=== PATIENT | male | born 1955 | race Caucasian/White ===

== ENCOUNTER 2018-07-08 04:55 | Inpatient (IN) ==
[2018-07-08] MEDS ORDERED: LORazepam 1 MG/2 ML VIAL IV STA (05:17)
--- NOTE | 2018-07-08 05:22 | Emergency Department Note ---
History of Present Illness General Chief complaint: Chest Pain Stated complaint: CHEST PAIN, SOB, WEAKNESS, DIZZY History of Present Illness Maximum Pain Intensity: 5 This 63-year-old presents to the ER complaining of chest pain and dyspnea Location: Chest Quality: Achy Severity: Moderate Duration: One day Timing: Started yesterday Context: Symptoms persisted and patient came in Modifying factors: better with nothing; worse with nothing Patient is on methotrexate for his RA. No prior heart testing. No history of blood clots. He has injured his left leg recently from a fall. No family history of heart disease or blood clots. Patient denies personal history of blood pressure, cholesterol, diabetes alcohol or drug abuse or tobacco use. Patient is concerned he might have a blood clot. Patient denies abdominal pain, fever, chills, flulike illness. No diaphoresis. Home Medications Home Medications Medication Instructions Recorded Confirmed Type methotrexate sodium 2.5 mg PO WK 07/08/18 07/08/18 History naproxen sodium [Aleve] 220 mg PO BID PRN 07/08/18 07/08/18 History prednisone 10 mg PO WK PRN 07/08/18 07/08/18 History Allergies Allergy/AdvReac Type Severity Reaction Status Date / Time No Known Allergies Allergy Unverified 07/08/18 05:52 Past Med/Surg History Medical History Rheumatoid arthritis Social History Feels Safe at Home: Yes Smoking Status: Never smoker Review of Systems A total of 10 systems reviewed and were otherwise negative Physical Exam Vital Signs Vital Signs - 24 hr 07/08/18 05:02 07/08/18 05:24 07/08/18 06:11 Temperature 37 C Temperature Source Oral Sepsis Recent Fever Within 48 Hours No Sepsis New/Unexplained Change in Mental Status No Sepsis Action Taken by Nursing No Action Required Pulse Rate 90 Pulse Rate [Apical] 90 Respiratory Rate 20 21 Respiratory Effort / Characteristics Non-Labored Respiratory Depth Normal Blood Pressure 145/82 H Blood Pressure [Right Arm] 130/82 Blood Pressure Mean 103 Blood Pressure Mean [Right Arm] 98 Blood Pressure Position Sitting Pulse Oximetry 97 96 86 L Oxygen Delivery Method Room Air Room Air Room Air VITALS: Vitals are noted on the nurse's note and reviewed by myself. Vital signs stable. GENERAL: White male mildly anxious appearing, in no acute distress, nondiaphoretic, well-developed well-nourished. SKIN: The skin was without rashes, erythema, edema, or bruising. There is no tenting of the skin. Capillary reflex less than 2 seconds. HEAD: Normocephalic atraumatic. EARS: External auditory canals clear, tympanic membranes pearly schultz without er ythema or effusion bilaterally. EYES: Pupils equal round and reactive to light and accommodation. Conjunctivae without injection, sclerae without icterus. Extraocular movements intact. NOSE: Patent, turbinates without inflammation or discharge. MOUTH: Mucous membranes moist. Pharynx without erythema or exudate. Uvula midline. Airway patent. Tongue does not deviate. NECK: Supple without nuchal rigidity. No lymphadenopathy. No thyromegaly. Cervical spine is nontender. No JVD. HEART: Regular rate and rhythm without murmurs gallops or rubs. LUNGS: Clear to auscultation bilaterally without wheezes, rales or rhonchi. No retractions or accessory muscle use. ABDOMEN: Positive bowel sounds x 4. Normal tympanic percussion. Soft, nontender, without masses or organomegaly. Barahona sign negative. No guarding or rebound tenderness. No CVA tenderness MUSCULOSKELETAL: No muscle atrophy, noted. +1 pitting edema up to the mid tib- fib bilaterally. Chronic venous stasis changes bilaterally. Unchanged per family NEURO: Patient was alert and oriented to person place and time. Normal sensation to light and sharp touch. No focal neurological deficits. Course Administered Medications Ioversol (Optiray 320 125ml) 125 ml IV ONCE PRN PRN Reason: Interaction Checking Stop: 07/12/18 05:51 Last Admin: 07/08/18 05:52 Dose: 119 ml Documented by: [id number] Discontinued Medications Lorazepam (Ativan) 1 mg in 2 mls @ 2 mls/min IV NOW STA Stop: 07/08/18 05:18 Last Admin: 07/08/18 05:54 Dose: 2 mls/min Documented by: [id number] Medical Decision Making Medical Records Attestation: I reviewed the patient's medical records. Home Medications Current Medication List: was personally reviewed by me Laboratory Data Attestation: I reviewed the patient's lab results. Result diagrams: 07/08/18 05:15 07/08/18 05:15 Lab Results 07/08/18 07/08/18 07/08/18 Range/Units 05:15 05:15 05:21 WBC 10.88 H (4.8-10.8) K/uL RBC 4.34 L (4.7-6.1) M/uL Hgb 12.5 L (14.0-18.0) g/dL POC Hgb 12.9 L (14.0-18.0) g/dl Hct 37.9 L (42-52) % POC Hct 38 L (42-52) % MCV 87.3 (80-100) fL MCH 28.8 (25-34) pg MCHC 33.0 (32-36) g/dL RDW Std Deviation 54.0 H (36.4-46.3) fL RDW Coeff of Arlyn 16.9 H (11.5-14.5) % Plt Count 356 (130-400) K/uL MPV 9.9 (7.4-10.4) fL Immature Gran % (Auto) 0.2 % Neut % (Auto) 86.9 % Lymph % (Auto) 6.4 % Highland % (Auto) 6.3 % Eos % (Auto) 0.0 % Baso % (Auto) 0.2 % Immature Gran # (Auto) 0.02 (0.00-0.02) K/uL Neut # (Auto) 9.45 H (1.4-6.5) K/uL Lymph # (Auto) 0.70 L (1.2-3.4) K/uL Highland # (Auto) 0.69 H (0.11-0.59) K/uL Eos # (Auto) 0.00 (0-0.5) K/uL Baso # (Auto) 0.02 (0-0.2) K/uL POC D-Dimer (0-450) ng/mlFEU POC Sodium 138 (135-144) mEq/L Sodium 136 (136-145) mmol/L POC Potassium 4.5 (3.3-5.0) mEq/L Potassium 4.4 (3.5-5.1) mmol/L POC Chloride 102 (101-112) mEq/L Chloride 105 (98-107) mmol/L Carbon Dioxide 27 (21-32) mmol/L POC Total CO2 23 L (24-31) mEq/l Anion Gap 4.0 (3-11) POC Anion Gap 18.0 (16-25) mmol/L POC BUN 25 H (7-18) mg/dl BUN 26 H (7-18) mg/dl Creatinine 1.30 (0.6-1.4) mg/dl POC Creatinine 1.2 (0.6-1.3) mg/dl Est Cr Clr Drug Dosing 94.3 ml/min Est GFR ( Amer) 67.8 Est GFR (Non-Af Amer) 58.5 BUN/Creatinine Ratio 19.8 (10-20) Glucose 145 H (70-99) mg/dl POC Glucose (other) 146 H (70-99) mg/dl Calcium 8.7 (8.5-10.1) mg/dl POC Ioniz Calcium Raúl 1.22 (1.12-1.32) mmol/l Total Bilirubin 1.0 (0.2-1) mg/dl AST 72 H (15-37) U/L ALT 73 (12-78) U/L Alkaline Phosphatase 78 (45-117) U/L POC Troponin I (0-0.045) ng/ml Troponin I 0.103 H* (0-0.045) ng/ml Total Protein 6.8 (6.4-8.2) gm/dl Albumin 3.2 L (3.4-5.0) gm/dl Globulin 3.6 (2.5-4.0) gm/dl Albumin/Globulin Ratio 0.9 (0.9-2) Lipase 100 (73-393) U/L 07/08/18 Range/Units 05:21 WBC (4.8-10.8) K/uL RBC (4.7-6.1) M/uL Hgb (14.0-18.0) g/dL POC Hgb (14.0-18.0) g/dl Hct (42-52) % POC Hct (42-52) % MCV (80-100) fL MCH (25-34) pg MCHC (32-36) g/dL RDW Std Deviation (36.4-46.3) fL RDW Coeff of Arlyn (11.5-14.5) % Plt Count (130-400) K/uL MPV (7.4-10.4) fL Immature Gran % (Auto) % Neut % (Auto) % Lymph % (Auto) % Highland % (Auto) % Eos % (Auto) % Baso % (Auto) % Immature Gran # (Auto) (0.00-0.02) K/uL Neut # (Auto) (1.4-6.5) K/uL Lymph # (Auto) (1.2-3.4) K/uL Highland # (Auto) (0.11-0.59) K/uL Eos # (Auto) (0-0.5) K/uL Baso # (Auto) (0-0.2) K/uL POC D-Dimer > 450 H* (0-450) ng/mlFEU POC Sodium (135-144) mEq/L Sodium (136-145) mmol/L POC Potassium (3.3-5.0) mEq/L Potassium (3.5-5.1) mmol/L POC Chloride (101-112) mEq/L Chloride (98-107) mmol/L Carbon Dioxide (21-32) mmol/L POC Total CO2 (24-31) mEq/l Anion Gap (3-11) POC Anion Gap (16-25) mmol/L POC BUN (7-18) mg/dl BUN (7-18) mg/dl Creatinine (0.6-1.4) mg/dl POC Creatinine (0.6-1.3) mg/dl Est Cr Clr Drug Dosing ml/min Est GFR ( Amer) Est GFR (Non-Af Amer) BUN/Creatinine Ratio (10-20) Glucose (70-99) mg/dl POC Glucose (other) (70-99) mg/dl Calcium (8.5-10.1) mg/dl POC Ioniz Calcium Raúl (1.12-1.32) mmol/l Total Bilirubin (0.2-1) mg/dl AST (15-37) U/L ALT (12-78) U/L Alkaline Phosphatase (45-117) U/L POC Troponin I 0.07 H (0-0.045) ng/ml Troponin I (0-0.045) ng/ml Total Protein (6.4-8.2) gm/dl Albumin (3.4-5.0) gm/dl Globulin (2.5-4.0) gm/dl Albumin/Globulin Ratio (0.9-2) Lipase (73-393) U/L Imaging Data Attestation: I personally reviewed and interpreted this imaging study as follows: MDM Narrative Prior records/ancillary studies reviewed. Triage Nursing notes reviewed. Additional history obtained from family. The patient's history was concerning for chest pain. Differential diagnosis: Etiologies such as cardiac ischemia, aortic dissection, pulmonary embolism, pneumonia, pneumothorax, musculoskeletal, infections, pericarditis, myocarditis, esophageal rupture, gastrointestinal, as well as others were entertained. Physical examination: As above. ER treatment provided: Ativan IV On reassessment the patient felt better. Diagnostic interpretation by me: The electrocardiogram was negative for pathologic change. Poor baseline, normal sinus, normal intervals, no acute ST-T wave changes. Impression normal sinus rhythm interpreted by myself I think arrhythmia is unlikely. EKG shows normal sinus rhythm with no interval abnormalities such as QT prolongation or WPW. There are no findings to suggest Brugada syndrome. Cardiac monitoring in the emergency department reveals no tachycardic or bradycardic dysrhythmia. Hypertrophic cardiomyopathy was considered but there are no clear historical elements pointing toward this. EKG is not suggestive. The QRS voltage is not extremely large and there are no suggestive Q waves. Repeat EKG x2 with no acute changes noted. The labs revealed + trop Mild leukocytosis Imaging studies: Chest x-ray with no acute consolidation, pneumothorax or free air per my interpretation CTA CHEST: No visualized pulmonary embolus. Scant right and possible left pleural effusions. No pneumothorax. Interlobular septal thickening with groundglass attenuation in the lower lobes, right worse than left. Appearance is nonspecific though pneumonitis or other inflammatory/infectious etiology could be considered. Centrilobular left upper lobe emphysema and diffuse, multilobar cystic lung changes. Correlate with history. Dependent atelectasis. Borderline cardiomegaly. Radiologist: Ludin Coffey MD HEART SCORE: Hx: high/mod/low suspicion: 0 ECG: ST depression/nonspecific changes/normal: 0 Age: Greater than 65/45-64/less than 45: 1 Risk factors: (Hypertension, hyperlipidemia, diabetes, coronary disease, tobacco use, cocaine use): 1 Troponin: Greater than 2 times normal limits/1-2 times normal limits/normal: 0 Total: 2 Consultation: A consultation was placed with the hospitalist, Dr Gamino. The case was discussed and diagnostics were reviewed. The patient was evaluated in the ER for further treatment. Exam and history seem consistent with chest pain with pneumonitis on CAT scan and elevated troponin. Patient started antibiotics. Blood cultures were ordered. Medicine was consulted. Patient felt Completely pain-free after the Ativan. He is agreeable treatment plan of admission. By the evaluation outlined above emergent etiologies such as aortic dissection, pulmonary embolism, pneumothorax, pericarditis, myocarditis, gastrointestinal, as well as others were deemed relatively unlikely. The pt informed about the findings as listed above. All questions were answered and pleased with the treatment. Case reviewed with my attending The chart was completed utilizing [email or web address] voice recognition software. Grammatical errors, random word insertions, pronoun errors, and incomplete sentences are an occassional consequence of this system due to software limitations, ambient noise, and hardware issues. Any formal questions or concerns about the content, text, or information contained within the body of this dictation should be directly addressed to the physician assistant merchandiser for clarification. Impression & Plan Atypical chest pain, Pneumonia, Elevated troponin Discharge Plan Visit Data Chief Complaint: Chest Pain Stated Complaint: CHEST PAIN, SOB, WEAKNESS, DIZZY ED Provider: Viola Grijalva ED Midlevel Provider: Rubina Lam Discharge Problem: Atypical chest pain, Pneumonia, Elevated troponin Patient Disposition: Admitted As Inpatient Condition: Good Forms Stand Alone Forms: Call Back Authorization, [facility] Prescriptions Prescriptions: No Action prednisone 10 mg Tablet 10 mg PO WK PRN (Reason: Unknown) RF: 0 methotrexate sodium 2.5 mg Tablet 2.5 mg PO WK RF: 0 naproxen sodium [Aleve] 220 mg Capsule 220 mg PO BID PRN (Reason: Pain) RF: 0 Referrals Referrals: PCP,NO [Primary Care Provider] -
[2018-07-08 05:32] LABS: Basophils # (auto) 0.02 K/uL (0-0.2); Basophils % (auto) 0.2 %; Hematocrit (blood only) 37.9 % (42-52); Hemoglobin 12.5 g/dL (14.0-18.0); Immature Granulocytes # (auto) 0.02 K/uL (0.00-0.02); Immature Granulocytes % (auto) 0.2 %; Lymphocytes % (auto) 6.4 %; Mean Corpuscular Volume 87.3 fL (80-100); Mean Platelet Volume 9.9 fL (7.4-10.4); Monocytes # (auto) 0.69 K/uL (0.11-0.59); Monocytes % (auto) 6.3 %; Neutrophils # (auto) 9.45 K/uL (1.4-6.5); Neutrophils % (auto) 86.9 %; Platelet Count 356 K/uL (130-400); RDW Coefficient of Variation 16.9 % (11.5-14.5); Red Blood Count 4.34 M/uL (4.7-6.1); White Blood Count 10.88 K/uL (4.8-10.8)
[2018-07-08 05:34] LABS: iSTAT Creatinine 1.2 mg/dl (0.6-1.3); iSTAT Hemoglobin 12.9 g/dl (14.0-18.0); iSTAT Ionized Calcium 1.22 mmol/l (1.12-1.32); iSTAT Potassium 4.5 mEq/L (3.3-5.0)
[2018-07-08] MEDS ORDERED: OPTIRAY 320 125ml IV PRN (05:52)
[2018-07-08 05:53] LABS: Albumin Level 3.2 gm/dl (3.4-5.0); BUN Creatinine Ratio 19.8 (10-20); Calcium 8.7 mg/dl (8.5-10.1); Creatinine Clr Calc Pharmacy 94.3 ml/min; Est GFR (African American) 67.8; Est GFR (Non-African American) 58.5; Potassium 4.4 mmol/L (3.5-5.1)
[2018-07-08 06:19] LABS: Albumin Globulin Ratio 0.9 (0.9-2); Globulin 3.6 gm/dl (2.5-4.0); Total Protein 6.8 gm/dl (6.4-8.2); Troponin I 0.103 ng/ml (0-0.045)
[2018-07-08] MEDS ORDERED: cefTRIAXone SODIUM 1,000 MG/50 ML BAG IV STA (06:23)
[2018-07-08] MEDS ORDERED: AZITHROMYCIN 250 MG TAB PO ONE (06:23)
--- NOTE | 2018-07-08 06:59 | XRay Report ---
XR chest 1V portable CLINICAL HISTORY: Chest pain. Shortness of breath. COMPARISON STUDY: No previous studies for comparison. FINDINGS: Moderate cardiomegaly is noted. There is no pneumothorax or pleural effusion. There is mild asymmetric interstitial thickening and opacity within the right lower lung. Minimal left basilar opa city favors atelectasis. IMPRESSION: 1. Mild asymmetric interstitial thickening and opacity within the right lung. A mild infectious proce ss is favored. Asymmetric pulmonary edema could appear similar although is considered less likely. 2. Moderate cardiomegaly. Electronically signed by: Quincy Spears M.D. 07/08/2018 6:58 AM
[2018-07-08 07:06] LABS: HCO3 ABG 21 mmol/L (19-24); PCO2 ABG 31 mmHg (35-46); PO2 ABG 87 mm/Hg (80-95); pH ABG 7.44 (7.35-7.45)
[2018-07-08 07:07] LABS: Allen Test Pos (Pos)
--- NOTE | 2018-07-08 07:08 | History & Physical Report ---
Date of Service July 08, 2018 Assessment & Plan (1) Acute hypoxemic respiratory failure: Secondary to acute CHF ? 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 Hemoglobin drop from baseline ? Secondary to MTRX Steroid-induced hyperglycemia rule out DM past tobacco abuse. PCU Supplemental O2 Baseline ABG Diuretic Rx Strict I/Os, daily weights, CHF education Low-dose beta-minesh TTE, Cardiology consult RE new onset CHF Outpatient sleep study Follow troponin, aspirin for CAD prevention until ACS ruled out Abdominal ultrasound ro ascites Doxycycline, local measures for LE cellulitis LE venous Dopplers rule out DVT Check hemoglobin A1c Anemia workup DVT prophylaxis. Lovenox subcu Full code Total critical time was 45 minutes. History of Present Illness Chief Complaint: Chest pain, SOB Primary Care Provider: NO PCP History obtained from patient, family, and records. Medical history significant for rheumatoid arthritis, chronic LE lymphedema, chronic anemia enclosing (baseline hemoglobin 13), past tobacco abuse. 1 month history of increasing shortness of breath especially on exertion, fluid retention, abdominal distention, and increased bilateral leg swelling. Patient unable to lie flat on the bed when sleeping for years now. No unusual cough symptoms. Patient noted by to be snoring during sleep and having episodes of breathing cessation during sleep which would rouse patient during sleep. No consultations done. No previous sleep studies. Yesterday patient noted transient achy substernal discomfort with worsening shortness of breath symptoms. Increased leg redness noted in the last few days. At the ER, patient noted to be hypoxemic O2 sats 80s. Patient given Ceftriaxone and azithromycin at the ER for pneumonitis on CT. 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 Allergies Allergy/AdvReac Type Severity Reaction Status Date / Time No Known Allergies Allergy Unverified 07/08/18 05:52 Home Medications Home Medications Medication Instructions Recorded Confirmed Type methotrexate sodium 2.5 mg PO WK 07/08/18 07/08/18 History naproxen sodium [Aleve] 220 mg PO BID PRN 07/08/18 07/08/18 History prednisone 10 mg PO WK PRN 07/08/18 07/08/18 History Past Med/Surg History Medical History Rheumatoid arthritis Social History Preferred Language: [place] Communication Ability: Effective Beliefs That Will Affect Care: None Current Living Situation: Spouse Other Information That Helps Us Care for You: No Feels Safe at Home: Yes Safety Concerns: Feels Safe At This Time Smoking Status: Never smoker Hx Alcohol Use: No Hx Substance Use: No Review of Systems As per HPI, all 10 systems reviewed, all other ROS negative Physical Exam Vital Signs (Past 24 Hours): Last Vital Signs Temp 37 C 07/08/18 05:02 Pulse 86 07/08/18 06:50 Resp 20 07/08/18 06:50 BP 127/89 07/08/18 06:50 Pulse Ox 95 07/08/18 06:50 Physical Exam: GENERAL: Comfortable, no respiratory distress, obese SKIN: Pallor , warm HEENT: Partial alopecia, pale palpebral conjunctivae, no ptosis, dry buccal mucosa NECK : Supple, short, no tenderness CHEST : Decreased breath sounds , no tenderness HEART : RRR, no obvious murmurs ABDOMEN: Some distention, nontender EXTREMITIES : meseret LE swelling/induration with focal contusions/abrasions, no LE tenderness, no other conspicuous deformities noted NEUROLOGIC : Coherent, no facial asymmetry, no other gross focality Results & Data Laboratory Results Laboratory Results WBC 10.88 K/uL (4.8-10.8) H 07/08/18 05:15 RBC 4.34 M/uL (4.7-6.1) L 07/08/18 05:15 Hgb 12.5 g/dL (14.0-18.0) L 07/08/18 05:15 POC Hgb 12.9 g/dl (14.0-18.0) L 07/08/18 05:21 Hct 37.9 % (42-52) L 07/08/18 05:15 POC Hct 38 % (42-52) L 07/08/18 05:21 MCV 87.3 fL (80-100) 07/08/18 05:15 MCH 28.8 pg (25-34) 07/08/18 05:15 MCHC 33.0 g/dL (32-36) 07/08/18 05:15 RDW Std Deviation 54.0 fL (36.4-46.3) H 07/08/18 05:15 RDW Coeff of Arlyn 16.9 % (11.5-14.5) H 07/08/18 05:15 Plt Count 356 K/uL (130-400) 07/08/18 05:15 MPV 9.9 fL (7.4-10.4) 07/08/18 05:15 Immature Gran % (Auto) 0.2 % 07/08/18 05:15 Neut % (Auto) 86.9 % 07/08/18 05:15 Lymph % (Auto) 6.4 % 07/08/18 05:15 Schuyler % (Auto) 6.3 % 07/08/18 05:15 Eos % (Auto) 0.0 % 07/08/18 05:15 Baso % (Auto) 0.2 % 07/08/18 05:15 Immature Gran # (Auto) 0.02 K/uL (0.00-0.02) 07/08/18 05:15 Neut # (Auto) 9.45 K/uL (1.4-6.5) H 07/08/18 05:15 Lymph # (Auto) 0.70 K/uL (1.2-3.4) L 07/08/18 05:15 Schuyler # (Auto) 0.69 K/uL (0.11-0.59) H 07/08/18 05:15 Eos # (Auto) 0.00 K/uL (0-0.5) 07/08/18 05:15 Baso # (Auto) 0.02 K/uL (0-0.2) 07/08/18 05:15 POC D-Dimer > 450 ng/mlFEU (0-450) H* 07/08/18 05:21 ABG pH 7.44 (7.35-7.45) 07/08/18 06:47 ABG pCO2 31 mmHg (35-46) L 07/08/18 06:47 ABG pO2 87 mm/Hg (80-95) 07/08/18 06:47 ABG HCO3 21 mmol/L (19-24) 07/08/18 06:47 ABG O2 Saturation 97.0 % (90-95) H 07/08/18 06:47 ABG Base Excess -2.5 mEq/L (-9-1.8) 07/08/18 06:47 Adrien Test Pos (Pos) 07/08/18 06:47 Barometric Pressure 738.3 mm/Hg 07/08/18 06:47 Oxygen Given 3L 07/08/18 06:47 POC Sodium 138 mEq/L (135-144) 07/08/18 05:21 Sodium 136 mmol/L (136-145) 07/08/18 05:15 POC Potassium 4.5 mEq/L (3.3-5.0) 07/08/18 05:21 Potassium 4.4 mmol/L (3.5-5.1) 07/08/18 05:15 POC Chloride 102 mEq/L (101-112) 07/08/18 05:21 Chloride 105 mmol/L (98-107) 07/08/18 05:15 Carbon Dioxide 27 mmol/L (21-32) 07/08/18 05:15 POC Total CO2 23 mEq/l (24-31) L 07/08/18 05:21 Anion Gap 4.0 (3-11) 07/08/18 05:15 POC Anion Gap 18.0 mmol/L (16-25) 07/08/18 05:21 POC BUN 25 mg/dl (7-18) H 07/08/18 05:21 BUN 26 mg/dl (7-18) H 07/08/18 05:15 Creatinine 1.30 mg/dl (0.6-1.4) 07/08/18 05:15 POC Creatinine 1.2 mg/dl (0.6-1.3) 07/08/18 05:21 Est Cr Clr Drug Dosing 94.3 ml/min 07/08/18 05:15 Est GFR ( Amer) 67.8 07/08/18 05:15 Est GFR (Non-Af Amer) 58.5 07/08/18 05:15 BUN/Creatinine Ratio 19.8 (10-20) 07/08/18 05:15 Glucose 145 mg/dl (70-99) H 07/08/18 05:15 POC Glucose (other) 146 mg/dl (70-99) H 07/08/18 05:21 Calcium 8.7 mg/dl (8.5-10.1) 07/08/18 05:15 POC Ioniz Calcium Raúl 1.22 mmol/l (1.12-1.32) 07/08/18 05:21 Total Bilirubin 1.0 mg/dl (0.2-1) 07/08/18 05:15 AST 72 U/L (15-37) H 07/08/18 05:15 ALT 73 U/L (12-78) 07/08/18 05:15 Alkaline Phosphatase 78 U/L (45-117) 07/08/18 05:15 POC Troponin I 0.07 ng/ml (0-0.045) H 07/08/18 05:21 Troponin I 0.103 ng/ml (0-0.045) H* 07/08/18 05:15 Total Protein 6.8 gm/dl (6.4-8.2) 07/08/18 05:15 Albumin 3.2 gm/dl (3.4-5.0) L 07/08/18 05:15 Globulin 3.6 gm/dl (2.5-4.0) 07/08/18 05:15 Albumin/Globulin Ratio 0.9 (0.9-2) 07/08/18 05:15 Lipase 100 U/L (73-393) 07/08/18 05:[address] chest initial read: No pulmonary embolism, scant right and possible left pleural effusions, no pneumothorax. Anterior lobular septal thickening with groundglass attenuation in the lower lobes right greater than the left. Emphysema, borderline cardiomegaly EKG as per my interpretation rate 90, NSR, T wave flattening lateral leads, PVCs
[2018-07-08 07:11] LABS: INR 1.1 (0.9-1.1); Partial Thromboplastin Ratio 1.1; Partial Thromboplastin Time 29.3 Seconds (21.0-31.0); Prothrombin Time 11.1 Seconds (9.0-12.0)
[2018-07-08] MEDS ORDERED: ALBUT/IPRATROP 3MG/0.5MG NEB 3 ML VIAL NEB STA (07:12)
[2018-07-08 07:25] LABS: Influenza A virus by PCR Neg for Influ A (Neg); Influenza B virus by PCR Neg for Influ B (Neg)
[2018-07-08] MEDS ORDERED: FUROSEMIDE 40 MG/4 ML VIAL IV STA (07:33)
--- NOTE | 2018-07-08 07:35 | CT Scan Report ---
CT ANGIOGRAM OF THE CHEST CLINICAL HISTORY: Atypical chest pain. Dyspnea. COMPARISON STUDY: Chest x-ray dated 07/08/2018. TECHNIQUE: Following the IV administration of 119 cc of Optiray 320, CT angiogram of the chest was pe rformed from the upper abdomen to the thoracic inlet utilizing the pulmonary embolus protocol. Images are reviewed in the axial, sagittal, and coronal planes. 3-D MIPS images are created and assessed. I V contrast was administered without complication. A dose lowering technique was utilized adhering to the principles of ALARA. CT DOSE: 842.63 mGy.cm FINDINGS: Thyroid: Atrophic and heterogeneous. Thoracic aorta: The thoracic aorta is normal in caliber and demonstrates standard 3-vessel arch anato my. No dissection is seen. Pulmonary vasculature: The pulmonary trunk is normal in caliber. There are no filling defects identif ied in main, lobar, or segmental pulmonary branches to suggest pulmonary embolus. Heart: The heart is normal in size and without pericardial effusion. Lungs and pleural spaces: Evaluation of lung parenchyma is modestly degraded by motion artifact. Adva nced emphysema is noted. There is bibasilar scarring/atelectasis. No airspace consolidation is seen t ypical for pneumonia. Trace pleural fluid is noted at the right lung base. A punctate calcified granu gayatri is seen at the right lung base. Mediastinum: There are numerous mildly enlarged mediastinal lymph nodes. Right peritracheal nodes mitlon sure up to 10 mm in short axis. AP window nodes measure up to 9 mm short axis. Zohreh: Mildly enlarged hilar nodes measure up to 16 mm in short axis. Axillae: There is no axillary lymphadenopathy. Upper abdomen: The liver is cirrhotic in morphology and heterogeneous in attenuation. There is nodula rity of the hepatic surface contour. There is a small hiatal hernia. The spleen is normal in size. Skeletal structures: The skeletal structures are osteopenic. Degenerative change is noted in the shou lders and thoracic spine. No lytic or blastic bony lesions are seen. IMPRESSION: 1. There is no evidence of pulmonary embolus in the main, lobar, or segmental pulmonary arteries. 2. Cardiomegaly and emphysema. 3. Cirrhotic liver morphology. 4. Trace pleural fluid is seen in the right lung base. 5. Mildly enlarged mediastinal and hilar lymph nodes are nonspecific and may be on a reactive basis. Clinical correlation will be required. 6. Additional findings as above. Electronically signed by: Han Page M.D. 07/08/2018 7:34 AM
[2018-07-08 07:47] LABS: Magnesium 2.1 mg/dl (1.8-2.4); Troponin I 0.096 ng/ml (0-0.045)
[2018-07-08] MEDS ORDERED: MoRPHine SULFATE 4 MG/ML 1 ML CARP\\VIAL IV PRN (08:26)
[2018-07-08] MEDS ORDERED: PROCHLORPERAZINE 5 MG in SYRINGE 4 ML IV PRN (08:26)
[2018-07-08] MEDS ORDERED: IPRATROPIUM BROMIDE NEB SOLN 0.02% 2.5 ML VIAL INH PRN (08:26)
[2018-07-08] MEDS ORDERED: LEVALBUTEROL 1.25MG/0.5ML NEB INH PRN (08:26)
[2018-07-08] MEDS ORDERED: NITROGLYCERIN SL 0.4 MG/TAB TAB SL PRN (08:26)
[2018-07-08] MEDS ORDERED: XOPENEX/ATROVENT 1.25mg/0.5MG NEB COMBO NEB PRN (08:26)
[2018-07-08] MEDS ORDERED: METOPROLOL TARTRATE 25 MG TAB PO SCH (09:00)
[2018-07-08] MEDS ORDERED: PERFLUTREN LIPID MICROSPHERE (DEFINITY) IV ONE (09:14)
[2018-07-08 09:55] LABS: Estimated Average Glucose 126 mg/dl
[2018-07-08] MEDS: ASPIRIN 81 MG ECTAB PO SCH (10:36)
--- NOTE | 2018-07-08 10:36 | Ultrasound Report ---
US venous doppler LE BI CLINICAL HISTORY: leg swelling COMPARISON STUDY: 11/13/2017 FINDINGS: Real-time and color flow Doppler imaging were performed. Flow was seen within the femoral, popliteal and calf veins with no intraluminal thrombus demonstrated. The saphenous vein is patent. IMPRESSION: No evidence of lower extremity DVT. Electronically signed by: Berhane Harrington M.D. 07/08/2018 10:35 AM
[2018-07-08] MEDS: DOXYCYCLINE HYCLATE 100 MG CAP PO SCH ×2 (10:37→21:02)
[2018-07-08] MEDS: ENOXAPARIN INJ 40 MG/0.4 ML SYR SQ SCH (10:38)
--- NOTE | 2018-07-08 10:39 | Ultrasound Report ---
US abdomen limited CLINICAL HISTORY: Abdominal distention COMPARISON STUDY: No previous studies for comparison. FINDINGS: A limited abdominal ultrasound was performed to evaluate for ascites. A four-quadrant surve y revealed no ascites. IMPRESSION: No ascites identified. Electronically signed by: Berhane Harrington M.D. 07/08/2018 10:37 AM
[2018-07-08] MEDS ORDERED: FUROSEMIDE 40 MG in SYRINGE 0 ML IV ONE ×2 (17:00→18:09)
[2018-07-08] MEDS ORDERED: Nursing to Pharmacy Communication ONE (19:07)
[2018-07-08] MEDS: METOPROLOL SUCC 25MG EXT REL TAB PO SCH (21:02)
--- NOTE | 2018-07-09 01:45 | Consultation Report ---
DATE OF CONSULTATION: 07/08/2018 REFERRING PHYSICIAN: Geovany Gamino MD. The patient has no primary care physician at this time. HISTORY OF PRESENT ILLNESS: The patient is a 63-year-old male with past medical history per discussion with the patient and review of records is notable for longstanding rheumatoid arthritis on combination of methotrexate and intermittent prednisone per patient. He noticed he has not seen medical care for extended period of time. He has been currently receiving medications through mail from [facility]. He denies any prior history of cardiac disease historically, but presents this admission, noting several weeks to months of gradually increasing lower extremity edema and dyspnea with worsening orthopnea and chest pressure over the last 1-2 days. Symptoms were associated with increasing lower extremity edema and abdominal bloating due to worsening complaints. He sought medical care after reading online concerns regarding possible pulmonary embolus. Initial evaluation revealed no evidence of pulmonary emboli or thromboembolus. Examination suggested right heart failure greater than left with edema and abdominal bloating. Echocardiogram since admission, subsequently, has demonstrated diffuse cardiomyopathy. He is referred now for further evaluation. He denies any history of myocardial infarction, angina, TIA or stroke, rheumatic fever, scarlet fever, renal or hepatic disease. He is unaware of history of sleep apnea but does note recent difficulties with sleep disruption due to orthopnea. Denies headache or visual changes, rash, or arthritic complaint. Notes no melena or hematochezia, dysuria or hematuria. Notes no prior history of hypertension. Notes no specific symptoms of chest pain or discomfort. He has been very sedentary over the winter months due to occupation and several mechanical falls with mild injuries when walking on ice. REVIEW OF SYSTEMS: Otherwise negative. ALLERGIES: None. MEDICATIONS: At home are methotrexate 2.5 mg weekly, naproxen 220 mg p.o. b.i.d. p.r.n. and prednisone 10 mg p.o. weekly p.r.n. PAST SURGICAL HISTORY: Notable for cataract extractions and retinal detachment repair x2. FAMILY HISTORY: Notable for heart failure in mother. SOCIAL HISTORY: The patient resides in [place]. 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 He is a nonsmoker, nondrinker. PHYSICAL EXAMINATION: GENERAL: The patient is an obese, age-appropriate male in no acute distress when sitting upright, though dyspneic when lying flat. VITAL SIGNS: Heart rate 79, blood pressure is 116/80, O2 saturations 97% on room air. HEENT: Normocephalic and atraumatic. Nares without discharge. Throat was clear. NECK: Supple without thyromegaly, lymphadenopathy. There is no distinct jugular venous distention. Neck is thick. There are no carotid bruits. LUNGS: Reveal diminished breath sounds bibasilar. CARDIOVASCULAR: Regular with distant heart sounds. There is no S3 gallop. PMI is nondisplaced. ABDOMEN: Obese, soft with moderate fluid wave. There is no palpable hepatosplenomegaly. EXTREMITIES: Without cyanosis or clubbing. There is 3+ lower extremity edema to the knees. Pulses are palpable bilaterally. There is no audible abdominal or femoral bruit. NEUROLOGIC: The patient is alert and answering questions appropriately. DATA: EKG on presentation reveals sinus rhythm with premature atrial beats. Nonspecific ST segment changes. Repeat EKG demonstrates similar findings. Echocardiogram performed on 07/08/2018 demonstrated technically limited study secondary to patient body habitus. There is diffuse LV dysfunction, EF 35%-40%. No distinct segmental features noted. No significant valvular disease with mild mitral insufficiency. Tricuspid valve regurgitant velocities were not able to be obtained. Chest x-ray on presentation revealed mild increase in interstitial markings asymmetrically right greater than left. CT scan of the chest revealed no evidence of pulmonary embolus, cardiomegaly and emphysematous changes are noted. Cirrhotic liver morphology have been expressed. LABORATORY STUDIES: White cell count was 10.8, hemoglobin 12.5, platelet count 356. Initial point of care troponin was 0.07. Serial troponins have demonstrated 0.096 and 0.1. BNP was 1642 on presentation. Sodium is 138, potassium 4.5, chloride 102, bicarb 23, BUN 25, creatinine 1.2. AST was 72, ALT was 73. Albumin level is 3.4. IMPRESSION: Complex 63-year-old male who carries a history of underlying rheumatoid arthritis on immunosuppressive therapy with methotrexate and intermittent prednisone. No recent ongoing medical care, presents now with subacute worsening dyspnea, orthopnea, right greater than left heart failure by exam and history. Echocardiogram demonstrates diffuse LV dysfunction, etiology undiscerned at this time. Findings are consistent with new onset cardiomyopathy. Discussed in detail with the patient treatment and therapies as patient remains symptomatic, additional dose of furosemide will be given this evening, begin initiating guideline-based medical regimen, adding Toprol-XL 12.5 mg twice per day for heart rate and blood pressure control. Anticipate adding JEFFERY inhibitor as course progresses, consider diagnostic cardiac catheterization. Based on laboratory studies added including TSH, serum protein electrophoresis, iron studies already as ordered. We will continue to follow the patient closely in hospital. I agree with evaluation of possible underlying sleep apnea as an additional contributing factor.
[2018-07-09 05:43] LABS: Basophils # (auto) 0.03 K/uL (0-0.2); Basophils % (auto) 0.4 %; Eosinophils # (auto) 0.38 K/uL (0-0.5); Eosinophils % (auto) 4.8 %; Hematocrit (blood only) 35.1 % (42-52); Hemoglobin 11.5 g/dL (14.0-18.0); Immature Granulocytes # (auto) 0.02 K/uL (0.00-0.02); Immature Granulocytes % (auto) 0.3 %; Lymphocytes # (auto) 1.78 K/uL (1.2-3.4); Lymphocytes % (auto) 22.7 %; Mean Corpuscular Hgb Conc 32.8 g/dL (32-36); Mean Corpuscular Volume 87.8 fL (80-100); Mean Platelet Volume 9.4 fL (7.4-10.4); Monocytes # (auto) 0.62 K/uL (0.11-0.59); Monocytes % (auto) 7.9 %; Neutrophils # (auto) 5.02 K/uL (1.4-6.5); Neutrophils % (auto) 63.9 %; Platelet Count 297 K/uL (130-400); RDW Coefficient of Variation 16.8 % (11.5-14.5); RDW Standard Deviation 53.9 fL (36.4-46.3); Reticulocyte % 1.6 % (0.5-2.0); Reticulocytes # 0.06 10^6/uL (0.02-0.10); White Blood Count 7.85 K/uL (4.8-10.8)
[2018-07-09 06:02] LABS: BUN Creatinine Ratio 21.2 (10-20); Calcium 8.3 mg/dl (8.5-10.1); Creatinine Clr Calc Pharmacy 99.6 ml/min; Est GFR (African American) 72.5; Est GFR (Non-African American) 62.5; Potassium 3.6 mmol/L (3.5-5.1)
[2018-07-09 06:12] LABS: Ferritin 125.3 ng/ml (8-388)
[2018-07-09] MEDS: METOPROLOL SUCC 25MG EXT REL TAB PO SCH ×2 (07:28→20:37)
[2018-07-09] MEDS: DOXYCYCLINE HYCLATE 100 MG CAP PO SCH ×2 (07:28→20:36)
[2018-07-09] MEDS: ENOXAPARIN INJ 40 MG/0.4 ML SYR SQ SCH (07:29)
[2018-07-09] MEDS: ASPIRIN 81 MG ECTAB PO SCH (07:29)
[2018-07-09 08:10] LABS: Folate (Folic Acid) 4.28 ng/ml (>5.38)
[2018-07-09] MEDS ORDERED: FUROSEMIDE 40 MG/4 ML VIAL IV STA (09:30)
[2018-07-09] MEDS ORDERED: POTASSIUM CHLORIDE 10 MEQ TABCR PO ONE (09:32)
[2018-07-09] MEDS: LISINOPRIL 2.5 MG TAB PO SCH (11:09)
--- NOTE | 2018-07-09 14:04 | Cardiology Progress Note ---
Date of Service July 09, 2018 Assessment & Plan (1) Cardiomyopathy: Patient with newly diagnosed diffuse cardiomyopathy with moderate left dysfunction, right greater than left heart failure manifesting with abdominal bloating edema Patient is improving with IV diuretics and has tolerated addition of low-dose Toprol to regimen. Additional dose of furosemide IV given this morning We will add low-dose JEFFERY inhibitor with lisinopril 2.5 mg/day Initial iron studies and thyroid functions are normal, lipids are not elevated Tentatively planned diagnostic coronary angiography in a.m., n.p.o. after midnight (2) Acute hypoxemic respiratory failure: Subjective Patient seen and examined, chart, telemetry reviewed. Patient had brisk diuresis overnight less dyspneic and orthopneic persistent lower extremity edema remains present. Telemetry reveals no tachyarrhythmias Physical Exam Vital Signs (Past 24 Hours): Last Vital Signs Temp 36.9 C 07/09/18 11:11 Pulse 84 07/09/18 11:11 Resp 20 07/09/18 11:11 BP 108/56 L 07/09/18 11:11 Pulse Ox 94 07/09/18 11:11 Constitutional: + obese; no acute distress Eyes: PERRL, conjunctivae normal, anicteric sclerae Neck: + thick neck Respiratory: Auscultation: + diminished lung sounds (But clear otherwise) Cardiovascular: Rate/Rhythm: regular rate and regular rhythm Heart Sounds: normal S1 and normal S2; no gallop, no murmur and no cardiac rub Extremities: + edema (2+ bilateral) Gastrointestinal (Abdomen): normal bowel sounds, soft, nontender, no hepatosplenomegaly Results & Data Laboratory Results Laboratory Results - last 24 hr 07/09/18 07/09/18 07/09/18 05:30 05:30 05:30 WBC 7.85 RBC 4.00 L Hgb 11.5 L Hct 35.1 L MCV 87.8 MCH 28.8 MCHC 32.8 RDW Std Deviation 53.9 H RDW Coeff of Arlyn 16.8 H Plt Count 297 MPV 9.4 Immature Gran % (Auto) 0.3 Neut % (Auto) 63.9 Lymph % (Auto) 22.7 Pitkin % (Auto) 7.9 Eos % (Auto) 4.8 Baso % (Auto) 0.4 Reticulocyte % (Auto) 1.6 Immature Gran # (Auto) 0.02 Neut # (Auto) 5.02 Lymph # (Auto) 1.78 Pitkin # (Auto) 0.62 H Eos # (Auto) 0.38 Baso # (Auto) 0.03 Reticulocyte # 0.06 Sodium 142 Potassium 3.6 D Chloride 107 Carbon Dioxide 27 Anion Gap 8.0 BUN 26 H Creatinine 1.23 Est Cr Clr Drug Dosing 99.6 Est GFR ( Amer) 72.5 Est GFR (Non-Af Amer) 62.5 BUN/Creatinine Ratio 21.2 H Glucose 94 Calcium 8.3 L Iron 37 TIBC 317 Transferrin 243 Ferritin 125.3 Triglycerides 86 Cholesterol 143 LDL Cholesterol, Calc 85 VLDL Cholesterol, Calc 17 HDL Cholesterol 41 Cholesterol/HDL Ratio 4 Vitamin B12 268 Folate 4.28 L TSH 3.170
--- NOTE | 2018-07-09 16:38 | Hospitalist Progress Note ---
Date of Service July 09, 2018 Assessment & Plan (1) Cardiomyopathy: Newly dx cardiomyopathy ECHO showed reduced EF btw 35-40% Cardiology on board Starting on Low dose Toprol and ACEI Lasix 40mg IV given again today Imflamatory marker pending Case discussed with cardiology and plan for cardiac cath in am Will make NPO after midnight Clinically improves Monitor BMP while on diuretic (2) Acute hypoxemic respiratory failure: possible related to cardiomyopathy vs pneumonia CXR showed mild asymmetric interstitial thickening and opacity within the right lung CTA showed no evidence for PE WBC elevated on admission On doxycycline BID Will repeat CXR in am Doubt about pneumonia Continue oxygen supplement (3) Anxiety: will add low dose of benzo prn while in the hospital (4) Elevated troponin: Due to demand ischemia from cardiomyopathy/fluid overload Troponin trending down EKG showed no ischemic changes Continue aspirin, toprol and statin Schedule for cardiac cath in am Denies any chest pain currently DVT px on Lovenox CODE STATUS full code Subjective Pt was seen and examined Lying in bed with no distress Pt said that he is very anxious to be in the hospital about the cardiac cath tomorrow He said that he is breathing slightly improves Denies any chest pain, palpitation, dizziness and fever Physical Exam Vital Signs (Past 24 Hours): Last Vital Signs Temp 36.6 C 07/09/18 15:37 Pulse 91 H 07/09/18 15:37 Resp 20 07/09/18 15:37 BP 103/64 07/09/18 15:37 Pulse Ox 96 07/09/18 15:37 Physical Exam: General- No acute distress, obesity Head- atraumatic Eyes- PERRL, EOMI, ENT- oropharynx clear Neck- supple, no JVD Lungs- clear to auscultation Heart- regular rhythm; no murmur Abdomen- normal bowel sounds, soft, nontender Extremities- no calf tenderness, +edema Neuro- alert, oriented x 3; PERRL, EOMI; no facial palsy; no dysarthria Skin- warm & dry
[2018-07-09] MEDS ORDERED: LORazepam 0.5 MG TAB PO PRN (18:47)
[2018-07-10] MEDS ORDERED: MIDAZOLAM HCL 1 MG/ML 2ML VIAL ONE (08:53)
[2018-07-10] MEDS ORDERED: fentaNYL citrate 100 MCG/2 ML VIAL ONE (08:53)
[2018-07-10] MEDS ORDERED: HEPARIN (PORCINE) 1000 UNIT/ML 10 ML (CATH LAB USE ONLY) ONE (08:53)
[2018-07-10] MEDS ORDERED: NiCARDipine HCL INJ 2.5 MG/ML 10 ML AMP ONE (08:53)
[2018-07-10] MEDS ORDERED: NITROGLYCERIN/D5W 100MCG/ML 20ML SYR ONE (08:54)
--- NOTE | 2018-07-10 09:19 | Cardiology Progress Note ---
Date of Service July 10, 2018 Assessment & Plan (1) Cardiomyopathy: Patient with newly diagnosed diffuse cardiomyopathy with moderate left dysfunction, right greater than left heart failure manifesting with abdominal bloating edema Patient has tolerated addition of Toprol, lisinopril, manifested good diuresis Plan diagnostic coronary angiography this morning. Procedure and risks explained in detail informed consent obtained (2) Acute hypoxemic respiratory failure: Subjective Patient seen and examined, chart, telemetry reviewed. Patient with continued diuresis. Some difficulty sleeping last night but no other acute complaints orthopnea has improved. No chest pains or tachypalpitations no arrhythmias on telemetry Physical Exam Vital Signs (Past 24 Hours): Last Vital Signs Temp 37.1 C 07/10/18 07:47 Pulse 84 07/10/18 07:47 Resp 20 07/10/18 07:47 BP 128/92 07/10/18 07:47 Pulse Ox 94 07/10/18 07:47 Constitutional: + obese; no acute distress Eyes: PERRL, conjunctivae normal, anicteric sclerae Neck: + thick neck Respiratory: Auscultation: + diminished lung sounds (But clear otherwise) Cardiovascular: Rate/Rhythm: regular rate and regular rhythm Heart Sounds: normal S1 and normal S2; no gallop, no murmur and no cardiac rub Extremities: + edema (2+ bilateral) Gastrointestinal (Abdomen): normal bowel sounds, soft, nontender, no hepatosplenomegaly Results & Data Laboratory Results Laboratory Results - last 24 hr 07/09/18 23:50 Stool Occult Bld Scrn Negative
--- NOTE | 2018-07-10 09:21 | Pre Anesthesia Assessment ---
Date of Service July 10, 2018 Pre Sedation Assessment Vital Signs Temp Pulse Pulse Resp BP BP Pulse Ox 07/10/18 07:47 37.1 C 84 20 128/92 94 07/10/18 04:09 37.3 C 56 L 20 146/97 H 95 07/10/18 00:44 81 07/09/18 23:53 36.9 C 91 H 20 134/89 91 07/09/18 19:12 36.7 C 88 18 105/65 96 07/09/18 16:00 81 07/09/18 15:37 36.6 C 91 H 20 103/64 96 07/09/18 11:11 36.9 C 84 20 108/56 L 94 Cardiovascular RRR, no murmur, no edema Respiratory + diminished lung sounds (Clear) Pre-Sedation Airway Assessment Smoking Status: Never smoker Mallampati Class: III Procedure Planning Contraindications for Sedation: none Current Medications Reviewed: Yes Notes The planned sedation has been discussed with the patient. Informed Consent was obtained. I have identified the patient, determined the appropriateness of sedation and have assessed the patient immediately prior to the procedure. All medicine(s) and interventions are by my order.
[2018-07-10 10:38] LABS: iSTAT Creatinine 1.2 mg/dl (0.6-1.3); iSTAT Hemoglobin 11.9 g/dl (14.0-18.0); iSTAT Ionized Calcium 1.14 mmol/l (1.12-1.32); iSTAT Potassium 3.8 mEq/L (3.3-5.0)
--- NOTE | 2018-07-10 10:38 | Cardiac Catheterization ---
Cardiac Cath Procedure: Brief Procedure Date July 10, 2018 Pre-Procedure Diagnosis Pre-Procedure Diagnosis: Cardiomyopathy AUC Score AUC Score: 8 Post-Procedure Diagnosis Post-Procedure Diagnosis: Mild CAD Procedure(s) Performed Procedure(s) Performed: Coronary Angiography, Left Heart Cath and LV Angiography Spindle Repairer Ernesto Salter MD Cake Decorator(s) Nellie Hsu Estimated Blood Loss Estimated Blood Loss: <15 cc Medication(s) Medication(s): Fentanyl (12.5 mcg IV x2), Heparin (5000 units IV), Lidocaine 1% (Local infiltration access site), Nicardipine (250 mcg intra-arterial after sheath insertion), Nitroglycerin (200 mcg intra-arterial after sheath insertion) and Versed (1 mg IV) Preliminary Findings Right dominant coronary anatomy Large-caliber coronaries with minimal irregularities proximal LAD at most, otherwise normal vessels Dilated left ventricle with moderately severe LV dysfunction EF 30% Significantly elevated left end-diastolic pressure, 30 Recommendations Recommendations: Medical Therapy and/or Counseling Specimens Specimens: None Fluids (cc crystalloids) Fluids (cc crystalloids): 50 Anesthesia Start time 949 stop time 1019 Disposition PCU
[2018-07-10] MEDS: LISINOPRIL 2.5 MG TAB PO SCH (10:40)
[2018-07-10] MEDS: DOXYCYCLINE HYCLATE 100 MG CAP PO SCH ×2 (10:40→19:46)
[2018-07-10] MEDS: ASPIRIN 81 MG ECTAB PO SCH (10:41)
--- NOTE | 2018-07-10 10:43 | Cardiac Catheterization ---
Cardiac Cath Procedure Full Procedure Date July 10, 2018 Pre-Procedure Diagnosis Pre-Procedure Diagnosis: Cardiomyopathy AUC Score AUC Score: 8 Post-Procedure Diagnosis Post-Procedure Diagnosis: Mild CAD Procedure(s) Performed Procedure(s) Performed: Coronary Angiography, Left Heart Cath and LV Angiography Motion Picture Equipment Machinist Ernesto Salter MD Vice President Of Compliance(s) Nellie Hsu Estimated Blood Loss Estimated Blood Loss: <15 cc Medication(s) Medication(s): Fentanyl (12.5 mcg IV x2), Heparin (5000 units IV), Lidocaine 1% (Local infiltration access site), Nicardipine (250 mcg intra-arterial after sheath insertion), Nitroglycerin (200 mcg intra-arterial after sheath insertion) and Versed (1 mg IV) Summary of Findings Right dominant coronary anatomy Large-caliber coronaries with minimal irregularities proximal LAD at most, otherwise normal vessels Dilated left ventricle with moderately severe LV dysfunction EF 30% Significantly elevated left end-diastolic pressure, 30 Left main large in caliber trifurcating to give rise to left anterior descending, a large ramus intermedius, and left circumflex. No disease Left anterior descending: Type II in distribution giving rise to a large septal and diagonal branch in its proximal third and coarsening to terminate at the apex. There is mild luminal irregularities in the proximal third Left circumflex: Very large but nondominant. Gives rise to a large obtuse marginal to trivial posterior lateral branches and a large terminal posterior lateral branch which reaches to the apex. No disease Ramus intermedius: Large trifurcating vessel. No disease Right coronary artery: Dominant, large right ventricular branch supplying PDA distribution. Small true PDA and 2 trivial right-sided posterior ventricular branches. Posterior ventricular branch does supply AV toni artery Hemodynamics Rest Ao:: 117/91/104 Final Ao: 134/83/107 LV: 131/6/27 Recommendations Recommendations: Medical Therapy and/or Counseling Specimens Specimens: None Radiation Exposure (mGy) 1652 Contrast (mls) 90 Fluids (cc crystalloids) Fluids (cc crystalloids): 50 Anesthesia Start time 949 stop time 1019 Disposition [facility] Data: Merchant Tailor Cardiac Status Clinical evaluation leading to the procedure CAD Presenation: No Sxs, No angina Heart Failure: NYHA Class: CCS IV Cardiogenic Shock within 24 Hours: No Cardiac Arrest within 24 Hours: No Imaging Studies Past 6 Months: Yes (Diffuse cardiomyopathy) Stress Studies Past 6 Months: No Standard Exercise Test: No Stress Echocardiogram: No Stress Testing w/SPECT MPI: No Cardiac CTA: No Coronary Anatomy Dominant: Right Left Main (% Stenosis): Normal LAD (% Stenosis): Proximal (Mild irregularities, type II vessel) D1 (% Stenosis): Normal Circumflex (% Stenosis): Normal (Very large caliber) OM1 (% Stenosis): Normal L PL1 (% Stenosis): Normal L PL2 (% Stenosis): Normal (Very large caliber and length) RCA (% Stenosis): Normal R PDA (% Stenosis): Normal R PL1 (% Stenosis): Normal Ramus (% Stenosis): Normal (Large caliber trifurcating vessel) Left Ventricular Angiography EF (%): 2530 Mitral Regurgitation: None Diagnostic Physicians Name: Ernesto Salter MD Status: Urgent Closure Device Percutaneous Entry Location: Radial Closure Device: Radial Band Recommendations: Medical Therapy and/or Counseling
[2018-07-10] MEDS ORDERED: FUROSEMIDE 20 MG in SYRINGE 0 ML IV ONE (10:45)
[2018-07-10] MEDS: TRAMADOL HCL 50 MG TABLET PO PRN (11:05)
[2018-07-10] MEDS: ENOXAPARIN INJ 40 MG/0.4 ML SYR SQ SCH (17:32)
[2018-07-10] MEDS: FUROSEMIDE 20 MG in SYRINGE 0 ML IV SCH (17:32)
[2018-07-10] MEDS: METOPROLOL SUCC 25MG EXT REL TAB PO SCH ×2 (17:49→19:46)
[2018-07-10 18:28] LABS: Albumin 3.2 G/DL (3.8-4.8); Alpha 1 Globulin 0.3 G/DL (0.2-0.3); Alpha 2 Globulin 0.8 G/DL (0.5-0.9); Beta-1-Globulin 0.4 G/DL (0.4-0.6); Beta-2-Globulin 0.4 G/DL (0.2-0.5); Gamma Globulin 0.7 G/DL (0.8-1.7); Monoclonal Protein Band 1 DNR G/DL (NOT DETECTED); Monoclonal Protein Band 2 DNR G/DL (NOT DETECTED); Monoclonal Protein Band 3 DNR G/DL (NOT DETECTED); Total Protein 5.8 G/DL (6.2-8.3)
--- NOTE | 2018-07-10 19:33 | Hospitalist Progress Note ---
Date of Service July 10, 2018 Assessment & Plan (1) Cardiomyopathy: Newly dx cardiomyopathy ECHO showed reduced EF btw 35-40% Cardiology on board Continue Low dose ACEI Toprol increased to 25mg BID IV lasix given today Imflammatory marker pending Case discussed with cardiology and plan for cardiac cath in am Cardiac cath done today showed no significant vessel blockage Clinically improves Monitor BMP while on diuretic (2) Acute hypoxemic respiratory failure: possible related to cardiomyopathy vs pneumonia CXR showed mild asymmetric interstitial thickening and opacity within the right lung CTA showed no evidence for PE WBC elevated on admission On doxycycline BID Will repeat CXR in am Doubt about pneumonia Continue oxygen supplement (3) Anxiety: will add low dose of benzo prn while in the hospital (4) Elevated troponin: Due to demand ischemia from cardiomyopathy/fluid overload Troponin trending down EKG showed no ischemic changes Continue aspirin, toprol and statin Schedule for cardiac cath in am Denies any chest pain currently DVT px on Lovenox CODE STATUS full code Subjective Pt was seen and examined Lying in bed with no distress Pt had his stress test done this morning He said that his breathing is much better Denies any chest pain, palpitation, dizziness and SOB Physical Exam Vital Signs (Past 24 Hours): Last Vital Signs Temp 36.5 C 07/10/18 15:14 Pulse 71 07/10/18 15:14 Resp 20 07/10/18 15:14 BP 133/93 07/10/18 15:14 Pulse Ox 94 07/10/18 15:14 Physical Exam: General- No acute distress, obesity Head- atraumatic Eyes- PERRL, EOMI, ENT- oropharynx clear Neck- supple, no JVD Lungs- clear to auscultation Heart- regular rhythm; no murmur Abdomen- normal bowel sounds, soft, nontender Extremities- no calf tenderness, +edema Neuro- alert, oriented x 3; PERRL, EOMI; no facial palsy; no dysarthria Skin- warm & dry
--- NOTE | 2018-07-11 01:52 | Progress Note ---
DATE: 07/10/2018 The patient today underwent coronary angiography and LV angiography study demonstrating widely patent large caliber coronaries without obstructive disease, minimal irregularities proximal LAD only. LV is dilated with diffuse hypokinesis, EF 30% with elevated left end diastolic pressures. RECOMMENDATIONS: Toprol has been increased to 25 mg twice per day. We will continue lisinopril 2.5 mg with planned upward titration, ongoing diuresis has been ordered with 20 mg today and b.i.d. ordering. This dosage may need to be increased. We will begin with cautious dosing today given coronary angiography and dye administration. Ultimate goal is addition of spironolactone to regimen. Further upward titration of JEFFERY inhibitor. Formal sleep study as clinical course progresses.
[2018-07-11] MEDS: FUROSEMIDE 20 MG in SYRINGE 0 ML IV SCH ×2 (07:38→17:59)
[2018-07-11] MEDS: ENOXAPARIN INJ 40 MG/0.4 ML SYR SQ SCH (07:38)
[2018-07-11] MEDS: ASPIRIN 81 MG ECTAB PO SCH (07:39)
[2018-07-11] MEDS: LISINOPRIL 2.5 MG TAB PO SCH (07:39)
[2018-07-11] MEDS: METOPROLOL SUCC 25MG EXT REL TAB PO SCH ×2 (07:39→20:41)
[2018-07-11] MEDS: DOXYCYCLINE HYCLATE 100 MG CAP PO SCH ×2 (07:40→20:41)
--- NOTE | 2018-07-11 08:41 | XRay Report ---
SINGLE VIEW CHEST CLINICAL HISTORY: Atypical chest pain. FINDINGS: 2 AP, portable, upright chest radiographs are compared to chest x-ray and chest CT dated . The examination is degraded by portable technique and patient rotation. The heart is enlarg ed. The pulmonary vasculature is noncongested. Emphysema and chronic interstitial thickening are sascha lar to previous. There is bibasilar atelectasis. No airspace consolidation or large pleural effusion is identified. No pneumothorax is seen. The skeletal structures are osteopenic. The bony thorax is gr ossly intact. IMPRESSION: Cardiomegaly and emphysema with no acute cardiopulmonary abnormality. No significant lara ge from 07/08/2018. Electronically signed by: Han Page M.D. 07/11/2018 8:39 AM
[2018-07-11 08:51] LABS: BUN Creatinine Ratio 19.5 (10-20); Calcium 8.7 mg/dl (8.5-10.1); Est GFR (African American) 71.8; Est GFR (Non-African American) 61.9; Potassium 3.8 mmol/L (3.5-5.1)
--- NOTE | 2018-07-11 12:09 | Cardiology Progress Note ---
Date of Service July 11, 2018 Assessment & Plan (1) Cardiomyopathy: Patient with newly diagnosed diffuse cardiomyopathy with moderate left dysfunction, right greater than left heart failure manifesting with abdominal bloating edema cardiac cath without obstructive CAD Patient has tolerated addition of Toprol, lisinopril, manifested good diuresis continues to diurese well will add low dose spironolactone to aid in diuresis along with aldosterone antagonism cont strict I/O's renal function remaining stable (2) Acute hypoxemic respiratory failure: Subjective Pt seen and examined, at bedside. States that he's feeling better today. Wa s able to ambulate without significant dyspnea. His LE swelling and abdominal distention are also improving. Tele reviewed: sinus rhythm without arrhythmia or significant ectopy. Review of Systems All systems reviewed & are unremarkable except as noted in HPI & below Physical Exam Vital Signs (Past 24 Hours): Last Vital Signs Temp 37.2 C 07/11/18 11:32 Pulse 82 07/11/18 11:32 Resp 18 07/11/18 11:32 BP 130/77 07/11/18 11:32 Pulse Ox 94 07/11/18 11:32 Physical Exam: General: Awake, alert and oriented x 3. No acute distress. HEENT: Normocephalic, atraumatic. Pupils equal, round and reactive to light and accommodation. Extraocular muscles are intact. Anicteric sclera. Moist mucous membranes. Neck: No JVD. No bruit. Cardiovascular: Regular. Positive S-4. Normal S-1 and S-2. No S-3. No murmurs or rubs. Pulmonary: Clear to auscultation B/L. No rales, rhonchi or wheezing Abdomen: Bowel sounds x 4, soft. No rebound, guarding or tenderness. No organomegaly. Extremities: No clubbing, cyanosis. +1 B/L LE pitting edema. +2 pedal pulses bilaterally. Skin: Warm and dry.
[2018-07-11] MEDS: TRAMADOL HCL 50 MG TABLET PO PRN (15:38)
--- NOTE | 2018-07-11 18:08 | Hospitalist Progress Note ---
Date of Service July 11, 2018 Assessment & Plan (1) Cardiomyopathy: Newly dx cardiomyopathy ECHO showed reduced EF btw 35-40% Cardiology on board Continue Low dose ACEI Toprol increased to 25mg BID Continue IV lasix Plan to change to oral lasix in am Imflammatory marker pending Cardiac cath done showed no significant vessel blockage Clinically improves Monitor BMP while on diuretic (2) Acute hypoxemic respiratory failure: possible related to cardiomyopathy vs pneumonia CXR showed mild asymmetric interstitial thickening and opacity within the right lung CTA showed no evidence for PE WBC elevated on admission On doxycycline BID Will repeat CXR in am Doubt about pneumonia Continue oxygen supplement (3) Anxiety: Continue low dose of benzo prn while in the hospital (4) Elevated troponin: Due to demand ischemia from cardiomyopathy/fluid overload Troponin trending down EKG showed no ischemic changes Continue aspirin, toprol and statin Denies any chest pain currently S/p cardiac with no significant vessels dx DVT px on Lovenox CODE STATUS full code Subjective Pt was seen and examined Lying in bed with no distress He said that his breathing is much better Denies any symptoms Physical Exam Vital Signs (Past 24 Hours): Last Vital Signs Temp 37.4 C 07/11/18 15:28 Pulse 83 07/11/18 15:28 Resp 18 07/11/18 15:28 BP 118/66 07/11/18 15:28 Pulse Ox 95 07/11/18 15:28 Physical Exam: General- No acute distress, obesity Head- atraumatic Eyes- PERRL, EOMI, ENT- oropharynx clear Neck- supple, no JVD Lungs- clear to auscultation Heart- regular rhythm; no murmur Abdomen- normal bowel sounds, soft, nontender Extremities- no calf tenderness, +edema Neuro- alert, oriented x 3; PERRL, EOMI; no facial palsy; no dysarthria Skin- warm & dry
[2018-07-12] MEDS: ENOXAPARIN INJ 40 MG/0.4 ML SYR SQ SCH (08:04)
[2018-07-12] MEDS: METOPROLOL SUCC 25MG EXT REL TAB PO SCH ×2 (08:04→20:11)
[2018-07-12] MEDS: LISINOPRIL 2.5 MG TAB PO SCH (08:05)
[2018-07-12] MEDS: DOXYCYCLINE HYCLATE 100 MG CAP PO SCH ×2 (08:05→20:11)
[2018-07-12] MEDS: ASPIRIN 81 MG ECTAB PO SCH (08:05)
--- NOTE | 2018-07-12 10:06 | Cardiology Progress Note ---
Date of Service July 12, 2018 Assessment & Plan (1) Cardiomyopathy: Patient with newly diagnosed diffuse cardiomyopathy with moderate left dysfunction, right greater than left heart failure manifesting with abdominal bloating edema cardiac cath without obstructive CAD Patient has tolerated addition of Toprol, lisinopril, manifested good diuresis continues to diurese well, additional 2.5L in last 24 hours will add low dose spironolactone to aid in diuresis along with aldosterone antagonism cont strict I/O's renal function remaining stable (2) Acute hypoxemic respiratory failure: Subjective Pt seen and examined, states that he's doing well. LE edema and abdominal distention improving. No dyspnea with ambulation in hallways. Denies cp, sob, palpitations, lightheadedness. Tele reviewed: sinus rhythm without arrhythmia. Review of Systems All systems reviewed & are unremarkable except as noted in HPI & below Physical Exam Vital Signs (Past 24 Hours): Last Vital Signs Temp 36.8 C 07/12/18 08:03 Pulse 85 07/12/18 08:03 Resp 18 07/12/18 08:03 BP 149/97 H 07/12/18 08:03 Pulse Ox 95 07/12/18 08:03 Physical Exam: General: Awake, alert and oriented x 3. No acute distress. HEENT: Normocephalic, atraumatic. Pupils equal, round and reactive to light and accommodation. Extraocular muscles are intact. Anicteric sclera. Moist mucous membranes. Neck: No JVD. No bruit. Cardiovascular: Regular. Positive S-4. Normal S-1 and S-2. No S-3. No murmurs or rubs. Pulmonary: Clear to auscultation B/L. No rales, rhonchi or wheezing Abdomen: Bowel sounds x 4, soft. No rebound, guarding or tenderness. No organomegaly. Extremities: No clubbing, cyanosis. +1 B/L LE pitting edema. +2 pedal pulses bilaterally. Skin: Warm and dry.
[2018-07-12] MEDS: FUROSEMIDE 20 MG in SYRINGE 0 ML IV SCH ×2 (10:11→18:16)
[2018-07-12] MEDS ORDERED: ACETAMINOPHEN 325 MG TAB PO ONE (10:40)
[2018-07-12 10:51] LABS: Calcium 8.7 mg/dl (8.5-10.1); Creatinine Clr Calc Pharmacy 91.2 ml/min; Est GFR (African American) 67.8; Est GFR (Non-African American) 58.5; Potassium 3.7 mmol/L (3.5-5.1)
[2018-07-12] MEDS ORDERED: TRIAMCINOLONE ACET 0.1% CR 80 GM TUBE EXT PRN (10:51)
[2018-07-12] MEDS: SPIRONOLACTONE 25 MG TAB PO SCH (11:03)
[2018-07-12] MEDS ORDERED: predniSONE 20 MG TAB PO STA (11:26)
[2018-07-12] MEDS ORDERED: metHOTREXate sodium 2.5 MG TAB PO ONE ×2 (12:00→16:00)
--- NOTE | 2018-07-12 16:49 | Hospitalist Progress Note ---
Date of Service July 12, 2018 Assessment & Plan (1) Cardiomyopathy: Newly dx cardiomyopathy Pro BNP on admission 16K ECHO showed reduced EF btw 35-40% Cardiology on board Continue Low dose ACEI continue Toprol 25mg BID Continue IV lasix BID Low dose spironolactone adding today Plan to change to oral lasix in am Cardiac cath done showed no significant vessel blockage Clinically improves Monitor BMP while on diuretic (2) Acute hypoxemic respiratory failure: possible related to cardiomyopathy vs pneumonia CXR showed mild asymmetric interstitial thickening and opacity within the right lung CTA showed no evidence for PE WBC elevated on admission On doxycycline BID Will repeat CXR in am Doubt about pneumonia Continue oxygen supplement (3) Anxiety: Continue low dose of benzo prn while in the hospital (4) Elevated troponin: Due to demand ischemia from cardiomyopathy/fluid overload Troponin trending down EKG showed no ischemic changes Continue aspirin, toprol and statin Denies any chest pain currently S/p cardiac with no significant vessels dx RA Complaint of joint tenderness Methotrexate given today Prednisone 20mg x1 DVT px on Lovenox CODE STATUS full code Disposition Discharge once stable by cardio Subjective Pt was seen and examined examined Sitting in bed with no distress Pt said that he feels fine He said that he is starting to have joint achiness Pt said that he is due to get his methotrexate today He said that his breathing feels better Denies any chest pain, palpitation dizziness and SOB Physical Exam Vital Signs (Past 24 Hours): Last Vital Signs Temp 36.7 C 07/12/18 15:38 Pulse 73 07/12/18 15:38 Resp 18 07/12/18 15:38 BP 111/55 L 07/12/18 15:38 Pulse Ox 94 07/12/18 15:38 Physical Exam: General- No acute distress, obesity Head- atraumatic Eyes- PERRL, EOMI, ENT- oropharynx clear Neck- supple, no JVD Lungs- clear to auscultation Heart- regular rhythm; no murmur Abdomen- normal bowel sounds, soft, nontender Extremities- no calf tenderness, +edema Neuro- alert, oriented x 3; PERRL, EOMI; no facial palsy; no dysarthria Skin- warm & dry
[2018-07-12] MEDS ORDERED: ACETAMINOPHEN 325 MG TAB PO PRN (19:59)
[2018-07-12] MEDS: TRAMADOL HCL 50 MG TABLET PO PRN (20:10)
[2018-07-13] MEDS: FUROSEMIDE 20 MG in SYRINGE 0 ML IV SCH ×2 (09:42→18:02)
[2018-07-13] MEDS: SPIRONOLACTONE 25 MG TAB PO SCH (09:42)
[2018-07-13] MEDS: DOXYCYCLINE HYCLATE 100 MG CAP PO SCH ×2 (09:42→20:17)
[2018-07-13] MEDS: ASPIRIN 81 MG ECTAB PO SCH (09:42)
[2018-07-13] MEDS: ENOXAPARIN INJ 40 MG/0.4 ML SYR SQ SCH (09:43)
[2018-07-13] MEDS: METOPROLOL SUCC 25MG EXT REL TAB PO SCH ×2 (09:43→20:17)
[2018-07-13 10:35] LABS: BUN Creatinine Ratio 17.3 (10-20); Calcium 8.8 mg/dl (8.5-10.1); Creatinine Clr Calc Pharmacy 86.7 ml/min; Est GFR (African American) 64.2; Est GFR (Non-African American) 55.4; Potassium 3.5 mmol/L (3.5-5.1)
--- NOTE | 2018-07-13 11:09 | Cardiology Progress Note ---
Date of Service July 13, 2018 Assessment & Plan (1) Cardiomyopathy: Patient with newly diagnosed diffuse cardiomyopathy with moderate left dysfunction, right greater than left heart failure cardiac cath without obstructive CAD Patient has tolerated addition of Toprol, lisinopril, manifested good diuresis continues to diurese well, additional 2.5L in last 24 hours will tentatively plan to cont IV lasix today and transition to po in AM cont strict I/O's renal function remaining stable (2) Acute hypoxemic respiratory failure: Subjective Pt seen and examined, states that he's doing great. LE edema and abdominal distention improving. No dyspnea with ambulation in hallways. Denies cp, sob, palpitations, lightheadedness. Tele reviewed: sinus rhythm without arrhythmia. Physical Exam Vital Signs (Past 24 Hours): Last Vital Signs Temp 36.7 C 07/13/18 08:25 Pulse 80 07/13/18 08:25 Resp 18 07/13/18 08:25 BP 150/79 H 07/13/18 08:25 Pulse Ox 97 07/13/18 08:25 Physical Exam: General: Awake, alert and oriented x 3. No acute distress. HEENT: Normocephalic, atraumatic. Pupils equal, round and reactive to light and accommodation. Extraocular muscles are intact. Anicteric sclera. Moist mucous membranes. Neck: No JVD. No bruit. Cardiovascular: Regular. Positive S-4. Normal S-1 and S-2. No S-3. No murmurs or rubs. Pulmonary: Clear to auscultation B/L. No rales, rhonchi or wheezing Abdomen: Bowel sounds x 4, soft. No rebound, guarding or tenderness. No organomegaly. Extremities: No clubbing, cyanosis or edema. +2 pedal pulses bilaterally. Skin: Warm and dry.
[2018-07-13] MEDS: LISINOPRIL 10 MG TAB PO SCH (11:28)
[2018-07-13] MEDS ORDERED: predniSONE 20 MG TAB PO STA (11:29)
--- NOTE | 2018-07-13 17:07 | Hospitalist Progress Note ---
Date of Service July 13, 2018 Assessment & Plan (1) Cardiomyopathy: Newly dx cardiomyopathy Pro BNP on admission 16K ECHO showed reduced EF btw 35-40% Cardiology on board Continue Low dose ACEI continue Toprol 25mg BID Continue IV lasix BID Continue spironolactone Plan to change to oral lasix in am Cardiac cath done showed no significant vessel blockage Clinically improves Monitor BMP while on diuretic Diuresis about 14L and lost about 25lbs Clinically improves (2) Acute hypoxemic respiratory failure: possible related to cardiomyopathy vs pneumonia CXR showed mild asymmetric interstitial thickening and opacity within the right lung CTA showed no evidence for PE WBC elevated on admission on doxycycline, will complete 7 days course tomorrow Continue oxygen supplement Will d/c doxycycline tomorrow (3) Anxiety: Continue low dose of benzo prn while in the hospital (4) Elevated troponin: Due to demand ischemia from cardiomyopathy/fluid overload Troponin trending down EKG showed no ischemic changes Continue aspirin, toprol and statin Denies any chest pain currently S/p cardiac with no significant vessels dx RA Complaint of joint tenderness Methotrexate given today Prednisone 20mg x1 given today DVT px on Lovenox CODE STATUS full code Disposition Discharge once stable by cardio Subjective Pt was see and examined Sitting at the edge of the bed with no distress Pt said that he feels much better he said that his breathing is at baseline now Denies any chest pain, palpitation, dizziness, orthopnea and SOB Physical Exam Vital Signs (Past 24 Hours): Last Vital Signs Temp 36.8 C 07/13/18 15:56 Pulse 76 07/13/18 15:56 Resp 18 07/13/18 15:56 BP 139/84 07/13/18 15:56 Pulse Ox 92 07/13/18 15:56 Physical Exam: General- No acute distress, obesity Head- atraumatic Eyes- PERRL, EOMI, ENT- oropharynx clear Neck- supple, no JVD Lungs- clear to auscultation Heart- regular rhythm; no murmur Abdomen- normal bowel sounds, soft, nontender Extremities- no calf tenderness, +edema Neuro- alert, oriented x 3; PERRL, EOMI; no facial palsy; no dysarthria Skin- warm & dry
[2018-07-14 08:23] LABS: BUN Creatinine Ratio 21.3 (10-20); Calcium 8.8 mg/dl (8.5-10.1); Creatinine Clr Calc Pharmacy 78.6 ml/min; Est GFR (Non-African American) 49.2; Magnesium 2.1 mg/dl (1.8-2.4); Potassium 3.4 mmol/L (3.5-5.1)
[2018-07-14] MEDS: DOXYCYCLINE HYCLATE 100 MG CAP PO SCH ×2 (09:21→20:48)
[2018-07-14] MEDS: METOPROLOL SUCC 25MG EXT REL TAB PO SCH ×2 (09:21→20:48)
[2018-07-14] MEDS: ENOXAPARIN INJ 40 MG/0.4 ML SYR SQ SCH (09:22)
[2018-07-14] MEDS: ASPIRIN 81 MG ECTAB PO SCH (09:22)
[2018-07-14] MEDS: LISINOPRIL 10 MG TAB PO SCH (09:22)
[2018-07-14] MEDS: SPIRONOLACTONE 25 MG TAB PO SCH (09:22)
--- NOTE | 2018-07-14 10:50 | Hospitalist Progress Note ---
Date of Service July 14, 2018 Assessment & Plan (1) Cardiomyopathy: Newly dx cardiomyopathy Pro BNP on admission 16K ECHO showed reduced EF btw 35-40% Cardiology on board Continue Low dose ACEI continue Toprol 25mg BID Continue IV lasix BID Continue spironolactone Plan to change to oral lasix today by cardiology Cardiac cath done showed no significant vessel blockage Clinically improves Monitor BMP while on diuretic Diuresis about 16L and lost about 25lbs Clinically improves (2) Acute hypoxemic respiratory failure: possible related to cardiomyopathy vs pneumonia CXR showed mild asymmetric interstitial thickening and opacity within the right lung CTA showed no evidence for PE WBC elevated on admission on doxycycline, will complete 7 days course tomorrow Continue oxygen supplement Complete course of doxycycline today (3) Anxiety: Continue low dose of benzo prn while in the hospital (4) Elevated troponin: Due to demand ischemia from cardiomyopathy/fluid overload Troponin trending down EKG showed no ischemic changes Continue aspirin, toprol and statin Denies any chest pain currently S/p cardiac with no significant vessels dx RA Complaint of joint tenderness Methotrexate given today Prednisone 10mg x1 given today DVT px on Lovenox CODE STATUS full code Disposition Discharge once stable by cardio Subjective Pt was seen and examined Lying in bed with no distress Pt said that he feels fine denies any complaint Physical Exam Vital Signs (Past 24 Hours): Last Vital Signs Temp 36.7 C 07/14/18 08:25 Pulse 82 07/14/18 08:25 Resp 19 07/14/18 08:25 BP 147/83 H 07/14/18 08:25 Pulse Ox 96 07/14/18 08:25 Physical Exam: General- No acute distress, obesity Head- atraumatic Eyes- PERRL, EOMI, ENT- oropharynx clear Neck- supple, no JVD Lungs- clear to auscultation Heart- regular rhythm; no murmur Abdomen- normal bowel sounds, soft, nontender Extremities- no calf tenderness, +edema Neuro- alert, oriented x 3; PERRL, EOMI; no facial palsy; no dysarthria Skin- warm & dry
[2018-07-14] MEDS ORDERED: predniSONE 10 MG TABLET PO ONE (10:55)
[2018-07-14] MEDS ORDERED: FUROSEMIDE 40 MG TAB PO SCH (14:15)
[2018-07-14] MEDS: POTASSIUM CHLORIDE 20 MEQ TABCR PO SCH (14:58)
--- NOTE | 2018-07-14 15:25 | Cardiology Progress Note ---
Date of Service July 14, 2018 Assessment & Plan (1) Cardiomyopathy: Patient with newly diagnosed diffuse cardiomyopathy with moderate left dysfunction, right greater than left heart failure cardiac cath without obstructive CAD Patient has tolerated addition of Toprol, lisinopril, manifested good diuresis renal output trending down does not examine as volume overloaded will change lasix to po now would d/c home with lasix 40mg po daily in AM with additional PM dose PRN for signs of volume overload signs of volume overload reviewed with patient and will also give KCl 20meq my office will call to schedule CHF clinic f/u in 1 week. ok to d/c to home (2) Acute hypoxemic respiratory failure: Subjective Pt seen and examined with at bedside, voiced his appreciation, stating that he hasn't felt this good in over a year. Denies cp, sob, palpitations, lightheadedness or dizziness. LE edema back to baseline. Tele reviewed: sinus rhythm without arrhythmia or significant ectopy. Review of Systems All systems reviewed & are unremarkable except as noted in HPI & below Physical Exam Vital Signs (Past 24 Hours): Last Vital Signs Temp 36.6 C 07/14/18 12:25 Pulse 68 07/14/18 12:25 Resp 19 07/14/18 12:25 BP 143/80 H 07/14/18 12:25 Pulse Ox 97 07/14/18 12:25 Physical Exam: General: Awake, alert and oriented x 3. No acute distress. HEENT: Normocephalic, atraumatic. Pupils equal, round and reactive to light and accommodation. Extraocular muscles are intact. Anicteric sclera. Moist mucous membranes. Neck: No JVD. No bruit. Cardiovascular: Regular. Positive S-4. Normal S-1 and S-2. No S-3. No murmurs or rubs. Pulmonary: Clear to auscultation B/L. No rales, rhonchi or wheezing Abdomen: Bowel sounds x 4, soft. No rebound, guarding or tenderness. No organomegaly. Extremities: No clubbing, cyanosis or edema. +2 pedal pulses bilaterally. Skin: Warm and dry.
[2018-07-14 17:05] LABS: Potassium 3.9 mmol/L (3.5-5.1)
[2018-07-14 17:06] LABS: Magnesium 2.1 mg/dl (1.8-2.4)
[2018-07-14] MEDS ORDERED: METOPROLOL TARTRATE 1 MG/ML VIAL IV STA ×2 (17:31→23:15)
[2018-07-15] MEDS ORDERED: METOPROLOL TARTRATE 1 MG/ML VIAL IV STA (00:32)
[2018-07-15] MEDS ORDERED: dilTIAZem HCl 5 MG/ML 5 ML VIAL IV STA (02:01)
[2018-07-15] MEDS ORDERED: dilTIAZem HCl 125 MG in DEXTROSE 5% 100 ML IV SCH (02:15)
[2018-07-15 02:49] LABS: Calcium 8.2 mg/dl (8.5-10.1); Creatinine Clr Calc Pharmacy 75.1 ml/min; Est GFR (Non-African American) 46.6; Potassium 4.1 mmol/L (3.5-5.1)
[2018-07-15 02:58] LABS: Troponin I 0.057 ng/ml (0-0.045)
[2018-07-15 03:09] LABS: Partial Thromboplastin Time 27.6 Seconds (21.0-31.0)
[2018-07-15] MEDS: POTASSIUM CHLORIDE 20 MEQ TABCR PO SCH (08:44)
[2018-07-15] MEDS: LISINOPRIL 10 MG TAB PO SCH (08:44)
[2018-07-15] MEDS: ASPIRIN 81 MG ECTAB PO SCH (08:44)
[2018-07-15] MEDS: METOPROLOL SUCC 25MG EXT REL TAB PO SCH (08:45)
--- NOTE | 2018-07-15 08:55 | Cardiology Progress Note ---
Date of Service July 15, 2018 Assessment & Plan (1) Cardiomyopathy: Patient with newly diagnosed diffuse cardiomyopathy with moderate left dysfunction, right greater than left heart failure cardiac cath without obstructive CAD Patient has tolerated addition of Toprol, lisinopril, manifested good diuresis renal output trending down does not examine as volume overloaded will change lasix to po now would d/c home with lasix 40mg po daily in AM with additional PM dose PRN for signs of volume overload signs of volume overload reviewed with patient and will also give KCl 20meq my office will call to schedule CHF clinic f/u in 1 week. ok to d/c to home (2) Acute hypoxemic respiratory failure: (3) Atrial fibrillation with rapid ventricular response: new issue completely asymptomatic broke with IV metoprolol would cont current po dose of metoprolol will start Eliquis 5mg po bid f/u as scheduled will likely perform outpatient tele monitor and d/c Eliquis should he become afib free ok to d/c home today Subjective Pt seen and examined, discharge delayed due to pt going into afib with [facility] last PM. Pt completely asymptomatic and states that he continues to feel great. Tele reviewed: afib with [facility] last pm, currently sinus Review of Systems All systems reviewed & are unremarkable except as noted in HPI & below Physical Exam Vital Signs (Past 24 Hours): Last Vital Signs Temp 36.6 C 07/15/18 07:06 Pulse 81 07/15/18 08:43 Resp 18 07/15/18 07:06 BP 112/74 07/15/18 08:43 Pulse Ox 94 07/15/18 07:06 Physical Exam: General: Awake, alert and oriented x 3. No acute distress. HEENT: Normocephalic, atraumatic. Pupils equal, round and reactive to light and accommodation. Extraocular muscles are intact. Anicteric sclera. Moist mucous membranes. Neck: No JVD. No bruit. Cardiovascular: Regular. Positive S-4. Normal S-1 and S-2. No S-3. No murmurs or rubs. Pulmonary: Clear to auscultation B/L. No rales, rhonchi or wheezing Abdomen: Bowel sounds x 4, soft. No rebound, guarding or tenderness. No organomegaly. Extremities: No clubbing, cyanosis or edema. +2 pedal pulses bilaterally. Skin: Warm and dry.
[2018-07-15] MEDS ORDERED: Heparin IV Low Dose *NO* Bolus IV SCH (09:00)
[2018-07-15] MEDS ORDERED: FUROSEMIDE 40 MG TAB PO SCH (09:00)
[2018-07-15] MEDS ORDERED: SPIRONOLACTONE 25 MG TAB PO SCH (09:00)
[2018-07-15] MEDS ORDERED: APIXABAN 5 MG TABLET PO SCH (09:00)
--- NOTE | 2018-07-15 12:40 | Hospitalist Progress Note ---
Date of Service July 15, 2018 Assessment & Plan (1) Cardiomyopathy: Newly dx cardiomyopathy Pro BNP on admission 16K ECHO showed reduced EF btw 35-40% Cardiology on board Continue Low dose ACEI continue Toprol 25mg BID Continue IV lasix BID Continue spironolactone Plan to change to oral lasix today by cardiology Cardiac cath done showed no significant vessel blockage Clinically improves Monitor BMP while on diuretic Diuresis about 17.5L and lost about 25lbs Clinically improves Case discussed with cardiology and ok from cardiology standpoint to discharge home Will discharge on metoprolol 25mg BID, spironolactone 12.5 mg and lasix 40mg daily Additional PM dose lasix PRN for signs of volume overload signs of volume overload reviewed with patient and Will check BMP next week Follow up with cardiology in 1 week (2) Atrial fibrillation with rapid ventricular response: Converted back to NSR after receiving IV metoprolol Rate control with metoprolol starting on eliquis BID Follow up with cardiology (3) Acute hypoxemic respiratory failure: possible related to cardiomyopathy vs pneumonia CXR showed mild asymmetric interstitial thickening and opacity within the right lung CTA showed no evidence for PE WBC elevated on admission Completed course of doxycycline saturated well on RA Clinically stable (4) Anxiety: Continue low dose of benzo prn while in the hospital Will need to follow up with PCP and can start on SSRI if symptoms of anxity do not improve (5) Elevated troponin: Due to demand ischemia from cardiomyopathy/fluid overload Troponin trending down EKG showed no ischemic changes Continue aspirin, toprol and statin Denies any chest pain currently S/p cardiac with no significant vessels dx RA Complaint of joint tenderness Methotrexate given today Advised pt to avoid any NSAIDs (Motrin, Aleve, Advil, Naproxen, Ibuprofen,..) due to increase risk of bleeding Stable DVT px D/C Lovenox On Eliquis CODE STATUS full code Disposition Discharge home today Subjective Pt was seen and examined Sitting in bed with no distress Pt said that he feels fine Yesterday he went to Afib with [facility] Afib broke after received 5mg IV toprol Pt was asymptomatic during the episodes of Afib She said that she slept well last night after received ativan He said that his breathing feels great He has been walking in the hallway with no distress Denies any chest pain, palpitation, dizziness and SOB Physical Exam Vital Signs (Past 24 Hours): Last Vital Signs Temp 36.6 C 07/15/18 12:00 Pulse 73 07/15/18 12:00 Resp 18 07/15/18 12:00 BP 104/68 07/15/18 12:00 Pulse Ox 96 07/15/18 12:00 Physical Exam: General- No acute distress, obesity Head- atraumatic Eyes- PERRL, EOMI, ENT- oropharynx clear Neck- supple, no JVD Lungs- clear to auscultation Heart- regular rhythm; no murmur Abdomen- normal bowel sounds, soft, nontender Extremities- no calf tenderness, +edema Neuro- alert, oriented x 3; PERRL, EOMI; no facial palsy; no dysarthria Skin- warm & dry
--- NOTE | 2018-07-15 23:22 | Discharge Summary ---
Date of Service July 15, 2018 Admission HPI Per Admitting Provider History obtained from patient, family, and records. Medical history significant for rheumatoid arthritis, chronic LE lymphedema, chronic anemia enclosing (baseline hemoglobin 13), past tobacco abuse. 1 month history of increasing shortness of breath especially on exertion, fluid retention, abdominal distention, and increased bilateral leg swelling. Patient unable to lie flat on the bed when sleeping for years now. No unusual cough symptoms. Patient noted by to be snoring during sleep and having episodes of breathing cessation during sleep which would rouse patient during sleep. No consultations done. No previous sleep studies. Yesterday patient noted transient achy substernal discomfort with worsening shortness of breath symptoms. Increased leg redness noted in the last few days. At the ER, patient noted to be hypoxemic O2 sats 80s. Patient given Ceftriaxone and azithromycin at the ER for pneumonitis on CT. 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 Admission Exam Per Admitting Provider GENERAL: Comfortable, no respiratory distress, obese SKIN: Pallor , warm HEENT: Partial alopecia, pale palpebral conjunctivae, no ptosis, dry buccal mucosa NECK : Supple, short, no tenderness CHEST : Decreased breath sounds , no tenderness HEART : RRR, no obvious murmurs ABDOMEN: Some distention, nontender EXTREMITIES : meseret LE swelling/induration with focal contusions/abrasions, no LE tenderness, no other conspicuous deformities noted NEUROLOGIC : Coherent, no facial asymmetry, no other gross focality Principal Diagnosis Cardiomyopathy Atrial fibrillation with RVR Acute hypoxemic respiratory failure: Anxiety Discharge Exam General- No acute distress, obesity Head- atraumatic Eyes- PERRL, EOMI, ENT- oropharynx clear Neck- supple, no JVD Lungs- clear to auscultation Heart- regular rhythm; no murmur Abdomen- normal bowel sounds, soft, nontender Extremities- no calf tenderness, +edema Neuro- alert, oriented x 3; PERRL, EOMI; no facial palsy; no dysarthria Skin- warm & dry Discharge Data Allergies Allergy/AdvReac Type Severity Reaction Status Date / Time No Known Allergies Allergy Unverified 07/08/18 05:52 Consultations 07/08/18 06:24 ED Decision to Admit Stat 07/08/18 08:26 Consult Cardiology Routine Procedures Performed Operation Date: 07/10/18 09:30 Actual Procedures p Cath, Left with Cors and Vent - Ernesto Salter MD s Cineradiography w/Routine Exam - Ernesto Salter MD Ordered Studies 07/08/18 05:18 CT angio chest PE protocol Urgent 07/08/18 08:26 US abdomen limited Urgent US venous doppler LE BI Urgent 07/10/18 07:01 CL Cath Imgs for PACS use only Routine SINGLE VIEW CHEST CLINICAL HISTORY: Atypical chest pain. FINDINGS: 2 AP, portable, upright chest radiographs are compared to chest x-ray and chest CT dated 07/08/2018. The examination is degraded by portable technique and patient rotation. The heart is enlarged. The pulmonary vasculature is noncongested. Emphysema and chronic interstitial thickening are similar to previous. There is bibasilar atelectasis. No airspace consolidation or large pleural effusion is identified. No pneumothorax is seen. The skeletal structures are osteopenic. The bony thorax is grossly intact. IMPRESSION: Cardiomegaly and emphysema with no acute cardiopulmonary abnormality. No significant change from 07/08/2018. Electronically signed by: Han Page M.D. 07/11/2018 8:39 AM Dictated: 07/11/18 0837 Transcribed: 07/11/18 0837 US venous doppler LE BI CLINICAL HISTORY: leg swelling COMPARISON STUDY: 11/13/2017 FINDINGS: Real-time and color flow Doppler imaging were performed. Flow was seen within the femoral, popliteal and calf veins with no intraluminal thrombus demonstrated. The saphenous vein is patent. IMPRESSION: No evidence of lower extremity DVT. Electronically signed by: Berhane Harrington M.D. 07/08/2018 10:35 AM Dictated: 07/08/18 1035 Transcribed: 07/08/18 1035 US abdomen limited CLINICAL HISTORY: Abdominal distention COMPARISON STUDY: No previous studies for comparison. FINDINGS: A limited abdominal ultrasound was performed to evaluate for ascites. A four-quadrant survey revealed no ascites. IMPRESSION: No ascites identified. Electronically signed by: Berhane Harrington M.D. 07/08/2018 10:37 AM Dictated: 07/08/18 1036 Transcribed: 07/08/[address] ANGIOGRAM OF THE CHEST CLINICAL HISTORY: Atypical chest pain. Dyspnea. COMPARISON STUDY: Chest x-ray dated 07/08/2018. TECHNIQUE: Following the IV administration of 119 cc of Optiray 320, CT angiogram of the chest was performed from the upper abdomen to the thoracic inlet utilizing the pulmonary embolus protocol. Images are reviewed in the axial, sagittal, and coronal planes. 3-D MIPS images are created and assessed. IV contrast was administered without complication. A dose lowering technique was utilized adhering to the principles of ALARA. CT DOSE: 842.63 mGy.cm FINDINGS: Thyroid: Atrophic and heterogeneous. Thoracic aorta: The thoracic aorta is normal in caliber and demonstrates standard 3-vessel arch anatomy. No dissection is seen. Pulmonary vasculature: The pulmonary trunk is normal in caliber. There are no filling defects identified in main, lobar, or segmental pulmonary branches to suggest pulmonary embolus. Heart: The heart is normal in size and without pericardial effusion. Lungs and pleural spaces: Evaluation of lung parenchyma is modestly degraded by motion artifact. Advanced emphysema is noted. There is bibasilar scarring/atelectasis. No airspace consolidation is seen typical for pneumonia. Trace pleural fluid is noted at the right lung base. A punctate calcified granuloma is seen at the right lung base. Mediastinum: There are numerous mildly enlarged mediastinal lymph nodes. Right peritracheal nodes measure up to 10 mm in short axis. AP window nodes measure up to 9 mm short axis. Zohreh: Mildly enlarged hilar nodes measure up to 16 mm in short axis. Axillae: There is no axillary lymphadenopathy. Upper abdomen: The liver is cirrhotic in morphology and heterogeneous in attenuation. There is nodularity of the hepatic surface contour. There is a small hiatal hernia. The spleen is normal in size. Skeletal structures: The skeletal structures are osteopenic. Degenerative change is noted in the shoulders and thoracic spine. No lytic or blastic bony lesions are seen. IMPRESSION: 1. There is no evidence of pulmonary embolus in the main, lobar, or segmental pulmonary arteries. 2. Cardiomegaly and emphysema. 3. Cirrhotic liver morphology. 4. Trace pleural fluid is seen in the right lung base. 5. Mildly enlarged mediastinal and hilar lymph nodes are nonspecific and may be on a reactive basis. Clinical correlation will be required. 6. Additional findings as above. Electronically signed by: Han Page M.D. 07/08/2018 7:34 AM Dictated: 07/08/18723 Transcribed: 07/08/18723 XR chest 1V portable CLINICAL HISTORY: Chest pain. Shortness of breath. COMPARISON STUDY: No previous studies for comparison. FINDINGS: Moderate cardiomegaly is noted. There is no pneumothorax or pleural effusion. There is mild asymmetric interstitial thickening and opacity within the right lower lung. Minimal left basilar opacity favors atelectasis. IMPRESSION: 1. Mild asymmetric interstitial thickening and opacity within the right lung. A mild infectious process is favored. Asymmetric pulmonary edema could appear similar although is considered less likely. 2. Moderate cardiomegaly. Electronically signed by: Quincy Spears M.D. 07/08/2018 6:58 AM Dictated: 07/08/1856 Transcribed: 07/08/18655 Hospital Course (1) Cardiomyopathy: Newly dx cardiomyopathy Pro BNP on admission 16K ECHO showed reduced EF btw 35-40% Cardiology on board Continue Low dose ACEI continue Toprol 25mg BID Continue IV lasix BID Continue spironolactone Plan to change to oral lasix today by cardiology Cardiac cath done showed no significant vessel blockage Clinically improves Monitor BMP while on diuretic Diuresis about 17.5L and lost about 25lbs Clinically improves Case discussed with cardiology and ok from cardiology standpoint to discharge home Will discharge on metoprolol 25mg BID, spironolactone 12.5 mg and lasix 40mg daily Additional PM dose lasix PRN for signs of volume overload signs of volume overload reviewed with patient and Will check BMP next week Follow up with cardiology in 1 week (2) Atrial fibrillation with rapid ventricular response: Converted back to NSR after receiving IV metoprolol Rate control with metoprolol starting on eliquis BID Follow up with cardiology (3) Acute hypoxemic respiratory failure: possible related to cardiomyopathy vs pneumonia CXR showed mild asymmetric interstitial thickening and opacity within the right lung CTA showed no evidence for PE WBC elevated on admission Completed course of doxycycline saturated well on RA Clinically stable (4) Anxiety: Continue low dose of benzo prn while in the hospital Will need to follow up with PCP and can start on SSRI if symptoms of anxity do not improve (5) Elevated troponin: Due to demand ischemia from cardiomyopathy/fluid overload Troponin trending down EKG showed no ischemic changes Continue aspirin, toprol and statin Denies any chest pain currently S/p cardiac with no significant vessels dx RA Complaint of joint tenderness Methotrexate given today Advised pt to avoid any NSAIDs (Motrin, Aleve, Advil, Naproxen, Ibuprofen,..) due to increase risk of bleeding Stable DVT px D/C Lovenox On Eliquis CODE STATUS full code Disposition Discharge home today Total Time Total Time Spent Total Time Spent (In Minutes): 35 minutes Total Time Includes: Examination of the Patient, Discharge Planning, Medication Reconciliation, Communication With Other Providers and Other Discharge Plan Discharge Items Patient Disposition: Home - Self-Care Reason For Visit: RESP FAILURE Discharge Diagnosis: Cardiomyopathy Atrial fibrillation with RVR Acute hypoxemic respiratory failure: Anxiety Condition: Good Discharge Goals: Decrease discomfort, Diagnostic testing, Improve disease control, Improve function and Increase independence Activity: Resume your previous activity Activity Comment: as tolerated Non-emergency contact: Primary Care Provider and [facility] Call non-emergency contact if: you have any medication questions and your s ymptoms worsen Follow-up/Referrals: PCP,NO [Primary Care Provider] - Diet: Heart Healthy and Low Sodium (2gm) Addtl Provider Instructions: Follow up with new primary care provider Dr. Genao on 07/20 @ 11:05 AM ([facility]) Follow up with cardiology Teresa Tenorio PA-C on 07/22 @ 10:45 AM ([facility] ) Check BMP within 1 week to monitor electrolytes and kidney function Continue lasix 40mg daily. Additional PM dose lasix can be given as needed if your weight increases by 3lbs or more or if you develop any signs of volume overload (such as shortness of breath,..) Notify your physician if you develop any abnormal bleeding while on Eliquis Avoid any NSAIDs (Motrin, Aleve, naproxen, Ibuprofen, advil) while on eliquis due increase risk of bleeding Fall precaution Medication Instructions: Eliquis Your condition is typically treated with an anticoagulant. Anticoagulants will thin your blood to help prevent new clots. You should take her medication exactly as directed. Never skip a dose. Never take a double dose. If you miss a dose, take it as soon as you remember. Avoid NSAIDs (Motrin, Aleve, Naproxen, Ibuprofen, Advil, Meloxicam,..) due to risks of bleeding Call your Primary Care doctor if you experience any of the following: Swelling or Pain in your leg Sudden, continuous pain deep in a muscle Pain that worsens when you are active or when you stand still for a long time Chest Pain Sudden Shortness of Breath Rapid or pounding heart beat Fainting Dizziness Cough with blood or bloody sputum Sweating more than normal Bruises Heavy or uncontrolled bleeding Blood in your urine, stool or vomit Black or tarry stools Follow Up: It is important for you to keep your follow up appointments with your medical provider. Prescriptions: New furosemide 40 mg Tablet 40 mg PO QAM 30 Days Qty: 30 RF: 0 aspirin [Ecotrin Low Strength] 81 mg Tablet,Delayed Release (Dr/Ec) 81 mg PO QAM 30 Days Qty: 30 RF: 0 spironolactone 25 mg Tablet 12.5 mg PO DAILY 30 Days Qty: 15 RF: 0 potassium chloride [Klor-Con M20] 20 mEq Tablet,Er Particles/Crystals 20 meq PO QAM 30 Days Qty: 30 RF: 0 lisinopril [Zestril] 10 mg Tablet 10 mg PO QAM 30 Days Qty: 30 RF: 0 metoprolol succinate 25 mg Tablet Extended Release 24 Hr 25 mg PO BID 30 Days Qty: 60 RF: 0 Eliquis 5 mg Tablet 5 mg PO BID 30 Days Qty: 60 RF: 0 Continued prednisone 10 mg Tablet 10 mg PO WK PRN (Reason: Unknown) RF: 0 methotrexate sodium 2.5 mg Tablet 15 mg PO WK RF: 0 Discontinued naproxen sodium [Aleve] 220 mg Capsule 220 mg PO BID PRN (Reason: Pain) RF: 0 Stand-Alone Forms: Call Back Authorization, [facility]/Other Patient Handouts: Apixaban Oral tablet, Prediabetes, Heart Failure Warning Signs, Cardiomyopathy Living, Fibrillation Atrial Dc, Diabetes Meal Planning Discharge Orders: Discharge Order (Routine); Ordered 07/15/18 Ordered By: Libby Candelario Admission Data Admit Date/Time: 07/08/18 07:11 Attending Provider: Libby Candelario Admit Provider: Geovany Gamino Primary Care Provider: PCP,NO Other Providers: Geovany Gamino ; Catalino Broderick ; Clinton Faustin ; Ernesto Salter ; Sterling Teresa ; Jeyson Acevedo ; Pipo Vega ; Teresa Tenorio ; Sarah Ann Service: Telemetry Other Interventions: Discharge Summary Assessment (RN) Last Done: 07/15/18 14:04 DC Date/Time DO NOT enter until pt leaves facility: 07/15/18 15:00
== END 2018-07-15 15:00 | disposition home or self-care (01) | DRG 286 ==
LOC: ED 04:55 → 2E 07:11

== ENCOUNTER 2019-06-14 16:57 | Inpatient (IN) ==
[2019-06-14] MEDS ORDERED: HYDROmorphone INJ 1 MG/ML SYRINGE IV STA ×3 (17:56→20:30)
[2019-06-14 18:15] LABS: Basophils # (auto) 0.03 K/uL (0-0.2); Basophils % (auto) 0.2 %; Eosinophils # (auto) 0.14 K/uL (0-0.5); Hematocrit (blood only) 38.6 % (42-52); Hemoglobin 12.7 g/dL (14.0-18.0); Immature Granulocytes # (auto) 0.16 K/uL (0.00-0.02); Immature Granulocytes % (auto) 1.2 %; Lymphocytes # (auto) 0.95 K/uL (1.2-3.4); Lymphocytes % (auto) 6.9 %; Mean Corpuscular Hemoglobin 27.6 pg (25-34); Mean Corpuscular Hgb Conc 32.9 g/dL (32-36); Mean Corpuscular Volume 83.9 fL (80-100); Mean Platelet Volume 9.4 fL (7.4-10.4); Monocytes # (auto) 1.52 K/uL (0.11-0.59); Monocytes % (auto) 11.1 %; Neutrophils # (auto) 10.94 K/uL (1.4-6.5); Neutrophils % (auto) 79.6 %; Platelet Count 410 K/uL (130-400); RDW Coefficient of Variation 14.7 % (11.5-14.5); White Blood Count 13.74 K/uL (4.8-10.8)
[2019-06-14 18:36] LABS: Albumin Globulin Ratio 0.6 (0.9-2); Albumin Level 2.7 gm/dl (3.4-5.0); Bilirubin,Total 0.4 mg/dl (0.2-1); Calcium 9.3 mg/dl (8.5-10.1); Creatinine Clr Calc Pharmacy 59.4 ml/min; Est GFR (African American) 39.3; Est GFR (Non-African American) 33.9; Globulin 4.4 gm/dl (2.5-4.0); Potassium 4.6 mmol/L (3.5-5.1); Total Protein 7.1 gm/dl (6.4-8.2)
[2019-06-14] MEDS ORDERED: ACETAMINOPHEN 325 MG TAB PO STA (19:34)
[2019-06-14] MEDS ORDERED: HYDROmorphone INJ 1 MG/ML SYRINGE IV PRN (19:46)
[2019-06-14 20:37] LABS: Magnesium 1.8 mg/dl (1.8-2.4); Thyroid Stimulating Hormone 5.56 uIu/ml (0.300-4.500)
--- NOTE | 2019-06-14 20:38 | XRay Report ---
XR chest 1V portable CLINICAL HISTORY: 64 years-old Male presenting with fever. TECHNIQUE: Portable upright AP view of the chest was obtained. COMPARISON: 07/11/2018. FINDINGS: Cardiac silhouette top normal in size. Asymmetric radiolucency of the left hemithorax without convinc ing evidence of pneumothorax. This may relate to technique or differing overlapping soft tissues. Irr egular bandlike opacities in the right perihilar region and right lung base. Minimal left basilar opa city. No large effusion or pneumothorax. Upper abdomen normal. IMPRESSION: 1. Asymmetric radiolucency of the left lung may relate to differing overlapping soft tissues as ther e is no convincing evidence of pneumothorax. 2. Minimal right perihilar and right basilar irregular linear opacities may represent atelectasis. P neumonia is considered unlikely. ACT 112: Negative or not required by law. Electronically signed by: Justin Gtz M.D. 06/14/2019 8:36 PM
[2019-06-14 20:49] LABS: T4 Free Thyroxine 1.35 ng/dl (0.8-1.6)
[2019-06-14] MEDS ORDERED: SODIUM CHLORIDE 0.9% 500 ML IV ONE ×2 (20:54→23:13)
[2019-06-14 21:23] LABS: Creatine Kinase 236 U/L (39-308)
--- NOTE | 2019-06-14 21:45 | CT Scan Report ---
CT abd pelvis wo con CLINICAL HISTORY: 64 years-old Male presenting with abd/back pain, osseous metastases, multiple fract ures. TECHNIQUE: Multidetector CT of the abdomen and pelvis was performed without the use of intravenous co ntrast. IV contrast: None. One or more dose lowering techniques were used consistent with the princip les of ALARA (as low as reasonably achievable), including automatic exposure control, mA or kV adjust ment to individual patient size, and/or use of iterative reconstruction. COMPARISON: Lumbar spine MRI from 04/23/2019. CT DOSE (mGy.cm): The estimated cumulative dose is 1712.20 mGy.cm. FINDINGS: Presentation Manager topogram: Unremarkable. Lung bases: Aortic valve calcification. Normal heart size. No pericardial or pleural effusion. Depend ent bandlike opacities at the right lung base likely atelectasis. Underlying pulmonary cysts or emphy sema with significant involvement of the lung bases. Liver: Nodular morphology of the liver with multiple underlying lesions. These are new from prior exa m. Density consistent with hepatic steatosis. Biliary: No gross biliary ductal dilatation allowing for noncontrast technique. Normal gallbladder. Pancreas: Mild parenchymal atrophy. Spleen: Normal noncontrast appearance. Adrenal glands: Normal noncontrast appearance. Kidneys and ureters: Normal noncontrast appearance. No nephrolithiasis. No hydronephrosis. Normal ure ters. Bladder: Circumferential bladder wall thickening. Pelvic organs: TURP defect suggested. Bowel: Mild diverticulosis of the descending colon without wall thickening or pericolonic inflammator y change. The appendix is normal. No bowel obstruction. Peritoneal cavity: No free fluid or intraperitoneal gas. Lymph nodes: No gross lymphadenopathy allowing for noncontrast technique. Vasculature: Atherosclerosis of the normal caliber abdominal aorta. Abdominal wall: Infiltration of the left lateral abdominal wall subcutaneous tissue and left flank. N o subcutaneous hematoma. Musculoskeletal: Degenerative changes of the spine. Significant central predominant endplate compress ion deformity of L5. This may also have a slight burst fracture appearance. Retropulsion of the poste rior cortex of L5 with moderate effacement of the spinal canal at this level. This has worsened from the prior MRI. Lytic lesion noted in the posterior right eighth rib lucent lesions also noted in the pelvis and the bilateral zoya and potentially in L1. The lesion in L2 evident on MRI is minimally reza arent. IMPRESSION: 1. Findings highly suggestive of hepatic and osseous metastatic disease. The primary site of maligna ncy is not clearly demonstrated. Consider outpatient PET/CT for further evaluation. 2. Burst type compression deformity of L5 with worsened retropulsion of the posterior cortex and wor sened spinal canal effacement, now moderate in severity. 3. Mild diverticulosis. No diverticulitis. 4. Underlying emphysema or cystic lung disease. ACT 112: Negative or not required by law. Electronically signed by: Justin tGz M.D. 06/14/2019 9:43 PM
[2019-06-14] MEDS ORDERED: DOXYCYCLINE HYCLATE 100 MG in DEXTROSE 5% 100 ML IV STA (21:57)
[2019-06-14] MEDS ORDERED: fentaNYL 12 MCG/HR TDSY TD SCH (22:00)
--- NOTE | 2019-06-14 22:41 | Ultrasound Report ---
US venous doppler LE RT CLINICAL HISTORY: 64 years-old Male presenting with RLE swelling. TECHNIQUE: Real-time grayscale and color and spectral Doppler ultrasound imaging of the veins of the right lower extremity was performed. Compression and augmentation were also utilized. COMPARISON: 04/23/2019. FINDINGS: RIGHT: Common femoral vein: Patent. Greater saphenous vein (superficial): Patent. Deep femoral vein: Patent. Femoral vein: Patent. Popliteal vein: Patent. Calf veins: Patent. Other: None. IMPRESSION: No evidence of deep venous thrombosis. ACT 112: Negative or not required by law. Electronically signed by: Justin Gtz M.D. 06/14/2019 10:40 PM
[2019-06-14] MEDS ORDERED: ACETAMINOPHEN 325 MG TAB PO PRN (23:13)
[2019-06-14] MEDS ORDERED: POLYETHYLENE (MIRALAX) 17 GM PACK PO PRN (23:13)
[2019-06-14] MEDS ORDERED: PROMETHAZINE HCL 12.5 MG in SODIUM CHLORIDE 0.9% 50 ML IV PRN (23:13)
[2019-06-14] MEDS ORDERED: LORazepam 0.25 MG/0.5 ML VIAL IV PRN (23:13)
[2019-06-14] MEDS ORDERED: ARTIFICIAL TEARS OP PRN (23:13)
[2019-06-14] MEDS ORDERED: HYDROCORTISONE 2.5% CR 30 GM TUBE EXT PRN (23:13)
--- NOTE | 2019-06-14 23:14 | Emergency Department Note ---
Entered by Jessie Kc acting as a scribe for History of Present Illness General Chief complaint: Back Injury/Pain Stated complaint: SEVERE BACK AND HIP PAIN Time Seen by Provider: 06/14/19 17:36 History of Present Illness Provider complaint: back pain Onset (ago): hour(s) 4 Location: back Radiation: other (hips, legs, sternum) Pain Consistency: + other (worsening) Maximum Pain Intensity: 8 Exacerbated By: + other (changing positions) Associated symptoms: + denies other symptoms (congestion), + diaphoresis and + other (chronic back pain, metastatic bone cancer, no bowel movement in 3 days, possibly start chemotherapy ); no cough, no fever/chills and no nausea/vomiting Treatments prior to arrival: other (15 mg oxycodone) The patient is a 64 year old male who presents to the ED with complaints of worsening back pain that started 4 hours ago. The patient states that he has chronic back pain from his metastatic bone cancer, but the pain has gotten increasingly worse today. The patient states that he was at his oncology appointment today at [facility] this afternoon and was referred here for pain control. The patient states that he was also referred here to possibly get a plan started for chemotherapy. The patient states that his pain radiate to his hips, legs and sternum. The patient states that his pain is exacerbated by changing positions. The patient notes that he becomes diaphoretic when his pain is severe. The patient states that he take 3-4 oxycodone daily which barely helps his pain. The patient notes that he has taken 1- 15 mg oxycodone today. The patient notes that he has not had a bowel movement in 3 days. The patient denies having a cough, congestion, nausea, vomiting and fever. Home Medications Home Medications Medication Instructions Recorded Confirmed Type gabapentin 300 mg PO TID 06/14/19 06/14/19 History hydroxychloroquine 400 mg PO .DAILY@NOON 06/14/19 06/14/19 History metoprolol succinate 25 mg PO BID 06/14/19 06/14/19 History oxycodone 15 mg PO Q6 PRN 06/14/19 06/14/19 History Allergies Allergy/AdvReac Type Severity Reaction Status Date / Time No Known Allergies Allergy Unverified 06/14/19 19:15 Past Med/Surg History Social History Preferred Language: Guinean Communication Ability: Effective Beliefs That Will Affect Care: None Current Living Situation: Spouse Feels Safe at Home: Yes Smoking Status: Never smoker Hx Alcohol Use: No Hx Substance Use: No Review of Systems See HPI for pertinent positives & negatives. and A total of 10 systems reviewed and were otherwise negative Physical Exam Vital Signs Vital Signs - 24 hr 06/14/19 17:31 06/14/19 19:50 06/14/19 20:40 Temperature 38.2 C H 36.8 C Temperature Source Oral Oral Pulse Rate 109 H Pulse Rate [Finger] 96 H 93 H Pulse Rhythm Regular Pulse Strength Normal Respiratory Rate 20 26 H 22 Respiratory Effort / Characteristics Non-Labored Spontaneous Other Non-Labored Spontaneous Respiratory Depth Normal Normal Respiratory Pattern Regular Blood Pressure 128/83 Blood Pressure [Right Arm] 116/88 145/93 H Blood Pressure Mean 98 Blood Pressure Mean [Right Arm] 97 110 Blood Pressure Position Sitting Blood Pressure Position [Right Arm] Lying Sitting Pulse Oximetry 92 92 98 Oxygen Delivery Method Room Air Room Air Nasal Cannula Oxygen Flow Rate 2 Sepsis Recent Fever Within 48 Hours No Sepsis New/Unexplained Change in Mental Status No Sepsis Action Taken by Nursing No Action Required 06/14/19 21:20 Temperature Temperature Source Pulse Rate Pulse Rate [Finger] 92 H Pulse Rhythm Pulse Strength Respiratory Rate 20 Respiratory Effort / Characteristics Non-Labored Respiratory Depth Normal Respiratory Pattern Blood Pressure Blood Pressure [Right Arm] 123/88 Blood Pressure Mean Blood Pressure Mean [Right Arm] 99 Blood Pressure Position Blood Pressure Position [Right Arm] Pulse Oximetry 93 Oxygen Delivery Method Nasal Cannula Oxygen Flow Rate 2 Sepsis Recent Fever Within 48 Hours Sepsis New/Unexplained Change in Mental Status Sepsis Action Taken by Nursing GENERAL: Awake, alert, uncomfortable-appearing slightly diaphoretic, hunched o alana in pain in wheel chair HENT: Normocephalic, atraumatic. EYES: Normal conjunctiva. Sclera non-icteric. NECK: Supple. No nuchal rigidity. RESPIRATORY: Clear to auscultation. Normal respiratory effort. CARDIAC: Normal rate. Normal rhythm. GI: Soft, non-distended. No tenderness to palpation. LOWER EXTREMITIES: Calves are mildly swollen with chronic stasis changes. NEURO: Normal sensorium. No sensory or motor deficits noted. No facial droop. SKIN: Warm and dry. No rash or jaundice noted. Course Course 1743: Past medical records reviewed. The patient was evaluated in room C09. A complete history and physical exam was performed. 1920: I discussed the patient's case with Dr. Akhil Victoria, Hospitalist. He will evaluate the patient for further management. 1923: I updated the patient on the test results and plan for admission. He verbally agrees and understands. Consultations Consultation #1: I discussed the patient's case with Dr. Akhil Victoria, Hospitalist. He will evaluate the patient for further management. Time: 19:21 Administered Medications Discontinued Medications Acetaminophen (Tylenol) 650 mg PO NOW STA Stop: 06/14/19 19:35 Last Admin: 06/14/19 20:35 Dose: 650 mg Documented by: [id number] Hydromorphone HCl (Dilaudid) 1 mg IV NOW STA Stop: 06/14/19 17:57 Last Admin: 06/14/19 18:05 Dose: 1 mg Documented by: [id number] Hydromorphone HCl (Dilaudid) 1 mg IV NOW STA Stop: 06/14/19 18:52 Last Admin: 06/14/19 19:46 Dose: 1 mg Documented by: [id number] Hydromorphone HCl (Dilaudid) 1 mg IV NOW STA Stop: 06/14/19 20:31 Last Admin: 06/14/19 20:36 Dose: 1 mg Documented by: [id number] Sodium Chloride (Nss) 500 mls @ 500 mls/hr IV .Q1H ONE Stop: 06/14/19 21:53 Last Infusion: 06/14/19 22:33 Dose: 0 mls/hr Documented by: [id number] Admin: 06/14/19 21:20 Dose: 500 mls/hr Documented by: [id number] Medical Decision Making Differential Diagnosis Differential diagnosis: Etiologies such as muscular strain, fracture, metastatic disease, disc herniatio n, sciatica, epidural abscess, vertebral osteomyelitis, discitis, spinal epidural hematoma, cord compression, cauda equina/conus medullaris syndrome, aortic disease, infection, shingles, renal colic, gastrointestinal, acute exacerbation of chronic back pain, as well as others were entertained. Medical Records Attestation: I reviewed the patient's medical records. Home Medications Current Medication List: was personally reviewed by me Laboratory Data Attestation: I reviewed the patient's lab results. Result diagrams: 06/14/19 18:05 06/14/19 18:05 Lab Results 06/14/19 06/14/19 06/14/19 Range/Units 18:05 18:05 18:05 WBC 13.74 H (4.8-10.8) K/uL RBC 4.60 L (4.7-6.1) M/uL Hgb 12.7 L (14.0-18.0) g/dL Hct 38.6 L (42-52) % MCV 83.9 (80-100) fL MCH 27.6 (25-34) pg MCHC 32.9 (32-36) g/dL RDW Std Deviation 45.0 (36.4-46.3) fL RDW Coeff of Arlyn 14.7 H (11.5-14.5) % Plt Count 410 H (130-400) K/uL MPV 9.4 (7.4-10.4) fL Immature Gran % (Auto) 1.2 % Neut % (Auto) 79.6 % Lymph % (Auto) 6.9 % [place] % (Auto) 11.1 % Eos % (Auto) 1.0 % Baso % (Auto) 0.2 % Immature Gran # (Auto) 0.16 H (0.00-0.02) K/uL Neut # (Auto) 10.94 H (1.4-6.5) K/uL Lymph # (Auto) 0.95 L (1.2-3.4) K/uL [place] # (Auto) 1.52 H (0.11-0.59) K/uL Eos # (Auto) 0.14 (0-0.5) K/uL Baso # (Auto) 0.03 (0-0.2) K/uL Sodium 129 L (136-145) mmol/L Potassium 4.6 (3.5-5.1) mmol/L Chloride 96 L (98-107) mmol/L Carbon Dioxide 28 (21-32) mmol/L Anion Gap 5.0 (3-11) BUN 14 (7-18) mg/dl Creatinine 2.03 H (0.6-1.4) mg/dl Est Cr Clr Drug Dosing 59.4 ml/min Est GFR ( Amer) 39.3 Est GFR (Non-Af Amer) 33.9 BUN/Creatinine Ratio 7.0 L (10-20) Glucose 113 H (70-99) mg/dl Osmolality (280-300) mOsm/kg Lactate (0.4-2.0) mmol/L Calcium 9.3 (8.5-10.1) mg/dl Magnesium (1.8-2.4) mg/dl Total Bilirubin 0.4 (0.2-1) mg/dl AST 58 H (15-37) U/L ALT 40 (12-78) U/L Alkaline Phosphatase 242 H (45-117) U/L Total Creatine Kinase (39-308) U/L Troponin I 0.020 (0-0.045) ng/ml Total Protein 7.1 (6.4-8.2) gm/dl Albumin 2.7 L (3.4-5.0) gm/dl Globulin 4.4 H (2.5-4.0) gm/dl Albumin/Globulin Ratio 0.6 L (0.9-2) Procalcitonin (0-0.5) ng/ml TSH (0.300-4.500) uIu/ml Free T4 (0.8-1.6) ng/dl Specimen Hemolysis 06/14/19 06/14/19 06/14/19 Range/Units 18:05 19:54 19:54 WBC (4.8-10.8) K/uL RBC (4.7-6.1) M/uL Hgb (14.0-18.0) g/dL Hct (42-52) % MCV (80-100) fL MCH (25-34) pg MCHC (32-36) g/dL RDW Std Deviation (36.4-46.3) fL RDW Coeff of Arlyn (11.5-14.5) % Plt Count (130-400) K/uL MPV (7.4-10.4) fL Immature Gran % (Auto) % Neut % (Auto) % Lymph % (Auto) % [place] % (Auto) % Eos % (Auto) % Baso % (Auto) % Immature Gran # (Auto) (0.00-0.02) K/uL Neut # (Auto) (1.4-6.5) K/uL Lymph # (Auto) (1.2-3.4) K/uL [place] # (Auto) (0.11-0.59) K/uL Eos # (Auto) (0-0.5) K/uL Baso # (Auto) (0-0.2) K/uL Sodium (136-145) mmol/L Potassium (3.5-5.1) mmol/L Chloride (98-107) mmol/L Carbon Dioxide (21-32) mmol/L Anion Gap (3-11) BUN (7-18) mg/dl Creatinine (0.6-1.4) mg/dl Est Cr Clr Drug Dosing ml/min Est GFR ( Amer) Est GFR (Non-Af Amer) BUN/Creatinine Ratio (10-20) Glucose (70-99) mg/dl Osmolality 271 L (280-300) mOsm/kg Lactate (0.4-2.0) mmol/L Calcium (8.5-10.1) mg/dl Magnesium (1.8-2.4) mg/dl Total Bilirubin (0.2-1) mg/dl AST (15-37) U/L ALT (12-78) U/L Alkaline Phosphatase (45-117) U/L Total Creatine Kinase 236 (39-308) U/L Troponin I (0-0.045) ng/ml Total Protein (6.4-8.2) gm/dl Albumin (3.4-5.0) gm/dl Globulin (2.5-4.0) gm/dl Albumin/Globulin Ratio (0.9-2) Procalcitonin 0.30 (0-0.5) ng/ml TSH (0.300-4.500) uIu/ml Free T4 (0.8-1.6) ng/dl Specimen Hemolysis 06/14/19 06/14/19 Range/Units 19:54 19:59 WBC (4.8-10.8) K/uL RBC (4.7-6.1) M/uL Hgb (14.0-18.0) g/dL Hct (42-52) % MCV (80-100) fL MCH (25-34) pg MCHC (32-36) g/dL RDW Std Deviation (36.4-46.3) fL RDW Coeff of Arlyn (11.5-14.5) % Plt Count (130-400) K/uL MPV (7.4-10.4) fL Immature Gran % (Auto) % Neut % (Auto) % Lymph % (Auto) % [place] % (Auto) % Eos % (Auto) % Baso % (Auto) % Immature Gran # (Auto) (0.00-0.02) K/uL Neut # (Auto) (1.4-6.5) K/uL Lymph # (Auto) (1.2-3.4) K/uL [place] # (Auto) (0.11-0.59) K/uL Eos # (Auto) (0-0.5) K/uL Baso # (Auto) (0-0.2) K/uL Sodium (136-145) mmol/L Potassium (3.5-5.1) mmol/L Chloride (98-107) mmol/L Carbon Dioxide (21-32) mmol/L Anion Gap (3-11) BUN (7-18) mg/dl Creatinine (0.6-1.4) mg/dl Est Cr Clr Drug Dosing ml/min Est GFR ( Amer) Est GFR (Non-Af Amer) BUN/Creatinine Ratio (10-20) Glucose (70-99) mg/dl Osmolality (280-300) mOsm/kg Lactate 1.5 (0.4-2.0) mmol/L Calcium (8.5-10.1) mg/dl Magnesium 1.8 (1.8-2.4) mg/dl Total Bilirubin (0.2-1) mg/dl AST (15-37) U/L ALT (12-78) U/L Alkaline Phosphatase (45-117) U/L Total Creatine Kinase (39-308) U/L Troponin I (0-0.045) ng/ml Total Protein (6.4-8.2) gm/dl Albumin (3.4-5.0) gm/dl Globulin (2.5-4.0) gm/dl Albumin/Globulin Ratio (0.9-2) Procalcitonin (0-0.5) ng/ml TSH 5.560 H (0.300-4.500) uIu/ml Free T4 1.35 (0.8-1.6) ng/dl Specimen Hemolysis Imaging Data Radiologist's Impression: Radiology results as stated below per my review and the radiologist's interpretation: XR chest 1V portable CLINICAL HISTORY: 64 years-old Male presenting with fever. TECHNIQUE: Portable upright AP view of the chest was obtained. COMPARISON: 07/11/2018. FINDINGS: Cardiac silhouette top normal in size. Asymmetric radiolucency of the left hemithorax without convincing evidence of pneumothorax. This may relate to technique or differing overlapping soft tissues. Irregular bandlike opacities in the right perihilar region and right lung base. Minimal left basilar opacity. No large effusion or pneumothorax. Upper abdomen normal. IMPRESSION: 1. Asymmetric radiolucency of the left lung may relate to differing overlapping soft tissues as there is no convincing evidence of pneumothorax. 2. Minimal right perihilar and right basilar irregular linear opacities may represent atelectasis. Pneumonia is considered unlikely. ACT 112: Negative or not required by law. Electronically signed by: Justin Gtz M.D. 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 Given additional oxycodone his doctors which he took prior to arrival but still with severe pain. States he is been a severe pain and screaming on the right over the hospital. Bone cancer in his lower back and breastbone. Using 15 mg oxycodone several times a day without relief. Referred from the radiation oncology office today where he is going for additional evaluation to disappear pain. Significant pain with movements. Has not any chemo or radiation therapy yet. Fever noted in triage but upon my assessment of the room he is 37 degrees orally. No other antipyretics given. Does appear a little bit diaphoretic but he states this is related to his severe pain. Basic labs were obtained. Given some Dilaudid for pain control. Patient with a slight leukocytosis of 13.74 and review of records it appears somewhat similar to his last time at the end of March. Patient denies any URI symptoms. No change in radiation of the pain to the lower extremities or new neurological findings here. Chronic stasis of lower extremities is noted. At this time given the patient's uncontrolled pain believe he requires further evaluation and pain control in the hospital. Impression & Plan Intractable back pain Discharge Plan Visit Data Chief Complaint: Back Injury/Pain Stated Complaint: SEVERE BACK AND HIP PAIN ED Provider: Donnell Garcia Discharge Problem: Intractable back pain Patient Disposition: Being Evaluated by Hospitalist Discharge Instructions Interventions: ED Discharge Assessment Last Done: 06/14/19 22:39 The scribe's documentation has been prepared under my direction and personally reviewed by me in its entirety. I confirm that the note above accurately refle cts all work, treatment, procedures, and medical decision making performed by me.
[2019-06-15] MEDS: DOCUSATE SODIUM/SENNA 50/8.6MG TAB PO SCH ×3 (00:12→22:03)
[2019-06-15] MEDS: METOPROLOL SUCC 25MG EXT REL TAB PO SCH ×3 (00:12→22:03)
[2019-06-15] MEDS: HEPARIN SOD 5,000 UNIT/0.5 ML VIAL SQ SCH ×4 (00:12→22:04)
[2019-06-15] MEDS: CHECK FENTANYL PATCH PLACEMENT SCH ×4 (00:46→23:13)
--- NOTE | 2019-06-15 01:22 | History & Physical Report ---
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 chronic systolic heart failure secondary to nonischemic cardiomyopathy (EF 35 to 40%, TTE 2019), patient on the dry side PAF, patient currently NSR Not on anticoagulation rheumatoid arthritis on Plaquenil chronic anemia secondary to CRI, hemoglobin at baseline Hyperglycemia secondary to prediabetes, hemoglobin A1c of 6.26 June 2018 past tobacco abuse Medical telemetry Cultures, Doxycycline for now Check UA Monitor creatinine response to gentle IV hydration RLE venous Dopplers rule out DVT Analgesia, initiate Fentanyl patch Inpatient Pain Management and Radiation Oncology consultations for patient's cancer pain as per [facility] oncologist recommendations as per patient. PT OT eval DVT prophylaxis. Heparin subcu Full code Text document was generated using Logan voice recognition software. It may contain grammatical or spelling errors. Kindly contact undersigned for clarification of any documentation item in question. History of Present Illness Pelvic pain Chief Complaint: Uncontrolled back pain, sent by oncologist Primary Care Provider: Grzegorz Jaquez DO History obtained from patient, family, and records. Medical history significant for new diagnosis of metastatic GE junction adenocarcinoma, chronic systolic heart failure secondary to Nonischemic cardiomyopathy (EF 35 to 40%, TTE 2019), PAF currently off anticoagulation, rheumatoid arthritis, chronic LE lymphedema, CRI (baseline creatinine 1.5), chronic anemia (baseline hemoglobin 12), past tobacco abuse. Recent confinement June 2018 for new diagnosis of heart failure. Paroxysmal A. fib noted during confinement. Patient discharged on Eliquis for anticoagulation. Eliquis discontinued a few months later by applique sewer after outpatient telemetry did not show recurrent AF. Patient seen at the ER last March 2019 for back pain with radiation to the hips. MRI showed multiple compression fractures as well as several lesions consistent with bone mets. Additional outpatient CT imaging in the subsequent months showed metastatic liver lesions and multifocal osteoblastic/osteolytic bone mets. Outpatient EGD 2 weeks ago disclosed a mass on the lower third of esophagus/GE junction. Subsequent pathology showed moderately differentiated adenocarcinoma. Worsening pelvic pain with usual leg weakness with trouble standing up the last 2 weeks. No unusual incontinence symptoms. Home medications barely helping for the pain. Some right leg swelling noted a few days ago after a blistering wound. Some chills. No unusual chest pain, S OB, cough symptoms. [place] [facility] [place]. Patient directed to ER for admission for pain control. 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 Allergies Allergy/AdvReac Type Severity Reaction Status Date / Time No Known Allergies Allergy Unverified 06/14/19 19:15 Home Medications Home Medications Medication Instructions Recorded Confirmed Type gabapentin 300 mg PO TID 06/14/19 06/14/19 History hydroxychloroquine 400 mg PO .DAILY@NOON 06/14/19 06/14/19 History metoprolol succinate 25 mg PO BID 06/14/19 06/14/19 History oxycodone 15 mg PO Q6 PRN 06/14/19 06/14/19 History Past Med/Surg History Social History Preferred Language: Faroese Communication Ability: Effective [employer]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 Beliefs That Will Affect Care: None Current Living Situation: Spouse Other Information That Helps Us Care for You: No Feels Safe at Home: Yes Safety Concerns: Feels Safe At This Time Smoking Status: Never smoker Do You Dip or Chew Tobacco: No ; Second Hand Exposure: No ; Hx Alcohol Use: No Hx Substance Use: No Review of Systems Review of Systems: As per HPI, all 10 systems reviewed, all other ROS negative Physical Exam Physical Exam: GENERAL: Slightly uncomfortable, morbidly obese, no respiratory distress SKIN: Pallor , warm HEENT: Pale palpebral conjunctivae, no ptosis, dry buccal mucosa NECK : Supple, short neck, no tenderness CHEST : Decreased breath sounds , no tenderness HEART : Tachycardic , no obvious murmurs ABDOMEN: Some distention, minimal hypogastric tenderness BACK : Minimal low back tenderness, negative straight leg raise test EXTREMITIES : Erythematous swelling RLE with abraded skin on the lateral aspect, minimal RLE tenderness NEUROLOGIC : Coherent, no facial asymmetry, no other gross focality Results & Data Vital Signs (Past 12 Hours) Vital Signs Temp Pulse Pulse Resp BP BP Pulse Ox 06/14/19 21:20 92 H 20 123/88 93 06/14/19 20:40 36.8 C 93 H 22 145/93 H 98 06/14/19 19:50 96 H 26 H 116/88 92 06/14/19 17:31 38.2 C H 109 H 20 128/83 92 Laboratory Results Laboratory Results WBC 13.74 K/uL (4.8-10.8) H 06/14/19 18:05 RBC 4.60 M/uL (4.7-6.1) L 06/14/19 18:05 Hgb 12.7 g/dL (14.0-18.0) L 06/14/19 18:05 Hct 38.6 % (42-52) L 06/14/19 18:05 MCV 83.9 fL (80-100) 06/14/19 18:05 MCH 27.6 pg (25-34) 06/14/19 18:05 MCHC 32.9 g/dL (32-36) 06/14/19 18:05 RDW Std Deviation 45.0 fL (36.4-46.3) 06/14/19 18:05 RDW Coeff of Arlyn 14.7 % (11.5-14.5) H 06/14/19 18:05 Plt Count 410 K/uL (130-400) H 06/14/19 18:05 MPV 9.4 fL (7.4-10.4) 06/14/19 18:05 Immature Gran % (Auto) 1.2 % 06/14/19 18:05 Neut % (Auto) 79.6 % 06/14/19 18:05 Lymph % (Auto) 6.9 % 06/14/19 18:05 [place] % (Auto) 11.1 % 06/14/19 18:05 Eos % (Auto) 1.0 % 06/14/19 18:05 Baso % (Auto) 0.2 % 06/14/19 18:05 Immature Gran # (Auto) 0.16 K/uL (0.00-0.02) H 06/14/19 18:05 Neut # (Auto) 10.94 K/uL (1.4-6.5) H 06/14/19 18:05 Lymph # (Auto) 0.95 K/uL (1.2-3.4) L 06/14/19 18:05 [place] # (Auto) 1.52 K/uL (0.11-0.59) H 06/14/19 18:05 Eos # (Auto) 0.14 K/uL (0-0.5) 06/14/19 18:05 Baso # (Auto) 0.03 K/uL (0-0.2) 06/14/19 18:05 Sodium 129 mmol/L (136-145) L 06/14/19 18:05 Potassium 4.6 mmol/L (3.5-5.1) 06/14/19 18:05 Chloride 96 mmol/L (98-107) L 06/14/19 18:05 Carbon Dioxide 28 mmol/L (21-32) 06/14/19 18:05 Anion Gap 5.0 (3-11) 06/14/19 18:05 BUN 14 mg/dl (7-18) 06/14/19 18:05 Creatinine 2.03 mg/dl (0.6-1.4) H 06/14/19 18:05 Est Cr Clr Drug Dosing 59.4 ml/min 06/14/19 18:05 Est GFR ( Amer) 39.3 06/14/19 18:05 Est GFR (Non-Af Amer) 33.9 06/14/19 18:05 BUN/Creatinine Ratio 7.0 (10-20) L 06/14/19 18:05 Glucose 113 mg/dl (70-99) H 06/14/19 18:05 Osmolality 271 mOsm/kg (280-300) L 06/14/19 19:54 Lactate 1.5 mmol/L (0.4-2.0) 06/14/19 19:59 Calcium 9.3 mg/dl (8.5-10.1) 06/14/19 18:05 Magnesium 1.8 mg/dl (1.8-2.4) 06/14/19 19:54 Total Bilirubin 0.4 mg/dl (0.2-1) 06/14/19 18:05 AST 58 U/L (15-37) H 06/14/19 18:05 ALT 40 U/L (12-78) 06/14/19 18:05 Alkaline Phosphatase 242 U/L (45-117) H 06/14/19 18:05 Total Creatine Kinase 236 U/L (39-308) 06/14/19 18:05 Troponin I 0.020 ng/ml (0-0.045) 06/14/19 18:05 Total Protein 7.1 gm/dl (6.4-8.2) 06/14/19 18:05 Albumin 2.7 gm/dl (3.4-5.0) L 06/14/19 18:05 Globulin 4.4 gm/dl (2.5-4.0) H 06/14/19 18:05 Albumin/Globulin Ratio 0.6 (0.9-2) L 06/14/19 18:05 Procalcitonin 0.30 ng/ml (0-0.5) 06/14/19 19:54 TSH 5.560 uIu/ml (0.300-4.500) H 06/14/19 19:54 Free T4 1.35 ng/dl (0.8-1.6) 06/14/19 19:54 Specimen Hemolysis 06/14/19 18:05 Specimen Hemolysis 06/14/19 18:05 Diagnostic Findings Chest x-ray : 1. Asymmetric radiolucency of the left lung may relate to differing overlapping soft tissues as there is no convincing evidence of pneumothorax. 2. Minimal right perihilar and right basilar irregular linear opacities may represent atelectasis. Pneumonia is considered unlikely. CT abdomen pelvis: 1. Findings highly suggestive of hepatic and osseous metastatic disease. The primary site of malignancy is not clearly demonstrated. Consider outpatient PET/CT for further evaluation. 2. Burst type compression deformity of L5 with worsened retropulsion of the posterior cortex and worsened spinal canal effacement, now moderate in severity. 3. Mild diverticulosis. No diverticulitis. 4. Underlying emphysema or cystic lung disease. Code Status & VTE Plan VTE Prophylaxis Plan VTE Prophylaxis will be ordered: Yes
[2019-06-15] MEDS: HYDROmorphone INJ 0.5 MG/0.5 ML SYR IV PRN ×2 (03:41→05:45)
[2019-06-15 05:47] LABS: Basophils # (auto) 0.02 K/uL (0-0.2); Basophils % (auto) 0.2 %; Eosinophils # (auto) 0.33 K/uL (0-0.5); Eosinophils % (auto) 3.6 %; Hematocrit (blood only) 35.4 % (42-52); Hemoglobin 11.6 g/dL (14.0-18.0); Immature Granulocytes % (auto) 1.1 %; Lymphocytes # (auto) 1.19 K/uL (1.2-3.4); Lymphocytes % (auto) 12.8 %; Mean Corpuscular Hemoglobin 27.5 pg (25-34); Mean Corpuscular Hgb Conc 32.8 g/dL (32-36); Mean Corpuscular Volume 83.9 fL (80-100); Mean Platelet Volume 9.1 fL (7.4-10.4); Monocytes % (auto) 11.9 %; Neutrophils # (auto) 6.53 K/uL (1.4-6.5); Neutrophils % (auto) 70.4 %; Platelet Count 368 K/uL (130-400); RDW Coefficient of Variation 14.7 % (11.5-14.5); RDW Standard Deviation 45.4 fL (36.4-46.3); Red Blood Count 4.22 M/uL (4.7-6.1); White Blood Count 9.27 K/uL (4.8-10.8)
[2019-06-15 06:15] LABS: Albumin Level 2.5 gm/dl (3.4-5.0); Calcium 8.8 mg/dl (8.5-10.1); Creatinine Clr Calc Pharmacy 62.4 ml/min; Est GFR (African American) 43.4; Est GFR (Non-African American) 37.4
[2019-06-15 06:17] LABS: Albumin Globulin Ratio 0.6 (0.9-2); Bilirubin,Total 0.4 mg/dl (0.2-1); Globulin 3.9 gm/dl (2.5-4.0); Total Protein 6.4 gm/dl (6.4-8.2)
[2019-06-15] MEDS: OXYCODONE HCL IR 5 MG TAB (IMMEDIATE RELEASE) PO PRN (06:18)
[2019-06-15 06:35] LABS: Estimated Average Glucose 128 mg/dl; Hemoglobin A1C 6.1 % (4.5-5.6)
[2019-06-15] MEDS ORDERED: BACLOFEN 10 MG TAB PO PRN (08:13)
[2019-06-15] MEDS ORDERED: NALOXONE HCL 0.4 MG/1 ML VIAL/CARP IV PRN (08:13)
[2019-06-15] MEDS ORDERED: MoRPHine Bolus from PCA IV STA (08:13)
[2019-06-15] MEDS ORDERED: MoRPHine Bolus from PCA IV PRN (08:13)
[2019-06-15] MEDS ORDERED: MAGNESIUM CITRATE 296 ML/BTL PO PRN (08:15)
[2019-06-15] MEDS: MORPHINE SULFATE PCA 30 MG/30 ML IV PRN ×2 (08:52→20:01)
[2019-06-15] MEDS: POLYETHYLENE (MIRALAX) 17 GM PACK PO SCH (08:53)
[2019-06-15] MEDS: DOXYCYCLINE HYCLATE 100 MG CAP PO SCH ×2 (08:54→22:03)
[2019-06-15] MEDS: GABAPENTIN 300 MG CAP PO SCH ×3 (08:54→22:02)
--- NOTE | 2019-06-15 09:05 | Pain Management Consultation ---
Date of Consultation June 15, 2019 Assessment & Plan (1) Malignant neoplasm of gastroesophageal junction: 1. Agree with utilization of fentanyl patch in this patient. Will initiate morphine R PROGRAMMER to effectively calculate narcotic requirement. Will adjust fentanyl patch dose tomorrow morning if required. 2. Recommend continuation of OxyIR on a as needed basis. 3. Recommend initiation of Cymbalta 30 mg p.o. every morning to augment descending pain regulation. 4. Recommend utilization of heat to minimize spasm as well as baclofen 10 mg p.o. 3 times daily PRN. 5. Orders are written for Colace, MiraLAX, magnesium citrate if no bowel movement today. Consider Relistor tomorrow if no bowel movement today. 6. Consider fitting patient for lumbar support brace once able to be out of bed to further decrease pain. Orders for orthotics consult are written. 7. There is no role for interventional pain management currently in this patient due to pain presentation. 8. Thank you for this consultation. We will follow with the patient during this hospitalization. 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 The patient states that his pain is predominantly over his axial lumbar spine and posterior pelvic region with some intermittent radiation to his toes and L5-S1 distribution. He characterizes his pain as sharp stabbing shooting electric. He does admit to some spasm type pain over his thoracolumbar spine worse with movement. Pain has been significantly impacting his activities of daily living as well as sleep. Pain is generally between 7 and 10 out of 10. He finds mild efficacy with oxycodone and states he had been utilizing approximately 30-45 mg of oxycodone daily prior to admission. He admits to constipation but denies other side effects of opiates at this time. He denies any bowel or bladder incontinence, motor weakness, footdrop, fever, chills, and or night sweats. He has not had any interventional pain management to date. He was placed on a fentanyl 12 mcg patch at admission, has utilized Oxycodone 5 mg tablets as well as Dilaudid IV 1 mg x 3 doses with mild decrease in pain. The patient reports that he has not had a bowel movement for at least 3 days. He has not utilized any bowel regimen to date. Pain Assessment Full Body Front + Back: 1. 2. 3. [facility] Combined Pain Scale: 7-Severe - Pain prevents productive activity. Impossible to tolerate. Allergies Allergy/AdvReac Type Severity Reaction Status Date / Time No Known Allergies Allergy Unverified 06/14/19 19:15 Home Medications Home Medications Medication Instructions Recorded Confirmed Type gabapentin 300 mg PO TID 06/14/19 06/14/19 History hydroxychloroquine 400 mg PO .DAILY@NOON 06/14/19 06/14/19 History metoprolol succinate 25 mg PO BID 06/14/19 06/14/19 History oxycodone 15 mg PO Q6 PRN 06/14/19 06/14/19 History Patient History Social History Preferred Language: Syriac Communication Ability: Effective Commutator Repairer Required: No Beliefs That Will Affect Care: None Current Living Situation: Spouse Other Information That Helps Us Care for You: No Feels Safe at Home: Yes Safety Concerns: Feels Safe At This Time Smoking Status: Never smoker Do You Dip or Chew Tobacco: No ; Second Hand Exposure: No ; Hx Alcohol Use: No Hx Substance Use: No Physical Exam Physical Exam: Constitutional: Well-developed, well-nourished, healthy- appearing, obese Psych: Awake, alert, and oriented 3 with normal affect and mood. Recent memory appears grossly intact Eyes: Pupils are equally round and reactive to light with normal size pupils, eyelids appear normal Ear, nose, mouth, and throat: Moist nasal and oral membranes, lips and tongues appear normal, no external ear abnormalities are noted Neck: The trachea is midline without deviation and no thyromegaly is noted Respiratory: Normal respiratory effort without distress, no audible wheezes or rhonchi CV: Normal S1 and S2 Chest: Deferred GI/abdomen: Protuberant, minimally tender without guarding, soft but distended. No rebound noted Musculoskeletal: Head is normocephalic and atraumatic, gait not observed. Patient is able to logroll though with moderate difficulty. Bilateral lower e xtremities show chronic venous stasis changes with lymphedema. Right lower extremity with open skin tears. Cervical: Lordotic curve: Normal Range of motion is normal with extension, flexion, side-bending, rotation Strength: Strength is equal bilaterally with 5 out of 5 strength in all planes Sensation of upper extremities: Intact bilaterally Thoracic: Kyphotic curve: Normal Range of motion is normal with extension, flexion, side-bending, rotation Tenderness: Minimally tender over the axial midline Myofascial spasm: Mild to moderate spasm over thoracic paravertebral musculature. No discrete trigger points noted Lumbar: Lordotic curve: Slight decreased lumbar lordosis Range of motion is decreased in all planes secondary to pain and body habitus Tenderness: Moderately tender over the axial midline from approximately L4-S1. Patient has exquisite tenderness over the base of the sacrum laterally Facet provocation: Difficult to assess secondary to pain and body habitus, though does not appear to be significantly positive Straight leg raise: Negative bilaterally Step-off injuries: None Strength: Strength is equal bilaterally with 5 out of 5 strength in all planes Sensation of lower extremities: Intact bilaterally Deep tendon reflexes: Rated at 1+ in bilateral L4 and S1 Myofascial spasm: Moderate spasm over entire lumbar paravertebral musculature as well as quadratus lumborum. No discrete trigger points noted Greater trochanters: Nontender bilaterally Sacroiliac joints: Mildly tender bilaterally Pathologic reflexes noted: None Skin: No rashes, lesions, ulcers, or induration noted Neuro: No nystagmus noted, the tongue is midline, the patient is able to rotate their head bilaterally : Deferred Results Diagnostic Review MRI: non enhanced and reports reviewed MRI Findings: 04/23/19 Lumbar w/o contrast Normal lumbar lordosis. T1 hypointense, T2 hyperintense lesions in the L1, L2, and L5 vertebral bodies. Compression deformity primarily limited to the central portion of L5 with retropulsion of the posterior cortex. Retropulsion results in residual 12 mm of AP diameter of the thecal sac. A mild compression deformity is also evident along the superior endplate of L1 associated with the abnormal T1 signal intensity. No compression deformity at the L2 lesion, which is evident along the right aspect of the vertebral body posteriorly and extending into the right pedicle. Remainder of the vertebral bodies demonstrate normal height, alignment, and bone marrow signal intensity. Mild intervertebral disc desiccation in the mid lumbar spine. A level by level analysis is also given below: L1-2: No significant spinal canal or neural foraminal narrowing. L2-3: No significant spinal canal or neural foraminal narrowing. L3-4: No significant spinal canal narrowing. Eccentric disc bulge results in mild bilateral neural foraminal narrowing. L4-5: Facet arthropathy. Eccentric disc bulge at the right posterolateral aspect potentially with an associated annular fissure. As results in moderate to severe right neural foraminal narrowing. Possible mass effect on the exiting right L4 nerve root. Mild left neural foraminal narrowing. No significant spinal canal narrowing. L5-S1: Retropulsed L5 vertebral body with possible cortical disruption. Moderate effacement of the spinal canal at this level as well as mass effect on the exiting left L5 nerve root. Facet arthropathy. Moderate right and mild left neural foraminal narrowing. Spinal cord terminates in good position at L1. Cauda equina normal in morpholog y. No paraspinal muscle edema. Nonspecific subcutaneous edema in the lumbar region. A voids within the vasculature preserved. Fatty atrophy of paraspinal musculature likely age-related. IMPRESSION: 1. T1 hypointense abnormal bone marrow signal at L1, L2, and L5. The configuration at L1 could suggest an acute compression deformity or acute Schmorl's node, and the configuration at L5 could suggest an acute compression fracture with retropulsion of the posterior cortex. However, the configuration of the lesion at L2 is not compatible with acute osseous injury. This is highly suspicious for a metastatic lesion. Recommend nuclear medicine bone scan and correlation with PSA. The abnormal bone marrow signal at L1 and L5 may also represent metastatic lesions. 2. Central predominant compression deformity of L5 with retropulsion of the posterior cortex and significant mass effect on the exiting left L5 nerve root. Previous Records Review Previous Records: personally reviewed by mo Opioid Risk Assessment Opioid Risk Assessment: risk assessment performed and minimal risk identified
[2019-06-15] MEDS: DULOXETINE HCL 30 MG CAP PO SCH (09:41)
[2019-06-15] MEDS: HYDROXYCHLOROQUINE SULFATE 200 MG TAB PO SCH (12:11)
[2019-06-15 13:44] LABS: Appearance Urine Clear (Clear); Bilirubin Urine Negative (Negative); Blood Urine Negative (Negative); Color Urine Yellow; Glucose Urine UA Negative (Negative); Ketones Urine Negative (Negative); Leukocyte Esterase Urine Negative (Negative); Nitrite Urine Negative (Negative); Protein Urine Negative (Negative); Specific Gravity Urine 1.011 (1.000-1.030); Urobilinogen Urine Negative (Negative); pH Urine 5.5 (4.5-7.5)
[2019-06-15] MEDS: SODIUM CHLORIDE 0.9% 1000ML 1,000 ML IV SCH (13:56)
--- NOTE | 2019-06-15 16:36 | Radiation OncologyConsultation ---
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 He is having no dysphasia at this time and is showing evidence of metastatic disease. I recommend palliative radiation described below and subsequent evaluation for systemic therapy as recommended by Dr. Blank to consist of Taxol and Herceptin if the patient improves. Present on Admission?: Yes (2) Pathologic compression fracture of lumbar vertebra: Assessment: Patient is a 64-year-old male recently found to have an adenocarcinoma of the GE junction and evidence of metastatic disease to the liver and bone. The bony disease is causing severe pain. He has had a bone scan and MRI and CT scan which define areas of complaint. He is also having complaint of pain in the sternum and ribs also sites of metastatic disease. Treatment Options: 1. I discussed the use of palliative radiation initially to the lumbar spine. 2. We discussed continuing pain medication as recommended by pain management. 3. We discussed the possibility of additional radiation to other sites pending response of the lumbar spine and level of remaining pain in the sternum and ribs. Recommendations: I have recommended the patient undergo a CT simulation tomorrow with initiation of palliative radiation to the lumbar spine either beginning tomorrow late afternoon or . Plan: 1. CT simulation on 06/16/2019 of the lumbar spine. 2. Completion of treatment planning with initiation of palliative radiation either the afternoon of 06/16/2019 or on 06/17/2019. 3. Continuation of pain medication and adjustments as necessary. 4. Continued follow-up by Dr. Blank with initiation of systemic chemotherapy as recommended by Dr. Blank. 5. Continued follow-up with his PCP. Rationale/Explanation of Treatment: The patient has evidence of diffuse metastatic disease of the bone as seen on the whole-body bone scan and on CT scan and MRI. His most painful site at this point is his hips and pain down his leg undoubtedly due to the metastatic disease in the L-spine. We plan to treat this areas with palliative radiation at 300 cGy per fraction for a total of 10 treatments and a total palliative dose of 30 Gy. Once we evaluate patient's response and the persistence of pain in other sites especially his sternum and ribs additional palliative radiation may be considered. If the patient's improves he will be evaluated by Dr. Blank for initiation of systemic chemotherapy. Consideration of treatment to other sites would be discussed with Dr. Blank pending patient's tolerance and response to local and systemic therapy. This chart was completed in part utilizing [employer] Speech Voice Recognition software. Grammatical errors, random word insertions, pronoun errors and incomplete sentences are occasional consequence of this system due to software limitations, ambient noise and hardware issues. Any formal questions or concerns about the content, text or information contained within the body of this dictation should be directly addressed to the provider for clarification. Juan Napier MD Department of Radiation Oncology [facility] [address] Present on Admission?: Yes (3) Intractable back pain: Recommendations: I have recommended the patient undergo a CT simulation tomorrow with initiation of palliative radiation to the lumbar spine either beginning tomorrow late afternoon or . Plan: 1. CT simulation on 06/16/2019 of the lumbar spine. 2. Completion of treatment planning with initiation of palliative radiation either the afternoon of 06/16/2019 or on 06/17/2019. 3. Continuation of pain medication and adjustments as necessary. 4. Continued follow-up by Dr. Blank with initiation of systemic chemotherapy as recommended by Dr. Blank. 5. Continued follow-up with his PCP. Present on Admission?: Yes History of Present Illness Reason for Consultation: Severe back pain with history of adenocarcinoma of the GE junction. Requesting Physician: Dr. Blank Attending Physician: Libby Candelario MD History of Present Illness Mr. Alvarez is a 64-year-old male who noted the onset of back pain following dancing on April 17, 2019. 04/23/2019. Patient eventually presented to the emergency department. The pain initially presented in both hips and radiated into the legs making it difficult to ambulate. The pain was initially mild and became more severe over time. He ultimately noticed some possible weakness and feeling of numbness/[id number]-nur-sxolwbs in the left leg. The pain radiated down the outside of the thigh and calf and into the foot. He rated the pain as 8.5-9 at that time. He specifically denied any abdominal pain weight loss or difficulty swallowing. The patient was given painkillers, oxycodone 5 mg and recommended that he contact his PCP for further evaluation and work-up. 04/23/2019. MRI of the lumbar spine was performed. This showed a T1 hypointense abnormal bone marrow signal at L1, L2 and L5. The configuration at L1 could suggest an acute compression deformity and the configuration at L5 could suggest an acute compression fracture with retropulsion. The configuration of the lesion at L2 was not compatible with acute osseous injury. This lesion was highly suspicious for metastatic disease. Additional studies were recommended. Abnormal bone marrow signal was noted at L1 and L5 also representing possible metastatic lesions. There was central predominant compression deformity of L5 with retropulsion of the posterior cortex and significant mass-effect on the exiting left L5 nerve root. Patient seen by his PCP Dr. Grzegorz Douglas who recommended and ordered additional studies as noted below. 05/04/2019. Patient undergoes whole body bone scan with evidence of diffuse multiple uptake showing osteoblastic metastasis involving the sternum, left T ninth rib, right fourth fifth sixth and eighth rib, bilateral T8 pedicle and possible pedicle involvement of the multiple lumbar segment and T12 vertebral body. 05/14/2019. Patient undergoes CT scan of the chest with contrast, CT of the abdomen with IV and oral contrast. No abnormal mediastinal hilar or axillary lymph nodes were appreciated. There were multiple metastatic lesions throughout the liver with 1 of the largest in segment 4B of the liver measuring 2.1 x 2.4 cm. A small hypodensity was noted in the anterior lower pole of the left kidney measuring 1.3 x 1.3 cm. A small nonspecific gastrohepatic lymph node measuring 0.9 cm in short axis was appreciated with no enlarged abdominal or pelvic lymph nodes. There were multiple lytic lesions in the manubrium sternum and several bilateral ribs. There is acute compression fracture of the mid and posterior L5 with retropulsion. 05/31/2019. Patient was seen by Dr. Schaeffer (livestock haulier) who performed an upper GI endoscopy. This revealed a mass at the GE junction. Patient undergoes a fine-needle aspiration of the esophageal mass and fine-needle aspiration of liver mass #1 and liver mass #2. The FNA of the esophageal mass confirmed adenocarcinoma. Liver mass #1 FNA confirmed adenocarcinoma and liver mass #2 FNA also revealed adenocarcinoma. Accession #: [id number]. A biopsy of the GE junction mass confirmed an adenocarcinoma, moderately differentiated. HER-2/alvino expression was positive, Accession #: [id number]. The patient was scheduled to see Dr. Blank (medical oncologist) however as he was leaving his house for the appointment the patient fell and was unable to make that appointment. It was subsequently rescheduled. 06/14/2019. At this point the patient was experiencing increasing pain which worsened in transportation from his home to the appointment. Dr. Blank reviewed work-up and biopsy findings indicating an esophageal cancer, T3 N1 M1. Because of the progressive pain it was agreed the patient should go to the emergency department for evaluation and pain control. It was also recommended that he be seen by radiation oncology for discussion of the role of palliative radiation. If his status improved it was recommended that he consider weekly Taxol and Herceptin. 06/14/2019. Patient undergoes CT of the abdomen and pelvis. This was performed without IV contrast. There was significant central predominant endplate compression deformity at L5 which appeared slightly worse than on prior MRI with a slight burst fracture appearance. Retropulsion of the posterior cortex of L5 with moderate effacement of the spinal canal at that level was noted. Lytic lesion was noted in the posterior right eighth rib. Lucent lesions were also noted in the pelvis and bilateral zoya and potentially L1. The lesion in L2 was evident on MRI and was minimally apparent on CT scan. These are consistent with hepatic and progressive bony metastatic disease. 06/15/2019. Patient was admitted and seen by pain management, Dr. Banegas. She noted that his pain was in the back radiating in the hips and down the back of the legs. He was started on fentanyl patch 12 mcg and had been using oxycodone 5 mg tablets as well as started on Dilaudid IV 1 mg x 3 doses with mild decrease in pain. Patient was also noted to be constipated and was started on a regimen for constipation. 06/15/2019. Patient seen by radiation oncology for evaluation and discussion of the role of palliative radiation. This chart was completed in part utilizing [employer] Speech Voice Recognition software. Grammatical errors, random word insertions, pronoun errors and incomplete sentences are occasional consequence of this system due to software limitations, ambient noise and hardware issues. Any formal questions or concerns about the content, text or information contained within the body of this dictation should be directly addressed to the provider for clarification. Juan Napier MD Department of Radiation Oncology [facility] [address] Allergies Allergy/AdvReac Type Severity Reaction Status Date / Time No Known Allergies Allergy Unverified 06/14/19 19:15 Home Medications Home Medications Medication Instructions Recorded Confirmed Type gabapentin 300 mg PO TID 06/14/19 06/14/19 History hydroxychloroquine 400 mg PO .DAILY@NOON 06/14/19 06/14/19 History metoprolol succinate 25 mg PO BID 06/14/19 06/14/19 History oxycodone 15 mg PO Q6 PRN 06/14/19 06/14/19 History Patient History Medical History (Updated 06/15/19 @ 09:16 by Bailey Banegas DO) Acute hypoxemic respiratory failure Anxiety Atrial fibrillation with rapid ventricular response Atypical chest pain (Acute) Cancer associated pain (Acute) Cardiomyopathy Constipation Elevated troponin (Acute) Malignant neoplasm of gastroesophageal junction Metastatic cancer to spine (Acute) Pathologic compression fracture of lumbar vertebra L5 with retropulsion Pneumonia (Acute) Rheumatoid arthritis Social History Preferred Language: Slovenian Communication Ability: Effective Business Intelligence Engineer Required: No Beliefs That Will Affect Care: None Current Living Situation: Spouse Feels Safe at Home: Yes Smoking Status: Never smoker Second Hand Exposure: No ; Hx Alcohol Use: No Hx Substance Use: No Review of Systems Review of Systems: All systems reviewed & are unremarkable except as noted in HPI & below Physical Exam Constitutional: cooperative (He indicated his pain level was a 2-3 while lying in bed but would increase significantly with motion. ) and + overweight Eyes: PERRL, conjunctivae normal, anicteric sclerae ENMT: external ear and nose normal, oropharynx normal Neck: trachea midline, no thyromegaly Respiratory: normal respiratory effort, lungs clear to auscultation Cardiovascular: RRR, no murmur, no edema Chest (Breasts): Breast: normal inspection of breasts and normal inspection of axillae Additional Comments: Patient has some sternal tenderness. Gastrointestinal (Abdomen): normal bowel sounds, soft, nontender, no hepatosplenomegaly Musculoskeletal: Spine: + pain with thoraco-lumbar ROM and + lumbar spinal tenderness Skin: There is evidence of bilateral lower extremity chronic venous stasis changes with mild lymphedema right greater than left. There is a right lower extremity open skin tear. Neurologic: normal touch/pain/proprioception and CN's II-XI intact bilaterally Psychiatric: A+Ox3, euthymic affect Lymphatic: no cervical or axillary lymphadenopathy Results Laboratory Results: were reviewed and no pertinent findings Pathology Results: were reviewed and pertinent findings noted in HPI Imaging Studies: were review and pertinent findings noted below and were reviewed and pertinent findings noted in HPI MR lumbar spine wo con CLINICAL HISTORY: 64 years-old Male presenting with low back pain, left sided radiculopathy, numbness. TECHNIQUE: Multisequence, multiplanar MR imaging of the lumbar spine was performed without the use of intravenous contrast. IV contrast: None. COMPARISON: None. FINDINGS: Localizer images: Unremarkable. Normal lumbar lordosis. T1 hypointense, T2 hyperintense lesions in the L1, L2, and L5 vertebral bodies. Compression deformity primarily limited to the central portion of L5 with retropulsion of the posterior cortex. Retropulsion results in residual 12 mm of AP diameter of the thecal sac. A mild compression deformity is also evident along the superior endplate of L1 associated with the abnormal T1 signal intensity. No compression deformity at the L2 lesion, which is evident along the right aspect of the vertebral body posteriorly and extending into the right pedicle. Remainder of the vertebral bodies demonstrate normal height, alignment, and bone marrow signal intensity. Mild intervertebral disc desiccation in the mid lumbar spine. A level by level analysis is also given below: L1-2: No significant spinal canal or neural foraminal narrowing. L2-3: No significant spinal canal or neural foraminal narrowing. L3-4: No significant spinal canal narrowing. Eccentric disc bulge results in mild bilateral neural foraminal narrowing. L4-5: Facet arthropathy. Eccentric disc bulge at the right posterolateral aspect potentially with an associated annular fissure. As results in moderate to severe right neural foraminal narrowing. Possible mass effect on the exiting right L4 nerve root. Mild left neural foraminal narrowing. No significant spinal canal narrowing. L5-S1: Retropulsed L5 vertebral body with possible cortical disruption. Moderate effacement of the spinal canal at this level as well as mass effect on the exiting left L5 nerve root. Facet arthropathy. Moderate right and mild left neural foraminal narrowing. Spinal cord terminates in good position at L1. Cauda equina normal in morphology. No paraspinal muscle edema. Nonspecific subcutaneous edema in the lumbar region. A voids within the vasculature preserved. Fatty atrophy of paraspinal musculature likely age-related. IMPRESSION: 1. T1 hypointense abnormal bone marrow signal at L1, L2, and L5. The configuration at L1 could suggest an acute compression deformity or acute Schmorl's node, and the configuration at L5 could suggest an acute compression fracture with retropulsion of the posterior cortex. However, the configuration of the lesion at L2 is not compatible with acute osseous injury. This is highly suspicious for a metastatic lesion. Recommend nuclear medicine bone scan and correlation with PSA. The abnormal bone marrow signal at L1 and L5 may also represent metastatic lesions. 2. Central predominant compression deformity of L5 with retropulsion of the posterior cortex and significant mass effect on the exiting left L5 nerve root. CT abd pelvis wo con CLINICAL HISTORY: 64 years-old Male presenting with abd/back pain, osseous metastases, multiple fractures. TECHNIQUE: Multidetector CT of the abdomen and pelvis was performed without the use of intravenous contrast. IV contrast: None. One or more dose lowering techniques were used consistent with the principles of ALARA (as low as reasonably achievable), including automatic exposure control, mA or kV adjustment to individual patient size, and/or use of iterative reconstruction. COMPARISON: Lumbar spine MRI from 04/23/2019. CT DOSE (mGy.cm): The estimated cumulative dose is 1712.20 mGy.cm. FINDINGS: Certified Maintenance Welder topogram: Unremarkable. Lung bases: Aortic valve calcification. Normal heart size. No pericardial or pleural effusion. Dependent bandlike opacities at the right lung base likely atelectasis. Underlying pulmonary cysts or emphysema with significant involvement of the lung bases. Liver: Nodular morphology of the liver with multiple underlying lesions. These are new from prior exam. Density consistent with hepatic steatosis. Biliary: No gross biliary ductal dilatation allowing for noncontrast technique. Normal gallbladder. Pancreas: Mild parenchymal atrophy. Spleen: Normal noncontrast appearance. Adrenal glands: Normal noncontrast appearance. Kidneys and ureters: Normal noncontrast appearance. No nephrolithiasis. No hydronephrosis. Normal ureters. Bladder: Circumferential bladder wall thickening. Pelvic organs: TURP defect suggested. Bowel: Mild diverticulosis of the descending colon without wall thickening or pericolonic inflammatory change. The appendix is normal. No bowel obstruction. Peritoneal cavity: No free fluid or intraperitoneal gas. Lymph nodes: No gross lymphadenopathy allowing for noncontrast technique. Vasculature: Atherosclerosis of the normal caliber abdominal aorta. Abdominal wall: Infiltration of the left lateral abdominal wall subcutaneous tissue and left flank. No subcutaneous hematoma. Musculoskeletal: Degenerative changes of the spine. Significant central predominant endplate compression deformity of L5. This may also have a slight burst fracture appearance. Retropulsion of the posterior cortex of L5 with moderate effacement of the spinal canal at this level. This has worsened from the prior MRI. Lytic lesion noted in the posterior right eighth rib lucent lesions also noted in the pelvis and the bilateral zoya and potentially in L1. The lesion in L2 evident on MRI is minimally apparent. IMPRESSION: 1. Findings highly suggestive of hepatic and osseous metastatic disease. The primary site of malignancy is not clearly demonstrated. Consider outpatient PET/CT for further evaluation. 2. Burst type compression deformity of L5 with worsened retropulsion of the posterior cortex and worsened spinal canal effacement, now moderate in severity. 3. Mild diverticulosis. No diverticulitis. 4. Underlying emphysema or cystic lung disease. Time Spent Attending This documentation has been prepared in full by Dr. Napier who personally performed the services described and have reviewed the documentation to ensure its accuracy. I spent 40 minutes with direct face to face interaction with the patient which included obtaining clinical information, performing a physical exam, recommending a plan of action, review of scans and answering questions. LEORA
--- NOTE | 2019-06-15 18:39 | Hospitalist Progress Note ---
Date of Service June 15, 2019 Assessment & Plan (1) Malignant neoplasm of gastroesophageal junction: (2) Pathologic compression fracture of lumbar vertebra: (3) Metastatic cancer to spine: (4) Intractable back pain: Pt was sent from oncology office for worsening metastasis bone pain CT abd/pelvis showed highly suggestive of hepatic and osseous metastatic disease. Burst type compression deformity of L5 with worsened retropulsion of the posterior cortex and worsened spinal canal effacement, now moderate in severity. Continue Fentanyl patch Pain management on board started on Morphine BLOG WRITER for now to help to calculate how much opioid pt will require Recommend continuation of OxyIR on a as needed basis, starting on Cymbalta 30 mg p.o and will add baclofen prn for spasm No intervention procedure as per pain pain management Radiation oncology consulted Continue monitor closely (5) Constipation: Has not had a BM about 3 days Continue Miralax and Senokot for now If no BM today, will consider Relistor x1 tomorrow Cellulitis RLE Erythema/Swelling Doppler of LE showed no evidence of DVT WBC 13K on admission No evidence of sepsis ( Temp was 38.2 and HR high on admission, pt said that he was crying in pain, frustrated, work up and sweating) Procalcitonin and lactate WNL WBC back to normal Continue doxycycline Monitor CBC CKD 3 Creatinine has been fluctuated outpatient to 1.8, 1.5, 1.7, 2.2, 1.8 Creatinine 1.87 today Avoid nephrotoxic agents Monitor BMP Cardiomyopathy Last ECHO showed reduced EF btw 35-40% Continue metoprolol 25mg BID Stable Hx Atrial fibrillation Rate controlled on NSR on metoprolol Stable DVT px on heparin subq Code Status Full Code Admission and Anticipated Discharge Date Admission Date: June 14, 2019 Subjective Pt was seen and examined Lying in bed with no distress with at bedside Pt said that pain is a little better with the BLOG WRITER pump on board He said that pain seems to get worst when he is the seating position Pt said that he did not have any fever when he came to the ER He said that he was in so much pain in the ER, crying a lot and sweating that causes his HR and his temp to be high He said that he only had 1 temp 38.2 on admission, then every other temp was normal Denies any chest pain, palpitation, dizziness and SOB Physical Exam Physical Exam: General- No acute distress Head- atraumatic Eyes- PERRL, EOMI, ENT- oropharynx clear Neck- supple, no JVD Lungs- clear to auscultation Heart- regular rhythm; no murmur Abdomen- normal bowel sounds, soft, nontender Extremities- Erythema in RLE with open skin abrasion, no drainage Neuro- alert, oriented x 3; PERRL, EOMI; no facial palsy; no dysarthria Skin- warm & dry Results & Data ([facility]) Vital Signs (Past 12 Hours) Vital Signs Temp Pulse Pulse Resp BP Pulse Ox 06/15/19 16:05 92 H 06/15/19 15:35 37.0 C 85 21 125/80 93 06/15/19 11:32 36.8 C 90 18 113/76 94 06/15/19 11:15 95 H 15 136/88 94 06/15/19 10:44 94 H 06/15/19 10:15 92 H 15 138/86 94 06/15/19 09:30 87 15 136/82 95 06/15/19 08:30 88 16 138/87 96 06/15/19 07:24 36.8 C 95 H 18 146/92 H 92
[2019-06-16] MEDS: HEPARIN SOD 5,000 UNIT/0.5 ML VIAL SQ SCH ×3 (05:05→19:37)
[2019-06-16] MEDS: METOPROLOL SUCC 25MG EXT REL TAB PO SCH ×2 (06:17→19:36)
[2019-06-16] MEDS: MORPHINE SULFATE PCA 30 MG/30 ML IV PRN ×4 (07:21→23:01)
[2019-06-16] MEDS: CHECK FENTANYL PATCH PLACEMENT SCH ×2 (07:53→16:46)
[2019-06-16] MEDS: SODIUM CHLORIDE 0.9% 1000ML 1,000 ML IV SCH (07:53)
[2019-06-16] MEDS: DULOXETINE HCL 30 MG CAP PO SCH (07:54)
[2019-06-16] MEDS: POLYETHYLENE (MIRALAX) 17 GM PACK PO SCH (07:54)
[2019-06-16] MEDS: DOCUSATE SODIUM/SENNA 50/8.6MG TAB PO SCH ×2 (07:54→19:36)
[2019-06-16] MEDS: GABAPENTIN 300 MG CAP PO SCH ×3 (07:54→19:36)
[2019-06-16] MEDS: DOXYCYCLINE HYCLATE 100 MG CAP PO SCH ×2 (07:55→19:37)
--- NOTE | 2019-06-16 08:38 | Pain Management Progress Note ---
Date of Service June 16, 2019 Assessment & Plan (1) Malignant neoplasm of gastroesophageal junction: 1. Fentanyl patch will be adjusted to 25 mcg every 72 hours based on use of IV LACE AND TEXTILES RESTORER morphine of 11 mg over the past 24 hours. We will recalculate in 24 hours and consider further adjustment of fentanyl patch based on use of IV morphine. 2. Recommend continuation of OxyIR on a as needed basis. 3. Maintain Cymbalta 30 mg p.o. every morning to augment descending pain regulation. 4. Continue utilization of heat to minimize spasm as well as baclofen 10 mg p.o. 3 times daily PRN. 5. Bowel regimen appears to be effective at this time-recommend continuation 6. We discussed anticipation of movement out of bed activities today with simulation for radiation and the potential for radiation. We discussed use of LACE AND TEXTILES RESTORER morphine. He may also utilize OxyIR prior to anticipated movement. 7. Will continue to follow during this admission. Present on Admission?: Yes (2) Metastatic cancer to spine: Present on Admission?: Yes (3) Cancer associated pain: Present on Admission?: Yes (4) Pathologic compression fracture of lumbar vertebra: Present on Admission?: Yes (5) Anxiety: Present on Admission?: Yes (6) Severe sepsis: Present on Admission?: Yes (7) Constipation: Present on Admission?: Yes Subjective Mr. 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 Patient was admitted by outpatient oncology service for pain control and radiation therapy. Patient will undergo simulation for radiation today and potentially start radiation later today or tomorrow. The patient's predominant pain generator means the hip and pelvic region which can then travel into the bilateral lower extremities to the feet which he describes as sharp and burning characteristic pain. He reports his pain is minimal in the supine position currently rating his pain at a 2-3/10. His pain can escalate quickly to an 8- 9/10 with movement. Patient has been utilizing LACE AND TEXTILES RESTORER morphine over the past 24 hours utilizing 11 mg. The patient is reporting no significant change in his severity of pain with the LACE AND TEXTILES RESTORER morphine with his movement activities. His pain is improved in the supine or still position. He has not noticed any potential side effects at this time from the morphine. Patient did have bowel movement x2 last evening. He denies generalized abdominal pain at this time. He has no further constitutional complaints. Plan of care discussed with Dr. Bailey Banegas. Pain Assessment Pain Assessment Full Body Front + Back: 1. Pelvic/hip 2. Left lower extremity to the foot in nondermatomal pattern 3. Right lower extremity to the foot in nondermatomal pattern 4. Generalized pelvic/hip region Pain scale - at its best (0-10): 3 Pain scale - at its worst (0-10): 9 Physical Exam Physical Exam: General: Patient was sleeping upon entering the room. He was awakened and arousable. Speech and thought process appropriate. No acute distress. Patient lying supine. Abdomen: Soft and nondistended. Nontender to palpation. No rebound or guarding. Lower extremities: No evidence of edema, erythema or skin breakdown. Neurologic: Cranial nerves grossly intact but ambulation not witnessed.
[2019-06-16] MEDS ORDERED: fentaNYL 25 MCG/HR TDSY TD SCH (09:00)
[2019-06-16] MEDS ORDERED: POLYETHYLENE (MIRALAX) 17 GM PACK PO PRN (09:32)
--- NOTE | 2019-06-16 09:32 | Hospitalist Progress Note ---
Date of Service June 16, 2019 Assessment & Plan (1) Malignant neoplasm of gastroesophageal junction: (2) Pathologic compression fracture of lumbar vertebra: (3) Metastatic cancer to spine: (4) Intractable back pain: Pt was sent from oncology office for worsening metastasis bone pain CT abd/pelvis showed highly suggestive of hepatic and osseous metastatic disease. Burst type compression deformity of L5 with worsened retropulsion of the posterior cortex and worsened spinal canal effacement, now moderate in severity. Continue Fentanyl patch per pain management recs Currently on morphine VEGETABLE SPECKER with pain management on board to determine optimum opioid requirement Continuation of OxyIR on as needed basis, starting on Cymbalta 30 mg p.o and baclofen prn for spasm No intervention procedure as per pain pain management Planned for CT simulation today by rad onc prior to radiotherapy (5) Constipation: Constipation resolved Continue bowel regimen to ensure at least daily bowel movement (3)Leg erythema Bilateral leg erythema, nontender Reports leg erythema and swelling is chronic ?Stasis dermatitis vs cellulitis Doppler of LE showed no evidence of DVT WBC 13K on admission now 8.5K No evidence of sepsis (Temp was 38.2 and HR high on admission, pt said that he was crying in pain, frustrated, work up and sweating) Procalcitonin and lactate WNL Currently on doxycycline Monitor CBC (4) CKD 3 Creatinine has been fluctuating outpatient to 1.8, 1.5, 1.7, 2.2, 1.8 Creatinine 1.21 today Avoid nephrotoxic agents Monitor BMP (5) Cardiomyopathy Last ECHO from 06/2018 showed reduced EF btw 35-40% Continue metoprolol 25mg BID Stable (6) Hx Atrial fibrillation Rate controlled Physical exam has regular rate and rhythm Stable DVT px on heparin subq Code Status Full Code (6) Leg erythema: Admission and Anticipated Discharge Date Admission Date: June 14, 2019 Subjective Reports his back, bilateral hip and leg pains got worse this morning when he was moving to use the bathroom. Currently on VEGETABLE SPECKER. Reports pain is about 3.5/10 right now He reported he had many bowel movements since yesterday and will like adjustments in the laxative Review of Systems Constitutional: no fever and no chills Eyes: no problem reported Ear, Nose, Mouth, Throat: no problem reported Respiratory: no cough, no chest congestion, no dyspnea and no wheezing Cardiovascular: no chest pain and no dyspnea at rest Gastrointestinal: + diarrhea/loose stools; no heartburn, no nausea, no vomiting and no dysphagia Genitourinary: no problem reported Musculoskeletal: + back pain (Low back pain), + radicular pain (Reports pain radiating from left hip to left foot, sharp) and + joint pain (Bilateral) Integumentary: Erythema on both mata Neurologic: no problem reported Psychiatric: no problem reported Physical Exam Physical Exam: General: Well nourished, well hydrated, no acute distress and not ill appearing Eyes: PERRL, conjunctivae normal, not pale, anicteric sclerae, EOM intact bilaterally ENMT: External ear and nose normal, oropharynx normal Neck: Normal visual inspection, no tracheal deviation, no swelling noted Respiratory: Normal respiratory effort, no respiratory distress, lungs clear to auscultation, no crackles and no wheezes Cardiovascular: Pulse is RRR. S1 S2, bilateral pitting edema Gastrointestinal (Abdomen): Abdomen is not distended, soft, non-tender to palpation, no guarding, no palpable hepatosplenomegaly, normal bowel sounds Musculoskeletal: No cyanosis or clubbing, all extremities motor strength 5/5 Genitourinary: No suprapubic tenderness Skin: Bilateral erythema on lower leg, nontender Neurologic: Alert and oriented x 3, No focal weakness, sensation grossly intact Psychiatric: Euthymic affect, no depressed affect Results & Data ([facility]) Vital Signs (Past 12 Hours) Vital Signs Temp Pulse Pulse Resp BP BP Pulse Ox 06/16/19 08:07 86 157/100 H 06/16/19 07:38 36.5 C 90 20 173/102 H 173/104 H 93 06/16/19 03:15 36.7 C 72 20 165/105 H 93 06/15/19 23:05 36.8 C 89 20 156/93 H 94 06/15/19 23:00 86
[2019-06-16 10:12] LABS: Hematocrit (blood only) 34.5 % (42-52); Hemoglobin 11.3 g/dL (14.0-18.0); Mean Corpuscular Hemoglobin 27.5 pg (25-34); Mean Corpuscular Hgb Conc 32.8 g/dL (32-36); Mean Corpuscular Volume 83.9 fL (80-100); Mean Platelet Volume 9.1 fL (7.4-10.4); Platelet Count 377 K/uL (130-400); RDW Coefficient of Variation 14.7 % (11.5-14.5); RDW Standard Deviation 45.1 fL (36.4-46.3); Red Blood Count 4.11 M/uL (4.7-6.1); White Blood Count 8.51 K/uL (4.8-10.8)
[2019-06-16 10:30] LABS: BUN Creatinine Ratio 8.9 (10-20); Calcium 8.7 mg/dl (8.5-10.1); Creatinine Clr Calc Pharmacy 94.9 ml/min; Est GFR (African American) 73.4; Est GFR (Non-African American) 63.3; Potassium 3.7 mmol/L (3.5-5.1)
[2019-06-16] MEDS: HYDROXYCHLOROQUINE SULFATE 200 MG TAB PO SCH (13:26)
[2019-06-17] MEDS: CHECK FENTANYL PATCH PLACEMENT SCH ×4 (01:13→23:33)
[2019-06-17] MEDS: HEPARIN SOD 5,000 UNIT/0.5 ML VIAL SQ SCH ×3 (05:48→20:23)
[2019-06-17] MEDS: SODIUM CHLORIDE 0.9% 1000ML 1,000 ML IV SCH (08:32)
[2019-06-17] MEDS: DOCUSATE SODIUM/SENNA 50/8.6MG TAB PO SCH ×2 (08:32→20:23)
[2019-06-17] MEDS: GABAPENTIN 300 MG CAP PO SCH ×3 (08:32→20:22)
[2019-06-17] MEDS: DOXYCYCLINE HYCLATE 100 MG CAP PO SCH ×2 (08:32→20:23)
[2019-06-17] MEDS: METOPROLOL SUCC 25MG EXT REL TAB PO SCH ×2 (08:33→20:23)
[2019-06-17] MEDS: DULOXETINE HCL 30 MG CAP PO SCH (08:33)
[2019-06-17 08:41] LABS: Hematocrit (blood only) 36.6 % (42-52); Hemoglobin 12.1 g/dL (14.0-18.0); Mean Corpuscular Hemoglobin 27.8 pg (25-34); Mean Corpuscular Hgb Conc 33.1 g/dL (32-36); Mean Corpuscular Volume 83.9 fL (80-100); Mean Platelet Volume 9.6 fL (7.4-10.4); Platelet Count 416 K/uL (130-400); RDW Coefficient of Variation 14.4 % (11.5-14.5); RDW Standard Deviation 44.1 fL (36.4-46.3); Red Blood Count 4.36 M/uL (4.7-6.1); White Blood Count 9.13 K/uL (4.8-10.8)
[2019-06-17] MEDS ORDERED: MoRPHine SULFATE 2 MG/ML CARP IV PRN (08:43)
--- NOTE | 2019-06-17 08:46 | Pain Management Progress Note ---
Date of Service June 17, 2019 Assessment & Plan (1) Malignant neoplasm of gastroesophageal junction: (2) Pathologic compression fracture of lumbar vertebra: 1. Fentanyl patch was increased to 37mcg/hr. 2. He will use oral Oxycodone 5mg x 4 hours PRN pain. 3. Morphine SLASHER MACHINE OPERATOR was discontinued. 4. He will be placed on Morphine 4mg IV x 4 hours for severe pain that is not controlled by Oxycodone. 5. Continue Cymbalta 30mg daily. 6. May need further dosage adjustments of Fentanyl patch and Oxycodone pending his response to the changes made today. Subjective Mr. Alvarez is a 64 year old male with gastroesophageal junction adenocarcinoma with extensive metastatic disease to the bone and liver. Patient's predominant pain complaint is in the pelvis which will intermittently shoot pain down the posterior legs. Pain is minimal when lying supine and rated 7/10 with movement. Patient has utilized the SLASHER MACHINE OPERATOR morphine and does express frustration with alarms, not being very efficacious towards diminishing his pain, and confusion on the SLASHER MACHINE OPERATOR in general. He has used 25mg of IV Morphine over the past 24 hours and report mild pain relief. Patient has tolerated Fentanyl patch increase to 25mcg without any difficulty. He has not used oral Oxycodone since 06/15/19. He did previously find Oxycodone to provide mild pain relief. Case discussed with Dr. Bailey Banegas Pain Assessment Pain Assessment Full Body Front + Back: 1. 2. 3. [facility] Combined Pain Scale: 7-Severe - Pain prevents productive activity. Impossible to tolerate. Physical Exam Physical Exam: General: This is a 64 year old white male. Does not appear in any acute distress. Head/face: Normocephalic and atraumatic. Eyes: No drainage or conjunctival injection. ENT: Nose without bleeding or discharge. Oral mucosa moist. Respiratory: Patient with unlabored breathing. No signs of respiratory distress. Chest/Axilla: Chest movement symmetrical. No deformities noted. Back: Mild pain with movement. Skin: [place], warm and dry. No rash noted. MS/Extremity: Moving extremities appropriately. Neuro: Alert and appears oriented. Speech is fluent. Cranial Nerves are grossly intact.
[2019-06-17 08:54] LABS: BUN Creatinine Ratio 7.3 (10-20); Calcium 9.4 mg/dl (8.5-10.1); Creatinine Clr Calc Pharmacy 103.1 ml/min; Est GFR (African American) 83.3; Est GFR (Non-African American) 71.9; Potassium 3.5 mmol/L (3.5-5.1)
[2019-06-17] MEDS ORDERED: fentaNYL 25 MCG/HR TDSY TD SCH (09:00)
--- NOTE | 2019-06-17 10:29 | Hospitalist Progress Note ---
Date of Service June 17, 2019 Assessment & Plan (1) Malignant neoplasm of gastroesophageal junction: (2) Pathologic compression fracture of lumbar vertebra: (3) Metastatic cancer to spine: (4) Intractable back pain: Pt was sent from oncology office for worsening metastasis bone pain CT abd/pelvis showed highly suggestive of hepatic and osseous metastatic disease. Burst type compression deformity of L5 with worsened retropulsion of the posterior cortex and worsened spinal canal effacement, now moderate in severity. Continue Fentanyl patch now increased to 37mcg per pain management recs Off morphine POLICE RECORDS CLERK Continuation of OxyIR on as needed basis, Continue Cymbalta 30 mg p.o and baclofen prn for spasm Got CT simulation yesterday and planned to start radiotherapy Will get PT evaluation today to aid in planning discharge (5) Constipation: Constipation resolved Continue bowel regimen (3)Leg erythema Bilateral leg erythema, nontender Right leg cellulitis per history from Doppler of LE showed no evidence of DVT WBC 13K on admission now 9K No evidence of sepsis (Temp was 38.2 and HR high on admission, pt said that he was crying in pain, frustrated, work up and sweating) Procalcitonin and lactate WNL Will continue doxycycline to complete 5 day treatment (4) CKD 3 Creatinine has been fluctuating outpatient to 1.8, 1.5, 1.7, 2.2, 1.8 Creatinine 1.09 today Avoid nephrotoxic agents Monitor BMP (5) Cardiomyopathy Last ECHO from 06/2018 showed reduced EF btw 35-40% Continue metoprolol 25mg BID Stable (6) Hx Atrial fibrillation Rate controlled Physical exam has regular rate and rhythm Stable DVT px on heparin subq Code Status Full Code (6) Leg erythema: Admission and Anticipated Discharge Date Admission Date: June 14, 2019 Subjective Patient seen and examined with at bedside Reports his pain is much better controlled today. Morphine POLICE RECORDS CLERK has been discontinued. Fentanyl was increased. Got CT simulation yesterday and planned to start radiation therapy today. who was at bedside reported that patient did have increased erythema of right leg prior to admission which is much improved now Physical Exam Physical Exam: General: Well nourished, well hydrated, no acute distress and not ill appearing Eyes: PERRL, conjunctivae normal, not pale, anicteric sclerae, EOM intact bilaterally ENMT: External ear and nose normal, oropharynx normal Neck: Normal visual inspection, no tracheal deviation, no swelling noted Respiratory: Normal respiratory effort, no respiratory distress, lungs clear to auscultation, no crackles and no wheezes Cardiovascular: Pulse is RRR. S1 S2, bilateral pitting edema Gastrointestinal (Abdomen): Abdomen is not distended, soft, non-tender to palpation, no guarding, no palpable hepatosplenomegaly, normal bowel sounds Musculoskeletal: No cyanosis or clubbing, all extremities motor strength 5/5 Genitourinary: No suprapubic tenderness Skin: Bilateral erythema on lower leg, nontender. some scabs on right leg. Neurologic: Alert and oriented x 3, Appears generally weak, No focal weakness, sensation grossly intact Psychiatric: Euthymic affect, no depressed affect Results & Data ([facility]) Vital Signs (Past 12 Hours) Vital Signs Temp Pulse Pulse Resp BP BP Pulse Ox 06/17/19 07:53 36.6 C 96 H 20 152/92 H 174/106 H 94 06/17/19 07:29 92 H 06/17/19 04:00 36.9 C 78 20 162/102 H 95 06/17/19 01:17 86 06/16/19 22:57 36.6 C 82 20 161/100 H 93 Laboratory Results Laboratory Results - last 24 hr 06/16/19 06/17/19 06/17/19 09:56 07:44 07:44 WBC 9.13 RBC 4.36 L Hgb 12.1 L Hct 36.6 L MCV 83.9 MCH 27.8 MCHC 33.1 RDW Std Deviation 44.1 RDW Coeff of Arlyn 14.4 Plt Count 416 H MPV 9.6 Sodium 134 L 135 L Potassium 3.7 3.5 Chloride 100 101 Carbon Dioxide 28 27 Anion Gap 6.0 7.0 BUN 11 8 Creatinine 1.21 D 1.09 Est Cr Clr Drug Dosing 94.9 103.1 Est GFR ( Amer) 73.4 83.3 Est GFR (Non-Af Amer) 63.3 71.9 BUN/Creatinine Ratio 8.9 L 7.3 L Glucose 97 84 Calcium 8.7 9.4
[2019-06-17] MEDS: MoRPHine SULFATE 2 MG/ML CARP IV PRN ×3 (10:53→20:29)
[2019-06-17] MEDS: HYDROXYCHLOROQUINE SULFATE 200 MG TAB PO SCH (10:53)
[2019-06-17] MEDS: OXYCODONE HCL IR 5 MG TAB (IMMEDIATE RELEASE) PO PRN (11:30)
--- NOTE | 2019-06-17 16:05 | Palliative Care Consultation ---
Date of Consultation June 17, 2019 Assessment & Plan (1) Palliative care encounter: Patient is a 64-year-old male with a past medical history of hypertension, RA-on Plaquenil, chronic lower extremity lymphedema who was recently diagnosed this past June with cardiomyopathy-EF 30% who presented this past March with back pain with radiation to both hips. Patient underwent MRI which showed multiple compression fractures and bone lesions. A CT scan showed liver lesions consistent with metastatic disease. Patient underwent outpatient EGD on 05/31 and was found to have a fungating mass at the GE junction. Patient diagnosed with stage IV esophageal cancer. Patient was in his oncologist office on 06/14 with intractable pain and was sent to the emergency room. Patient was admitted and placed on morphine CHILD CENTER ASSISTANT-he has now been transitioned to fentanyl patch plus as needed oxycodone with occasional PRN IV morphine. Patient is only required 1 PRN oxycodone at 5 mg and 2 PRN IV morphine at 4 mg each dose in the past 24 hours. Patient continues to have episodes of severe pain. He was also started on Cymbalta. Patient reports he was given an outpatient palliative clinic appointment in [place]-it had to be canceled due to this admission. Patient reports that most of his care is here at [facility] and that follow-up in [place] is more convenient than [place]. Patient given brochure and information to make an outpatient follow-up appointment in the palliative care clinic located in the [facility]. Patient's pain is currently being managed by pain management-they can continue to manage his pain or if they prefer I can provide follow-up in palliative cl in. Patient seen and examined, no family at bedside. Patient having severe spasms and pain with nausea-unable to participate in any meaningful conversation. -Intractable pain-being managed by pain management. Can follow-up as outpatient with pain management or in palliative care clinic -Patient given information to follow-up with palliative care clinic-can discuss goals of care and advance care planning at that time -Cardiomyopathy-EF 30%, patient followed by cardiology, cardiac cath showed mild CAD on 07/10/2018 -Esophageal carcinoma-stage IV, follow-up with oncology. (2) Intractable back pain: (3) Cardiomyopathy: (4) Malignant neoplasm of gastroesophageal junction: History of Present Illness Reason for Consultation: Assist with establishing outpatient palliative follow- up Requesting Physician: Dr Cole Attending Physician: Sheryl Cole MD History of Present Illness Patient is a 64-year-old male with a past medical history of hypertension, RA-on Plaquenil, chronic lower extremity lymphedema who was recently diagnosed this past June with cardiomyopathy-EF 30% who presented this past March with back pain with radiation to both hips. Patient underwent MRI which showed multiple compression fractures and bone lesions. A CT scan showed liver lesions consistent with metastatic disease. Patient underwent outpatient EGD on 05/31 and was found to have a fungating mass at the GE junction. Patient diagnosed with stage IV esophageal cancer. Patient was in his oncologist office on 06/14 with intractable pain and was sent to the emergency room. Patient was admitted and placed on morphine CHILD CENTER ASSISTANT-he has now been transitioned to fentanyl patch plus as needed oxycodone with occasional PRN IV morphine. Patient is only required 1 PRN oxycodone at 5 mg and 2 PRN IV morphine at 4 mg each dose in the past 24 hours. Patient continues to have episodes of severe pain. He was also started on Cymbalta. Patient reports he was given an outpatient palliative clinic appointment in [place]-it had to be canceled due to this admission. Patient reports that most of his care is here at [facility] and that follow-up in [place] is more convenient than [place]. Patient given brochure and information to make an outpatient follow-up appointment in the palliative care clinic located in the [facility]. Patient's pain is currently being managed by pain management-they can continue to manage his pain or if they prefer I can provide follow-up in palliative clinic. Patient seen and examined, no family at bedside. Patient having severe spasms and pain with nausea-unable to participate in any meaningful conversation. Allergies Allergy/AdvReac Type Severity Reaction Status Date / Time No Known Allergies Allergy Unverified 06/14/19 19:15 Home Medications Home Medications Medication Instructions Recorded Confirmed Type gabapentin 300 mg PO TID 06/14/19 06/14/19 History hydroxychloroquine 400 mg PO .DAILY@NOON 06/14/19 06/14/19 History metoprolol succinate 25 mg PO BID 06/14/19 06/14/19 History oxycodone 15 mg PO Q6 PRN 06/14/19 06/14/19 History Patient History Medical History Acute hypoxemic respiratory failure Anxiety Atrial fibrillation with rapid ventricular response Atypical chest pain (Acute) Cancer associated pain (Inactive) Cardiomyopathy Constipation Elevated troponin (Acute) Malignant neoplasm of gastroesophageal junction Metastatic cancer to spine (Inactive) Pathologic compression fracture of lumbar vertebra L5 with retropulsion Pneumonia (Acute) Rheumatoid arthritis Social History Preferred Language: Citizen Of [place] Communication Ability: Effective Federal Law Clerk Required: No Beliefs That Will Affect Care: None Current Living Situation: Spouse Feels Safe at Home: Yes Smoking Status: Never smoker Second Hand Exposure: No ; Hx Alcohol Use: No Hx Substance Use: No Review of Systems Review of Systems: Positive for pain and nausea Physical Exam Physical Exam: Patient in moderate to severe distress due to pain and spasms HEENT: EOMI, hearing within normal limits Respiratory: Clear breath sounds CV: Regular rate Abdomen: Soft, nontender Extremities: Positive edema Neuro: Alert and oriented x4 Results & Data Vital Signs (Past 12 Hours) Vital Signs Temp Pulse Pulse Resp BP BP Pulse Ox 06/17/19 15:14 97.9 F 91 H 20 150/95 H 91 06/17/19 07:53 97.9 F 96 H 20 152/92 H 174/106 H 94 06/17/19 07:29 92 H 06/17/19 04:00 98.4 F 78 20 162/102 H 95 PG Care Time/CCT Total # of Minutes Spent Total Time Spent with Patient: Total time spent 55 minutes with greater than 50% of the time spent at bedside assessing patient's current condition and presenting outpatient follow-up options. Coding Level of Care Code 92839 Inpt Consult Level 2 Diagnoses Palliative care encounter Z51.5 Intractable back pain M54.9 Cardiomyopathy I42.9 Malignant neoplasm of gastroesophageal junction C16.0 Time Spent (min) 55
[2019-06-18] MEDS ORDERED: cloNIDine HCL 0.1 MG TAB PO ONE ×2 (03:24→05:26)
[2019-06-18] MEDS: OXYCODONE HCL IR 5 MG TAB (IMMEDIATE RELEASE) PO PRN (04:32)
[2019-06-18] MEDS: HEPARIN SOD 5,000 UNIT/0.5 ML VIAL SQ SCH ×2 (05:05→14:45)
[2019-06-18] MEDS: MoRPHine SULFATE 2 MG/ML CARP IV PRN (07:17)
[2019-06-18] MEDS: METOPROLOL SUCC 25MG EXT REL TAB PO SCH (08:10)
[2019-06-18] MEDS: GABAPENTIN 300 MG CAP PO SCH ×2 (08:10→13:53)
[2019-06-18] MEDS: DULOXETINE HCL 30 MG CAP PO SCH (08:10)
[2019-06-18] MEDS: DOXYCYCLINE HYCLATE 100 MG CAP PO SCH (08:10)
[2019-06-18] MEDS: CHECK FENTANYL PATCH PLACEMENT SCH ×2 (08:10→15:44)
[2019-06-18] MEDS: DOCUSATE SODIUM/SENNA 50/8.6MG TAB PO SCH (08:10)
[2019-06-18] MEDS ORDERED: MoRPHine SULFATE IR 15 MG TAB (IMMEDIATE RELEASE) PO PRN (08:34)
--- NOTE | 2019-06-18 11:08 | Discharge Summary ---
Date of Service June 18, 2019 Admission HPI Per Admitting Provider History obtained from patient, family, and records. Medical history significant for new diagnosis of metastatic GE junction adenocarcinoma, chronic systolic heart failure secondary to Nonischemic cardiomyopathy (EF 35 to 40%, TTE 2018), PAF currently off anticoagulation, rheumatoid arthritis, chronic LE lymphedema, CRI (baseline creatinine 1.5), chronic anemia (baseline hemoglobin 12), past tobacco abuse. Recent confinement June 2018 for new diagnosis of heart failure. Paroxysmal A. fib noted during confinement. Patient discharged on Eliquis for anticoagulation. Eliquis discontinued a few months later by stock room manager after outpatient telemetry did not show recurrent AF. Patient seen at the ER last March 2019 for back pain with radiation to the hips. MRI showed multiple compression fractures as well as several lesions consistent with bone mets. Additional outpatient CT imaging in the subsequent months showed metastatic liver lesions and multifocal osteoblastic/osteolytic bone mets. Outpatient EGD 2 weeks ago disclosed a mass on the lower third of esophagus/GE junction. Subsequent pathology showed moderately differentiated adenocarcinoma. Worsening pelvic pain with usual leg weakness with trouble standing up the last 2 weeks. No unusual incontinence symptoms. Home medications barely helping for the pain. Some right leg swelling noted a few days ago after a blistering wound. Some chills. No unusual chest pain, S OB, cough symptoms. Patient seen at [facility] Oncology office this afternoon. Patient directed to ER for admission for pain control. 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 Admission Exam Per Admitting Provider GENERAL: Slightly uncomfortable, morbidly obese, no respiratory distress SKIN: Pallor , warm HEENT: Pale palpebral conjunctivae, no ptosis, dry buccal mucosa NECK : Supple, short neck, no tenderness CHEST : Decreased breath sounds , no tenderness HEART : Tachycardic , no obvious murmurs ABDOMEN: Some distention, minimal hypogastric tenderness BACK : Minimal low back tenderness, negative straight leg raise test EXTREMITIES : Erythematous swelling RLE with abraded skin on the lateral aspect, minimal RLE tenderness NEUROLOGIC : Coherent, no facial asymmetry, no other gross focality Principal Diagnosis (1) Malignant neoplasm of gastroesophageal junction: (2) Pathologic compression fracture of lumbar vertebra: (3) Metastatic cancer to spine: (4) Intractable back pain (5) Right leg cellulitis (6) Acute kidney injury on CKD3 Discharge Exam General: Well nourished, well hydrated, no acute distress and not ill appearing Eyes: PERRL, conjunctivae normal, not pale, anicteric sclerae, EOM intact bilaterally ENMT: External ear and nose normal, oropharynx normal Neck: Normal visual inspection, no tracheal deviation, no swelling noted Respiratory: Normal respiratory effort, no respiratory distress, lungs clear to auscultation, no crackles and no wheezes Cardiovascular: Pulse is RRR. S1 S2 Gastrointestinal (Abdomen): Abdomen is not distended, soft, non-tender to palpation, no guarding, no palpable hepatosplenomegaly, normal bowel sounds Musculoskeletal: No cyanosis or clubbing, all extremities motor strength 5/5 Genitourinary: No suprapubic tenderness Skin: Erythema on lower right leg improved, nontender. some scabs on right leg. Neurologic: Alert and oriented x 3, No focal weakness, sensation grossly intact Psychiatric: Euthymic affect Discharge Data Allergies Allergy/AdvReac Type Severity Reaction Status Date / Time No Known Allergies Allergy Unverified 06/14/19 19:15 Consultations 06/14/19 19:36 ED Decision to Admit Stat 06/14/19 23:13 Consult Pain Management Routine Consult Radiation Oncology Routine 06/17/19 08:16 Consult Palliative Care Routine Ordered Studies 06/14/19 20:09 CT abd pelvis wo con Urgent ADDENDUM Images were further reviewed in conjunction with Dr. Napier on 06/16/2019. The patient has a new diagnosis of carcinoma the level of the distal esophagus/gastroesophageal junction. Mild circumferential distal esophageal wall thickening at the level of the gastroesophageal junction was noted. No infiltration of surrounding fat. There is a pathologically enlarged lymph node in the gastrohepatic region measuring 14 mm in short axis (series 3 image 121). This was not commented on on the initial report. Metastatic involvement of this lymph node is possible. Several additional paraesophageal lymph nodes are evident though these are small and nonspecific. Electronically signed by: Justin Gtz M.D. 06/16/2019 9:[address] abd pelvis wo con CLINICAL HISTORY: 64 years-old Male presenting with abd/back pain, osseous metastases, multiple fractures. TECHNIQUE: Multidetector CT of the abdomen and pelvis was performed without the use of intravenous contrast. IV contrast: None. One or more dose lowering techniques were used consistent with the principles of ALARA (as low as reasonably achievable), including automatic exposure control, mA or kV adjustment to individual patient size, and/or use of iterative reconstruction. COMPARISON: Lumbar spine MRI from 04/23/2019. CT DOSE (mGy.cm): The estimated cumulative dose is 1712.20 mGy.cm. 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 Lung bases: Aortic valve calcification. Normal heart size. No pericardial or pleural effusion. Dependent bandlike opacities at the right lung base likely atelectasis. Underlying pulmonary cysts or emphysema with significant involvement of the lung bases. Liver: Nodular morphology of the liver with multiple underlying lesions. These are new from prior exam. Density consistent with hepatic steatosis. Biliary: No gross biliary ductal dilatation allowing for noncontrast technique. Normal gallbladder. Pancreas: Mild parenchymal atrophy. Spleen: Normal noncontrast appearance. Adrenal glands: Normal noncontrast appearance. Kidneys and ureters: Normal noncontrast appearance. No nephrolithiasis. No hydronephrosis. Normal ureters. Bladder: Circumferential bladder wall thickening. Pelvic organs: TURP defect suggested. Bowel: Mild diverticulosis of the descending colon without wall thickening or pericolonic inflammatory change. The appendix is normal. No bowel obstruction. Peritoneal cavity: No free fluid or intraperitoneal gas. Lymph nodes: No gross lymphadenopathy allowing for noncontrast technique. Vasculature: Atherosclerosis of the normal caliber abdominal aorta. Abdominal wall: Infiltration of the left lateral abdominal wall subcutaneous tissue and left flank. No subcutaneous hematoma. Musculoskeletal: Degenerative changes of the spine. Significant central predominant endplate compression deformity of L5. This may also have a slight burst fracture appearance. Retropulsion of the posterior cortex of L5 with moderate effacement of the spinal canal at this level. This has worsened from the prior MRI. Lytic lesion noted in the posterior right eighth rib lucent lesions also noted in the pelvis and the bilateral zoya and potentially in L1. The lesion in L2 evident on MRI is minimally apparent. IMPRESSION: 1. Findings highly suggestive of hepatic and osseous metastatic disease. The primary site of malignancy is not clearly demonstrated. Consider outpatient PE T/CT for further evaluation. 2. Burst type compression deformity of L5 with worsened retropulsion of the posterior cortex and worsened spinal canal effacement, now moderate in severity. 3. Mild diverticulosis. No diverticulitis. 4. Underlying emphysema or cystic lung disease. 06/14/19 21:57 US venous doppler LE RT Urgent - Negative 06/16/19 10:18 CT guide rad therapy pelvis Routine Hospital Course (1) Malignant neoplasm of gastroesophageal junction: (2) Pathologic compression fracture of lumbar vertebra: (3) Metastatic cancer to spine: (4) Intractable back pain: Pt was sent from oncology office for worsening metastasis bone pain CT abd/pelvis showed highly suggestive of hepatic and osseous metastatic dis ease. Burst type compression deformity of L5 with worsened retropulsion of the posterior cortex and worsened spinal canal effacement, now moderate in severity. 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 Prior auth faxed to insurance) Patient to forklift picker script for prescription on friday as current patch will last till then. -Oxycodone IR 5mg q4h prn pain -cymbalta 30mg daily -Baclofen prn spasm Follow up with Pain management and PCP for continued management. (5) Constipation: Constipation resolved Continue bowel regimen (3)Leg erythema Bilateral leg erythema, nontender Right leg cellulitis per history from and some features of chronic stasis dermatitis Doppler of LE showed no evidence of DVT WBC 13K on admission now 9K No evidence of sepsis (Temp was 38.2 and HR high on admission) Procalcitonin and lactate WNL Continue doxycycline to complete 5 day treatment (4) CKD 3 DOUG on CKD Creatinine has been fluctuating outpatient to 1.8, 1.5, 1.7, 2.2, 1.8 Creatinine 1.09 as of 06/17/19 Avoid nephrotoxic agents (5) Cardiomyopathy Last ECHO from 06/2018 showed reduced EF btw 35-40% Continue metoprolol 25mg BID Stable (6) Hx Atrial fibrillation Rate controlled Physical exam has regular rate and rhythm Stable Code Status Full Code (6) Leg erythema: Total Time Total Time Spent Total Time Spent (In Minutes): 35 Total Time Includes: Examination of the Patient, Discharge Planning, Medication Reconciliation and Communication With Other Providers Discharge Plan Discharge Items Patient Disposition: Home - Home Health Services Reason For Visit: Uncontrolled back pain Discharge Diagnosis: (1) Malignant neoplasm of gastroesophageal junction: (2) Pathologic compression fracture of lumbar vertebra: (3) Metastatic cancer to spine: (4) Intractable back pain (5) Right leg cellulitis (6) Acute kidney injury on CKD3 Condition on Discharge: Fair Activity: Resume your previous activity Non-emergency contact: Primary Care Provider and Oncologist Call non-emergency contact if: you have any medication questions and your symptoms worsen Follow-up/Referrals: Grzegorz Jaquez DO [Primary Care Provider] - 06/21/19 11:05 am Diet: Heart Healthy Addtl Attending Provider Instructions: Mr Alvarez. You presented to the hospital for worsening back pain. You were evaluated with scans which showed spread of your cancer with compression fracture in the lumbar spine. You were evaluated by radiation oncologist and started on radiation therapy. You also had right leg cellulitis and was started on antibiotics. Please take this for another 2 days to complete treatment. You were seen by Palliative doctor and auto painter helper. Your pain regimen was optimized. Please take medications as prescribed. Please follow up with your Oncologist, Radiation oncologist, natural resource specialist and primary Doctor for continued treatment. It was a pleasure taking care of you Pending Studies at Discharge: No Stand-Alone Forms: My [facility]ajan, Opioid Pain Management, Smoking Cessation Medications and DC Order Prescriptions: New doxycycline hyclate 100 mg Capsule 100 mg PO BID 2 Days Qty: 4 RF: 0 baclofen 10 mg Tablet 10 mg PO TID PRN (Reason: Muscle Spasm) Qty: 30 RF: 0 fentanyl 25 mcg/hr Patch 72 Hour 37 mcg transdermal Q3D 30 Days Qty: 10 RF: 0 oxycodone 5 mg Tablet 5 mg PO Q4H PRN (Reason: yariel) Qty: 60 RF: 0 duloxetine 30 mg Capsule,Delayed Release(Dr/Ec) 30 mg PO QAM 30 Days Qty: 30 RF: 0 naloxone 4 mg/actuation spray,non-aerosol See Rx Instructions .ROUTE .COMPLEX Qty: 2 RF: 0 polyethylene glycol 3350 [Miralax] 17 gram Powder In Packet 17 g PO DAILY PRN (Reason: constipation) Qty: 30 RF: 0 sennosides-docusate sodium [Senokot-S] 8.6-50 mg Tablet 1 tab PO BID 30 Days Qty: 60 RF: 0 Continued gabapentin 300 mg capsule 300 mg PO TID RF: 0 metoprolol succinate 25 mg tablet extended release 24 hr 25 mg PO BID RF: 0 hydroxychloroquine 200 mg tablet 400 mg PO .DAILY@NOON RF: 0 Discontinued oxycodone 5 mg tablet 15 mg PO Q6 PRN (Reason: Pain) RF: 0 Discharge Orders: Discharge Order (Routine); Ordered 06/18/19 Ordered By: Sheryl Blackwell/Other Patient Handouts: A1C Admission Data Admit Date/Time: 06/14/19 22:02 Attending Provider: Sheryl Cole I. Admit Provider: Geovany Gamino Primary Care Provider: Grzegorz Jaquez Other Providers: Geovnay Gamino ; Hany Jesus ; Radha Yun ; Libby Candelario ; Emmy Perdomo Other Interventions: Discharge Summary Assessment (RN) Last Done: 06/18/19 17:01 DC Date/Time DO NOT enter until pt leaves facility: 06/18/19 18:06
[2019-06-18] MEDS: HYDROXYCHLOROQUINE SULFATE 200 MG TAB PO SCH (12:57)
[2019-06-18] MEDS: MoRPHine SULFATE 4 MG/ML 1 ML CARP\\VIAL IV PRN ×2 (13:52→17:34)
[2019-06-18] MEDS ORDERED: fentaNYL 25 MCG/HR TDSY TD ONE ×2 (16:30→17:30)
--- NOTE | 2019-06-18 16:32 | Palliative Care Progress Note ---
Date of Service June 18, 2019 Assessment & Plan (1) Palliative care encounter: Patient is a 64-year-old male with a past medical history of hypertension, RA-on Plaquenil, chronic lower extremity lymphedema who was recently diagnosed this past June with cardiomyopathy-EF 30% who presented this past March with back pain with radiation to both hips. Patient underwent MRI which showed multiple compression fractures and bone lesions. A CT scan showed liver lesions consistent with metastatic disease. Patient underwent outpatient EGD on 05/31 and was found to have a fungating mass at the GE junction. Patient diagnosed with stage IV esophageal cancer. Patient was in his oncologist office on 06/14 with intractable pain and was sent to the emergency room. 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 Patient is only required 1 PRN oxycodone at 5 mg and 1 PRN IV morphine at 4 mg each dose in the past 24 hours. Patient states his pain is well controlled at rest and with movement. He was also started on Cymbalta. Patient reports he was given an outpatient palliative clinic appointment in [place]-it had to be canceled due to this admission. Patient reports that m ost of his care is here at [facility] and that follow-up in [place] is more convenient than [place]. Patient given brochure and information to make an outpatient follow-up appointment in the palliative care clinic located in the [facility]. Patient's pain is currently being managed by pain management-they can continue to manage his pain or if they prefer I can provide follow-up in palliative clinic. -Intractable pain-currently well controlled with fentanyl patch at 37 mcg and occasional PRN oxycodone at 5 mg. -Patient given information to follow-up with palliative care clinic-can discuss goals of care and advance care planning at that time -Cardiomyopathy-EF 30%, patient followed by cardiology, cardiac cath showed mild CAD on 07/10/2018 -Esophageal carcinoma-stage IV, follow-up with oncology. (2) Intractable back pain: (3) Cardiomyopathy: (4) Malignant neoplasm of gastroesophageal junction: Subjective Patient awake and alert, no acute distress. Patient's Geovanna, at bedside. Patient's pain is well controlled on fentanyl patch at 37 mcg, he required 1 PRN oxycodone and 1 PRN IV morphine in the past 24 hours for breakthrough pain. Patient reports pain is well controlled with movement and ambulation. Review of Systems Review of Systems: Patient denies fever, chills, chest pain, shortness of breath, or abdominal pain. No current issues with constipation Physical Exam Physical Exam: PE: NAD HEENT: EOMI, hearing within normal limits Respirations: Clear breath sounds CV: Regular rate Abdomen: Soft, nontender Extremities: Full range of motion, normal strength Neuro: Alert and oriented Results & Data Vital Signs (Past 12 Hours) Vital Signs Temp Pulse Pulse Resp BP BP Pulse Ox 06/18/19 15:21 98.2 F 91 H 20 149/100 H 157/100 H 94 06/18/19 12:02 98.2 F 81 20 144/93 H 91 06/18/19 10:40 90 06/18/19 10:00 95 H 121/78 06/18/19 07:14 99.0 F 86 16 162/109 H 91 06/18/19 06:16 161/108 H 06/18/19 05:17 161/114 H PG Care Time/CCT Total # of Minutes Spent Total Time Spent with Patient: Total time spent 35 minutes with greater than 50% of the time spent at bedside discussing pain management options with patient and Coding Level of Care Code 04340 Subseq Hosp Care Lvl 3 Diagnoses Palliative care encounter Z51.5 Intractable back pain M54.9 Cardiomyopathy I42.9 Malignant neoplasm of gastroesophageal junction C16.0 Time Spent (min) 35
[2019-06-18] MEDS ORDERED: fentaNYL 12 MCG/HR TDSY TD ONE (17:30)
== END 2019-06-18 18:06 | disposition home or self-care (01) | DRG 948 ==
LOC: ED 16:57 → SUATTDRO 22:02 → 2N 22:02

== ENCOUNTER 2019-07-28 07:20 | Inpatient (IN) ==
[2019-07-28] MEDS ORDERED: CEFEPIME 2,000 MG/20 ML VIAL IV STA (07:28)
[2019-07-28] MEDS ORDERED: SODIUM CHLORIDE 0.9% 1000ML 1,000 ML IV ONE ×2 (07:28→09:14)
--- NOTE | 2019-07-28 07:35 | Emergency Department Note ---
Impression & Plan Sepsis, Acute dehydration, Acute UTI (urinary tract infection) ED Provider Note NAME: MARK NORRIS AGE: 64 SEX: M : 1955 ARRIVES VIA: Ambulance INFORMANT: Patient, ED PROVIDER(S): Сергей Guzman MD Chief Complaint: Confusion HPI: Patient is presented EMS due to concerns with his wheezing. The patient does have a prior history only 1 cancer with spinal metastases. Patient does acutely complain of nausea and associated lower extremity swelling. History is somewhat limited due to clinical daily presentation. ROS: See HPI for pertinent positives and negatives. A total of 10 systems were reviewed and otherwise negative. Past medical history: See below Surgical history: See below Social history: See below Physical Exam: GENERAL: Ill in appearance, mild distress. EYE EXAM: Normal conjunctiva. PERRL, no anisocoria and EOM's grossly intact w/o pain. OROPHARYNX: Dry mucus membranes. Grossly normal dentition. [No exudate, posterior pharynx is clear, no tonsillar/uvular deviation or swelling. No cervical adenopathy, no submental, submandibular, or sublingual swelling.] NECK: Supple, no nuchal rigidity, no adenopathy, non-tender. No signs of meningismus. Chest: Port in right chest. LUNGS: Clear to auscultation. Normal chest wall mechanics. HEART: NSR, no MRG. ABDOMEN: Abdomen soft, non-tender, normo-active bowel sounds, no masses, no rebound or guarding. BACK: No CVA TTP. SKIN: No rashes and no bruising. UPPER EXTREMITIES: Upper extremities are grossly normal. LOWER EXTREMITIES: Grossly normal, no edema. NEURO EXAM: Awake and alert, follows commands, oriented to person and place, cranial nerves II-XII grossly intact, no dysarthria, moves all 4 extremities on command w/o issue. Differential diagnoses: Infection, dehydration, metabolic abnormality, hypo/hyperglycemia, electrolyte disturbance, anemia, hypoxia, cardiac sources, intracerebral event, toxicologic, neurologic, as well as other pathologies. Course: Patient was seen and evaluated the bedside. A full history and physical exam was performed. EKG: Indication: Tachycardia Sinus tachycardia, rate 125, normal intervals, normal axis, nonspecific ST changes. Rate is increased compared to July 15, 2018. Imaging Studies: Radiology results as stated below per my review in the radiologist's interpretation: XR chest 1V portable CLINICAL HISTORY: SEPSIS COMPARISON STUDY: 06/30/2019 FINDINGS: The examination was performed in a supine fashion. The study is rotated. The heart is mildly enlarged. There is a right-sided A-Port catheter unchanged in position. Increased density of the right hemithorax, likely relates to technical factors. There is a 9 mm rounded opacity at the left lung base, likely representing a nipple shadow or vascular summation. This should be reevaluated on subsequent films.[There is no overt failure. There is no lobar consolidation. There are no significant pleural effusions. IMPRESSION: 1. Technically limited supine study 2. Increased density of the right hemithorax likely related to technical factors 3. 9 mm opacity at the left lung base, likely resenting a nipple shadow or vascular summation. This should be reevaluated on subsequent films 4. No overt failure. No evidence of lobar consolidation ACT 112: Negative or not required by law. Electronically signed by: Berhane Harrington M.D. 07/28/2019 7:49 AM Dictated: 07/28/1943 Transcribed: 07/28/19 0744 Cardiac monitoring: An order was placed for continuous cardiac monitoring. The monitor shows a rate of 122 with tachycardic and regular rhythm. MDM: Patient was seen and evaluated bedside. Patient does present with a fever 101. History of lung CA with spinal neck. The patient has had mild cough and nausea. Patient does appear to be dry. Patient does have a white blood cell count of 18,000 with a left shift. The patient did have blood cultures completed along with a cath urine. Urine does appear to be infected. O2 saturations are in the low 90s to high 80s. Patient's chest x-ray does show an opacity of the left lung base. Given the patient's tachycardia and fever I believe this is more related to infectious etiology as opposed to related to PE. Patient currently does spinal metastases. Patient was covered with cefepime and a MRSA swab. Flu was also tested. The patient did receive a liter of IV fluids. I did speak with the on-call hospitalist agreed to further evaluate treat the patient. The patient did have a CT of the chest ordered by the inpatient team. The patient does have concerning worsening progression of his malignancy but no obvious PE. Patient was admitted to the medicine service. Critical Care: I have personally spent 75 minutes of critical care time in direct management of this patient. This includes bedside care, interpretation of diagnostic studies, and testing, discussion with consultants, patient, and family members, and other require inpatient management activities. This 75 minutes is in excess of all separately billable procedures. Past Med/Surg History Medical History (Updated 07/28/19 @ 11:55 by Сергей Guzman MD) Acute hypoxemic respiratory failure 06/2018 Afib Recent confinement June 2018 for new diagnosis of heart failure. Paroxysmal A. fib noted during confinement. Patient discharged on Eliquis for anticoagulation.> PT REPORTS NO LONGER ON ELIQUIS> THIS WAS ISOLATED INCIDENT Eliquis discontinued a few months later by sand sifter after outpatient telemetry did not show recurrent AF. Anxiety Atypical chest pain Cancer associated pain (Inactive) Cardiomyopathy Severe LV dysfunction with EF of 30% found on admission June 2018. TTE 11/02/2018 showed resolution of cardiomyopathy with EF greater than 70%. Chronic anemia CKD (chronic kidney disease), stage III Constipation Elevated troponin 06/2018. Cardiac catheterization performed during admission showed severe LV dysfunction with EF of 30% but large-caliber coronaries with minimal irregularities at most. Elevation felt secondary to demand ischemia from cardiomyopathy/fluid overload. GE junction carcinoma GERD (gastroesophageal reflux disease) HX Hypertension Malignant neoplasm of gastroesophageal junction REASON FOR PROCEDURE > RADIATION AT PRESENT Metastatic cancer to spine (Inactive) Nonischemic cardiomyopathy Paroxysmal atrial fibrillation Pathologic compression fracture of lumbar vertebra L5 with retropulsion > W/C AT PRESENT Pneumonia 06/2018 Rheumatoid arthritis Surgical History History of cardiac cath JUNE 2018 > FOR C.P/SOB > [facility] > NO STENTS History of tooth extraction Hx of colonoscopy Family History Grandfather (Maternal) Diabetes Social History Preferred Language: Slovenian Communication Ability: Effective 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 [employer]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: No Beliefs That Will Affect Care: None Current Living Situation: Spouse Feels Safe at Home: Yes Smoking Status: Never smoker Second Hand Exposure: No ; Hx Alcohol Use: No Hx Substance Use: No Allergies Allergies Allergy/AdvReac Type Severity Reaction Status Date / Time No Known Allergies Allergy Verified 07/28/19 07:50 Home Meds Home Medications Medication Instructions Recorded Confirmed gabapentin 600 mg PO UD 06/14/19 07/28/19 hydroxychloroquine 400 mg PO DAILY@199906/14/19 07/28/19 metoprolol succinate 25 mg PO BID 06/14/19 07/28/19 fentanyl 50 mcg/hr transdermal 1 patch TD Q72H 06/28/19 07/28/19 patch naloxone 4 mg INTRANASAL DIRECTED PRN 06/28/19 07/28/19 Metamucil 1 tbsp PO DAILY PRN 06/30/19 07/28/19 loperamide [Imodium A-D] 2 mg PO Q3H PRN 06/30/19 07/28/19 acetaminophen [Tylenol Extra 1,000 mg PO Q6H 07/28/19 07/28/19 Strength] gabapentin 900 mg PO DAILY@199907/28/19 07/28/19 morphine 15 mg PO Q6H PRN 07/28/19 07/28/19 oxycodone 10 mg PO Q4H PRN 07/28/19 07/28/19 Previous Rx's Medication Instructions Recorded polyethylene glycol 3350 [Miralax] 17 g PO DAILY PRN #30 ea 06/18/19 Results & Data (ED) Vital Signs Vital Signs - 24 hr 07/28/19 07:04 07/28/19 07:30 07/28/19 07:31 Temperature 38.3 C H Temperature Source Oral Pulse Rate 126 H 128 H 126 H Pulse Rate from SpO2 Sensor 131 H 126 H Respiratory Rate 24 21 23 Respiratory Effort / Characteristics Spontaneous Respiratory Depth Normal Respiratory Pattern Tachypnea Blood Pressure 158/105 H 158/105 H Blood Pressure Mean 122 118 Blood Pressure Position Lying Pulse Oximetry 96 95 95 Oxygen Delivery Method Room Air Room Air Room Air Sepsis Recent Fever Within 48 Hours Yes Sepsis New/Unexplained Change in Mental Status No Sepsis Action Taken by Nursing No Action Required 07/28/19 07:35 07/28/19 07:36 07/28/19 07:40 Temperature Temperature Source Pulse Rate Pulse Rate from SpO2 Sensor 126 H Respiratory Rate Respiratory Effort / Characteristics Respiratory Depth Respiratory Pattern Blood Pressure Blood Pressure Mean Blood Pressure Position Pulse Oximetry 96 96 95 Oxygen Delivery Method Room Air Room Air Room Air Sepsis Recent Fever Within 48 Hours Sepsis New/Unexplained Change in Mental Status Sepsis Action Taken by Nursing 07/28/19 07:47 07/28/19 07:50 07/28/19 08:00 Temperature Temperature Source Pulse Rate 124 H 122 H 121 H Pulse Rate from SpO2 Sensor 124 H 124 H 119 H Respiratory Rate 24 21 23 Respiratory Effort / Characteristics Respiratory Depth Respiratory Pattern Blood Pressure 168/103 H 153/92 H Blood Pressure Mean 124 112 Blood Pressure Position Pulse Oximetry 94 94 93 Oxygen Delivery Method Room Air Room Air Room Air Sepsis Recent Fever Within 48 Hours Sepsis New/Unexplained Change in Mental Status Sepsis Action Taken by Nursing 07/28/19 08:10 07/28/19 08:30 07/28/19 08:40 Temperature Temperature Source Pulse Rate 121 H 122 H 120 H Pulse Rate from SpO2 Sensor 121 H 122 H 119 H Respiratory Rate 24 25 H 21 Respiratory Effort / Characteristics Respiratory Depth Respiratory Pattern Blood Pressure 142/91 H Blood Pressure Mean 107 Blood Pressure Position Pulse Oximetry 89 L 92 94 Oxygen Delivery Method Room Air Room Air Room Air Sepsis Recent Fever Within 48 Hours Sepsis New/Unexplained Change in Mental Status Sepsis Action Taken by Nursing 07/28/19 08:50 07/28/19 09:00 07/28/19 09:10 Temperature 37.3 C Temperature Source Pulse Rate 120 H 116 H 119 H Pulse Rate from SpO2 Sensor 120 H 116 H 116 H Respiratory Rate 23 24 21 Respiratory Effort / Characteristics Respiratory Depth Respiratory Pattern Blood Pressure 144/90 H Blood Pressure Mean 103 Blood Pressure Position Pulse Oximetry 93 95 95 Oxygen Delivery Method Room Air Room Air Room Air Sepsis Recent Fever Within 48 Hours Sepsis New/Unexplained Change in Mental Status Sepsis Action Taken by Nursing 07/28/19 09:20 07/28/19 09:38 07/28/19 09:40 Temperature Temperature Source Pulse Rate 121 H 122 H 122 H Pulse Rate from SpO2 Sensor 138 H 122 H Respiratory Rate 21 24 22 Respiratory Effort / Characteristics Respiratory Depth Respiratory Pattern Blood Pressure 168/109 H Blood Pressure Mean 132 Blood Pressure Position Pulse Oximetry 91 93 Oxygen Delivery Method Room Air Room Air Sepsis Recent Fever Within 48 Hours Sepsis New/Unexplained Change in Mental Status Sepsis Action Taken by Nursing 07/28/19 09:50 07/28/19 10:00 Temperature Temperature Source Pulse Rate 122 H 121 H Pulse Rate from SpO2 Sensor 122 H 120 H Respiratory Rate 21 27 H Respiratory Effort / Characteristics Respiratory Depth Respiratory Pattern Blood Pressure 181/107 H Blood Pressure Mean 121 Blood Pressure Position Pulse Oximetry 96 93 Oxygen Delivery Method Room Air Sepsis Recent Fever Within 48 Hours Sepsis New/Unexplained Change in Mental Status Sepsis Action Taken by Custodial Medications Current Medication List: was personally reviewed by me Laboratory Data Attestation: I reviewed the patient's lab results. Result diagrams: 07/28/19 07:47 07/28/19 07:47 Lab Results 07/28/19 07/28/19 07/28/19 Range/Units 07:47 07:47 07:47 WBC 18.86 H (4.8-10.8) K/uL RBC 3.63 L (4.7-6.1) M/uL Hgb 9.9 L (14.0-18.0) g/dL Hct 29.7 L (42-52) % MCV 81.8 (80-100) fL MCH 27.3 (25-34) pg MCHC 33.3 (32-36) g/dL RDW Std Deviation 45.8 (36.4-46.3) fL RDW Coeff of Arlyn 15.6 H (11.5-14.5) % Plt Count 480 H (130-400) K/uL MPV 8.6 (7.4-10.4) fL Immature Gran % (Auto) 0.4 % Neut % (Auto) 86.2 % Lymph % (Auto) 1.9 % [place] % (Auto) 11.2 % Eos % (Auto) 0.2 % Baso % (Auto) 0.1 % Immature Gran # (Auto) 0.08 H (0.00-0.02) K/uL Neut # (Auto) 16.25 H (1.4-6.5) K/uL Lymph # (Auto) 0.36 L (1.2-3.4) K/uL [place] # (Auto) 2.12 H (0.11-0.59) K/uL Eos # (Auto) 0.03 (0-0.5) K/uL Baso # (Auto) 0.02 (0-0.2) K/uL PT 14.3 H (9.0-12.0) Seconds INR 1.4 H (0.9-1.1) APTT 40.9 H (21.0-31.0) Seconds PTT Ratio 1.5 Sodium 132 L (136-145) mmol/L Potassium 4.2 (3.5-5.1) mmol/L Chloride 99 (98-107) mmol/L Carbon Dioxide 25 (21-32) mmol/L Anion Gap 7.0 (3-11) BUN 16 (7-18) mg/dl Creatinine 1.04 (0.6-1.4) mg/dl Est Cr Clr Drug Dosing 104.6 ml/min Est GFR ( Amer) 88.1 Est GFR (Non-Af Amer) 76.1 BUN/Creatinine Ratio 15.5 (10-20) Glucose 90 (70-99) mg/dl Lactate (0.4-2.0) mmol/L Calcium 8.6 (8.5-10.1) mg/dl Magnesium 2.2 (1.8-2.4) mg/dl Total Bilirubin 0.5 (0.2-1) mg/dl AST 110 H (15-37) U/L ALT 29 (12-78) U/L Alkaline Phosphatase 408 H (45-117) U/L Troponin I < 0.015 (0-0.045) ng/ml Total Protein 6.9 (6.4-8.2) gm/dl Albumin 2.0 L (3.4-5.0) gm/dl Globulin 4.9 H (2.5-4.0) gm/dl Albumin/Globulin Ratio 0.4 L (0.9-2) Procalcitonin (0-0.5) ng/ml Urine Color Urine Appearance (Clear) Urine pH (4.5-7.5) Ur Specific [place] (1.000-1.030) Urine Protein (Negative) Urine Glucose (UA) (Negative) Urine Ketones (Negative) Urine Blood (Negative) Urine Nitrite (Negative) Urine Bilirubin (Negative) Urine Urobilinogen (Negative) Ur Leukocyte Esterase (Negative) Urine WBC (Auto) (0-5) /hpf Urine RBC (Auto) (0-4) /hpf U Hyaline Cast (Auto) (0-5) /lpf U Epithel Cells (Auto) (0-5) /lpf Urine Bacteria (Auto) (Negative) Nasal Screen MRSA (PCR) (Negative) Influenza Type A (PCR) (Neg) Influenza Type B (PCR) (Neg) 07/28/19 07/28/19 07/28/19 Range/Units 07:47 07:47 07:47 WBC (4.8-10.8) K/uL RBC (4.7-6.1) M/uL Hgb (14.0-18.0) g/dL Hct (42-52) % MCV (80-100) fL MCH (25-34) pg MCHC (32-36) g/dL RDW Std Deviation (36.4-46.3) fL RDW Coeff of Arlyn (11.5-14.5) % Plt Count (130-400) K/uL MPV (7.4-10.4) fL Immature Gran % (Auto) % Neut % (Auto) % Lymph % (Auto) % [place] % (Auto) % Eos % (Auto) % Baso % (Auto) % Immature Gran # (Auto) (0.00-0.02) K/uL Neut # (Auto) (1.4-6.5) K/uL Lymph # (Auto) (1.2-3.4) K/uL [place] # (Auto) (0.11-0.59) K/uL Eos # (Auto) (0-0.5) K/uL Baso # (Auto) (0-0.2) K/uL PT (9.0-12.0) Seconds INR (0.9-1.1) APTT (21.0-31.0) Seconds PTT Ratio Sodium (136-145) mmol/L Potassium (3.5-5.1) mmol/L Chloride (98-107) mmol/L Carbon Dioxide (21-32) mmol/L Anion Gap (3-11) BUN (7-18) mg/dl Creatinine (0.6-1.4) mg/dl Est Cr Clr Drug Dosing ml/min Est GFR ( Amer) Est GFR (Non-Af Amer) BUN/Creatinine Ratio (10-20) Glucose (70-99) mg/dl Lactate (0.4-2.0) mmol/L Calcium (8.5-10.1) mg/dl Magnesium (1.8-2.4) mg/dl Total Bilirubin (0.2-1) mg/dl AST (15-37) U/L ALT (12-78) U/L Alkaline Phosphatase (45-117) U/L Troponin I (0-0.045) ng/ml Total Protein (6.4-8.2) gm/dl Albumin (3.4-5.0) gm/dl Globulin (2.5-4.0) gm/dl Albumin/Globulin Ratio (0.9-2) Procalcitonin 4.43 H (0-0.5) ng/ml Urine Color Dark Yellow Urine Appearance Cloudy A (Clear) Urine pH 6.0 (4.5-7.5) Ur Specific [place] 1.022 (1.000-1.030) Urine Protein 2+ H (Negative) Urine Glucose (UA) Negative (Negative) Urine Ketones Trace H (Negative) Urine Blood 2+ H (Negative) Urine Nitrite Negative (Negative) Urine Bilirubin Negative (Negative) Urine Urobilinogen Negative (Negative) Ur Leukocyte Esterase 2+ H (Negative) Urine WBC (Auto) >30 H (0-5) /hpf Urine RBC (Auto) 5-10 H (0-4) /hpf U Hyaline Cast (Auto) 1-5 (0-5) /lpf U Epithel Cells (Auto) 0-5 (0-5) /lpf Urine Bacteria (Auto) 2+ H (Negative) Nasal Screen MRSA (PCR) (Negative) Influenza Type A (PCR) Neg for Influ A (Neg) Influenza Type B (PCR) Neg for Influ B (Neg) 07/28/19 07/28/19 Range/Units 07:50 08:15 WBC (4.8-10.8) K/uL RBC (4.7-6.1) M/uL Hgb (14.0-18.0) g/dL Hct (42-52) % MCV (80-100) fL MCH (25-34) pg MCHC (32-36) g/dL RDW Std Deviation (36.4-46.3) fL RDW Coeff of Arlyn (11.5-14.5) % Plt Count (130-400) K/uL MPV (7.4-10.4) fL Immature Gran % (Auto) % Neut % (Auto) % Lymph % (Auto) % [place] % (Auto) % Eos % (Auto) % Baso % (Auto) % Immature Gran # (Auto) (0.00-0.02) K/uL Neut # (Auto) (1.4-6.5) K/uL Lymph # (Auto) (1.2-3.4) K/uL [place] # (Auto) (0.11-0.59) K/uL Eos # (Auto) (0-0.5) K/uL Baso # (Auto) (0-0.2) K/uL PT (9.0-12.0) Seconds INR (0.9-1.1) APTT (21.0-31.0) Seconds PTT Ratio Sodium (136-145) mmol/L Potassium (3.5-5.1) mmol/L Chloride (98-107) mmol/L Carbon Dioxide (21-32) mmol/L Anion Gap (3-11) BUN (7-18) mg/dl Creatinine (0.6-1.4) mg/dl Est Cr Clr Drug Dosing ml/min Est GFR ( Amer) Est GFR (Non-Af Amer) BUN/Creatinine Ratio (10-20) Glucose (70-99) mg/dl Lactate 1.5 (0.4-2.0) mmol/L Calcium (8.5-10.1) mg/dl Magnesium (1.8-2.4) mg/dl Total Bilirubin (0.2-1) mg/dl AST (15-37) U/L ALT (12-78) U/L Alkaline Phosphatase (45-117) U/L Troponin I (0-0.045) ng/ml Total Protein (6.4-8.2) gm/dl Albumin (3.4-5.0) gm/dl Globulin (2.5-4.0) gm/dl Albumin/Globulin Ratio (0.9-2) Procalcitonin (0-0.5) ng/ml Urine Color Urine Appearance (Clear) Urine pH (4.5-7.5) Ur Specific [place] (1.000-1.030) Urine Protein (Negative) Urine Glucose (UA) (Negative) Urine Ketones (Negative) Urine Blood (Negative) Urine Nitrite (Negative) Urine Bilirubin (Negative) Urine Urobilinogen (Negative) Ur Leukocyte Esterase (Negative) Urine WBC (Auto) (0-5) /hpf Urine RBC (Auto) (0-4) /hpf U Hyaline Cast (Auto) (0-5) /lpf U Epithel Cells (Auto) (0-5) /lpf Urine Bacteria (Auto) (Negative) Nasal Screen MRSA (PCR) Negative (Negative) Influenza Type A (PCR) (Neg) Influenza Type B (PCR) (Neg) Administered Medications Discontinued Medications Sodium Chloride (Nss 1000ml) 1,000 mls @ 999 mls/hr IV .Q1H1M ONE Stop: 07/28/19 08:28 Last Infusion: 07/28/19 09:15 Dose: 0 mls/hr Documented by: [id number] Admin: 07/28/19 08:10 Dose: 999 mls/hr Documented by: [id number] Cefepime HCl (Maxipime) 2,000 mg in 20 mls @ 5 mls/min IV NOW STA; Protocol Stop: 07/28/19 07:31 Last Admin: 07/28/19 08:09 Dose: 5 mls/min Documented by: [id number] Lorazepam (Ativan) 0.5 mg in 1 mls @ 1 mls/min IV NOW STA Stop: 07/28/19 07:55 Last Admin: 07/28/19 08:08 Dose: 1 mls/min Documented by: [id number] Lorazepam (Ativan) 0.5 mg in 1 mls @ 0.5 mls/min IV UD PRN PRN Reason: Agitation Stop: 08/27/19 07:54 Last Admin: 07/28/19 10:16 Dose: 0.5 mls/min Documented by: [id number] Sodium Chloride (Nss 1000ml) 1,000 mls @ 999 mls/hr IV .Q1H1M ONE Stop: 07/28/19 10:14 Last Infusion: 07/28/19 10:40 Dose: 0 mls/hr Documented by: [id number] Admin: 07/28/19 09:16 Dose: 999 mls/hr Documented by: [id number] Morphine Sulfate (Morphine Sulfate) Confirm Administered Dose 2 mg .ROUTE .STK- MED ONE Stop: 07/28/19 11:34 Last Admin: 07/28/19 11:47 Dose: 2 mg Documented by: [id number] Blood Pressure Blood Pressure Findings: Elevated blood pressure Blood Pressure Disposition: Referred to patients primary care provider Discharge Plan Visit Data *Final* Discharge Date/Time: 07/28/19 11:10 Chief Complaint: Confusion ED Provider: Сергей Guzman Discharge Problem: Sepsis, Acute dehydration, Acute UTI (urinary tract infection) Patient Disposition: Admitted As Inpatient Discharge Instructions Interventions: ED Discharge Assessment Last Done: 07/28/19 11:10 Discharge Problem: Sepsis Qualifiers: Sepsis type: sepsis due to unspecified organism Sepsis acute organ dysfunction status: unspecified Qualified Code(s): A41.9 - Sepsis, unspecified organism
--- NOTE | 2019-07-28 07:50 | XRay Report ---
XR chest 1V portable CLINICAL HISTORY: SEPSIS COMPARISON STUDY: 06/30/2019 FINDINGS: The examination was performed in a supine fashion. The study is rotated. The heart is mildl y enlarged. There is a right-sided A-Port catheter unchanged in position. Increased density of the ri ght hemithorax, likely relates to technical factors. There is a 9 mm rounded opacity at the left lung base, likely representing a nipple shadow or vascular summation. This should be reevaluated on subse quent films.[There is no overt failure. There is no lobar consolidation. There are no significant ple ural effusions. IMPRESSION: 1. Technically limited supine study 2. Increased density of the right hemithorax likely related to technical factors 3. 9 mm opacity at the left lung base, likely resenting a nipple shadow or vascular summation. This s hould be reevaluated on subsequent films 4. No overt failure. No evidence of lobar consolidation ACT 112: Negative or not required by law. Electronically signed by: Berhane Harrington M.D. 07/28/2019 7:49 AM
[2019-07-28] MEDS ORDERED: LORazepam 0.5 MG/1 ML VIAL IV STA (07:54)
[2019-07-28] MEDS ORDERED: LORazepam 0.5 MG/1 ML VIAL IV PRN (07:55)
[2019-07-28 07:59] LABS: Appearance Urine Cloudy (Clear); Bacteria Urine Automated 2+ (Negative); Bilirubin Urine Negative (Negative); Blood Urine 2+ (Negative); Color Urine Dark Yellow; Epithelial Cell Urine Auto 0-5 /lpf (0-5); Glucose Urine UA Negative (Negative); Ketones Urine Trace (Negative); Leukocyte Esterase Urine 2+ (Negative); Nitrite Urine Negative (Negative); Protein Urine 2+ (Negative); Specific Gravity Urine 1.022 (1.000-1.030); Urobilinogen Urine Negative (Negative); WBC Urine Automated >30 /hpf (0-5)
[2019-07-28 08:10] LABS: Basophils # (auto) 0.02 K/uL (0-0.2); Basophils % (auto) 0.1 %; Eosinophils # (auto) 0.03 K/uL (0-0.5); Eosinophils % (auto) 0.2 %; Hematocrit (blood only) 29.7 % (42-52); Hemoglobin 9.9 g/dL (14.0-18.0); Immature Granulocytes # (auto) 0.08 K/uL (0.00-0.02); Immature Granulocytes % (auto) 0.4 %; Lymphocytes # (auto) 0.36 K/uL (1.2-3.4); Lymphocytes % (auto) 1.9 %; Mean Corpuscular Hemoglobin 27.3 pg (25-34); Mean Corpuscular Hgb Conc 33.3 g/dL (32-36); Mean Corpuscular Volume 81.8 fL (80-100); Mean Platelet Volume 8.6 fL (7.4-10.4); Monocytes # (auto) 2.12 K/uL (0.11-0.59); Monocytes % (auto) 11.2 %; Neutrophils # (auto) 16.25 K/uL (1.4-6.5); Neutrophils % (auto) 86.2 %; Platelet Count 480 K/uL (130-400); RDW Coefficient of Variation 15.6 % (11.5-14.5); RDW Standard Deviation 45.8 fL (36.4-46.3); Red Blood Count 3.63 M/uL (4.7-6.1); White Blood Count 18.86 K/uL (4.8-10.8)
[2019-07-28 08:26] LABS: Alanine Aminotransferase 29 U/L (12-78); Aspartate Aminotransferase 110 U/L (15-37); BUN Creatinine Ratio 15.5 (10-20); Blood Urea Nitrogen 16 mg/dl (7-18); Calcium 8.6 mg/dl (8.5-10.1); Carbon Dioxide 25 mmol/L (21-32); Chloride 99 mmol/L (98-107); Creatinine Clr Calc Pharmacy 104.6 ml/min; Est GFR (African American) 88.1; Est GFR (Non-African American) 76.1; Glucose 90 mg/dl (70-99); Magnesium 2.2 mg/dl (1.8-2.4); Potassium 4.2 mmol/L (3.5-5.1); Sodium 132 mmol/L (136-145)
[2019-07-28 08:30] LABS: INR 1.4 (0.9-1.1); Partial Thromboplastin Ratio 1.5; Partial Thromboplastin Time 40.9 Seconds (21.0-31.0); Prothrombin Time 14.3 Seconds (9.0-12.0)
[2019-07-28 08:31] LABS: Albumin Globulin Ratio 0.4 (0.9-2); Alkaline Phosphatase 408 U/L (45-117); Bilirubin,Total 0.5 mg/dl (0.2-1); Globulin 4.9 gm/dl (2.5-4.0); Total Protein 6.9 gm/dl (6.4-8.2); Troponin I < 0.015 ng/ml (0-0.045)
--- NOTE | 2019-07-28 08:33 | CT Scan Report ---
CT head/brain wo con CLINICAL HISTORY: confusion, fever, h/o lung CA w/ mets COMPARISON STUDY: None TECHNIQUE: Axial CT of the brain is performed from the vertex to the skull base. IV contrast was not administered for this examination. A dose lowering technique was utilized adhering to the principles of ALARA. CT DOSE: 537.48 mGy.cm FINDINGS: No intra or extra-axial mass lesions are visualized. There is no CT evidence of acute cortical infarc tion. There is no evidence of midline shift. There is no acute hemorrhage. No calvarial fractures ar e visualized. There are patchy white matter hypodensities likely on a small vessel basis. There is no evidence of pathologic ventricular dilatation. There is no evidence of acute sinusitis. If there is clinical concern over the presence of intracranial metastasis, an MRI would be considered the test of choice. IMPRESSION: No acute intracranial findings ACT 112: Negative or not required by law. Electronically signed by: Berhane Harrington M.D. 07/28/2019 8:32 AM
[2019-07-28 08:41] LABS: Influenza A virus by PCR Neg for Influ A (Neg); Influenza B virus by PCR Neg for Influ B (Neg)
--- NOTE | 2019-07-28 09:57 | CT Scan Report ---
CT chest wo con CLINICAL HISTORY: 64 years-old Male presenting with fever. TECHNIQUE: Multidetector CT imaging of the chest was performed without the use of intravenous contras t. IV contrast: None. One or more dose lowering techniques were used consistent with the principles o f ALARA (as low as reasonably achievable), including automatic exposure control, mA or kV adjustment to individual patient size, and/or use of iterative reconstruction. COMPARISON: 07/08/2018. CT DOSE (mGy.cm): The estimated cumulative dose is 898.43 mGycm. FINDINGS: Supervisor Baking topogram: Unremarkable. Soft tissues: Right internal jugular Mediport terminates in the right internal jugular vein. Normal t hyroid and thoracic inlet. No axillary, supraclavicular, or mediastinal lymphadenopathy. Evaluation o f the rand limited without intravenous contrast. Normal aorta. Normal heart size. Aortic valve calcif ication. No pericardial effusion. Abnormal extrapleural soft tissue emanating from the right eight ri b lesion. Either trace right pleural fluid or questionable right pleural thickening. Macronodular mor phology of the liver representing a significant change from prior concerning for underlying lesions. Lungs and airways: No pneumothorax. Central airways patent. Pulmonary arteries are not significantly enlarged relative to adjacent bronchi. No interlobular septal thickening. Moderate upper lobe predomi nant centrilobular emphysema. Peripheral bandlike and wedgelike opacities in the posterior right uppe r and lower lobes. Solid 5 mm peripheral nodule at the right lower lobe base (series 5 image 209), ne w from prior. Solid 7 mm lingular nodule (series 4 image 202), new from prior. Solid 4 mm left upper lobe nodule (series 4 image 114), new from prior. Musculoskeletal: Expansile lesion of the posterior right eighth rib, new from prior. Subacute to hoof and shoe inspector loretta fracture of the lateral right fourth rib with abnormal extraosseous soft tissue, new from prior a nd likely pathologic. Expansile lytic lesion in the sternal also noted, new from prior. IMPRESSION: 1. Findings highly suspicious for metastatic disease with pulmonary, hepatic and osseous involvement . Known underlying malignancy presumed from the presence of the Mediport. Dedicated abdominal imaging could be considered for confirmation of hepatic involvement. 2. Bandlike and wedgelike opacities in the posterior right lung, most likely atelectasis. The appear ance is not characteristic of infectious infiltrates. The report will be called/faxed according to standard departmental protocol. ACT 112: Negative or not required by law. Electronically signed by: Justin Gtz M.D. 07/28/2019 9:55 AM
--- NOTE | 2019-07-28 10:50 | History & Physical Report ---
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 In ER T: 38.3C, P: 126, R: 24, BP: 158/105, 96% on RA dropped to 89% on RA after Ativan given up to 93% on RA. WBC: 18, Lacatate: 1.5, Procalcitonin: 4.4, negative influenza PCR, UA: 2+leuk esterase, >30 WBC, 2+bacteria CT HEAD WITHOUT CONTRAST: No acute intracranial findings CT CHEST WITHOUT CONTRAST: 1. Findings highly suspicious for metastatic disease with pulmonary, hepatic and osseous involvement. Known underlying malignancy presumed from the presence of the Mediport. Dedicated abdominal imaging could be considered for confirmation of hepatic involvement. 2. Bandlike and wedgelike opacities in the posterior right lung, most likely atelectasis. The appearance is not characteristic of infectious infiltrates. Meets SIRS criteria -In ER given Cefepime, Ativan, 2L NSS -Blood cultures pending -Urine culture pending -MRSA swab pending -Cefepime, doxycycline -IVF -CBC, CMP in am (3) Metabolic encephalopathy: Confusion and agitation x 2 days in setting of fever and UTI -In ER given Ativan with decreased agitation -Monitor closely -Ativan prn agitation, careful administration with his chronic narcotic pain medication (4) Tachycardia: HR in 120's in ER Likely multifactorial secondary to fever, underlying infection, dehydration, agitated, missed beta minesh doses -Monitor -IVF -Treat infection as above -Continue metoprolol succinate (5) GE junction carcinoma: 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 Has not started chemo. Follows with Dr Blank Had discussion in past and wants to continue to pursue full treatment Today CT Chest: Findings highly suspicious for metastatic disease with pulmonary involvement (6) Paroxysmal atrial fibrillation: H/O PAF. Not on Coumadin Sinus tachycardia currently -Monitor on tele (7) CKD (chronic kidney disease), stage III: Cr: 1.0. Baseline Cr: ~1.6 -Avoid nephrotoxic agents when possible -Monitor renal functions (8) Nonischemic cardiomyopathy: H/O ischemic cardiomyopathy EF: 35-40% in 06/2018 with EF>70% in 10/2018 (9) Chronic anemia: H/H: 9.9/29. Baseline Hgb~12 No signs of bleeding -Monitor H&H (10) Rheumatoid arthritis: -Continue Plaquenil DVT Prophylaxis -Lovenox SQ Admit tele Full Code as per discussion with pt's . Pt was full code prior admission also Follows with Dr Jaquez for routine care Pt was seen and care coordinated with Dr Mederos. 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 History obtained from pt's secondary to pt's current altered mental status. It is reported that at home pt with fever 102.8F yesterday and 103F 2 days ago. Yesterday was able to give Tylenol with limited relief of fever. Also noted confusion and agitation x 2 days. Has been difficult to get pt to take his medications, including his pain medications for back pain from spine mets. She did apply new fentanyl patch yesterday. Pt had one episode of vomiting yesterday. Denies pt c/o abdominal pain. It is reported pt with intermittent cough that is sometimes productive white and no recent change in this cough. No noted SOB or wheezing. Pt has not yet started chemo. Last radiation to spine 2-3 weeks ago and reports after pt had diarrhea for 5-7 days. She was giving pt probiotics and diarrhea has since resolved and pt having solid BM's. states pt urine has gotten darker over past 24 hours. Pt lives at home. Denies ill contacts or known COVID exposure. Denies recent travel. Denies noted syncope or LOC, noted rashes or edema. Recent hospitalization in 06/15/2019-06/18/2019 for intractable back pain secondary to bone mets and RLE cellulitis. Allergies Allergy/AdvReac Type Severity Reaction Status Date / Time No Known Allergies Allergy Verified 07/28/19 07:50 Home Medications Home Medications Medication Instructions Recorded Confirmed Type gabapentin 600 mg PO UD 06/14/19 07/28/19 History hydroxychloroquine 400 mg PO DAILY@199906/14/19 07/28/19 History metoprolol succinate 25 mg PO BID 06/14/19 07/28/19 History polyethylene glycol 3350 [Miralax] 17 g PO DAILY PRN #30 ea 06/18/19 07/28/19 Rx fentanyl 50 mcg/hr transdermal 1 patch TD Q72H 06/28/19 07/28/19 History patch naloxone 4 mg INTRANASAL DIRECTED PRN 06/28/19 07/28/19 History Metamucil 1 tbsp PO DAILY PRN 06/30/19 07/28/19 History loperamide [Imodium A-D] 2 mg PO Q3H PRN 06/30/19 07/28/19 History acetaminophen [Tylenol Extra 1,000 mg PO Q6H 07/28/19 07/28/19 History Strength] gabapentin 900 mg PO DAILY@199907/28/19 07/28/19 History morphine 15 mg PO Q6H PRN 07/28/19 07/28/19 History oxycodone 10 mg PO Q4H PRN 07/28/19 07/28/19 History Past Med/Surg History Medical History (Updated 07/28/19 @ 11:55 by Сергей Guzman MD) Acute hypoxemic respiratory failure 06/2018 Afib Recent confinement June 2018 for new diagnosis of heart failure. Paroxysmal A. fib noted during confinement. Patient discharged on Eliquis for anticoagulation.> PT REPORTS NO LONGER ON ELIQUIS> THIS WAS ISOLATED INCIDENT Eliquis discontinued a few months later by hair or beauty salon manager after outpatient telemetry did not show recurrent AF. Anxiety Atypical chest pain Cancer associated pain (Inactive) Cardiomyopathy Severe LV dysfunction with EF of 30% found on admission June 2018. TTE 11/02/2018 showed resolution of cardiomyopathy with EF greater than 70%. Chronic anemia CKD (chronic kidney disease), stage III Constipation Elevated troponin 06/2018. Cardiac catheterization performed during admission showed severe LV dysfunction with EF of 30% but large-caliber coronaries with minimal irregularities at most. Elevation felt secondary to demand ischemia from cardiomyopathy/fluid overload. GE junction carcinoma GERD (gastroesophageal reflux disease) HX Hypertension Malignant neoplasm of gastroesophageal junction REASON FOR PROCEDURE > RADIATION AT PRESENT Metastatic cancer to spine (Inactive) Nonischemic cardiomyopathy Paroxysmal atrial fibrillation Pathologic compression fracture of lumbar vertebra L5 with retropulsion > W/C AT PRESENT Pneumonia 06/2018 Rheumatoid arthritis Surgical History History of cardiac cath JUNE 2018 > FOR C.P/SOB > [facility] > NO STENTS History of tooth extraction Hx of colonoscopy Family History Grandfather (Maternal) Diabetes Social History Preferred Language: Azeri Communication Ability: Effective Arboreal Scientist Required: No Beliefs That Will Affect Care: None Current Living Situation: Spouse Feels Safe at Home: Yes Smoking Status: Never smoker Second Hand Exposure: No ; Hx Alcohol Use: No Hx Substance Use: No Review of Systems Review of Systems: Unobtainable due to cognitive status Physical Exam Physical Exam: General: Pt confused, agitated and appears uncomfortable, able to be reassured by pt's , WDWN Head: normocephalic, atraumatic Eyes: PERRL, EOM's intact, conjunctiva non-injected, anicteric ENT: normal inspection external ears, nose, mucous membranes dry Neck: supple, trachea midline Lungs: clear, no respiratory distress, no wheezing/rhonchi/rales CV: Tachycardia, P: 120, regular rhythm, no murmur, no pretibial edema Abd: normal BS, soft, no apparent tenderness to palpation Ext: +venous stasis changes to bilateral lower legs without erythema or edema, no noted calf tenderness Neuro: A&O x 3, no focal deficits noted, normal affect Skin: warm, dry; left knee with abrasion without surrounding erythema Results & Data Results & Data ([facility]) Vital Signs (Past 12 Hours) Vital Signs Temp Pulse Resp BP Pulse Ox 07/28/19 10:20 123 H 20 95 07/28/19 10:11 121 H 24 94 07/28/19 10:09 119 H 23 190/104 H 95 07/28/19 10:00 121 H 27 H 181/107 H 93 07/28/19 09:50 122 H 21 96 07/28/19 09:40 122 H 22 93 07/28/19 09:38 122 H 24 168/109 H 07/28/19 09:20 121 H 21 91 07/28/19 09:10 119 H 21 95 07/28/19 09:00 116 H 24 144/90 H 95 07/28/19 08:50 37.3 C 120 H 23 93 07/28/19 08:40 120 H 21 94 07/28/19 08:30 122 H 25 H 142/91 H 92 07/28/19 08:10 121 H 24 89 L 07/28/19 08:00 121 H 23 153/92 H 93 07/28/19 07:50 122 H 21 94 07/28/19 07:47 124 H 24 168/103 H 94 07/28/19 07:40 95 07/28/19 07:36 96 07/28/19 07:35 96 07/28/19 07:31 126 H 23 95 07/28/19 07:30 128 H 21 158/105 H 95 07/28/19 07:04 38.3 C H 126 H 24 158/105 H 96 Laboratory Results Short CBC 07/28/19 Range/Units 07:47 WBC 18.86 H (4.8-10.8) K/uL Hgb 9.9 L (14.0-18.0) g/dL Hct 29.7 L (42-52) % Plt Count 480 H (130-400) K/uL BMP 07/28/19 07:47 Sodium 132 L Potassium 4.2 Chloride 99 Carbon Dioxide 25 BUN 16 Creatinine 1.04 Glucose 90 Calcium 8.6 Cardiac Enzymes 07/28/19 Range/Units 07:47 Troponin I < 0.015 (0-0.045) ng/ml Liver Function 07/28/19 Range/Units 07:47 Total Bilirubin 0.5 (0.2-1) mg/dl AST 110 H (15-37) U/L ALT 29 (12-78) U/L Alkaline Phosphatase 408 H (45-117) U/L Albumin 2.0 L (3.4-5.0) gm/dl Urine 07/28/19 Range/Units 07:47 Urine Color Dark Yellow Urine Appearance Cloudy A (Clear) Urine pH 6.0 (4.5-7.5) Ur Specific [place] 1.022 (1.000-1.030) Urine Protein 2+ H (Negative) Urine Glucose (UA) Negative (Negative) Diagnostic Findings CT HEAD WITHOUT CONTRAST: IMPRESSION: No acute intracranial findings CXR: IMPRESSION: 1. Technically limited supine study 2. Increased density of the right hemithorax likely related to technical factors 3. 9 mm opacity at the left lung base, likely resenting a nipple shadow or vascular summation. This should be reevaluated on subsequent films 4. No overt failure. No evidence of lobar consolidation CT CHEST WITHOUT CONTRAST: IMPRESSION: 1. Findings highly suspicious for metastatic disease with pulmonary, hepatic and osseous involvement. Known underlying malignancy presumed from the presence of the Mediport. Dedicated abdominal imaging could be considered for confirmation of hepatic involvement. 2. Bandlike and wedgelike opacities in the posterior right lung, most likely atelectasis. The appearance is not characteristic of infectious infiltrates. ECG Rate (beats per minute): 125 Rhythm: sinus tachycardia Findings: + nonspecific-ST abn Code Status & VTE Plan VTE Prophylaxis Plan VTE Prophylaxis will be ordered: Yes Supervising Physician Co-Signing Physician Notes Attending addendum He is a 64-year-old male with metastatic GE junction adenocarcinoma, BRAF not on any anticoagulation, ischemic cardiomyopathy with EF of 35 to 40%, chronic lower extremity lymphedema and CKD presented to ER with fever and confusion with agitation for 2 days prior to admission Remains stable during my examination in the medical floor Denies any significant pain, shortness of breath, nausea or vomiting On examination Pleasantly confused and wants to sleep Noted to have tachycardia with 123 bpm and very high blood pressure of 190/104 Chestdecreased breath sound bilaterally with occasional crackles at the bases Abdomen-soft, mildly tender in the hypogastrium Extremities-trace edema bilaterally CORRESPONDENCE RENEW CLERK-alert and awake. Pleasantly confused. Generally weak His admission labs, EKG and imaging studies reviewed Likely has sepsis secondary to UTI, possible pneumonia has been ruled out Has been on intravenous cefepime and doxycycline Agree with assessment and plan as outlined above by NITHYA Hinson DR
[2019-07-28] MEDS ORDERED: NALOXONE HCL 0.4 MG/1 ML VIAL/CARP IV PRN (11:20)
[2019-07-28] MEDS ORDERED: ONDANSETRON INJ 2 MG/ML 2 ML VIAL IV PRN (11:20)
[2019-07-28] MEDS ORDERED: POLYETHYLENE (MIRALAX) 17 GM PACK PO PRN (11:20)
[2019-07-28] MEDS ORDERED: METOPROLOL SUCC 25MG EXT REL TAB PO SCH (11:20)
[2019-07-28] MEDS ORDERED: MoRPHine SULFATE 2 MG/ML CARP IV PRN (11:28)
[2019-07-28] MEDS ORDERED: MoRPHine SULFATE 2 MG/ML CARP ONE (11:33)
[2019-07-28] MEDS: D5W AND NSS 1,000 ML IV SCH ×2 (12:23→23:33)
[2019-07-28] MEDS: METOPROLOL TARTRATE 1 MG/ML VIAL IV SCH ×3 (12:45→23:30)
--- NOTE | 2019-07-28 14:10 | Electrocardiogram Report ---
Test Reason : Blood Pressure : / mmHG Vent. Rate : 125 BPM Atrial Rate : 125 BPM P-R Int : 150 ms QRS Dur : 102 ms QT Int : 310 ms P-R-T Axes : 065 039 065 degrees QTc Int : 447 ms Poor data quality, interpretation may be adversely affected Sinus tachycardia with occasional Premature ventricular complexes Nonspecific ST abnormality Abnormal ECG When compared with ECG of 15-JUL-2018 08:10, Premature atrial complexes are no longer Present Vent. rate has increased BY 53 BPM Confirmed by Karlo Andrews ([id number]) on 07/28/2019 2:10:17 PM Referred By: ED Confirmed By:Karlo Andrews
[2019-07-28] MEDS: ENOXAPARIN INJ 40 MG/0.4 ML SYR SQ SCH (14:13)
[2019-07-28] MEDS: LORazepam 0.5 MG/1 ML VIAL IV PRN ×2 (14:13→22:51)
[2019-07-28] MEDS: CHECK FENTANYL PATCH PLACEMENT SCH ×2 (16:03→23:30)
[2019-07-28] MEDS: CEFEPIME 2,000 MG in SYRINGE 7.5 ML IV SCH ×2 (16:32→23:33)
[2019-07-28] MEDS: DOXYCYCLINE HYCLATE 100 MG in DEXTROSE 5% 100 ML IV SCH (16:39)
[2019-07-28] MEDS: ACETAMINOPHEN 1,000 MG/100 ML VIAL IV PRN (17:20)
[2019-07-28] MEDS ORDERED: MoRPHine SULFATE 2 MG/ML CARP IV STA (17:47)
[2019-07-28] MEDS ORDERED: DOXYCYCLINE HYCLATE 100 MG CAP PO SCH (21:00)
[2019-07-28] MEDS: MoRPHine SULFATE 2 MG/ML CARP IV PRN (21:12)
[2019-07-29] MEDS: MoRPHine SULFATE 2 MG/ML CARP IV PRN ×4 (00:54→21:35)
[2019-07-29] MEDS: ACETAMINOPHEN 1,000 MG/100 ML VIAL IV PRN ×2 (02:44→11:28)
[2019-07-29] MEDS: DOXYCYCLINE HYCLATE 100 MG in DEXTROSE 5% 100 ML IV SCH ×2 (02:45→15:42)
[2019-07-29] MEDS ORDERED: VANCOMYCIN CONSULT ACTIVE PRN (04:48)
[2019-07-29] MEDS ORDERED: VANCOMYCIN HCL 2,750 MG in SODIUM CHLORIDE 0.9% 500 ML IV ONE (05:00)
[2019-07-29] MEDS ORDERED: VANCOMYCIN HCL 1,000 MG in SODIUM CHLORIDE 0.9% 250 ML IV SCH (05:00)
[2019-07-29] MEDS: METOPROLOL TARTRATE 1 MG/ML VIAL IV SCH ×3 (05:02→19:56)
[2019-07-29 05:27] LABS: Basophils # (auto) 0.01 K/uL (0-0.2); Basophils % (auto) 0.1 %; Eosinophils # (auto) 0.13 K/uL (0-0.5); Eosinophils % (auto) 0.9 %; Hematocrit (blood only) 27.6 % (42-52); Hemoglobin 8.8 g/dL (14.0-18.0); Immature Granulocytes # (auto) 0.06 K/uL (0.00-0.02); Immature Granulocytes % (auto) 0.4 %; Lymphocytes # (auto) 0.34 K/uL (1.2-3.4); Lymphocytes % (auto) 2.4 %; Mean Corpuscular Hemoglobin 26.5 pg (25-34); Mean Corpuscular Hgb Conc 31.9 g/dL (32-36); Mean Corpuscular Volume 83.1 fL (80-100); Mean Platelet Volume 8.7 fL (7.4-10.4); Monocytes # (auto) 1.33 K/uL (0.11-0.59); Monocytes % (auto) 9.5 %; Neutrophils # (auto) 12.11 K/uL (1.4-6.5); Neutrophils % (auto) 86.7 %; Platelet Count 433 K/uL (130-400); RDW Coefficient of Variation 15.9 % (11.5-14.5); RDW Standard Deviation 48.6 fL (36.4-46.3); Red Blood Count 3.32 M/uL (4.7-6.1); White Blood Count 13.98 K/uL (4.8-10.8)
[2019-07-29 05:41] LABS: INR 1.3 (0.9-1.1); Prothrombin Time 13.6 Seconds (9.0-12.0)
[2019-07-29 06:05] LABS: Albumin Level 1.8 gm/dl (3.4-5.0); BUN Creatinine Ratio 18.1 (10-20); Calcium 8.5 mg/dl (8.5-10.1); Creatinine Clr Calc Pharmacy 123.6 ml/min; Est GFR (Non-African American) 91.4; Potassium 3.7 mmol/L (3.5-5.1)
[2019-07-29 06:08] LABS: Albumin Globulin Ratio 0.4 (0.9-2); Bilirubin,Total 0.5 mg/dl (0.2-1); Globulin 4.6 gm/dl (2.5-4.0); Total Protein 6.4 gm/dl (6.4-8.2)
[2019-07-29] MEDS: CHECK FENTANYL PATCH PLACEMENT SCH ×2 (08:00→15:42)
[2019-07-29] MEDS: CEFEPIME 2,000 MG in SYRINGE 7.5 ML IV SCH ×2 (08:02→15:41)
--- NOTE | 2019-07-29 10:52 | Pharmacy Report ---
Pharmacy Abx Initial Consult - Date of Service July 29, 2019 - Pharmacy Dosing Scope Date of Consult: 07/29/19 Consultation requested by: Dr. Anaya Pharmacy is consulted to initiate Vancomycin IV dosing therapy, order appropriate labs and adjust drug dose/frequency. - Subjective The patient is a 64 year old M admitted on 07/28/19 10:04. - Objective Height: 6 ft 5 in Weight: 117.1 kg Vital Signs (Past 12hrs): Vital Signs Temp Pulse Pulse Resp BP BP Pulse Ox 07/29/19 07:25 102 H 07/29/19 07:21 37.5 C 105 H 31 H 171/114 H 98 07/29/19 05:02 110 H 143/88 H 07/29/19 03:25 37.7 C H 103 H 23 143/88 H 96 07/29/19 02:30 38.2 C H 07/28/19 23:35 37.4 C 109 H 19 139/94 98 07/28/19 23:30 113 H 149/98 H Lab Results (24hrs): Laboratory Tests (24 Hours) 07/29/19 07/29/19 05:08 05:08 WBC 13.98 H Neut # (Auto) 12.11 H Creatinine 0.88 Est Cr Clr Drug Dosing 123.6 Micro Results: 07/28/19 07:47 Urine Culture - Pending Urine,Indwelling Cath - Risk Factors for Resistance * Hospitalization for 48 hours or more within the past 90 days * Immunocompromised - RA on Plaquenil. Patient with adenocarcinoma with mets. - Assessment & Plan Assessment 64 year old M admitted who was admitted here in May for cellulitis is currently admitted for fever, bacteremia (preliminary blood cultures show G+ cocci). He was on Doxycycline IV therapy last month during admission. Patient had radiation therapy around 2 to 3 weeks ago. Currently ordered broad spectrum antibiotic coverage with Vancomycin + Doxycycline IV + Cefepime 2 gm IV Q8h. Plan Vancomycin for treatment of Bacteremia and possible Pneumonia. Vancomycin IV * Estimated PK Parameters: Vd 0.7 L/kg, Eric 0.087 hr-1, t1/2 8 hr * Loading dose: 2750 mg IV (23 mg/kg) x 1 given early today. * Maintenance dose: 1750 mg IV (15 mg/kg) every 12 hours ordered. * Goal trough level: 15 to 20 mcg/mL * Trough ordered for 07/30/19 before dose at 1600. Pharmacy will continue to follow and will adjust dose/frequency as necessary. Thank you.
--- NOTE | 2019-07-29 11:01 | Hospitalist Progress Note ---
Date of Service July 29, 2019 Assessment & Plan (1) Sepsis: With gram-positive bacteremia likely secondary to UTI and doubt any pneumonia Blood culture is growing gram-positive cocci in clusters and urine culture is pending Has been on intravenous cefepime and vancomycin Clinically a little bit better today and will continue the current medications High blood pressure His blood pressure remains elevated and this morning it was 171/114 Also on metoprolol succinate 25 mg twice daily as an outpatient Has been getting IV Lopressor 5 mg every 6 hours to control the blood pressure Likely contributed by increasing pain (2) Metabolic encephalopathy: Confusion and agitation x 2 days in setting of fever and UTI -In ER given Ativan with decreased agitation -Monitor closely -Ativan prn agitation, careful administration with his chronic narcotic pain medication -As above (3) UTI (urinary tract infection): Pt is 64 y/o M with PMH 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 In ER T: 38.3C, P: 126, R: 24, BP: 158/105, 96% on RA dropped to 89% on RA after Ativan given up to 93% on RA. WBC: 18, Lacatate: 1.5, Procalcitonin: 4.4, negative influenza PCR, UA: 2+leuk esterase, >30 WBC, 2+bacteria CT HEAD WITHOUT CONTRAST: No acute intracranial findings CT CHEST WITHOUT CONTRAST: 1. Findings highly suspicious for metastatic disease with pulmonary, hepatic and osseous involvement. Known underlying malignancy presumed from the presence of the Mediport. Dedicated abdominal imaging could be considered for confirmation of hepatic involvement. 2. Bandlike and wedgelike opacities in the posterior right lung, most likely atelectasis. The appearance is not characteristic of infectious infiltrates. 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 Has not started chemo. Follows with Dr Blank Had discussion in past and wants to continue to pursue full treatment Today CT Chest: Findings highly suspicious for metastatic disease with pulmonary involvement (6) Paroxysmal atrial fibrillation: H/O PAF. Not on Coumadin Sinus tachycardia currently -Monitor on tele -heart rate remains elevated at around 110s (7) CKD (chronic kidney disease), stage III: Cr: 1.0. Baseline Cr: ~1.6 -Avoid nephrotoxic agents when possible -Monitor renal functions -Kidney function is better today (8) Nonischemic cardiomyopathy: H/O ischemic cardiomyopathy EF: 35-40% in 06/2018 with EF>70% in 10/2018 No signs of fluid overload (9) Chronic anemia: H/H: 9.9/29. Baseline Hgb~12 No signs of bleeding -Hemoglobin is 8.8 as of 07/29/2019: Multifactorial without any evidence of overt bleeding and likely secondary to infection and cancer with metastasis (10) Rheumatoid arthritis: -Continue Plaquenil DVT Prophylaxis -Lovenox SQ Admit tele Full Code as per discussion with pt's . Pt was full code prior admission also Follows with Dr Jaquez for routine care Discussed with the and updated the current condition of her Admission and Anticipated Discharge Date Admission Date: July 28, 2019 Subjective The patient was seen and examined in telemetry unit He is a 64-year-old male with metastatic GE junction adenocarcinoma, BRAF not on any anticoagulation, ischemic cardiomyopathy with EF of 35 to 40%, chronic lower extremity lymphedema and CKD presented to ER with fever and confusion with agitation for 2 days prior to admission He seems to be more alert and awake this morning He denies any significant pain but moans at times No fever and/or chills Review of Systems Review of Systems: Unobtainable due to cognitive status Physical Exam Physical Exam: Lying in bed with minimal distress Constitutional: well developed, well nourished, + acute distress (Minimal due to shortness of breath), + ill appearing and + obese Eyes: PERRL, conjunctivae normal, anicteric sclerae ENMT: external ear and nose normal, oropharynx normal Neck: trachea midline, no thyromegaly Respiratory: normal respiratory effort and + respiratory distress (Minimal distress at rest) Auscultation: lungs clear to auscultation bilaterally and + diminished lung sounds Cardiovascular: Rate/Rhythm: regular rate, regular rhythm and + tachycardic Heart Sounds: no murmur Gastrointestinal (Abdomen): Inspection/Auscultation: abdomen normal to inspection and normal bowel sounds Percussion/Palpation: abdomen soft; abdomen nontender Musculoskeletal: No acute arthritis in any joints Neurologic: moves all extremities Speech / Cognition: normal speech Generally weak and lethargic Lymphatic: no cervical or axillary lymphadenopathy Results & Data Results & Data ([facility]) Vital Signs (Past 12 Hours) Vital Signs Temp Pulse Pulse Resp BP BP Pulse Ox 07/29/19 07:25 102 H 07/29/19 07:21 37.5 C 105 H 31 H 171/114 H 98 07/29/19 05:02 110 H 143/88 H 07/29/19 03:25 37.7 C H 103 H 23 143/88 H 96 07/29/19 02:30 38.2 C H 07/28/19 23:35 37.4 C 109 H 19 139/94 98 07/28/19 23:30 113 H 149/98 H Laboratory Results Short CBC 07/29/19 Range/Units 05:08 WBC 13.98 H (4.8-10.8) K/uL Hgb 8.8 L (14.0-18.0) g/dL Hct 27.6 L (42-52) % Plt Count 433 H (130-400) K/uL BMP 07/29/19 05:08 Sodium 135 L Potassium 3.7 Chloride 106 Carbon Dioxide 25 BUN 16 Creatinine 0.88 Glucose 104 H Calcium 8.5 Liver Function 07/29/19 Range/Units 05:08 Total Bilirubin 0.5 (0.2-1) mg/dl AST 57 H (15-37) U/L ALT 21 (12-78) U/L Alkaline Phosphatase 321 H (45-117) U/L Albumin 1.8 L (3.4-5.0) gm/dl Medications Administered Current Inpatient Medications Acetaminophen (Tylenol) 650 mg PO Q4H PRN PRN Reason: Pain or Fever Stop: 08/27/19 11:19 Enoxaparin Sodium (Lovenox) 40 mg SQ Q24H [facility]ANE Stop: 08/27/19 11:59 Last Admin: 07/28/19 14:13 Dose: 40 mg Documented by: Fentanyl (Duragesic) 50 mcg TD Q72H JANE; Protocol Stop: 08/13/19 17:59 Heparin Sodium (Porcine) (Heparin Sod 100 Unit/Ml Flush) 5 ml FLUSH PRN PRN PRN Reason: Flush Stop: 08/27/19 23:44 Lorazepam (Ativan) 0.5 mg in 1 mls @ 0.5 mls/min IV Q8H PRN PRN Reason: Agitation Stop: 08/27/19 11:19 Last Admin: 07/28/19 22:51 Dose: 0.5 mls/min Documented by: Dextrose/Sodium Chloride (D5w And Nss) 1,000 mls @ 80 mls/hr IV .[id number] JANE Stop: 07/29/19 12:19 Last Admin: 07/28/19 23:33 Dose: 80 mls/hr Documented by: Cefepime HCl 2,000 mg/ Syringe 20 mls @ 5.5 mls/min IV Q8H JANE; Protocol Stop: 07/30/19 15:59 Last Admin: 07/29/19 08:02 Dose: 5.5 mls/min Documented by: Doxycycline Hyclate 100 mg/ (Dextrose) 110 mls @ 50 mls/hr IV Q12H [facility]ANE; Protocol Stop: 08/04/19 15:59 Last Infusion: 07/29/19 05:13 Dose: Infused Documented by: Acetaminophen (Ofirmev) 1,000 mg in 100 mls @ 400 mls/hr IV Q8H PRN PRN Reason: Pain or Fever Stop: 07/31/19 15:41 Last Infusion: 07/29/19 03:22 Dose: Infused Documented by: Vancomycin HCl 1,750 mg/ (Sodium Chloride) 535 mls @ 200 mls/hr IV Q12H [facility]ANE Stop: 08/12/19 15:59 Metoprolol Tartrate (Lopressor) 5 mg IV Q6 [facility] Stop: 08/27/19 11:59 Last Admin: 07/29/19 05:02 Dose: 5 mg Documented by: Miscellaneous (Fentanyl Patch Remove & Waste) 1 ea N/A Q3D JANE Stop: 08/30/19 10:29 Miscellaneous (Fentanyl Patch Check Placement) 1 ea N/A QS JANE Stop: 08/27/19 15:59 Last Admin: 07/29/19 08:00 Dose: 1 ea Documented by: Miscellaneous (Order Awaiting Action) 1 ea N/A QS JANE Stop: 08/27/19 15:59 Last Admin: 07/29/19 08:05 Dose: Not Given Documented by: Miscellaneous Information (Consult) 1 ea N/A UD PRN PRN Reason: Consult Stop: 08/28/19 04:47 Morphine Sulfate (Morphine Sulfate Ir) 15 mg PO Q6H PRN PRN Reason: Severe Pain Stop: 08/11/19 11:19 Morphine Sulfate (Morphine Sulfate) 4 mg IV Q4H PRN PRN Reason: Pain Stop: 08/11/19 11:27 Last Admin: 07/29/19 07:57 Dose: 4 mg Documented by: Naloxone HCl (Narcan) 0.1 mg IV UD PRN PRN Reason: Opiate Overdose Stop: 08/27/19 11:19 Ondansetron HCl (Zofran) 4 mg IV Q6H PRN PRN Reason: Nausea Stop: 08/27/19 11:19 Oxycodone HCl (Roxicodone Immediate Rel) 10 mg PO Q4H PRN PRN Reason: Moderate Pain Stop: 08/11/19 11:19 Polyethylene Glycol (Miralax Powder Packet) 17 gm PO DAILY PRN PRN Reason: Constipation Stop: 08/27/19 11:19
[2019-07-29] MEDS ORDERED: NALOXONE 4 MG INTNAS PRN (11:02)
[2019-07-29] MEDS ORDERED: PSYLLIUM 58.6% POWDER PACKET PO PRN (11:16)
[2019-07-29] MEDS: GABAPENTIN 300 MG CAP PO SCH ×2 (11:32→20:51)
[2019-07-29] MEDS: ENOXAPARIN INJ 40 MG/0.4 ML SYR SQ SCH (11:33)
--- NOTE | 2019-07-29 13:10 | Electrocardiogram Report ---
Test Reason : Blood Pressure : / mmHG Vent. Rate : 103 BPM Atrial Rate : 103 BPM P-R Int : 158 ms QRS Dur : 114 ms QT Int : 350 ms P-R-T Axes : 060 048 063 degrees QTc Int : 458 ms Poor data quality, interpretation may be adversely affected Sinus tachycardia with Premature atrial complexes Otherwise normal ECG When compared with ECG of 28-JUL-2019 07:27, Premature ventricular complexes are no longer Present Premature atrial complexes are now Present Confirmed by Karlo Andrews ([id number]) on 07/29/2019 1:09:57 PM Referred By: REFERRED SELF Confirmed By:Karlo Andrews
[2019-07-29] MEDS: VANCOMYCIN HCL 1,750 MG in SODIUM CHLORIDE 0.9% 500 ML IV SCH (15:42)
[2019-07-29] MEDS: MoRPHine SULFATE IR 15 MG TAB (IMMEDIATE RELEASE) PO PRN (17:14)
[2019-07-29] MEDS: HEPARIN 100 UNIT/ML 5ML FLUSH FLUSH PRN (19:57)
[2019-07-30] MEDS: METOPROLOL TARTRATE 1 MG/ML VIAL IV SCH ×5 (01:30→23:54)
[2019-07-30] MEDS: CEFEPIME 2,000 MG in SYRINGE 7.5 ML IV SCH ×2 (01:31→07:38)
[2019-07-30] MEDS: MoRPHine SULFATE IR 15 MG TAB (IMMEDIATE RELEASE) PO PRN ×2 (01:45→21:31)
[2019-07-30] MEDS: CHECK FENTANYL PATCH PLACEMENT SCH ×4 (01:50→23:54)
[2019-07-30] MEDS: MoRPHine SULFATE 2 MG/ML CARP IV PRN ×2 (03:50→18:02)
[2019-07-30] MEDS: VANCOMYCIN HCL 1,750 MG in SODIUM CHLORIDE 0.9% 500 ML IV SCH ×2 (03:55→17:57)
[2019-07-30] MEDS: DOXYCYCLINE HYCLATE 100 MG in DEXTROSE 5% 100 ML IV SCH (03:55)
[2019-07-30 06:00] LABS: Basophils # (auto) 0.02 K/uL (0-0.2); Basophils % (auto) 0.2 %; Eosinophils # (auto) 0.47 K/uL (0-0.5); Eosinophils % (auto) 3.6 %; Hematocrit (blood only) 28.5 % (42-52); Hemoglobin 9.1 g/dL (14.0-18.0); Immature Granulocytes # (auto) 0.07 K/uL (0.00-0.02); Immature Granulocytes % (auto) 0.5 %; Lymphocytes % (auto) 3.8 %; Mean Corpuscular Hemoglobin 26.3 pg (25-34); Mean Corpuscular Hgb Conc 31.9 g/dL (32-36); Mean Corpuscular Volume 82.4 fL (80-100); Mean Platelet Volume 8.7 fL (7.4-10.4); Monocytes # (auto) 1.35 K/uL (0.11-0.59); Monocytes % (auto) 10.3 %; Neutrophils # (auto) 10.65 K/uL (1.4-6.5); Neutrophils % (auto) 81.6 %; Platelet Count 472 K/uL (130-400); RDW Coefficient of Variation 15.8 % (11.5-14.5); RDW Standard Deviation 47.6 fL (36.4-46.3); Red Blood Count 3.46 M/uL (4.7-6.1); White Blood Count 13.06 K/uL (4.8-10.8)
[2019-07-30 06:26] LABS: BUN Creatinine Ratio 13.9 (10-20); Calcium 8.6 mg/dl (8.5-10.1); Creatinine Clr Calc Pharmacy 132.8 ml/min; Est GFR (African American) 109.6; Est GFR (Non-African American) 94.6; Magnesium 1.9 mg/dl (1.8-2.4); Potassium 3.6 mmol/L (3.5-5.1)
[2019-07-30] MEDS: GABAPENTIN 300 MG CAP PO SCH ×3 (07:38→21:32)
[2019-07-30] MEDS: OXYCODONE HCL IR 5 MG TAB (IMMEDIATE RELEASE) PO PRN (07:49)
[2019-07-30] MEDS ORDERED: POTASSIUM PHOS 3 MMOL/1 ML INFUSION IV STA (07:50)
[2019-07-30] MEDS ORDERED: POTASSIUM PHOSPHATE 24 MMOL in SODIUM CHLORIDE 0.9% 500 ML IV ONE (08:00)
--- NOTE | 2019-07-30 09:29 | Hospitalist Progress Note ---
Date of Service July 30, 2019 Assessment & Plan (1) Sepsis: With coagulase negative Staphylococcus bacteremia likely secondary to UTI and doubt any pneumonia Blood culture is growing coagulase-negative staph and urine culture is growing enterococcus faecalis Has been on intravenous cefepime and vancomycin Clinically a little bit better today and will continue the current medications We will discontinue intravenous cefepime and continue with IV vancomycin Continue oral doxy to cover possible atypicals in lungs High blood pressure His blood pressure remains elevated and this morning it was 171/114 Also on metoprolol succinate 25 mg twice daily as an outpatient Has been getting IV Lopressor 5 mg every 6 hours to control the blood pressure Likely contributed by increasing pain Blood pressure is controlled (2) Metabolic encephalopathy: Confusion and agitation x 2 days in setting of fever and UTI -In ER given Ativan with decreased agitation -Monitor closely -Ativan prn agitation, careful administration with his chronic narcotic pain me dication -As above-confusion resolved -Back to his baseline (3) UTI (urinary tract infection): Pt is 64 y/o M with PMH 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 In ER T: 38.3C, P: 126, R: 24, BP: 158/105, 96% on RA dropped to 89% on RA after Ativan given up to 93% on RA. WBC: 18, Lacatate: 1.5, Procalcitonin: 4.4, negative influenza PCR, UA: 2+leuk esterase, >30 WBC, 2+bacteria CT HEAD WITHOUT CONTRAST: No acute intracranial findings CT CHEST WITHOUT CONTRAST: 1. Findings highly suspicious for metastatic disease with pulmonary, hepatic and osseous involvement. Known underlying malignancy presumed from the presence of the Mediport. Dedicated abdominal imaging could be considered for confirmation of hepatic involvement. 2. Bandlike and wedgelike opacities in the posterior right lung, most likely atelectasis. The appearance is not characteristic of infectious infiltrates. 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 Has not started chemo. Follows with Dr Blank Had discussion in past and wants to continue to pursue full treatment Today CT Chest: Findings highly suspicious for metastatic disease with pulmonary involvement (6) Paroxysmal atrial fibrillation: H/O PAF. Not on Coumadin Sinus tachycardia currently -Monitor on tele -heart rate remains elevated at around 110s (7) CKD (chronic kidney disease), stage III: Cr: 1.0. Baseline Cr: ~1.6 -Avoid nephrotoxic agents when possible -Monitor renal functions -Kidney function is better today -Renal function is normalized (8) Nonischemic cardiomyopathy: H/O ischemic cardiomyopathy EF: 35-40% in 06/2018 with EF>70% in 10/2018 No signs of fluid overload (9) Chronic anemia: H/H: 9.9/29. Baseline Hgb~12 No signs of bleeding -Hemoglobin is 8.8 as of 07/29/2019: Multifactorial without any evidence of overt bleeding and likely secondary to infection and cancer with metastasis (10) Rheumatoid arthritis: -Continue Plaquenil DVT Prophylaxis -Lovenox SQ Admit tele Full Code as per discussion with pt's . Pt was full code prior admission also Follows with Dr Jaquez for routine care Will discuss with his in the afternoon Admission and Anticipated Discharge Date Admission Date: July 28, 2019 Subjective The patient was seen and examined in telemetry unit He is a 64-year-old male with metastatic GE junction adenocarcinoma, BRAF not on any anticoagulation, ischemic cardiomyopathy with EF of 35 to 40%, chronic lower extremity lymphedema and CKD presented to ER with fever and confusion with agitation for 2 days prior to admission He seems to be more alert and awake this morning He denies any significant pain but moans at times No fever and/or chills 07/30/2019 The patient was seen and examined in telemetry unit He has been feeling a lot better today and does not seems to be confused Denies any significant pain but has weakness No fever, chills or sweating Review of Systems 2 Review of Systems: All systems reviewed and are unremarkable except as noted below Neurologic: no confusion Physical Exam Physical Exam: Lying in bed without any distress Constitutional: well developed, well nourished, + acute distress (Minimal due to shortness of breath), + ill appearing and + obese Eyes: PERRL, conjunctivae normal, anicteric sclerae ENMT: external ear and nose normal, oropharynx normal Neck: trachea midline, no thyromegaly Respiratory: normal respiratory effort and + respiratory distress (Minimal distress at rest) Auscultation: lungs clear to auscultation bilaterally and + diminished lung sounds Cardiovascular: Rate/Rhythm: regular rate, regular rhythm and + tachycardic Heart Sounds: no murmur Gastrointestinal (Abdomen): Inspection/Auscultation: abdomen normal to inspection and normal bowel sounds Percussion/Palpation: abdomen soft; abdomen nontender Musculoskeletal: No acute arthritis in any joints Neurologic: moves all extremities Speech / Cognition: normal speech Lymphatic: no cervical or axillary lymphadenopathy Results & Data Results & Data ([facility]) Vital Signs (Past 12 Hours) Vital Signs Temp Pulse Pulse Resp BP BP Pulse Ox 07/30/19 07:34 37.3 C 98 H 25 H 142/96 H 93 07/30/19 06:27 108 H 154/88 H 07/30/19 03:53 37.8 C H 105 H 30 H 154/88 H 93 07/30/19 01:30 112 H 149/102 H 07/30/19 00:00 38.2 C H 108 H 114 H 24 149/102 H 94 07/29/19 21:47 97 H Laboratory Results Short CBC 07/30/19 Range/Units 05:49 WBC 13.06 H (4.8-10.8) K/uL Hgb 9.1 L (14.0-18.0) g/dL Hct 28.5 L (42-52) % Plt Count 472 H (130-400) K/uL BMP 07/30/19 05:49 Sodium 133 L Potassium 3.6 Chloride 102 Carbon Dioxide 25 BUN 11 Creatinine 0.81 Glucose 94 Calcium 8.6 Medications Administered Current Inpatient Medications Acetaminophen (Tylenol) 650 mg PO Q4H PRN PRN Reason: Pain or Fever Stop: 08/27/19 11:19 Doxycycline Hyclate (Vibramycin) 100 mg PO BID [facility]; Protocol Stop: 08/04/19 20:59 Enoxaparin Sodium (Lovenox) 40 mg SQ Q24H [facility] Stop: 08/27/19 11:59 Last Admin: 07/29/19 11:33 Dose: 40 mg Documented by: Fentanyl (Duragesic) 50 mcg TD Q72H [facility]; Protocol Stop: 08/13/19 17:59 Gabapentin (Neurontin) 900 mg PO DAILY@2000 [facility] Stop: 08/28/19 19:59 Last Admin: 07/29/19 20:51 Dose: 900 mg Documented by: Gabapentin (Neurontin) 600 mg PO BID@0800,1200 [facility] Stop: 08/28/19 11:59 Last Admin: 07/30/19 07:38 Dose: 600 mg Documented by: Heparin Sodium (Porcine) (Heparin Sod 100 Unit/Ml Flush) 5 ml FLUSH PRN PRN PRN Reason: Flush Stop: 08/27/19 23:44 Last Admin: 07/29/19 19:57 Dose: 5 ml Documented by: Lorazepam (Ativan) 0.5 mg in 1 mls @ 0.5 mls/min IV Q8H PRN PRN Reason: Agitation Stop: 08/27/19 11:19 Last Admin: 07/28/19 22:51 Dose: 0.5 mls/min Documented by: Acetaminophen (Ofirmev) 1,000 mg in 100 mls @ 400 mls/hr IV Q8H PRN PRN Reason: Pain or Fever Stop: 07/31/19 15:41 Last Infusion: 07/29/19 12:36 Dose: Infused Documented by: Vancomycin HCl 1,750 mg/ (Sodium Chloride) 535 mls @ 200 mls/hr IV Q12H [facility] Stop: 08/12/19 15:59 Last Infusion: 07/30/19 06:39 Dose: Infused Documented by: Potassium Phosphate 24 mmol/ (Sodium Chloride) 508 mls @ 88 mls/hr IV ONE ONE Stop: 07/30/19 13:46 Metoprolol Tartrate (Lopressor) 5 mg IV Q6 [facility] Stop: 08/27/19 11:59 Last Admin: 07/30/19 06:27 Dose: 5 mg Documented by: Miscellaneous (Fentanyl Patch Remove & Waste) 1 ea N/A Q3D [facility] Stop: 08/30/19 10:29 Miscellaneous (Fentanyl Patch Check Placement) 1 ea N/A QS [facility] Stop: 08/27/19 15:59 Last Admin: 07/30/19 07:39 Dose: 1 ea Documented by: Miscellaneous (Order Awaiting Action) 1 ea N/A QS JANE Stop: 08/27/19 15:59 Last Admin: 07/30/19 07:39 Dose: Not Given Documented by: Miscellaneous Information (Consult) 1 ea N/A UD PRN PRN Reason: Consult Stop: 08/28/19 04:47 Morphine Sulfate (Morphine Sulfate Ir) 15 mg PO Q6H PRN PRN Reason: Severe Pain Stop: 08/11/19 11:19 Last Admin: 07/30/19 01:45 Dose: 15 mg Documented by: Morphine Sulfate (Morphine Sulfate) 4 mg IV Q4H PRN PRN Reason: Pain Stop: 08/11/19 11:27 Last Admin: 07/30/19 03:50 Dose: 4 mg Documented by: Naloxone HCl (Narcan) 0.1 mg IV UD PRN PRN Reason: Opiate Overdose Stop: 08/27/19 11:19 Ondansetron HCl (Zofran) 4 mg IV Q6H PRN PRN Reason: Nausea Stop: 08/27/19 11:19 Oxycodone HCl (Roxicodone Immediate Rel) 10 mg PO Q4H PRN PRN Reason: Moderate Pain Stop: 08/11/19 11:19 Last Admin: 07/30/19 07:49 Dose: 10 mg Documented by: Polyethylene Glycol (Miralax Powder Packet) 17 gm PO DAILY PRN PRN Reason: Constipation Stop: 08/27/19 11:19 Psyllium Hydrophilic Mucilloid (Metamucil) 1 pkt PO DAILY PRN PRN Reason: diarrhea Stop: 08/28/19 11:15
[2019-07-30] MEDS: ENOXAPARIN INJ 40 MG/0.4 ML SYR SQ SCH (12:36)
--- NOTE | 2019-07-30 14:09 | XRay Report ---
XR hip RT min 2V CLINICAL HISTORY: 64 years-old Male presenting with Osteoarthritis. TECHNIQUE: Frontal and frog-leg lateral views of the right hip were obtained. COMPARISON: Nondiagnostic CT of the pelvis from 06/16/2019. FINDINGS: Left hip joint congruent. Joint space is preserved. No acute fracture or malalignment. No advanced de generative change. No radiographic soft tissue abnormality. IMPRESSION: No acute osseous injury or advanced degenerative change. ACT 112: Negative or not required by law. Electronically signed by: Justin Gtz M.D. 07/30/2019 2:08 PM
[2019-07-30] MEDS ORDERED: VANCOMYCIN TROUGH ONE (15:30)
--- NOTE | 2019-07-30 17:27 | Pharmacy Report ---
Pharmacy Abx Dose Short Note - Date of Service July 30, 2019 - Assessment & Plan Assessment 64 year old M receiving Vancomycin 1750mg Q12H IV for treatment of bacteremia 2/2 UTI Day # 2 of antimicrobial therapy. Laboratory Tests 07/30/19 15:25 Vancomycin Trough 15.7 Plan Vancomycin * Trough level of 15.7 mcg/mL is therapeutic. * Continue dose of 1750 mg IV every 12 hours. * Goal trough level : 15 to 20 mcg/mL * Please note that this level was obtained with the 3rd dose and is not reflective of steady state -- anticipate that steady state level would be slightly higher than this, but not be supratherapeutic. * Will order another level when appropriate. Pharmacy will continue to follow and will adjust dose/frequency as necessary. Thank you.
[2019-07-30] MEDS: fentaNYL 50 MCG/HR TDSY TD SCH (18:56)
[2019-07-30] MEDS: DOXYCYCLINE HYCLATE 100 MG CAP PO SCH (21:32)
[2019-07-30] MEDS: HEPARIN 100 UNIT/ML 5ML FLUSH FLUSH PRN (23:57)
[2019-07-31] MEDS: MoRPHine SULFATE 2 MG/ML CARP IV PRN ×2 (03:13→07:52)
[2019-07-31] MEDS: VANCOMYCIN HCL 1,750 MG in SODIUM CHLORIDE 0.9% 500 ML IV SCH (03:13)
[2019-07-31] MEDS: METOPROLOL TARTRATE 1 MG/ML VIAL IV SCH ×3 (04:59→18:39)
[2019-07-31] MEDS: MoRPHine SULFATE IR 15 MG TAB (IMMEDIATE RELEASE) PO PRN ×3 (04:59→18:33)
[2019-07-31] MEDS ORDERED: MoRPHine SULFATE 4 MG/ML 1 ML CARP\\VIAL ONE (07:49)
[2019-07-31] MEDS: CHECK FENTANYL PATCH PLACEMENT SCH ×2 (07:53→16:46)
[2019-07-31] MEDS: ACETAMINOPHEN 1,000 MG/100 ML VIAL IV PRN (07:53)
[2019-07-31] MEDS: DOXYCYCLINE HYCLATE 100 MG CAP PO SCH (07:54)
[2019-07-31] MEDS: GABAPENTIN 300 MG CAP PO SCH ×3 (07:54→21:28)
--- NOTE | 2019-07-31 10:11 | Hospitalist Progress Note ---
Date of Service July 31, 2019 Assessment & Plan (1) Sepsis: With coagulase negative Staphylococcus bacteremia likely secondary to UTI and doubt any pneumonia Blood culture is growing coagulase-negative staph and urine culture is growing enterococcus faecalis Has been on intravenous cefepime and vancomycin Clinically a little bit better today and will continue the current medications We will discontinue intravenous cefepime and continue with IV vancomycin Continue oral doxy to cover possible atypicals in lungs Clinically much better Awaiting blood culture and directions for use of antibiotics High blood pressure His blood pressure remains elevated and this morning it was 171/114 Also on metoprolol succinate 25 mg twice daily as an outpatient Has been getting IV Lopressor 5 mg every 6 hours to control the blood pressure Likely contributed by increasing pain Blood pressure remains elevated Will increase metoprolol succinate to 50 mg twice daily (2) Metabolic encephalopathy: Confusion and agitation x 2 days in setting of fever and UTI -In ER given Ativan with decreased agitation -Monitor closely -Ativan prn agitation, careful administration with his chronic narcotic pain medication -As above-confusion resolved -Back to his baseline-resolved (3) UTI (urinary tract infection): Pt is 64 y/o M with PMH 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 In ER T: 38.3C, P: 126, R: 24, BP: 158/105, 96% on RA dropped to 89% on RA after Ativan given up to 93% on RA. WBC: 18, Lacatate: 1.5, Procalcitonin: 4.4, negative influenza PCR, UA: 2+leuk esterase, >30 WBC, 2+bacteria CT HEAD WITHOUT CONTRAST: No acute intracranial findings CT CHEST WITHOUT CONTRAST: 1. Findings highly suspicious for metastatic disease with pulmonary, hepatic and osseous involvement. Known underlying malignancy presumed from the presence of the Mediport. Dedicated abdominal imaging could be considered for confirmation of hepatic involvement. 2. Bandlike and wedgelike opacities in the posterior right lung, most likely atelectasis. The appearance is not characteristic of infectious infiltrates. 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 Has not started chemo. Follows with Dr Blank Had discussion in past and wants to continue to pursue full treatment Today CT Chest: Findings highly suspicious for metastatic disease with pulmonary involvement Chronic pain Has been under care of palliative care He has been on fentanyl patch and oral narcotics Discussed with Dr. Perdomo We will get PT and OT evaluation before discharge Further adjustment of pain medications will be done as an outpatient (6) Paroxysmal atrial fibrillation: H/O PAF. Not on Coumadin Sinus tachycardia currently -Monitor on tele -heart rate remains elevated at around 110s (7) CKD (chronic kidney disease), stage III: Cr: 1.0. Baseline Cr: ~1.6 -Avoid nephrotoxic agents when possible -Monitor renal functions -Kidney function is better today -Renal function is normalized (8) Nonischemic cardiomyopathy: H/O ischemic cardiomyopathy EF: 35-40% in 06/2018 with EF>70% in 10/2018 No signs of fluid overload (9) Chronic anemia: H/H: 9.9/29. Baseline Hgb~12 No signs of bleeding -Hemoglobin is 8.8 as of 07/29/2019: Multifactorial without any evidence of overt bleeding and likely secondary to infection and cancer with metastasis (10) Rheumatoid arthritis: -Continue Plaquenil DVT Prophylaxis -Lovenox SQ Admit tele Full Code as per discussion with pt's . Pt was full code prior admission also Follows with Dr Jaquez for routine care Discussed with the Admission and Anticipated Discharge Date Admission Date: July 28, 2019 Subjective The patient was seen and examined in telemetry unit He is a 64-year-old male with metastatic GE junction adenocarcinoma, BRAF not on any anticoagulation, ischemic cardiomyopathy with EF of 35 to 40%, chronic lower extremity lymphedema and CKD presented to ER with fever and confusion with agitation for 2 days prior to admission He seems to be more alert and awake this morning He denies any significant pain but moans at times No fever and/or chills 07/30/2019 The patient was seen and examined in telemetry unit He has been feeling a lot better today and does not seems to be confused Denies any significant pain but has weakness No fever, chills or sweating 07/31/2019 The patient was seen and examined in telemetry unit He has been feeling lot better and denies any more confusion Remains generally weak and no pain at rest No fever and/or chills Review of Systems Review of Systems: All systems reviewed and are unremarkable except as noted below Musculoskeletal: Complains pain at the back right hip with movement Physical Exam Physical Exam: Lying in bed without any distress Constitutional: well developed, well nourished, + acute distress (Minimal due to shortness of breath), + ill appearing and + obese Eyes: PERRL, conjunctivae normal, anicteric sclerae ENMT: external ear and nose normal, oropharynx normal Neck: trachea midline, no thyromegaly Respiratory: normal respiratory effort and + respiratory distress (Minimal distress at rest) Auscultation: lungs clear to auscultation bilaterally and + diminished lung sounds Cardiovascular: Rate/Rhythm: regular rate, regular rhythm and + tachycardic Heart Sounds: no murmur Gastrointestinal (Abdomen): Inspection/Auscultation: abdomen normal to inspection and normal bowel sounds Percussion/Palpation: abdomen soft; abdomen nontender Musculoskeletal: No acute arthritis in any joints Neurologic: moves all extremities Speech / Cognition: normal speech Psychiatric: Orientation: alert and oriented x 3 Mood: + depressed mood Lymphatic: no cervical or axillary lymphadenopathy Results & Data Results & Data ([facility]) Vital Signs (Past 12 Hours) Vital Signs Temp Pulse Pulse Resp BP Pulse Ox 07/31/19 07:41 37.1 C 105 H 16 147/110 H 95 07/31/19 05:01 37.7 C H 107 H 16 169/94 H 93 07/31/19 04:59 108 H 07/30/19 23:54 110 H 07/30/19 23:34 37.7 C H 109 H 22 165/100 H 93 Medications Administered Current Inpatient Medications Acetaminophen (Tylenol) 650 mg PO Q4H PRN PRN Reason: Pain or Fever Stop: 08/27/19 11:19 Doxycycline Hyclate (Vibramycin) 100 mg PO BID [facility]; Protocol Stop: 08/04/19 20:59 Last Admin: 07/31/19 07:54 Dose: 100 mg Documented by: Enoxaparin Sodium (Lovenox) 40 mg SQ Q24H [facility] Stop: 08/27/19 11:59 Last Admin: 07/30/19 12:36 Dose: 40 mg Documented by: Fentanyl (Duragesic) 50 mcg TD Q72H [facility]; Protocol Stop: 08/13/19 17:59 Last Admin: 07/30/19 18:56 Dose: 50 mcg Documented by: Gabapentin (Neurontin) 900 mg PO DAILY@2000 [facility] Stop: 08/28/19 19:59 Last Admin: 07/30/19 21:32 Dose: 900 mg Documented by: Gabapentin (Neurontin) 600 mg PO BID@0800,1200 [facility] Stop: 08/28/19 11:59 Last Admin: 07/31/19 07:54 Dose: 600 mg Documented by: Heparin Sodium (Porcine) (Heparin Sod 100 Unit/Ml Flush) 5 ml FLUSH PRN PRN PRN Reason: Flush Stop: 08/27/19 23:44 Last Admin: 07/30/19 23:57 Dose: 5 ml Documented by: Lorazepam (Ativan) 0.5 mg in 1 mls @ 0.5 mls/min IV Q8H PRN PRN Reason: Agitation Stop: 08/27/19 11:19 Last Admin: 07/28/19 22:51 Dose: 0.5 mls/min Documented by: Acetaminophen (Ofirmev) 1,000 mg in 100 mls @ 400 mls/hr IV Q8H PRN PRN Reason: Pain or Fever Stop: 07/31/19 15:41 Last Infusion: 07/31/19 08:57 Dose: Infused Documented by: Vancomycin HCl 1,750 mg/ (Sodium Chloride) 535 mls @ 200 mls/hr IV Q12H [facility] Stop: 08/12/19 15:59 Last Infusion: 07/31/19 05:56 Dose: Infused Documented by: Metoprolol Tartrate (Lopressor) 5 mg IV Q6 [facility] Stop: 08/27/19 11:59 Last Admin: 07/31/19 04:59 Dose: 5 mg Documented by: Miscellaneous (Fentanyl Patch Remove & Waste) 1 ea N/A Q3D [facility] Stop: 08/30/19 10:29 Last Admin: 07/30/19 18:56 Dose: 1 ea Documented by: Miscellaneous (Fentanyl Patch Check Placement) 1 ea N/A QS [facility] Stop: 08/27/19 15:59 Last Admin: 07/31/19 07:53 Dose: 1 ea Documented by: Miscellaneous (Order Awaiting Action) 1 ea N/A QS [facility] Stop: 08/27/19 15:59 Last Admin: 07/31/19 07:54 Dose: Not Given Documented by: Miscellaneous Information (Consult) 1 ea N/A UD PRN PRN Reason: Consult Stop: 08/28/19 04:47 Morphine Sulfate (Morphine Sulfate Ir) 15 mg PO Q6H PRN PRN Reason: Severe Pain Stop: 08/11/19 11:19 Last Admin: 07/31/19 04:59 Dose: 15 mg Documented by: Morphine Sulfate (Morphine Sulfate) 4 mg IV Q4H PRN PRN Reason: Pain Stop: 08/11/19 11:27 Last Admin: 07/31/19 07:52 Dose: 4 mg Documented by: Naloxone HCl (Narcan) 0.1 mg IV UD PRN PRN Reason: Opiate Overdose Stop: 08/27/19 11:19 Ondansetron HCl (Zofran) 4 mg IV Q6H PRN PRN Reason: Nausea Stop: 08/27/19 11:19 Oxycodone HCl (Roxicodone Immediate Rel) 10 mg PO Q4H PRN PRN Reason: Moderate Pain Stop: 08/11/19 11:19 Last Admin: 07/30/19 07:49 Dose: 10 mg Documented by: Polyethylene Glycol (Miralax Powder Packet) 17 gm PO DAILY PRN PRN Reason: Constipation Stop: 08/27/19 11:19 Psyllium Hydrophilic Mucilloid (Metamucil) 1 pkt PO DAILY PRN PRN Reason: diarrhea Stop: 08/28/19 11:15
[2019-07-31] MEDS ORDERED: MoRPHine SULFATE 4 MG/ML 1 ML CARP\\VIAL IV PRN (10:21)
[2019-07-31] MEDS: ENOXAPARIN INJ 40 MG/0.4 ML SYR SQ SCH (11:37)
[2019-07-31] MEDS ORDERED: DAPTOMYCIN CONSULT ACTIVE PRN (12:35)
[2019-07-31] MEDS: DAPTOmycin 550 MG in SYRINGE 0 ML IV SCH (16:46)
[2019-07-31] MEDS ORDERED: Nursing to Pharmacy Communication ONE (20:14)
[2019-07-31] MEDS: ACETAMINOPHEN 325 MG TAB PO PRN (21:30)
[2019-07-31] MEDS ORDERED: COUGH DROP (SUGAR FREE) LOZ 24 LOZ/1 BOX BUCCAL ONE (21:54)
[2019-08-01] MEDS: METOPROLOL TARTRATE 1 MG/ML VIAL IV SCH ×2 (00:11→05:21)
[2019-08-01] MEDS: CHECK FENTANYL PATCH PLACEMENT SCH ×3 (00:11→15:27)
[2019-08-01 05:17] LABS: Creatinine Clr Calc Pharmacy 149.8 ml/min; Est GFR (African American) 116.4; Est GFR (Non-African American) 100.4
[2019-08-01] MEDS: OXYCODONE HCL IR 5 MG TAB (IMMEDIATE RELEASE) PO PRN ×2 (06:37→20:38)
[2019-08-01] MEDS: GABAPENTIN 300 MG CAP PO SCH ×3 (08:52→20:40)
[2019-08-01] MEDS: MoRPHine SULFATE IR 15 MG TAB (IMMEDIATE RELEASE) PO PRN ×3 (09:05→22:06)
--- NOTE | 2019-08-01 09:59 | Hospitalist Progress Note ---
Date of Service August 01, 2019 Assessment & Plan (1) Sepsis: With coagulase negative Staphylococcus bacteremia likely secondary to UTI and doubt any pneumonia Blood culture is growing coagulase-negative staph and urine culture is growing enterococcus faecalis Has been on intravenous cefepime and vancomycin Clinically a little bit better today and will continue the current medications We will discontinue intravenous cefepime and continue with IV vancomycin Continue oral doxy to cover possible atypicals in lungs Clinically much better today Urine culture grew Enterococcus faecalis and blood culture grew coagulase- negative staph Both are sensitive to daptomycin Antibiotics were changed to daptomycin to continue for next 10 days High blood pressure His blood pressure remains elevated and this morning it was 171/114 Also on metoprolol succinate 25 mg twice daily as an outpatient Has been getting IV Lopressor 5 mg every 6 hours to control the blood pressure Likely contributed by increasing pain Blood pressure remains elevated Will increase metoprolol succinate to 50 mg twice daily DC intravenous Lopressor (2) Metabolic encephalopathy: Confusion and agitation x 2 days in setting of fever and UTI -In ER given Ativan with decreased agitation -Monitor closely -Ativan prn agitation, careful administration with his chronic narcotic pain medication -As above-confusion resolved -Back to his baseline-resolved (3) UTI (urinary tract infection): Pt is 64 y/o M with PMH 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 In ER T: 38.3C, P: 126, R: 24, BP: 158/105, 96% on RA dropped to 89% on RA after Ativan given up to 93% on RA. WBC: 18, Lacatate: 1.5, Procalcitonin: 4.4, negative influenza PCR, UA: 2+leuk esterase, >30 WBC, 2+bacteria CT HEAD WITHOUT CONTRAST: No acute intracranial findings CT CHEST WITHOUT CONTRAST: 1. Findings highly suspicious for metastatic disease with pulmonary, hepatic and osseous involvement. Known underlying malignancy presumed from the presence of the Mediport. Dedicated abdominal imaging could be considered for confirmation of hepatic involvement. 2. Bandlike and wedgelike opacities in the posterior right lung, most likely atelectasis. The appearance is not characteristic of infectious infiltrates. 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 Has not started chemo. Follows with Dr Blank Had discussion in past and wants to continue to pursue full treatment Today CT Chest: Findings highly suspicious for metastatic disease with pulmonary involvement Chronic pain Has been under care of palliative care He has been on fentanyl patch and oral narcotics Discussed with Dr. Perdomo We will get PT and OT evaluation before discharge Further adjustment of pain medications will be done as an outpatient (6) Paroxysmal atrial fibrillation: H/O PAF. Not on Coumadin Sinus tachycardia currently -Monitor on tele -heart rate remains elevated at around 100 -Oral metoprolol restarted (7) CKD (chronic kidney disease), stage III: Cr: 1.0. Baseline Cr: ~1.6 -Avoid nephrotoxic agents when possible -Monitor renal functions -Kidney function is better today -Renal function is normalized (8) Nonischemic cardiomyopathy: H/O ischemic cardiomyopathy EF: 35-40% in 06/2018 with EF>70% in 10/2018 No signs of fluid overload (9) Chronic anemia: H/H: 9.9/29. Baseline Hgb~12 No signs of bleeding -Hemoglobin is 8.8 as of 07/29/2019: Multifactorial without any evidence of overt bleeding and likely secondary to infection and cancer with metastasis (10) Rheumatoid arthritis: -Continue Plaquenil DVT Prophylaxis -Lovenox SQ Admit tele Full Code as per discussion with pt's . Pt was full code prior admission also Follows with Dr Jaquez for routine care Discussed with the Likely to be discharged this afternoon if IV antibiotic can be arranged as an outpatient Admission and Anticipated Discharge Date Admission Date: July 28, 2019 Subjective The patient was seen and examined in telemetry unit He is a 64-year-old male with metastatic GE junction adenocarcinoma, BRAF not on any anticoagulation, ischemic cardiomyopathy with EF of 35 to 40%, chronic lower extremity lymphedema and CKD presented to ER with fever and confusion with agitation for 2 days prior to admission He seems to be more alert and awake this morning He denies any significant pain but moans at times No fever and/or chills 07/30/2019 The patient was seen and examined in telemetry unit He has been feeling a lot better today and does not seems to be confused Denies any significant pain but has weakness No fever, chills or sweating 07/31/2019 The patient was seen and examined in telemetry unit He has been feeling lot better and denies any more confusion Remains generally weak and no pain at rest No fever and/or chills 08/01/2019 Patient was seen and examined in telemetry unit He has been feeling a lot better without any significant symptoms at rest No fever and/or chills and no shortness of breath Complains of pain with ambulation which has been chronic Review of Systems 2 Review of Systems: All systems reviewed and are unremarkable except as noted below Musculoskeletal: Complains pain at the back right hip with movement Physical Exam Physical Exam: Lying in bed without any distress Constitutional: well developed, well nourished and + obese; no acute distress (Minimal due to shortness of breath) and not ill appearing Eyes: PERRL, conjunctivae normal, anicteric sclerae ENMT: external ear and nose normal, oropharynx normal Neck: trachea midline, no thyromegaly Respiratory: normal respiratory effort; no respiratory distress (Minimal distress at rest) Auscultation: lungs clear to auscultation bilaterally Cardiovascular: Rate/Rhythm: regular rate, regular rhythm and + tachycardic Heart Sounds: no murmur Gastrointestinal (Abdomen): Inspection/Auscultation: abdomen normal to inspection and normal bowel sounds Percussion/Palpation: abdomen soft; abdomen nontender Musculoskeletal: Minimal right hip pain on movement otherwise no acute arthritis Neurologic: moves all extremities Speech / Cognition: normal speech Psychiatric: Orientation: alert and oriented x 3 Mood: + depressed mood Lymphatic: no cervical or axillary lymphadenopathy Results & Data Results & Data ([facility]) Vital Signs (Past 12 Hours) Vital Signs Temp Pulse Pulse Resp BP BP Pulse Ox 08/01/19 07:18 103 H 17 147/99 H 94 08/01/19 05:21 108 H 156/90 H 08/01/19 03:15 37.1 C 102 H 20 148/96 H 98 08/01/19 00:42 108 H 08/01/19 00:11 113 H 153/98 H 07/31/19 23:32 37.6 C H 107 H 16 153/98 H 95 Laboratory Results BMP 08/01/19 04:35 Creatinine 0.70 Cardiac Enzymes 07/31/19 Range/Units 12:43 Total Creatine Kinase 372 H (39-308) U/L Medications Administered Current Inpatient Medications Acetaminophen (Tylenol) 650 mg PO Q4H PRN PRN Reason: Pain or Fever Stop: 08/27/19 11:19 Last Admin: 07/31/19 21:30 Dose: 650 mg Documented by: Enoxaparin Sodium (Lovenox) 40 mg SQ Q24H [facility] Stop: 08/27/19 11:59 Last Admin: 07/31/19 11:37 Dose: 40 mg Documented by: Fentanyl (Duragesic) 50 mcg TD Q72H [facility]; Protocol Stop: 08/13/19 17:59 Last Admin: 07/30/19 18:56 Dose: 50 mcg Documented by: Gabapentin (Neurontin) 900 mg PO DAILY@2000 [facility] Stop: 08/28/19 19:59 Last Admin: 07/31/19 21:28 Dose: 900 mg Documented by: Gabapentin (Neurontin) 600 mg PO BID@0800,1200 [facility] Stop: 08/28/19 11:59 Last Admin: 08/01/19 08:52 Dose: 600 mg Documented by: Heparin Sodium (Porcine) (Heparin Sod 100 Unit/Ml Flush) 5 ml FLUSH PRN PRN PRN Reason: Flush Stop: 08/27/19 23:44 Last Admin: 07/30/19 23:57 Dose: 5 ml Documented by: Lorazepam (Ativan) 0.5 mg in 1 mls @ 0.5 mls/min IV Q8H PRN PRN Reason: Agitation Stop: 08/27/19 11:19 Last Admin: 07/28/19 22:51 Dose: 0.5 mls/min Documented by: Daptomycin 550 mg/ Syringe 11 mls @ 5.5 mls/min IV Q24H [facility]; Protocol Stop: 08/12/19 15:59 Last Admin: 07/31/19 16:46 Dose: 5.5 mls/min Documented by: Metoprolol Tartrate (Lopressor) 5 mg IV Q6 [facility] Stop: 08/27/19 11:59 Last Admin: 08/01/19 05:21 Dose: 5 mg Documented by: Miscellaneous (Fentanyl Patch Remove & Waste) 1 ea N/A Q3D [facility] Stop: 08/30/19 10:29 Last Admin: 07/30/19 18:56 Dose: 1 ea Documented by: Miscellaneous (Fentanyl Patch Check Placement) 1 ea N/A QS [facility] Stop: 08/27/19 15:59 Last Admin: 08/01/19 08:53 Dose: Not Given Documented by: Miscellaneous (Order Awaiting Action) 1 ea N/A QS [facility] Stop: 08/27/19 15:59 Last Admin: 08/01/19 08:52 Dose: Not Given Documented by: Miscellaneous Information (Consult) 1 ea N/A UD PRN PRN Reason: Consult Stop: 08/30/19 12:34 Morphine Sulfate (Morphine Sulfate Ir) 15 mg PO Q6H PRN PRN Reason: Severe Pain Stop: 08/11/19 11:19 Last Admin: 08/01/19 09:05 Dose: 15 mg Documented by: Morphine Sulfate (Morphine Sulfate) 4 mg IV Q4H PRN PRN Reason: Pain Stop: 08/11/19 10:20 Naloxone HCl (Narcan) 0.1 mg IV UD PRN PRN Reason: Opiate Overdose Stop: 08/27/19 11:19 Ondansetron HCl (Zofran) 4 mg IV Q6H PRN PRN Reason: Nausea Stop: 08/27/19 11:19 Oxycodone HCl (Roxicodone Immediate Rel) 10 mg PO Q4H PRN PRN Reason: Moderate Pain Stop: 08/11/19 11:19 Last Admin: 08/01/19 06:37 Dose: 10 mg Documented by: Polyethylene Glycol (Miralax Powder Packet) 17 gm PO DAILY PRN PRN Reason: Constipation Stop: 08/27/19 11:19 Psyllium Hydrophilic Mucilloid (Metamucil) 1 pkt PO DAILY PRN PRN Reason: diarrhea Stop: 08/28/19 11:15
[2019-08-01] MEDS: ENOXAPARIN INJ 40 MG/0.4 ML SYR SQ SCH (11:43)
[2019-08-01] MEDS: METOPROLOL SUCC 50MG EXT REL TAB PO SCH ×2 (11:44→20:40)
[2019-08-01] MEDS: DAPTOmycin 550 MG in SYRINGE 0 ML IV SCH (15:27)
[2019-08-01] MEDS: ACETAMINOPHEN 325 MG TAB PO PRN (20:39)
[2019-08-01] MEDS: HEPARIN 100 UNIT/ML 5ML FLUSH FLUSH PRN (20:40)
[2019-08-02] MEDS: CHECK FENTANYL PATCH PLACEMENT SCH ×3 (01:09→15:36)
[2019-08-02] MEDS: ACETAMINOPHEN 325 MG TAB PO PRN (07:29)
[2019-08-02] MEDS: MoRPHine SULFATE IR 15 MG TAB (IMMEDIATE RELEASE) PO PRN ×3 (07:29→19:46)
[2019-08-02] MEDS: fentaNYL 50 MCG/HR TDSY TD SCH (07:33)
[2019-08-02] MEDS: GABAPENTIN 300 MG CAP PO SCH ×3 (07:35→19:46)
[2019-08-02] MEDS: METOPROLOL SUCC 50MG EXT REL TAB PO SCH ×2 (07:36→21:05)
[2019-08-02] MEDS: AMLODIPINE BESYLATE 5 MG TAB PO SCH (08:08)
[2019-08-02 08:19] LABS: Basophils # (auto) 0.05 K/uL (0-0.2); Basophils % (auto) 0.3 %; Eosinophils # (auto) 0.51 K/uL (0-0.5); Hematocrit (blood only) 29.9 % (42-52); Hemoglobin 9.4 g/dL (14.0-18.0); Immature Granulocytes # (auto) 0.34 K/uL (0.00-0.02); Lymphocytes % (auto) 4.2 %; Mean Corpuscular Hemoglobin 26.3 pg (25-34); Mean Corpuscular Hgb Conc 31.4 g/dL (32-36); Mean Corpuscular Volume 83.5 fL (80-100); Mean Platelet Volume 8.7 fL (7.4-10.4); Monocytes # (auto) 1.55 K/uL (0.11-0.59); Monocytes % (auto) 9.2 %; Neutrophils # (auto) 13.68 K/uL (1.4-6.5); Neutrophils % (auto) 81.3 %; Nucleated RBC # (auto) 0.07 K/uL (0-0); Nucleated RBC % (auto) 0.4 %; Platelet Count 670 K/uL (130-400); RDW Coefficient of Variation 15.5 % (11.5-14.5); RDW Standard Deviation 47.5 fL (36.4-46.3); Red Blood Count 3.58 M/uL (4.7-6.1); White Blood Count 16.83 K/uL (4.8-10.8)
[2019-08-02 08:45] LABS: Calcium 8.8 mg/dl (8.5-10.1); Creatinine Clr Calc Pharmacy 160.2 ml/min; Est GFR (Non-African American) 103.5; Magnesium 1.9 mg/dl (1.8-2.4); Potassium 3.6 mmol/L (3.5-5.1)
[2019-08-02 08:48] LABS: Phosphorus 2.8 mg/dl (2.5-4.9)
--- NOTE | 2019-08-02 09:39 | Hospitalist Progress Note ---
Date of Service August 02, 2019 Assessment & Plan (1) Sepsis: With coagulase negative Staphylococcus bacteremia likely secondary to UTI and doubt any pneumonia Blood culture is growing coagulase-negative staph and urine culture is growing enterococcus faecalis Has been on intravenous cefepime and vancomycin Clinically a little bit better today and will continue the current medications We will discontinue intravenous cefepime and continue with IV vancomycin Continue oral doxy to cover possible atypicals in lungs Clinically much better today Urine culture grew Enterococcus faecalis and blood culture grew coagulase- negative staph Both are sensitive to daptomycin Antibiotics were changed to daptomycin to continue for next 10 days Remains stable with decreasing white count and without any fever Likely be discharged this afternoon with intravenous daptomycin for next 9 days High blood pressure His blood pressure remains elevated and this morning it was 171/114 Also on metoprolol succinate 25 mg twice daily as an outpatient Has been getting IV Lopressor 5 mg every 6 hours to control the blood pressure Likely contributed by increasing pain Blood pressure remains elevated Will increase metoprolol succinate to 50 mg twice daily DC intravenous Lopressor We will add oral Norvasc's to control blood pressure (2) Metabolic encephalopathy: Confusion and agitation x 2 days in setting of fever and UTI -In ER given Ativan with decreased agitation -Monitor closely -Ativan prn agitation, careful administration with his chronic narcotic pain medication -As above-confusion resolved -Back to his baseline-resolved (3) UTI (urinary tract infection): Pt is 64 y/o M with PMH 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 In ER T: 38.3C, P: 126, R: 24, BP: 158/105, 96% on RA dropped to 89% on RA after Ativan given up to 93% on RA. WBC: 18, Lacatate: 1.5, Procalcitonin: 4.4, negative influenza PCR, UA: 2+leuk esterase, >30 WBC, 2+bacteria CT HEAD WITHOUT CONTRAST: No acute intracranial findings CT CHEST WITHOUT CONTRAST: 1. Findings highly suspicious for metastatic disease with pulmonary, hepatic and osseous involvement. Known underlying malignancy presumed from the presence of the Mediport. Dedicated abdominal imaging could be considered for confirmation of hepatic involvement. 2. Bandlike and wedgelike opacities in the posterior right lung, most likely atelectasis. The appearance is not characteristic of infectious infiltrates. 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 Has not started chemo. Follows with Dr Blank Had discussion in past and wants to continue to pursue full treatment Today CT Chest: Findings highly suspicious for metastatic disease with pulmonary involvement Chronic pain Has been under care of palliative care He has been on fentanyl patch and oral narcotics Discussed with Dr. Perdomo We will get PT and OT evaluation before discharge Further adjustment of pain medications will be done as an outpatient Palliative care consulted as per request from the (6) Paroxysmal atrial fibrillation: H/O PAF. Not on Coumadin Sinus tachycardia currently -Monitor on tele -heart rate remains elevated at around 100 -Oral metoprolol restarted (7) CKD (chronic kidney disease), stage III: Cr: 1.0. Baseline Cr: ~1.6 -Avoid nephrotoxic agents when possible -Monitor renal functions -Kidney function is better today -Renal function is normalized (8) Nonischemic cardiomyopathy: H/O ischemic cardiomyopathy EF: 35-40% in 06/2018 with EF>70% in 10/2018 No signs of fluid overload (9) Chronic anemia: H/H: 9.9/29. Baseline Hgb~12 No signs of bleeding -Hemoglobin is 8.8 as of 07/29/2019: Multifactorial without any evidence of overt bleeding and likely secondary to infection and cancer with metastasis -Hemoglobin remains stable at 9.4 as of 08/02/2019 (10) Rheumatoid arthritis: -Continue Plaquenil DVT Prophylaxis -Lovenox SQ Admit tele Full Code as per discussion with pt's . Pt was full code prior admission also Follows with Dr Jaquez for routine care Discussed with the Likely to be discharged this afternoon if IV antibiotic can be arranged as an outpatient Likely be discharged this afternoon Admission and Anticipated Discharge Date Admission Date: July 28, 2019 Subjective The patient was seen and examined in telemetry unit He is a 64-year-old male with metastatic GE junction adenocarcinoma, BRAF not on any anticoagulation, ischemic cardiomyopathy with EF of 35 to 40%, chronic lower extremity lymphedema and CKD presented to ER with fever and confusion with agitation for 2 days prior to admission He seems to be more alert and awake this morning He denies any significant pain but moans at times No fever and/or chills 07/30/2019 The patient was seen and examined in telemetry unit He has been feeling a lot better today and does not seems to be confused Denies any significant pain but has weakness No fever, chills or sweating 07/31/2019 The patient was seen and examined in telemetry unit He has been feeling lot better and denies any more confusion Remains generally weak and no pain at rest No fever and/or chills 08/01/2019 Patient was seen and examined in telemetry unit He has been feeling a lot better without any significant symptoms at rest No fever and/or chills and no shortness of breath Complains of pain with ambulation which has been chronic 08/02/2019 Patient was seen and examined in telemetry unit He complains some pain in the morning but relieved now with pain medications Denies any other significant symptoms Review of Systems Review of Systems: All systems reviewed and are unremarkable except as noted below Musculoskeletal: Complains pain at the back right hip with movement Physical Exam Physical Exam: Lying in bed without any distress Constitutional: well developed, well nourished and + obese; no acute distress (Minimal due to shortness of breath) and not ill appearing Eyes: PERRL, conjunctivae normal, anicteric sclerae ENMT: external ear and nose normal, oropharynx normal Neck: trachea midline, no thyromegaly Respiratory: normal respiratory effort; no respiratory distress (Minimal distress at rest) Auscultation: lungs clear to auscultation bilaterally Cardiovascular: Rate/Rhythm: regular rate, regular rhythm and + tachycardic Heart Sounds: no murmur Extremities: no edema Gastrointestinal (Abdomen): Inspection/Auscultation: abdomen normal to inspection and normal bowel sounds Percussion/Palpation: abdomen soft; abdomen nontender Musculoskeletal: No acute arthritis in any joints Neurologic: moves all extremities; no focal motor deficits Speech / Cognition: normal speech Psychiatric: Orientation: alert and oriented x 3 Mood: + depressed mood Lymphatic: no cervical or axillary lymphadenopathy Results & Data Results & Data ([facility]) Vital Signs (Past 12 Hours) Vital Signs Temp Pulse Pulse Resp BP Pulse Ox 08/02/19 08:00 93 H 160/90 H 08/02/19 07:18 37.0 C 96 H 10 L 161/106 H 97 08/02/19 03:32 37.2 C 87 18 144/99 H 96 08/01/19 23:27 37.3 C 89 18 151/94 H 96 Laboratory Results Short CBC 08/02/19 Range/Units 07:59 WBC 16.83 H (4.8-10.8) K/uL Hgb 9.4 L (14.0-18.0) g/dL Hct 29.9 L (42-52) % Plt Count 670 H (130-400) K/uL BMP 08/02/19 07:59 Sodium 135 L Potassium 3.6 Chloride 99 Carbon Dioxide 28 BUN 9 Creatinine 0.65 Glucose 89 Calcium 8.8 Cardiac Enzymes 08/02/19 Range/Units 07:59 Total Creatine Kinase 234 (39-308) U/L Medications Administered Current Inpatient Medications Acetaminophen (Tylenol) 650 mg PO Q4H PRN PRN Reason: Pain or Fever Stop: 08/27/19 11:19 Last Admin: 08/02/19 07:29 Dose: 650 mg Documented by: Amlodipine Besylate (Norvasc) 5 mg PO QAM [facility] Stop: 09/01/19 08:59 Last Admin: 08/02/19 08:08 Dose: 5 mg Documented by: Enoxaparin Sodium (Lovenox) 40 mg SQ Q24H [facility] Stop: 08/27/19 11:59 Last Admin: 08/01/19 11:43 Dose: 40 mg Documented by: Fentanyl (Duragesic) 50 mcg TD Q72H [facility]; Protocol Stop: 08/13/19 17:59 Last Admin: 08/02/19 07:33 Dose: 50 mcg Documented by: Gabapentin (Neurontin) 900 mg PO DAILY@1999 [facility] Stop: 08/28/19 19:59 Last Admin: 08/01/19 20:40 Dose: 900 mg Documented by: Gabapentin (Neurontin) 600 mg PO BID@0800,1200 [facility] Stop: 08/28/19 11:59 Last Admin: 08/02/19 07:35 Dose: 600 mg Documented by: Heparin Sodium (Porcine) (Heparin Sod 100 Unit/Ml Flush) 5 ml FLUSH PRN PRN PRN Reason: Flush Stop: 08/27/19 23:44 Last Admin: 08/01/19 20:40 Dose: 5 ml Documented by: Lorazepam (Ativan) 0.5 mg in 1 mls @ 0.5 mls/min IV Q8H PRN PRN Reason: Agitation Stop: 08/27/19 11:19 Last Admin: 07/28/19 22:51 Dose: 0.5 mls/min Documented by: Daptomycin 550 mg/ Syringe 11 mls @ 5.5 mls/min IV Q24H [facility]; Protocol Stop: 08/12/19 15:59 Last Admin: 08/01/19 15:27 Dose: 5.5 mls/min Documented by: Metoprolol Succinate (Toprol Xl) 50 mg PO BID [facility] Stop: 08/31/19 09:59 Last Admin: 08/02/19 07:36 Dose: 50 mg Documented by: Miscellaneous (Fentanyl Patch Remove & Waste) 1 ea N/A Q3D [facility] Stop: 08/30/19 10:29 Last Admin: 07/30/19 18:56 Dose: 1 ea Documented by: Miscellaneous (Fentanyl Patch Check Placement) 1 ea N/A QS [facility] Stop: 08/27/19 15:59 Last Admin: 08/02/19 07:34 Dose: 1 ea Documented by: Miscellaneous (Order Awaiting Action) 1 ea N/A QS [facility] Stop: 08/27/19 15:59 Last Admin: 08/02/19 08:06 Dose: Not Given Documented by: Miscellaneous Information (Consult) 1 ea N/A UD PRN PRN Reason: Consult Stop: 08/30/19 12:34 Morphine Sulfate (Morphine Sulfate Ir) 15 mg PO Q6H PRN PRN Reason: Severe Pain Stop: 08/11/19 11:19 Last Admin: 08/02/19 07:29 Dose: 15 mg Documented by: Morphine Sulfate (Morphine Sulfate) 4 mg IV Q4H PRN PRN Reason: Pain Stop: 08/11/19 10:20 Naloxone HCl (Narcan) 0.1 mg IV UD PRN PRN Reason: Opiate Overdose Stop: 08/27/19 11:19 Ondansetron HCl (Zofran) 4 mg IV Q6H PRN PRN Reason: Nausea Stop: 08/27/19 11:19 Oxycodone HCl (Roxicodone Immediate Rel) 10 mg PO Q4H PRN PRN Reason: Moderate Pain Stop: 08/11/19 11:19 Last Admin: 08/01/19 20:38 Dose: 10 mg Documented by: Polyethylene Glycol (Miralax Powder Packet) 17 gm PO DAILY PRN PRN Reason: Constipation Stop: 08/27/19 11:19 Psyllium Hydrophilic Mucilloid (Metamucil) 1 pkt PO DAILY PRN PRN Reason: diarrhea Stop: 08/28/19 11:15
--- NOTE | 2019-08-02 11:07 | Palliative Care Consultation ---
Date of Consultation August 02, 2019 Assessment & Plan (1) Goals of care, counseling/discussion: -64 year old male with a PMH current stage IV esophageal cancer s/p XRT completed 07/01/2019, hypertension, RA-on Plaquenil, chronic lower extremity lymphedema, cardiomyopathy with EF 30% diagnosed via cardiac catherization June 2018, who presented to the ED with back pain and was found to have septicemia. Blood cultures growing coag negative staph, urine growing enterococcus faecalis. William is now on IV datomycin for next nine days. His metabolic encephalopathy is resolved and he is clinically doing much better. Patient originally presented this past March of 2019, with back pain with radiation to both hips. Patient underwent MRI which showed multiple compression fractures and bone lesions of the lumbar spine. A CT scan showed liver lesions consistent with metastatic disease. Patient underwent outpatient EGD on 05/31 and was found to have a fungating mass at the GE junction. Patient diagnosed with stage IV esophageal cancer. Patient was in his oncologist office on 06/14 with intractable pain and was sent to the emergency room. Patient's pain was controlled with [employer] pump and he was eventually discharged on a fentanyl patch and Oxycodone 10mg for breakthrough pain. He was discharged home where he continued to have issues with severe pain-- to the point of essentially being bedridden. Even sitting in an upright position was putting too much pressure on his lower spine lesions. Patient did undergo palliative XRT to the spinal lesions, but only received 9 out of 10 planned fractions due to issues with pain and missed appointments. XRT completed on 07/01/2019. Patient was also to follow up with palliative care as outpatient, but again he missed several appointments due to his severe pain and inability to get out of the house. Of note, prior to becoming ill, patient was a fully independent 64 year old man. Palliative care is now consulted while he is inpatient to help with pain management. -Spoke with patient's , Alma Rosa, at length over phone. She states that katherine nicole was discharged in May with Oxycodone 10mg Q4h PRN breakthrough pain. He was alternating the oxycodone with 1000mg Tylenol Q6h (total of 4000mg per day, which she was concerned about due to his known liver mets). Again, due to the pain, patient was completely confined to the bed. For appointments, it took maximum assistance to get patient into a wheelchair. Once he got to the car, he laid down flat in the back seat. Eventually, he missed several appointments because it was just too difficult and painful to get out of the house. Alma Rosa states that when patient is lying flat, he actually feels pretty well in the way of pain. The pain is in his lower back and still to the right hip. Patient had a fall one day prior to his XRT appointment, so they were concerned in there was damage to the right hip. X-ray during this admissions shows no acute injury-- she and patient are aware. At home, patient felt that when he took the oxycodone it made him more "foggiheaded" than he liked, and it was causing him anxiety. He called his PCP Dr. Burgos who prescribed Morphine 15mg IR Q6h PRN, and the plan was to discontinue the oxycodone. Patient only had one dose of the morphine prior to coming to the hospital last week. -During hospitalization, patient is using both the PRN morphine IR and PRN oxycodone. In last 24 hours, patient has used 3 doses of morphine IR 15 and three doses of oxycodone 10mg. He has not used any of the Morphine 4mg IV. -Recommend discontinuing the IV morphine. -Goal is to discontinue Oxycodone and continue with fentanyl patch and Morphine 15mg IR Q6h PRN breakthrough pain. I instructed patient's that patient should NOT have more than 2g Tylenol in 24 hours, she will be sure to cut the dose down. -Difficult to manage/adjust patient's long-acting medication while he is not getting out of bed, as his pain is much more controlled while he is lying flat. Need to see how patient does with PT/OT and attempting to get OOB. -I have spoken with case management. Plan is for patient to return home with home health and IV daptomycin for next nine days. is in agreement with this plan. -Patient's did state that they are well aware of patient's poor prognosis with this advanced cancer. However, they have made the decision to face this head on and pursue full treatment/full court press. The goal is to get patient to his appointment with Dr. Blank for heme/onc to pursue chemotherapy. Alma Rosa states that they are under the impression that the plan is to treat with Herceptin and possibly Taxol. -Patient to be seen by Dr. Perdomo this afternoon. We will have further recommendations after he is seen and examined. -Update: Patient is to be started on Methadone 5mg BID, first dose now, next dose at 2100. Then another dose at 0900 tomorrow morning. Discharge planned for tomorrow. -Dr. Perdomo instructed patient to take Morphine 15mg half hour prior to any activity at home. -Discontinue Oxycodone. Continue fentanyl patch at 50mcg/hr. -Dr. Perdomo will call patient's with these instructions. (2) Cancer related pain: (3) Metastatic adenocarcinoma to bone: (4) Sepsis: Sepsis acute organ dysfunction status: unspecified Sepsis type: sepsis due to unspecified organism Qualified Code(s): A41.9 - Sepsis, un specified organism Supervising Physician Co-Signing Physician Notes Chart reviewed, patient seen and examined. Patient known to our service from prior admissions. Both patient and interested in starting methadone for pain in order to reduce cognitive effects of the fentanyl and morphine. Patient was started on gabapentin and dose was titrated in order to minimize opioid use-patient reports initially this seemed to have helped, now he is not too sure. Reviewed plan of care with patient at length-we will start methadone at 5 mg twice daily-will receive first dose now and second dose this evening. EKG performed prior to her first dose showed a QTC of 433. Educated patient regarding potentiation of methadone in regards to the morphine that he takes for breakthrough pain, discussed methadone will not reach its full potential for 5 to 7 days-he will need to continue PRN morphine. Discussed with patient taking his PRN morphine 30 minutes prior to trying to get up and out of bed-patient to assess pain control with morphine as well as duration of relief. Patient states he was seen by therapy this morning-reported his pain as 3 out of 10 at rest, increased to 6 out of 10 with sitting on the side of the bed. Patient had received a PRN morphine over 3 hours prior to therapy. Need to assess patient's response if morphine is given 30 minutes prior to any movement. Decadron is often used for bone pain-we will hold off at this time as to not cause any new issues regarding medications. Spoke with , [phone], at length regarding plan of care. Patient is plan for discharge tomorrow-we will obtain an EKG after his third dose of methadone. Patient has an appointment in the afternoon with oncology-would rec ommend a dose of morphine prior to discharge, will also bring his home morphine along to appointment. Discussed that patient can take his morphine IR at 15 mg every 2 hours as needed. Will continue close phone follow-up as outpatient. Methadone in outpatient setting cannot be adjusted any more frequently than every 2 weeks-he may require an EKG prior to next dose adjustment. PE: Patient awake and alert, no acute distress HEENT: EOMI, hearing within normal limits Respirations: Clear breath sounds bilaterally CV: Regular rate, no edema Abdomen: Soft, nontender Neuro: Alert and oriented x4 Agree with above note, assessment and plan as per LON Spangler. Spoke with patient's at length, collaborated with attending physician Dr. Mederos. History of Present Illness Attending Physician: Yimi Mederos MD History of Present Illness This 64 year old male with a [facility] current stage IV esophageal cancer s/p XRT completed 07/01/2019, hypertension, RA-on Plaquenil, chronic lower extremity lymphedema, cardiomyopathy with EF 30% diagnosed via cardiac catheterization June 2018, who presented to the ED with back pain and was found to have septicemia. Blood cultures growing coag negative staph, urine growing enterococcus faecalis. Patient is now on IV daptomycin for next nine days. His metabolic encephalopathy is resolved and he is clinically doing much better. Patient originally presented this past March of 2019, with back pain with radiation to both hips. Patient underwent MRI which showed multiple compression fractures and bone lesions of the lumbar spine. A CT scan showed liver lesions consistent with metastatic disease. Patient underwent outpatient EGD on 05/31 and was found to have a fungating mass at the GE junction. Patient diagnosed with stage IV esophageal cancer. Patient was in his oncologist office on 06/14 with intractable pain and was sent to the emergency room. Patient's pain was controlled with [employer] pump and he was eventually discharged on a fentanyl patch and Oxycodone 10mg for breakthrough pain. He was discharged home where he continued to have issues with severe pain-- to the point of essentially being bedridden. Even sitting in an upright position was putting too much pressure on his lower spine lesions. Patient did undergo palliative XRT to the spinal lesions, but only received 9 out of 10 planned fractions due to issues with pain and missed appointments. XRT completed on 07/01/2019. Patient was also to follow up with palliative care as outpatient, but again he missed several appointments due to his severe pain and inability to get out of the house. Of note, prior to becoming ill, patient was a fully independent 64 year old man. Palliative care is now consulted while he is inpatient to help with pain management. Allergies Allergy/AdvReac Type Severity Reaction Status Date / Time No Known Allergies Allergy Verified 07/28/19 07:50 Home Medications Home Medications Medication Instructions Recorded Confirmed Type gabapentin 600 mg PO UD 06/14/19 07/28/19 History hydroxychloroquine 400 mg PO DAILY@199906/14/19 07/28/19 History metoprolol succinate 25 mg PO BID 06/14/19 07/28/19 History polyethylene glycol 3350 [Miralax] 17 g PO DAILY PRN #30 ea 06/18/19 07/28/19 Rx fentanyl 50 mcg/hr transdermal 1 patch TD Q72H 06/28/19 07/28/19 History patch naloxone 4 mg INTRANASAL DIRECTED PRN 06/28/19 07/28/19 History Metamucil 1 tbsp PO DAILY PRN 06/30/19 07/28/19 History loperamide [Imodium A-D] 2 mg PO Q3H PRN 06/30/19 07/28/19 History acetaminophen [Tylenol Extra 1,000 mg PO Q6H 07/28/19 07/28/19 History Strength] gabapentin 900 mg PO DAILY@199907/28/19 07/28/19 History morphine 15 mg PO Q6H PRN 07/28/19 07/28/19 History oxycodone 10 mg PO Q4H PRN 07/28/19 07/28/19 History Patient History Medical History (Updated 08/02/19 @ 11:00 by LON Parks) Acute hypoxemic respiratory failure 06/2018 Afib Recent confinement June 2018 for new diagnosis of heart failure. Paroxysmal A. fib noted during confinement. Patient discharged on Eliquis for anticoagulation.> PT REPORTS NO LONGER ON ELIQUIS> THIS WAS ISOLATED INCIDENT Eliquis discontinued a few months later by project intern after outpatient telemetry did not show recurrent AF. Anxiety Atypical chest pain Cancer associated pain (Inactive) Cardiomyopathy Severe LV dysfunction with EF of 30% found on admission June 2018. TTE 11/02/2018 showed resolution of cardiomyopathy with EF greater than 70%. Chronic anemia CKD (chronic kidney disease), stage III Constipation Elevated troponin 06/2018. Cardiac catheterization performed during admission showed severe LV dysfunction with EF of 30% but large-caliber coronaries with minimal irregularities at most. Elevation felt secondary to demand ischemia from cardiomyopathy/fluid overload. GE junction carcinoma GERD (gastroesophageal reflux disease) HX Hypertension Malignant neoplasm of gastroesophageal junction REASON FOR PROCEDURE > RADIATION AT PRESENT Metastatic cancer to spine (Inactive) Nonischemic cardiomyopathy Paroxysmal atrial fibrillation Pathologic compression fracture of lumbar vertebra L5 with retropulsion > W/C AT PRESENT Pneumonia 06/2018 Rheumatoid arthritis Surgical History History of cardiac cath JUNE 2018 > FOR C.P/SOB > [facility] > NO STENTS History of tooth extraction Hx of colonoscopy Family History Grandfather (Maternal) Diabetes Social History Preferred Language: Pashto Communication Ability: Unable Billing Manager Required: No Beliefs That Will Affect Care: None marital status: Current Living Situation: Spouse Other Information That Helps Us Care for You: No Feels Safe at Home: Yes Safety Concerns: Feels Safe At This Time Smoking Status: Never smoker Do You Dip or Chew Tobacco: No ; Second Hand Exposure: No ; Tobacco Cessation Education Requested by Patient: No Hx Alcohol Use: No Hx Substance Use: No Results & Data Vital Signs (Past 12 Hours) Vital Signs Temp Pulse Pulse Resp BP Pulse Ox 08/02/19 08:00 93 H 160/90 H 08/02/19 07:18 37.0 C 96 H 10 L 161/106 H 97 08/02/19 03:32 37.2 C 87 18 144/99 H 96 08/01/19 23:27 37.3 C 89 18 151/94 H 96 PG Care Time/CCT Prolonged Care Time Prolonged Care Time: Yes Total Prolonged Care Time: 75 Coding Level of Care Code 60112 Inpt Consult Level 3 Diagnoses Goals of care, counseling/discussion Z71.89 Cancer related pain G89.3 Metastatic adenocarcinoma to bone C79.51 Sepsis A41.9 Sepsis acute organ dysfunction status: unspecified Sepsis type: sepsis due to unspecified organism Additional Codes Prolonged Care Time - Prolonged Care Time: Yes ([id number]) Time Spent (min) 145 Time Spent Midlevel Total time spent by this PERSONNEL OFFICER is 80 minutes reviewing chart, speaking with attending physician, classification case manager, collaborating with palliative MD, and speaking with patient's on phone at length. Attending Spent 65 minutes in addition to the 80 minutes spent by LON Spangler for total of 145 minutes-greater than 50% of the time spent at bedside and discussing plan of care with both patient and . Critical Care Time Prolonged Care Time Prolonged Care Time: Yes Total Prolonged Care Time: 75 145
[2019-08-02] MEDS: OXYCODONE HCL IR 5 MG TAB (IMMEDIATE RELEASE) PO PRN (11:39)
[2019-08-02] MEDS: ENOXAPARIN INJ 40 MG/0.4 ML SYR SQ SCH (12:19)
[2019-08-02] MEDS: METHADONE HCL 5 MG TAB PO SCH ×2 (13:23→21:05)
[2019-08-02] MEDS: DAPTOmycin 550 MG in SYRINGE 0 ML IV SCH (15:36)
[2019-08-03] MEDS: CHECK FENTANYL PATCH PLACEMENT SCH ×3 (00:16→14:56)
[2019-08-03] MEDS: MoRPHine SULFATE IR 15 MG TAB (IMMEDIATE RELEASE) PO PRN ×3 (04:00→14:56)
[2019-08-03] MEDS: METHADONE HCL 5 MG TAB PO SCH (07:22)
[2019-08-03] MEDS: METOPROLOL SUCC 50MG EXT REL TAB PO SCH (07:23)
[2019-08-03] MEDS: AMLODIPINE BESYLATE 5 MG TAB PO SCH (07:24)
[2019-08-03] MEDS: GABAPENTIN 300 MG CAP PO SCH ×2 (07:24→11:48)
--- NOTE | 2019-08-03 09:40 | Hospitalist Progress Note ---
Date of Service August 03, 2019 Assessment & Plan (1) Sepsis: With coagulase negative Staphylococcus bacteremia likely secondary to UTI and doubt any pneumonia Blood culture is growing coagulase-negative staph and urine culture is growing enterococcus faecalis Has been on intravenous cefepime and vancomycin Clinically a little bit better today and will continue the current medications We will discontinue intravenous cefepime and continue with IV vancomycin Continue oral doxy to cover possible atypicals in lungs Clinically much better today Urine culture grew Enterococcus faecalis and blood culture grew coagulase- negative staph Both are sensitive to daptomycin Antibiotics were changed to daptomycin to continue for next 10 days Remains stable with decreasing white count and without any fever Will be discharged home this morning High blood pressure His blood pressure remains elevated and this morning it was 171/114 Also on metoprolol succinate 25 mg twice daily as an outpatient Has been getting IV Lopressor 5 mg every 6 hours to control the blood pressure Likely contributed by increasing pain Blood pressure remains elevated Will increase metoprolol succinate to 50 mg twice daily DC intravenous Lopressor We will add oral Norvasc's to control blood pressure Blood pressure seems to be well controlled (2) Metabolic encephalopathy: Confusion and agitation x 2 days in setting of fever and UTI -In ER given Ativan with decreased agitation -Monitor closely -Ativan prn agitation, careful administration with his chronic narcotic pain medication -As above-confusion resolved -Back to his baseline-resolved (3) UTI (urinary tract infection): Pt is 64 y/o M with PMH 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 In ER T: 38.3C, P: 126, R: 24, BP: 158/105, 96% on RA dropped to 89% on RA after Ativan given up to 93% on RA. WBC: 18, Lacatate: 1.5, Procalcitonin: 4.4, negative influenza PCR, UA: 2+leuk esterase, >30 WBC, 2+bacteria CT HEAD WITHOUT CONTRAST: No acute intracranial findings CT CHEST WITHOUT CONTRAST: 1. Findings highly suspicious for metastatic disease with pulmonary, hepatic and osseous involvement. Known underlying malignancy presumed from the presence of the Mediport. Dedicated abdominal imaging could be considered for confirmation of hepatic involvement. 2. Bandlike and wedgelike opacities in the posterior right lung, most likely atelectasis. The appearance is not characteristic of infectious infiltrates. 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 Has not started chemo. Follows with Dr Blank Had discussion in past and wants to continue to pursue full treatment Today CT Chest: Findings highly suspicious for metastatic disease with pulmonary involvement He is going to keep the appointment with oncologist at [facility] today Chronic pain Has been under care of palliative care He has been on fentanyl patch and oral narcotics Discussed with Dr. Perdomo We will get PT and OT evaluation before discharge Further adjustment of pain medications will be done as an outpatient Palliative care consulted as per request from the Appreciate palliative care input and recommendation Started on oral methadone for pain control Will have usual evaluation as an outpatient with palliative care (6) Paroxysmal atrial fibrillation: H/O PAF. Not on Coumadin Sinus tachycardia currently -Monitor on tele -heart rate remains elevated at around 100 -Oral metoprolol restarted (7) CKD (chronic kidney disease), stage III: Cr: 1.0. Baseline Cr: ~1.6 -Avoid nephrotoxic agents when possible -Monitor renal functions -Kidney function is better today -Renal function is normalized (8) Nonischemic cardiomyopathy: H/O ischemic cardiomyopathy EF: 35-40% in 06/2018 with EF>70% in 10/2018 No signs of fluid overload (9) Chronic anemia: H/H: 9.9/29. Baseline Hgb~12 No signs of bleeding -Hemoglobin is 8.8 as of 07/29/2019: Multifactorial without any evidence of overt bleeding and likely secondary to infection and cancer with metastasis -Hemoglobin remains stable at 9.4 as of 08/02/2019 (10) Rheumatoid arthritis: -Continue Plaquenil DVT Prophylaxis -Lovenox SQ Admit tele Full Code as per discussion with pt's . Pt was full code prior admission also Follows with Dr Jaquez for routine care Discussed with the Likely to be discharged this afternoon if IV antibiotic can be arranged as an outpatient Likely be discharged this morning Admission and Anticipated Discharge Date Admission Date: July 28, 2019 Subjective The patient was seen and examined in telemetry unit He is a 64-year-old male with metastatic GE junction adenocarcinoma, BRAF not on any anticoagulation, ischemic cardiomyopathy with EF of 35 to 40%, chronic lower extremity lymphedema and CKD presented to ER with fever and confusion with agitation for 2 days prior to admission He seems to be more alert and awake this morning He denies any significant pain but moans at times No fever and/or chills 07/30/2019 The patient was seen and examined in telemetry unit He has been feeling a lot better today and does not seems to be confused Denies any significant pain but has weakness No fever, chills or sweating 07/31/2019 The patient was seen and examined in telemetry unit He has been feeling lot better and denies any more confusion Remains generally weak and no pain at rest No fever and/or chills 08/01/2019 Patient was seen and examined in telemetry unit He has been feeling a lot better without any significant symptoms at rest No fever and/or chills and no shortness of breath Complains of pain with ambulation which has been chronic 08/02/2019 Patient was seen and examined in telemetry unit He complains some pain in the morning but relieved now with pain medications Denies any other significant symptoms 08/03/2019 The patient was seen and examined in telemetry unit He has been feeling better and the pain is controlled with methadone Denies any cardiac symptoms and the EKG did not show any significant QT prolongation Review of Systems Review of Systems: All systems reviewed and are unremarkable except as noted below Musculoskeletal: Complains pain at the back right hip with movement Physical Exam Physical Exam: Lying in bed without any distress Constitutional: well developed, well nourished and + obese; no acute distress (Minimal due to shortness of breath) and not ill appearing Eyes: PERRL, conjunctivae normal, anicteric sclerae ENMT: external ear and nose normal, oropharynx normal Neck: trachea midline, no thyromegaly Respiratory: normal respiratory effort; no respiratory distress (Minimal distress at rest) Auscultation: lungs clear to auscultation bilaterally Cardiovascular: Rate/Rhythm: regular rate, regular rhythm and + tachycardic Heart Sounds: no murmur Extremities: no edema Gastrointestinal (Abdomen): Inspection/Auscultation: abdomen normal to inspection and normal bowel sounds Percussion/Palpation: abdomen soft; abdomen nontender Musculoskeletal: Has back pain and nonspecific right hip pain with ambulation Neurologic: moves all extremities; no focal motor deficits Speech / Cognition: normal speech Psychiatric: Orientation: alert and oriented x 3 Mood: + depressed mood Lymphatic: no cervical or axillary lymphadenopathy Results & Data Results & Data ([facility]) Vital Signs (Past 12 Hours) Vital Signs Temp Pulse Pulse Resp BP BP Pulse Ox 08/03/19 08:00 88 08/03/19 07:26 90 120/83 08/03/19 07:03 37.0 C 88 17 120/83 94 08/03/19 03:54 37.2 C 97 H 19 113/80 91 08/02/19 23:27 37.8 C H 98 H 20 126/82 95 Medications Administered Current Inpatient Medications Acetaminophen (Tylenol) 650 mg PO Q4H PRN PRN Reason: Pain or Fever Stop: 08/27/19 11:19 Last Admin: 08/02/19 07:29 Dose: 650 mg Documented by: Amlodipine Besylate (Norvasc) 5 mg PO QAM [facility] Stop: 09/01/19 08:59 Last Admin: 08/03/19 07:24 Dose: 5 mg Documented by: Enoxaparin Sodium (Lovenox) 40 mg SQ Q24H [facility] Stop: 08/27/19 11:59 Last Admin: 08/02/19 12:19 Dose: 40 mg Documented by: Fentanyl (Duragesic) 50 mcg TD Q72H [facility]; Protocol Stop: 08/13/19 17:59 Last Admin: 08/02/19 07:33 Dose: 50 mcg Documented by: Gabapentin (Neurontin) 900 mg PO DAILY@2000 [facility] Stop: 08/28/19 19:59 Last Admin: 08/02/19 19:46 Dose: 900 mg Documented by: Gabapentin (Neurontin) 600 mg PO BID@0800,1200 [facility] Stop: 08/28/19 11:59 Last Admin: 08/03/19 07:24 Dose: 600 mg Documented by: Heparin Sodium (Porcine) (Heparin Sod 100 Unit/Ml Flush) 5 ml FLUSH PRN PRN PRN Reason: Flush Stop: 08/27/19 23:44 Last Admin: 08/01/19 20:40 Dose: 5 ml Documented by: Lorazepam (Ativan) 0.5 mg in 1 mls @ 0.5 mls/min IV Q8H PRN PRN Reason: Agitation Stop: 08/27/19 11:19 Last Admin: 07/28/19 22:51 Dose: 0.5 mls/min Documented by: Daptomycin 550 mg/ Syringe 11 mls @ 5.5 mls/min IV Q24H [facility]; Protocol Stop: 08/12/19 15:59 Last Admin: 08/02/19 15:36 Dose: 5.5 mls/min Documented by: Methadone HCl (Dolophine) 5 mg PO BID [facility] Stop: 08/16/19 12:44 Last Admin: 08/03/19 07:22 Dose: 5 mg Documented by: Metoprolol Succinate (Toprol Xl) 50 mg PO BID [facility] Stop: 08/31/19 09:59 Last Admin: 08/03/19 07:23 Dose: 50 mg Documented by: Miscellaneous (Fentanyl Patch Remove & Waste) 1 ea N/A Q3D [facility] Stop: 08/30/19 10:29 Last Admin: 08/03/19 07:59 Dose: Not Given Documented by: Miscellaneous (Fentanyl Patch Check Placement) 1 ea N/A QS [facility] Stop: 08/27/19 15:59 Last Admin: 08/03/19 07:24 Dose: 1 ea Documented by: Miscellaneous (Order Awaiting Action) 1 ea N/A QS [facility] Stop: 08/27/19 15:59 Last Admin: 08/03/19 07:58 Dose: Not Given Documented by: Miscellaneous Information (Consult) 1 ea N/A UD PRN PRN Reason: Consult Stop: 08/30/19 12:34 Morphine Sulfate (Morphine Sulfate Ir) 15 mg PO Q6H PRN PRN Reason: Severe Pain Stop: 08/11/19 11:19 Last Admin: 08/03/19 09:37 Dose: 15 mg Documented by: Naloxone HCl (Narcan) 0.1 mg IV UD PRN PRN Reason: Opiate Overdose Stop: 08/27/19 11:19 Ondansetron HCl (Zofran) 4 mg IV Q6H PRN PRN Reason: Nausea Stop: 08/27/19 11:19 Polyethylene Glycol (Miralax Powder Packet) 17 gm PO DAILY PRN PRN Reason: Constipation Stop: 08/27/19 11:19 Psyllium Hydrophilic Mucilloid (Metamucil) 1 pkt PO DAILY PRN PRN Reason: diarrhea Stop: 08/28/19 11:15
[2019-08-03] MEDS: ENOXAPARIN INJ 40 MG/0.4 ML SYR SQ SCH (11:48)
--- NOTE | 2019-08-03 14:01 | Palliative Care Progress Note ---
Date of Service August 03, 2019 Assessment & Plan (1) Goals of care, counseling/discussion: - Patient is a 64 year old male with a H current stage IV esophageal cancer s/p XRT completed 07/01/2019, hypertension, RA-on Plaquenil, chronic lower extremity lymphedema, cardiomyopathy with EF 30% via cardiac catheterization June 2018, who presented to the ED on 07/27 with severe back pain and was found to have septicemia. Blood cultures growing coag negative staph, urine growing enterococcus faecalis. Patient is now on IV daptomycin for next nine days. His metabolic encephalopathy is resolved and he is clinically doing much better. Patient originally presented this past March of 2019, with back pain with radiation to both hips. Patient underwent MRI which showed multiple compression fractures and bone lesions of the lumbar spine. A CT scan showed liver lesions consistent with metastatic disease. Patient underwent outpatient EGD on 05/31 and was found to have a fungating mass at the GE junction. Patient diagnosed with stage IV esophageal cancer. Patient did undergo palliative XRT to the spinal lesions, but only received 9 out of 10 planned fractions due to issues with pain and missed appointments. -Spoke with patient's , Alma Rosa, [phone], at length over phone. Discussed inpatient rehab-patient and would like to do home exercises with good pain control-discussed using the immediate release morphine every 2 hours as needed- monitor for sedation as well as constipation. Patient had been on Metamucil for loose stools-recommended he stop that and monitor for constipation-with use MiraLAX and adjust dose to effect. -Difficult to manage/adjust patient's long-acting medication while he is not getting out of bed, as his pain is much more controlled while he is lying flat. -Collaborated with case management. Plan is for patient to return home with home health and IV daptomycin for next nine days. is in agreement with this plan. -Patient's did state that they are well aware of patient's poor prognosis with this advanced cancer. However, they have made the decision to face this head on and pursue full treatment/full court press. The goal is to get patient to his appointment with Dr. Rosamaria tanner/onc to pursue chemotherapy. Patient had appointment scheduled for this afternoon, this was rescheduled. Alma Rosa states that they are under the impression that the plan is to treat with Herceptin and possibly Taxol. -Patient is to be started on Methadone 5mg BID, first dose 08/01, EKG this a.m. had a QTc of 474. Patient and both understand not to titrate his methadone is going to require EKGs to monitor the QTc interval -Dr. Perdmoo instructed patient to take Morphine 15mg half hour prior to any activity at home. -Discontinued Oxycodone. Continue fentanyl patch at 50mcg/hr. -Patient and will have close phone follow-up after discharge regarding pain management (2) Cancer related pain: (3) Metastatic adenocarcinoma to bone: (4) Sepsis: Subjective Patient seen and examined, no acute distress at rest. Patient did require for PRN immediate release morphine in the past 24 hours, patient was started on methadone 5 mg twice daily on 08/01. Patient has had 4 EKGs during this admission with a QTc interval ranging from 447-474 this a.m. Patient awake alert and oriented x4. Spoke with attending physician as well as case management regarding options for discharge, also spoke with patient's at length by phone regarding options including rehab as well as detailed instructions regarding pain management. Review of Systems Review of Systems: Patient denies fever, chills, chest pain, shortness of breath, or abdominal pain Positive back and lower extremity pain with movement Physical Exam Physical Exam: PE: No acute distress HEENT: Hearing within normal limits, EOMI Respirations: Unlabored CV: Regular rate, no edema Abdomen: Soft, nontender Extremities: Generalized weakness, full range of motion Neuro: Alert and oriented x4 Results & Data Vital Signs (Past 12 Hours) Vital Signs Temp Pulse Pulse Resp BP BP Pulse Ox 08/03/19 11:42 99.7 F H 92 H 18 136/84 91 08/03/19 10:15 98.6 F 90 17 120/83 120/83 94 08/03/19 08:00 88 08/03/19 07:26 90 120/83 08/03/19 07:03 98.6 F 88 17 120/83 94 08/03/19 03:54 99.0 F 97 H 19 113/80 91 PG Care Time/CCT Total # of Minutes Spent Total Time Spent with Patient: Total time spent 65 minutes with greater than 50% of the time spent at bedside assessing patient's current pain control as well as goals of care, collaborating with attending physician, case management and patient's . Prolonged Care Time Prolonged Care Time: Yes Total Prolonged Care Time: 30 Coding Level of Care Code 30679 Subseq Hosp Care Lvl 3 Diagnoses Goals of care, counseling/discussion Z71.89 Cancer related pain G89.3 Metastatic adenocarcinoma to bone C79.51 Sepsis A41.9 Sepsis acute organ dysfunction status: unspecified Sepsis type: sepsis due to unspecified organism Additional Codes Prolonged Care Time - Prolonged Care Time: Yes ([id number]) Time Spent (min) 65 Critical Care Time Prolonged Care Time Prolonged Care Time: Yes Total Prolonged Care Time: 30 65 (1) Sepsis Sepsis acute organ dysfunction status: unspecified Sepsis type: sepsis due to unspecified organism Qualified Code(s): A41.9 - Sepsis, unspecified organism
[2019-08-03] MEDS: DAPTOmycin 550 MG in SYRINGE 0 ML IV SCH (14:56)
--- NOTE | 2019-08-03 14:59 | Electrocardiogram Report ---
Test Reason : Blood Pressure : / mmHG Vent. Rate : 089 BPM Atrial Rate : 089 BPM P-R Int : 180 ms QRS Dur : 094 ms QT Int : 386 ms P-R-T Axes : 069 053 064 degrees QTc Int : 469 ms Poor data quality, interpretation may be adversely affected Sinus rhythm Likely normal When compared with ECG of 29-JUL-2019 07:48, Premature atrial complexes are no longer Present Confirmed by Jamal Trevizo ([id number]) on 08/03/2019 2:59:04 PM Referred By: REFERRED SELF Confirmed By:Jamal Trevizo
--- NOTE | 2019-08-03 15:00 | Electrocardiogram Report ---
Test Reason : Blood Pressure : / mmHG Vent. Rate : 088 BPM Atrial Rate : 088 BPM P-R Int : 164 ms QRS Dur : 118 ms QT Int : 358 ms P-R-T Axes : 061 037 055 degrees QTc Int : 433 ms Poor data quality, interpretation may be adversely affected Sinus rhythm with occasional Premature ventricular complexes Low voltage QRS Non-specific intra-ventricular conduction delay Nonspecific T wave abnormality Abnormal ECG When compared with ECG of 02-AUG-2019 12:09, (unconfirmed) Premature ventricular complexes are now Present Confirmed by Jamal Trevizo ([id number]) on 08/03/2019 3:00:12 PM Referred By: REFERRED SELF Confirmed By:Jamal Trevizo
--- NOTE | 2019-08-04 14:40 | Electrocardiogram Report ---
Test Reason : Blood Pressure : / mmHG Vent. Rate : 092 BPM Atrial Rate : 092 BPM P-R Int : 156 ms QRS Dur : 108 ms QT Int : 384 ms P-R-T Axes : 068 060 062 degrees QTc Int : 474 ms Normal sinus rhythm Normal ECG When compared with ECG of 02-AUG-2019 12:10, (unconfirmed) Premature ventricular complexes are no longer Present Confirmed by Jamal Trevizo ([id number]) on 08/04/2019 2:40:48 PM Referred By: REFERRED SELF Confirmed By:Jamal Trevizo
--- NOTE | 2019-08-16 13:58 | Discharge Summary ---
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 History obtained from pt's secondary to pt's current altered mental status. It is reported that at home pt with fever 102.8F yesterday and 103F 2 days ago. Yesterday was able to give Tylenol with limited relief of fever. Also noted confusion and agitation x 2 days. Has been difficult to get pt to take his medications, including his pain medications for back pain from spine mets. She did apply new fentanyl patch yesterday. Pt had one episode of vomiting yesterday. Denies pt c/o abdominal pain. It is reported pt with intermittent cough that is sometimes productive white and no recent change in this cough. No noted SOB or wheezing. Pt has not yet started chemo. Last radiation to spine 2-3 weeks ago and reports after pt had diarrhea for 5-7 days. She was giving pt probiotics and diarrhea has since resolved and pt having solid BM's. states pt urine has gotten darker over past 24 hours. Pt lives at home. Denies ill contacts or known COVID exposure. Denies recent travel. Denies noted syncope or LOC, noted rashes or edema. Recent hospitalization in 06/15/2019-06/18/2019 for intractable back pain secondary to bone mets and RLE cellulitis. Admission Exam Per Admitting Provider Physical Exam: General: Pt confused, agitated and appears uncomfortable, able to be reassured by pt's , WDWN Head: normocephalic, atraumatic Eyes: PERRL, EOM's intact, conjunctiva non-injected, anicteric ENT: normal inspection external ears, nose, mucous membranes dry Neck: supple, trachea midline Lungs: clear, no respiratory distress, no wheezing/rhonchi/rales CV: Tachycardia, P: 120, regular rhythm, no murmur, no pretibial edema Abd: normal BS, soft, no apparent tenderness to palpation Ext: +venous stasis changes to bilateral lower legs without erythema or edema, no noted calf tenderness Neuro: A&O x 3, no focal deficits noted, normal affect Skin: warm, dry; left knee with abrasion without surrounding erythema Principal Diagnosis Sepsis secondary to coagulase-negative staph bacteremia and UTI secondary to Enterococcus faecalis, GE junction carcinoma with metastasis, pain due to cancer, hypertension, nonischemic cardiomyopathy with EF of 35 to 40% Discharge Exam Constitutional well developed, well nourished and + obese; no acute distress (Minimal due to shortness of breath) and not ill appearing Eyes PERRL, conjunctivae normal, anicteric sclerae ENMT external ear and nose normal, oropharynx normal Neck trachea midline, no thyromegaly Respiratory normal respiratory effort; no respiratory distress (Minimal distress at rest) Auscultation: lungs clear to auscultation bilaterally Cardiovascular Rate/Rhythm: regular rate, regular rhythm and + tachycardic Heart Sounds: no murmur Extremities: no edema Gastrointestinal (Abdomen) Inspection/Auscultation: abdomen normal to inspection and normal bowel sounds Percussion/Palpation: abdomen soft; abdomen nontender Neurologic moves all extremities; no focal motor deficits Speech / Cognition: normal speech Psychiatric Orientation: alert and oriented x 3 Mood: + depressed mood Lymphatic no cervical or axillary lymphadenopathy Discharge Data Allergies Allergy/AdvReac Type Severity Reaction Status Date / Time No Known Allergies Allergy Verified 08/09/19 11:33 Consultations 07/28/19 10:08 ED Decision to Admit Stat 07/28/19 11:20 Consult Case Management - Discharge Planning Routine 08/01/19 09:51 Consult Case Management - Discharge Planning Routine 08/02/19 09:04 Consult Palliative Care Routine Ordered Studies 07/28/19 07:28 CT head/brain wo con Stat 07/28/19 09:14 CT chest without contrast [CT chest wo con] Stat Hospital Course (1) Sepsis: With coagulase negative Staphylococcus bacteremia likely secondary to UTI and doubt any pneumonia Blood culture is growing coagulase-negative staph and urine culture is growing enterococcus faecalis Has been on intravenous cefepime and vancomycin Clinically a little bit better today and will continue the current medications We will discontinue intravenous cefepime and continue with IV vancomycin Continue oral doxy to cover possible atypicals in lungs Clinically much better today Urine culture grew Enterococcus faecalis and blood culture grew coagulase- negative staph Both are sensitive to daptomycin Antibiotics were changed to daptomycin to continue for next 10 days Remains stable with decreasing white count and without any fever Will be discharged home this morning High blood pressure His blood pressure remains elevated and this morning it was 171/114 Also on metoprolol succinate 25 mg twice daily as an outpatient Has been getting IV Lopressor 5 mg every 6 hours to control the blood pressure Likely contributed by increasing pain Blood pressure remains elevated Will increase metoprolol succinate to 50 mg twice daily DC intravenous Lopressor We will add oral Norvasc's to control blood pressure Blood pressure seems to be well controlled (2) Metabolic encephalopathy: Confusion and agitation x 2 days in setting of fever and UTI -In ER given Ativan with decreased agitation -Monitor closely -Ativan prn agitation, careful administration with his chronic narcotic pain medication -As above-confusion resolved -Back to his baseline-resolved (3) UTI (urinary tract infection): Pt is 64 y/o M with PMH 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 In ER T: 38.3C, P: 126, R: 24, BP: 158/105, 96% on RA dropped to 89% on RA after Ativan given up to 93% on RA. WBC: 18, Lacatate: 1.5, Procalcitonin: 4.4, negative influenza PCR, UA: 2+leuk esterase, >30 WBC, 2+bacteria CT HEAD WITHOUT CONTRAST: No acute intracranial findings CT CHEST WITHOUT CONTRAST: 1. Findings highly suspicious for metastatic disease with pulmonary, hepatic and osseous involvement. Known underlying malignancy presumed from the presence of the Mediport. Dedicated abdominal imaging could be considered for confirmation of hepatic involvement. 2. Bandlike and wedgelike opacities in the posterior right lung, most likely atelectasis. The appearance is not characteristic of infectious infiltrates. 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 Has not started chemo. Follows with Dr Blank Had discussion in past and wants to continue to pursue full treatment Today CT Chest: Findings highly suspicious for metastatic disease with pulmonary involvement He is going to keep the appointment with oncologist at [facility] today Chronic pain Has been under care of palliative care He has been on fentanyl patch and oral narcotics Discussed with Dr. Perdomo We will get PT and OT evaluation before discharge Further adjustment of pain medications will be done as an outpatient Palliative care consulted as per request from the Appreciate palliative care input and recommendation Started on oral methadone for pain control Will have usual evaluation as an outpatient with palliative care (6) Paroxysmal atrial fibrillation: H/O PAF. Not on Coumadin Sinus tachycardia currently -Monitor on tele -heart rate remains elevated at around 100 -Oral metoprolol restarted (7) CKD (chronic kidney disease), stage III: Cr: 1.0. Baseline Cr: ~1.6 -Avoid nephrotoxic agents when possible -Monitor renal functions -Kidney function is better today -Renal function is normalized (8) Nonischemic cardiomyopathy: H/O ischemic cardiomyopathy EF: 35-40% in 06/2018 with EF>70% in 10/2018 No signs of fluid overload (9) Chronic anemia: H/H: 9.9/29. Baseline Hgb~12 No signs of bleeding -Hemoglobin is 8.8 as of 07/29/2019: Multifactorial without any evidence of overt bleeding and likely secondary to infection and cancer with metastasis -Hemoglobin remains stable at 9.4 as of 08/02/2019 (10) Rheumatoid arthritis: -Continue Plaquenil DVT Prophylaxis -Lovenox SQ Admit tele Full Code as per discussion with pt's . Pt was full code prior admission also Follows with Dr Jaquez for routine care Discussed with the Likely to be discharged this afternoon if IV antibiotic can be arranged as an outpatient Likely be discharged this morning Total Time Total Time Spent Total Time Spent (In Minutes): 35 minutes Total Time Includes: Examination of the Patient, Discharge Planning, Medication Reconciliation and Communication With Other Providers Discharge Plan Discharge Items Patient Disposition: Home - Home Health Services Reason For Visit: UTI,METABOLIC ENCEPHLOPATHY Discharge Diagnosis: Sepsis secondary to coagulase-negative staph bacteremia and UTI secondary to Enterococcus faecalis, GE junction carcinoma with metastasis, pain due to cancer, hypertension, nonischemic cardiomyopathy with EF of 35 to 40% Condition on Discharge: Fair Activity: Resume your previous activity Non-emergency contact: Primary Care Provider Call non-emergency contact if: you have any medication questions and your symptoms worsen Follow-up/Referrals: Grzegorz Jaquez DO [Primary Care Provider] - 08/09/19 11:20 am (Dr. Bhatti would like to have a telephonic follow-up.) Diet: Heart Healthy Ambulatory Orders: Complete Blood Count with Diff (Routine) Timeframe: 1 Week Location: Determined by Patient Ordered By: Yimi Mederos Creatine Kinase (Routine) Timeframe: 1 Week Location: Determined by Patient Ordered By: Yimi Mederos Comprehensive Metabolic Panel (Routine) Timeframe: 1 Week Location: Determined by Patient Ordered By: Yimi Mederos Erythrocyte Sedimentation Rate (Routine) Timeframe: 1 Week Location: Determined by Patient Ordered By: Yimi Pierre Attending Provider Instructions: Please take precaution to avoid falls. Take your pain medications as advised IV daptomycin will be continued for 8 more days and a prescription for that has been sent. Keep regular follow-up appointment with Dr. 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 If this is inconvenient, please call [facility] to reschedule. Pending Studies at Discharge: No Stand-Alone Forms: My [employer], Smoking Cessation Medications and DC Order Prescriptions: New metoprolol succinate 50 mg Tablet Extended Release 24 Hr 50 mg PO BID 30 Days Qty: 60 RF: 0 Lactinex 1 million cell tablet,chewable 1 tab PO TID Qty: 30 RF: 0 Continued gabapentin 300 mg capsule 600 mg PO UD RF: 0 hydroxychloroquine 200 mg tablet 400 mg PO DAILY@2000 RF: 0 polyethylene glycol 3350 [Miralax] 17 gram Powder In Packet 17 g PO DAILY PRN (Reason: constipation) Qty: 30 RF: 0 naloxone 4 mg/actuation spray,non-aerosol 4 mg intranasal DIRECTED PRN (Reason: Opiate Reversal) RF: 0 Metamucil 3.4 gram/5.4 gram Powder 1 tbsp PO DAILY PRN (Reason: Diarrhea) RF: 0 acetaminophen [Tylenol Extra Strength] 500 mg Tablet 1,000 mg PO Q6H RF: 0 gabapentin 300 mg capsule 900 mg PO DAILY@2000 RF: 0 fentanyl 50 mcg/hr patch 72 hour 1 patch TD Q72H 10 Days Qty: 3 RF: 0 morphine 15 mg tablet 15 mg PO Q6H PRN (Reason: Pain) 3 Days Qty: 10 RF: 0 Discontinued metoprolol succinate 25 mg tablet extended release 24 hr 25 mg PO BID RF: 0 oxycodone 10 mg tablet 10 mg PO Q4H PRN (Reason: Pain) RF: 0 No Action methadone 5 mg tablet 5 mg PO BID RF: 0 aspirin 81 mg Tablet,Delayed Release (Dr/Ec) 81 mg PO DAILY Qty: 30 RF: 0 Discharge Orders: Discharge Order (Routine); Ordered 08/03/19 Ordered By: Yimi Mederos Admission Data Admit Date/Time: 07/28/19 10:04 Attending Provider: Yimi Mederos Admit Provider: Yimi Mederos Primary Care Provider: Grzegorz Jaquez Other Providers: Yimi Mederos ; [facility] ; Emmy Perdomo Other Interventions: Discharge Summary Assessment (RN) Last Done: 08/03/19 10:15 DC Date/Time DO NOT enter until pt leaves facility: 08/03/19 17:25
== END 2019-08-03 17:25 | disposition home health service (06) | DRG 871 ==
LOC: ED 07:20 → 2E 10:04 → 2S 08-02 14:18

== ENCOUNTER 2019-08-09 10:42 | Inpatient (IN) ==
[2019-08-09] MEDS ORDERED: SODIUM CHLORIDE 0.9% 1000ML 2,000 ML IV ONE (11:03)
--- NOTE | 2019-08-09 11:09 | Emergency Department Note ---
Impression & Plan Sepsis, Hypoxia, Leukocytosis ED Provider Note NAME: MARK NORRIS AGE: 64 SEX: M : 1955 ARRIVES VIA: Ambulance INFORMANT: Patient, EMS ED PROVIDER(S): Calos Mckeon DO CHIEF COMPLAINT: Fever HPI: Patient is a 65-year-old male who presents the ER for fevers and sweating. 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 Recent admission Blood culture was growing coagulase-negative staph and urine culture was growing enterococcus faecalis which are both being treated by IV daptomycin which he has been receiving at home. He was discharged on the seventh and has been getting IV daptomycin at home. Per report from EMS, notes that he was confused this morning. He did have a temperature greater than 100.4. He notes he has had a productive wet cough for the past 2 to 3 weeks which has worsened. Patient does admit to shortness of breath. He denies any new belly or back pain. He notes the methadone is helping with his chronic pain. ROS: See above HPI for pertinent positives & negatives. A total of 10 systems reviewed and were otherwise negative. PAST MEDICAL HISTORY:See Below PAST SURGICAL HISTORY:See Below FAMILY HISTORY:See Below SOCIAL HISTORY:See Below HOME MEDICATIONS:See Below ALLERGIES:See Below VITALS:See Below PHYSICAL EXAMINATION: GENERAL: Sitting up in bed, ill-appearing, diaphoretic, on nasal cannula EYE EXAM: normal conjunctiva. PERRL and EOM's grossly intact. OROPHARYNX: no exudate, no erythema, lips, buccal mucosa, and tongue normal and mucous membranes are moist NECK: supple, no nuchal rigidity, no adenopathy, non-tender LUNGS: Clear to auscultation. Normal chest wall mechanics HEART: no murmurs, S1 normal and S2 normal ABDOMEN: abdomen soft, non-tender, normo-active bowel sounds, no masses, no rebound or guarding. SKIN: no rashes and no bruising UPPER EXTREMITIES: upper extremities are grossly normal. LOWER EXTREMITIES: No pitting edema. Calves are equal bilateral NEURO EXAM: Normal sensorium, cranial nerves II-XII grossly intact, normal speech, no gross weakness of arms, no gross weakness of legs. MEDICAL DECISION MAKING: Patient is a 64-year-old male with a past medical history metastatic cancer with bacteremia currently on daptomycin presents the ER for confusion and a fever. He was also found to be hypoxic has had a cough and admits to some shortness of breath. IV was established blood work was obtained. Labs showed a leukocytosis of 20,000. This is up from 16,000. Persistent anemia at 9.6. BMP with mild hyponatremia. LFTs troponin was unremarkable. UA was negative. Discussed with the hospitalist after IV antibiotics were given including cefepime and vancomycin. They recommended rapid Covid testing and they will see the patient afterwards. Influenza had already been negative. Patient was updated at [facility]. He denied any pleuritic chest pain. Calves were bilateral. With the fever and the productive cough did not feel consistent with PEs. Patient was updated at bedside. He was discussed with the hospitalist. He was given 2 L IV fluids in combination with broad-spectrum antibiotics and admitted for further work-up. Triage Nursing notes reviewed. Prior medical records reviewed Vital Signs: reviewed and remarkable for febrile and tachycardic Differential diagnosis: Differential diagnosis includes etiologies such as sepsis, UTI, pneumonia, metabolic, electrolyte abnormalities, cardiac sources, intracerebral event, toxicologic, neurological, as well as others were entertained. ER treatment provided: See below Diagnostics interpreted by me: ECG: Sinus tachycardia rate of 101 Poor baseline No PVCs Normal QTC Cardiac Monitoring: Sinus tachycardia rate of 102 Laboratory studies: As stated above and show below. Imaging studies: Portable AP upright 1 view of the chest shows no new focal infiltrate. Consultation(s): Discussed with the hospitalist for admission. ED COURSE: Procedures: none Critical Care: I have personally spent 40 minutes of critical care time in the direct management of this patient. This includes bedside care, interpretation of diagnostic studies, and testing, discussion with consultants, patient, and family members, and other required patient management activities. This 40 minutes is in excess of all separately billable procedures. Past Med/Surg History Medical History (Updated 08/09/19 @ 16:08 by Calos Mckeon DO) Acute hypoxemic respiratory failure 06/2018 Afib Recent confinement June 2018 for new diagnosis of heart failure. Paroxysmal A. fib noted during confinement. Patient discharged on Eliquis for anticoagulation.> PT REPORTS NO LONGER ON ELIQUIS> THIS WAS ISOLATED INCIDENT Eliquis discontinued a few months later by brick grader after outpatient tel emetry did not show recurrent AF. Anxiety Atypical chest pain Cancer associated pain (Inactive) Cardiomyopathy Severe LV dysfunction with EF of 30% found on admission June 2018. TTE 11/02/2018 showed resolution of cardiomyopathy with EF greater than 70%. Chronic anemia CKD (chronic kidney disease), stage III Constipation Elevated troponin 06/2018. Cardiac catheterization performed during admission showed severe LV dysfunction with EF of 30% but large-caliber coronaries with minimal irregularities at most. Elevation felt secondary to demand ischemia from cardiomyopathy/fluid overload. GE junction carcinoma GERD (gastroesophageal reflux disease) HX Hypertension Malignant neoplasm of gastroesophageal junction REASON FOR PROCEDURE > RADIATION AT PRESENT Metastatic cancer to spine (Inactive) Nonischemic cardiomyopathy Paroxysmal atrial fibrillation Pathologic compression fracture of lumbar vertebra L5 with retropulsion > W/C AT PRESENT Pneumonia 06/2018 Rheumatoid arthritis Surgical History History of cardiac cath JUNE 2018 > FOR C.P/SOB > [facility] > NO STENTS History of tooth extraction Hx of colonoscopy Social History Preferred Language: Vietnamese Communication Ability: Unable Manager Intelligence Required: No Beliefs That Will Affect Care: None marital status: Current Living Situation: Spouse Feels Safe at Home: Yes Smoking Status: Never smoker Second Hand Exposure: No ; Hx Alcohol Use: No Hx Substance Use: No Allergies Allergies Allergy/AdvReac Type Severity Reaction Status Date / Time No Known Allergies Allergy Verified 08/09/19 11:33 Home Meds Home Medications Medication Instructions Recorded Confirmed gabapentin 600 mg PO UD 06/14/19 08/09/19 hydroxychloroquine 400 mg PO DAILY@199906/14/19 08/09/19 naloxone 4 mg INTRANASAL DIRECTED PRN 06/28/19 08/09/19 Metamucil 1 tbsp PO DAILY PRN 06/30/19 08/09/19 acetaminophen [Tylenol Extra 1,000 mg PO Q6H 07/28/19 08/09/19 Strength] gabapentin 900 mg PO DAILY@199907/28/19 08/09/19 methadone 5 mg PO BID 08/09/19 08/09/19 Previous Rx's Medication Instructions Recorded polyethylene glycol 3350 [Miralax] 17 g PO DAILY PRN #30 ea 06/18/19 Lactobacillus acidoph-L.bulgar 1 tab PO TID #30 tab 08/03/19 [Lactinex] fentanyl 1 patch TD Q72H 10 Days #3 ea 08/03/19 metoprolol succinate 50 mg PO BID 30 Days #60 tab 08/03/19 morphine 15 mg PO Q6H PRN 3 Days #10 tab 08/03/19 Results & Data (ED) Vital Signs Vital Signs - 24 hr 08/09/19 10:53 08/09/19 10:54 08/09/19 11:00 Temperature Temperature Source Pulse Rate 102 H 102 H Pulse Rate from SpO2 Sensor 102 H 102 H 100 H Pulse Rhythm Pulse Strength Respiratory Rate 19 23 22 Respiratory Effort / Characteristics Respiratory Depth Respiratory Pattern Blood Pressure 100/63 121/78 Blood Pressure Mean 69 98 Pulse Oximetry 95 96 97 Oxygen Delivery Method Oxygen Flow Rate Sepsis Recent Fever Within 48 Hours Sepsis Action Taken by Nursing 08/09/19 11:17 08/09/19 11:30 08/09/19 12:00 Temperature 37.9 C H Temperature Source Oral Pulse Rate 105 H Pulse Rate from SpO2 Sensor Pulse Rhythm Regular Pulse Strength Normal Respiratory Rate 22 Respiratory Effort / Characteristics Non-Labored Spontaneous Respiratory Depth Normal Respiratory Pattern Regular Blood Pressure 121/78 109/80 138/85 Blood Pressure Mean 92 90 113 Pulse Oximetry 94 Oxygen Delivery Method Nasal Cannula Oxygen Flow Rate 4 Sepsis Recent Fever Within 48 Hours No Sepsis Action Taken by Nursing No Action Required 08/09/19 12:15 08/09/19 12:30 08/09/19 13:00 Temperature Temperature Source Pulse Rate 92 H 90 88 Pulse Rate from SpO2 Sensor Pulse Rhythm Pulse Strength Respiratory Rate 23 16 25 H Respiratory Effort / Characteristics Respiratory Depth Respiratory Pattern Blood Pressure 111/97 139/89 Blood Pressure Mean 102 105 Pulse Oximetry Oxygen Delivery Method Oxygen Flow Rate Sepsis Recent Fever Within 48 Hours Sepsis Action Taken by Nursing 08/09/19 13:30 Temperature Temperature Source Pulse Rate 87 Pulse Rate from SpO2 Sensor Pulse Rhythm Pulse Strength Respiratory Rate 19 Respiratory Effort / Characteristics Respiratory Depth Respiratory Pattern Blood Pressure 139/92 Blood Pressure Mean 109 Pulse Oximetry Oxygen Delivery Method Oxygen Flow Rate Sepsis Recent Fever Within 48 Hours Sepsis Action Taken by Nursing Laboratory Data Result diagrams: 08/09/19 11:04 08/09/19 11:04 Lab Results 08/09/19 08/09/19 08/09/19 Range/Units 11:04 11:04 11:04 WBC 20.22 H (4.8-10.8) K/uL RBC 3.56 L (4.7-6.1) M/uL Hgb 9.6 L (14.0-18.0) g/dL Hct 30.1 L (42-52) % MCV 84.6 (80-100) fL MCH 27.0 (25-34) pg MCHC 31.9 L (32-36) g/dL RDW Std Deviation 49.4 H (36.4-46.3) fL RDW Coeff of Arlyn 15.9 H (11.5-14.5) % Plt Count 913 H (130-400) K/uL MPV 8.6 (7.4-10.4) fL Immature Gran % (Auto) 0.8 % Neut % (Auto) 86.0 % Lymph % (Auto) 4.4 % [place] % (Auto) 7.5 % Eos % (Auto) 1.1 % Baso % (Auto) 0.2 % Immature Gran # (Auto) 0.16 H (0.00-0.02) K/uL Neut # (Auto) 17.39 H (1.4-6.5) K/uL Lymph # (Auto) 0.89 L (1.2-3.4) K/uL [place] # (Auto) 1.52 H (0.11-0.59) K/uL Eos # (Auto) 0.22 (0-0.5) K/uL Baso # (Auto) 0.04 (0-0.2) K/uL PT 12.4 H (9.0-12.0) Seconds INR 1.2 H (0.9-1.1) APTT 34.2 H (21.0-31.0) Seconds PTT Ratio 1.2 Sodium 130 L (136-145) mmol/L Potassium 5.0 (3.5-5.1) mmol/L Chloride 96 L (98-107) mmol/L Carbon Dioxide 27 (21-32) mmol/L Anion Gap 7.0 (3-11) BUN 16 (7-18) mg/dl Creatinine 1.31 (0.6-1.4) mg/dl Est Cr Clr Drug Dosing 81.5 ml/min Est GFR ( Amer) 66.7 Est GFR (Non-Af Amer) 57.5 BUN/Creatinine Ratio 12.1 (10-20) Glucose 80 (70-99) mg/dl Lactate (0.4-2.0) mmol/L Calcium 8.9 (8.5-10.1) mg/dl Magnesium 2.1 (1.8-2.4) mg/dl Total Bilirubin 0.3 (0.2-1) mg/dl AST 92 H (15-37) U/L ALT 31 (12-78) U/L Alkaline Phosphatase 739 H (45-117) U/L Troponin I < 0.015 (0-0.045) ng/ml Total Protein 7.1 (6.4-8.2) gm/dl Albumin 2.2 L (3.4-5.0) gm/dl Globulin 4.9 H (2.5-4.0) gm/dl Albumin/Globulin Ratio 0.4 L (0.9-2) Specimen Hemolysis Urine Color Urine Appearance (Clear) Urine pH (4.5-7.5) Ur Specific [place] (1.000-1.030) Urine Protein (Negative) Urine Glucose (UA) (Negative) Urine Ketones (Negative) Urine Blood (Negative) Urine Nitrite (Negative) Urine Bilirubin (Negative) Urine Urobilinogen (Negative) Ur Leukocyte Esterase (Negative) Urine WBC (Auto) (0-5) /hpf Urine RBC (Auto) (0-4) /hpf U Hyaline Cast (Auto) (0-5) /lpf U Epithel Cells (Auto) (0-5) /lpf Urine Bacteria (Auto) (Negative) COVID-19 PCR (Negative) Influenza Type A (PCR) (Neg) Influenza Type B (PCR) (Neg) 08/09/19 08/09/19 08/09/19 Range/Units 11:04 11:11 12:17 WBC (4.8-10.8) K/uL RBC (4.7-6.1) M/uL Hgb (14.0-18.0) g/dL Hct (42-52) % MCV (80-100) fL MCH (25-34) pg MCHC (32-36) g/dL RDW Std Deviation (36.4-46.3) fL RDW Coeff of Arlyn (11.5-14.5) % Plt Count (130-400) K/uL MPV (7.4-10.4) fL Immature Gran % (Auto) % Neut % (Auto) % Lymph % (Auto) % [place] % (Auto) % Eos % (Auto) % Baso % (Auto) % Immature Gran # (Auto) (0.00-0.02) K/uL Neut # (Auto) (1.4-6.5) K/uL Lymph # (Auto) (1.2-3.4) K/uL [place] # (Auto) (0.11-0.59) K/uL Eos # (Auto) (0-0.5) K/uL Baso # (Auto) (0-0.2) K/uL PT (9.0-12.0) Seconds INR (0.9-1.1) APTT (21.0-31.0) Seconds PTT Ratio Sodium (136-145) mmol/L Potassium (3.5-5.1) mmol/L Chloride (98-107) mmol/L Carbon Dioxide (21-32) mmol/L Anion Gap (3-11) BUN (7-18) mg/dl Creatinine (0.6-1.4) mg/dl Est Cr Clr Drug Dosing ml/min Est GFR ( Amer) Est GFR (Non-Af Amer) BUN/Creatinine Ratio (10-20) Glucose (70-99) mg/dl Lactate 1.5 (0.4-2.0) mmol/L Calcium (8.5-10.1) mg/dl Magnesium (1.8-2.4) mg/dl Total Bilirubin (0.2-1) mg/dl AST (15-37) U/L ALT (12-78) U/L Alkaline Phosphatase (45-117) U/L Troponin I (0-0.045) ng/ml Total Protein (6.4-8.2) gm/dl Albumin (3.4-5.0) gm/dl Globulin (2.5-4.0) gm/dl Albumin/Globulin Ratio (0.9-2) Specimen Hemolysis Urine Color Urine Appearance (Clear) Urine pH (4.5-7.5) Ur Specific [place] (1.000-1.030) Urine Protein (Negative) Urine Glucose (UA) (Negative) Urine Ketones (Negative) Urine Blood (Negative) Urine Nitrite (Negative) Urine Bilirubin (Negative) Urine Urobilinogen (Negative) Ur Leukocyte Esterase (Negative) Urine WBC (Auto) (0-5) /hpf Urine RBC (Auto) (0-4) /hpf U Hyaline Cast (Auto) (0-5) /lpf U Epithel Cells (Auto) (0-5) /lpf Urine Bacteria (Auto) (Negative) COVID-19 PCR NEGATIVE (Negative) Influenza Type A (PCR) Neg for Influ A (Neg) Influenza Type B (PCR) Neg for Influ B (Neg) 08/09/19 Range/Units 12:17 WBC (4.8-10.8) K/uL RBC (4.7-6.1) M/uL Hgb (14.0-18.0) g/dL Hct (42-52) % MCV (80-100) fL MCH (25-34) pg MCHC (32-36) g/dL RDW Std Deviation (36.4-46.3) fL RDW Coeff of Arlyn (11.5-14.5) % Plt Count (130-400) K/uL MPV (7.4-10.4) fL Immature Gran % (Auto) % Neut % (Auto) % Lymph % (Auto) % [place] % (Auto) % Eos % (Auto) % Baso % (Auto) % Immature Gran # (Auto) (0.00-0.02) K/uL Neut # (Auto) (1.4-6.5) K/uL Lymph # (Auto) (1.2-3.4) K/uL [place] # (Auto) (0.11-0.59) K/uL Eos # (Auto) (0-0.5) K/uL Baso # (Auto) (0-0.2) K/uL PT (9.0-12.0) Seconds INR (0.9-1.1) APTT (21.0-31.0) Seconds PTT Ratio Sodium (136-145) mmol/L Potassium (3.5-5.1) mmol/L Chloride (98-107) mmol/L Carbon Dioxide (21-32) mmol/L Anion Gap (3-11) BUN (7-18) mg/dl Creatinine (0.6-1.4) mg/dl Est Cr Clr Drug Dosing ml/min Est GFR ( Amer) Est GFR (Non-Af Amer) BUN/Creatinine Ratio (10-20) Glucose (70-99) mg/dl Lactate (0.4-2.0) mmol/L Calcium (8.5-10.1) mg/dl Magnesium (1.8-2.4) mg/dl Total Bilirubin (0.2-1) mg/dl AST (15-37) U/L ALT (12-78) U/L Alkaline Phosphatase (45-117) U/L Troponin I (0-0.045) ng/ml Total Protein (6.4-8.2) gm/dl Albumin (3.4-5.0) gm/dl Globulin (2.5-4.0) gm/dl Albumin/Globulin Ratio (0.9-2) Specimen Hemolysis Urine Color Yellow Urine Appearance Clear (Clear) Urine pH 6.0 (4.5-7.5) Ur Specific [place] 1.015 (1.000-1.030) Urine Protein 1+ H (Negative) Urine Glucose (UA) Negative (Negative) Urine Ketones Negative (Negative) Urine Blood Negative (Negative) Urine Nitrite Negative (Negative) Urine Bilirubin Negative (Negative) Urine Urobilinogen Negative (Negative) Ur Leukocyte Esterase Negative (Negative) Urine WBC (Auto) 1-5 (0-5) /hpf Urine RBC (Auto) 0-4 (0-4) /hpf U Hyaline Cast (Auto) 5-10 H (0-5) /lpf U Epithel Cells (Auto) 20-30 H (0-5) /lpf Urine Bacteria (Auto) Negative (Negative) COVID-19 PCR (Negative) Influenza Type A (PCR) (Neg) Influenza Type B (PCR) (Neg) Administered Medications Sodium Chloride (Nss 1000ml) 1,000 mls @ 80 mls/hr IV .[id number] JANE Stop: 08/10/19 10:00 Last Admin: 08/09/19 15:32 Dose: 80 mls/hr Documented by: [id number] Piperacillin Sod/Tazobactam (Sod 4.5 gm/ Dextrose) 120 mls @ 200 mls/hr IV 1600 ONE; Protocol Stop: 08/09/19 16:35 Last Admin: 08/09/19 15:55 Dose: 200 mls/hr Documented by: [id number] Daptomycin 525 mg/ Syringe 10.5 mls @ 5.25 mls/min IV Q24H JANE; Protocol Stop: 08/23/19 15:59 Last Admin: 08/09/19 15:55 Dose: 5.25 mls/min Documented by: [id number] Ioversol (Optiray 320 125ml) 119 ml IV ONCE PRN PRN Reason: Interaction Checking Stop: 08/13/19 14:29 Last Admin: 08/09/19 14:31 Dose: 119 ml Documented by: [id number] Miscellaneous (Order Awaiting Action) 1 ea N/A QS JANE Stop: 09/08/19 15:59 Last Admin: 08/09/19 15:55 Dose: Not Given Documented by: [id number] Miscellaneous (Fentanyl Patch Check Placement) 1 ea N/A QS JANE Stop: 09/08/19 15:59 Last Admin: 08/09/19 15:55 Dose: 1 ea Documented by: [id number] Discontinued Medications Aspirin (Ecotrin Ectab) 81 mg PO ONCE STA Stop: 08/09/19 15:44 Last Admin: 08/09/19 15:49 Dose: 81 mg Documented by: [id number] Sodium Chloride (Nss 1000ml) 2,000 mls @ 999 mls/hr IV .Q2H1M ONE Stop: 08/09/19 13:03 Last Infusion: 08/09/19 13:27 Dose: 0 mls/hr Documented by: [id number] Admin: 08/09/19 11:24 Dose: 999 mls/hr Documented by: [id number] Cefepime HCl 2,000 mg/ Syringe 20 mls @ 5.5 mls/min IV NOW STA; Protocol Stop: 08/09/19 11:55 Last Admin: 08/09/19 12:09 Dose: 5.5 mls/min Documented by: [id number] Vancomycin HCl 2,250 mg/ (Sodium Chloride) 545 mls @ 200 mls/hr IV NOW ONE Stop: 08/09/19 14:35 Last Infusion: 08/09/19 15:04 Dose: 0 mls/hr Documented by: [id number] Admin: 08/09/19 12:09 Dose: 200 mls/hr Documented by: [id number] Sodium Chloride (Nss) 500 mls @ 999 mls/hr IV .Q31M ONE Stop: 08/09/19 14:34 Last Infusion: 08/09/19 14:44 Dose: 0 mls/hr Documented by: [id number] Admin: 08/09/19 14:15 Dose: 999 mls/hr Documented by: [id number] Discharge Plan Visit Data *Final* Discharge Date/Time: 08/09/19 14:31 Chief Complaint: Fever ED Provider: Calos Mckeon Discharge Problem: Sepsis, Hypoxia, Leukocytosis Patient Disposition: Admitted As Inpatient Discharge Instructions Interventions: ED Discharge Assessment Last Done: 08/09/19 14:31 Discharge Problem: Sepsis Qualifiers: Sepsis type: sepsis due to unspecified organism Sepsis acute organ dysfunction status: unspecified Qualified Code(s): A41.9 - Sepsis, unspecified organism Leukocytosis Qualifiers: Leukocytosis type: unspecified Qualified Code(s): D72.829 - Elevated white blood cell count, unspecified
[2019-08-09 11:28] LABS: Basophils # (auto) 0.04 K/uL (0-0.2); Basophils % (auto) 0.2 %; Eosinophils # (auto) 0.22 K/uL (0-0.5); Eosinophils % (auto) 1.1 %; Hematocrit (blood only) 30.1 % (42-52); Hemoglobin 9.6 g/dL (14.0-18.0); Immature Granulocytes # (auto) 0.16 K/uL (0.00-0.02); Immature Granulocytes % (auto) 0.8 %; Lymphocytes # (auto) 0.89 K/uL (1.2-3.4); Lymphocytes % (auto) 4.4 %; Mean Corpuscular Hgb Conc 31.9 g/dL (32-36); Mean Corpuscular Volume 84.6 fL (80-100); Mean Platelet Volume 8.6 fL (7.4-10.4); Monocytes # (auto) 1.52 K/uL (0.11-0.59); Monocytes % (auto) 7.5 %; Neutrophils # (auto) 17.39 K/uL (1.4-6.5); Platelet Count 913 K/uL (130-400); RDW Coefficient of Variation 15.9 % (11.5-14.5); RDW Standard Deviation 49.4 fL (36.4-46.3); Red Blood Count 3.56 M/uL (4.7-6.1); White Blood Count 20.22 K/uL (4.8-10.8)
--- NOTE | 2019-08-09 11:42 | XRay Report ---
XR chest 1V portable HISTORY: SEPSIS COMPARISON: Chest 07/28/2019. FINDINGS: No pneumothorax. No pleural effusions. The heart is normal in size. No new focal lung conso lidations to suggest pneumonia. No evidence for pulmonary edema. Right jugular Port-A-Cath terminates at the brachiocephalic/internal jugular vein junction. This remains unchanged. A 7 mm nodule within the left midlung zone. Destructive lesion within the right fourth lateral rib is again noted. This is consistent with metastatic disease. IMPRESSION: 1. No new focal lung consolidations to suggest pneumonia. 2. Metastatic disease as described above is again noted. ACT 112: Negative or not required by law. Electronically signed by: Ludin Roque M.D. 08/09/2019 11:40 AM
[2019-08-09 11:45] LABS: INR 1.2 (0.9-1.1); Partial Thromboplastin Ratio 1.2; Partial Thromboplastin Time 34.2 Seconds (21.0-31.0); Prothrombin Time 12.4 Seconds (9.0-12.0)
[2019-08-09 11:50] LABS: Alanine Aminotransferase 31 U/L (12-78); Albumin Level 2.2 gm/dl (3.4-5.0); Aspartate Aminotransferase 92 U/L (15-37); BUN Creatinine Ratio 12.1 (10-20); Blood Urea Nitrogen 16 mg/dl (7-18); Calcium 8.9 mg/dl (8.5-10.1); Carbon Dioxide 27 mmol/L (21-32); Chloride 96 mmol/L (98-107); Creatinine Clr Calc Pharmacy 81.5 ml/min; Est GFR (African American) 66.7; Est GFR (Non-African American) 57.5; Glucose 80 mg/dl (70-99); Magnesium 2.1 mg/dl (1.8-2.4); Sodium 130 mmol/L (136-145)
[2019-08-09 11:51] LABS: Albumin Globulin Ratio 0.4 (0.9-2); Alkaline Phosphatase 739 U/L (45-117); Bilirubin,Total 0.3 mg/dl (0.2-1); Globulin 4.9 gm/dl (2.5-4.0); Total Protein 7.1 gm/dl (6.4-8.2); Troponin I < 0.015 ng/ml (0-0.045)
[2019-08-09] MEDS ORDERED: VANCOMYCIN HCL 2,250 MG in SODIUM CHLORIDE 0.9% 500 ML IV ONE (11:52)
[2019-08-09] MEDS ORDERED: VANCOMYCIN CONSULT ACTIVE PRN (11:52)
[2019-08-09] MEDS ORDERED: CEFEPIME 2,000 MG in SYRINGE 7.5 ML IV STA (11:52)
[2019-08-09 12:02] LABS: Influenza A virus by PCR Neg for Influ A (Neg); Influenza B virus by PCR Neg for Influ B (Neg)
[2019-08-09 12:51] LABS: Appearance Urine Clear (Clear); Bacteria Urine Automated Negative (Negative); Bilirubin Urine Negative (Negative); Blood Urine Negative (Negative); Color Urine Yellow; Epithelial Cell Urine Auto 20-30 /lpf (0-5); Glucose Urine UA Negative (Negative); Ketones Urine Negative (Negative); Leukocyte Esterase Urine Negative (Negative); Nitrite Urine Negative (Negative); Protein Urine 1+ (Negative); RBC Urine Automated 0-4 /hpf (0-4); Specific Gravity Urine 1.015 (1.000-1.030); Urobilinogen Urine Negative (Negative)
--- NOTE | 2019-08-09 13:46 | Electrocardiogram Report ---
Test Reason : Blood Pressure : / mmHG Vent. Rate : 101 BPM Atrial Rate : 101 BPM P-R Int : 156 ms QRS Dur : 108 ms QT Int : 348 ms P-R-T Axes : 067 030 065 degrees QTc Int : 451 ms Poor data quality, interpretation may be adversely affected Sinus tachycardia Otherwise normal ECG When compared with ECG of 03-AUG-2019 08:19, No significant change was found Confirmed by Regan Ortega ([id number]) on 08/09/2019 1:45:43 PM Referred By: REFERRED SELF Confirmed By:Regan Ortega
[2019-08-09] MEDS ORDERED: SODIUM CHLORIDE 0.9% 500 ML IV ONE (14:04)
[2019-08-09] MEDS ORDERED: POLYETHYLENE (MIRALAX) 17 GM PACK PO PRN (14:25)
[2019-08-09] MEDS ORDERED: ASPIRIN 81 MG ECTAB PO STA ×2 (14:27→15:43)
[2019-08-09] MEDS ORDERED: ACETAMINOPHEN 325 MG TAB PO PRN ×3 (14:28→15:43)
[2019-08-09] MEDS ORDERED: OPTIRAY 320 125ml IV PRN (14:30)
--- NOTE | 2019-08-09 14:35 | History & Physical Report ---
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 -palliative care recommending pain control regimen that includes methadone 5 mg twice a day to treat for cancer associated pain as well as Fentanyl patch for generalized pain control and Morphine for breakthrough pain -continue home pain medications and give also acetaminophen prn for mild pain or fever, give bowel regimen to prevent constipation -also takes gabapentin for neuropathic pain -patient was supposed to follow up with of [facility] oncology clinic on 08/11/2019 but he was sent to the ED from home Fever Leukocytosis - when he presented to the ED on 07/28/2019 with severe back pain and was found to have urine growing enterococcus faecalis and blood cultures growing coagulase negative staphylococcus (not lugdunensis). Patient was discharged on 08/03/2019 with outpatient IV daptomycin via port access - However, patient was sent to the ED on 08/09/2019 with report from EMS notes that he was confused this morning and had a temperature greater than 100.4 Fahrenheit. Patient reports that he thinks the multiple body temperature measurements at home were 101 F to 102 F. ED admission temperature of 100.2 Fahrenheit (37.9 Celsius). ED physician keven blood cultures and empirically started cefepime 2000 milligram IV and Vancomycin 2250 mg IV. -Influenza negative. Screening test for COVID-19 also performed and is negative -admission urine analysis rules out urinary tract infection -hospitalist team will change empiric treatment from Cefepime to Zosyn to expand antibiotic coverage for better efficacy for enterococcus coverage. Resume home dose Daptomycin instead of Vancomycin to preserve renal function -follow admission blood culture Hypoxia -review of previous hospitalization showed that patient was on supplementary oxygen -however, no home oxygen use at home and patient denies chronic hypoxia -Patient also placed on 4 liters/min nasal cannula in the ED on this admission when oxygen saturation f around mid 80s on room air. -titrate oxygen supplementation as needed -There does not appear to be any pneumonia or pulmonary edema on chest X ray (only abnormalities of A 7 mm nodule within the left midlung zone. Destructive lesion within the right fourth lateral rib is again noted. This is consistent with metastatic disease.) -Patient generally bed ridden because of cancer related pain and agrees to CTA to rule out pulmonary embolism Acute Kidney Injury - 08/02/2019 creatinine is 0.65 from last hospital stay -admission 08/03/2019 creatinine is 1.31 -monitor creatinine after IV fluids Hyponatremia -admission serum sodium is 130 -monitor serum sodium while on normal saline Rheumatoid Arthritis -continue home dose Plaquenil (hydroxychloroquine) Hypertension -continue home dose metoprolol Cardiomyopathy -EF 30% via cardiac catheterization June 2018, history -no chest pain Paroxysmal atrial fibrillation -History of Paroxysmal atrial fibrillation and not on systemic anticoagulation but recent hospitalization with sinus rhythm -currently in sinus rhythm Anemia, chronic -hemoglobin stable above 9 Thrombocythemia -previous admission of platelets above 400 k/ul but below 500. 08/02/2019 labs of increase to 670. -on 08/09/2019 admission, the platelets are now 913 -because of the increase of platelets can lead to increase of thrombosis or stroke, will need to start patient at least on low dose aspirin daily. DVT prophylaxis: if pulmonary embolism is ruled out then plans for heparin subcutaneous 500 units q12 hours and aspirin 81 mg daily -PT/OT, case management services requested Code Status: Full Code Alma Rosa ([phone]) My colleague Dr. 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 Other chronic medical conditions of Rheumatoid Arthritis on Plaquenil (hydroxychloroquine), and cardiomyopathy with EF 30% via cardiac catheterization June 2018, history Paroxysmal atrial fibrillation and not on systemic anticoagulation but recent hospitalization with sinus rhythm, Anemia, Hypertension Patient was recently discharged from a hospitalization at [facility] which started on 07/28/2019 when he presented to the ED on 07/28/2019 with severe back pain and was found to have urine growing enterococcus faecalis and blood cultures growing coagulase negative staphylococcus (not lugdunensis). Patient was discharged on 08/03/2019 with treatment plan to continue daptomycin as outpatient and palliative care recommending pain control regimen that includes methadone 5 mg twice a day to treat for cancer associated pain of hip/pelvic area/lumbar spine as well as Fentanyl patch for generalized pain control and Morphine for breakthrough pain. Outpatient chart review suggests that the daptomycin course should have been completed by 08/11/2019. At home from discharge, patient reports that initially he had poor oral intake and vomited for few days but these symptoms resolved with Zofran and his appetite has recently improved. He also reports that the discharge pain regimen of methadone twice a day and Fentanyl patch was working well and rarely needed break through pain medication of morphine. Patient also breathed on room air at home as per his normal baseline. However, patient was sent to the ED on 08/09/2019 with report from EMS notes that he was confused in the morning and had a temperature greater than 100.4 Fahrenheit. Patient reports that he thinks the multiple body temperature measurements at home were 101 F to 102 F. ED admission temperature of 100.2 Fahrenheit (37.9 Celsius). Patient also placed on 4 liters/min nasal cannula. ED physician keven blood cultures and empirically started cefepime 2000 milligram IV and Vancomycin 2250 mg IV. Admission Chest X ray does not show new lung infiltrates that would suggest pneumonia or pulmonary edema. There remains A 7 mm nodule within the left midlung zone. Destructive lesion within the right fourth lateral rib is again noted that is consistent with metastatic disease Influenza negative. Screening test for COVID-19 also performed and is negative No swelling of lower extremities but there appears to be chronic skin discoloration of the skin of lower extremities. No calf tenderness. Patient denies problems with urination or with bowel movements Allergies: Patient denies any drug or food allergies Family History: Patient reports his mother had multiple hospitalizations in the past for urinary tract infections Primary Care Provider: Grzegorz Jaquez DO Allergies Allergy/AdvReac Type Severity Reaction Status Date / Time No Known Allergies Allergy Verified 08/09/19 11:33 Home Medications Home Medications Medication Instructions Recorded Confirmed Type gabapentin 600 mg PO UD 06/14/19 08/09/19 History hydroxychloroquine 400 mg PO DAILY@199906/14/19 08/09/19 History polyethylene glycol 3350 [Miralax] 17 g PO DAILY PRN #30 ea 06/18/19 08/09/19 Rx naloxone 4 mg INTRANASAL DIRECTED PRN 06/28/19 08/09/19 History Metamucil 1 tbsp PO DAILY PRN 06/30/19 08/09/19 History acetaminophen [Tylenol Extra 1,000 mg PO Q6H 07/28/19 08/09/19 History Strength] gabapentin 900 mg PO DAILY@199907/28/19 08/09/19 History Lactobacillus acidoph-L.bulgar 1 tab PO TID #30 tab 08/03/19 08/09/19 Rx [Lactinex] fentanyl 1 patch TD Q72H 10 Days #3 ea 08/03/19 08/09/19 Rx metoprolol succinate 50 mg PO BID 30 Days #60 tab 08/03/19 08/09/19 Rx morphine 15 mg PO Q6H PRN 3 Days #10 tab 08/03/19 08/09/19 Rx methadone 5 mg PO BID 08/09/19 08/09/19 History Past Med/Surg History Medical History (Updated 08/04/19 @ 00:02 by Background Daemon) Acute hypoxemic respiratory failure 06/2018 Afib Recent confinement June 2018 for new diagnosis of heart failure. Paroxysmal A. fib noted during confinement. Patient discharged on Eliquis for anticoagulation.> PT REPORTS NO LONGER ON ELIQUIS> THIS WAS ISOLATED INCIDENT Eliquis discontinued a few months later by lathing supervisor after outpatient telemetry did not show recurrent AF. Anxiety Atypical chest pain Cancer associated pain (Inactive) Cardiomyopathy Severe LV dysfunction with EF of 30% found on admission June 2018. TTE 11/02/2018 showed resolution of cardiomyopathy with EF greater than 70%. Chronic anemia CKD (chronic kidney disease), stage III Constipation Elevated troponin 06/2018. Cardiac catheterization performed during admission showed severe LV dysfunction with EF of 30% but large-caliber coronaries with minimal irregularities at most. Elevation felt secondary to demand ischemia from cardiomyopathy/fluid overload. GE junction carcinoma GERD (gastroesophageal reflux disease) HX Hypertension Malignant neoplasm of gastroesophageal junction REASON FOR PROCEDURE > RADIATION AT PRESENT Metastatic cancer to spine (Inactive) Nonischemic cardiomyopathy Paroxysmal atrial fibrillation Pathologic compression fracture of lumbar vertebra L5 with retropulsion > W/C AT PRESENT Pneumonia 06/2018 Rheumatoid arthritis Surgical History History of cardiac cath JUNE 2018 > FOR C.P/SOB > [facility] > NO STENTS History of tooth extraction Hx of colonoscopy Social History Preferred Language: Wolof Communication Ability: Unable Neckties Painter Required: No Beliefs That Will Affect Care: None marital status: Current Living Situation: Spouse Feels Safe at Home: Yes Smoking Status: Never smoker Second Hand Exposure: No ; Hx Alcohol Use: No Hx Substance Use: No Review of Systems Review of Systems: All systems reviewed & are unremarkable except as noted in HPI & below Physical Exam Constitutional: cooperative and comfortable Eyes: PERRL, conjunctivae normal, anicteric sclerae EOM intact bilaterally ENMT: external ear and nose normal, oropharynx normal Neck: normal visual inspection Respiratory: normal respiratory effort, lungs clear to auscultation normal respiratory effort Cardiovascular: Rate/Rhythm: regular rate and regular rhythm Gastrointestinal (Abdomen): normal bowel sounds, soft, nontender, no hepatosplenomegaly Musculoskeletal: Head/Neck/Chest: normocephalic Skin: No swelling of lower extremities but there appears to be chronic skin discoloration of the skin of lower extremities. No calf tenderness Neurologic: PERRL, EOMI, accommodation nl, no face palsy, no dysarthria Psychiatric: A+Ox3, euthymic affect Results & Data Results & Data ([facility]) Vital Signs (Past 12 Hours) Vital Signs Temp Pulse Resp BP Pulse Ox 08/09/19 14:00 37.1 C 90 17 142/95 H 95 08/09/19 13:30 87 19 139/92 08/09/19 13:00 88 25 H 139/89 08/09/19 12:30 90 16 111/97 08/09/19 12:15 92 H 23 08/09/19 12:00 138/85 08/09/19 11:30 109/80 08/09/19 11:17 37.9 C H 105 H 22 121/78 94 08/09/19 11:00 22 121/78 97 08/09/19 10:54 102 H 23 100/63 96 08/09/19 10:53 102 H 19 95 Code Status & VTE Plan VTE Prophylaxis Plan VTE Prophylaxis will be ordered: Yes
--- NOTE | 2019-08-09 14:46 | CT Scan Report ---
CT ANGIOGRAM OF THE CHEST CLINICAL HISTORY: Fever. COMPARISON STUDY: Chest x-ray dated 08/09/2019. Chest CT scans dated 07/28/2019 and 07/08/2018. TECHNIQUE: Following the IV administration of 119 cc of Optiray 320, CT angiogram of the chest was pe rformed from the upper abdomen to the thoracic inlet utilizing the pulmonary embolus protocol. Images are reviewed in the axial, sagittal, and coronal planes. 3-D MIPS images are created and assessed. I V contrast was administered without complication. A dose lowering technique was utilized adhering to the principles of ALARA. CT DOSE: 848.48 mGy.cm FINDINGS: Thyroid: Imaged portions of the thyroid gland are normal in size and attenuation. Thoracic aorta: The thoracic aorta is normal in caliber and demonstrates standard 3-vessel arch anato my. No dissection is seen. The left common carotid artery is diminutive. Pulmonary vasculature: The pulmonary trunk is normal in caliber. There are no filling defects identif ied in main, lobar, or segmental pulmonary branches to suggest pulmonary embolus. Heart: A right internal jugular central venous infusion port is in place. The heart is top normal in size and without pericardial effusion. Lungs and pleural spaces: Emphysematous change is noted. The trachea and central airways are clear. F oci of scarring/atelectasis are present at the lung bases and in the right upper lobe. There is trace right pleural effusion. Findings are consistent with multifocal pulmonary metastatic disease with gr eater than 20 lesions identified. Pulmonary lesions measure up to 1.0 cm. Cargo Worker lesions are seen in the right lower lobe on image #102, the left lower lobe on images #73, #102, #154, and #170, and in the left upper lobe on image #120. This has not appreciably changed from 07/28/2019. Mediastinum: There is no mediastinal lymphadenopathy. Zohreh: Clear. Axillae: There is no axillary lymphadenopathy. Upper abdomen: The liver is cirrhotic in morphology and heterogeneous in attenuation. There is nodula rity of the hepatic surface contour. There are numerous low-attenuation hepatic lesions identified ty pical in appearance for metastatic disease. There is a small hiatal hernia. An enlarged lymph node ju st below the esophageal hiatus on image #22 measures 2.0 x 1.7 cm. Skeletal structures: The skeletal structures are osteopenic. There is evidence of multifocal osseous metastatic disease. A large permeative lesion is seen within the body of the sternum with associated pathologic fracture. There is a large destructive lesion within the right posterior 8th rib at the co stovertebral junction with pathologic fracture. There is also likely pathologic fracture of the right transverse process of T7. There is a large destructive lesion with pathologic fracture involving the right lateral 4th rib. A large lesion is also identified within the manubrium. IMPRESSION: 1. There is no evidence of pulmonary embolus in the main, lobar, or segmental pulmonary arteries. 2. There is evidence of multifocal pulmonary, hepatic, and osseous metastatic disease as above. There is also metastatic upper abdominal adenopathy. Correlation with the patient's oncological history wi ll be required. This is similar in appearance to the 07/28/2019 examination. 3. Pathologic fractures as above. 4. Emphysema. 5. Trace right pleural effusion. 6. There is no airspace consolidation typical for pneumonia. 7. Cirrhotic liver morphology. 8. Additional findings as above. ACT 112: Negative or not required by law. Electronically signed by: Han Pgae M.D. 08/09/2019 2:45 PM
[2019-08-09] MEDS ORDERED: ONDANSETRON INJ 2 MG/ML 2 ML VIAL IV PRN (14:55)
[2019-08-09] MEDS ORDERED: HEPARIN SOD 5,000 UNIT/0.5 ML VIAL SQ SCH (15:01)
[2019-08-09] MEDS ORDERED: DAPTOMYCIN CONSULT ACTIVE PRN (15:01)
[2019-08-09] MEDS ORDERED: SODIUM CHLORIDE 0.9% 1000ML 1,000 ML IV SCH (15:01)
[2019-08-09] MEDS ORDERED: PIPERACILL/TAZOBAC CONSULT ACTIVE PRN (15:01)
[2019-08-09] MEDS ORDERED: DAPTOmycin 500 MG VIAL IV SCH (15:01)
[2019-08-09] MEDS: SODIUM CHLORIDE 0.9% 1000ML 1,000 ML IV SCH (15:32)
[2019-08-09] MEDS ORDERED: NALOXONE HCL 0.4 MG/1 ML VIAL/CARP IV PRN (15:45)
[2019-08-09] MEDS: CHECK FENTANYL PATCH PLACEMENT SCH (15:55)
[2019-08-09] MEDS ORDERED: PIPERACILLIN/TAZOBACTAM 4.5 GM in DEXTROSE 5% 100 ML IV ONE (16:00)
[2019-08-09] MEDS ORDERED: DAPTOmycin 525 MG in SYRINGE 0 ML IV SCH (16:00)
[2019-08-09 18:09] LABS: Oxygen Saturation VBG 72.1 %; pH VBG 7.34 (7.36-7.41)
[2019-08-09 18:30] LABS: BUN Creatinine Ratio 14.2 (10-20); Calcium 8.5 mg/dl (8.5-10.1); Creatinine Clr Calc Pharmacy 90.6 ml/min; Est GFR (African American) 75.7; Est GFR (Non-African American) 65.3; Potassium 4.1 mmol/L (3.5-5.1)
[2019-08-09] MEDS: HEPARIN SOD 5,000 UNIT/0.5 ML VIAL SQ SCH (20:17)
[2019-08-09] MEDS: GABAPENTIN 300 MG CAP PO SCH (20:20)
[2019-08-09] MEDS: METOPROLOL SUCC 50MG EXT REL TAB PO SCH (20:20)
[2019-08-09] MEDS: METHADONE HCL 5 MG TAB PO SCH (20:20)
[2019-08-09] MEDS: DOCUSATE SODIUM 100 MG CAP PO SCH (20:20)
[2019-08-09] MEDS: PIPERACILLIN/TAZOBACTAM 3.375 GM in DEXTROSE 5% 100 ML IV SCH (22:11)
[2019-08-10] MEDS: CHECK FENTANYL PATCH PLACEMENT SCH ×3 (00:01→16:14)
[2019-08-10] MEDS: SODIUM CHLORIDE 0.9% 1000ML 1,000 ML IV SCH (03:47)
[2019-08-10] MEDS: MoRPHine SULFATE IR 15 MG TAB (IMMEDIATE RELEASE) PO PRN (04:31)
[2019-08-10] MEDS: PIPERACILLIN/TAZOBACTAM 3.375 GM in DEXTROSE 5% 100 ML IV SCH ×3 (05:51→22:21)
[2019-08-10 05:56] LABS: Hematocrit (blood only) 26.3 % (42-52); Hemoglobin 8.3 g/dL (14.0-18.0); Mean Corpuscular Hemoglobin 26.6 pg (25-34); Mean Corpuscular Hgb Conc 31.6 g/dL (32-36); Mean Corpuscular Volume 84.3 fL (80-100); Mean Platelet Volume 8.1 fL (7.4-10.4); Platelet Count 646 K/uL (130-400); RDW Coefficient of Variation 15.9 % (11.5-14.5); Red Blood Count 3.12 M/uL (4.7-6.1); White Blood Count 15.28 K/uL (4.8-10.8)
[2019-08-10 05:57] LABS: Base Excess VBG 0.9 mEq/L; HCO3 VBG 27 mmol/L; Oxygen Saturation VBG < 60.0 %; PCO2 VBG 47 mmHg (38-50); PO2 VBG 35 mmHg; pH VBG 7.37 (7.36-7.41)
[2019-08-10 06:26] LABS: Albumin Level 1.9 gm/dl (3.4-5.0); BUN Creatinine Ratio 14.4 (10-20); Calcium 8.5 mg/dl (8.5-10.1); Creatinine Clr Calc Pharmacy 106.9 ml/min; Est GFR (African American) 92.4; Est GFR (Non-African American) 79.7; Potassium 4.1 mmol/L (3.5-5.1)
[2019-08-10 06:29] LABS: Albumin Globulin Ratio 0.4 (0.9-2); Bilirubin,Total 0.4 mg/dl (0.2-1); Globulin 4.4 gm/dl (2.5-4.0); Total Protein 6.3 gm/dl (6.4-8.2)
[2019-08-10] MEDS: HEPARIN SOD 5,000 UNIT/0.5 ML VIAL SQ SCH ×2 (08:00→20:16)
[2019-08-10] MEDS: DOCUSATE SODIUM 100 MG CAP PO SCH ×2 (08:01→20:15)
[2019-08-10] MEDS: METOPROLOL SUCC 50MG EXT REL TAB PO SCH ×2 (08:01→20:15)
[2019-08-10] MEDS: SENNA 8.6 MG TAB PO SCH (08:01)
[2019-08-10] MEDS: GABAPENTIN 300 MG CAP PO SCH ×3 (08:01→20:15)
[2019-08-10] MEDS: METHADONE HCL 5 MG TAB PO SCH ×2 (08:01→20:14)
[2019-08-10] MEDS: ASPIRIN 81 MG ECTAB PO SCH (08:02)
--- NOTE | 2019-08-10 10:00 | Discharge Summary ---
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 History obtained from pt's secondary to pt's current altered mental status. It is reported that at home pt with fever 102.8F yesterday and 103F 2 days ago. Yesterday was able to give Tylenol with limited relief of fever. Also noted confusion and agitation x 2 days. Has been difficult to get pt to take his medications, including his pain medications for back pain from spine mets. She did apply new fentanyl patch yesterday. Pt had one episode of vomiting yesterday. Denies pt c/o abdominal pain. It is reported pt with intermittent cough that is sometimes productive white and no recent change in this cough. No noted SOB or wheezing. Pt has not yet started chemo. Last radiation to spine 2-3 weeks ago and reports after pt had diarrhea for 5-7 days. She was giving pt probiotics and diarrhea has since resolved and pt having solid BM's. states pt urine has gotten darker over past 24 hours. Pt lives at home. Denies ill contacts or known COVID exposure. Denies recent travel. Denies noted syncope or LOC, noted rashes or edema. Recent hospitalization in 06/15/2019-06/18/2019 for intractable back pain secondary to bone mets and RLE cellulitis. Admission Exam Per Admitting Provider Physical Exam: General: Pt confused, agitated and appears uncomfortable, able to be reassured by pt's , WDWN Head: normocephalic, atraumatic Eyes: PERRL, EOM's intact, conjunctiva non-injected, anicteric ENT: normal inspection external ears, nose, mucous membranes dry Neck: supple, trachea midline Lungs: clear, no respiratory distress, no wheezing/rhonchi/rales CV: Tachycardia, P: 120, regular rhythm, no murmur, no pretibial edema Abd: normal BS, soft, no apparent tenderness to palpation Ext: +venous stasis changes to bilateral lower legs without erythema or edema, no noted calf tenderness Neuro: A&O x 3, no focal deficits noted, normal affect Skin: warm, dry; left knee with abrasion without surrounding erythema Principal Diagnosis Sepsis,Metabolic encephalopathy,HTN,Metastatic adenocarcinoma Discharge Exam Physical Exam: Lying in bed without any distress Constitutional: well developed, well nourished and + obese; no acute distress (Minimal due to shortness of breath) and not ill appearing Eyes: PERRL, conjunctivae normal, anicteric sclerae ENMT: external ear and nose normal, oropharynx normal Neck: trachea midline, no thyromegaly Respiratory: normal respiratory effort; no respiratory distress (Minimal distress at rest) Auscultation: lungs clear to auscultation bilaterally Cardiovascular: Rate/Rhythm: regular rate, regular rhythm and + tachycardic Heart Sounds: no murmur Extremities: no edema Gastrointestinal (Abdomen): Inspection/Auscultation: abdomen normal to inspection and normal bowel sounds Percussion/Palpation: abdomen soft; abdomen nontender Musculoskeletal: Has back pain and nonspecific right hip pain with ambulation Neurologic: moves all extremities; no focal motor deficits Speech / Cognition: normal speech Psychiatric: Orientation: alert and oriented x 3 Mood: + depressed mood Lymphatic: no cervical or axillary lymphadenopathy Discharge Data Allergies Allergy/AdvReac Type Severity Reaction Status Date / Time No Known Allergies Allergy Verified 08/09/19 11:33 Consultations 08/09/19 12:05 ED Decision to Admit Stat 08/09/19 15:01 Consult Case Management - Discharge Planning Routine Ordered Studies 08/09/19 14:03 CT angio chest PE protocol Stat Hospital Course (1) Metastatic adenocarcinoma to bone: -64 year old male with a PMH of metastatic gastroesophageal (GE) junction adenocarcinoma with metastasis confirmed of the liver, 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 -palliative care recommending pain control regimen that includes methadone 5 mg twice a day to treat for cancer associated pain as well as Fentanyl patch for generalized pain control and Morphine for breakthrough pain -continue home pain medications and give also acetaminophen prn for mild pain or fever, give bowel regimen to prevent constipation -also takes gabapentin for neuropathic pain -patient was supposed to follow up with of [facility] oncology clinic on 08/11/2019 but he was sent to the ED from home Fever Leukocytosis - when he presented to the ED on 07/28/2019 with severe back pain and was found to have urine growing enterococcus faecalis and blood cultures growing coagulase negative staphylococcus (not lugdunensis). Patient was discharged on 08/03/2019 with outpatient IV daptomycin via port access - However, patient was sent to the ED on 08/09/2019 with report from EMS notes that he was confused this morning and had a temperature greater than 100.4 Fahrenheit. Patient reports that he thinks the multiple body temperature measurements at home were 101 F to 102 F. ED admission temperature of 100.2 Fahrenheit (37.9 Celsius). ED physician keven blood cultures and empirically started cefepime 2000 milligram IV and Vancomycin 2250 mg IV. -Influenza negative. Screening test for COVID-19 also performed and is negative -admission urine analysis rules out urinary tract infection -hospitalist team will change empiric treatment from Cefepime to Zosyn to expand antibiotic coverage for better efficacy for enterococcus coverage. Resume home dose Daptomycin instead of Vancomycin to preserve renal function -follow admission blood culture Hypoxia -review of previous hospitalization showed that patient was on supplementary oxygen -however, no home oxygen use at home and patient denies chronic hypoxia -Patient also placed on 4 liters/min nasal cannula in the ED on this admission when oxygen saturation f around mid 80s on room air. -titrate oxygen supplementation as needed -There does not appear to be any pneumonia or pulmonary edema on chest X ray (only abnormalities of A 7 mm nodule within the left midlung zone. Destructive lesion within the right fourth lateral rib is again noted. This is consistent with metastatic disease.) -Patient generally bed ridden because of cancer related pain and agrees to CTA to rule out pulmonary embolism Acute Kidney Injury - 08/02/2019 creatinine is 0.65 from last hospital stay -admission 08/03/2019 creatinine is 1.31 -monitor creatinine after IV fluids Hyponatremia -admission serum sodium is 130 -monitor serum sodium while on normal saline Rheumatoid Arthritis -continue home dose Plaquenil (hydroxychloroquine) Hypertension -continue home dose metoprolol Cardiomyopathy -EF 30% via cardiac catheterization June 2018, history -no chest pain Paroxysmal atrial fibrillation -History of Paroxysmal atrial fibrillation and not on systemic anticoagulation but recent hospitalization with sinus rhythm -currently in sinus rhythm Anemia, chronic -hemoglobin stable above 9 Thrombocythemia -previous admission of platelets above 400 k/ul but below 500. 08/02/2019 labs of increase to 670. -on 08/09/2019 admission, the platelets are now 913 -because of the increase of platelets can lead to increase of thrombosis or stroke, will need to start patient at least on low dose aspirin daily. DVT prophylaxis: if pulmonary embolism is ruled out then plans for heparin subcutaneous 500 units q12 hours and aspirin 81 mg daily -PT/OT, case management services requested Code Status: Full Code Alma Rosa ([phone]) My colleague Dr. Candelario will be the hospitalist for the patient starting on 08/10/2019 Total Time Total Time Spent Total Time Spent (In Minutes): 35 minutes Total Time Includes: Examination of the Patient, Discharge Planning, Medication Reconciliation and Communication With Other Providers Discharge Plan Discharge Items Reason For Visit: FEVER Follow-up/Referrals: Grzegorz Jaquez DO [Primary Care Provider] - Stand-Alone Forms: My [facility] Medications and DC Order Prescriptions: No Action gabapentin 300 mg capsule 600 mg PO UD RF: 0 hydroxychloroquine 200 mg tablet 400 mg PO DAILY@1999 RF: 0 polyethylene glycol 3350 [Miralax] 17 gram Powder In Packet 17 g PO DAILY PRN (Reason: constipation) Qty: 30 RF: 0 methadone 5 mg tablet 5 mg PO BID RF: 0 naloxone 4 mg/actuation spray,non-aerosol 4 mg intranasal DIRECTED PRN (Reason: Opiate Reversal) RF: 0 Metamucil 3.4 gram/5.4 gram Powder 1 tbsp PO DAILY PRN (Reason: Diarrhea) RF: 0 acetaminophen [Tylenol Extra Strength] 500 mg Tablet 1,000 mg PO Q6H RF: 0 gabapentin 300 mg capsule 900 mg PO DAILY@1999 RF: 0 metoprolol succinate 50 mg Tablet Extended Release 24 Hr 50 mg PO BID 30 Days Qty: 60 RF: 0 Lactinex 1 million cell tablet,chewable 1 tab PO TID Qty: 30 RF: 0 fentanyl 50 mcg/hr patch 72 hour 1 patch TD Q72H 10 Days Qty: 3 RF: 0 morphine 15 mg tablet 15 mg PO Q6H PRN (Reason: Pain) 3 Days Qty: 10 RF: 0 Admission Data Admit Date/Time: 08/09/19 13:48 Attending Provider: Libby Candelario Admit Provider: Mau Parnell Primary Care Provider: Grzegorz Jaquez Other Providers: Mau Parnell.
--- NOTE | 2019-08-10 15:18 | Hospitalist Progress Note ---
Date of Service August 10, 2019 Assessment & Plan (1) Fever, unknown origin: Was brought to the ER after noticed her to be confused WBC on admission 20K CXR showed no new focal lung consolidations to suggest pneumonia. UA negative for UTI CTA chest showed no evidence of pulmonary embolus in the main, lobar, or segmental pulmonary arteries and no airspace consolidation typical for pneumonia. nfluenza negative. Screening test for COVID-19 also performed and is negative Received IV cefepime in the ER WBC trending down to 15K Has been getting IV Dapto infusion as an outpatient to be completed by 08/11/2019. Continue IV dapto and IV zosyn starting yesterday Blood cx pending If blood cx showed no growth, will d/c IV Zosyn tomorrow and completes last dose of Dapto tomorrow, then D/C home Clinically improves (2) Metastatic adenocarcinoma to bone: (1) Malignant neoplasm of gastroesophageal junction: (2) Pathologic compression fracture of lumbar vertebra: (3) Metastatic cancer to spine: (4) Intractable back pain: CT showed evidence of multifocal pulmonary, hepatic, and osseous metastatic disease. Pain has been stable with the methadone 5 mg twice a day to treat for cancer associated pain as well as Fentanyl patch for generalized pain control and Morphine for breakthrough pain Follow up with [facility] Oncology Dr. Blank Stable Hypoxia CTA showed no evidence of PE Saturated well on RA Resolved CKD 3 Creatinine stable Avoid nephrotoxic agents Monitor BMP Hyponatremia Sodium 130 on admission Continue monitor BMP Cardiomyopathy Last ECHO showed reduced EF btw 35-40% Continue metoprolol 25mg BID Stable Thrombocytosis Platelet on admission 913 Platelet improves to 646 today Continue aspirin Monitor CBC Rheumatoid Arthritis Continue home dose Plaquenil (hydroxychloroquine) Hx Atrial fibrillation Rate controlled on NSR on metoprolol Stable DVT px on heparin subq Code Status Full Code Admission and Anticipated Discharge Date Admission Date: August 09, 2019 Subjective Pt was seen and examined Lying in bed with no distress Pt said that he feels much better today He said that his breathing is good Saturated well on RA Denies any chest pain, palpitation, dizziness and SOB Physical Exam Physical Exam: General- No acute distress Head- atraumatic Eyes- PERRL, EOMI, ENT- oropharynx clear Neck- supple, no JVD Lungs- clear to auscultation Heart- regular rhythm; no murmur Abdomen- normal bowel sounds, soft, nontender Extremities- No calf tenderness Neuro- alert, oriented x 3; PERRL, EOMI; no facial palsy; no dysarthria Skin- warm & dry Results & Data Results & Data ([facility]) Vital Signs (Past 12 Hours) Vital Signs Temp Pulse Resp BP Pulse Ox 08/10/19 07:40 37.1 C 88 18 129/82 95
[2019-08-10] MEDS: DAPTOmycin 550 MG in SYRINGE 0 ML IV SCH (16:14)
[2019-08-11] MEDS: CHECK FENTANYL PATCH PLACEMENT SCH ×3 (00:15→15:40)
[2019-08-11] MEDS: HEPARIN 100 UNIT/ML 5ML FLUSH FLUSH PRN ×3 (02:33→09:38)
[2019-08-11] MEDS: PIPERACILLIN/TAZOBACTAM 3.375 GM in DEXTROSE 5% 100 ML IV SCH (05:48)
[2019-08-11 06:06] LABS: Hematocrit (blood only) 27.6 % (42-52); Hemoglobin 8.6 g/dL (14.0-18.0); Mean Corpuscular Hemoglobin 26.5 pg (25-34); Mean Corpuscular Hgb Conc 31.2 g/dL (32-36); Mean Corpuscular Volume 84.9 fL (80-100); Mean Platelet Volume 8.5 fL (7.4-10.4); Platelet Count 687 K/uL (130-400); RDW Coefficient of Variation 16.2 % (11.5-14.5); RDW Standard Deviation 49.9 fL (36.4-46.3); Red Blood Count 3.25 M/uL (4.7-6.1); White Blood Count 14.82 K/uL (4.8-10.8)
[2019-08-11 06:37] LABS: BUN Creatinine Ratio 12.6 (10-20); Calcium 8.9 mg/dl (8.5-10.1); Creatinine Clr Calc Pharmacy 113.7 ml/min; Est GFR (African American) 99.6; Est GFR (Non-African American) 85.9; Potassium 3.9 mmol/L (3.5-5.1)
[2019-08-11] MEDS: METHADONE HCL 5 MG TAB PO SCH ×2 (08:07→20:39)
[2019-08-11] MEDS: HEPARIN SOD 5,000 UNIT/0.5 ML VIAL SQ SCH ×2 (08:07→20:41)
[2019-08-11] MEDS: METOPROLOL SUCC 50MG EXT REL TAB PO SCH ×2 (08:08→20:40)
[2019-08-11] MEDS: ASPIRIN 81 MG ECTAB PO SCH (08:08)
[2019-08-11] MEDS: GABAPENTIN 300 MG CAP PO SCH ×3 (08:08→20:40)
[2019-08-11] MEDS: DOCUSATE SODIUM 100 MG CAP PO SCH ×2 (08:08→20:40)
[2019-08-11] MEDS: SENNA 8.6 MG TAB PO SCH (08:08)
[2019-08-11] MEDS ORDERED: fentaNYL 50 MCG/HR TDSY TD SCH (09:00)
[2019-08-11] MEDS: MoRPHine SULFATE IR 15 MG TAB (IMMEDIATE RELEASE) PO PRN ×3 (10:18→23:35)
--- NOTE | 2019-08-11 11:52 | Hospitalist Progress Note ---
Date of Service August 11, 2019 Assessment & Plan (1) Fever, unknown origin: Was brought to the ER after noticed her to be confused WBC on admission 20K which improved subsequently CXR showed no new focal lung consolidations to suggest pneumonia. UA negative for UTI CTA chest showed no evidence of pulmonary embolus in the main, lobar, or segmental pulmonary arteries and no airspace consolidation typical for pneumonia. nfluenza negative. Screening test for COVID-19 also performed and is negative Received IV cefepime in the ER and that are changed to intravenous Zosyn Has been getting IV Dapto infusion as an outpatient to be completed by 08/11/2019. Blood cx pending -negative for 24 hours We will stop Zosyn today and observe him overnight If remains stable he can be discharged tomorrow (2) Metastatic adenocarcinoma to bone: (1) Malignant neoplasm of gastroesophageal junction: (2) Pathologic compression fracture of lumbar vertebra: (3) Metastatic cancer to spine: (4) Intractable back pain: CT showed evidence of multifocal pulmonary, hepatic, and osseous metastatic disease. Pain has been stable with the methadone 5 mg twice a day to treat for cancer associated pain as well as Fentanyl patch for generalized pain control and Mo rphine for breakthrough pain Follow up with [facility] [place] [facility] Oncology Dr. Blank Elevated alkaline phosphate could be secondary to metastatic disease Remains stable Hypoxia Noted once by the EMS at home but never noted afterwards and has been saturating well on room air CTA showed no evidence of PE Resolved CKD 3 Creatinine stable Avoid nephrotoxic agents Monitor BMP-creatinine remains normal Hyponatremia Sodium 130 on admission Continue monitor BMP -sodium has gone up to 132 Cardiomyopathy Last ECHO showed reduced EF btw 35-40% Continue metoprolol 25mg BID Stable Thrombocytosis Platelet on admission 913 Platelet improves to 646 today Continue aspirin Monitor CBC -remains at around upper 600s He was advised to keep appointment with oncologist as an outpatient Rheumatoid Arthritis Continue home dose Plaquenil (hydroxychloroquine) Hx Atrial fibrillation Rate controlled on NSR on metoprolol Stable DVT px on heparin subq Code Status Full Code Admission and Anticipated Discharge Date Admission Date: August 09, 2019 Subjective 08/11/2019 The patient was seen and examined in medical telemetry unit He was admitted with possible change in mental status and mild fever His relevant investigations have been unremarkable and denies any symptoms as of this morning No fever and chills, no increasing pain and no change in mental status Likely go home tomorrow Review of Systems Review of Systems: All systems reviewed and are unremarkable except as noted below. Musculoskeletal: Back pain is controlled with current dose of methadone and other narcotic Physical Exam Physical Exam: Lying in bed comfortably Constitutional: well developed and well nourished; no acute distress and not ill appearing Eyes: PERRL, conjunctivae normal, anicteric sclerae ENMT: external ear and nose normal, oropharynx normal Neck: trachea midline, no thyromegaly Respiratory: normal respiratory effort; no respiratory distress Auscultation: lungs clear to auscultation bilaterally Cardiovascular: Rate/Rhythm: regular rate and regular rhythm Heart Sounds: no murmur Gastrointestinal (Abdomen): Inspection/Auscultation: abdomen normal to inspection Percussion/Palpation: abdomen soft; abdomen nontender Musculoskeletal: No acute arthritis in any joints Neurologic: moves all extremities; no focal motor deficits Alert, awake and oriented x3 Results & Data Results & Data ([facility]) Vital Signs (Past 12 Hours) Vital Signs Temp Pulse Resp BP Pulse Ox 08/11/19 07:13 36.5 C 82 18 143/86 H 93 Laboratory Results Short CBC 08/11/19 Range/Units 05:32 WBC 14.82 H (4.8-10.8) K/uL Hgb 8.6 L (14.0-18.0) g/dL Hct 27.6 L (42-52) % Plt Count 687 H (130-400) K/uL BMP 08/11/19 05:32 Sodium 132 L Potassium 3.9 Chloride 101 Carbon Dioxide 30 BUN 12 Creatinine 0.94 Glucose 86 Calcium 8.9 Medications Administered Current Inpatient Medications Acetaminophen (Tylenol) 325 mg PO Q6H PRN PRN Reason: pain/fever Stop: 09/08/19 15:00 Aspirin (Ecotrin Ectab) 81 mg PO DAILY [facility] Stop: 09/09/19 08:59 Last Admin: 08/11/19 08:08 Dose: 81 mg Documented by: Docusate Sodium (Colace) 100 mg PO BID [facility] Stop: 09/08/19 20:59 Last Admin: 08/11/19 08:08 Dose: 100 mg Documented by: Fentanyl (Duragesic) 50 mcg TD Q72H [facility] Stop: 08/25/19 08:59 Last Admin: 08/11/19 08:07 Dose: 50 mcg Documented by: Gabapentin (Neurontin) 300 mg PO TID [facility] Stop: 09/08/19 20:59 Last Admin: 08/11/19 08:08 Dose: 300 mg Documented by: Heparin Sodium (Porcine) (Heparin Sodium (Porcine)) 5,000 units SQ Q12 [facility] Stop: 09/08/19 20:59 Last Admin: 08/11/19 08:07 Dose: 5,000 units Documented by: Heparin Sodium (Porcine) (Heparin Sod 100 Unit/Ml Flush) 5 ml FLUSH PRN PRN PRN Reason: Flush Stop: 09/08/19 23:44 Last Admin: 08/11/19 09:38 Dose: 5 ml Documented by: Daptomycin 550 mg/ Syringe 11 mls @ 5.25 mls/min IV Q24H [facility]; Protocol Stop: 08/23/19 15:59 Last Admin: 08/10/19 16:14 Dose: 5.25 mls/min Documented by: Ioversol (Optiray 320 125ml) 119 ml IV ONCE PRN PRN Reason: Interaction Checking Stop: 08/13/19 14:29 Last Admin: 08/09/19 14:31 Dose: 119 ml Documented by: Methadone HCl (Dolophine) 5 mg PO BID [facility] Stop: 08/23/19 20:59 Last Admin: 08/11/19 08:07 Dose: 5 mg Documented by: Metoprolol Succinate (Toprol Xl) 50 mg PO BID [facility] Stop: 09/08/19 20:59 Last Admin: 08/11/19 08:08 Dose: 50 mg Documented by: Miscellaneous (Fentanyl Patch Remove & Waste) 1 ea N/A Q3D@0859 [facility] Stop: 09/10/19 08:58 Last Admin: 08/11/19 08:08 Dose: 1 ea Documented by: Miscellaneous (Fentanyl Patch Check Placement) 1 ea N/A QS [facility] Stop: 09/08/19 15:59 Last Admin: 08/11/19 08:08 Dose: 1 ea Documented by: Miscellaneous Information (Consult) 1 ea N/A UD PRN PRN Reason: Consult Stop: 09/08/19 15:00 Morphine Sulfate (Morphine Sulfate Ir) 15 mg PO Q6H PRN PRN Reason: Severe Pain Stop: 08/23/19 14:29 Last Admin: 08/11/19 10:18 Dose: 15 mg Documented by: Naloxone HCl (Narcan) 0.4 mg IV DAILY PRN PRN Reason: Drowsiness Stop: 09/08/19 15:44 Ondansetron HCl (Zofran) 4 mg IV Q6H PRN PRN Reason: Nausea And Vomiting Stop: 09/08/19 14:59 Polyethylene Glycol (Miralax Powder Packet) 17 gm PO DAILY PRN PRN Reason: constipation Stop: 09/08/19 14:24 Sennosides (Senokot) 8.6 mg PO [facility] Stop: 09/09/19 08:59 Last Admin: 08/11/19 08:08 Dose: 8.6 mg Documented by:
[2019-08-11] MEDS: DAPTOmycin 550 MG in SYRINGE 0 ML IV SCH (15:39)
[2019-08-11] MEDS ORDERED: LORazepam 0.5 MG TAB PO STA (21:10)
[2019-08-11 23:08] VITALS: O2SAT 94
[2019-08-12] MEDS: CHECK FENTANYL PATCH PLACEMENT SCH ×2 (00:44→08:02)
[2019-08-12] MEDS: HEPARIN 100 UNIT/ML 5ML FLUSH FLUSH PRN ×2 (05:25→11:51)
[2019-08-12 06:12] LABS: Basophils # (auto) 0.08 K/uL (0-0.2); Basophils % (auto) 0.5 %; Eosinophils # (auto) 0.68 K/uL (0-0.5); Eosinophils % (auto) 4.6 %; Hematocrit (blood only) 28.4 % (42-52); Immature Granulocytes # (auto) 0.22 K/uL (0.00-0.02); Immature Granulocytes % (auto) 1.5 %; Lymphocytes # (auto) 0.93 K/uL (1.2-3.4); Lymphocytes % (auto) 6.3 %; Mean Corpuscular Hemoglobin 26.8 pg (25-34); Mean Corpuscular Hgb Conc 31.7 g/dL (32-36); Mean Corpuscular Volume 84.5 fL (80-100); Mean Platelet Volume 8.6 fL (7.4-10.4); Monocytes # (auto) 1.54 K/uL (0.11-0.59); Monocytes % (auto) 10.4 %; Neutrophils # (auto) 11.42 K/uL (1.4-6.5); Neutrophils % (auto) 76.7 %; Platelet Count 718 K/uL (130-400); RDW Coefficient of Variation 16.2 % (11.5-14.5); RDW Standard Deviation 49.6 fL (36.4-46.3); Red Blood Count 3.36 M/uL (4.7-6.1); White Blood Count 14.87 K/uL (4.8-10.8)
[2019-08-12 06:47] LABS: BUN Creatinine Ratio 15.1 (10-20); Calcium 9.2 mg/dl (8.5-10.1); Creatinine Clr Calc Pharmacy 130.3 ml/min; Est GFR (African American) 109.1; Est GFR (Non-African American) 94.1; Potassium 4.3 mmol/L (3.5-5.1)
[2019-08-12 07:13] VITALS: BP 142/98; PULSE 60; TEMP 99
[2019-08-12] MEDS: SENNA 8.6 MG TAB PO SCH ×2 (08:00→08:13)
[2019-08-12] MEDS: METOPROLOL SUCC 50MG EXT REL TAB PO SCH (08:01)
[2019-08-12] MEDS: METHADONE HCL 5 MG TAB PO SCH (08:01)
[2019-08-12] MEDS: DOCUSATE SODIUM 100 MG CAP PO SCH (08:01)
[2019-08-12] MEDS: GABAPENTIN 300 MG CAP PO SCH (08:01)
[2019-08-12] MEDS: ASPIRIN 81 MG ECTAB PO SCH (08:01)
[2019-08-12] MEDS: HEPARIN SOD 5,000 UNIT/0.5 ML VIAL SQ SCH (08:02)
--- NOTE | 2019-08-12 10:48 | Hospitalist Progress Note ---
Date of Service August 12, 2019 Assessment & Plan (1) Fever, unknown origin: Was brought to the ER after noticed her to be confused WBC on admission 20K which improved subsequently CXR showed no new focal lung consolidations to suggest pneumonia. UA negative for UTI CTA chest showed no evidence of pulmonary embolus in the main, lobar, or segmental pulmonary arteries and no airspace consolidation typical for pneumonia. nfluenza negative. Screening test for COVID-19 also performed and is negative Received IV cefepime in the ER and that are changed to intravenous Zosyn Has been getting IV Dapto infusion as an outpatient to be completed by 08/11/2019. Blood cx pending -negative for 24 hours We will stop Zosyn today and observe him overnight No more fever and/or chills and remains hemodynamically stable White counts remains to be around 14,000 Will be sent home this afternoon (2) Metastatic adenocarcinoma to bone: (1) Malignant neoplasm of gastroesophageal junction: (2) Pathologic compression fracture of lumbar vertebra: (3) Metastatic cancer to spine: (4) Intractable back pain: CT showed evidence of multifocal pulmonary, hepatic, and osseous metastatic disease. Pain has been stable with the methadone 5 mg twice a day to treat for cancer associated pain as well as Fentanyl patch for generalized pain control and Morphine for breakthrough pain Follow up with [facility] [place]. Blank Elevated alkaline phosphate could be secondary to metastatic disease Remains stable -advised to keep an appointment with the outpatient oncologist CECILIA Hypoxia Noted once by the EMS at home but never noted afterwards and has been saturating well on room air CTA showed no evidence of PE Resolved CKD 3 Creatinine stable Avoid nephrotoxic agents Monitor BMP-creatinine remains normal Hyponatremia Sodium 130 on admission Continue monitor BMP -sodium has gone up to 132 Cardiomyopathy Last ECHO showed reduced EF btw 35-40% Continue metoprolol 25mg BID Stable Thrombocytosis Platelet on admission 913 Platelet improves to 646 today Continue aspirin Monitor CBC -remains at around upper 600s He was advised to keep appointment with oncologist as an outpatient Rheumatoid Arthritis Continue home dose Plaquenil (hydroxychloroquine) Hx Atrial fibrillation Rate controlled on NSR on metoprolol Stable DVT px on heparin subq Code Status Full Code Admission and Anticipated Discharge Date Admission Date: August 09, 2019 Subjective 08/11/2019 The patient was seen and examined in medical telemetry unit He was admitted with possible change in mental status and mild fever His relevant investigations have been unremarkable and denies any symptoms as of this morning No fever and chills, no increasing pain and no change in mental status Likely go home tomorrow 08/12/2019 The patient was seen and examined in medical telemetry unit He wants to go home and he denies any symptoms whatsoever Denies any more fever and/or chills and the back pain is controlled Review of Systems Review of Systems: All systems reviewed and are unremarkable except as noted below. Musculoskeletal: Back pain is controlled with current dose of methadone and other narcotic Physical Exam Physical Exam: Lying in bed comfortably Constitutional: well developed, well nourished and + obese; no acute distress and not ill appearing Eyes: PERRL, conjunctivae normal, anicteric sclerae ENMT: external ear and nose normal, oropharynx normal Neck: trachea midline, no thyromegaly Respiratory: normal respiratory effort; no respiratory distress Auscultation: lungs clear to auscultation bilaterally Cardiovascular: Rate/Rhythm: regular rate and regular rhythm Heart Sounds: no murmur Gastrointestinal (Abdomen): Inspection/Auscultation: abdomen normal to ins pection Percussion/Palpation: abdomen soft; abdomen nontender Musculoskeletal: No acute arthritis involving any joints Neurologic: moves all extremities; no focal motor deficits Alert, awake and oriented x3. Lymphatic: no cervical or axillary lymphadenopathy Results & Data Results & Data ([facility]) Vital Signs (Past 12 Hours) Vital Signs Temp Pulse Resp BP Pulse Ox 08/12/19 07:12 37.2 C 60 18 142/98 H 94 08/12/19 01:36 150/90 H 08/11/19 23:08 37.3 C 84 20 175/94 H 94 Laboratory Results Short CBC 08/12/19 Range/Units 05:25 WBC 14.87 H (4.8-10.8) K/uL Hgb 9.0 L (14.0-18.0) g/dL Hct 28.4 L (42-52) % Plt Count 718 H (130-400) K/uL BMP 08/12/19 05:25 Sodium 132 L Potassium 4.3 Chloride 96 L Carbon Dioxide 30 BUN 12 Creatinine 0.82 Glucose 75 Calcium 9.2 Medications Administered Current Inpatient Medications Acetaminophen (Tylenol) 325 mg PO Q6H PRN PRN Reason: pain/fever Stop: 09/08/19 15:00 Aspirin (Ecotrin Ectab) 81 mg PO DAILY [facility] Stop: 09/09/19 08:59 Last Admin: 08/12/19 08:01 Dose: 81 mg Documented by: Docusate Sodium (Colace) 100 mg PO BID [facility] Stop: 09/08/19 20:59 Last Admin: 08/12/19 08:01 Dose: 100 mg Documented by: Fentanyl (Duragesic) 50 mcg TD Q72H [facility] Stop: 08/25/19 08:59 Last Admin: 08/11/19 08:07 Dose: 50 mcg Documented by: Gabapentin (Neurontin) 300 mg PO TID [facility] Stop: 09/08/19 20:59 Last Admin: 08/12/19 08:01 Dose: 300 mg Documented by: Heparin Sodium (Porcine) (Heparin Sodium (Porcine)) 5,000 units SQ Q12 [facility] Stop: 09/08/19 20:59 Last Admin: 08/12/19 08:02 Dose: 5,000 units Documented by: Heparin Sodium (Porcine) (Heparin Sod 100 Unit/Ml Flush) 5 ml FLUSH PRN PRN PRN Reason: Flush Stop: 09/08/19 23:44 Last Admin: 08/12/19 05:25 Dose: 5 ml Documented by: Ioversol (Optiray 320 125ml) 119 ml IV ONCE PRN PRN Reason: Interaction Checking Stop: 08/13/19 14:29 Last Admin: 08/09/19 14:31 Dose: 119 ml Documented by: Methadone HCl (Dolophine) 5 mg PO BID [facility] Stop: 08/23/19 20:59 Last Admin: 08/12/19 08:01 Dose: 5 mg Documented by: Metoprolol Succinate (Toprol Xl) 50 mg PO BID [facility] Stop: 09/08/19 20:59 Last Admin: 08/12/19 08:01 Dose: 50 mg Documented by: Miscellaneous (Fentanyl Patch Remove & Waste) 1 ea N/A Q3D@0859 [facility] Stop: 09/10/19 08:58 Last Admin: 08/11/19 08:08 Dose: 1 ea Documented by: Miscellaneous (Fentanyl Patch Check Placement) 1 ea N/A QS [facility] Stop: 09/08/19 15:59 Last Admin: 08/12/19 08:02 Dose: 1 ea Documented by: Morphine Sulfate (Morphine Sulfate Ir) 15 mg PO Q6H PRN PRN Reason: Severe Pain Stop: 08/23/19 14:29 Last Admin: 08/11/19 23:35 Dose: 15 mg Documented by: Naloxone HCl (Narcan) 0.4 mg IV DAILY PRN PRN Reason: Drowsiness Stop: 09/08/19 15:44 Ondansetron HCl (Zofran) 4 mg IV Q6H PRN PRN Reason: Nausea And Vomiting Stop: 09/08/19 14:59 Polyethylene Glycol (Miralax Powder Packet) 17 gm PO DAILY PRN PRN Reason: constipation Stop: 09/08/19 14:24 Sennosides (Senokot) [facility] [place]: 09/09/19 08:59 Last Admin: 08/12/19 08:13 Dose: Not Given Documented by:
[2019-08-12] MEDS: MoRPHine SULFATE IR 15 MG TAB (IMMEDIATE RELEASE) PO PRN (12:02)
--- NOTE | 2019-08-12 16:41 | Discharge Summary ---
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 History obtained from pt's secondary to pt's current altered mental status. It is reported that at home pt with fever 102.8F yesterday and 103F 2 days ago. Yesterday was able to give Tylenol with limited relief of fever. Also noted confusion and agitation x 2 days. Has been difficult to get pt to take his medications, including his pain medications for back pain from spine mets. She did apply new fentanyl patch yesterday. Pt had one episode of vomiting yesterday. Denies pt c/o abdominal pain. It is reported pt with intermittent cough that is sometimes productive white and no recent change in this cough. No noted SOB or wheezing. Pt has not yet started chemo. Last radiation to spine 2-3 weeks ago and reports after pt had diarrhea for 5-7 days. She was giving pt probiotics and diarrhea has since resolved and pt having solid BM's. states pt urine has gotten darker over past 24 hours. Pt lives at home. Denies ill contacts or known COVID exposure. Denies recent travel. Denies noted syncope or LOC, noted rashes or edema. Recent hospitalization in 06/15/2019-06/18/2019 for intractable back pain secondary to bone mets and RLE cellulitis. Admission Exam Per Admitting Provider Constitutional: cooperative and comfortable Eyes: PERRL, conjunctivae normal, anicteric sclerae EOM intact bilaterally ENMT: external ear and nose normal, oropharynx normal Neck: normal visual inspection Respiratory: normal respiratory effort, lungs clear to auscultation normal respiratory effort Cardiovascular: Rate/Rhythm: regular rate and regular rhythm Gastrointestinal (Abdomen): normal bowel sounds, soft, nontender, no hepatosplenomegaly Musculoskeletal: Head/Neck/Chest: normocephalic Skin: No swelling of lower extremities but there appears to be chronic skin discoloration of the skin of lower extremities. No calf tenderness Neurologic: PERRL, EOMI, accommodation nl, no face palsy, no dysarthria Psychiatric: A+Ox3, euthymic affect Principal Diagnosis Metastatic adenocarcinoma of GE junction, transient fever without any evidence of infection, cardiomyopathy with EF of 35 to 40%, thrombocytosis, rheumatoid arthritis, history of atrial fibrillation Discharge Exam Constitutional well developed, well nourished and + obese; no acute distress and not ill appearing Eyes PERRL, conjunctivae normal, anicteric sclerae ENMT external ear and nose normal, oropharynx normal Neck trachea midline, no thyromegaly Respiratory normal respiratory effort; no respiratory distress Auscultation: lungs clear to auscultation bilaterally Cardiovascular Rate/Rhythm: regular rate and regular rhythm Heart Sounds: no murmur Gastrointestinal (Abdomen) Inspection/Auscultation: abdomen normal to inspection Percussion/Palpation: abdomen soft; abdomen nontender Neurologic moves all extremities; no focal motor deficits Lymphatic no cervical or axillary lymphadenopathy Discharge Data Allergies Allergy/AdvReac Type Severity Reaction Status Date / Time No Known Allergies Allergy Verified 08/09/19 11:33 Consultations 08/09/19 12:05 ED Decision to Admit Stat 08/09/19 15:01 Consult Case Management - Discharge Planning Routine Ordered Studies 08/09/19 14:03 CT angio chest PE protocol Stat Hospital Course (1) Fever, unknown origin: Was brought to the ER after noticed her to be confused WBC on admission 20K which improved subsequently CXR showed no new focal lung consolidations to suggest pneumonia. UA negative for UTI CTA chest showed no evidence of pulmonary embolus in the main, lobar, or segmental pulmonary arteries and no airspace consolidation typical for pneumonia. nfluenza negative. Screening test for COVID-19 also performed and is negative Received IV cefepime in the ER and that are changed to intravenous Zosyn Has been getting IV Dapto infusion as an outpatient to be completed by 08/11/2019. Blood cx pending -negative for 24 hours We will stop Zosyn today and observe him overnight No more fever and/or chills and remains hemodynamically stable White counts remains to be around 14,000 Will be sent home this afternoon (2) Metastatic adenocarcinoma to bone: (1) Malignant neoplasm of gastroesophageal junction: (2) Pathologic compression fracture of lumbar vertebra: (3) Metastatic cancer to spine: (4) Intractable back pain: CT showed evidence of multifocal pulmonary, hepatic, and osseous metastatic disease. Pain has been stable with the methadone 5 mg twice a day to treat for cancer associated pain as well as Fentanyl patch for generalized pain control and Morphine for breakthrough pain Follow up with [facility] [place]. Blank Elevated alkaline phosphate could be secondary to metastatic disease Remains stable -advised to keep an appointment with the outpatient oncologist CECILIA Hypoxia Noted once by the EMS at home but never noted afterwards and has been saturating well on room air CTA showed no evidence of PE Resolved CKD 3 Creatinine stable Avoid nephrotoxic agents Monitor BMP-creatinine remains normal Hyponatremia Sodium 130 on admission Continue monitor BMP -sodium has gone up to 132 Cardiomyopathy Last ECHO showed reduced EF btw 35-40% Continue metoprolol 25mg BID Stable Thrombocytosis Platelet on admission 913 Platelet improves to 646 today Continue aspirin Monitor CBC -remains at around upper 600s He was advised to keep appointment with oncologist as an outpatient Rheumatoid Arthritis Continue home dose Plaquenil (hydroxychloroquine) Hx Atrial fibrillation Rate controlled on NSR on metoprolol Stable DVT px on heparin subq Code Status Full Code Total Time Total Time Spent Total Time Spent (In Minutes): 35 minutes Total Time Includes: Examination of the Patient, Discharge Planning, Medication Reconciliation and Communication With Other Providers Discharge Plan Discharge Items Patient Disposition: Home - Home Health Services Reason For Visit: FEVER Discharge Diagnosis: Metastatic adenocarcinoma of GE junction, transient fever without any evidence of infection, cardiomyopathy with EF of 35 to 40%, thrombocytosis, rheumatoid arthritis, history of atrial fibrillation Condition on Discharge: Good Activity: Resume your previous activity Non-emergency contact: Primary Care Provider Call non-emergency contact if: you have any medication questions Follow-up/Referrals: Grzegorz Jaquez DO [Primary Care Provider] - 08/18/19 10:40 am Diet: Regular and Low Sodium (2gm) Addtl Attending Provider Instructions: Please take precaution to avoid falls Make an appointment with your oncologist as soon as possible for follow-up Addtl Manager Personnel Selection Provider Instructions: You have a prescription for a hospital bed at home, but are not ready to coordinate the delivery yet. We discussed [employer] medical [employer] and wanted to provide you with information for [facility]. They are located in [place], [place]. The phone # is [phone]. Pending Studies at Discharge: No Stand-Alone Forms: [employer], Smoking Cessation Medications and DC Order Prescriptions: New aspirin 81 mg Tablet,Delayed Release (Dr/Ec) 81 mg PO DAILY Qty: 30 RF: 0 Continued gabapentin 300 mg capsule 600 mg PO UD RF: 0 hydroxychloroquine 200 mg tablet 400 mg PO DAILY@1999 RF: 0 polyethylene glycol 3350 [Miralax] 17 gram Powder In Packet 17 g PO DAILY PRN (Reason: constipation) Qty: 30 RF: 0 methadone 5 mg tablet 5 mg PO BID RF: 0 naloxone 4 mg/actuation spray,non-aerosol 4 mg intranasal DIRECTED PRN (Reason: Opiate Reversal) RF: 0 Metamucil 3.4 gram/5.4 gram Powder 1 tbsp PO DAILY PRN (Reason: Diarrhea) RF: 0 acetaminophen [Tylenol Extra Strength] 500 mg Tablet 1,000 mg PO Q6H RF: 0 gabapentin 300 mg capsule 900 mg PO DAILY@1999 RF: 0 metoprolol succinate 50 mg Tablet Extended Release 24 Hr 50 mg PO BID 30 Days Qty: 60 RF: 0 Lactinex 1 million cell tablet,chewable 1 tab PO TID Qty: 30 RF: 0 fentanyl 50 mcg/hr patch 72 hour 1 patch TD Q72H 10 Days Qty: 3 RF: 0 morphine 15 mg tablet 15 mg PO Q6H PRN (Reason: Pain) 3 Days Qty: 10 RF: 0 Discharge Orders: Discharge Order (Routine); Ordered 08/12/19 Ordered By: Yimi Mederos Admission Data Admit Date/Time: 08/09/19 13:48 Attending Provider: Yimi Mederos Admit Provider: Mau Parnell Primary Care Provider: Grzegorz Jaquez Other Providers: Mau Parnell ; [facility] ; Libby Candelario Other Interventions: Discharge Summary Assessment (RN) Last Done: 08/12/19 11:32 DC Date/Time DO NOT enter until pt leaves facility: 08/12/19 13:15
== END 2019-08-12 13:15 | DRG 375 ==
LOC: ED 10:42 → 2N 13:48 → SUATTDRO 13:48 → 2N 14:31
DX: I42.9 Cardiomyopathy, unspecified; C78.02 Secondary malignant neoplasm of left lung; I12.9 Hypertensive chronic kidney disease with stage 1 through stage 4 chronic kidney disease, or unspecified chronic kidney disease; R50.9 Fever, unspecified; C78.7 Secondary malignant neoplasm of liver and intrahepatic bile duct; C16.0 Malignant neoplasm of cardia; D72.829 Elevated white blood cell count, unspecified; R09.02 Hypoxemia; G89.3 Neoplasm related pain (acute) (chronic); Z79.899 Other long term (current) drug therapy; Z79.891 Long term (current) use of opiate analgesic; Z84.2 Family history of other diseases of the genitourinary system; E87.1 Hypo-osmolality and hyponatremia; Z86.79 Personal history of other diseases of the circulatory system; C79.51 Secondary malignant neoplasm of bone; M06.9 Rheumatoid arthritis, unspecified; M84.58XA Pathological fracture in neoplastic disease, other specified site, initial encounter for fracture; N18.3 Chronic kidney disease, stage 3 (moderate); Z74.01 Bed confinement status; Z79.1 Long term (current) use of non-steroidal anti-inflammatories (NSAID); D47.3 Essential (hemorrhagic) thrombocythemia

== ENCOUNTER 2019-08-16 20:32 | Inpatient (IN) ==
[2019-08-16] MEDS ORDERED: SODIUM CHLORIDE 0.9% 500 ML IV ONE (20:57)
[2019-08-16] MEDS ORDERED: PIPERACILLIN/TAZOBACTAM 4.5 GM/120 ML BAG IV ONE (20:59)
[2019-08-16] MEDS ORDERED: DAPTOMYCIN CONSULT ACTIVE PRN (20:59)
[2019-08-16] MEDS ORDERED: DAPTOmycin 525 MG in SYRINGE 0 ML IV ONE (20:59)
[2019-08-16] MEDS ORDERED: PIPERACILL/TAZOBAC CONSULT ACTIVE PRN (20:59)
--- NOTE | 2019-08-16 21:19 | Emergency Department Note ---
History of Present Illness General Chief complaint: Illness Stated complaint: CONFUSION, FEVER Time Seen by Provider: 08/16/19 20:44 Source: patient Mode of arrival: ambulatory Limitations: no limitations History of Present Illness Maximum Pain Intensity: 8 This patient has a complex medical history including recent hospitalization for sepsis, comes in after having a fever and weakness and some confusion at home. On my exam, he does not appear to be confused and does answer questions appropriately. he denies any acute complaints. He does have a port in the right side of his chest which he denies any issues with he has had a minimal cough. He denies any headache neck pain or stiffness. No sore throat or oropharyngeal lesions. Denies any shortness of breath or abdominal pain. Denies dysuria or hematuria. No redness or warmth of his legs. He has had cellulitis before but denies that he has had any recent cellulitis. Last time he was hospitalized in the hospital recently he did have coagulase-negative staph in his blood as well as enterococcus faecalis in his urine which were both sensitive to daptomycin. He did apparently complete the antibiotic course while in the hospital. He does not appear to be in antibiotics at present. Home Medications Home Medications Medication Instructions Recorded Confirmed Type gabapentin 600 mg PO .AM&NOON 06/14/19 08/16/19 History hydroxychloroquine 400 mg PO DAILY@199906/14/19 08/16/19 History polyethylene glycol 3350 [Miralax] 17 g PO DAILY PRN #30 ea 06/18/19 08/16/19 Rx naloxone 4 mg INTRANASAL UD PRN 06/28/19 08/16/19 History Metamucil 1 tbsp PO DAILY PRN 06/30/19 08/16/19 History acetaminophen [Tylenol Extra 1,000 mg PO Q6H 07/28/19 08/16/19 History Strength] gabapentin 900 mg PO DAILY@199907/28/19 08/16/19 History Lactinex 1 tab PO TID #30 tab 08/03/19 08/16/19 Rx fentanyl 1 patch TD Q72H 10 Days #3 ea 08/03/19 08/16/19 Rx metoprolol succinate 50 mg PO BID 30 Days #60 tab 08/03/19 08/16/19 Rx morphine 15 mg PO Q6H PRN 3 Days #10 tab 08/03/19 08/16/19 Rx methadone 5 mg PO BID 08/09/19 08/16/19 History aspirin 81 mg PO DAILY #30 tab 08/12/19 08/16/19 Rx Allergies Allergy/AdvReac Type Severity Reaction Status Date / Time No Known Allergies Allergy Verified 08/09/19 11:33 Past Med/Surg History Medical History Acute hypoxemic respiratory failure 06/2018 Afib Recent confinement June 2018 for new diagnosis of heart failure. Paroxysmal A. fib noted during confinement. Patient discharged on Eliquis for anticoagulation.> PT REPORTS NO LONGER ON ELIQUIS> THIS WAS ISOLATED INCIDENT Eliquis discontinued a few months later by ekg monitor tech after outpatient telemetry did not show recurrent AF. Anxiety Atypical chest pain Cancer associated pain (Inactive) Cardiomyopathy Severe LV dysfunction with EF of 30% found on admission June 2018. TTE 11/02/2018 showed resolution of cardiomyopathy with EF greater than 70%. Chronic anemia CKD (chronic kidney disease), stage III Constipation Elevated troponin 06/2018. Cardiac catheterization performed during admission showed severe LV dysfunction with EF of 30% but large-caliber coronaries with minimal irr egularities at most. Elevation felt secondary to demand ischemia from cardiomyopathy/fluid overload. GE junction carcinoma GERD (gastroesophageal reflux disease) HX Hypertension Malignant neoplasm of gastroesophageal junction REASON FOR PROCEDURE > RADIATION AT PRESENT Metastatic cancer to spine (Inactive) Nonischemic cardiomyopathy Paroxysmal atrial fibrillation Pathologic compression fracture of lumbar vertebra L5 with retropulsion > W/C AT PRESENT Pneumonia 06/2018 Rheumatoid arthritis Surgical History History of cardiac cath JUNE 2018 > FOR C.P/SOB > [facility] > NO STENTS History of tooth extraction Hx of colonoscopy Family History Grandfather (Maternal) Diabetes Social History Preferred Language: Ukrainian Communication Ability: Effective 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: No Beliefs That Will Affect Care: None marital status: Current Living Situation: Spouse Feels Safe at Home: Yes Smoking Status: Never smoker Second Hand Exposure: No ; Hx Alcohol Use: Yes Alcohol type: beer, wine and hard liquor Hx Substance Use: No Review of Systems A total of 10 systems reviewed and were otherwise negative Physical Exam Vital Signs Vital Signs - 24 hr 08/16/19 20:36 08/16/19 20:39 08/16/19 20:44 Temperature 38.5 C H Temperature Source Oral Pulse Rate 94 H 93 H 94 H Pulse Rate [Bilateral Apical] Pulse Rate from SpO2 Sensor 94 H 95 H Respiratory Rate 25 H 20 26 H Respiratory Effort / Characteristics Respiratory Depth Blood Pressure 158/91 H 158/91 H Blood Pressure [Left Arm] Blood Pressure Mean 114 113 Blood Pressure Mean [Left Arm] Pulse Oximetry 93 95 92 Oxygen Delivery Method Room Air Sepsis Recent Fever Within 48 Hours Yes Sepsis New/Unexplained Change in Mental Status No Sepsis Action Taken by Nursing No Action Required 08/16/19 20:50 08/16/19 21:00 08/16/19 21:10 Temperature Temperature Source Pulse Rate 96 H 92 H 93 H Pulse Rate [Bilateral Apical] Pulse Rate from SpO2 Sensor 96 H 92 H 93 H Respiratory Rate 21 19 24 Respiratory Effort / Characteristics Respiratory Depth Blood Pressure Blood Pressure [Left Arm] Blood Pressure Mean Blood Pressure Mean [Left Arm] Pulse Oximetry 95 94 91 Oxygen Delivery Method Sepsis Recent Fever Within 48 Hours Sepsis New/Unexplained Change in Mental Status Sepsis Action Taken by Nursing 08/16/19 21:18 08/16/19 21:20 08/16/19 21:23 Temperature Temperature Source Pulse Rate 90 91 H Pulse Rate [Bilateral Apical] Pulse Rate from SpO2 Sensor 90 91 H Respiratory Rate 20 22 Respiratory Effort / Characteristics Respiratory Depth Blood Pressure 149/95 H Blood Pressure [Left Arm] Blood Pressure Mean 105 Blood Pressure Mean [Left Arm] Pulse Oximetry 95 91 92 Oxygen Delivery Method Room Air Sepsis Recent Fever Within 48 Hours Sepsis New/Unexplained Change in Mental Status Sepsis Action Taken by Nursing 08/16/19 21:30 08/16/19 21:31 08/16/19 21:40 Temperature Temperature Source Pulse Rate 90 91 H 90 Pulse Rate [Bilateral Apical] Pulse Rate from SpO2 Sensor 90 90 90 Respiratory Rate 18 22 21 Respiratory Effort / Characteristics Respiratory Depth Blood Pressure 156/98 H Blood Pressure [Left Arm] Blood Pressure Mean 104 Blood Pressure Mean [Left Arm] Pulse Oximetry 96 97 97 Oxygen Delivery Method Sepsis Recent Fever Within 48 Hours Sepsis New/Unexplained Change in Mental Status Sepsis Action Taken by Nursing 08/16/19 21:50 08/16/19 22:00 08/16/19 22:10 Temperature Temperature Source Pulse Rate 95 H 102 H 96 H Pulse Rate [Bilateral Apical] Pulse Rate from SpO2 Sensor 95 H 100 H 96 H Respiratory Rate 20 23 26 H Respiratory Effort / Characteristics Respiratory Depth Blood Pressure 150/117 H Blood Pressure [Left Arm] Blood Pressure Mean 141 Blood Pressure Mean [Left Arm] Pulse Oximetry 97 96 97 Oxygen Delivery Method Sepsis Recent Fever Within 48 Hours Sepsis New/Unexplained Change in Mental Status Sepsis Action Taken by Nursing 08/16/19 23:14 Temperature Temperature Source Pulse Rate Pulse Rate [Bilateral Apical] 90 Pulse Rate from SpO2 Sensor Respiratory Rate 20 Respiratory Effort / Characteristics Non-Labored Respiratory Depth Normal Blood Pressure Blood Pressure [Left Arm] 107/86 Blood Pressure Mean Blood Pressure Mean [Left Arm] 93 Pulse Oximetry 96 Oxygen Delivery Method Room Air Sepsis Recent Fever Within 48 Hours Sepsis New/Unexplained Change in Mental Status Sepsis Action Taken by Nursing General: Well developed well nourished in no acute distress, breathing comfortably on room air. Normal speech HEENT: Normal cephalic atraumatic. Pupils are equal round and reactive to light. Extraocular movements are intact. Oropharynx is pink with moist mucous membranes. No swelling of the mouth lips or tongue. Neck: Supple with a midline trachea. No meningeal signs or stiffness, no JVD or bruits. No Stridor. Negative Kernig and Babinski signs Chest: Clear to auscultation bilaterally. No wheezes or rhonchi. No increased work of breathing. A port in right chest Heart: Regular rate and rhythm without murmurs or gallops. Abdomen: Soft nontender, nondistended without rebound guarding or rigidity. Extremities: No cyanosis clubbing or edema. No calf tenderness or assymetry. No acute cellulitis. Chronic vascular changes of the skin bilaterally Spine/Back. Non tender to palpation. No CVA tenderness Skin: Good turgor without rashes. Neurologic exam: Cranial nerves two through 12 are intact. Motor and sensation are intact and symmetrical throughout. Course Administered Medications Discontinued Medications Sodium Chloride (Nss) 500 mls @ 999 mls/hr IV .Q31M ONE Stop: 08/16/19 21:27 Last Infusion: 08/16/19 22:15 Dose: 0 mls/hr Documented by: [id number] Admin: 08/16/19 21:35 Dose: 999 mls/hr Documented by: [id number] Piperacillin Sod/Tazobactam Sod (Zosyn) 4.5 gm in 120 mls @ 240 mls/hr IV NOW ONE Stop: 08/16/19 21:28 Last Infusion: 08/16/19 22:15 Dose: 0 mls/hr Documented by: [id number] Admin: 08/16/19 21:35 Dose: 240 mls/hr Documented by: [id number] Daptomycin 525 mg/ Syringe 10.5 mls @ 5.25 mls/min IV NOW ONE; Protocol Stop: 08/16/19 21:00 Last Admin: 08/16/19 21:35 Dose: 5.25 mls/min Documented by: [id number] Ondansetron HCl (Zofran) 4 mg IV NOW STA Stop: 08/16/19 22:05 Last Admin: 08/16/19 22:06 Dose: 4 mg Documented by: [id number] Ondansetron HCl (Zofran) Confirm Administered Dose 4 mg .ROUTE .STK-MED ONE Stop: 08/16/19 22:06 Last Admin: 08/16/19 22:07 Dose: Not Given Documented by: [id number] Critical Care Time Critical Care Time: Yes Total Critical Care Time: 35 I have personally spent greater than 35 minutes of critical care time in the direct management of this patient. This includes bedside care, interpretation of diagnostic studies, and testing, discussion with consultants, patient, and family members, and other required patient management activities. This 35 minutes is in excess of all separately billable procedures. Medical Decision Making Differential Diagnosis Differential diagnosis includes but is not limited to: Sepsis, UTI, cardiac disease, pneumonia, viral illness, electrolyte or metabolic abnormality, cancer complication Medical Records Attestation: I reviewed the patient's medical records. Home Medications Current Medication List: was personally reviewed by me Laboratory Data Attestation: I reviewed the patient's lab results. Result diagrams: 08/16/19 21:20 08/16/19 21:20 Lab Results 08/16/19 08/16/19 08/16/19 Range/Units 21:15 21:20 21:20 WBC 17.21 H (4.8-10.8) K/uL RBC 3.45 L (4.7-6.1) M/uL Hgb 9.2 L (14.0-18.0) g/dL Hct 28.9 L (42-52) % MCV 83.8 (80-100) fL MCH 26.7 (25-34) pg MCHC 31.8 L (32-36) g/dL RDW Std Deviation 49.7 H (36.4-46.3) fL RDW Coeff of Arlyn 16.2 H (11.5-14.5) % Plt Count 581 H (130-400) K/uL MPV 8.4 (7.4-10.4) fL Immature Gran % (Auto) 0.9 % Neut % (Auto) 82.5 % Lymph % (Auto) 7.6 % [place] % (Auto) 7.4 % Eos % (Auto) 1.2 % Baso % (Auto) 0.4 % Immature Gran # (Auto) 0.15 H (0.00-0.02) K/uL Neut # (Auto) 14.19 H (1.4-6.5) K/uL Lymph # (Auto) 1.31 (1.2-3.4) K/uL [place] # (Auto) 1.28 H (0.11-0.59) K/uL Eos # (Auto) 0.21 (0-0.5) K/uL Baso # (Auto) 0.07 (0-0.2) K/uL Stomatocytes 1+ PT 12.4 H (9.0-12.0) Seconds INR 1.2 H (0.9-1.1) APTT 32.5 H (21.0-31.0) Seconds PTT Ratio 1.2 Sodium (136-145) mmol/L Potassium (3.5-5.1) mmol/L Chloride (98-107) mmol/L Carbon Dioxide (21-32) mmol/L Anion Gap (3-11) BUN (7-18) mg/dl Creatinine (0.6-1.4) mg/dl Est Cr Clr Drug Dosing ml/min Est GFR ( Amer) Est GFR (Non-Af Amer) BUN/Creatinine Ratio (10-20) Glucose (70-99) mg/dl Lactate 1.4 (0.4-2.0) mmol/L Calcium (8.5-10.1) mg/dl Magnesium (1.8-2.4) mg/dl Total Bilirubin (0.2-1) mg/dl AST (15-37) U/L ALT (12-78) U/L Alkaline Phosphatase (45-117) U/L Troponin I (0-0.045) ng/ml Total Protein (6.4-8.2) gm/dl Albumin (3.4-5.0) gm/dl Globulin (2.5-4.0) gm/dl Albumin/Globulin Ratio (0.9-2) Procalcitonin (0-0.5) ng/ml Urine Color Urine Appearance (Clear) Urine pH (4.5-7.5) Ur Specific [place] (1.000-1.030) Urine Protein (Negative) Urine Glucose (UA) (Negative) Urine Ketones (Negative) Urine Blood (Negative) Urine Nitrite (Negative) Urine Bilirubin (Negative) Urine Urobilinogen (Negative) Ur Leukocyte Esterase (Negative) Urine WBC (Auto) (0-5) /hpf Urine RBC (Auto) (0-4) /hpf U Hyaline Cast (Auto) (0-5) /lpf U Epithel Cells (Auto) (0-5) /lpf Urine Bacteria (Auto) (Negative) 08/16/19 08/16/19 08/16/19 Range/Units 21:20 21:20 22:25 WBC (4.8-10.8) K/uL RBC (4.7-6.1) M/uL Hgb (14.0-18.0) g/dL Hct (42-52) % MCV (80-100) fL MCH (25-34) pg MCHC (32-36) g/dL RDW Std Deviation (36.4-46.3) fL RDW Coeff of Arlyn (11.5-14.5) % Plt Count (130-400) K/uL MPV (7.4-10.4) fL Immature Gran % (Auto) % Neut % (Auto) % Lymph % (Auto) % [place] % (Auto) % Eos % (Auto) % Baso % (Auto) % Immature Gran # (Auto) (0.00-0.02) K/uL Neut # (Auto) (1.4-6.5) K/uL Lymph # (Auto) (1.2-3.4) K/uL [place] # (Auto) (0.11-0.59) K/uL Eos # (Auto) (0-0.5) K/uL Baso # (Auto) (0-0.2) K/uL Stomatocytes PT (9.0-12.0) Seconds INR (0.9-1.1) APTT (21.0-31.0) Seconds PTT Ratio Sodium 126 L (136-145) mmol/L Potassium 4.3 (3.5-5.1) mmol/L Chloride 92 L (98-107) mmol/L Carbon Dioxide 28 (21-32) mmol/L Anion Gap 6.0 (3-11) BUN 12 (7-18) mg/dl Creatinine 0.94 (0.6-1.4) mg/dl Est Cr Clr Drug Dosing 115.2 ml/min Est GFR ( Amer) 99.6 Est GFR (Non-Af Amer) 85.9 BUN/Creatinine Ratio 13.0 (10-20) Glucose 87 (70-99) mg/dl Lactate (0.4-2.0) mmol/L Calcium 8.9 (8.5-10.1) mg/dl Magnesium 1.8 (1.8-2.4) mg/dl Total Bilirubin 0.6 (0.2-1) mg/dl AST 123 H (15-37) U/L ALT 32 (12-78) U/L Alkaline Phosphatase 771 H (45-117) U/L Troponin I < 0.015 (0-0.045) ng/ml Total Protein 6.8 (6.4-8.2) gm/dl Albumin 2.2 L (3.4-5.0) gm/dl Globulin 4.6 H (2.5-4.0) gm/dl Albumin/Globulin Ratio 0.5 L (0.9-2) Procalcitonin 0.43 (0-0.5) ng/ml Urine Color Yellow Urine Appearance Cloudy A (Clear) Urine pH 7.0 (4.5-7.5) Ur Specific [place] 1.013 (1.000-1.030) Urine Protein Trace H (Negative) Urine Glucose (UA) Negative (Negative) Urine Ketones Negative (Negative) Urine Blood Negative (Negative) Urine Nitrite Negative (Negative) Urine Bilirubin Negative (Negative) Urine Urobilinogen Negative (Negative) Ur Leukocyte Esterase Negative (Negative) Urine WBC (Auto) 1-5 (0-5) /hpf Urine RBC (Auto) 0-4 (0-4) /hpf U Hyaline Cast (Auto) 1-5 (0-5) /lpf U Epithel Cells (Auto) 20-30 H (0-5) /lpf Urine Bacteria (Auto) Negative (Negative) Imaging Data Radiologist's Impression: Chest xray-no acute infiltrate failure or pneumothorax seen. Please refer to radiology report ECG Data Attestation: I personally reviewed and interpreted this ECG as follows: Indication: + weakness Rate (beats per minute): 90 Rhythm: + normal sinus ECG Intervals/blocks: + Normal QRS and + Normal QT ECG [place]: + Normal ECG Findings: + Other (Low voltage) Comparison ECG Date: from (08/09/19) Change: no significant change Blood Pressure Blood Pressure Findings: Elevated blood pressure Blood Pressure Disposition: elevated BP felt to be situational MDM Narrative This patient comes in as scribed above he has a fever and weakness and possibly some confusion at home concerning for sepsis. His initial brought blood pressure was normotensive. We did access his a port and did a full sepsis work- up including blood cultures urinalysis and culture chest x-ray and multiple blood testing. He also had a EKG. He was gently hydrated with a 500 cc normal saline IV bolus as he does have underlying cardiomyopathy with an EF of 35 to 40% I did want to be judicious with his fluids initially. He was reassessed monica quently. He has nothing to she has meningitis or encephalitis. His white count is elevated at 17. He did receive IV Zosyn 4.5 g as well as IV daptomycin. He has had no significant electrolyte or metabolic abnormalities. He did get nauseated while he was here but denies any pain with this and there is no rash or shortness of breath anything to suggest allergic reaction. He says he does get nauseated from time to time. He was given Zofran 4 mg IV. There is no definite pneumonia. Urinalyis was unremarkable with a back-up culture pending. He does have a port and could have a line infection as well. I do think he needs to be admitted/observe for further inpatient treatment and evaluation. I discussed case with Dr. Anaya who who will admit him for these measures. 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, Fever Forms Stand Alone Forms: My [facility] Prescriptions Prescriptions: No Action gabapentin 300 mg capsule 600 mg PO .AM&NOON RF: 0 hydroxychloroquine 200 mg tablet 400 mg PO DAILY@1999 RF: 0 polyethylene glycol 3350 [Miralax] 17 gram Powder In Packet 17 g PO DAILY PRN (Reason: constipation) Qty: 30 RF: 0 methadone 5 mg tablet 5 mg PO BID RF: 0 aspirin 81 mg Tablet,Delayed Release (Dr/Ec) 81 mg PO DAILY Qty: 30 RF: 0 naloxone 4 mg/actuation spray,non-aerosol 4 mg intranasal UD PRN (Reason: Opiate Reversal) RF: 0 Metamucil 3.4 gram/5.4 gram Powder 1 tbsp PO DAILY PRN (Reason: Diarrhea) RF: 0 acetaminophen [Tylenol Extra Strength] 500 mg Tablet 1,000 mg PO Q6H RF: 0 gabapentin 300 mg capsule 900 mg PO DAILY@1999 RF: 0 metoprolol succinate 50 mg Tablet Extended Release 24 Hr 50 mg PO BID 30 Days Qty: 60 RF: 0 Lactinex 1 million cell tablet,chewable 1 tab PO TID Qty: 30 RF: 0 fentanyl 50 mcg/hr patch 72 hour 1 patch TD Q72H 10 Days Qty: 3 RF: 0 morphine 15 mg tablet 15 mg PO Q6H PRN (Reason: Pain) 3 Days Qty: 10 RF: 0 Discharge Problem: Sepsis Qualifiers: Sepsis type: sepsis due to unspecified organism Sepsis acute organ dysfunction status: without acute organ dysfunction Qualified Code(s): A41.9 - Sepsis, unspecified organism Fever Qualifiers: Fever type: unspecified Qualified Code(s): R50.9 - Fever, unspecified
[2019-08-16 21:32] LABS: Hematocrit (blood only) 28.9 % (42-52); Hemoglobin 9.2 g/dL (14.0-18.0); Mean Corpuscular Hemoglobin 26.7 pg (25-34); Mean Corpuscular Hgb Conc 31.8 g/dL (32-36); Mean Corpuscular Volume 83.8 fL (80-100); Mean Platelet Volume 8.4 fL (7.4-10.4); Platelet Count 581 K/uL (130-400); RDW Coefficient of Variation 16.2 % (11.5-14.5); RDW Standard Deviation 49.7 fL (36.4-46.3); Red Blood Count 3.45 M/uL (4.7-6.1); White Blood Count 17.21 K/uL (4.8-10.8)
[2019-08-16 21:43] LABS: INR 1.2 (0.9-1.1); Partial Thromboplastin Ratio 1.2; Partial Thromboplastin Time 32.5 Seconds (21.0-31.0); Prothrombin Time 12.4 Seconds (9.0-12.0)
[2019-08-16 21:49] LABS: Alanine Aminotransferase 32 U/L (12-78); Albumin Level 2.2 gm/dl (3.4-5.0); Aspartate Aminotransferase 123 U/L (15-37); Blood Urea Nitrogen 12 mg/dl (7-18); Calcium 8.9 mg/dl (8.5-10.1); Carbon Dioxide 28 mmol/L (21-32); Chloride 92 mmol/L (98-107); Creatinine Clr Calc Pharmacy 115.2 ml/min; Est GFR (African American) 99.6; Est GFR (Non-African American) 85.9; Glucose 87 mg/dl (70-99); Magnesium 1.8 mg/dl (1.8-2.4); Potassium 4.3 mmol/L (3.5-5.1); Sodium 126 mmol/L (136-145)
[2019-08-16 21:54] LABS: Albumin Globulin Ratio 0.5 (0.9-2); Alkaline Phosphatase 771 U/L (45-117); Bilirubin,Total 0.6 mg/dl (0.2-1); Globulin 4.6 gm/dl (2.5-4.0); Total Protein 6.8 gm/dl (6.4-8.2); Troponin I < 0.015 ng/ml (0-0.045)
[2019-08-16] MEDS ORDERED: ONDANSETRON INJ 2 MG/ML 2 ML VIAL IV STA (22:04)
[2019-08-16] MEDS ORDERED: ONDANSETRON INJ 2 MG/ML 2 ML VIAL ONE (22:05)
--- NOTE | 2019-08-16 22:08 | XRay Report ---
SINGLE VIEW CHEST CLINICAL HISTORY: Sepsis. FINDINGS: 2 AP, portable, upright chest radiographs are compared to chest x-ray and chest CT dated . The examination is degraded by portable technique and patient rotation. A right internal jug ular central venous infusion port is unchanged in position. The heart is mildly enlarged. The pulmona ry vasculature is noncongested. Advanced emphysema and chronic interstitial thickening are similar to previous. There is chronic elevation of right hemidiaphragm with bibasilar scarring/atelectasis. The re are numerous tiny pulmonary nodules. These were better assessed on the recent chest CT. No airspac e consolidation or large pleural effusion is identified. No pneumothorax is seen. The skeletal struct ures are osteopenic. The bony thorax is grossly intact. IMPRESSION: 1. Emphysematous change with no acute cardiopulmonary abnormality. 2. Numerous pulmonary nodules are consistent with multifocal pulmonary metastatic disease. This was b hiral assessed on the recent chest CT. ACT 112: Negative or not required by law. Electronically signed by: Han Page M.D. 08/16/2019 10:07 PM
[2019-08-16 22:28] LABS: Basophils # (auto) 0.07 K/uL (0-0.2); Basophils % (auto) 0.4 %; Eosinophils # (auto) 0.21 K/uL (0-0.5); Eosinophils % (auto) 1.2 %; Immature Granulocytes # (auto) 0.15 K/uL (0.00-0.02); Immature Granulocytes % (auto) 0.9 %; Lymphocytes # (auto) 1.31 K/uL (1.2-3.4); Lymphocytes % (auto) 7.6 %; Monocytes # (auto) 1.28 K/uL (0.11-0.59); Monocytes % (auto) 7.4 %; Neutrophils # (auto) 14.19 K/uL (1.4-6.5); Neutrophils % (auto) 82.5 %; Stomatocytes 1+
[2019-08-16 22:36] LABS: Appearance Urine Cloudy (Clear); Bacteria Urine Automated Negative (Negative); Bilirubin Urine Negative (Negative); Blood Urine Negative (Negative); Color Urine Yellow; Epithelial Cell Urine Auto 20-30 /lpf (0-5); Glucose Urine UA Negative (Negative); Ketones Urine Negative (Negative); Leukocyte Esterase Urine Negative (Negative); Nitrite Urine Negative (Negative); Protein Urine Trace (Negative); RBC Urine Automated 0-4 /hpf (0-4); Specific Gravity Urine 1.013 (1.000-1.030); Urobilinogen Urine Negative (Negative)
[2019-08-17] MEDS ORDERED: ONDANSETRON INJ 2 MG/ML 2 ML VIAL IV PRN (01:08)
[2019-08-17] MEDS ORDERED: ACETAMINOPHEN 500 MG TAB PO SCH (01:08)
[2019-08-17] MEDS ORDERED: POLYETHYLENE (MIRALAX) 17 GM PACK PO PRN ×2 (01:08)
[2019-08-17] MEDS ORDERED: NITROGLYCERIN SL 0.4 MG/TAB TAB SL PRN (01:08)
[2019-08-17] MEDS ORDERED: NALOXONE 4 MG INTNAS PRN (01:08)
[2019-08-17] MEDS ORDERED: PSYLLIUM 58.6% POWDER PACKET PO PRN (01:08)
[2019-08-17] MEDS: SODIUM CHLORIDE 0.9% 1000ML 1,000 ML IV SCH ×3 (01:37→19:42)
[2019-08-17] MEDS ORDERED: VANCOMYCIN CONSULT ACTIVE PRN (01:50)
[2019-08-17] MEDS: ACETAMINOPHEN 325 MG TAB PO PRN ×2 (02:14→21:04)
[2019-08-17] MEDS ORDERED: VANCOMYCIN HCL 2,500 MG in SODIUM CHLORIDE 0.9% 500 ML IV ONE (02:30)
[2019-08-17] MEDS: PIPERACILLIN/TAZOBACTAM 3.375 GM in DEXTROSE 5% 100 ML IV SCH ×3 (03:50→19:37)
--- NOTE | 2019-08-17 03:50 | History and Physical Report ---
DATE OF ADMISSION: 08/16/2019 CHIEF COMPLAINT: Fever, confusion. 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 Cultures were negative. Influenza was negative. COVID-19 test was also performed which was also negative. He was treated with IV antibiotics .He was also in hospital from 07/27 to 08/02 and at that time , blood cultures grew coag negative staph and urine cultures grew Enterococcus, which was treated with daptomycin, completed antibiotics on 08/11/2019. He was discharged to home. Today he got a little confused at home and his was worried he was not answering appropriately, he was not lucid. Thought again sepsis might be coming back and he was brought to the hospital. Here his mental status seemed to be back to baseline, but he spiked temperature to 38.5. His white count is elevated at 17, sodium is 126. Urinalysis negative. Chest x-ray, no acute findings. So again patient is having fever of unknown origin. He has some occasional cough with whitish phlegm. No shortness of breath, no chest pain. No headache. No neck aches, no blurred visions, no earache, no runny nose, no sore throat, no dysphagia. Appetite is okay. He is somewhat constipated from his pain medications. No blood in stools or black stools. No burning micturition, no hematuria. No rash. Currently resting comfortable and hemodynamically stable. He was given Zosyn and daptomycin in the ER. ALLERGIES: No known drug allergies. PAST MEDICAL HISTORY: As mentioned above. PAST SURGICAL HISTORY: History of cardiac catheterization, history of tooth extraction, history of colonoscopy. SOCIAL HISTORY: No smoking, no alcohol, no substance abuse. FAMILY HISTORY: Maternal grandfather, diabetes. MEDICATIONS: The patient is on Tylenol, fentanyl, aspirin 81 mg p.o. daily, Tylenol 1000 mg p.o. q. 6 hours, fentanyl patch 50 mcg q. 72 hours, gabapentin 600 mg p.o. a.m. and noon, gabapentin 900 mg p.o. daily at 8:00 p.m., hydroxychloroquine 400 mg p.o. daily, Lactinex 1 tablet p.o. t.i.d., Metamucil 1 tablespoon p.o. daily p.r.n., methadone 5 mg p.o. b.i.d., metoprolol succinate 50 mg p.o. b.i.d., morphine 50 mg p.o. q. 6 hours p.r.n., naloxone 4 mg intranasal p.r.n., MiraLax 17 grams p.o. daily p.r.n. REVIEW OF SYSTEMS: As per HPI. Rest of the review of systems negative. PHYSICAL EXAMINATION: GENERAL: The patient is of moderate build, not in acute distress. VITAL SIGNS: Temperature T-max 38.5, pulse 88, respiratory rate 20, blood pressure 150/98, oxygen 95% on room air. HEENT: No pallor, no icterus. Extraocular muscles intact. NECK: No JVD, no neck masses. Supple. CARDIOVASCULAR: S1, S2 heard, regular rate and rhythm. No murmur, no gallop. RESPIRATORY SYSTEM: Normal AP diameter. No accessory muscle use. No wheezing. No crackles. ABDOMEN: Soft, bowel sounds present, nontender. No distention seen. CENTRAL NERVOUS SYSTEM: Cranial nerves II-XII grossly intact, nonfocal. EXTREMITIES: No edema, no erythema. SKIN: Right chest A-port site clean, no erythema or drainage seen. LABORATORY DATA: WBC 17.2, hemoglobin 9.2, hematocrit 28.9, platelets 581. PT 12.4, INR 1.2, APTT 32.5. Sodium 126, potassium 4.3, chloride 92, bicarbonate 28, BUN 12, creatinine 0.9, serum glucose 87. Lactate 1.4, calcium 8.9, magnesium 1.8, total bilirubin 0.6, AST 123, ALT 32, alkaline phosphatase 771. Troponin I less than 0.015. Procalcitonin 0.43. Urinalysis negative. IMAGING DATA: Chest x-ray, no acute findings. EKG: Normal sinus rhythm, rate of 90, no significant change from previous EKG. ASSESSMENT AND PLAN: This is a 64-year-old male with history of gastroesophageal junction adenocarcinoma with metastases to liver and spine, who was recently in the hospital with fever and treated with antibiotics, comes back with again fever and confusion. 1. Fever and confusion, fever of unknown origin, possible early sepsis with fever, leukocytosis, and confusion. Currently mental status at baseline. In the ER, was given IV Zosyn and IV daptomycin, will change daptomycin to iv vanco as having cough.. Follow the cultures. IV fluids at 100 mL per hour. Closely monitor in the Med/Surg tele. Last admission, COVID was tested and was negative. 2. Hyponatremia, sodium 126, last admission sodium was 130. Getting fluids now. 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 Follow the labs in the a.m. If it goes more than 8 mEq, we will change the fluids to D5 water. 3. History of chronic systolic congestive heart failure with last echo showing EF of 35% to 40%, on metoprolol 25 b.i.d. withholding parameters. Getting fluids. Monitor for any volume overload. 4. 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 Continue his home pain medications. Elevated alkaline phosphatase, most likely secondary to metastatic disease. 5. Chronic kidney disease stage III. Avoid nephrotoxic agents. Currently stable. 6. Thrombocytosis, will follow the labs. 7. Rheumatoid arthritis, continue Plaquenil. 8. History of atrial fibrillation, rate controlled on metoprolol, not on anticoagulation. 9. Deep venous thrombosis prophylaxis, sequential compression devices for now. 10. Disposition: Closely monitor in the Med/Surg tele. Level 1 full code as per my discussion with the patient. PT and OT prior to discharge. Social service to help with discharge planning. MASHAD
--- NOTE | 2019-08-17 08:54 | Pharmacy Report ---
Pharmacy Abx Initial Consult - Date of Service August 17, 2019 - Pharmacy Dosing Scope Date of Consult: 08/16 Consultation requested by: Dr. Anaya Pharmacy is consulted to initiate vancomycin and Zosyn IV dosing therapy, order appropriate labs and adjust drug dose/frequency. - Subjective The patient is a 64 year old M admitted on 08/16/19 23:50. - Objective Height: 6 ft 5 in Weight: 119 kg Vital Signs (Past 12hrs): Vital Signs Temp Pulse Pulse Resp BP BP BP 08/17/19 07:40 36.8 C 76 20 121/82 08/17/19 04:00 36.6 C 80 18 107/71 08/17/19 00:30 38.2 C H 91 H 87 16 144/89 H 08/17/19 00:08 36.5 C 88 20 150/98 H 08/16/19 23:14 90 20 107/86 08/16/19 22:10 96 H 26 H 08/16/19 22:00 102 H 23 150/117 H 08/16/19 21:50 95 H 20 08/16/19 21:40 90 21 08/16/19 21:31 91 H 22 08/16/19 21:30 90 18 156/98 H 08/16/19 21:23 91 H 22 149/95 H 08/16/19 21:20 90 20 08/16/19 21:18 08/16/19 21:10 93 H 24 08/16/19 21:00 92 H 19 08/16/19 20:50 96 H 21 08/16/19 20:44 94 H 26 H Pulse Ox 08/17/19 07:40 97 08/17/19 04:00 96 08/17/19 00:30 91 08/17/19 00:08 95 08/16/19 23:14 96 08/16/19 22:10 97 08/16/19 22:00 96 08/16/19 21:50 97 08/16/19 21:40 97 08/16/19 21:31 97 08/16/19 21:30 96 08/16/19 21:23 92 08/16/19 21:20 91 08/16/19 21:18 95 08/16/19 21:10 91 08/16/19 21:00 94 08/16/19 20:50 95 08/16/19 20:44 92 Lab Results (24hrs): Laboratory Tests (24 Hours) 08/16/19 08/16/19 08/16/19 21:20 21:20 21:20 WBC 17.21 H Neut # (Auto) 14.19 H Creatinine 0.94 Est Cr Clr Drug Dosing 115.2 Procalcitonin 0.43 Micro Results: 08/16/19 21:20 Aerobic Blood Culture - Pending Blood Anaerobic Blood Culture - Pending 08/16/19 21:19 Aerobic Blood Culture - Pending Blood Anaerobic Blood Culture - Pending - Risk Factors for Resistance * Hospitalization for 48 hours or more within the past 90 days * Immunocompromised (immunomodulators) * Antimicrobial use within the last 90 days : daptomycin for [employer] bacteremia and enterococcus in urine (completed course on 08/10) - Assessment & Plan Assessment 64 year old M admitted for fever and confusion. PMH pertinent for gastroesophageal junction adenocarcinoma with mets to liver and spine, CHF, CKD Stage III, RA, a.fib. Patient recently admitted to the hospital for sepsis and was treated with IV antibiotics. Patient's brought patient back because of confusion and elevated temperature. Upon presentation, WBC elevated, UA and CXR negative. Antibiotics initiated for fever of unknown origin. Daptomycin initially started but this was changed to vancomycin due to patient's cough and potential for pulmonary source of infection. Plan Vancomycin and Zosyn for treatment of fever of unknown origin, possible early sepsis Vancomycin IV * Estimated PK Parameters: Vd 0.7 L/kg, Eric 0.1 hr-1, t1/2 6.9 hr * Loading dose: 2500 mg (21 mg/kg) * Maintenance dose: 1750 mg IV (14.7 mg/kg) every 12 hours - initiated by overnight pharmacist. Dosing used is similar to previous dosing that provided a therapeutic trough level. * Goal trough level : 15 to 20 mcg/mL * No levels ordered at this time since vancomycin is only ordered for empiric - 48 hour duration * SCr ordered for 08/17 * Will not obtain MRSA nasal swab since source of infection is unknown Piperacillin/tazobactam * 4.5 g bolus administered over 30 minutes, then 3.375 g IV extended infusion e very 8 hours for CrCl greater than 20 mL/min Pharmacy will continue to follow and will adjust dose/frequency as necessary. Thank you.
[2019-08-17] MEDS ORDERED: fentaNYL 50 MCG/HR TDSY TD SCH (09:00)
[2019-08-17] MEDS: METHADONE HCL 5 MG TAB PO SCH ×2 (09:06→19:42)
[2019-08-17] MEDS: ASPIRIN 81 MG ECTAB PO SCH (09:07)
[2019-08-17] MEDS: GABAPENTIN 300 MG CAP PO SCH ×3 (09:07→19:37)
[2019-08-17] MEDS: LACTOBACILLUS ACIDOPHILUS (FLORANEX) TAB PO SCH ×3 (09:07→17:34)
[2019-08-17] MEDS: METOPROLOL SUCC 50MG EXT REL TAB PO SCH ×2 (09:08→19:38)
[2019-08-17] MEDS: [UNRECOGNIZED DRUG - REMARK] SCH ×3 (11:38→23:39)
--- NOTE | 2019-08-17 11:49 | Electrocardiogram Report ---
Test Reason : Blood Pressure : / mmHG Vent. Rate : 090 BPM Atrial Rate : 090 BPM P-R Int : 158 ms QRS Dur : 114 ms QT Int : 376 ms P-R-T Axes : 066 057 074 degrees QTc Int : 459 ms Normal sinus rhythm Low voltage QRS Cannot rule out Anterior infarct , age undetermined Incomplete right bundle branch block Abnormal ECG When compared with ECG of 09-AUG-2019 10:52, No significant change was found Confirmed by Myke Deng ([id number]) on 08/17/2019 11:48:58 AM Referred By: REFERRED SELF Confirmed By:Adeel Deng
--- NOTE | 2019-08-17 14:12 | Communication Note ---
Date of Service: August 17, 2019 He is a 64-year-old male with metastatic GE junction adenocarcinoma, PAF not on any anticoagulation, ischemic cardiomyopathy with EF of 35 to 40%, chronic lower extremity lymphedema and CKD admitted with fever and change in mental status early this morning. This is his third admission since the beginning of this month. Initial admission was due to gram-positive bacteremia secondary to UTI, second admission was due to fever and change in mental status and during that time no infective focus was found and the patient was sent home without any antibiotic. The latest admission is again with one episode of fever of 38 C at home with questionable change in mental status. Again no obvious source of infection was found and he has been on intravenous Zosyn and vancomycin for now. Blood culture has been sent and if it is positive then need to rule out possible infective endocarditis by doing preferably DELL. The fever seems to be secondary to cancer itself and he has not been seen by oncologist more than a month. Surprisingly he comes to the hospital on the day or prior to the day of his appointment with the oncologist. He was evaluated by palliative care and has been getting pain medications from Dr. Perdomo. He has hyponatremia likely secondary to SIADH due to cancer. He has been on fluid restriction for that. He remains hemodynamically stable as of today without any fever and no chills.his white count is elevated at 17,000. PT and OT have been requested for possible placement Dr Nisa Mederos
[2019-08-17] MEDS: VANCOMYCIN HCL 1,750 MG in SODIUM CHLORIDE 0.9% 500 ML IV SCH (14:16)
[2019-08-17] MEDS: CHECK FENTANYL PATCH PLACEMENT SCH ×2 (16:50→23:38)
[2019-08-17] MEDS: MoRPHine SULFATE IR 15 MG TAB (IMMEDIATE RELEASE) PO PRN (16:50)
[2019-08-18] MEDS: VANCOMYCIN HCL 1,750 MG in SODIUM CHLORIDE 0.9% 500 ML IV SCH ×2 (01:27→15:44)
[2019-08-18] MEDS: ACETAMINOPHEN 325 MG TAB PO PRN ×4 (01:29→20:14)
[2019-08-18] MEDS: PIPERACILLIN/TAZOBACTAM 3.375 GM in DEXTROSE 5% 100 ML IV SCH ×3 (04:09→19:59)
[2019-08-18 05:41] LABS: Hematocrit (blood only) 25.6 % (42-52); Hemoglobin 8.1 g/dL (14.0-18.0); Mean Corpuscular Hemoglobin 27.1 pg (25-34); Mean Corpuscular Hgb Conc 31.6 g/dL (32-36); Mean Corpuscular Volume 85.6 fL (80-100); Mean Platelet Volume 8.4 fL (7.4-10.4); Platelet Count 452 K/uL (130-400); RDW Coefficient of Variation 16.9 % (11.5-14.5); RDW Standard Deviation 52.8 fL (36.4-46.3); Red Blood Count 2.99 M/uL (4.7-6.1)
[2019-08-18 06:00] LABS: Basophils # (auto) 0.07 K/uL (0-0.2); Basophils % (auto) 0.5 %; Eosinophils # (auto) 0.69 K/uL (0-0.5); Eosinophils % (auto) 4.6 %; Immature Granulocytes # (auto) 0.16 K/uL (0.00-0.02); Immature Granulocytes % (auto) 1.1 %; Lymphocytes # (auto) 1.52 K/uL (1.2-3.4); Lymphocytes % (auto) 10.1 %; Monocytes # (auto) 1.09 K/uL (0.11-0.59); Monocytes % (auto) 7.3 %; Neutrophils # (auto) 11.47 K/uL (1.4-6.5); Neutrophils % (auto) 76.4 %
[2019-08-18] MEDS: SODIUM CHLORIDE 0.9% 1000ML 1,000 ML IV SCH (06:16)
[2019-08-18 06:19] LABS: BUN Creatinine Ratio 12.6 (10-20); Calcium 8.5 mg/dl (8.5-10.1); Creatinine Clr Calc Pharmacy 114.9 ml/min; Est GFR (African American) 98.3; Est GFR (Non-African American) 84.9; Potassium 3.9 mmol/L (3.5-5.1)
--- NOTE | 2019-08-18 08:05 | Hospitalist Progress Note ---
Date of Service August 18, 2019 Assessment & Plan (1) Fever, unknown origin: 64 y/o male with history of gastroesophageal junction adenocarcinoma with metastases to liver, lungs and spine, who was recently in the hospital with fever and treated with antibiotics, who comes back with again fever and confusion. 1. Fever and confusion, fever of unknown origin - possible early sepsis with fever, leukocytosis, and confusion - Currently mental status at baseline - In the ER, was given IV Zosyn and IV daptomycin, changed daptomycin to IV vanco as having cough. - Follow the cultures. Closely monitor in the Med/Surg tele - Last admission, COVID was tested and was negative - ID consulted, previously pt did not have echo to eval for poss. endocarditis, also pt has R IJ tunneled line placed in June, prior to fevers ? sources - Blood cultx on previous admission - negative - will obtain LE doppler 2. Hyponatremia, sodium 126, last admission sodium was 130. 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 Follow the labs in the a.m. If it goes more than 8 mEq, we will change the fluids to D5 water 3. History of chronic systolic congestive heart failure with last echo showing EF of 35% to 40%, on metoprolol 25 b.i.d. withholding parameters. Received fluids. Monitor for any volume overload. 4. 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 - Continue his home pain medications. Lastly prescribed by Dr. Perdomo, palliative medicine was consulted on his previous admission. - Currently patient is on methadone, and fentanyl patch, pain is well controlled - Contacted by patient's PCP office, concern for multiple prescribers, want to make sure that Dr. Perdomo is the only prescriber of pain/controlled meds - We will reach out to Dr. Perdomo and her team - Discussed with Dr. Perdomo, patient has history of prolonged QTc, recommend EKG that she can review - Elevated alkaline phosphatase, most likely secondary to metastatic disease -Patient is supposed to follow-up with Dr. Blank (oncology). Unfortunately had to cancel previous appointments as he was re-admitted to the hospital. His next appointment is next Friday (08/27/2019) and patient is very much looking forward to this appointment to further discuss the plan of care. Opiate-induced constipation -Patient says he did not have a bowel movement in past couple of days -We will prescribe MiraLAX 3 times daily, Dulcolax suppository as needed 5. Chronic kidney disease stage III. Avoid nephrotoxic agents. Currently stable. 6. Thrombocytosis, will follow the labs. 7. Rheumatoid arthritis, continue Plaquenil. 8. History of atrial fibrillation, rate controlled on metoprolol, not on anticoagulation. 9. Deep venous thrombosis prophylaxis, SCDs for now. 10. Disposition: PT and OT prior to discharge. Social service to help with discharge planning. Patient wishes to be discharged home, this was in detail discussed with him, and case management. Mya from [facility] aware. Also [facility] set up for the patient. Admission and Anticipated Discharge Date Admission Date: August 16, 2019 Subjective Patient is lying in bed, in no acute distress. Currently denies any fevers, chills, chest pain, shortness of breath, abdominal pain. He says he is constipated, feels that he did have a bowel movement in the past several days. Discussed his pain management, says that his pain is now much better controlled on fentanyl patch and methadone, prescribed by Dr. Perdomo. I was also contacted by his PCP office, making sure that Dr. Perdomo is to only prescriber for his pain medications. Will reach out to Dr. Perdomo's team. He also mentions that he has appointment with Dr. Awan, next Friday. He is very much looking forward to the appointment so he can discuss the further plan. He is also inquiring about going home, discussed with him the possible rehab, however he states that he is much more comfortable at home and this already has been discussed between his and Mya, from [facility]. WBC down to 15 K from 17.2K Hgb down to 8.1 from 9.2 Na up 134 from 126, will stop IVF Afebrile for past 24 hrs ID consulted Review of Systems Review of Systems: All systems reviewed & are unremarkable except as noted in HPI & below Constitutional: no fever and no chills Respiratory: no cough and no dyspnea Cardiovascular: no chest pain, no palpitations and no edema Gastrointestinal: + constipation; no abdominal pain, no nausea and no vomiting Physical Exam Physical Exam: GENERAL: The patient is of moderate build,lying in bed, in no acute distress HEENT: NC/AT, Extraocular muscles intact, PERRL NECK: No JVD, no neck masses. Supple. CHEST: Right chest A-port site clean, no erythema or drainage seen CARDIOVASCULAR: S1, S2 heard, regular rate and rhythm. No murmur, no gallop. RESPIRATORY SYSTEM: No accessory muscle use. CTAB, no wheezing, rhonchi or crackles. ABDOMEN: Soft, bowel sounds present, nontender. No distention. Obese. CENTRAL NERVOUS SYSTEM: Alert and oriented x3, speech fluent, no facial symmetry, cranial nerves II-XII grossly intact, nonfocal, moves all 4 extremities spontaneously EXTREMITIES: No sign. LE edema b/l, skin changes consistent with venous stasis dermatitis SKIN: Warm, dry, venous stasis dermatitis, as above Results & Data Results & Data ([facility]) Vital Signs (Past 12 Hours) Vital Signs Temp Pulse Pulse Resp BP Pulse Ox 08/18/19 07:31 36.8 C 77 18 128/82 94 08/18/19 07:29 81 08/18/19 03:50 36.9 C 82 20 129/87 95 08/17/19 23:18 37.3 C 89 20 143/83 H 93 08/17/19 23:01 92 H Laboratory Results 08/18/19 08/18/19 Range/Units 05:19 05:19 WBC 15.00 H (4.8-10.8) K/uL RBC 2.99 L (4.7-6.1) M/uL Hgb 8.1 L (14.0-18.0) g/dL Hct 25.6 L (42-52) % MCV 85.6 (80-100) fL MCH 27.1 (25-34) pg MCHC 31.6 L (32-36) g/dL RDW Std Deviation 52.8 H (36.4-46.3) fL RDW Coeff of Arlyn 16.9 H (11.5-14.5) % Plt Count 452 H (130-400) K/uL MPV 8.4 (7.4-10.4) fL Immature Gran % (Auto) 1.1 % Neut % (Auto) 76.4 % Lymph % (Auto) 10.1 % [place] % (Auto) 7.3 % Eos % (Auto) 4.6 % Baso % (Auto) 0.5 % Immature Gran # (Auto) 0.16 H (0.00-0.02) K/uL Neut # (Auto) 11.47 H (1.4-6.5) K/uL Lymph # (Auto) 1.52 (1.2-3.4) K/uL [place] # (Auto) 1.09 H (0.11-0.59) K/uL Eos # (Auto) 0.69 H (0-0.5) K/uL Baso # (Auto) 0.07 (0-0.2) K/uL Sodium 134 L D (136-145) mmol/L Potassium 3.9 (3.5-5.1) mmol/L Chloride 102 (98-107) mmol/L Carbon Dioxide 27 (21-32) mmol/L Anion Gap 5.0 (3-11) BUN 12 (7-18) mg/dl Creatinine 0.95 (0.6-1.4) mg/dl Est Cr Clr Drug Dosing 114.9 ml/min Est GFR ( Amer) 98.3 Est GFR (Non-Af Amer) 84.9 BUN/Creatinine Ratio 12.6 (10-20) Glucose 87 (70-99) mg/dl Calcium 8.5 (8.5-10.1) mg/dl Magnesium 2.0 (1.8-2.4) mg/dl Medications Administered Current Inpatient Medications Acetaminophen (Tylenol) 650 mg PO Q4H PRN PRN Reason: Pain or Fever Stop: 09/16/19 01:07 Last Admin: 08/18/19 01:29 Dose: 650 mg Documented by: Aspirin (Ecotrin Ectab) 81 mg PO DAILY [facility] Stop: 09/16/19 08:59 Last Admin: 08/17/19 09:07 Dose: 81 mg Documented by: Fentanyl (Duragesic) 50 mcg TD Q72H [facility] Stop: 08/31/19 08:59 Last Admin: 08/17/19 09:06 Dose: 50 mcg Documented by: Gabapentin (Neurontin) 600 mg PO BID@0900,1200 [facility] Stop: 09/16/19 08:59 Last Admin: 08/17/19 11:38 Dose: 600 mg Documented by: Gabapentin (Neurontin) 900 mg PO DAILY@2000 [facility] Stop: 09/16/19 19:59 Last Admin: 08/17/19 19:37 Dose: 900 mg Documented by: Sodium Chloride (Nss 1000ml) 1,000 mls @ 100 mls/hr IV .Q10H [facility] Stop: 09/16/19 01:07 Last Admin: 08/18/19 06:16 Dose: 100 mls/hr Documented by: Piperacillin Sod/Tazobactam (Sod 3.375 gm/ Dextrose) 115 mls @ 28.75 mls/hr IV Q8H [facility]; Protocol Stop: 08/19/19 03:59 Last Admin: 08/18/19 04:09 Dose: 28.8 mls/hr Documented by: Vancomycin HCl 1,750 mg/ (Sodium Chloride) 535 mls @ 200 mls/hr IV Q12H [facility] Stop: 08/19/19 13:59 Last Infusion: 08/18/19 04:08 Dose: Infused Documented by: Lactobacillus Acidophilus (Floranex) 4 tab PO TIDM [facility] Stop: 09/16/19 07:59 Last Admin: 08/17/19 17:34 Dose: 4 tab Documented by: Methadone HCl (Dolophine) 5 mg PO BID [facility] Stop: 08/31/19 08:59 Last Admin: 08/17/19 19:42 Dose: 5 mg Documented by: Metoprolol Succinate (Toprol Xl) 50 mg PO BID [facility] Stop: 09/16/19 08:59 Last Admin: 08/17/19 19:38 Dose: 50 mg Documented by: Miscellaneous (Fentanyl Patch Remove & Waste) 1 ea N/A Q72H [facility] Stop: 09/16/19 08:58 Last Admin: 08/17/19 09:06 Dose: 1 ea Documented by: Miscellaneous (Fentanyl Patch Check Placement) 1 ea N/A QS [facility] Stop: 09/16/19 15:59 Last Admin: 08/17/19 23:38 Dose: 1 ea Documented by: Miscellaneous (Order Awaiting Action) 1 ea N/A QS [facility] Stop: 09/16/19 10:29 Last Admin: 08/17/19 23:39 Dose: Not Given Documented by: Miscellaneous Information (Consult) 1 ea N/A UD PRN PRN Reason: Consult Stop: 09/15/19 20:58 Miscellaneous Information (Consult) 1 ea N/A UD PRN PRN Reason: Consult Stop: 09/16/19 01:49 Morphine Sulfate (Morphine Sulfate Ir) 15 mg PO Q6H PRN PRN Reason: Pain Stop: 08/31/19 01:07 Last Admin: 08/17/19 16:50 Dose: 15 mg Documented by: Nitroglycerin (Nitrostat) 0.4 mg SL UD PRN PRN Reason: Chest Pain Stop: 09/16/19 01:07 Ondansetron HCl (Zofran) 4 mg IV Q6H PRN PRN Reason: Nausea Stop: 09/16/19 01:07 Polyethylene Glycol (Miralax Powder Packet) 17 gm PO DAILY PRN PRN Reason: Constipation Stop: 09/16/19 01:07 Psyllium Hydrophilic Mucilloid (Metamucil) 1 pkt PO DAILY PRN PRN Reason: Diarrhea
[2019-08-18] MEDS: [UNRECOGNIZED DRUG - REMARK] SCH ×3 (08:24→23:40)
[2019-08-18] MEDS: HEPARIN 100 UNIT/ML 5ML FLUSH FLUSH PRN (08:44)
[2019-08-18] MEDS: LACTOBACILLUS ACIDOPHILUS (FLORANEX) TAB PO SCH ×3 (08:47→18:20)
[2019-08-18] MEDS: CHECK FENTANYL PATCH PLACEMENT SCH ×3 (08:47→23:35)
[2019-08-18] MEDS: METHADONE HCL 5 MG TAB PO SCH ×2 (08:47→20:06)
[2019-08-18] MEDS: ASPIRIN 81 MG ECTAB PO SCH (08:48)
[2019-08-18] MEDS: GABAPENTIN 300 MG CAP PO SCH ×3 (08:48→19:58)
[2019-08-18] MEDS: METOPROLOL SUCC 50MG EXT REL TAB PO SCH ×2 (08:48→20:09)
--- NOTE | 2019-08-18 12:24 | Infectious Disease Consult ---
Date of Consultation August 18, 2019 Assessment & Plan (1) Fever: suspect tumor related. no clinical signs of infectious etiology, would continue IV abx x 24 hours and if blood cultures remain negative would stop IV abx. could cosider dopplers but he states he has had multiple done and always negative. could trial naproxen for treatment for tumor fever. no contraindication to d/c if remains afebrile, stable and cultures negative in am. (2) Malignant neoplasm of gastroesophageal junction: History of Present Illness Attending Physician: Mike Berg MD pt admitted with fever. was recently treated with dapto for Enterococcus uti. tolerated well. no gu symptoms. has had several admissions recently for fever. all blood cultures negative. blood cultures again repeat on 08/15 and are negative. he has had previous workup for flu and COVID, both negative. (08/08). pt is known to have metastatic GE junction cancer and fever felt related to this. 08/15 tmax 38.5, 08/16, 38.2, afebrile currently and feeling much better. on vanco and zosyn emperically, tolerating well. no cp, sob, cough, no wisdom, no abd pain, no n/v/d. no gu symptoms. eating well. no leg pain or swelling no rash. wbc 17 in ER, 15 today, CXR shows mets only, no infiltrate noted, UA negative. 08/08 ct chest showed pulm, liver and bone mets, AST elevated at 123, has been elevated for some months. asking to go home. Allergies Allergy/AdvReac Type Severity Reaction Status Date / Time No Known Allergies Allergy Verified 08/09/19 11:33 Home Medications Home Medications Medication Instructions Recorded Confirmed Type gabapentin 600 mg PO .AM&NOON 06/14/19 08/16/19 History hydroxychloroquine 400 mg PO DAILY@199906/14/19 08/16/19 History polyethylene glycol 3350 [Miralax] 17 g PO DAILY PRN #30 ea 06/18/19 08/16/19 Rx naloxone 4 mg INTRANASAL UD PRN 06/28/19 08/16/19 History Metamucil 1 tbsp PO DAILY PRN 06/30/19 08/16/19 History acetaminophen [Tylenol Extra 1,000 mg PO Q6H 07/28/19 08/16/19 History Strength] gabapentin 900 mg PO DAILY@199907/28/19 08/16/19 History Lactinex 1 tab PO TID #30 tab 08/03/19 08/16/19 Rx fentanyl 1 patch TD Q72H 10 Days #3 ea 08/03/19 08/16/19 Rx metoprolol succinate 50 mg PO BID 30 Days #60 tab 08/03/19 08/16/19 Rx morphine 15 mg PO Q6H PRN 3 Days #10 tab 08/03/19 08/16/19 Rx methadone 5 mg PO BID 08/09/19 08/16/19 History aspirin 81 mg PO DAILY #30 tab 08/12/19 08/16/19 Rx Patient History Medical History Acute hypoxemic respiratory failure 06/2018 Afib Recent confinement June 2018 for new diagnosis of heart failure. Paroxysmal A. fib noted during confinement. Patient discharged on Eliquis for anticoagulation.> PT REPORTS NO LONGER ON ELIQUIS> THIS WAS ISOLATED INCIDENT Eliquis discontinued a few months later by television receiver analyzer after outpatient telemetry did not show recurrent AF. Anxiety Atypical chest pain Cancer associated pain (Inactive) Cardiomyopathy Severe LV dysfunction with EF of 30% found on admission June 2018. TTE 11/02/2018 showed resolution of cardiomyopathy with EF greater than 70%. Chronic anemia CKD (chronic kidney disease), stage III Constipation Elevated troponin 06/2018. Cardiac catheterization performed during admission showed severe LV dysfunction with EF of 30% but large-caliber coronaries with minimal irregularities at most. Elevation felt secondary to demand ischemia from cardiomyopathy/fluid overload. GE junction carcinoma GERD (gastroesophageal reflux disease) HX Hypertension Malignant neoplasm of gastroesophageal junction REASON FOR PROCEDURE > RADIATION AT PRESENT Metastatic cancer to spine (Inactive) Nonischemic cardiomyopathy Paroxysmal atrial fibrillation Pathologic compression fracture of lumbar vertebra L5 with retropulsion > W/C AT PRESENT Pneumonia 06/2018 Rheumatoid arthritis Surgical History History of cardiac cath JUNE 2018 > FOR C.P/SOB > [facility] > NO STENTS History of tooth extraction Hx of colonoscopy Family History Grandfather (Maternal) Diabetes Social History (Reviewed 08/18/19 @ 12:21 by KRISTI Araujo Preferred Language: Estonian Communication Ability: Effective Sports Lawyer Required: No Beliefs That Will Affect Care: None marital status: Current Living Situation: Spouse Other Information That Helps Us Care for You: No Feels Safe at Home: Yes Safety Concerns: Feels Safe At This Time Smoking Status: Never smoker Second Hand Exposure: No ; Hx Alcohol Use: Yes Alcohol type: beer and wine Hx Substance Use: No Review of Systems Review of Systems: All systems reviewed & are unremarkable except as noted in HPI & below Psychiatric: as per Subjective / HPI Physical Exam Constitutional: WD/WN, vitals as above Eyes: PERRL, conjunctivae normal, anicteric sclerae ENMT: external ear and nose normal, oropharynx normal Neck: normal visual inspection Respiratory: normal respiratory effort, lungs clear to auscultation Cardiovascular: RRR, no murmur, no edema Gastrointestinal (Abdomen): normal bowel sounds, soft, nontender, no hepatosplenomegaly Musculoskeletal: no cyanosis or clubbing, extremities motor strength 5/5 Skin: no rashes, warm and dry Psychiatric: A+Ox3, euthymic affect Results & Data ([facility]) Vital Signs (Past 12 Hours) Vital Signs Temp Pulse Pulse Resp BP Pulse Ox 08/18/19 11:29 36.8 C 84 18 130/83 95 08/18/19 07:31 36.8 C 77 18 128/82 94 08/18/19 07:29 81 08/18/19 03:50 36.9 C 82 20 129/87 95 Laboratory Results Microbiology 08/16/19 21:20 Blood Aerobic Blood Culture - Preliminary No growth in Aerobic bottle after 24 hours. 08/16/19 21:20 Blood Anaerobic Blood Culture - Preliminary No growth in Anaerobic bottle after 24 hours. 08/16/19 21:19 Blood Aerobic Blood Culture - Preliminary No growth in Aerobic bottle after 24 hours. 08/16/19 21:19 Blood Anaerobic Blood Culture - Preliminary No growth in Anaerobic bottle after 24 hours. PG Care Time/CCT Total # of Minutes Spent Total Time Spent with Patient: Total time spent is greater than 50% in coordination of care (as documented) at patient's floor/unit and/or counseling patient: Coding Level of Care Code 02484 Inpt Consult Level 4 Diagnoses Fever R50.9 Fever type: unspecified Malignant neoplasm of gastroesophageal junction C16.0 (1) Fever Fever type: unspecified Qualified Code(s): R50.9 - Fever, unspecified
[2019-08-18] MEDS ORDERED: bisacodyL 10 MG SUPP PR PRN (14:38)
[2019-08-18 15:42] LABS: BUN Creatinine Ratio 10.3 (10-20); Calcium 8.8 mg/dl (8.5-10.1); Creatinine Clr Calc Pharmacy 108.1 ml/min; Est GFR (African American) 91.3; Est GFR (Non-African American) 78.8; Potassium 4.1 mmol/L (3.5-5.1)
[2019-08-18] MEDS: POLYETHYLENE (MIRALAX) 17 GM PACK PO SCH ×2 (16:01→19:57)
--- NOTE | 2019-08-18 17:05 | Ultrasound Report ---
ULTRASOUND BILATERAL LOWER EXTREMITY VENOUS CLINICAL HISTORY: Fever of unknown origin. COMPARISON STUDY: Right lower extremity venous ultrasound dated 06/14/2019. Left lower extremity venou s ultrasound dated 04/23/2019. TECHNIQUE: Real-time, grayscale, and color Doppler sonography of the deep veins of the right and left lower extremity was performed from the inguinal crease to the calf. Compression and augmentation wer e utilized. FINDINGS: There is no sonographic evidence of deep venous thrombosis identified in the right or left lower extremity. The common femoral, superficial femoral, and popliteal veins are patent and normally compressible bilaterally. The greater saphenous vein and the profunda femoris vein at the junction w ith the common femoral vein are clear in both legs. The visualized calf veins are patent bilaterally. IMPRESSION: There is no sonographic evidence of deep venous thrombosis identified in the right or lef t lower extremity. ACT 112: Negative or not required by law. Electronically signed by: Han Page M.D. 08/18/2019 5:03 PM
--- NOTE | 2019-08-18 17:11 | Electrocardiogram Report ---
Test Reason : Blood Pressure : / mmHG Vent. Rate : 076 BPM Atrial Rate : 076 BPM P-R Int : 168 ms QRS Dur : 108 ms QT Int : 404 ms P-R-T Axes : 066 062 066 degrees QTc Int : 454 ms Normal sinus rhythm Low voltage QRS Borderline ECG When compared with ECG of 16-AUG-2019 21:28, Minimal criteria for Anterior infarct are no longer Present Confirmed by Myke Deng ([id number]) on 08/18/2019 5:11:14 PM Referred By: REFERRED SELF Confirmed By:Adeel Deng
[2019-08-19] MEDS: MoRPHine SULFATE IR 15 MG TAB (IMMEDIATE RELEASE) PO PRN ×2 (00:32→08:40)
[2019-08-19] MEDS: VANCOMYCIN HCL 1,750 MG in SODIUM CHLORIDE 0.9% 500 ML IV SCH (02:08)
[2019-08-19] MEDS: HEPARIN 100 UNIT/ML 5ML FLUSH FLUSH PRN ×3 (04:57→13:49)
[2019-08-19 06:12] LABS: Hematocrit (blood only) 28.6 % (42-52); Mean Corpuscular Hemoglobin 26.9 pg (25-34); Mean Corpuscular Hgb Conc 31.5 g/dL (32-36); Mean Corpuscular Volume 85.6 fL (80-100); Mean Platelet Volume 8.6 fL (7.4-10.4); Platelet Count 512 K/uL (130-400); RDW Standard Deviation 53.2 fL (36.4-46.3); Red Blood Count 3.34 M/uL (4.7-6.1)
[2019-08-19 06:39] LABS: BUN Creatinine Ratio 12.5 (10-20); Calcium 8.9 mg/dl (8.5-10.1); Creatinine Clr Calc Pharmacy 122.5 ml/min; Est GFR (African American) 105.5; Magnesium 1.9 mg/dl (1.8-2.4)
[2019-08-19] MEDS: [UNRECOGNIZED DRUG - REMARK] SCH (07:27)
[2019-08-19] MEDS: ACETAMINOPHEN 325 MG TAB PO PRN (08:34)
[2019-08-19] MEDS: METHADONE HCL 5 MG TAB PO SCH (08:35)
[2019-08-19] MEDS: GABAPENTIN 300 MG CAP PO SCH ×2 (08:36→13:04)
[2019-08-19] MEDS: ASPIRIN 81 MG ECTAB PO SCH (08:36)
[2019-08-19] MEDS: METOPROLOL SUCC 50MG EXT REL TAB PO SCH (08:36)
[2019-08-19] MEDS: LACTOBACILLUS ACIDOPHILUS (FLORANEX) TAB PO SCH ×2 (08:36→13:04)
[2019-08-19] MEDS: CHECK FENTANYL PATCH PLACEMENT SCH (08:37)
[2019-08-19] MEDS: POLYETHYLENE (MIRALAX) 17 GM PACK PO SCH (08:38)
--- NOTE | 2019-08-19 10:54 | Hospitalist Progress Note ---
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 1. Fever and confusion, fever of unknown origin - possible early sepsis with fever, leukocytosis, and confusion - Currently mental status at baseline - In the ER, was given IV Zosyn and IV daptomycin, changed daptomycin to IV vanco as reported cough - Blood cultures -no growth to date - Last admission, COVID was tested and was negative - ID consulted, previously pt did not have echo to eval for poss. endocarditis, also pt had R IJ tunneled line placed in June, prior to fevers ? sources - Blood cultx on previous admission - negative - obtained LE doppler b/l - negative 2. Hyponatremia, sodium 126, last admission sodium was 130. 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 to monitor as outpt 3. History of chronic systolic congestive heart failure with last echo showing EF of 35% to 40%, on metoprolol 25 b.i.d. withholding parameters. Received fluids. Monitor for any volume overload. 4. 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 - Continue his home pain medications. Lastly prescribed by Dr. Perdomo, palliative medicine was consulted on his previous admission. - Currently patient is on methadone, and fentanyl patch, pain is well controlled - Contacted by patient's PCP office, concern for multiple prescribers, want to make sure that Dr. Perdomo is the only prescriber of pain/controlled meds - Discussed with Dr. Perdomo, she plans to follow-up with the patient via telemedicine, also recommended EKG for history of prolonged QTc to review which was obtained - Elevated alkaline phosphatase, most likely secondary to metastatic disease -Patient is supposed to follow-up with Dr. Blank (oncology). Unfortunately had to cancel previous appointments as he was re-admitted to the hospital. His next appointment is next Friday (08/27/2019) and patient is very much looking forward to this appointment to further discuss the plan of care. Opiate-induced constipation - Now resolved - continue MiraLAX as needed, Dulcolax suppository as needed 5. Chronic kidney disease stage III. Avoid nephrotoxic agents. Currently stable. 6. Thrombocytosis, follow the labs. 7. Rheumatoid arthritis, continue Plaquenil. 8. History of atrial fibrillation, rate controlled on metoprolol, not on anticoagulation. 9. Deep venous thrombosis prophylaxis, SCDs for now. 10. Disposition: PT and OT prior to discharge. Social service to help with discharge planning. Patient wishes to be discharged home, this was in detail discussed with him, and case management. Mya from [facility] aware. Also [facility] set up for the patient. Admission and Anticipated Discharge Date Admission Date: August 16, 2019 Subjective Patient is lying in bed, in no acute distress. Currently denies any fevers, chills, chest pain, shortness of breath, abdominal pain. Reports that constipation has resolved, and he had a BM. Discussed his pain management, says that his pain is now much better controlled on fentanyl patch and methadone, prescribed by Dr. Perdomo. I was also contacted by his PCP office, making sure that Dr. Perdomo is to only prescriber for his pain medications. I discussed with Dr. Perdomo, she is planning to follow-up with him via telemedicine. She will also review EKG for QTc, done while admitted. He is inquiring about going home, discussed with him the possible rehab, however he states that he is much more comfortable at home and this already has been discussed between his and Mya, from [facility]. Na 132 stable Remains afebrile ID consulted Blood cultx - negative Review of Systems Review of Systems: All systems reviewed & are unremarkable except as noted in HPI & below Constitutional: no fever and no chills Respiratory: no cough and no dyspnea Cardiovascular: no chest pain, no palpitations and no edema Gastrointestinal: no abdominal pain, no nausea, no vomiting and no constipation Physical Exam Physical Exam: GENERAL: patient id lying in bed, in no acute distress HEENT: NC/AT, Extraocular muscles intact, PERRL NECK: No JVD, no neck masses. Supple. CHEST: Right chest port site clean, no erythema or drainage seen CARDIOVASCULAR: S1, S2 heard, regular rate and rhythm. No murmur, no gallop. RESPIRATORY SYSTEM: No accessory muscle use. CTAB, no wheezing, rhonchi or crackles ABDOMEN: Soft, bowel sounds present, nontender. No distention. Obese. CENTRAL NERVOUS SYSTEM: Alert and oriented x3, speech fluent, no facial symmetry, cranial nerves II-XII grossly intact, nonfocal, moves all 4 extremities spontaneously EXTREMITIES: No LE edema b/l, skin changes consistent with venous stasis de rmatitis SKIN: Warm, dry, venous stasis dermatitis, as above Results & Data Results & Data ([facility]) Vital Signs (Past 12 Hours) Vital Signs Temp Pulse Resp BP BP Pulse Ox 08/19/19 07:43 37.6 C H 91 H 17 152/90 H 95 08/19/19 03:52 37.5 C 85 20 167/94 H 97 08/18/19 23:36 36.9 C 77 20 156/91 H 96 Laboratory Results 08/19/19 08/19/19 08/18/19 Range/Units 05:54 05:54 15:07 WBC 14.60 H (4.8-10.8) K/uL RBC 3.34 L (4.7-6.1) M/uL Hgb 9.0 L (14.0-18.0) g/dL Hct 28.6 L (42-52) % MCV 85.6 (80-100) fL MCH 26.9 (25-34) pg MCHC 31.5 L (32-36) g/dL RDW Std Deviation 53.2 H (36.4-46.3) fL RDW Coeff of Arlyn 17.0 H (11.5-14.5) % Plt Count 512 H (130-400) K/uL MPV 8.6 (7.4-10.4) fL Sodium 132 L 131 L (136-145) mmol/L Potassium 4.0 4.1 (3.5-5.1) mmol/L Chloride 102 102 (98-107) mmol/L Carbon Dioxide 27 28 (21-32) mmol/L Anion Gap 3.0 1.0 L (3-11) BUN 11 10 (7-18) mg/dl Creatinine 0.89 1.01 (0.6-1.4) mg/dl Est Cr Clr Drug Dosing 122.5 108.1 ml/min Est GFR ( Amer) 105.5 91.3 Est GFR (Non-Af Amer) 91.0 78.8 BUN/Creatinine Ratio 12.5 10.3 (10-20) Glucose 84 103 H (70-99) mg/dl Calcium 8.9 8.8 (8.5-10.1) mg/dl Magnesium 1.9 (1.8-2.4) mg/dl Medications Administered Current Inpatient Medications Acetaminophen (Tylenol) 650 mg PO Q4H PRN PRN Reason: Pain or Fever Stop: 09/16/19 01:07 Last Admin: 08/19/19 08:34 Dose: 650 mg Documented by: Aspirin (Ecotrin Ectab) 81 mg PO DAILY [facility] Stop: 09/16/19 08:59 Last Admin: 08/19/19 08:36 Dose: 81 mg Documented by: Bisacodyl (Dulcolax) 10 mg TX DAILY PRN PRN Reason: Constipation Stop: 09/17/19 14:37 Fentanyl (Duragesic) 50 mcg TD Q72H [facility] Stop: 08/31/19 08:59 Last Admin: 08/17/19 09:06 Dose: 50 mcg Documented by: Gabapentin (Neurontin) 600 mg PO BID@0900,1200 [facility] Stop: 09/16/19 08:59 Last Admin: 08/19/19 08:36 Dose: 600 mg Documented by: Gabapentin (Neurontin) 900 mg PO DAILY@2000 [facility] Stop: 09/16/19 19:59 Last Admin: 08/18/19 19:58 Dose: 900 mg Documented by: Heparin Sodium (Porcine) (Heparin Sod 100 Unit/Ml Flush) 5 ml FLUSH PRN PRN PRN Reason: Flush Stop: 09/17/19 08:28 Last Admin: 08/19/19 05:56 Dose: 5 ml Documented by: Sodium Chloride (Nss 1000ml) 1,000 mls @ 100 mls/hr IV .Q10H [facility] Stop: 09/16/19 01:07 Last Infusion: 08/19/19 01:33 Dose: Infused Documented by: Vancomycin HCl 1,750 mg/ (Sodium Chloride) 535 mls @ 200 mls/hr IV Q12H [facility] Stop: 08/19/19 13:59 Last Infusion: 08/19/19 04:56 Dose: Infused Documented by: Lactobacillus Acidophilus (Floranex) 4 tab PO TIDM [facility] Stop: 09/16/19 07:59 Last Admin: 08/19/19 08:36 Dose: 4 tab Documented by: Methadone HCl (Dolophine) 5 mg PO BID [facility] Stop: 08/31/19 08:59 Last Admin: 08/19/19 08:35 Dose: 5 mg Documented by: Metoprolol Succinate (Toprol Xl) 50 mg PO BID [facility] Stop: 09/16/19 08:59 Last Admin: 08/19/19 08:36 Dose: 50 mg Documented by: Miscellaneous (Fentanyl Patch Remove & Waste) 1 ea N/A Q72H [facility] Stop: 09/16/19 08:58 Last Admin: 08/17/19 09:06 Dose: 1 ea Documented by: Miscellaneous (Fentanyl Patch Check Placement) 1 ea N/A QS [facility] Stop: 09/16/19 15:59 Last Admin: 08/19/19 08:37 Dose: 1 ea Documented by: Miscellaneous (Order Awaiting Action) 1 ea N/A QS [facility] Stop: 09/16/19 10:29 Last Admin: 08/19/19 07:27 Dose: Not Given Documented by: Miscellaneous Information (Consult) 1 ea N/A UD PRN PRN Reason: Consult Stop: 09/15/19 20:58 Miscellaneous Information (Consult) 1 ea N/A UD PRN PRN Reason: Consult Stop: 09/16/19 01:49 Morphine Sulfate (Morphine Sulfate Ir) 15 mg PO Q6H PRN PRN Reason: Pain Stop: 08/31/19 01:07 Last Admin: 08/19/19 08:40 Dose: 15 mg Documented by: Nitroglycerin (Nitrostat) 0.4 mg SL UD PRN PRN Reason: Chest Pain Stop: 09/16/19 01:07 Ondansetron HCl (Zofran) 4 mg IV Q6H PRN PRN Reason: Nausea Stop: 09/16/19 01:07 Polyethylene Glycol (Miralax Powder Packet) 17 gm PO TID [facility] Stop: 09/17/19 14:44 Last Admin: 08/19/19 08:38 Dose: Not Given Documented by: Psyllium Hydrophilic Mucilloid (Metamucil) 1 pkt PO DAILY PRN PRN Reason: Diarrhea
--- NOTE | 2019-08-19 11:49 | Discharge Summary ---
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 Cultures were negative. Influenza was negative. COVID-19 test was also performed which was also negative. He was treated with IV antibiotics .He was also in hospital from 07/27 to 08/02 and at that time , blood cultures grew coag negative staph and urine cultures grew Enterococcus, which was treated with daptomycin, completed antibiotics on 08/11/2019. He was discharged to home. Today he got a little confused at home and his was worried he was not answering appropriately, he was not lucid. Thought again sepsis might be coming back and he was brought to the hospital. Here his mental status seemed to be back to baseline, but he spiked temperature to 38.5. His white count is elevated at 17, sodium is 126. Urinalysis negative. Chest x-ray, no acute findings. So again patient is having fever of unknown origin. He has some occasional cough with whitish phlegm. No shortness of breath, no chest pain. No headache. No neck aches, no blurred visions, no earache, no runny nose, no sore throat, no dysphagia. Appetite is okay. He is somewhat constipated from his pain medications. No blood in stools or black stools. No burning micturition, no hematuria. No rash. Currently resting comfortable and hemodynamically stable. He was given Zosyn and daptomycin in the ER. Admission Exam Per Admitting Provider GENERAL: The patient is of moderate build, not in acute distress. VITAL SIGNS: Temperature T-max 38.5, pulse 88, respiratory rate 20, blood pressure 150/98, oxygen 95% on room air. HEENT: No pallor, no icterus. Extraocular muscles intact. NECK: No JVD, no neck masses. Supple. CARDIOVASCULAR: S1, S2 heard, regular rate and rhythm. No murmur, no gallop. RESPIRATORY SYSTEM: Normal AP diameter. No accessory muscle use. No wheezing. No crackles. ABDOMEN: Soft, bowel sounds present, nontender. No distention seen. CENTRAL NERVOUS SYSTEM: Cranial nerves II-XII grossly intact, nonfocal. EXTREMITIES: No edema, no erythema. SKIN: Right chest A-port site clean, no erythema or drainage seen. Principal Diagnosis Fever of unknown origin, most likely tumor related GE junction adenocarcinoma with metastases Hyponatremia Discharge Exam GENERAL: patient id lying in bed, in no acute distress HEENT: NC/AT, Extraocular muscles intact, PERRL NECK: No JVD, no neck masses. Supple. CHEST: Right chest port site clean, no erythema or drainage seen CARDIOVASCULAR: S1, S2 heard, regular rate and rhythm. No murmur, no gallop. RESPIRATORY SYSTEM: No accessory muscle use. CTAB, no wheezing, rhonchi or crackles ABDOMEN: Soft, bowel sounds present, nontender. No distention. Obese. CENTRAL NERVOUS SYSTEM: Alert and oriented x3, speech fluent, no facial symmetry, cranial nerves II-XII grossly intact, nonfocal, moves all 4 extremities spontaneously EXTREMITIES: No LE edema b/l, skin changes consistent with venous stasis dermatitis SKIN: Warm, dry, venous stasis dermatitis, as above Discharge Data Allergies Allergy/AdvReac Type Severity Reaction Status Date / Time No Known Allergies Allergy Verified 08/09/19 11:33 Consultations 08/16/19 23:26 ED Decision to Admit Stat 08/17/19 01:08 Consult Case Management - Discharge Planning Routine 08/17/19 17:55 Consult Infectious Diseases Routine Ordered Studies 08/18/19 14:45 US venous doppler LE BI Routine IMPRESSION: There is no sonographic evidence of deep venous thrombosis identified in the right or left lower extremity. CXR 08/16/2019 IMPRESSION: 1. Emphysematous change with no acute cardiopulmonary abnormality. 2. Numerous pulmonary nodules are consistent with multifocal pulmonary metastatic disease. This was better assessed on the recent chest CT. 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 1. Fever and confusion, fever of unknown origin - possible early sepsis with fever, leukocytosis, and confusion - Currently mental status at baseline - In the ER, was given IV Zosyn and IV daptomycin, changed daptomycin to IV vanco as reported cough - Blood cultures -no growth to date - Last admission, COVID was tested and was negative - ID consulted, previously pt did not have echo to eval for poss. endocarditis, also pt had R IJ tunneled line placed in June, prior to fevers ? sources - Per ID, most likely tumor related fever, given blood cultx negative after 48 hrs, ok to d/c, will rx doxycycline for 7 days and will follow-up on final blood cultures - Also recommend to try naproxen for tumor related fever - Blood cultx on previous admission - negative - obtained LE doppler b/l - negative 2. Hyponatremia, sodium 126, last admission sodium was 130. 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 to monitor as outpt 3. History of chronic systolic congestive heart failure with last echo showing EF of 35% to 40%, on metoprolol 25 b.i.d. withholding parameters. Received fluids. Monitor for any volume overload. 4. 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 - Continue his home pain medications. Lastly prescribed by Dr. Perdomo, palliative medicine was consulted on his previous admission. - Currently patient is on methadone, and fentanyl patch, pain is well controlled - Contacted by patient's PCP office, concern for multiple prescribers, want to make sure that Dr. Perdomo is the only prescriber of pain/controlled meds - Discussed with Dr. Perdomo, she plans to follow-up with the patient via telemedicine, also recommended EKG for history of prolonged QTc to review which was obtained - Elevated alkaline phosphatase, most likely secondary to metastatic disease -Patient is supposed to follow-up with Dr. Blank (oncology). Unfortunately had to cancel previous appointments as he was re-admitted to the hospital. His next appointment is next Friday (08/27/2019) and patient is very much looking forward to this appointment to further discuss the plan of care. Opiate-induced constipation - Now resolved - continue MiraLAX as needed, Dulcolax suppository as needed 5. Chronic kidney disease stage III. Avoid nephrotoxic agents. Currently stable. 6. Thrombocytosis, follow the labs. 7. Rheumatoid arthritis, continue Plaquenil. 8. History of atrial fibrillation, rate controlled on metoprolol, not on anticoagulation. 9. Deep venous thrombosis prophylaxis, SCDs for now. 10. Disposition: PT and OT prior to discharge. Social service to help with discharge planning. Patient wishes to be discharged home, this was in detail discussed with him, and case management. Mya from [facility] aware. Also [facility] home health set up for the patient. Total Time Total Time Spent Total Time Spent (In Minutes): 40 Total Time Includes: Examination of the Patient, Discharge Planning, Medication Reconciliation and Communication With Other Providers Discharge Plan Discharge Items Patient Disposition: Home - Home Health Services Reason For Visit: FEVER, CONFUSION Discharge Diagnosis: Fever of unknown origin, most likely tumor related GE junction adenocarcinoma with metastases Activity: As commented below Non-emergency contact: Primary Care Provider and Oncologist Call non-emergency contact if: you have any medication questions Follow-up/Referrals: Grzegorz Jaquez DO [Primary Care Provider] - 08/25/19 11:20 am Diet: Heart Healthy Fluids: 1500ml (6 cups) Addtl Attending Provider Instructions: Recommend to follow-up with your oncologist, Dr. Blank. Also recommend to follow-up with PCP, regarding your low sodium level. Recommend to check your sodium level in a week. Please follow fluid restriction, 1500 mL of fluid a day. Dr. Perdomo was contacted, and plans to follow-up with you, regarding your pain medications. EKG was obtained during this stay, she will follow-up on that and will see you via telemedicine. Make sure to avoid opiate-induced constipation. You should have at least 1 soft BM a day. Please take [id number] stool softeners such as MiraLAX, as needed. Your preliminary blood cultures are negative. Discussed this with infectious disease physician. Recommend to take doxycycline for 7 days. Please follow-up with your primary care doctor regarding final blood cultures results, or call the hospital. You can also try naproxen for treatment of tumor related fever. Pending Studies at Discharge: Yes Studies:: Final results of blood cultx Stand-Alone Forms: [employer], Smoking Cessation Medications and DC Order Prescriptions: New doxycycline hyclate 100 mg capsule 100 mg PO BID 7 Days Qty: 14 RF: 0 Continued gabapentin 300 mg capsule 600 mg PO .AM&NOON RF: 0 hydroxychloroquine 200 mg tablet 400 mg PO DAILY@1999 RF: 0 polyethylene glycol 3350 [Miralax] 17 gram Powder In Packet 17 g PO DAILY PRN (Reason: constipation) Qty: 30 RF: 0 methadone 5 mg tablet 5 mg PO BID RF: 0 aspirin 81 mg Tablet,Delayed Release (Dr/Ec) 81 mg PO DAILY Qty: 30 RF: 0 naloxone 4 mg/actuation spray,non-aerosol 4 mg intranasal UD PRN (Reason: Opiate Reversal) RF: 0 Metamucil 3.4 gram/5.4 gram Powder 1 tbsp PO DAILY PRN (Reason: Diarrhea) RF: 0 acetaminophen [Tylenol Extra Strength] 500 mg Tablet 1,000 mg PO Q6H RF: 0 gabapentin 300 mg capsule 900 mg PO DAILY@1999 RF: 0 metoprolol succinate 50 mg Tablet Extended Release 24 Hr 50 mg PO BID 30 Days Qty: 60 RF: 0 Lactinex 1 million cell tablet,chewable 1 tab PO TID Qty: 30 RF: 0 fentanyl 50 mcg/hr patch 72 hour 1 patch TD Q72H 10 Days Qty: 3 RF: 0 morphine 15 mg tablet 15 mg PO Q6H PRN (Reason: Pain) 3 Days Qty: 10 RF: 0 Discharge Orders: Discharge Order (Routine); Ordered 08/19/19 Ordered By: Mike Berg Admission Data Admit Date/Time: 08/16/19 23:50 Attending Provider: Mike Berg Admit Provider: Maxime Anaya Primary Care Provider: Grzegorz Jaquez Other Providers: Maxime Anaya ; [facility] ; Bailey Johns ; Yimi Mederos
--- NOTE | 2019-08-26 08:35 | Coding Query ---
CODING QUERY To promote full compliance with coding requirements relating to patient care, provider participation is requested in all cases of data coder operator uncertainty. Please assist us with the question(s) below: Coding Question(s): Please clarify below, in your clinical opinion, regarding documentation of possible early sepsis as it is not clear if this was ruled=out or was still possible. ( x ) Sepsis was ruled-out ( ) Possible Sepsis. Please specify the source of the Sepsis: ( ) Other: Please specify: Physician's Response(s): No infectious source was found for pt's fever. Likely fever d/t tumor. Thank you Bambi Castellano Principal Diagnosis: "that condition established after study, to be chiefly responsible for occasioning the admission of the patient to the hospital for care." Co-Existing Principal Diagnosis: "when two or more diagnoses equally meet the criteria for principal diagnosis as determined by the circumstances of admission, diagnostic work up, and/or therapy provided, and the Alphabetic Index, Tabular List, or another coding guideline does not provide sequencing direction, any one of the diagnoses may be sequenced first." "When the physician has documented what appears to be a current diagnosis in the body of the record, but has not included the diagnosis in the final diagnostic statement, the physician should be asked whether the diagnosis should be added." (Source Coding [facility] 2 QTR90. p3-4) RICK
== END 2019-08-19 15:00 | disposition home health service (06) | DRG 375 ==
LOC: ED 20:32 → SUATTDRO 23:50 → 2N 23:50

== ENCOUNTER 2019-09-04 06:28 | Inpatient (IN) ==
[2019-09-04] MEDS ORDERED: LACTATED RINGER'S 500 ML IV ONE ×2 (06:51→07:49)
[2019-09-04] MEDS ORDERED: PIPERACILLIN/TAZOBACTAM 4.5 GM/120 ML BAG IV ONE (06:55)
[2019-09-04] MEDS ORDERED: ACETAMINOPHEN 1,000 MG/100 ML VIAL IV STA (06:55)
[2019-09-04] MEDS ORDERED: PIPERACILL/TAZOBAC CONSULT ACTIVE PRN (06:55)
[2019-09-04] MEDS ORDERED: VANCOMYCIN CONSULT ACTIVE PRN (06:55)
[2019-09-04] MEDS ORDERED: VANCOMYCIN HCL 2,250 MG in SODIUM CHLORIDE 0.9% 500 ML IV ONE (06:55)
--- NOTE | 2019-09-04 06:55 | Emergency Department Note ---
Impression & Plan Pneumonia, Sepsis, Hypoxia, Fever, AMS (altered mental status) ED Provider Note Provider: Donnell Garcia MD DATE OF SERVICE: 09/04/2019 CHIEF COMPLAINT: Fever, shortness of breath HISTORY OF PRESENT ILLNESS: Patient is a 64-year-old gentleman with a significant history of metastatic esophageal adenocarcinoma with mets to liver and spine, paroxysmal atrial fibrillation not on anticoagulation, ischemic cardiomyopathy, rheumatoid arthritis, anemia, CKD recently hospitalized for fever and confusion several times in July without a clear source presenting today via ambulance with reports of increased shortness of breath and fever and that he is not acting quite right. EMS reported in route the patient was hypotensive in the 80s systolic and febrile to 101 Fahrenheit 88% on room air and tachycardic. Given a liter of fluid prior to arrival. Review of the recent medical record had negative cultures and negative COVID test approximately 2 weeks ago. Patient himself upon arrival does not answer specific question but does groan and move in the bed and occasionally following commands. Was found to be febrile at 39 6 rectally here. Initially placed a call to the listed contact in the chart without answer. Unable to get additional information from the patient. Again EMS reports that overnight he began to have a fever and seems somewhat altered this morning in addition to a cough. EMS did remove fentanyl patch prior to arrival. Medical records indicate that he was seen in the oncology office on August 26 actually had some improvement of his performance status. Palliative chem otherapy was being planned. Review of home nursing shows that on September 01 he communications stating that patient was declining further home nursing care as he was feeling well and doing well and thought he was getting too much care. This is indicative of a somewhat rapid decline as this was only 2 days ago. In for discussion with Miguel reports that he seemed a little more tired and developed a fever last night but then this self resolved. Is more lucid after this round 10 or 11 last night but this morning could not wake. States his pulse ox was low at home. Has not had any morning medicines. She did go out for pharmacy medicines and to the grocery store yesterday but denies that the patient has other sick contacts or travel. Again it seems like he had a fairly sudden onset and decline. She does states that he would be full code at this time. REVIEW OF SYSTEMS LIMITED SECONDARY TO MENTAL STATUS PAST MEDICAL HISTORY MEDICATIONS: Reviewed medication list and includes methadone, morphine as needed, gabapentin, fentanyl patch, aspirin, Plaquenil SOCIAL HISTORY: Lives at home with no additional available from the patient, medical record states no history of substance abuse or smoking. Family history: Diabetes listed in the chart PHYSICAL EXAM: GENERAL: Laying in the bed eyes closed with surgical mask in place Head: normocephalic and atraumatic EYES: No injection, discharge or icterus. PERRL NECK: Trachea midline. Nonmeningeal ENT: Mucous membranes pink and moist. LUNGS: Airway patent. No retractions. Breath sounds rhonchi in the lower bases HEART: Tachycardic rate and regular rhythm. No chest wall tenderness with a right upper chest wall port ABDOMEN: Soft and non-tender, without guarding or rebound. BACK: No bilateral flank tenderness. SKIN: Acyanotic, warm, dry. EXTREMITIES: Trace bilateral pedal edema with some chronic stasis/vascular changes noted on the left lower extremity. Does not appear particularly erythematous. NEUROLOGICAL: Moving all extremities, intermittently following commands and will open his eyes to command. Nonverbal to questioning groans but does occasionally make the statements to leave them alone. EKG: Sinus tachycardia with rate of 122 bpm. No PVCs. No acute ST segment elevation. Nonspecific lateral T wave changes are notable. QTC 581. CONTINUOUS CARDIAC MONITORING: was ordered and showed a heart rate of 112 bpm in sinus tachycardia Patient's hypertension was referred to the hospitalist HOSPITAL COURSE: [id number] Patient was first seen and H&P performed. 0717 Attempted again pt's contact at listed phone numbers - home phone busy. 0725 Discussed with via phone. 0746 patient reassessed from the doorway with nurse in room. Does answer a couple simple questions. Blood pressure has begin to decline. Receiving the LR bolus at this time and received a liter IV fluid. Given reports of some heart failure issues, and a blood pressure of 80 systolic norepinephrine was ordered from the pharmacy. Central access via R upper chest port. [id number] Patient reassessed and updated. Patient was more alert at this time answering questions and acting appropriately. Has expectorated quite a bit of brownish phlegm. Weaned to 3 L of nasal cannula oxygen. Will hold on BiPAP given his improvement. Blood pressure also now 100 systolic, norepinephrine at bedside but not infusing at this time. Given small amount of fentanyl he complains of some urinary discomfort likely related to catheter; denies significant back pain. 0815 discussed with patient's recommendation for further observation here in the hospital. Patient updated as well and the hospitalist will be contacted. Patient's laboratory studies and imaging reviewed. Differential includes Infection, sepsis, hypoglycemia, electrolyte abnorma lities, overdose, toxicologic, cardiac sources, intracerebral event, neurologic, trauma, as well as other pathologies. IMPRESSION/MEDICAL DECISION MAKING: Patient presents febrile with report of some altered mental status worsening cough since last night. History of complex medical conditions including esophageal cancer and sepsis of unknown origin in the past. Did note prior positive urinalysis at the beginning of July. Urine catheter was placed here. Patient unable provide meaningful history. We will continue to attempt to obtain history from family. Hypotensive for EMS improved here but on nasal cannula oxygen still tachycardic. Febrile. Does not appear acutely meningitic at this point. Recent negative COVID testing 08/09/19 reported in the medical record. Given Tylenol, an additional 500 mL of lactated Ringer's to the 1 L normal saline he was received for EMS, Zosyn, vancomycin for broad-spectrum antibiotics with concerns for sepsis. Given the fever infectious etiology is the most likely cause. Not peritoneal and lower suspicion for acute intra- abdominal catastrophe. Given the fact he is verbalized moving all extremities have a somewhat lower suspicion for acute intracranial hemorrhage or stroke. Dense and a large area overlying cellulitis with chronic stasis changes to lower extremities. Did have a phone discussion with who states fairly sudden decline transient improvement last night after fever of 101.8 Fahrenheit around 8 or 9 PM. Patient also states that the patient would be full code. She does state that once he finished his antibiotics at home he seemed a little bit less perky but did not have a sudden decline until today. He has not been traveling outside of his house. EKG shows sinus tachycardia. Catheter urine specimen without particular evidence of infection. Chest x-ray reviewed and radiology report reviewed questioning underlying infiltrate or asymmetric edema in the right lung with congestive change versus bronchitis in the right lung. Laboratory studies do show evidence of persistent leukocytosis, stable anemia, and similar thrombocytosis. VBG shows evidence of mild acidosis and hypercarbia with a CO2 of 61. Slight hyponatremia similar to previous. Renal function at baseline. No evidence of lipase elevation. No bilirubin elevation or ALT elevation, elevation of AST is noted somewhat higher than previous. Wonder if this is related to his oncological process. Lactate is elevated at 2.1. Procalcitonin is elevated. Again received broad-spectrum antibiotics at this point. Patient's blood pressure has begun to decline again and norepinephrine was ordered however just prior to administration he was reassessed and blood pressure has improved ~100 systolic. An additional 500 LR bolus was ordered. Considered BiPAP to assist with mental status and hypercarbia however on reassessment he has significant improvement of his mental status. Discussed with the patient who is now more alert, his , and the hospitalist for further inpatient care given my concerns for sepsis and pneumonia. DIAGNOSIS: Hypoxia, altered mental status, fever, pneumonia, sepsis DISPOSITION: Hospitalist will evaluate for admission Critical Care I have personally spent 38 minutes of critical care time in the direct management of this patient. This includes bedside care, interpretation of diagnostic studies, and testing, discussion with consultants, patient, and family members, and other required patient management activities. These 38 minutes is in excess of all separately billable procedures. 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 Beliefs That Will Affect Care: None marital status: Current Living Situation: Spouse Other Information That Helps Us Care for You: No Feels Safe at Home: Yes Safety Concerns: Feels Safe At This Time Smoking Status: Never smoker Second Hand Exposure: No ; Hx Alcohol Use: Yes Alcohol type: beer and wine Hx Substance Use: No Allergies Allergies Allergy/AdvReac Type Severity Reaction Status Date / Time No Known Allergies Allergy Verified 08/09/19 11:33 Home Meds Home Medications Medication Instructions Recorded Confirmed gabapentin 600 mg PO .AM&NOON 06/14/19 09/04/19 hydroxychloroquine 400 mg PO DAILY@199906/14/19 09/04/19 naloxone 4 mg INTRANASAL UD PRN 06/28/19 09/04/19 Metamucil 1 tbsp PO DAILY PRN 06/30/19 09/04/19 acetaminophen [Tylenol Extra 1,000 mg PO Q6H 07/28/19 09/04/19 Strength] gabapentin 900 mg PO DAILY@199907/28/19 09/04/19 methadone 5 mg PO BID 08/09/19 09/04/19 metoprolol succinate 50 mg PO BID 09/04/19 09/04/19 Previous Rx's Medication Instructions Recorded polyethylene glycol 3350 [Miralax] 17 g PO DAILY PRN #30 ea 06/18/19 Lactinex 1 tab PO TID #30 tab 08/03/19 fentanyl 1 patch TD Q72H 10 Days #3 ea 08/03/19 morphine 15 mg PO Q6H PRN 3 Days #10 tab 08/03/19 aspirin 81 mg PO DAILY #30 tab 08/12/19 Results & Data (ED) Vital Signs Vital Signs - 24 hr 09/04/19 06:37 09/04/19 07:15 09/04/19 08:00 Temperature 39.6 C H Temperature Source Rectal Pulse Rate 124 H Pulse Rate [Apical] 118 H 113 H Pulse Rhythm [Apical] Regular Regular Pulse Strength [Apical] Normal Normal Respiratory Rate 15 18 20 Respiratory Effort / Characteristics Non-Labored Spontaneous Non-Labored Spontaneous Respiratory Depth Normal Normal Respiratory Pattern Regular Regular Blood Pressure 141/83 H Blood Pressure [Left Arm] 85/59 L 100/60 Blood Pressure Mean 102 Blood Pressure Mean [Left Arm] 67 73 Blood Pressure Position [Left Arm] Lying Lying Pulse Oximetry 94 91 92 Oxygen Delivery Method Nasal Cannula Nasal Cannula Nasal Cannula Oxygen Flow Rate 10 4 4 Sepsis Recent Fever Within 48 Hours Yes Sepsis New/Unexplained Change in Mental Status Yes Sepsis Action Taken by Nursing Physician Notified Oxygen Flow Rate - Titration Pulse Oximetry Post Tiitration 09/04/19 08:16 09/04/19 08:30 Temperature 37.2 C Temperature Source Oral Pulse Rate Pulse Rate [Apical] 105 H 105 H Pulse Rhythm [Apical] Regular Regular Pulse Strength [Apical] Normal Normal Respiratory Rate 18 20 Respiratory Effort / Characteristics Non-Labored Spontaneous Non-Labored Spontaneous Respiratory Depth Normal Normal Respiratory Pattern Regular Regular Blood Pressure Blood Pressure [Left Arm] 72/39 L 106/60 Blood Pressure Mean Blood Pressure Mean [Left Arm] 50 75 Blood Pressure Position [Left Arm] Lying Lying Pulse Oximetry 93 95 Oxygen Delivery Method Nasal Cannula Oxymask Oxygen Flow Rate 4 4 Sepsis Recent Fever Within 48 Hours Sepsis New/Unexplained Change in Mental Status Sepsis Action Taken by Nursing Oxygen Flow Rate - Titration 4 Pulse Oximetry Post Tiitration 95 Laboratory Data Result diagrams: 09/04/19 07:18 09/04/19 07:17 Lab Results 09/04/19 09/04/1909/03/20 Range/Units 06:50 07:16 07:16 WBC (4.8-10.8) K/uL RBC (4.7-6.1) M/uL Hgb (14.0-18.0) g/dL Hct (42-52) % MCV (80-100) fL MCH (25-34) pg MCHC (32-36) g/dL RDW Std Deviation (36.4-46.3) fL RDW Coeff of Arlyn (11.5-14.5) % Plt Count (130-400) K/uL MPV (7.4-10.4) fL Immature Gran % (Auto) % Neut % (Auto) % Lymph % (Auto) % [place] % (Auto) % Eos % (Auto) % Baso % (Auto) % Immature Gran # (Auto) (0.00-0.02) K/uL Neut # (Auto) (1.4-6.5) K/uL Lymph # (Auto) (1.2-3.4) K/uL [place] # (Auto) (0.11-0.59) K/uL Eos # (Auto) (0-0.5) K/uL Baso # (Auto) (0-0.2) K/uL PT (9.0-12.0) Seconds INR (0.9-1.1) VBG pH 7.30 L (7.36-7.41) VBG pCO2 61 H (38-50) mmHg VBG pO2 41 mmHg VBG HCO3 29 mmol/L VBG O2 Saturation 67.3 % VBG Base Excess 1.9 mEq/L Barometric Pressure 730.8 mm/Hg Sodium (136-145) mmol/L Potassium (3.5-5.1) mmol/L Chloride (98-107) mmol/L Carbon Dioxide (21-32) mmol/L Anion Gap (3-11) BUN (7-18) mg/dl Creatinine (0.6-1.4) mg/dl Est Cr Clr Drug Dosing Est GFR ( Amer) Est GFR (Non-Af Amer) BUN/Creatinine Ratio (10-20) Glucose (70-99) mg/dl Lactate 2.1 H* (0.4-2.0) mmol/L Calcium (8.5-10.1) mg/dl Magnesium (1.8-2.4) mg/dl Total Bilirubin (0.2-1) mg/dl Direct Bilirubin (0-0.2) mg/dl AST (15-37) U/L ALT (12-78) U/L Alkaline Phosphatase (45-117) U/L Troponin I (0-0.045) ng/ml Total Protein (6.4-8.2) gm/dl Albumin (3.4-5.0) gm/dl Lipase (73-393) U/L Procalcitonin (0-0.5) ng/ml Urine Color Dark Yellow Urine Appearance Clear (Clear) Urine pH 6.0 (4.5-7.5) Ur Specific [place] 1.021 (1.000-1.030) Urine Protein Trace H (Negative) Urine Glucose (UA) Negative (Negative) Urine Ketones Negative (Negative) Urine Blood Negative (Negative) Urine Nitrite Negative (Negative) Urine Bilirubin Negative (Negative) Urine Urobilinogen Negative (Negative) Ur Leukocyte Esterase Negative (Negative) Urine WBC (Auto) 1-5 (0-5) /hpf Urine RBC (Auto) 0-4 (0-4) /hpf U Hyaline Cast (Auto) 1-5 (0-5) /lpf U Epithel Cells (Auto) 20-30 H (0-5) /lpf Urine Bacteria (Auto) Negative (Negative) COVID-19 PCR (Negative) Influenza Type A (PCR) (Neg) Influenza Type B (PCR) (Neg) SARS-CoV-2 RNA (RT-PCR) 09/04/19 09/04/19 09/04/19 Range/Units 07:17 07:17 07:18 WBC 15.81 H (4.8-10.8) K/uL RBC 3.43 L (4.7-6.1) M/uL Hgb 9.6 L (14.0-18.0) g/dL Hct 31.1 L (42-52) % MCV 90.7 (80-100) fL MCH 28.0 (25-34) pg MCHC 30.9 L (32-36) g/dL RDW Std Deviation 61.2 H (36.4-46.3) fL RDW Coeff of Arlyn 18.6 H (11.5-14.5) % Plt Count 554 H (130-400) K/uL MPV 8.9 (7.4-10.4) fL Immature Gran % (Auto) 0.8 % Neut % (Auto) 85.0 % Lymph % (Auto) 4.5 % [place] % (Auto) 8.7 % Eos % (Auto) 0.6 % Baso % (Auto) 0.4 % Immature Gran # (Auto) 0.12 H (0.00-0.02) K/uL Neut # (Auto) 13.44 H (1.4-6.5) K/uL Lymph # (Auto) 0.71 L (1.2-3.4) K/uL [place] # (Auto) 1.38 H (0.11-0.59) K/uL Eos # (Auto) 0.10 (0-0.5) K/uL Baso # (Auto) 0.06 (0-0.2) K/uL PT 13.1 H (9.0-12.0) Seconds INR 1.3 H (0.9-1.1) VBG pH (7.36-7.41) VBG pCO2 (38-50) mmHg VBG pO2 mmHg VBG HCO3 mmol/L VBG O2 Saturation % VBG Base Excess mEq/L Barometric Pressure mm/Hg Sodium 131 L (136-145) mmol/L Potassium 4.7 (3.5-5.1) mmol/L Chloride 96 L (98-107) mmol/L Carbon Dioxide 28 (21-32) mmol/L Anion Gap 8.0 (3-11) BUN 15 (7-18) mg/dl Creatinine 1.07 (0.6-1.4) mg/dl Est Cr Clr Drug Dosing Not Reportable Est GFR ( Amer) 85.2 Est GFR (Non-Af Amer) 73.5 BUN/Creatinine Ratio 13.6 (10-20) Glucose 97 (70-99) mg/dl Lactate (0.4-2.0) mmol/L Calcium 9.4 (8.5-10.1) mg/dl Magnesium 2.0 (1.8-2.4) mg/dl Total Bilirubin 0.8 (0.2-1) mg/dl Direct Bilirubin 0.6 H (0-0.2) mg/dl AST 276 H (15-37) U/L ALT 40 (12-78) U/L Alkaline Phosphatase 1189 H (45-117) U/L Troponin I < 0.015 (0-0.045) ng/ml Total Protein 6.5 (6.4-8.2) gm/dl Albumin 2.1 L (3.4-5.0) gm/dl Lipase 47 L (73-393) U/L Procalcitonin (0-0.5) ng/ml Urine Color Urine Appearance (Clear) Urine pH (4.5-7.5) Ur Specific [place] (1.000-1.030) Urine Protein (Negative) Urine Glucose (UA) (Negative) Urine Ketones (Negative) Urine Blood (Negative) Urine Nitrite (Negative) Urine Bilirubin (Negative) Urine Urobilinogen (Negative) Ur Leukocyte Esterase (Negative) Urine WBC (Auto) (0-5) /hpf Urine RBC (Auto) (0-4) /hpf U Hyaline Cast (Auto) (0-5) /lpf U Epithel Cells (Auto) (0-5) /lpf Urine Bacteria (Auto) (Negative) COVID-19 PCR (Negative) Influenza Type A (PCR) (Neg) Influenza Type B (PCR) (Neg) SARS-CoV-2 RNA (RT-PCR) 09/04/19 09/04/19 09/04/19 Range/Units 07:21 07:30 07:30 WBC (4.8-10.8) K/uL RBC (4.7-6.1) M/uL Hgb (14.0-18.0) g/dL Hct (42-52) % MCV (80-100) fL MCH (25-34) pg MCHC (32-36) g/dL RDW Std Deviation (36.4-46.3) fL RDW Coeff of Arlyn (11.5-14.5) % Plt Count (130-400) K/uL MPV (7.4-10.4) fL Immature Gran % (Auto) % Neut % (Auto) % Lymph % (Auto) % [place] % (Auto) % Eos % (Auto) % Baso % (Auto) % Immature Gran # (Auto) (0.00-0.02) K/uL Neut # (Auto) (1.4-6.5) K/uL Lymph # (Auto) (1.2-3.4) K/uL [place] # (Auto) (0.11-0.59) K/uL Eos # (Auto) (0-0.5) K/uL Baso # (Auto) (0-0.2) K/uL PT (9.0-12.0) Seconds INR (0.9-1.1) VBG pH (7.36-7.41) VBG pCO2 (38-50) mmHg VBG pO2 mmHg VBG HCO3 mmol/L VBG O2 Saturation % VBG Base Excess mEq/L Barometric Pressure mm/Hg Sodium (136-145) mmol/L Potassium (3.5-5.1) mmol/L Chloride (98-107) mmol/L Carbon Dioxide (21-32) mmol/L Anion Gap (3-11) BUN (7-18) mg/dl Creatinine (0.6-1.4) mg/dl Est Cr Clr Drug Dosing Est GFR ( Amer) Est GFR (Non-Af Amer) BUN/Creatinine Ratio (10-20) Glucose (70-99) mg/dl Lactate (0.4-2.0) mmol/L Calcium (8.5-10.1) mg/dl Magnesium (1.8-2.4) mg/dl Total Bilirubin (0.2-1) mg/dl Direct Bilirubin (0-0.2) mg/dl AST (15-37) U/L ALT (12-78) U/L Alkaline Phosphatase (45-117) U/L Troponin I (0-0.045) ng/ml Total Protein (6.4-8.2) gm/dl Albumin (3.4-5.0) gm/dl Lipase (73-393) U/L Procalcitonin 1.69 H (0-0.5) ng/ml Urine Color Urine Appearance (Clear) Urine pH (4.5-7.5) Ur Specific [place] (1.000-1.030) Urine Protein (Negative) Urine Glucose (UA) (Negative) Urine Ketones (Negative) Urine Blood (Negative) Urine Nitrite (Negative) Urine Bilirubin (Negative) Urine Urobilinogen (Negative) Ur Leukocyte Esterase (Negative) Urine WBC (Auto) (0-5) /hpf Urine RBC (Auto) (0-4) /hpf U Hyaline Cast (Auto) (0-5) /lpf U Epithel Cells (Auto) (0-5) /lpf Urine Bacteria (Auto) (Negative) COVID-19 PCR (Negative) Influenza Type A (PCR) Neg for Influ A (Neg) Influenza Type B (PCR) Neg for Influ B (Neg) SARS-CoV-2 RNA (RT-PCR) Cancelled 09/04/19 Range/Units 07:30 WBC (4.8-10.8) K/uL RBC (4.7-6.1) M/uL Hgb (14.0-18.0) g/dL Hct (42-52) % MCV (80-100) fL MCH (25-34) pg MCHC (32-36) g/dL RDW Std Deviation (36.4-46.3) fL RDW Coeff of Arlyn (11.5-14.5) % Plt Count (130-400) K/uL MPV (7.4-10.4) fL Immature Gran % (Auto) % Neut % (Auto) % Lymph % (Auto) % [place] % (Auto) % Eos % (Auto) % Baso % (Auto) % Immature Gran # (Auto) (0.00-0.02) K/uL Neut # (Auto) (1.4-6.5) K/uL Lymph # (Auto) (1.2-3.4) K/uL [place] # (Auto) (0.11-0.59) K/uL Eos # (Auto) (0-0.5) K/uL Baso # (Auto) (0-0.2) K/uL PT (9.0-12.0) Seconds INR (0.9-1.1) VBG pH (7.36-7.41) VBG pCO2 (38-50) mmHg VBG pO2 mmHg VBG HCO3 mmol/L VBG O2 Saturation % VBG Base Excess mEq/L Barometric Pressure mm/Hg Sodium (136-145) mmol/L Potassium (3.5-5.1) mmol/L Chloride (98-107) mmol/L Carbon Dioxide (21-32) mmol/L Anion Gap (3-11) BUN (7-18) mg/dl Creatinine (0.6-1.4) mg/dl Est Cr Clr Drug Dosing Est GFR ( Amer) Est GFR (Non-Af Amer) BUN/Creatinine Ratio (10-20) Glucose (70-99) mg/dl Lactate (0.4-2.0) mmol/L Calcium (8.5-10.1) mg/dl Magnesium (1.8-2.4) mg/dl Total Bilirubin (0.2-1) mg/dl Direct Bilirubin (0-0.2) mg/dl AST (15-37) U/L ALT (12-78) U/L Alkaline Phosphatase (45-117) U/L Troponin I (0-0.045) ng/ml Total Protein (6.4-8.2) gm/dl Albumin (3.4-5.0) gm/dl Lipase (73-393) U/L Procalcitonin (0-0.5) ng/ml Urine Color Urine Appearance (Clear) Urine pH (4.5-7.5) Ur Specific [place] (1.000-1.030) Urine Protein (Negative) Urine Glucose (UA) (Negative) Urine Ketones (Negative) Urine Blood (Negative) Urine Nitrite (Negative) Urine Bilirubin (Negative) Urine Urobilinogen (Negative) Ur Leukocyte Esterase (Negative) Urine WBC (Auto) (0-5) /hpf Urine RBC (Auto) (0-4) /hpf U Hyaline Cast (Auto) (0-5) /lpf U Epithel Cells (Auto) (0-5) /lpf Urine Bacteria (Auto) (Negative) COVID-19 PCR NEGATIVE (Negative) Influenza Type A (PCR) (Neg) Influenza Type B (PCR) (Neg) SARS-CoV-2 RNA (RT-PCR) Administered Medications Piperacillin Sod/Tazobactam (Sod 3.375 gm/ Dextrose) 115 mls @ 28.75 mls/hr IV Q8H [facility]; Protocol Stop: 09/18/19 11:44 Last Admin: 09/04/19 12:21 Dose: 28.8 mls/hr Documented by: [id number] Discontinued Medications Fentanyl Citrate (Fentanyl Citrate) 50 mcg IV NOW STA Stop: 09/04/19 08:03 Last Admin: 09/04/19 08:11 Dose: 50 mcg Documented by: [id number] Lactated Ringer's (Lr) 500 mls @ 999 mls/hr IV .Q31M ONE Stop: 09/04/19 07:21 Last Infusion: 09/04/19 07:57 Dose: 0 mls/hr Documented by: [id number] Admin: 09/04/19 07:27 Dose: 999 mls/hr Documented by: [id number] Acetaminophen (Ofirmev) 1,000 mg in 100 mls @ 400 mls/hr IV NOW STA Stop: 09/04/19 07:09 Last Infusion: 09/04/19 07:41 Dose: 0 mls/hr Documented by: [id number] Admin: 09/04/19 07:19 Dose: 400 mls/hr Documented by: [id number] Piperacillin Sod/Tazobactam Sod (Zosyn) 4.5 gm in 120 mls @ 240 mls/hr IV NOW ONE Stop: 09/04/19 07:24 Last Infusion: 09/04/19 07:54 Dose: 0 mls/hr Documented by: [id number] Admin: 09/04/19 07:24 Dose: 240 mls/hr Documented by: [id number] Vancomycin HCl 2,250 mg/ (Sodium Chloride) 545 mls @ 200 mls/hr IV NOW ONE Stop: 09/04/19 09:38 Last Infusion: 09/04/19 11:06 Dose: 0 mls/hr Documented by: [id number] Admin: 09/04/19 07:40 Dose: 200 mls/hr Documented by: [id number] Norepinephrine Bitartrate 8 mg (/ Dextrose) 508 mls @ 22.117 mls/hr IV .[id number] [facility]; Protocol Stop: 10/04/19 07:59 Last Admin: 09/04/19 11:05 Dose: Not Given Documented by: [id number] Lactated Ringer's (Lr) 500 mls @ 999 mls/hr IV .Q31M ONE Stop: 09/04/19 08:19 Last Infusion: 09/04/19 11:06 Dose: 0 mls/hr Documented by: [id number] Admin: 09/04/19 08:11 Dose: 999 mls/hr Documented by: [id number] Miscellaneous () 1 ea N/A NOW STA Stop: 09/04/19 07:49 Last Admin: 09/04/19 11:06 Dose: Not Given Documented by: [id number] Miscellaneous (Patient's Height And/Or Weight Needed) 1 ea N/A Q2H JANE Stop: 10/04/19 10:59 Last Admin: 09/04/19 11:01 Dose: 1 ea Documented by: [id number] Discharge Plan Visit Data *Final* Discharge Date/Time: 09/04/19 09:54 Chief Complaint: Altered Mental Status Stated Complaint: AMS/SOB ED Provider: Donnell Garcia Discharge Problem: Pneumonia, Sepsis, Hypoxia, Fever, AMS (altered mental status) Patient Disposition: Admitted As Inpatient Condition: Serious Discharge Instructions Interventions: ED Discharge Assessment Last Done: 09/04/19 09:54
[2019-09-04 07:05] LABS: Appearance Urine Clear (Clear); Bacteria Urine Automated Negative (Negative); Blood Urine Negative (Negative); Color Urine Dark Yellow; Epithelial Cell Urine Auto 20-30 /lpf (0-5); Glucose Urine UA Negative (Negative); Ketones Urine Negative (Negative); Leukocyte Esterase Urine Negative (Negative); Nitrite Urine Negative (Negative); Protein Urine Trace (Negative); RBC Urine Automated 0-4 /hpf (0-4); Specific Gravity Urine 1.021 (1.000-1.030); Urobilinogen Urine Negative (Negative)
[2019-09-04 07:19] LABS: Bilirubin Urine Negative (Negative); Ictotest Urine Negative (Negative)
[2019-09-04 07:31] LABS: Basophils # (auto) 0.06 K/uL (0-0.2); Basophils % (auto) 0.4 %; Eosinophils % (auto) 0.6 %; Hematocrit (blood only) 31.1 % (42-52); Hemoglobin 9.6 g/dL (14.0-18.0); Immature Granulocytes # (auto) 0.12 K/uL (0.00-0.02); Immature Granulocytes % (auto) 0.8 %; Lymphocytes # (auto) 0.71 K/uL (1.2-3.4); Lymphocytes % (auto) 4.5 %; Mean Corpuscular Hgb Conc 30.9 g/dL (32-36); Mean Corpuscular Volume 90.7 fL (80-100); Mean Platelet Volume 8.9 fL (7.4-10.4); Monocytes # (auto) 1.38 K/uL (0.11-0.59); Monocytes % (auto) 8.7 %; Neutrophils # (auto) 13.44 K/uL (1.4-6.5); Platelet Count 554 K/uL (130-400); RDW Coefficient of Variation 18.6 % (11.5-14.5); RDW Standard Deviation 61.2 fL (36.4-46.3); Red Blood Count 3.43 M/uL (4.7-6.1); White Blood Count 15.81 K/uL (4.8-10.8)
[2019-09-04 07:31] LABS: Base Excess VBG 1.9 mEq/L; Oxygen Saturation VBG 67.3 %; pH VBG 7.3 (7.36-7.41)
--- NOTE | 2019-09-04 07:36 | XRay Report ---
XR chest 1V portable CLINICAL HISTORY: 64 years-old Male presenting with Sepsis, AMS. TECHNIQUE: Portable semiupright AP view of the chest was obtained. COMPARISON: 08/16/2019 and CTA chest from 08/09/2019.. FINDINGS: Right internal jugular Mediport terminates in the right IJ. Atherosclerosis of the aortic arch. Cardi ac silhouette top normal in size. Differential density of the lungs with added density on the right r elative radiolucency on the left. This is exaggerated from the prior exam. No significant patient rot ation. No differential overlapping soft tissues evident on recent CT. Mild vascular prominence on the right and bronchial wall cuffing on the right. No large effusion or pneumothorax. Osseous structures normal. IMPRESSION: 1. Added density of the right lung in part due to underlying emphysematous changes in the left lung greater than the right, however, an underlying infiltrate or asymmetric edema in the right lung is di fficult to exclude. 2. Congestive change or bronchitis also suspected in the right lung. ACT 112: Negative or not required by law. Electronically signed by: Justin Gtz M.D. 09/04/2019 7:35 AM
[2019-09-04 07:40] LABS: INR 1.3 (0.9-1.1); Prothrombin Time 13.1 Seconds (9.0-12.0)
[2019-09-04] MEDS ORDERED: STAT IV Infusion **Titration per Protocol STA (07:48)
[2019-09-04 07:55] LABS: Alanine Aminotransferase 40 U/L (12-78); Albumin Level 2.1 gm/dl (3.4-5.0); Aspartate Aminotransferase 276 U/L (15-37); BUN Creatinine Ratio 13.6 (10-20); Bilirubin Direct 0.6 mg/dl (0-0.2); Blood Urea Nitrogen 15 mg/dl (7-18); Calcium 9.4 mg/dl (8.5-10.1); Carbon Dioxide 28 mmol/L (21-32); Chloride 96 mmol/L (98-107); Est GFR (African American) 85.2; Est GFR (Non-African American) 73.5; Glucose 97 mg/dl (70-99); Lipase 47 U/L (73-393); Potassium 4.7 mmol/L (3.5-5.1); Sodium 131 mmol/L (136-145)
[2019-09-04] MEDS ORDERED: NOREPINEPHRINE BIT INJ 8 MG in DEXTROSE 5% 500 ML IV SCH (08:00)
[2019-09-04] MEDS ORDERED: fentaNYL citrate 100 MCG/2 ML VIAL IV STA (08:02)
[2019-09-04 08:09] LABS: Alkaline Phosphatase 1189 U/L (45-117); Bilirubin,Total 0.8 mg/dl (0.2-1); Total Protein 6.5 gm/dl (6.4-8.2); Troponin I < 0.015 ng/ml (0-0.045)
[2019-09-04 08:33] LABS: Influenza A virus by PCR Neg for Influ A (Neg); Influenza B virus by PCR Neg for Influ B (Neg)
--- NOTE | 2019-09-04 09:04 | History & Physical Report ---
Date of Service September 04, 2019 Assessment & Plan (1) Sepsis: Improved after resuscitation efforts in the ER this morning, however, still hypotensive and tachycardic, so will continue with IVF now including small bolus and NSS at 150cc/hr. Trend lactate. Uncertain source at this time. Persistent lethargy and known h/o metastatic disease. Will pursue head imaging at this time. Rule out PE as patient is high risk for this. Urine is clear but concentrated and patient appears dehydrated on exam. Abdominal exam is benign. Fever and elevated lactate may also be from heavy tumor burden with encephalopathy 2/2 increased metabolic activity of the spreading disease. Cont broad spectrum abx pending culture results and clinical improvement. Cont hemodynamic support in PCU. (2) Metabolic encephalopathy: poss 2/2 sepsis vs stroke (no focal finding but very lethargic and difficult to exam; has h/o PAF in the past, currently in sinus rhythm) vs metabolic demand from tumor burden. 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 Per oncology, plans to start Taxol and Herceptin within next two weeks which will be palliative. PET and echo to be done first with followup. He is a member of [employer]. (4) Hypoxia: Acute, considerations include but not limited to respiratory infection, acute PE, increased metabolic demand from increased tumor burden. Plan as above. (5) Rheumatoid arthritis: Hold home Plaquenil for now in case of infection. Additionally, patient has prolonged QTc and combination of methadone and plaquenil is not ideal. (6) Prolonged QT interval: Likely drug-induced secondary to combination plaquenil for RA and methadone for pain, which was recently increased to TID. Plaquenil as an immunosuppressant currently being held in setting of sepsis. Cont daily monitoring EKG and check electrolytes daily to ensure adequate stores. (7) Nonischemic cardiomyopathy: Last echo October 2018 revealed a normalized ejection fraction. Management per cardiology as outpatient. Will repeat echo now. (8) Paroxysmal atrial fibrillation: Hx of Eliquis which was stopped after a negative event monitor performed by cardiology. Takes metoprolol regularly. Currently in sinus rhythm. Cont to monitor on telemetry. (9) Anemia: chronic and at baseline. No overt bleeding. Likely secondary to chronic disease. (10) DVT prophylaxis: Lovenox Full Code Dispo-cont PCU monitoring Eliana Cotton DO [facility] Hospitalist History of Present Illness Chief Complaint: fever, confusion Primary Care Provider: Grzegorz Jaquez DO 64 yo M with known h/o metastatic esophageal adenocarcinoma presented to the ER with acute confusion and fever. He was placed on oxygen, for hypoxia and CXR is relatively clear outside of known metastatic disease. The patient was resuscitated in the ER and prehospital with IVF and broad spectrum antibiotics and his confusion cleared. Blood cultures are pending and he remains slightly hypotensive and tachycardic but is responding to fluids. The patient is very fatigued on my exam, frequently falling asleep, however, is able to wake up and orient to give a history. He denies any recent acute fevers, chills, cough, SOB, respiratory or GI symptoms, or pain outside of his known cancer pain. He acutely became ill last night with fevers and confusion despite feeling well yesterday. He has not started treatment for his cancer, and is working with his oncologist to set this up. Allergies Allergy/AdvReac Type Severity Reaction Status Date / Time No Known Allergies Allergy Verified 08/09/19 11:33 Home Medications Home Medications Medication Instructions Recorded Confirmed Type gabapentin 300 mg PO .AM&NOON 06/14/19 09/04/19 History hydroxychloroquine 400 mg PO DAILY@199906/14/19 09/04/19 History polyethylene glycol 3350 [Miralax] 17 g PO DAILY PRN #30 ea 06/18/19 09/04/19 Rx naloxone 4 mg INTRANASAL UD PRN 06/28/19 09/04/19 History Metamucil 1 tbsp PO DAILY PRN 06/30/19 09/04/19 History acetaminophen [Tylenol Extra 1,000 mg PO Q6H 07/28/19 09/04/19 History Strength] gabapentin 600 mg PO DAILY@199907/28/19 09/04/19 History Lactinex 1 tab PO TID #30 tab 08/03/19 09/04/19 Rx fentanyl 1 patch TD Q72H 10 Days #3 ea 08/03/19 09/04/19 Rx morphine 15 mg PO Q6H PRN 3 Days #10 tab 08/03/19 09/04/19 Rx methadone 5 mg PO TID 08/09/19 09/04/19 History aspirin 81 mg PO DAILY #30 tab 08/12/19 09/04/19 Rx metoprolol succinate 50 mg PO BID 09/04/19 09/04/19 History Past Med/Surg History Medical History Acute hypoxemic respiratory failure 06/2018 Afib Recent confinement June 2018 for new diagnosis of heart failure. Paroxysmal A. fib noted during confinement. Patient discharged on Eliquis for anticoagulation.> PT REPORTS NO LONGER ON ELIQUIS> THIS WAS ISOLATED INCIDENT Eliquis discontinued a few months later by street light repairer after outpatient telemetry did not show recurrent AF. Anxiety Atypical chest pain Cancer associated pain (Inactive) Cardiomyopathy Severe LV dysfunction with EF of 30% found on admission June 2018. TTE 11/02/2018 showed resolution of cardiomyopathy with EF greater than 70%. Chronic anemia CKD (chronic kidney disease), stage III Constipation Elevated troponin 06/2018. Cardiac catheterization performed during admission showed severe LV dysfunction with EF of 30% but large-caliber coronaries with minimal irregularities at most. Elevation felt secondary to demand ischemia from cardiomyopathy/fluid overload. GE junction carcinoma GERD (gastroesophageal reflux disease) HX Hypertension Malignant neoplasm of gastroesophageal junction REASON FOR PROCEDURE > RADIATION AT PRESENT Metastatic cancer to spine (Inactive) Nonischemic cardiomyopathy Paroxysmal atrial fibrillation Pathologic compression fracture of lumbar vertebra L5 with retropulsion > W/C AT PRESENT Pneumonia (Acute) 06/2018 Rheumatoid arthritis Surgical History History of cardiac cath JUNE 2018 > FOR C.P/SOB > [facility] > NO STENTS History of tooth extraction Hx of colonoscopy Family History Grandfather (Maternal) Diabetes Social History Preferred Language: Thai Communication Ability: Effective Processing [employer] Supervisor Required: No Beliefs That Will Affect Care: None marital status: Current Living Situation: Spouse Other Information That Helps Us Care for You: No Feels Safe at Home: Yes Safety Concerns: Feels Safe At This Time Smoking Status: Never smoker Second Hand Exposure: No ; Hx Alcohol Use: Yes Alcohol type: beer and wine Hx Substance Use: No Review of Systems Review of Systems: All systems reviewed & are unremarkable except as noted in Subjective Physical Exam Physical Exam: CONSTITUTIONAL: WNWD, vitals as above, generally ill-appearing 2/2 uncontrolled pain. Intermittent lethargy and frequently falling asleep. Difficult to move him around in the bed 2/2 severe pain. EYES: PERRL, normal conjunctivae, no scleral icterus ENT: external ear and nose normal, mucous membranes are dry NECK: trachea midline RESPIRATORY: clear to auscultation bilaterally, no crackles, rales or wheezes, normal respiratory effort. Difficult to auscultate as patient not taking very deep breaths CARDIOVASCULAR: distant heart sounds, regular rate and rhythm, S1 and 2 heard without murmurs, gallops or rubs, no JVD, no peripheral edema GASTROINTESTINAL: soft, nontender, nondistended, no guarding MUSCULOSKELETAL: physically deconditioned and weak, moves all extremities symmetrically SKIN: warm and dry NEUROLOGIC: patellar DTRs -could not elicit as patient is tensing up. PERRL, could not perform EOM of eyes as he wouldn't keep eyes open long enought to test, no facial palsy, no dysarthria. CN 2-12 grossly intact, lethargic PSYCHIATRIC: A&O x 3 when awoken to physical and verbal stimuli but very lethargic and frequently falling asleep. Results & Data Results & Data ([facility]) Vital Signs (Past 12 Hours) Vital Signs Temp Pulse Pulse Resp BP BP Pulse Ox 09/04/19 08:30 105 H 20 106/60 95 09/04/19 08:16 37.2 C 105 H 18 72/39 L 93 09/04/19 08:00 113 H 20 100/60 92 09/04/19 07:15 118 H 18 85/59 L 91 09/04/19 06:37 39.6 C H 124 H 15 141/83 H 94 Laboratory Results Short CBC 09/04/19 Range/Units 07:18 WBC 15.81 H (4.8-10.8) K/uL Hgb 9.6 L (14.0-18.0) g/dL Hct 31.1 L (42-52) % Plt Count 554 H (130-400) K/uL BMP 09/04/19 07:17 Sodium 131 L Potassium 4.7 Chloride 96 L Carbon Dioxide 28 BUN 15 Creatinine 1.07 Glucose 97 Calcium 9.4 Cardiac Enzymes 09/04/19 Range/Units 07:17 Troponin I < 0.015 (0-0.045) ng/ml Liver Function 09/04/19 Range/Units 07:17 Total Bilirubin 0.8 (0.2-1) mg/dl Direct Bilirubin 0.6 H (0-0.2) mg/dl AST 276 H (15-37) U/L ALT 40 (12-78) U/L Alkaline Phosphatase 1189 H (45-117) U/L Albumin 2.1 L (3.4-5.0) gm/dl Urine 09/04/19 Range/Units 06:50 Urine Color Dark Yellow Urine Appearance Clear (Clear) Urine pH 6.0 (4.5-7.5) Ur Specific Holstein 1.021 (1.000-1.030) Urine Protein Trace H (Negative) Urine Glucose (UA) Negative (Negative) Diagnostic Findings XR chest 1V portable CLINICAL HISTORY: 64 years-old Male presenting with Sepsis, AMS. FINDINGS: Right internal jugular Mediport terminates in the right IJ. Atherosclerosis of the aortic arch. Cardiac silhouette top normal in size. Differential density of the lungs with added density on the right relative radiolucency on the left. This is exaggerated from the prior exam. No significant patient rotation. No differential overlapping soft tissues evident on recent CT. Mild vascular prominence on the right and bronchial wall cuffing on the right. No large effusion or pneumothorax. Osseous structures normal. IMPRESSION: 1. Added density of the right lung in part due to underlying emphysematous changes in the left lung greater than the right, however, an underlying infiltrate or asymmetric edema in the right lung is difficult to exclude. 2. Congestive change or bronchitis also suspected in the right lung. Medications Administered Vanc Zosyn 1L LR in ER 700cc NSS in ambulance prehospital Code Status & VTE Plan Code Status Full VTE Prophylaxis Plan VTE Prophylaxis will be ordered: Yes (1) Sepsis Sepsis acute organ dysfunction status: without acute organ dysfunction Sepsis type: sepsis due to unspecified organism Qualified Code(s): A41.9 - Sepsis, u nspecified organism
[2019-09-04] MEDS ORDERED: ACETAMINOPHEN 325 MG TAB PO PRN (10:30)
[2019-09-04] MEDS ORDERED: PATIENT'S HEIGHT AND/OR WEIGHT NEEDED SCH (11:00)
--- NOTE | 2019-09-04 11:42 | Pharmacy Report ---
Pharmacy Abx Initial Consult - Date of Service September 04, 2019 - Pharmacy Dosing Scope Date of Consult: 09/04/2019 Consultation requested by: Dr. Cotton Pharmacy is consulted to initiate vancomycin and Zosyn IV dosing therapy, order appropriate labs and adjust drug dose/frequency. - Subjective The patient is a 64 year old M admitted on 09/04/19 08:59 with fever and confusion. He has had several hospitalizations for this in the past few months. - Objective Height: 6 ft 5 in Weight: 113.1 kg Vital Signs (Past 12hrs): Vital Signs Temp Pulse Pulse Resp BP BP BP 09/04/19 11:02 92/61 L 09/04/19 10:30 37.6 C H 93 H 93 H 18 83/50 L 90/57 L 09/04/19 09:22 99 H 20 86/54 L 09/04/19 08:30 105 H 20 106/60 09/04/19 08:16 37.2 C 105 H 18 72/39 L 09/04/19 08:00 113 H 20 100/60 09/04/19 07:15 118 H 18 85/59 L 09/04/19 06:37 39.6 C H 124 H 15 141/83 H Pulse Ox 09/04/19 11:02 09/04/19 10:30 95 09/04/19 09:22 97 09/04/19 08:30 95 09/04/19 08:16 93 09/04/19 08:00 92 09/04/19 07:15 91 09/04/19 06:37 94 Lab Results (24hrs): Laboratory Tests (24 Hours) 09/04/19 09/04/19 09/04/19 07:21 07:18 07:17 WBC 15.81 H Neut # (Auto) 13.44 H Creatinine 1.07 Est Cr Clr Drug Dosing Not Reportable Procalcitonin 1.69 H Micro Results: 09/04/19 07:23 Aerobic Blood Culture - Pending Blood Anaerobic Blood Culture - Pending 09/04/19 07:15 Aerobic Blood Culture - Pending Blood Anaerobic Blood Culture - Pending - Risk Factors for Resistance * Hospitalization for 48 hours or more within the past 90 days (twice) * Antimicrobial use within the last 90 days (daptomycin IV x 2 weeks for coag negative staph bacteremia and Zosyn x 2 days during each hospitalization) - Assessment & Plan Assessment 64 year old M admitted with fevers and altered mental status Plan vancomycin/Zosyn for treatment of fever of unknown origin Vancomycin IV * Estimated PK Parameters: Vd 0.7 L/kg, Eric 0.09 hr-1, t1/2 7.7 hr * Loading dose: 2250 mg (19.9 mg/kg) * Maintenance dose: 1750 mg IV (15 mg/kg) every 10 hours * Goal trough level for fever of unknown origin : 15 to 20 mcg/mL * Trough ordered for 09/05/19 prior to noon dose Piperacillin/tazobactam * 4.5 g bolus administered over 30 minutes, then 3.375 g IV extended infusion every 8 hours for CrCl greater than 20 mL/min Pharmacy will continue to follow and will adjust dose/frequency as necessary. Thank you.
[2019-09-04] MEDS: PIPERACILLIN/TAZOBACTAM 3.375 GM in DEXTROSE 5% 100 ML IV SCH ×2 (12:21→20:00)
[2019-09-04] MEDS ORDERED: POLYETHYLENE (MIRALAX) 17 GM PACK PO PRN (12:50)
[2019-09-04] MEDS ORDERED: NALOXONE 4 MG INTNAS PRN (12:50)
[2019-09-04] MEDS: MoRPHine SULFATE IR 15 MG TAB (IMMEDIATE RELEASE) PO PRN (13:28)
[2019-09-04] MEDS ORDERED: PSYLLIUM 58.6% POWDER PACKET PO PRN (13:29)
[2019-09-04] MEDS: SODIUM CHLORIDE 0.9% 1000ML 1,000 ML IV SCH (13:39)
[2019-09-04] MEDS ORDERED: SODIUM CHLORIDE 0.9% 1000ML 500 ML IV ONE (13:54)
[2019-09-04] MEDS ORDERED: OPTIRAY 320 125ml IV PRN (15:31)
--- NOTE | 2019-09-04 15:43 | CT Scan Report ---
CT head/brain wo con CLINICAL HISTORY: 64 years-old Male presenting with altered mental status, h/o metastatic cancer. TECHNIQUE: Multidetector CT imaging of the head was performed without the use of intravenous contrast . IV contrast: None. One or more dose lowering techniques were used consistent with the principles of ALARA (as low as reasonably achievable), including automatic exposure control, mA or kV adjustment t o individual patient size, and/or use of iterative reconstruction. COMPARISON: 07/28/2019. CT DOSE (mGy.cm): The estimated cumulative dose is 1713.53. FINDINGS: Live Out Nanny topogram: Unremarkable. Ventricles and sulci normal in size. No hemorrhage. Subcortical frontal predominant white matter hypo attenuation, nonspecific but likely indicative of chronic small vessel ischemic change. No acute terr itorial infarct. No mass effect or midline shift. No extra-axial fluid collection. Paranasal sinuses and mastoid air cells clear. Calvarium intact. IMPRESSION: 1. Mild frontal lobe predominant chronic small vessel ischemic change. No acute intracranial abnorma lity. ACT 112: Negative or not required by law. Electronically signed by: Justin Gtz M.D. 09/04/2019 3:42 PM
--- NOTE | 2019-09-04 15:54 | CT Scan Report ---
CT angio chest PE protocol CLINICAL HISTORY: 64 years-old Male presenting with shortness of breath, atypical chest pain, altered mental status, history metastatic cancer. TECHNIQUE: Multidetector CT angiography of the chest was performed after administration of intravenou s contrast. 3-D volumetric and/or maximum intensity projection (MIP) images were subsequently reconst ructed for review. IV contrast: 119 mL of Optiray 320. One or more dose lowering techniques were used consistent with the principles of ALARA (as low as reasonably achievable), including automatic expos ure control, mA or kV adjustment to individual patient size, and/or use of iterative reconstruction. COMPARISON: 08/09/2019. CT DOSE (mGy.cm): The estimated cumulative dose is 1713.53 mGy.cm. FINDINGS: Proposal Engineer topogram: Unremarkable. Pulmonary vasculature: The study is adequate for assessment of the pulmonary vascular tree. No filling defect within the pul monary arteries to suggest embolus. Main pulmonary artery is not enlarged. No flattening of the inter ventricular septum. No intracardiac filling defect. No reflux of contrast into the hepatic veins. Remaining chest: Soft tissues: Normal thyroid and thoracic inlet. No axillary, supraclavicular, mediastinal, or hilar lymphadenopathy. Normal aorta. Normal heart size. No pericardial or pleural effusion. Diffuse esophag eal distention. Esophageal wall thickening is difficult to exclude. Multiple liver lesions evident th roughout the right and left hepatic lobes resulting in a nodular contour of the liver. These are stab le to more prominent on the current exam. Lungs and airways: No pneumothorax. Bronchial wall thickening in the right lower lobe. Pulmonary eileen gia minimally enlarged relative to adjacent bronchi. The intralobular septal thickening may be prese nt in the right lower lobe. Interval increase in peribronchovascular predominant consolidation in the right lower lobe. Redemonstration of multiple solid pulmonary nodules, an index nodule in the lingul a measuring 7 mm (series 6 image 117), previously 7 mm. A second index nodule in the superior segment of the left lower lobe now measures 10 mm at the series series 6 image 153), previously 7 mm. Appare nt increased size by several millimeters of any of the small nodules (1 to 3 mm increase). Moderate t o severe emphysematous changes most significant in the left upper lobe and lingula. Musculoskeletal: Expansile destructive osseous lesions with extraosseous extension increased from lux or. This is most notable at the lateral right fourth rib, the sternum, and posterior right eighth rib . IMPRESSION: 1. No evidence of pulmonary embolus. 2. Peribronchovascular predominant consolidation in the right lower lobe concerning for pneumonia or aspiration. Less likely, the appearance could relate to lymphangitic carcinomatosis predominant meta stases. 3. Slight interval increase in size of many of the numerous solid pulmonary metastatic nodules (1 to 3 mm increase). Stable appearance of the remainder of the metastatic nodules. 4. Diffuse esophageal dilatation and/or wall thickening. Perhaps this could relate to reflux or esop hagitis. 5. Redemonstration of hepatic metastatic disease. 6. Worsened extraosseous extension of osseous metastatic disease. 7. Emphysema. ACT 112: Negative or not required by law. Electronically signed by: Justin Gtz M.D. 09/04/2019 3:53 PM
[2019-09-04] MEDS: METHADONE HCL 5 MG TAB PO SCH ×2 (16:39→20:51)
[2019-09-04] MEDS: ENOXAPARIN INJ 40 MG/0.4 ML SYR SQ SCH (16:40)
[2019-09-04] MEDS: VANCOMYCIN HCL 1,750 MG in SODIUM CHLORIDE 0.9% 500 ML IV SCH (16:42)
[2019-09-04] MEDS: LACTOBACILLUS ACIDOPHILUS (FLORANEX) TAB PO SCH (19:55)
[2019-09-04] MEDS: GABAPENTIN 600 MG TAB PO SCH (19:56)
[2019-09-04] MEDS: METOPROLOL SUCC 50MG EXT REL TAB PO SCH (19:56)
[2019-09-04] MEDS ORDERED: HYDROXYCHLOROQUINE SULFATE 200 MG TAB PO SCH (20:00)
[2019-09-04] MEDS ORDERED: GABAPENTIN 300 MG CAP PO SCH (20:00)
[2019-09-04] MEDS ORDERED: METHADONE HCL 5 MG TAB PO SCH (20:00)
--- NOTE | 2019-09-04 22:01 | Electrocardiogram Report ---
Test Reason : Blood Pressure : / mmHG Vent. Rate : 122 BPM Atrial Rate : 122 BPM P-R Int : 154 ms QRS Dur : 084 ms QT Int : 408 ms P-R-T Axes : 066 075 084 degrees QTc Int : 581 ms Poor data quality, interpretation may be adversely affected Sinus tachycardia Low voltage QRS Nonspecific ST and T wave abnormality Prolonged QT Abnormal ECG When compared with ECG of 18-AUG-2019 15:38, Vent. rate has increased BY [address]/T wave abnormality is now present in the anterolateral leads QT has lengthened Confirmed by Regan Ortega ([id number]) on 09/04/2019 10:00:43 PM Referred By: REFERRED SELF Confirmed By:Regan Ortega
[2019-09-04] MEDS: HYDROmorphone INJ 0.5 MG/0.5 ML SYR IV PRN (22:07)
[2019-09-05] MEDS: VANCOMYCIN HCL 1,750 MG in SODIUM CHLORIDE 0.9% 500 ML IV SCH ×2 (01:52→11:41)
[2019-09-05] MEDS: SODIUM CHLORIDE 0.9% 1000ML 1,000 ML IV SCH (01:53)
[2019-09-05] MEDS: PIPERACILLIN/TAZOBACTAM 3.375 GM in DEXTROSE 5% 100 ML IV SCH ×3 (04:11→21:12)
[2019-09-05 06:50] LABS: Hematocrit (blood only) 25.8 % (42-52); Hemoglobin 8.2 g/dL (14.0-18.0); Mean Corpuscular Hemoglobin 29.9 pg (25-34); Mean Corpuscular Hgb Conc 31.8 g/dL (32-36); Mean Corpuscular Volume 94.2 fL (80-100); Mean Platelet Volume 9.2 fL (7.4-10.4); Platelet Count 433 K/uL (130-400); RDW Standard Deviation 65.9 fL (36.4-46.3); Red Blood Count 2.74 M/uL (4.7-6.1); White Blood Count 17.18 K/uL (4.8-10.8)
[2019-09-05 07:22] LABS: BUN Creatinine Ratio 12.5 (10-20); Calcium 8.5 mg/dl (8.5-10.1); Creatinine Clr Calc Pharmacy 103.6 ml/min; Est GFR (African American) 89.2; Est GFR (Non-African American) 76.9; Potassium 4.4 mmol/L (3.5-5.1)
[2019-09-05] MEDS ORDERED: GABAPENTIN 300 MG CAP PO SCH (08:00)
[2019-09-05] MEDS: LACTOBACILLUS ACIDOPHILUS (FLORANEX) TAB PO SCH ×3 (08:11→20:43)
[2019-09-05] MEDS: GABAPENTIN 300 MG CAP PO SCH ×2 (08:11→11:46)
[2019-09-05] MEDS: ASPIRIN 81 MG ECTAB PO SCH (08:11)
[2019-09-05] MEDS: METOPROLOL SUCC 50MG EXT REL TAB PO SCH ×2 (08:12→20:45)
[2019-09-05] MEDS: METHADONE HCL 5 MG TAB PO SCH ×3 (09:03→21:10)
[2019-09-05] MEDS: HYDROmorphone INJ 0.5 MG/0.5 ML SYR IV PRN ×4 (09:05→18:12)
[2019-09-05] MEDS ORDERED: VANCOMYCIN TROUGH ONE (11:30)
--- NOTE | 2019-09-05 14:23 | Pharmacy Report ---
Pharmacy Abx Dose Short Note - Date of Service September 05, 2019 - Assessment & Plan Assessment 64 year old M receiving vancomycin and Zosyn for treatment of unknown infection - AMS plus fevers Day # 2 of antimicrobial therapy. Plan Vancomycin * Trough level of 26.9 mcg/mL is supratherapeutic- dose is prior to third maintenance dose/ fourth total dose * Change to vancomycin 1500 mg IV every 12 hours (wait about 12 hours of 1 half- life to receive next dose since patient received half of the noon dose) * Goal trough level for unknown infection : 15 to 20 mcg/mL * Trough ordered for: 09/06/19 prior to 1400 dose (this level is EARLY but just checking that the trough has decreased to therapeutic levels) Pharmacy will continue to follow and will adjust dose/frequency as necessary. Thank you.
--- NOTE | 2019-09-05 15:44 | Hospitalist Progress Note ---
Date of Service September 05, 2019 Assessment & Plan (1) Pneumonia: R lung changes in setting of known metastatic disease likely freight representative of a pneumonia. Vanc and Zosyn started in setting of sepsis 36 hours ago with improvement. Pt denies any coughing or worsening issues with breathing and has been oxygenating well all day. He did spike a high fever today, which I believe is secondary to malignancy. His repeat CXR showed only slight progression of this infiltrate/mets, and this doesn't appear to be clinically significant enough to be the cause of what was witnessed this evening. Blood cultures negative--transition to Augmentin to complete the course. (2) Rigors: I believe what was witnessed this evening was rigors in a person with a temp of 103F who was waking up from a deep sleep under the influence of narcotics. mentioned a similar episode the other night, again when the temp was very high. In setting of known metastatic disease, would like to ensure MRI brain is clear. Will also obtain an EEG and consult neurology to see if they would come to a different conclusion. For now Ibuprofen is being scheduled both to treat the pain more effectively and to treat the fevers. (3) Right ventricular dysfunction: RV dysfunction seen on echo today. The patient appears to be euvolemic and not in acute heart failure. In fact, giving IVF overnight because of the recent rigors and fever event with subsequent elevated CK, lactate, and AST. Oxygenating well but requiring a small amount of oxygen supplementation. Do not feel the small infiltrate on CXR is the entire picture here. Cannot assess is pt has pulmonary HTN, but this may be present from increased metastatic burden causing cor pulmonale. Cardiology consulted for thoughts/recommendations. (4) Sepsis: Resuscitated, cont treatment for pneumonia. Notably, fever as happened today may also be from heavy tumor burden with encephalopathy 2/2 increased metabolic activity of the spreading disease with narcotics in the background. (5) Metabolic encephalopathy: resolved. 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 Per oncology, plans to start Taxol and Herceptin within next two weeks which will be palliative. PET and echo to be done first with followup. He is a member of [employer]. Recent conversations with regarding her wish to seek a second opinion. [place] [facility] [place] Cont Methadone 5mg TID, restart Fentanyl at lower dose 37.5mcg q72h, cont morphine and dilaudid prn breakthrough pain. Start scheduled Ibuprofen 800mg PO TID to more effectively manage the pain without a lot of the toxic encephalopathy associated with narcotics. (7) Hypoxia: Multiple contributers here including pneumonia, diffuse metastatic disease and right heart failure. Some inferior hypokinesis also seen on echo today. Will consult Cardiology to weigh in. (8) Rheumatoid arthritis: Hold home Plaquenil for now in setting of infection. Additionally want to avoid prolonged QTc in setting of methadone. (9) Prolonged QT interval: resolved off the plaquenil (10) Nonischemic cardiomyopathy: Last echo October 2018 revealed a normalized ejection fraction. Preserved EF at this time with some inferior hypokinesis and RV dysfunction. Consult cards. (11) Paroxysmal atrial fibrillation: Hx of Eliquis which was stopped after a negative event monitor performed by cardiology. Takes metoprolol regularly. Currently in sinus rhythm. Cont to monitor on telemetry. (12) Anemia: chronic and at baseline. No overt bleeding. Likely secondary to chronic disease. (13) DVT prophylaxis: Lovenox Full Code Dispo-cont PCU monitoring Eliana Cotton DO [facility] Hospitalist Admission and Anticipated Discharge Date Admission Date: September 04, 2019 Subjective Per nursing staff had a morning of difficult to control pain finally got him comfortable with narcotics, but now he is obtunded. He is requiring significant stimulus to wake up but does awaken. He is grimacing as if he is in pain and grunting. He is oxygenating just fine so will not reverse him and cause discomfort. ROS unable to be obtained as a result. ADDENDUM: called by nursing staff to reevaluate patient. See separate Communication Note. Review of Systems Review of Systems: Unobtainable due to cognitive status Physical Exam Physical Exam: CONSTITUTIONAL: WNWD, vitals as above, obtunded EYES: pupils are equal and round bilaterally, normal conjunctivae, no scleral icterus ENT: external ear and nose normal, mucous membranes are dry NECK: trachea midline RESPIRATORY: clear to auscultation bilaterally, no crackles, rales or wheezes, normal respiratory effort. Difficult to auscultate as patient not taking very deep breaths CARDIOVASCULAR: distant heart sounds, regular rate and rhythm, S1 and 2 heard without murmurs, gallops or rubs, no JVD, no peripheral edema GASTROINTESTINAL: soft, nontender, nondistended MUSCULOSKELETAL: physically deconditioned and weak, moves all extremities symmetrically SKIN: warm and dry NEUROLOGIC: patellar DTRs -could not elicit as patient is tensing up. Not following instructions, unintelligible sounds/moaning. PSYCHIATRIC: obtunded ADDENDUM: after event with rigors and AMS patient was re-evaluated around 9pm. He is alert and oriented x 3, he is calm and pain is under control. He denies any cough or SOB and his breathing is regular. He is not tachycardic and his lungs are clear to auscultation. Limbs are all moving equally and no gross focal neurologic deficit is present. Results & Data Results & Data ([facility]) Vital Signs (Past 12 Hours) Vital Signs Temp Pulse Pulse Resp BP Pulse Ox 09/05/19 11:00 37.3 C 106 H 20 116/73 91 09/05/19 07:06 37.8 C H 114 H 20 99/59 L 91 09/05/19 03:57 37.5 C 109 H 20 106/69 98 Laboratory Results Short CBC 09/05/19 09/05/19 Range/Units 05:58 18:40 WBC 17.18 H 15.82 H (4.8-10.8) K/uL Hgb 8.2 L 8.4 L (14.0-18.0) g/dL Hct 25.8 L 26.9 L (42-52) % Plt Count 433 H 419 H (130-400) K/uL BMP 09/05/19 09/05/19 05:58 18:40 Sodium 134 L 134 L Potassium 4.4 4.3 Chloride 101 102 Carbon Dioxide 25 25 BUN 13 13 Creatinine 1.03 1.02 Glucose 86 91 Calcium 8.5 8.5 Cardiac Enzymes 09/05/19 Range/Units 18:40 Total Creatine Kinase 898 H (39-308) U/L Troponin I < 0.015 (0-0.045) ng/ml Liver Function 09/05/19 09/05/19 Range/Units 18:40 18:40 Total Bilirubin 0.9 Cancelled (0.2-1) mg/dl Direct Bilirubin 0.6 H Cancelled (0-0.2) mg/dl AST 179 H Cancelled (15-37) U/L ALT 26 Cancelled (12-78) U/L Alkaline Phosphatase 912 H Cancelled (45-117) U/L Albumin 1.8 L Cancelled (3.4-5.0) gm/dl Medications Administered Current Inpatient Medications Acetaminophen (Tylenol) 650 mg PO Q4H PRN PRN Reason: Pain or Fever Stop: 10/04/19 10:29 Aspirin (Ecotrin Ectab) 81 mg PO DAILY@0800 [facility] Stop: 10/05/19 07:59 Last Admin: 09/05/19 08:11 Dose: 81 mg Documented by: Enoxaparin Sodium (Lovenox) 40 mg SQ Q24H [facility] Stop: 10/04/19 17:59 Last Admin: 09/04/19 16:40 Dose: 40 mg Documented by: Fentanyl (Duragesic) 25 mcg TD Q3D [facility] Stop: 09/19/19 19:59 Fentanyl (Duragesic) 12 mcg TD Q3D@1999 [facility] Stop: 09/19/19 19:59 Gabapentin (Neurontin) 300 mg PO BID@08 [facility] Stop: 10/05/19 07:59 Last Admin: 09/05/19 11:46 Dose: 300 mg Documented by: Gabapentin (Neurontin) 600 mg PO DAILY@1999 [facility] Stop: 10/04/19 19:59 Last Admin: 09/04/19 19:56 Dose: Not Given Documented by: Heparin Sodium (Porcine) (Heparin Sod 100 Unit/Ml Flush) 5 ml FLUSH PRN PRN PRN Reason: Flush Stop: 10/04/19 23:44 Hydromorphone HCl (Dilaudid) 0.5 mg IV Q30M PRN PRN Reason: severe breakthrough pain Stop: 09/18/19 12:39 Last Admin: 09/05/19 18:12 Dose: 0.5 mg Documented by: Hydroxychloroquine Sulfate (Plaquenil) 400 mg PO DAILY@1999 [facility] Stop: 10/04/19 19:59 Piperacillin Sod/Tazobactam (Sod 3.375 gm/ Dextrose) 115 mls @ 28.75 mls/hr IV Q8H [facility]; Protocol Stop: 09/18/19 11:44 Last Infusion: 09/05/19 14:57 Dose: Infused Documented by: Lactated Ringer's (Lr) 1,000 mls @ 150 mls/hr IV .Q6H40M [facility] Stop: 09/06/19 09:04 Lorazepam (Ativan) 2 mg in 4 mls @ 4 mls/min IV PRN PRN PRN Reason: seizures Stop: 10/05/19 19:43 Ibuprofen (Motrin) 800 mg PO TID [facility] Stop: 10/05/19 20:59 Ioversol (Optiray 320 125ml) 119 ml IV ONCE PRN PRN Reason: Interaction Checking Stop: 09/08/19 15:30 Last Admin: 09/04/19 15:31 Dose: 119 ml Documented by: Lactobacillus Acidophilus (Floranex) 1 tab PO TID@0800,1199,1999 [facility] Stop: 10/04/19 19:59 Last Admin: 09/05/19 11:46 Dose: 1 tab Documented by: Methadone HCl (Dolophine) 5 mg PO TID [facility] Stop: 09/18/19 14:59 Last Admin: 09/05/19 13:39 Dose: 5 mg Documented by: Metoprolol Succinate (Toprol Xl) 50 mg PO BID@799,1999 [facility] Stop: 10/04/19 19:59 Last Admin: 09/05/19 08:12 Dose: 50 mg Documented by: Miscellaneous (Fentanyl Patch Remove & Waste) 1 ea N/A Q3D@1959 [facility] Stop: 10/08/19 19:58 Miscellaneous (Fentanyl Patch Check Placement) 1 ea N/A QS [facility] Stop: 10/06/19 00:00 Miscellaneous Information (Consult) 1 ea N/A UD PRN PRN Reason: Consult Stop: 10/04/19 06:54 Morphine Sulfate (Morphine Sulfate Ir) 15 mg PO Q6H PRN PRN Reason: Pain Stop: 09/18/19 12:49 Last Admin: 09/04/19 13:28 Dose: 15 mg Documented by: Polyethylene Glycol (Miralax Powder Packet) 17 gm PO DAILY PRN PRN Reason: constipation Stop: 10/04/19 12:49 Psyllium Hydrophilic Mucilloid (Metamucil) 1 pkt PO DAILY PRN PRN Reason: Diarrhea Stop: 10/04/19 13:28 (1) Sepsis Sepsis acute organ dysfunction status: without acute organ dysfunction Sepsis type: sepsis due to unspecified organism Qualified Code(s): A41.9 - Sepsis, unspecified organism
[2019-09-05] MEDS ORDERED: ACETAMINOPHEN 1,000 MG/100 ML VIAL IV STA ×2 (17:55→18:34)
[2019-09-05] MEDS ORDERED: LORazepam 2 MG/4 ML VIAL ONE (18:03)
[2019-09-05] MEDS ORDERED: NALOXONE HCL 0.4 MG/1 ML VIAL/CARP ONE (18:04)
[2019-09-05] MEDS ORDERED: NALOXONE HCL 0.4 MG/1 ML VIAL/CARP IV STA (18:08)
[2019-09-05] MEDS ORDERED: LORazepam 1 MG/2 ML VIAL IV STA (18:11)
--- NOTE | 2019-09-05 18:21 | XRay Report ---
XR chest 1V portable CLINICAL HISTORY: Not doing well. History of metastatic disease. COMPARISON STUDY: Chest radiograph and chest CT September 04, 2019. FINDINGS: Cardiomediastinal silhouette is stable. Underlying emphysema is noted. Asymmetric interstit ial thickening and opacities within the right lower lung has slightly increased since prior exam. Mul tiple pulmonary nodules are again noted. Skeletal metastases are again noted. There is no pneumothora x or pleural effusion. Patient is mildly rotated. Right internal jugular [id number] is in place. IMPRESSION: Mild increase in asymmetric airspace opacity and interstitial thickening within the right lung. This favors an infectious process superimposed upon metastatic disease. ACT 112: Negative or not required by law. Electronically signed by: Quincy Spears M.D. 09/05/2019 6:19 PM
--- NOTE | 2019-09-05 18:39 | CT Scan Report ---
CT OF THE HEAD WITHOUT CONTRAST CLINICAL HISTORY: Altered mental status. Lung cancer. COMPARISON STUDY: Head CT July 28, 2019 and September 04, 2019. CT DOSE: 614.27 mGy.cm TECHNIQUE: Helical axial images of the head were obtained without IV contrast. Automated exposure con trol was utilized for the study. A dose lowering technique was utilized adhering to the principles o f ALARA. FINDINGS: This study is mildly compromised by motion artifact. No acute intracranial hemorrhage, midl ine shift or mass effect is present. White matter hypodensities are unchanged and suggest small vesse l disease. The ventricular system is unremarkable. The basilar cisterns are patent. No extra-axial co llections are present. There are no findings to suggest acute dural sinus thrombosis or acute territo rial infarct. No significant calvarial abnormalities are present. Visualized portions of the sinuses and mastoid air cells are clear. IMPRESSION: No acute intracranial findings. No change in appearance of the brain. ACT 112: Negative or not required by law. Electronically signed by: Quincy Spears M.D. 09/05/2019 6:38 PM
[2019-09-05 18:49] LABS: Hematocrit (blood only) 26.9 % (42-52); Hemoglobin 8.4 g/dL (14.0-18.0); Mean Corpuscular Hemoglobin 28.9 pg (25-34); Mean Corpuscular Volume 92.4 fL (80-100); Mean Platelet Volume 8.7 fL (7.4-10.4); Platelet Count 419 K/uL (130-400); RDW Coefficient of Variation 18.7 % (11.5-14.5); RDW Standard Deviation 63.5 fL (36.4-46.3); Red Blood Count 2.91 M/uL (4.7-6.1); White Blood Count 15.82 K/uL (4.8-10.8)
[2019-09-05 18:59] LABS: INR 1.3 (0.9-1.1); Prothrombin Time 13.3 Seconds (9.0-12.0)
[2019-09-05 19:09] LABS: Alanine Aminotransferase 26 U/L (12-78); Albumin Level 1.8 gm/dl (3.4-5.0); Aspartate Aminotransferase 179 U/L (15-37); BUN Creatinine Ratio 12.8 (10-20); Blood Urea Nitrogen 13 mg/dl (7-18); Calcium 8.5 mg/dl (8.5-10.1); Carbon Dioxide 25 mmol/L (21-32); Chloride 102 mmol/L (98-107); Creatinine Clr Calc Pharmacy 104.6 ml/min; Est GFR (African American) 90.2; Est GFR (Non-African American) 77.9; Glucose 91 mg/dl (70-99); Potassium 4.3 mmol/L (3.5-5.1); Sodium 134 mmol/L (136-145)
[2019-09-05 19:14] LABS: Albumin Globulin Ratio 0.4 (0.9-2); Alkaline Phosphatase 912 U/L (45-117); Bilirubin,Total 0.9 mg/dl (0.2-1); Creatine Kinase 898 U/L (39-308); Globulin 4.2 gm/dl (2.5-4.0); Troponin I < 0.015 ng/ml (0-0.045)
[2019-09-05 19:44] LABS: Mean Corpuscular Hgb Conc 31.2 g/dL (32-36)
[2019-09-05] MEDS ORDERED: LORazepam 2 MG/4 ML VIAL IV PRN (19:44)
--- NOTE | 2019-09-05 19:52 | Communication Note ---
Date of Service: September 05, 2019 Evaluated patient around 530pm and he was obtunded after having dilaudid and methadone. I was called back to the bedside by the nurse who was concerned as the patient was awake but unresponsive. His arms and legs were very rigid and stiff and he was somewhat shaky. Retrospectively, this appeared to be rigors as he had visible chills on his skin and was found to be febrile at 39.5C. Was considering Ativan, however, with the confusion in the setting of narcotics, overdose was also considered so he was given Narcan. This improved his mental status and he began to clear up and scream out in pain. He was clutching his right leg, a known source of pain, and he was given some dilaudid at that time. A stroke alert had been called in the midst of this and he received a CXR, bloodwork and 1L NSS was given. He was sent to CT and a CT head was negative for acute intracranial abnormality. He continued to become lucid and neurologic status improved. I discussed the case with Dr. Burks, telestroke neurologist, who didn't feel that she had much else to offer. He was given APAP 1000mg IV and started on Ibuprofen for pain. His fentanyl patch was restarted--this was held yesterday while he was hypotensive in the setting of sepsis. His temp improved to 37.2 and he continued to do well. Short CBC 09/05/19 09/05/19 Range/Units 05:58 18:40 WBC 17.18 H 15.82 H (4.8-10.8) K/uL Hgb 8.2 L 8.4 L (14.0-18.0) g/dL Hct 25.8 L 26.9 L (42-52) % Plt Count 433 H 419 H (130-400) K/uL BMP 09/05/19 09/05/19 05:58 18:40 Sodium 134 L 134 L Potassium 4.4 4.3 Chloride 101 102 Carbon Dioxide 25 25 BUN 13 13 Creatinine 1.03 1.02 Glucose 86 91 Calcium 8.5 8.5 Cardiac Enzymes 09/05/19 Range/Units 18:40 Total Creatine Kinase 898 H (39-308) U/L Troponin I < 0.015 (0-0.045) ng/ml Liver Function 09/05/19 09/05/19 Range/Units 18:40 18:40 Total Bilirubin 0.9 Cancelled (0.2-1) mg/dl Direct Bilirubin Cancelled AST 179 H Cancelled (15-37) U/L ALT 26 Cancelled (12-78) U/L Alkaline Phosphatase 912 H Cancelled (45-117) U/L Albumin 1.8 L Cancelled (3.4-5.0) gm/dl Labwork as above. Lactate, CK and AST elevated were likely a result of the rigors and IVF were continued overnight. Of note, alk phos is up at baseline in setting of metastatic disease. Electrolytes and kidney function was within normal limits and trop was negative. He denied chest pain and EKG demonstrated an undetermined rhythm 2/2 rigors. WBC is 15K but it has been notably elevated at baseline, likely a result of underlying malignancy. The patient's described this same episode occurring at home two days ago, prompting visit to the ER. Although this appears to be rigors in the setting of excessive narcotics, and seizures are considered less likely, he does have metastatic disease from a progressed malignancy. Will obtain MRI brain to ensure no metastatic disease. Will order an EEG in am and obtain a Neurology consultation. Will give Ativan PRN seizure like activity. and daughter were both updated on the events of the evening and all questions answered. Spent approx 45 minutes speaking with family. DO Yury
[2019-09-05] MEDS ORDERED: fentaNYL 25 MCG/HR TDSY TD SCH (20:00)
[2019-09-05] MEDS ORDERED: fentaNYL 12 MCG/HR TDSY TD SCH (20:00)
[2019-09-05 20:02] LABS: Bilirubin Direct 0.6 mg/dl (0-0.2)
[2019-09-05] MEDS: LACTATED RINGER'S 1,000 ML IV SCH (20:44)
[2019-09-05] MEDS: GABAPENTIN 600 MG TAB PO SCH (20:45)
[2019-09-05] MEDS: IBUPROFEN 800 MG TAB PO SCH (21:09)
[2019-09-05] MEDS: ENOXAPARIN INJ 40 MG/0.4 ML SYR SQ SCH (21:17)
[2019-09-05] MEDS: AMOXICILLIN/CLAVULANATE 875 MG TAB PO SCH (21:49)
[2019-09-06] MEDS: CHECK FENTANYL PATCH PLACEMENT SCH ×3 (00:56→17:11)
[2019-09-06] MEDS ORDERED: GADOBUTROL 65ML VIAL IV PRN (01:01)
[2019-09-06] MEDS ORDERED: VANCOMYCIN HCL 1,500 MG in SODIUM CHLORIDE 0.9% 500 ML IV SCH (02:00)
[2019-09-06] MEDS: HYDROmorphone INJ 0.5 MG/0.5 ML SYR IV PRN (02:45)
[2019-09-06] MEDS: LACTATED RINGER'S 1,000 ML IV SCH (04:31)
[2019-09-06 06:08] LABS: Hematocrit (blood only) 27.1 % (42-52); Hemoglobin 8.4 g/dL (14.0-18.0); Mean Corpuscular Hemoglobin 29.2 pg (25-34); Mean Corpuscular Volume 94.1 fL (80-100); Mean Platelet Volume 8.9 fL (7.4-10.4); Platelet Count 396 K/uL (130-400); RDW Coefficient of Variation 18.8 % (11.5-14.5); RDW Standard Deviation 64.5 fL (36.4-46.3); Red Blood Count 2.88 M/uL (4.7-6.1); White Blood Count 13.78 K/uL (4.8-10.8)
[2019-09-06 06:37] LABS: BUN Creatinine Ratio 13.5 (10-20); Calcium 8.8 mg/dl (8.5-10.1); Creatinine Clr Calc Pharmacy 111.3 ml/min; Est GFR (African American) 97.1; Est GFR (Non-African American) 83.8; Potassium 3.8 mmol/L (3.5-5.1)
--- NOTE | 2019-09-06 08:13 | Magnetic Resonance Report ---
MR brain wo/w con HISTORY: 64 years-old Male h/o mets disease, new seizure like activity, acute seizure like activity. COMPARISON: Head CT of same day. TECHNIQUE: Multiplanar and multisequence MRI of the brain was obtained both with and without the use of 11.5 mL Gadavist. FINDINGS: Sales Development Executive localizer images demonstrate no gross extracranial abnormality. Mildly motion degraded exam. Th ere is no restricted diffusion to suggest acute or subacute infarct. Midline structures including the corpus callosum, brainstem, optic chiasm, pituitary and pineal glands appear unremarkable as seen on the sagittal T1 series. There is no cerebellar tonsillar herniation. Degenerative changes are noted about the imaged cervical spine. No acute intracranial hemorrhage, midline shift, abnormal extra-axial collection, hydrocephalus or in tracranial mass identified. Mild age-related involutional changes. Moderate patchy T2/FLAIR hyperinte nsities throughout the white matter suggest chronic microvascular ischemic disease. Major vascular fl ow voids appear patent. Trace mastoid effusions. Minimal mucosal thickening of the paranasal sinuses. Prior bilateral lens replacement. The skull and soft tissues are unremarkable. The bilateral mesial temporal lobes are unremarkable. No acute seizure focus identified. No abnormal intra-axial or extra- axial enhancement. IMPRESSION: 1. Mildly motion degraded exam. No acute intracranial abnormality. 2. Moderate patchy T2/FLAIR hyperintensities throughout the white matter are nonspecific however, are suggestive of chronic microvascular ischemic disease. 3. No abnormal enhancement. ACT 112: Negative or not required by law. The above report was generated using voice recognition software. It may contain grammatical, syntax o r spelling errors. Dictated: 09/06/2019 7:07 AM Transcribed: 09/06/2019 8:08 AM Amanda [id number] Prabhu Electronically signed by: Earl Hebert M.D. 09/06/2019 8:12 AM
[2019-09-06] MEDS: GABAPENTIN 300 MG CAP PO SCH ×2 (08:47→12:09)
[2019-09-06] MEDS: METOPROLOL SUCC 50MG EXT REL TAB PO SCH ×2 (08:48→20:32)
[2019-09-06] MEDS: LACTOBACILLUS ACIDOPHILUS (FLORANEX) TAB PO SCH ×3 (08:48→20:31)
[2019-09-06] MEDS: ASPIRIN 81 MG ECTAB PO SCH (08:49)
[2019-09-06] MEDS ORDERED: PIPERACILL/TAZOBAC CONSULT ACTIVE PRN (08:50)
[2019-09-06] MEDS: IBUPROFEN 800 MG TAB PO SCH ×3 (08:50→20:31)
[2019-09-06] MEDS: METHADONE HCL 5 MG TAB PO SCH ×3 (08:57→20:30)
[2019-09-06] MEDS: AMOXICILLIN/CLAVULANATE 875 MG TAB PO SCH (09:11)
[2019-09-06] MEDS: PIPERACILLIN/TAZOBACTAM 3.375 GM in DEXTROSE 5% 100 ML IV SCH ×2 (09:23→17:11)
--- NOTE | 2019-09-06 10:21 | Infectious Disease Consult ---
Date of Consultation September 06, 2019 Assessment & Plan (1) AMS (altered mental status): due to change in mental status, high risk for aspiration, would suggest continued zosyn for now, can stop vanco, would suggest 7 days total, can change to augmentin upon d/c. History of Present Illness Attending Physician: Jaren Quintanilla MD pt admitted with lethargy/change in mental status. required O2 in ER, CTA done, negative for PE RLL aspiration vs metastatic disease. has known GI metastatic malignancy. no fevers today. wbc improved to 13. on zosyn and vanco, vanco on hold due to level 26 today. UA negative, COVID and flu negative, MRI brain negative for acute findings.blood cultures negative. Allergies Allergy/AdvReac Type Severity Reaction Status Date / Time No Known Allergies Allergy Verified 08/09/19 11:33 Home Medications Home Medications Medication Instructions Recorded Confirmed Type gabapentin 300 mg PO .AM&NOON 06/14/19 09/04/19 History hydroxychloroquine 400 mg PO DAILY@199906/14/19 09/04/19 History polyethylene glycol 3350 [Miralax] 17 g PO DAILY PRN #30 ea 06/18/19 09/04/19 Rx naloxone 4 mg INTRANASAL UD PRN 06/28/19 09/04/19 History Metamucil 1 tbsp PO DAILY PRN 06/30/19 09/04/19 History acetaminophen [Tylenol Extra 1,000 mg PO Q6H 07/28/19 09/04/19 History Strength] gabapentin 600 mg PO DAILY@199907/28/19 09/04/19 History Lactinex 1 tab PO TID #30 tab 08/03/19 09/04/19 Rx fentanyl 1 patch TD Q72H 10 Days #3 ea 08/03/19 09/04/19 Rx morphine 15 mg PO Q6H PRN 3 Days #10 tab 08/03/19 09/04/19 Rx methadone 5 mg PO TID 08/09/19 09/04/19 History aspirin 81 mg PO DAILY #30 tab 08/12/19 09/04/19 Rx metoprolol succinate 50 mg PO BID 09/04/19 09/04/19 History Patient History Medical History Acute hypoxemic respiratory failure 06/2018 Afib Recent confinement June 2018 for new diagnosis of heart failure. Paroxysmal A. fib noted during confinement. Patient discharged on Eliquis for anticoagulation.> PT REPORTS NO LONGER ON ELIQUIS> THIS WAS ISOLATED INCIDENT Eliquis discontinued a few months later by potato loader after outpatient telemetry did not show recurrent AF. Anxiety Atypical chest pain Cancer associated pain (Inactive) Cardiomyopathy Severe LV dysfunction with EF of 30% found on admission June 2018. TTE 11/02/2018 showed resolution of cardiomyopathy with EF greater than 70%. Chronic anemia CKD (chronic kidney disease), stage III Constipation Elevated troponin 06/2018. Cardiac catheterization performed during admission showed severe LV dysfunction with EF of 30% but large-caliber coronaries with minimal irregularities at most. Elevation felt secondary to demand ischemia from cardiomyopathy/fluid overload. GE junction carcinoma GERD (gastroesophageal reflux disease) HX Hypertension Malignant neoplasm of gastroesophageal junction REASON FOR PROCEDURE > RADIATION AT PRESENT Metastatic cancer to spine (Inactive) Nonischemic cardiomyopathy Paroxysmal atrial fibrillation Pathologic compression fracture of lumbar vertebra L5 with retropulsion > W/C AT PRESENT Pneumonia (Acute) 06/2018 Rheumatoid arthritis Surgical History History of cardiac cath JUNE 2018 > FOR C.P/SOB > [facility] > NO STENTS History of tooth extraction Hx of colonoscopy Family History Grandfather (Maternal) Diabetes Social History Preferred Language: Georgian Communication Ability: Effective Sap Senior Developer Required: No Beliefs That Will Affect Care: None marital status: Current Living Situation: Spouse Other Information That Helps Us Care for You: No Feels Safe at Home: Yes Safety Concerns: Feels Safe At This Time Smoking Status: Never smoker Second Hand Exposure: No ; Hx Alcohol Use: Yes Alcohol type: beer and wine Hx Substance Use: No Review of Systems Review of Systems: per h&p Results & Data ([facility]) Vital Signs (Past 12 Hours) Vital Signs Temp Pulse Pulse Resp BP Pulse Ox 09/06/19 07:53 36.5 C 77 18 117/71 96 09/06/19 02:53 36.6 C 75 20 114/74 98 09/05/19 23:40 102 H Laboratory Results Microbiology 09/04/19 07:15 Blood Aerobic Blood Culture - Preliminary No growth in Aerobic bottle after 48 hours. 09/04/19 07:15 Blood Anaerobic Blood Culture - Preliminary No growth in Anaerobic bottle after 48 hours. 09/04/19 07:23 Blood Aerobic Blood Culture - Preliminary No growth in Aerobic bottle after 48 hours. 09/04/19 07:23 Blood Anaerobic Blood Culture - Preliminary No growth in Anaerobic bottle after 48 hours. PG Care Time/CCT Total # of Minutes Spent Total Time Spent with Patient: Total time spent is greater than 50% in coordination of care (as documented) at patient's floor/unit and/or counseling patient: Coding Level of Care Code 18436 Inpt Consult Level 2 Diagnoses AMS (altered mental status) R40.4 Altered mental status type: transient alteration of awareness (1) AMS (altered mental status) Altered mental status type: transient alteration of awareness Qualified Code(s): R40.4 - Transient alteration of awareness
[2019-09-06] MEDS: PROMETHAZINE HCL 12.5 MG in SODIUM CHLORIDE 0.9% 50 ML IV PRN ×2 (12:53→20:50)
[2019-09-06] MEDS ORDERED: VANCOMYCIN TROUGH ONE (13:30)
--- NOTE | 2019-09-06 14:25 | Hospitalist Progress Note ---
Date of Service September 06, 2019 Assessment & Plan (1) Pneumonia: possible Health care associated vs Aspiration presented with sepsis syndrome received IV Vanco and Zosyn afebrile since except for last night CT chest: 1. No evidence of pulmonary embolus. 2. Peribronchovascular predominant consolidation in the right lower lobe concerning for pneumonia or aspiration. Less likely, the appearance could relate to lymphangitic carcinomatosis predominant metastases. 3. Slight interval increase in size of many of the numerous solid pulmonary metastatic nodules (1 to 3 mm increase). Stable appearance of the remainder of the metastatic nodules. 4. Diffuse esophageal dilatation and/or wall thickening. Perhaps this could relate to reflux or esophagitis. 5. Redemonstration of hepatic metastatic disease. 6. Worsened extraosseous extension of osseous metastatic disease. 7. Emphysema. Blood cultures: negative so far Sputum culture: pending Procalcitonin elevated -- resume Zosyn IV Day 3/7 -- speech therap eval: pending monitor closely (2) Rigors: from fever? -- management of pneumonia as above started on Ibuprofen q8h for possible tumor related fever r/o underlying Seizure disorder? -- Brain MRI: 1. Mildly motion degraded exam. No acute intracranial abnormality. 2. Moderate patchy T2/FLAIR hyperintensities throughout the white matter are nonspecific however, are suggestive of chronic microvascular ischemic disease. 3. No abnormal enhancement. -- EEG pending -- Neurologist consulted (3) Right ventricular dysfunction: RV dysfunction seen on echo appears euvolemic Cardiology consulted for thoughts/recommendations (4) Metabolic encephalopathy: resolved. (5) Metastatic adenocarcinoma to bone: per Dr. 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 Per oncology, plans to start Taxol and Herceptin within next two weeks which will be palliative. PET and echo to be done first with followup. He is a member of [employer]. Recent conversations with regarding her wish to seek a second opinion. She is planning to try and see someone at [facility]. Cont Methadone 5mg TID, restart Fentanyl at lower dose 37.5mcg q72h, cont morphine prn breakthrough pain. Start scheduled Ibuprofen 800mg PO TID to more effectively manage the pain without a lot of the toxic encephalopathy associated with narcotics. -- D/C Dilaudid for now to avoid AMS pain well controlled so far (6) Hypoxia: Multiple contributors here including pneumonia, diffuse metastatic disease and right heart failure. -- management of above conditions as noted above (7) Rheumatoid arthritis: Hold home Plaquenil for now in setting of infection. Additionally want to avoid prolonged QTc in setting of methadone. (8) Prolonged QT interval: resolved off the plaquenil (9) Nonischemic cardiomyopathy: Last echo October 2018 revealed a normalized ejection fraction. Preserved EF at this time with some inferior hypokinesis and RV dysfunction. Consult cards. euvolemic today (10) Paroxysmal atrial fibrillation: Hx of Eliquis which was stopped after a negative event monitor performed by cardiology. Takes metoprolol regularly. Currently in sinus rhythm. Cont to monitor on telemetry. (11) Anemia: chronic and at baseline. No overt bleeding. Likely secondary to chronic disease. (12) DVT prophylaxis: Lovenox Full Code Dispo-cont PCU monitoring Admission and Anticipated Discharge Date Admission Date: September 04, 2019 Subjective ff up for fever, confusion, metastatic GE junction AdenoCA to liver, lungs, spine seen sitting up in bed, having breakfast oriented x 3, comfortable, pleasant states he feels better today compared to yesterday minimal pain on his hips has occasional cough, with yellow sputum occasional sensation of food stuck on his esophagus denies headache, dizziness, abdominal pain no BM yet denies other symptoms Review of Systems Review of Systems: All systems reviewed & are unremarkable except as noted in HPI & below Physical Exam Physical Exam: General- oriented x 3, not in distress, speaks in sentences with no effort or accessory muscle use Eyes- anicteric Neck- no JVD Lungs- clear breath sounds bilaterally, no rales/wheezes Port on right chest wall: no signs of infection Heart- normal rate, regular rhythm; no murmurs Abdomen- normal bowel sounds, nondistended, soft, nontender Extremities- no pretibial edema, no calf tenderness Neuro- alert, oriented x 3; no gross focal neurologic deficits Skin- warm & dry Results & Data Results & Data ([facility]) Vital Signs (Past 12 Hours) Vital Signs Temp Pulse Resp BP Pulse Ox 09/06/19 11:18 36.4 C L 76 18 108/71 97 09/06/19 07:53 36.5 C 77 18 117/71 96 09/06/19 02:53 36.6 C 75 20 114/74 98 Laboratory Results Laboratory Results - last 24 hr 09/05/19 09/05/19 09/05/19 17:51 18:40 18:40 WBC 15.82 H RBC 2.91 L Hgb 8.4 L Hct 26.9 L MCV 92.4 MCH 28.9 MCHC 31.2 L RDW Std Deviation 63.5 H RDW Coeff of Arlyn 18.7 H Plt Count 419 H MPV 8.7 PT 13.3 H INR 1.3 H Sodium Potassium Chloride Carbon Dioxide Anion Gap BUN Creatinine Est Cr Clr Drug Dosing Est GFR ( Amer) Est GFR (Non-Af Amer) BUN/Creatinine Ratio Glucose POC Glucose 86 Lactate Calcium Total Bilirubin Direct Bilirubin AST ALT Alkaline Phosphatase Total Creatine Kinase Troponin I Total Protein Albumin Globulin Albumin/Globulin Ratio 09/05/19 09/05/19 09/05/19 18:40 18:40 18:40 WBC RBC Hgb Hct MCV MCH MCHC RDW Std Deviation RDW Coeff of Arlyn Plt Count MPV PT INR Sodium 134 L Potassium 4.3 Chloride 102 Carbon Dioxide 25 Anion Gap 7.0 BUN 13 Creatinine 1.02 Est Cr Clr Drug Dosing 104.6 Est GFR ( Amer) 90.2 Est GFR (Non-Af Amer) 77.9 BUN/Creatinine Ratio 12.8 Glucose 91 POC Glucose Lactate 2.1 H* Calcium 8.5 Total Bilirubin 0.9 Cancelled Direct Bilirubin 0.6 H Cancelled AST 179 H Cancelled ALT 26 Cancelled Alkaline Phosphatase 912 H Cancelled Total Creatine Kinase 898 H Troponin I < 0.015 Total Protein 6.0 L Cancelled Albumin 1.8 L Cancelled Globulin 4.2 H Albumin/Globulin Ratio 0.4 L 09/05/19 09/06/19 09/06/19 20:50 05:22 05:22 WBC 13.78 H RBC 2.88 L Hgb 8.4 L Hct 27.1 L MCV 94.1 MCH 29.2 MCHC 31.0 L RDW Std Deviation 64.5 H RDW Coeff of Arlyn 18.8 H Plt Count 396 MPV 8.9 PT INR Sodium 134 L Potassium 3.8 Chloride 100 Carbon Dioxide 27 Anion Gap 7.0 BUN 13 Creatinine 0.96 Est Cr Clr Drug Dosing 111.3 Est GFR ( Amer) 97.1 Est GFR (Non-Af Amer) 83.8 BUN/Creatinine Ratio 13.5 Glucose 102 H POC Glucose Lactate 1.4 Calcium 8.8 Total Bilirubin Direct Bilirubin AST ALT Alkaline Phosphatase Total Creatine Kinase 812 H Troponin I Total Protein Albumin Globulin Albumin/Globulin Ratio
--- NOTE | 2019-09-06 15:51 | Cardiology Consultation ---
Date of Consultation September 06, 2019 Assessment & Plan (1) Right ventricular dysfunction: New finding. Likely represents progressive pulmonary pathology. Unclear whether this is due to active pneumonia versus further metastatic disease. No further cardiac intervention indicated at this time. Would recommend avoiding decrease of preload (2) Pneumonia: (3) Metastatic adenocarcinoma to bone: (4) Cancer related pain: (5) Paroxysmal atrial fibrillation: History of Present Illness Attending Physician: Jaren Quintanilla MD Allergies Allergy/AdvReac Type Severity Reaction Status Date / Time No Known Allergies Allergy Verified 08/09/19 11:33 Home Medications Home Medications Medication Instructions Recorded Confirmed Type gabapentin 300 mg PO .AM&NOON 06/14/19 09/04/19 History hydroxychloroquine 400 mg PO DAILY@199906/14/19 09/04/19 History polyethylene glycol 3350 [Miralax] 17 g PO DAILY PRN #30 ea 06/18/19 09/04/19 Rx naloxone 4 mg INTRANASAL UD PRN 06/28/19 09/04/19 History Metamucil 1 tbsp PO DAILY PRN 06/30/19 09/04/19 History acetaminophen [Tylenol Extra 1,000 mg PO Q6H 07/28/19 09/04/19 History Strength] gabapentin 600 mg PO DAILY@199907/28/19 09/04/19 History Lactinex 1 tab PO TID #30 tab 08/03/19 09/04/19 Rx fentanyl 1 patch TD Q72H 10 Days #3 ea 08/03/19 09/04/19 Rx morphine 15 mg PO Q6H PRN 3 Days #10 tab 08/03/19 09/04/19 Rx methadone 5 mg PO TID 08/09/19 09/04/19 History aspirin 81 mg PO DAILY #30 tab 08/12/19 09/04/19 Rx metoprolol succinate 50 mg PO BID 09/04/19 09/04/19 History Patient History Medical History Acute hypoxemic respiratory failure 06/2018 Afib Recent confinement June 2018 for new diagnosis of heart failure. Paroxysmal A. fib noted during confinement. Patient discharged on Eliquis for anticoagulation.> PT REPORTS NO LONGER ON ELIQUIS> THIS WAS ISOLATED INCIDENT Eliquis discontinued a few months later by steamer blocker after outpatient telemetry did not show recurrent AF. Anxiety Atypical chest pain Cancer associated pain (Inactive) Cardiomyopathy Severe LV dysfunction with EF of 30% found on admission June 2018. TTE 11/02/2018 showed resolution of cardiomyopathy with EF greater than 70%. Chronic anemia CKD (chronic kidney disease), stage III Constipation Elevated troponin 06/2018. Cardiac catheterization performed during admission showed severe LV dysfunction with EF of 30% but large-caliber coronaries with minimal irregularities at most. Elevation felt secondary to demand ischemia from cardiomyopathy/fluid overload. GE junction carcinoma GERD (gastroesophageal reflux disease) HX Hypertension Malignant neoplasm of gastroesophageal junction REASON FOR PROCEDURE > RADIATION AT PRESENT Metastatic cancer to spine (Inactive) Nonischemic cardiomyopathy Paroxysmal atrial fibrillation Pathologic compression fracture of lumbar vertebra L5 with retropulsion > W/C AT PRESENT Pneumonia (Acute) 06/2018 Rheumatoid arthritis Surgical History History of cardiac cath JUNE 2018 > FOR C.P/SOB > [facility] > NO STENTS History of tooth extraction Hx of colonoscopy Family History Grandfather (Maternal) Diabetes Social History Preferred Language: Khmer Communication Ability: Effective 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
[2019-09-06] MEDS: ENOXAPARIN INJ 40 MG/0.4 ML SYR SQ SCH (17:14)
--- NOTE | 2019-09-06 17:55 | Neurology Consultation ---
Date of Consultation September 06, 2019 Assessment & Plan (1) Encephalopathy: A 64 year old male with transient episode of encephalopathy likely secondary to opiate administration. Patient appears very euphoric this afternoon which is likely secondary to the pain medications. MRI brain showed no evidence of metastatic disease. Low suspicion for seizure. Recommend monitoring clinically for now and agree with avoiding excessive pain medications. 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 He is on Methadone and had been recieving Dilaudid for pain in the hospital. He was noted to have been of unresponiveness and appeared stiff. Noted to have rigors. He denies any known history of seizure or no unexplained LOC. Episode yesterday occurred around 1730 after recieving dilaudid and metadone. MRI of the brain was performed and showed no evidence of metastatic disease. Allergies Allergy/AdvReac Type Severity Reaction Status Date / Time No Known Allergies Allergy Verified 08/09/19 11:33 Home Medications Home Medications Medication Instructions Recorded Confirmed Type gabapentin 300 mg PO .AM&NOON 06/14/19 09/04/19 History hydroxychloroquine 400 mg PO DAILY@199906/14/19 09/04/19 History polyethylene glycol 3350 [Miralax] 17 g PO DAILY PRN #30 ea 06/18/19 09/04/19 Rx naloxone 4 mg INTRANASAL UD PRN 06/28/19 09/04/19 History Metamucil 1 tbsp PO DAILY PRN 06/30/19 09/04/19 History acetaminophen [Tylenol Extra 1,000 mg PO Q6H 07/28/19 09/04/19 History Strength] gabapentin 600 mg PO DAILY@199907/28/19 09/04/19 History Lactinex 1 tab PO TID #30 tab 08/03/19 09/04/19 Rx fentanyl 1 patch TD Q72H 10 Days #3 ea 08/03/19 09/04/19 Rx morphine 15 mg PO Q6H PRN 3 Days #10 tab 08/03/19 09/04/19 Rx methadone 5 mg PO TID 08/09/19 09/04/19 History aspirin 81 mg PO DAILY #30 tab 08/12/19 09/04/19 Rx metoprolol succinate 50 mg PO BID 09/04/19 09/04/19 History Patient History Medical History Acute hypoxemic respiratory failure 06/2018 Afib Recent confinement June 2018 for new diagnosis of heart failure. Paroxysmal A. fib noted during confinement. Patient discharged on Eliquis for anticoagulation.> PT REPORTS NO LONGER ON ELIQUIS> THIS WAS ISOLATED INCIDENT Eliquis discontinued a few months later by log roper after outpatient telemetry did not show recurrent AF. Anxiety Atypical chest pain Cancer associated pain (Inactive) Cardiomyopathy Severe LV dysfunction with EF of 30% found on admission June 2018. TTE 11/02/2018 showed resolution of cardiomyopathy with EF greater than 70%. Chronic anemia CKD (chronic kidney disease), stage III Constipation Elevated troponin 06/2018. Cardiac catheterization performed during admission showed severe LV dysfunction with EF of 30% but large-caliber coronaries with minimal irregularities at most. Elevation felt secondary to demand ischemia from cardiomyopathy/fluid overload. GE junction carcinoma GERD (gastroesophageal reflux disease) HX Hypertension Malignant neoplasm of gastroesophageal junction REASON FOR PROCEDURE > RADIATION AT PRESENT Metastatic cancer to spine (Inactive) Nonischemic cardiomyopathy Paroxysmal atrial fibrillation Pathologic compression fracture of lumbar vertebra L5 with retropulsion > W/C AT PRESENT Pneumonia (Acute) 06/2018 Rheumatoid arthritis Surgical History History of cardiac cath JUNE 2018 > FOR C.P/SOB > [facility] > NO STENTS History of tooth extraction Hx of colonoscopy Family History Grandfather (Maternal) Diabetes Social History Preferred Language: Kyrgyz Communication Ability: Effective Manager Biostatistics Required: No Beliefs That Will Affect Care: None marital status: Current Living Situation: Spouse Other Information That Helps Us Care for You: No Feels Safe at Home: Yes Safety Concerns: Feels Safe At This Time Smoking Status: Never smoker Second Hand Exposure: No ; Hx Alcohol Use: Yes Alcohol type: beer and wine Hx Substance Use: No Physical Exam Physical Exam: Awake and using the computer. is on the phone. Patient appears very europhic and referecing a dream he had at length. His speech is clear although tangential . He is following commands. Moving all 4 extremties. No tongue abrasion. No hippus. Face symmetric. Results & Data Vital Signs (Past 12 Hours) Vital Signs Temp Pulse Resp BP Pulse Ox 09/06/19 15:23 36.6 C 86 18 135/82 98 09/06/19 11:18 36.4 C L 76 18 108/71 97 09/06/19 07:53 36.5 C 77 18 117/71 96
[2019-09-06] MEDS: GABAPENTIN 600 MG TAB PO SCH (20:31)
--- NOTE | 2019-09-06 22:05 | Electrocardiogram Report ---
Test Reason : Blood Pressure : / mmHG Vent. Rate : 127 BPM Atrial Rate : 127 BPM P-R Int : 176 ms QRS Dur : 078 ms QT Int : 358 ms P-R-T Axes : 033 042 084 degrees QTc Int : 520 ms Poor data quality, interpretation may be adversely affected Possible Sinus tachycardia Low voltage QRS Nonspecific T wave abnormality Abnormal ECG When compared with ECG of 05-SEP-2019 07:03, No significant change Confirmed by Regan Ortega ([id number]) on 09/06/2019 10:04:44 PM Referred By: REFERRED SELF Confirmed By:Regan Ortega
--- NOTE | 2019-09-06 22:30 | Communication Note ---
Date of Service: September 06, 2019 Patient noted to have increased confusion as per RN. AP Encephalopathy Likely secondary to narcotic/neuropsychotropic medications for worsening cancer pain Hold Fentanyl patch for now. Resume once mentation back to baseline. Hold parameters gabapentin for sedation confusion Await palliative care input to help assist in establishment of goals of care given cancer progression.
--- NOTE | 2019-09-06 22:48 | Electrocardiogram Report ---
Test Reason : Blood Pressure : / mmHG Vent. Rate : 072 BPM Atrial Rate : 000 BPM P-R Int : 000 ms QRS Dur : 082 ms QT Int : 384 ms P-R-T Axes : 000 042 062 degrees QTc Int : 420 ms Normal sinus rhythm Low voltage QRS Cannot rule out Anteroseptal infarct , age undetermined Abnormal ECG When compared with ECG of 05-SEP-2019 17:57, HR has decreased by 55 bpm Confirmed by Regan Ortega ([id number]) on 09/06/2019 10:48:06 PM Referred By: REFERRED SELF Confirmed By:Regan Ortega
[2019-09-06 22:52] LABS: Appearance Urine Cloudy (Clear); Bacteria Urine Automated Negative (Negative); Blood Urine Trace (Negative); Color Urine Dark Yellow; Epithelial Cell Urine Auto >30 /lpf (0-5); Glucose Urine UA Negative (Negative); Ketones Urine Negative (Negative); Leukocyte Esterase Urine Negative (Negative); Nitrite Urine Negative (Negative); Protein Urine 2+ (Negative); Specific Gravity Urine 1.026 (1.000-1.030); Urobilinogen Urine Negative (Negative); pH Urine 5.5 (4.5-7.5)
[2019-09-06 23:06] LABS: Bilirubin Urine Negative (Negative); Ictotest Urine Negative (Negative)
[2019-09-06 23:10] LABS: Uric Acid Crystals Urine Present (None Prsent)
[2019-09-06 23:20] LABS: Base Excess ABG 0.1 mEq/L (-9-1.8); HCO3 ABG 26 mmol/L (19-24); Oxygen Saturation ABG 96.8 % (90-95); PCO2 ABG 48 mmHg (35-46); PO2 ABG 94 mmHg (80-95); pH ABG 7.35 (7.35-7.45)
[2019-09-06 23:24] LABS: Allen Test POS (Pos)
[2019-09-06 23:32] LABS: Albumin Level 1.8 gm/dl (3.4-5.0); BUN Creatinine Ratio 13.4 (10-20); Creatinine Clr Calc Pharmacy 124.3 ml/min; Est GFR (Non-African American) 92.3; Potassium 3.8 mmol/L (3.5-5.1)
[2019-09-06 23:34] LABS: Albumin Globulin Ratio 0.4 (0.9-2); Bilirubin,Total 1.2 mg/dl (0.2-1); Globulin 4.4 gm/dl (2.5-4.0); Total Protein 6.2 gm/dl (6.4-8.2)
[2019-09-07] MEDS: GABAPENTIN 600 MG TAB PO SCH (00:38)
[2019-09-07] MEDS: METOPROLOL SUCC 50MG EXT REL TAB PO SCH ×3 (00:39→19:30)
[2019-09-07] MEDS ORDERED: KETOROLAC TROMETHAMINE 15 MG/ML VIAL IV ONE (00:56)
[2019-09-07] MEDS: HEPARIN 100 UNIT/ML 5ML FLUSH FLUSH PRN (02:16)
[2019-09-07] MEDS: PIPERACILLIN/TAZOBACTAM 3.375 GM in DEXTROSE 5% 100 ML IV SCH ×3 (02:28→18:52)
[2019-09-07 07:35] LABS: Creatinine Clr Calc Pharmacy 140.6 ml/min; Est GFR (African American) 112.5; Est GFR (Non-African American) 97.1
[2019-09-07] MEDS: ASPIRIN 81 MG ECTAB PO SCH (08:20)
[2019-09-07] MEDS: GABAPENTIN 300 MG CAP PO SCH ×3 (08:20→19:29)
[2019-09-07] MEDS: IBUPROFEN 800 MG TAB PO SCH ×3 (08:20→21:20)
[2019-09-07] MEDS: LACTOBACILLUS ACIDOPHILUS (FLORANEX) TAB PO SCH ×3 (08:20→19:29)
[2019-09-07] MEDS: METHADONE HCL 5 MG TAB PO SCH ×3 (09:16→21:20)
[2019-09-07] MEDS ORDERED: PROMETHAZINE HCL 6.25 MG in SODIUM CHLORIDE 0.9% 50 ML IV PRN (10:30)
[2019-09-07 11:14] LABS: BUN Creatinine Ratio 13.4 (10-20); Calcium 8.5 mg/dl (8.5-10.1); Creatinine Clr Calc Pharmacy 140.6 ml/min; Est GFR (African American) 112.5; Est GFR (Non-African American) 97.1; Potassium 3.9 mmol/L (3.5-5.1)
--- NOTE | 2019-09-07 13:09 | Gastrointestinal Consultation ---
Date of Consultation September 07, 2019 Assessment & Plan (1) Nausea: 64 year old male with metastatic esophageal cancer diagnosed in May admitted w/ altered mental status/fevers on Zosyn/Vanco for pneumonia. He reports issues with constipation/bloating and notes intermittent episodes of dysphagia post/prandial vomiting over the past week. Notes he tolerated PO intake well yesterday but vomited food after lunch today. Denies any foreign body sensation, inability to tolerate secretions or further discomfort - NPO - KUB - CMP, lipase - If KUB clear would recommend a bowel regimen for constipation - Continue Antiemetics PRN and analgesia PRN - Pending results of KUB, he is agreeable to repeat EGD to rule out progressive disease Thank you for allowing us to participate in the care of this patient. Please call with any acute changes, questions or concerns. Please see addendum below w ith additional recommendation from my supervising physician. History of Present Illness Reason for Consultation: vomiting, metastatic eso cancer Requesting Physician: Dwight Attending Physician: Jaern Quintanilla MD History of Present Illness 64 year old male with known metastatic esophageal adenocarcinoma who presented through the ED w/ altered mental status, confusion, fever admitted w/ suspected pneumonia - GI asked to evaluate for vomiting. Due to COVID-19 concerns, initial consultation took place over the telephone. He notes since diagnosis he was referred to [facility] but yet to start palliative chemo/radiation therapy. Suggests that from a GI standpoint he had been feeling well until about 4/5 days ago. Intermittent epsiodes of constipation and vomiting. Suggests some pain with swallowing and some difficulty with swallowing intermittent but this has become more prominent this past week as well. Suggests he ate breakfast/lunch/dinner last evening with ease. Tolerate breakfast this AM and then after lunch he had some emesis - this was food. No bile. No black/bloody emesis. Since this episodes has been tolerate sips, secretions. Denies any current pain and is resting comfortable. EGD 05/2019: likely malignant tumor at [facility] Allergies Allergy/AdvReac Type Severity Reaction Status Date / Time No Known Allergies Allergy Verified 08/09/19 11:33 Home Medications Home Medications Medication Instructions Recorded Confirmed Type gabapentin 300 mg PO .AM&NOON 06/14/19 09/04/19 History hydroxychloroquine 400 mg PO DAILY@199906/14/19 09/04/19 History polyethylene glycol 3350 [Miralax] 17 g PO DAILY PRN #30 ea 06/18/19 09/04/19 Rx naloxone 4 mg INTRANASAL UD PRN 06/28/19 09/04/19 History Metamucil 1 tbsp PO DAILY PRN 06/30/19 09/04/19 History acetaminophen [Tylenol Extra 1,000 mg PO Q6H 07/28/19 09/04/19 History Strength] gabapentin 600 mg PO DAILY@199907/28/19 09/04/19 History Lactinex 1 tab PO TID #30 tab 08/03/19 09/04/19 Rx fentanyl 1 patch TD Q72H 10 Days #3 ea 08/03/19 09/04/19 Rx morphine 15 mg PO Q6H PRN 3 Days #10 tab 08/03/19 09/04/19 Rx methadone 5 mg PO TID 08/09/19 09/04/19 History aspirin 81 mg PO DAILY #30 tab 08/12/19 09/04/19 Rx metoprolol succinate 50 mg PO BID 09/04/19 09/04/19 History Patient History Medical History Acute hypoxemic respiratory failure 06/2018 Afib Recent confinement June 2018 for new diagnosis of heart failure. Paroxysmal A. fib noted during confinement. Patient discharged on Eliquis for anticoagulation.> PT REPORTS NO LONGER ON ELIQUIS> THIS WAS ISOLATED INCIDENT Eliquis discontinued a few months later by manager global after outpatient telemetry did not show recurrent AF. Anxiety Atypical chest pain Cancer associated pain (Inactive) Cardiomyopathy Severe LV dysfunction with EF of 30% found on admission June 2018. TTE 11/02/2018 showed resolution of cardiomyopathy with EF greater than 70%. Chronic anemia CKD (chronic kidney disease), stage III Constipation Elevated troponin 06/2018. Cardiac catheterization performed during admission showed severe LV dysfunction with EF of 30% but large-caliber coronaries with minimal irregularities at most. Elevation felt secondary to demand ischemia from cardiomyopathy/fluid overload. GE junction carcinoma GERD (gastroesophageal reflux disease) HX Hypertension Malignant neoplasm of gastroesophageal junction REASON FOR PROCEDURE > RADIATION AT PRESENT Metastatic cancer to spine (Inactive) Nonischemic cardiomyopathy Paroxysmal atrial fibrillation Pathologic compression fracture of lumbar vertebra L5 with retropulsion > W/C AT PRESENT Pneumonia (Acute) 06/2018 Rheumatoid arthritis Surgical History History of cardiac cath JUNE 2018 > FOR C.P/SOB > [facility] > NO STENTS History of tooth extraction Hx of colonoscopy Family History Grandfather (Maternal) Diabetes Social History Preferred Language: Norwegian Communication Ability: Effective Management Coordinator Required: No Beliefs That Will Affect Care: None marital status: Current Living Situation: Spouse Other Information That Helps Us Care for You: No Feels Safe at Home: Yes Safety Concerns: Feels Safe At This Time Smoking Status: Never smoker Second Hand Exposure: No ; Hx Alcohol Use: Yes Alcohol type: beer and wine Hx Substance Use: No Review of Systems Constitutional: denies fever chills weakness Respiratory: denies productive cough or SOB Cardiovascular: Additional Comments: denies CP Gastrointestinal: denies current abd pain but report some bloating. Reports constipation. No black or bloody stools. No current epigastric pain, esophageal pain, inability to tolerate PO but did have emesis after lunch. No black or bloody emesis reported. Results & Data ([facility]) Vital Signs (Past 12 Hours) Vital Signs Temp Pulse Resp BP BP Pulse Ox 09/07/19 12:13 36.8 C 89 18 121/73 98 09/07/19 07:53 36.6 C 80 18 128/79 98 09/07/19 04:00 36.6 C 74 20 97/62 L 96 Laboratory Results 09/07/19 09/07/19 09/06/19 Range/Units 06:44 06:39 22:51 ABG pH 7.35 (7.35-7.45) ABG pCO2 48 H (35-46) mmHg ABG pO2 94 (80-95) mmHg ABG HCO3 26 H (19-24) mmol/L ABG O2 Saturation 96.8 H (90-95) % ABG Base Excess 0.1 (-9-1.8) mEq/L Adrien Test POS (Pos) Barometric Pressure 733.6 mm/Hg Oxygen Given 4 L Sodium 138 (136-145) mmol/L Potassium 3.9 (3.5-5.1) mmol/L Chloride 104 (98-107) mmol/L Carbon Dioxide 27 (21-32) mmol/L Anion Gap 7.0 (3-11) BUN 10 (7-18) mg/dl Creatinine 0.76 0.76 (0.6-1.4) mg/dl Est Cr Clr Drug Dosing 140.6 140.6 ml/min Est GFR ( Amer) 112.5 112.5 Est GFR (Non-Af Amer) 97.1 97.1 BUN/Creatinine Ratio 13.4 (10-20) Glucose 64 L (70-99) mg/dl POC Glucose (70-99) mg/dl Calcium 8.5 (8.5-10.1) mg/dl Magnesium (1.8-2.4) mg/dl Total Bilirubin (0.2-1) mg/dl AST (15-37) U/L ALT (12-78) U/L Alkaline Phosphatase (45-117) U/L Ammonia (11-32) umol/L Total Protein (6.4-8.2) gm/dl Albumin (3.4-5.0) gm/dl Globulin (2.5-4.0) gm/dl Albumin/Globulin Ratio (0.9-2) Urine Color Urine Appearance (Clear) Urine pH (4.5-7.5) Ur Specific Dinosaur (1.000-1.030) Urine Protein (Negative) Urine Glucose (UA) (Negative) Urine Ketones (Negative) Urine Blood (Negative) Urine Nitrite (Negative) Urine Bilirubin (Negative) Urine Urobilinogen (Negative) Ur Leukocyte Esterase (Negative) Urine WBC (Auto) (0-5) /hpf Urine RBC (Auto) (0-4) /hpf U Hyaline Cast (Auto) (0-5) /lpf U Epithel Cells (Auto) (0-5) /lpf Urine Bacteria (Auto) (Negative) Ur Renal Epithelial Cell Uric Acid Crystals (None Prsent) Granular Casts (0) /lpf 09/06/19 09/06/19 09/06/19 Range/Units 22:51 22:51 22:36 ABG pH (7.35-7.45) ABG pCO2 (35-46) mmHg ABG pO2 (80-95) mmHg ABG HCO3 (19-24) mmol/L ABG O2 Saturation (90-95) % ABG Base Excess (-9-1.8) mEq/L Adrien Test (Pos) Barometric Pressure mm/Hg Oxygen Given Sodium 136 (136-145) mmol/L Potassium 3.8 (3.5-5.1) mmol/L Chloride 101 (98-107) mmol/L Carbon Dioxide 28 (21-32) mmol/L Anion Gap 7.0 (3-11) BUN 12 (7-18) mg/dl Creatinine 0.86 (0.6-1.4) mg/dl Est Cr Clr Drug Dosing 124.3 ml/min Est GFR ( Amer) 107.0 Est GFR (Non-Af Amer) 92.3 BUN/Creatinine Ratio 13.4 (10-20) Glucose 84 (70-99) mg/dl POC Glucose (70-99) mg/dl Calcium 9.0 (8.5-10.1) mg/dl Magnesium 2.0 (1.8-2.4) mg/dl Total Bilirubin 1.2 H (0.2-1) mg/dl AST 140 H (15-37) U/L ALT 27 (12-78) U/L Alkaline Phosphatase 949 H (45-117) U/L Ammonia < 10.0 L (11-32) umol/L Total Protein 6.2 L (6.4-8.2) gm/dl Albumin 1.8 L (3.4-5.0) gm/dl Globulin 4.4 H (2.5-4.0) gm/dl Albumin/Globulin Ratio 0.4 L (0.9-2) Urine Color Dark Yellow Urine Appearance Cloudy A (Clear) Urine pH 5.5 (4.5-7.5) Ur Specific Dinosaur 1.026 (1.000-1.030) Urine Protein 2+ H (Negative) Urine Glucose (UA) Negative (Negative) Urine Ketones Negative (Negative) Urine Blood Trace H (Negative) Urine Nitrite Negative (Negative) Urine Bilirubin Negative (Negative) Urine Urobilinogen Negative (Negative) Ur Leukocyte Esterase Negative (Negative) Urine WBC (Auto) 10-30 H (0-5) /hpf Urine RBC (Auto) 10-30 H (0-4) /hpf U Hyaline Cast (Auto) 5-10 H (0-5) /lpf U Epithel Cells (Auto) >30 H (0-5) /lpf Urine Bacteria (Auto) Negative (Negative) Ur Renal Epithelial Cell Not Reportable Uric Acid Crystals Present A (None Prsent) Granular Casts 5-10 H (0) /lpf 09/06/19 Range/Units 22:33 ABG pH (7.35-7.45) ABG pCO2 (35-46) mmHg ABG pO2 (80-95) mmHg ABG HCO3 (19-24) mmol/L ABG O2 Saturation (90-95) % ABG Base Excess (-9-1.8) mEq/L Adrien Test (Pos) Barometric Pressure mm/Hg Oxygen Given Sodium (136-145) mmol/L Potassium (3.5-5.1) mmol/L Chloride (98-107) mmol/L Carbon Dioxide (21-32) mmol/L Anion Gap (3-11) BUN (7-18) mg/dl Creatinine (0.6-1.4) mg/dl Est Cr Clr Drug Dosing ml/min Est GFR ( Amer) Est GFR (Non-Af Amer) BUN/Creatinine Ratio (10-20) Glucose (70-99) mg/dl POC Glucose 80 (70-99) mg/dl Calcium (8.5-10.1) mg/dl Magnesium (1.8-2.4) mg/dl Total Bilirubin (0.2-1) mg/dl AST (15-37) U/L ALT (12-78) U/L Alkaline Phosphatase (45-117) U/L Ammonia (11-32) umol/L Total Protein (6.4-8.2) gm/dl Albumin (3.4-5.0) gm/dl Globulin (2.5-4.0) gm/dl Albumin/Globulin Ratio (0.9-2) Urine Color Urine Appearance (Clear) Urine pH (4.5-7.5) Ur Specific Dinosaur (1.000-1.030) Urine Protein (Negative) Urine Glucose (UA) (Negative) Urine Ketones (Negative) Urine Blood (Negative) Urine Nitrite (Negative) Urine Bilirubin (Negative) Urine Urobilinogen (Negative) Ur Leukocyte Esterase (Negative) Urine WBC (Auto) (0-5) /hpf Urine RBC (Auto) (0-4) /hpf U Hyaline Cast (Auto) (0-5) /lpf U Epithel Cells (Auto) (0-5) /lpf Urine Bacteria (Auto) (Negative) Ur Renal Epithelial Cell Uric Acid Crystals (None Prsent) Granular Casts (0) /lpf
--- NOTE | 2019-09-07 13:10 | Hospitalist Progress Note ---
Date of Service September 07, 2019 Assessment & Plan (1) Pneumonia: possible Health care associated vs Aspiration presented with sepsis syndrome received IV Vanco and Zosyn afebrile since except for last night CT chest: 1. No evidence of pulmonary embolus. 2. Peribronchovascular predominant consolidation in the right lower lobe concerning for pneumonia or aspiration. Less likely, the appearance could relate to lymphangitic carcinomatosis predominant metastases. 3. Slight interval increase in size of many of the numerous solid pulmonary metastatic nodules (1 to 3 mm increase). Stable appearance of the remainder of the metastatic nodules. 4. Diffuse esophageal dilatation and/or wall thickening. Perhaps this could relate to reflux or esophagitis. 5. Redemonstration of hepatic metastatic disease. 6. Worsened extraosseous extension of osseous metastatic disease. 7. Emphysema. Blood cultures: negative so far Sputum culture: pending Procalcitonin elevated -- continue Zosyn IV Day 4/7 ID consulted -- speech therapy eval: no aspiration noted patient has recurrent vomiting since yesterday GI consulted, for EGD tomorrow in light of gastroesophageal adenocarcinoma diagnosed May 2019 monitor closely (2) Rigors: from fever? -- management of pneumonia as above started on Ibuprofen q8h for possible tumor related fever Low suspicion for Seizure disorder -- Brain MRI: 1. Mildly motion degraded exam. No acute intracranial abnormality. 2. Moderate patchy T2/FLAIR hyperintensities throughout the white matter are nonspecific however, are suggestive of chronic microvascular ischemic disease. 3. No abnormal enhancement. -- Neurologist consulted (3) Metabolic encephalopathy: likely multifactorial: from Pneumonia -- management as above from pain medications -- follows with Dr. Perdomo for pain management related to Bone Mets, she is consulted on the case Fentanyl reduced from 50 to 25mcg Gabapentin being tapered down, now 300mg daily Methadone 5mg TID continued continue usual Morphine PO Ibuprofen 800mg TID added from Phenergan? -- dose reduced avoiding Zofran, Reglan to prevent QT prolongation as patient already on Methadone (4) Metastatic adenocarcinoma to bone: per Dr. 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 Per oncology, plans to start Taxol and Herceptin within next two weeks which will be palliative. PET and echo to be done first with followup. He is a member of [employer]. Recent conversations with regarding her wish to seek a second opinion. She is planning to try and see someone at [facility]. Cont Methadone 5mg TID, restart Fentanyl at lower dose 37.5mcg q72h, cont morphine prn breakthrough pain. -- for EGD tomorrow given recurrent vomiting while admitted. NPO except meds -- patient would like to establish with [facility] service for 2nd opinion consult placed (5) Right ventricular dysfunction: RV dysfunction seen on echo appears euvolemic Cardiology consulted--> avoid worsening of preload, no further intervention at this time (6) Hypoxia: Multiple contributors here including pneumonia, diffuse metastatic disease and right heart failure. -- management of above conditions as noted above -- wean off oxygen supplement accordingly (7) Rheumatoid arthritis: Hold home Plaquenil for now in setting of infection. Additionally want to avoid prolonged QTc in setting of methadone. -- discussed with Dr. Stuart, may hold Plaquenil until antibiotics completed (8) Prolonged QT interval: resolved off the plaquenil monitor (9) Nonischemic cardiomyopathy: Last echo October 2018 revealed a normalized ejection fraction. Preserved EF at this time with some inferior hypokinesis and RV dysfunction. -- euvolemic (10) Paroxysmal atrial fibrillation: Hx of Eliquis which was stopped after a negative event monitor performed by cardiology. Takes metoprolol regularly. Currently in sinus rhythm. (11) Anemia: chronic and at baseline. No overt bleeding. Likely secondary to chronic disease. (12) DVT prophylaxis: Lovenox Full Code Disposition lives with at home has not been ambulating for the past 3 months secondary to pain OT consulted Admission and Anticipated Discharge Date Admission Date: September 04, 2019 Subjective ff up for fever, pneumonia seen resting in bed, using laptop computer, on a video conference with his patient is alert, oriented x 3, pleasant had an episode of confusion overnight after receiving phenergan states he feels improved today still has cough, productive of yellow sputum no chest pain vomited food yesterday afternoon (happened again today after lunch) denies abdominal pain, (+) BMs no other symptoms Review of Systems Review of Systems: All systems reviewed & are unremarkable except as noted in HPI & below Physical Exam Physical Exam: General- oriented x 3, not in distress, speaks in sentences with no effort or accessory muscle use Eyes- anicteric Neck- no JVD Lungs- mild rhonchi right lung clear on the left no wheezing Heart- normal rate, regular rhythm; no murmurs Abdomen- normal bowel sounds, nondistended, soft, nontender Extremities- no pretibial edema, no calf tenderness Neuro- alert, oriented x 3; no gross focal neurologic deficits Skin- warm & dry Results & Data Results & Data ([facility]) Vital Signs (Past 12 Hours) Vital Signs Temp Pulse Resp BP BP Pulse Ox 09/07/19 12:13 36.8 C 89 18 121/73 98 09/07/19 07:53 36.6 C 80 18 128/79 98 09/07/19 04:00 36.6 C 74 20 97/62 L 96
--- NOTE | 2019-09-07 13:28 | Cardiology Progress Note ---
Date of Service September 07, 2019 Assessment & Plan (1) Right ventricular dysfunction: New finding. Likely represents progressive pulmonary pathology. Unclear whether this is due to active pneumonia versus further metastatic disease. No further cardiac intervention indicated at this time. Would recommend avoiding decrease of preload Okay to DC telemetry or to home from a cardiac standpoint. (2) Pneumonia: (3) Metastatic adenocarcinoma to bone: (4) Cancer related pain: (5) Paroxysmal atrial fibrillation: Subjective Patient seen and examined, chart reviewed. A little bit more confused today than previously but states he is feeling well. Denies any complaints of chest pain, shortness of breath, palpitations, lightheadedness, dizziness or syncope. Telemetry reviewed: Normal sinus rhythm without arrhythmia. Review of Systems Review of Systems: All systems reviewed & are unremarkable except as noted in HPI & below Physical Exam Physical Exam: General: Awake, alert and oriented x 3. No acute distress. HEENT: Normocephalic, atraumatic. Pupils equal, round and reactive to light and accommodation. Extraocular muscles are intact. Anicteric sclera. Moist mucous membranes. Neck: No JVD. No bruit. Cardiovascular: Regular. Positive S-4. Normal S-1 and S-2. No S-3. 3/6 holosystolic ejection murmur, 5th intercostal space, mid-clavicular line without radiation. No rubs. Pulmonary: Clear to auscultation bilaterally. No rales, rhonchi, or wheezing. Abdomen: Bowel sounds x 4, soft. No rebound, guarding or tenderness. No organomegaly. Extremities: No clubbing, cyanosis or edema. +2 pedal pulses bilaterally. Skin: Warm and dry. Results & Data Vital Signs (Past 12 Hours) Vital Signs Temp Pulse Resp BP BP Pulse Ox 09/07/19 12:13 36.8 C 89 18 121/73 98 09/07/19 07:53 36.6 C 80 18 128/79 98 09/07/19 04:00 36.6 C 74 20 97/62 L 96
[2019-09-07] MEDS ORDERED: VANCOMYCIN TROUGH ONE (13:30)
--- NOTE | 2019-09-07 14:14 | Palliative Care Consultation ---
Date of Consultation September 07, 2019 Assessment & Plan (1) Goals of care, counseling/discussion: -64 year old male patient with PMH stage IV esophageal cancer s/p XRT completed 07/01/2019, mets to lungs and bone, has not started systemic therapy yet, htn, RA-on Plaquenil, chronic lower extremity lymphedema, cardiomyopathy with EF 30% diagnosed via cardiac catheterization June 2018, EF now >70% with severely reduced RV function, who presented to the ED with fevers, confusion and lethargy. Patient was in the hospital on 08/01 with septicemia and again on 08/16 briefly for confusion and fevers. Upon arrival in ED three days ago, he was hypotensive, tachycardic, and lethargic. Patient was also requiring oxygen. CTA obtained-- no PE, but did show RLL infiltrate vs. metastatic disease. Aspiration risk due to lethargy. His lactate was slightly elevated at 2.1, now at 1.4. Patient was placed on abx prophylactically for possible sepsis, however blood cultures and sputum culture negative so far. Urine cx pending. Patient has been intermittently spiking fevers. Also had several episodes of rigid limbs and chills-- thought to be rigors. Per hospitalist, CXR shows only mild progression of infiltrate/metastatic disease-- would not account for patient's spiking of fevers or rigors. Fevers could be malignancy-related. Infectious disease consulted who suggested to continue 7 days of Zosyn, stop vanco, and could change to Augmentin on discharge. Echocardiogram performed-- hyperdynamic LV systolic function with EF >70%, also with new finding of severely reduced right ventricular systolic function. Per cardiology, could represent progressive pulmonary disease. Palliative care is consulted to assist with pain management. Patient is known to palliative care service. At home, patient was on fentanyl patch at 50mcg/hr, methadone 5mg PO TID, morphine 15mg PO Q6h PRN breakthrough pain. Patient was reportedly still in pain-- Dilaudid 0.5mg IV PRN was ordered and patient was receiving. Given patient's intermittent periods of lethargy, he was given narcan on 09/04, but then began screaming out in pain. Dilaudid was ordered again, but discontinued again last night due to increased confusion. His fentanyl patch was also removed. Patient is ordered the morphine 15mg PRN-- has not received a dose since 09/03. -Patient seen by palliative MD this afternoon. -He was conversing with his on Facetime and taking phone calls. Plan is to wean down gabapentin and continue methadone. -Increase methadone to 10mg BID -Decrease gabapentin to 300mg TID -Restart fentanyl patch at 25mcg/hr. -Patient still plans on starting chemotherapy when he is able. He lives at home with his who is very supportive. -We will continue to follow as needed. (2) Pneumonia: (3) Right ventricular dysfunction: (4) Cancer related pain: Supervising Physician Co-Signing Physician Notes Patient well-known to me as an inpatient as well as outpatient. Patient was started on methadone-due to his borderline prolonged QTc interval it was being titrated slowly and carefully following EKGs. Expect that patient's altered mental status is due to increased fentanyl absorption with fever. In clinic I have been trying to control his pain with methadone-planned wean of his gabapentin followed by weaning his fentanyl. Now that patient is off Plaquenil-his QT interval is 420-we will plan to increase his methadone, decrease his gabapentin as this interferes with cognition and then continue to wean his fentanyl. May try to wean him off his fentanyl sooner rather than later as he continues to have recurrent fevers that may be neoplasm related-increase SkinTemp causes increased absorption from the patch. During my visit patient had his on Skype-they have been conversing for most of the day. PE: No acute distress, patient reports his pain is well controlled-however patient has not been getting up much, just sitting upright in bed is an improvement. HEENT: EOMI, hearing within normal limits Respirations: Clear, unlabored CV: Regular rate, no increased edema Abdomen: Soft, nontender Neuro: Drowsy at times, dozes off, otherwise oriented Agree with above note, assessment and plan as per LON Spangler. Collaborated with attending physician Dr. Guerra History of Present Illness Attending Physician: Jaren Quintanilla MD History of Present Illness This 64 year old male patient with PMH stage IV esophageal cancer s/p XRT completed 07/01/2019, mets to lungs and bone, has not started systemic therapy yet, htn, RA-on Plaquenil, chronic lower extremity lymphedema, cardiomyopathy with EF 30% diagnosed via cardiac catheterization June 2018, EF now >70% with severely reduced RV function, who presented to the ED with fevers, confusion and lethargy. Patient was in the hospital on 08/01 with septicemia and again on 08/16 briefly for confusion and fevers. Upon arrival in ED three days ago, he was hypotensive, tachycardic, and lethargic. Patient was also requiring oxygen. CTA obtained-- no PE, but did show RLL infiltrate vs. metastatic disease. Aspiration risk due to lethargy. His lactate was slightly elevated at 2.1, now at 1.4. Patient was placed on abx prophylactically for possible sepsis, however blood cultures and sputum culture negative so far. Urine cx pending. Patient has been intermittently spiking fevers. Also had several episodes of rigid limbs and chills-- thought to be rigors. Per hospitalist, CXR shows only mild progression of infiltrate/metastatic disease-- would not account for patient's spiking of fevers or rigors. Fevers could be malignancy-related. Infectious disease consulted who suggested to continue 7 days of Zosyn, stop vanco, and could change to Augmentin on discharge. Echocardiogram performed-- hyperdynamic LV systolic function with EF >70%, also with new finding of severely reduced right ventricular systolic function. Per cardiology, could represent progressive pulmonary disease. Palliative care is consulted to assist with pain management. Patient is known to palliative care service. At home, patient was on fentanyl patch at 50mcg/hr, methadone 5mg PO TID, morphine 15mg PO Q6h PRN breakthrough pain. Patient was reportedly still in pain-- Dilaudid 0.5mg IV PRN was ordered and patient was receiving. Given patient's intermittent periods of lethargy, he was given narcan on 09/04, but then began screaming out in pain. Dilaudid was ordered again, but discontinued again last night due to increased confusion. His fentanyl patch was also removed. Patient is ordered the morphine 15mg PRN-- has not received a dose since 09/03. Thank you kindly for this consult. Palliative care team will follow as needed. Allergies Allergy/AdvReac Type Severity Reaction Status Date / Time No Known Allergies Allergy Verified 08/09/19 11:33 Home Medications Home Medications Medication Instructions Recorded Confirmed Type gabapentin 300 mg PO .AM&NOON 06/14/19 09/04/19 History hydroxychloroquine 400 mg PO DAILY@199906/14/19 09/04/19 History polyethylene glycol 3350 [Miralax] 17 g PO DAILY PRN #30 ea 06/18/19 09/04/19 Rx naloxone 4 mg INTRANASAL UD PRN 06/28/19 09/04/19 History Metamucil 1 tbsp PO DAILY PRN 06/30/19 09/04/19 History acetaminophen [Tylenol Extra 1,000 mg PO Q6H 07/28/19 09/04/19 History Strength] gabapentin 600 mg PO DAILY@199907/28/19 09/04/19 History Lactinex 1 tab PO TID #30 tab 08/03/19 09/04/19 Rx fentanyl 1 patch TD Q72H 10 Days #3 ea 08/03/19 09/04/19 Rx morphine 15 mg PO Q6H PRN 3 Days #10 tab 08/03/19 09/04/19 Rx methadone 5 mg PO TID 08/09/19 09/04/19 History aspirin 81 mg PO DAILY #30 tab 08/12/19 09/04/19 Rx metoprolol succinate 50 mg PO BID 09/04/19 09/04/19 History Patient History Medical History Acute hypoxemic respiratory failure 06/2018 Afib Recent confinement June 2018 for new diagnosis of heart failure. Paroxysmal A. fib noted during confinement. Patient discharged on Eliquis for anticoagulation.> PT REPORTS NO LONGER ON ELIQUIS> THIS WAS ISOLATED INCIDENT Eliquis discontinued a few months later by industrial electrician journeyman after outpatient telemetry did not show recurrent AF. Anxiety Atypical chest pain Cancer associated pain (Inactive) Cardiomyopathy Severe LV dysfunction with EF of 30% found on admission June 2018. TTE 11/02/2018 showed resolution of cardiomyopathy with EF greater than 70%. Chronic anemia CKD (chronic kidney disease), stage III Constipation Elevated troponin 06/2018. Cardiac catheterization performed during admission showed severe LV dysfunction with EF of 30% but large-caliber coronaries with minimal irregularities at most. Elevation felt secondary to demand ischemia from cardiomyopathy/fluid overload. GE junction carcinoma GERD (gastroesophageal reflux disease) HX Hypertension Malignant neoplasm of gastroesophageal junction REASON FOR PROCEDURE > RADIATION AT PRESENT Metastatic cancer to spine (Inactive) Nonischemic cardiomyopathy Paroxysmal atrial fibrillation Pathologic compression fracture of lumbar vertebra L5 with retropulsion > W/C AT PRESENT Pneumonia (Acute) 06/2018 Rheumatoid arthritis Surgical History History of cardiac cath JUNE 2018 > FOR C.P/SOB > COMC > NO STENTS History of tooth extraction Hx of colonoscopy Family History Grandfather (Maternal) Diabetes Social History Preferred Language: Bengali Communication Ability: Effective Office Services Manager Required: No Beliefs That Will Affect Care: None marital status: Current Living Situation: Spouse Other Information That Helps Us Care for You: No Feels Safe at Home: Yes Safety Concerns: Feels Safe At This Time Smoking Status: Never smoker Second Hand Exposure: No ; Hx Alcohol Use: Yes Alcohol type: beer and wine Hx Substance Use: No Results & Data Vital Signs (Past 12 Hours) Vital Signs Temp Pulse Resp BP BP Pulse Ox 09/07/19 12:13 36.8 C 89 18 121/73 98 09/07/19 07:53 36.6 C 80 18 128/79 98 09/07/19 04:00 36.6 C 74 20 97/62 L 96 Coding Level of Care Code 09722 Inpt Consult Level 3 Diagnoses Goals of care, counseling/discussion Z71.89 Pneumonia J18.9 Right ventricular dysfunction I51.9 Cancer related pain G89.3 Time Spent (min) 80 Time Spent Midlevel A total of 50 minutes spent by this METER READING CLERK in reviewing chart, reviewing patient's home and hospital medications, speaking with palliative MD and making recommendations for pain management. Attending Spent 30 minutes at bedside assessing patient's pain control as well as reviewing plan of care regarding increasing his methadone and decreasing his gabapentin as well as his fentanyl patch-patient's agree to plan-she helps manage his meds at home.
[2019-09-07] MEDS ORDERED: Nursing to Pharmacy Communication SCH (14:45)
[2019-09-07] MEDS ORDERED: fentaNYL 25 MCG/HR TDSY TD SCH (15:00)
[2019-09-07] MEDS: CHECK FENTANYL PATCH PLACEMENT SCH ×2 (16:23→23:42)
--- NOTE | 2019-09-07 16:39 | XRay Report ---
[facility]UB CLINICAL HISTORY: vomiting COMPARISON STUDY: CT of the abdomen and pelvis June 14, 2019. FINDINGS: The bowel gas pattern is normal. No urinary calculi are identified. There is a large amount stool within the rectum. There is a moderate amount stool within the colon. An L5 fracture is better depicted on prior CT. IMPRESSION: 1. Large amount of stool within the rectum. Moderate amount stool within the colon. 2. No evidence for a bowel obstruction. 3. Pathologic L5 fracture, better depicted on prior CT. ACT 112: Negative or not required by law. Electronically signed by: Quincy Spears M.D. 09/07/2019 4:37 PM
--- NOTE | 2019-09-07 18:09 | Electroencephalogram ---
EEG Procedure Note Date of Service September 07, 2019 Start / End Times Start Time: 7:06am End Time: 7:26am Referring Physician Jaren Shepherd History 64 yo with AMS Home Medication List Home Medications Medication Instructions Recorded Confirmed Type gabapentin 300 mg PO .AM&NOON 06/14/19 09/04/19 History hydroxychloroquine 400 mg PO DAILY@199906/14/19 09/04/19 History polyethylene glycol 3350 [Miralax] 17 g PO DAILY PRN #30 ea 06/18/19 09/04/19 Rx naloxone 4 mg INTRANASAL UD PRN 06/28/19 09/04/19 History Metamucil 1 tbsp PO DAILY PRN 06/30/19 09/04/19 History acetaminophen [Tylenol Extra 1,000 mg PO Q6H 07/28/19 09/04/19 History Strength] gabapentin 600 mg PO DAILY@199907/28/19 09/04/19 History Lactinex 1 tab PO TID #30 tab 08/03/19 09/04/19 Rx fentanyl 1 patch TD Q72H 10 Days #3 ea 08/03/19 09/04/19 Rx morphine 15 mg PO Q6H PRN 3 Days #10 tab 08/03/19 09/04/19 Rx methadone 5 mg PO TID 08/09/19 09/04/19 History aspirin 81 mg PO DAILY #30 tab 08/12/19 09/04/19 Rx metoprolol succinate 50 mg PO BID 09/04/19 09/04/19 History Inpatient Medication List Aspirin (Ecotrin Ectab) 81 mg PO DAILY@0800 [facility] Stop: 10/05/19 07:59 Last Admin: 09/07/19 08:20 Dose: 81 mg Documented by: [id number] Admin: 09/06/19 08:49 Dose: 81 mg Documented by: [id number] Admin: 09/05/19 08:11 Dose: 81 mg Documented by: [id number] Enoxaparin Sodium (Lovenox) 40 mg SQ Q24H [facility] Stop: 10/04/19 17:59 Last Admin: 09/06/19 17:14 Dose: 40 mg Documented by: [id number] Admin: 09/05/19 21:17 Dose: 40 mg Documented by: [id number] Admin: 09/04/19 16:40 Dose: 40 mg Documented by: [id number] Fentanyl (Duragesic) 12 mcg TD Q3D@2000 [facility] Stop: 09/19/19 19:59 Last Admin: 09/05/19 21:10 Dose: 12 mcg Documented by: [id number] Fentanyl (Duragesic) 25 mcg TD Q3D [facility] Stop: 09/21/19 14:59 Last Admin: 09/07/19 16:19 Dose: 25 mcg Documented by: [id number] Gabapentin (Neurontin) 300 mg PO BID@08,1200 [facility] Stop: 10/05/19 07:59 Last Admin: 09/07/19 12:55 Dose: 300 mg Documented by: [id number] Admin: 09/07/19 08:20 Dose: 300 mg Documented by: [id number] Admin: 09/06/19 12:09 Dose: 300 mg Documented by: [id number] Admin: 09/06/19 08:47 Dose: 300 mg Documented by: [id number] Admin: 09/05/19 11:46 Dose: 300 mg Documented by: [id number] Admin: 09/05/19 08:11 Dose: 300 mg Documented by: [id number] Gadobutrol (Gadavist 65ml) 11.5 ml IV ONCE PRN PRN Reason: Interaction Checking Stop: 09/10/19 01:00 Last Admin: 09/06/19 00:33 Dose: 11.5 ml Documented by: [id number] Heparin Sodium (Porcine) (Heparin Sod 100 Unit/Ml Flush) 5 ml FLUSH PRN PRN PRN Reason: Flush Stop: 10/04/19 23:44 Last Admin: 09/07/19 02:16 Dose: 5 ml Documented by: [id number] Piperacillin Sod/Tazobactam (Sod 3.375 gm/ Dextrose) 115 mls @ 28.75 mls/hr IV Q8H [facility]; Protocol Stop: 09/13/19 09:59 Last Infusion: 09/07/19 13:02 Dose: 0 mls/hr Documented by: [id number] Admin: 09/07/19 09:17 Dose: 30 mls/hr Documented by: [id number] Infusion: 09/07/19 06:18 Dose: 0 mls/hr Documented by: [id number] Admin: 09/07/19 02:28 Dose: 28.8 mls/hr Documented by: [id number] Infusion: 09/06/19 21:36 Dose: 0 mls/hr Documented by: [id number] Infusion: 09/06/19 21:08 Dose: 28.8 mls/hr Documented by: [id number] Infusion: 09/06/19 20:50 Dose: 0 mls/hr Documented by: [id number] Admin: 09/06/19 17:11 Dose: 28.8 mls/hr Documented by: [id number] Infusion: 09/06/19 13:29 Dose: 0 mls/hr Documented by: [id number] Admin: 09/06/19 09:23 Dose: 28.8 mls/hr Documented by: [id number] Ibuprofen (Motrin) 800 mg PO TID [facility] Stop: 10/05/19 20:59 Last Admin: 09/07/19 14:47 Dose: 800 mg Documented by: [id number] Admin: 09/07/19 08:20 Dose: 800 mg Documented by: [id number] Admin: 09/06/19 20:31 Dose: 800 mg Documented by: [id number] Admin: 09/06/19 12:53 Dose: 800 mg Documented by: [id number] Admin: 09/06/19 08:50 Dose: 800 mg Documented by: [id number] Admin: 09/05/19 21:09 Dose: 800 mg Documented by: [id number] Ioversol (Optiray 320 125ml) 119 ml IV ONCE PRN PRN Reason: Interaction Checking Stop: 09/08/19 15:30 Last Admin: 09/04/19 15:31 Dose: 119 ml Documented by: [id number] Lactobacillus Acidophilus (Floranex) 1 tab PO TID@0800,1200,2000 [facility] Stop: 10/04/19 19:59 Last Admin: 09/07/19 12:55 Dose: 1 tab Documented by: [id number] Admin: 09/07/19 08:20 Dose: 1 tab Documented by: [id number] Admin: 09/06/19 20:31 Dose: 1 tab Documented by: [id number] Admin: 09/06/19 12:10 Dose: 1 tab Documented by: [id number] Admin: 09/06/19 08:48 Dose: 1 tab Documented by: [id number] Admin: 09/05/19 20:43 Dose: 1 tab Documented by: [id number] Admin: 09/05/19 11:46 Dose: 1 tab Documented by: [id number] Admin: 09/05/19 08:11 Dose: 1 tab Documented by: [id number] Admin: 09/04/19 19:55 Dose: Not Given Documented by: [id number] Methadone HCl (Dolophine) 5 mg PO TID [facility] Stop: 09/18/19 14:59 Last Admin: 09/07/19 14:47 Dose: 5 mg Documented by: [id number] Admin: 09/07/19 09:16 Dose: 5 mg Documented by: [id number] Admin: 09/06/19 20:30 Dose: 5 mg Documented by: [id number] Admin: 09/06/19 12:53 Dose: 5 mg Documented by: [id number] Admin: 09/06/19 08:57 Dose: 5 mg Documented by: [id number] Admin: 09/05/19 21:10 Dose: 5 mg Documented by: [id number] Admin: 09/05/19 13:39 Dose: 5 mg Documented by: [id number] Admin: 09/05/19 09:03 Dose: 5 mg Documented by: [id number] Admin: 09/04/19 20:51 Dose: 5 mg Documented by: [id number] Admin: 09/04/19 16:39 Dose: 5 mg Documented by: [id number] Metoprolol Succinate (Toprol Xl) 50 mg PO BID@08,1999 [facility] Stop: 10/04/19 19:59 Last Admin: 09/07/19 08:21 Dose: 50 mg Documented by: [id number] Admin: 09/07/19 00:39 Dose: 50 mg Documented by: [id number] Admin: 09/06/19 08:48 Dose: 50 mg Documented by: [id number] Admin: 09/05/19 20:45 Dose: 50 mg Documented by: [id number] Admin: 09/05/19 08:12 Dose: 50 mg Documented by: [id number] Admin: 09/04/19 19:56 Dose: Not Given Documented by: [id number] Miscellaneous (Fentanyl Patch Check Placement) 1 ea N/A QS [facility] Stop: 10/07/19 15:59 Last Admin: 09/07/19 16:23 Dose: 1 ea Documented by: [id number] Morphine Sulfate (Morphine Sulfate Ir) 15 mg PO Q6H PRN PRN Reason: Pain Stop: 09/18/19 12:49 Last Admin: 09/04/19 13:28 Dose: 15 mg Documented by: [id number] Discontinued Medications Amoxicillin/Clavulanate Potassium (Augmentin 875mg) 1 tab PO BIDM [facility] Stop: 09/12/19 20:59 Last Admin: 09/06/19 09:11 Dose: Not Given Documented by: [id number] Admin: 09/05/19 21:49 Dose: 1 tab Documented by: [id number] Fentanyl (Duragesic) 25 mcg TD Q3D [facility] Stop: 09/19/19 19:59 Last Admin: 09/05/19 21:11 Dose: 25 mcg Documented by: [id number] Fentanyl Citrate (Fentanyl Citrate) 50 mcg IV NOW STA Stop: 09/04/19 08:03 Last Admin: 09/04/19 08:11 Dose: 50 mcg Documented by: [id number] Gabapentin (Neurontin) 600 mg PO DAILY@1999 [facility] Stop: 10/04/19 19:59 Last Admin: 09/07/19 00:38 Dose: 600 mg Documented by: [id number] Admin: 09/05/19 20:45 Dose: 600 mg Documented by: [id number] Admin: 09/04/19 19:56 Dose: Not Given Documented by: [id number] Hydromorphone HCl (Dilaudid) 0.5 mg IV Q30M PRN PRN Reason: severe breakthrough pain Stop: 09/18/19 12:39 Last Admin: 09/06/19 02:45 Dose: 0.5 mg Documented by: [id number] Admin: 09/05/19 18:12 Dose: 0.5 mg Documented by: [id number] Admin: 09/05/19 14:06 Dose: 0.5 mg Documented by: [id number] Admin: 09/05/19 11:55 Dose: 0.5 mg Documented by: [id number] Admin: 09/05/19 09:05 Dose: 0.5 mg Documented by: [id number] Admin: 09/04/19 22:07 Dose: 0.5 mg Documented by: [id number] Lactated Ringer's (Lr) 500 mls @ 999 mls/hr IV .Q31M ONE Stop: 09/04/19 07:21 Last Infusion: 09/04/19 07:57 Dose: 0 mls/hr Documented by: [id number] Admin: 09/04/19 07:27 Dose: 999 mls/hr Documented by: [id number] Acetaminophen (Ofirmev) 1,000 mg in 100 mls @ 400 mls/hr IV NOW STA Stop: 09/04/19 07:09 Last Infusion: 09/04/19 07:41 Dose: 0 mls/hr Documented by: [id number] Admin: 09/04/19 07:19 Dose: 400 mls/hr Documented by: [id number] Piperacillin Sod/Tazobactam Sod (Zosyn) 4.5 gm in 120 mls @ 240 mls/hr IV NOW ONE Stop: 09/04/19 07:24 Last Infusion: 09/04/19 07:54 Dose: 0 mls/hr Documented by: [id number] Admin: 09/04/19 07:24 Dose: 240 mls/hr Documented by: [id number] Vancomycin HCl 2,250 mg/ (Sodium Chloride) 545 mls @ 200 mls/hr IV NOW ONE Stop: 09/04/19 09:38 Last Infusion: 09/04/19 11:06 Dose: 0 mls/hr Documented by: [id number] Admin: 09/04/19 07:40 Dose: 200 mls/hr Documented by: [id number] Norepinephrine Bitartrate 8 mg (/ Dextrose) 508 mls @ 22.117 mls/hr IV .[id number] [facility]; Protocol Stop: 10/04/19 07:59 Last Admin: 09/04/19 11:05 Dose: Not Given Documented by: [id number] Lactated Ringer's (Lr) 500 mls @ 999 mls/hr IV .Q31M ONE Stop: 09/04/19 08:19 Last Infusion: 09/04/19 11:06 Dose: 0 mls/hr Documented by: [id number] Admin: 09/04/19 08:11 Dose: 999 mls/hr Documented by: [id number] Piperacillin Sod/Tazobactam (Sod 3.375 gm/ Dextrose) 115 mls @ 28.75 mls/hr IV Q8H [facility]; Protocol Stop: 09/18/19 11:44 Last Infusion: 09/06/19 01:21 Dose: 0 mls/hr Documented by: [id number] Admin: 09/05/19 21:12 Dose: 28.8 mls/hr Documented by: [id number] Infusion: 09/05/19 14:57 Dose: 0 mls/hr Documented by: [id number] Admin: 09/05/19 10:57 Dose: 28.8 mls/hr Documented by: [id number] Infusion: 09/05/19 08:11 Dose: 0 mls/hr Documented by: [id number] Admin: 09/05/19 04:11 Dose: 28.8 mls/hr Documented by: [id number] Infusion: 09/05/19 00:00 Dose: 0 mls/hr Documented by: [id number] Admin: 09/04/19 20:00 Dose: 28.8 mls/hr Documented by: [id number] Infusion: 09/04/19 16:23 Dose: 0 mls/hr Documented by: [id number] Admin: 09/04/19 12:21 Dose: 28.8 mls/hr Documented by: [id number] Vancomycin HCl 1,750 mg/ (Sodium Chloride) 535 mls @ 200 mls/hr IV Q10H JANE Stop: 09/18/19 15:59 Last Infusion: 09/05/19 12:23 Dose: 0 mls/hr Documented by: [id number] Admin: 09/05/19 11:41 Dose: 200 mls/hr Documented by: [id number] Infusion: 09/05/19 04:36 Dose: 0 mls/hr Documented by: [id number] Admin: 09/05/19 01:52 Dose: 200 mls/hr Documented by: [id number] Infusion: 09/04/19 19:52 Dose: 0 mls/hr Documented by: [id number] Admin: 09/04/19 16:42 Dose: 200 mls/hr Documented by: [id number] Sodium Chloride (Nss 1000ml) 1,000 mls @ 150 mls/hr IV .Q6H40M JANE Stop: 09/05/19 02:49 Last Infusion: 09/05/19 10:56 Dose: 0 mls/hr Documented by: [id number] Admin: 09/05/19 01:53 Dose: 150 mls/hr Documented by: [id number] Infusion: 09/04/19 20:20 Dose: 150 mls/hr Documented by: [id number] Admin: 09/04/19 13:39 Dose: 150 mls/hr Documented by: [id number] Sodium Chloride (Nss 1000ml) 500 mls @ 999 mls/hr IV .Q31M ONE Stop: 09/04/19 14:24 Last Infusion: 09/04/19 15:09 Dose: 0 mls/hr Documented by: [id number] Admin: 09/04/19 14:12 Dose: 999 mls/hr Documented by: [id number] Acetaminophen (Ofirmev) 1,000 mg in 100 mls @ 400 mls/hr IV NOW STA Stop: 09/05/19 18:09 Last Infusion: 09/05/19 19:01 Dose: 0 mls/hr Documented by: [id number] Admin: 09/05/19 18:46 Dose: 400 mls/hr Documented by: [id number] Lorazepam (Ativan) 1 mg in 2 mls @ 2 mls/min IV NOW STA Stop: 09/05/19 18:12 Last Admin: 09/05/19 19:33 Dose: Not Given Documented by: [id number] Acetaminophen ([facility]) 1,000 mg in 100 mls @ 400 mls/hr IV NOW STA Stop: 09/05/19 18:48 Last Admin: 09/05/19 19:35 Dose: Not Given Documented by: [id number] Lactated Ringer's (Lr) 1,000 mls @ 150 mls/hr IV .Q6H40M JANE Stop: 09/06/19 09:04 Last Infusion: 09/06/19 11:31 Dose: 0 mls/hr Documented by: [id number] Admin: 09/06/19 04:31 Dose: 150 mls/hr Documented by: [id number] Infusion: 09/06/19 03:25 Dose: 150 mls/hr Documented by: [id number] Admin: 09/05/19 20:44 Dose: 150 mls/hr Documented by: [id number] Promethazine HCl 12.5 mg/ (Sodium Chloride) 50.5 mls @ 202 mls/hr IV Q6H PRN PRN Reason: Nausea And Vomiting Stop: 10/06/19 12:23 Last Infusion: 09/06/19 21:09 Dose: 0 mls/hr Documented by: [id number] Admin: 09/06/19 20:50 Dose: 202 mls/hr Documented by: [id number] Infusion: 09/06/19 13:28 Dose: 0 mls/hr Documented by: [id number] Admin: 09/06/19 12:53 Dose: 202 mls/hr Documented by: [id number] Ketorolac Tromethamine (Toradol) 15 mg IV NOW ONE Stop: 09/07/19 00:57 Last Admin: 09/07/19 02:13 Dose: 15 mg Documented by: [id number] Lorazepam (Ativan) Confirm Administered Dose 2 mg .ROUTE .STK-MED ONE Stop: 09/05/19 18:04 Last Admin: 09/05/19 18:13 Dose: Not Given Documented by: [id number] Miscellaneous () 1 ea N/A NOW STA Stop: 09/04/19 07:49 Last Admin: 09/04/19 11:06 Dose: Not Given Documented by: [id number] Miscellaneous (Patient's Height And/Or Weight Needed) 1 ea N/A Q2H JANE Stop: 10/04/19 10:59 Last Admin: 09/04/19 11:01 Dose: 1 ea Documented by: [id number] Miscellaneous (Fentanyl Patch Check Placement) 1 ea N/A QS JANE Stop: 10/06/19 00:00 Last Admin: 09/06/19 17:11 Dose: 1 ea Documented by: [id number] Admin: 09/06/19 08:49 Dose: 1 ea Documented by: [id number] Admin: 09/06/19 00:56 Dose: 1 ea Documented by: [id number] Naloxone HCl (Narcan) Confirm Administered Dose 0.4 mg .ROUTE .STK-MED ONE Stop: 09/05/19 18:05 Last Admin: 09/05/19 18:12 Dose: 0.4 mg Documented by: [id number] Naloxone HCl (Narcan) 0.4 mg IV NOW STA Stop: 09/05/19 18:09 Last Admin: 09/05/19 18:13 Dose: Not Given Documented by: [id number] Description This is a 21 electrode EEG with a single channel dedicated to limited EKG. The electrodes were placed in accordance with the International 10-20 system. History: 64 yo w/ metastatic cancer, no mets to brain on MRI, r/o seizure Rx: gabapentin, methadone, morphine, fentanyl Start/Stop: 7:06am/7:26am Attending reading: Makayla Garcia EEG Description: EEG background: Background was low voltage with predominantly delta/theta slowing, occasionally reaching up to 7-8 Hz for brief 1-3 second periods. No well formed posterior dominant rhythm was observed. The EEG is continuous. There is variability and reactivity present. Activation and reactivity: Photic stimulation performed without any abnormalities noted. No photic driving observed. Hyperventilation was not performed. Sleep: Patient was not drowsy and did not enter higher levels of sleep. Epileptiform discharges: No epileptiform discharges were observed. Rhythmic and periodic patterns: None Seizures: None Impression: This was an abnormal EEG given generalized slowing likely secondary to underlying toxic-metabolic encephalopathy. No seizures or epileptiform discharges were seen. Clinical correlation required. [facility] EEG Procedure Codes Indication for Procedure (1) Encephalopathy: (2) AMS (altered mental status): Neurology Neurology: 66720 EEG include record awake & drowsy
--- NOTE | 2019-09-07 19:13 | Anesthesiology Consultation ---
Date of Service September 07, 2019 Assessment & Plan (1) Encounter for pre-operative examination: Chart Review Chart Review: Acceptable Risk for Surgery and Patient NOT seen in Pre Admission Testing Mental status has been waxing and waning. Palliative care is managing his chronic pain medications and making recommendations. If patient more awake DOS will be able to sign consent but his is also involved in his care so would likely need to reach out to her if patient unable to sign. Anesthetic plan per providers DOS. Consults Requested none Cardiology consult 09/07/2019: RV dysfunction: NEW FINDING. Likely represents progressive pulmonary pathology. Unclear whether this is due to active pneumonia versus further metastatic disease. No further cardiac intervention indicated at this time. Would recommend avoiding decrease of preload. Okay to DC telemetry or to home from a cardiac standpoint. History Surgery Operation Date: 09/08/19 07:00 Proposed Procedures p Esophagogastroduodenoscopy with Stent Placement - Agustina Schaeffer MD Height/Weight Height: 6 ft 5 in Weight: 116.2 kg Allergies Allergy/AdvReac Type Severity Reaction Status Date / Time No Known Allergies Allergy Verified 08/09/19 11:33 Medications Home Medications Medication Instructions Recorded Confirmed Last Taken gabapentin 300 mg PO .AM&NOON 06/14/19 09/04/19 07/26/19 hydroxychloroquine 400 mg PO DAILY@199906/14/19 09/04/19 07/26/19 polyethylene glycol 3350 [Miralax] 17 g PO DAILY PRN #30 ea 06/18/19 09/04/19 Unknown naloxone 4 mg INTRANASAL UD PRN 06/28/19 09/04/19 Unknown Metamucil 1 tbsp PO DAILY PRN 06/30/19 09/04/19 06/29/19 18:00 acetaminophen [Tylenol Extra 1,000 mg PO Q6H 07/28/19 09/04/19 07/27/19 Strength] gabapentin 600 mg PO DAILY@199907/28/19 09/04/19 07/26/19 Lactinex 1 tab PO TID #30 tab 08/03/19 09/04/19 Unknown fentanyl 1 patch TD Q72H 10 Days #3 ea 08/03/19 09/04/19 08/14/19 09:00 morphine 15 mg PO Q6H PRN 3 Days #10 tab 08/03/19 09/04/19 Unknown methadone 5 mg PO TID 08/09/19 09/04/19 Unknown aspirin 81 mg PO DAILY #30 tab 08/12/19 09/04/19 Unknown metoprolol succinate 50 mg PO BID 09/04/19 09/04/19 Unknown Active Medications Generic Name Dose Route Start Last Admin Trade Name Freq PRN Reason Stop Dose Admin Aspirin 81 mg 09/05/19 08:00 09/07/19 08:20 Ecotrin Ectab PO 10/05/19 07:59 81 mg DAILY@0800 JANE Administration Enoxaparin Sodium 40 mg 09/04/19 18:00 09/06/19 17:14 Lovenox SQ 10/04/19 17:59 40 mg Q24H JANE Administration Fentanyl 12 mcg 09/05/19 20:00 09/05/19 21:10 Duragesic TD 09/19/19 19:59 12 mcg Q3D@2000 JANE Administration Fentanyl 25 mcg 09/07/19 15:00 09/07/19 16:19 Duragesic TD 09/21/19 14:59 25 mcg Q3D JANE Administration Gabapentin 300 mg 09/05/19 08:00 09/07/19 12:55 Neurontin PO 10/05/19 07:59 300 mg BID@08,1200 JANE Administration Gadobutrol 11.5 ml 09/06/19 01:01 09/06/19 00:33 Gadavist 65ml IV 09/10/19 01:00 11.5 ml ONCE PRN Administration Interaction Checking Heparin Sodium (Porcine) 5 ml 09/04/19 23:53 09/07/19 02:16 Heparin Sod 100 Unit/Ml Flush FLUSH 10/04/19 23:44 5 ml PRN PRN Administration Flush Piperacillin Sod/Tazobactam 115 mls @ 28.75 mls/hr 09/06/19 10:00 09/07/19 18:52 Sod 3.375 gm/ Dextrose IV 09/13/19 09:59 28.8 mls/hr Q8H JANE Administration Protocol Ibuprofen 800 mg 09/05/19 21:00 09/07/19 14:47 Motrin PO 10/05/19 20:59 800 mg TID JANE Administration Ioversol 119 ml 09/04/19 15:31 09/04/19 15:31 Optiray 320 125ml IV 09/08/19 15:30 119 ml ONCE PRN Administration Interaction Checking Lactobacillus Acidophilus 1 tab 09/04/19 20:00 09/07/19 12:55 Floranex PO 10/04/19 19:59 1 tab TID@0800,1200,2000 JANE Administration Methadone HCl 5 mg 09/04/19 15:00 09/07/19 14:47 Dolophine PO 09/18/19 14:59 5 mg TID JANE Administration Metoprolol Succinate 50 mg 09/04/19 20:00 09/07/19 08:21 Toprol Xl PO 10/04/19 19:59 50 mg BID@0800,2000 JANE Administration Miscellaneous 1 ea 09/07/19 16:00 09/07/19 16:23 Fentanyl Patch Check Placement N/A 10/07/19 15:59 1 ea QS JANE Administration Morphine Sulfate 15 mg 09/04/19 12:50 09/04/19 13:28 Morphine Sulfate Ir PO 09/18/19 12:49 15 mg Q6H PRN Administration Pain Past Medical History Medical History Acute hypoxemic respiratory failure 06/2018 Afib Recent confinement June 2018 for new diagnosis of heart failure. Paroxysmal A. fib noted during confinement. Patient discharged on Eliquis for anticoagulation.> PT REPORTS NO LONGER ON ELIQUIS> THIS WAS ISOLATED INCIDENT Eliquis discontinued a few months later by resolution specialist after outpatient telemetry did not show recurrent AF. Anxiety Atypical chest pain Cancer associated pain (Inactive) Cardiomyopathy Severe LV dysfunction with EF of 30% found on admission June 2018. TTE 11/02/2018 showed resolution of cardiomyopathy with EF greater than 70%. Chronic anemia CKD (chronic kidney disease), stage III Constipation Elevated troponin 06/2018. Cardiac catheterization performed during admission showed severe LV dysfunction with EF of 30% but large-caliber coronaries with minimal irregularities at most. Elevation felt secondary to demand ischemia from cardiomyopathy/fluid overload. 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 Patient was in the hospital on 08/01 with septicemia and again on 08/16 briefly for confusion and fevers. Upon arrival in ED three days ago, he was hypotensive, tachycardic, and lethargic. Patient was also requiring oxygen. CTA obtained-- no PE, but did show RLL infiltrate vs. metastatic disease. Aspiration risk due to lethargy. His lactate was slightly elevated at 2.1, now at 1.4. Patient was placed on abx prophylactically for possible sepsis, however blood cultures and sputum culture negative so far. Urine cx pending. Patient has been inter mittently spiking fevers. Also had several episodes of rigid limbs and chills-- thought to be rigors. Per hospitalist, CXR shows only mild progression of infiltrate/metastatic disease-- would not account for patient's spiking of fevers or rigors. Fevers could be malignancy-related. Infectious disease consulted who suggested to continue 7 days of Zosyn, stop vanco, and could change to Augmentin on discharge. Echocardiogram performed-- hyperdynamic LV systolic function with EF >70%, also with new finding of severely reduced right ventricular systolic function. Per cardiology, could represent progressive pulmonary disease. Past Family History Family History Grandfather (Maternal) Diabetes Past Surgical History Surgical History History of cardiac cath JUNE 2018 > FOR C.P/SOB > [facility] > NO STENTS History of tooth extraction Hx of colonoscopy Social History Smoking Status: Never smoker Hx Alcohol Use: Yes Alcohol type: beer and wine alcohol intake frequency: holidays/special occasions only Hx Substance Use: No substance use type: does not use Substance Use Type Other:: cbd oil, medical marijuana Last Used Substance: Days (ago) Physical Exam Vital Signs Last Vital Signs Temp 36.7 C 09/07/19 15:53 Pulse 89 09/07/19 15:53 Resp 18 09/07/19 15:53 BP 120/76 09/07/19 15:53 Pulse Ox 97 09/07/19 15:53 Testing Laboratory Results 09/06/19 05:22 09/07/19 06:44 PT 13.3 Seconds (9.0-12.0) H 09/05/19 18:40 INR 1.3 (0.9-1.1) H 09/05/19 18:40 Urine Color Dark Yellow 09/06/19 22:36 Urine Appearance Cloudy (Clear) A 09/06/19 22:36 Urine pH 5.5 (4.5-7.5) 09/06/19 22:36 Ur Specific [place] 1.026 (1.000-1.030) 09/06/19 22:36 Urine Protein 2+ (Negative) H 09/06/19 22:36 Urine Glucose (UA) Negative (Negative) 09/06/19 22:36 Urine Ketones Negative (Negative) 09/06/19 22:36 Urine Nitrite Negative (Negative) 09/06/19 22:36 Ur Leukocyte Esterase Negative (Negative) 09/06/19 22:36 Urine WBC (Auto) 10-30 /hpf (0-5) H 09/06/19 22:36 Urine RBC (Auto) 10-30 /hpf (0-4) H 09/06/19 22:36 U Hyaline Cast (Auto) 5-10 /lpf (0-5) H 09/06/19 22:36 U Epithel Cells (Auto) >30 /lpf (0-5) H 09/06/19 22:36 Urine Bacteria (Auto) Negative (Negative) 09/06/19 22:36 09/06/19 11:16 Gram Stain - Final Sputum, Expectorated Sputum Culture - Preliminary Light normal jenifer present, final report to follow. 09/04/19 07:15 Aerobic Blood Culture - Preliminary Blood No growth in Aerobic bottle after 48 hours. Anaerobic Blood Culture - Preliminary No growth in Anaerobic bottle after 48 hours. 09/04/19 07:23 Aerobic Blood Culture - Preliminary Blood No growth in Aerobic bottle after 48 hours. Anaerobic Blood Culture - Preliminary No growth in Anaerobic bottle after 48 hours. COVID-19 PCR NEGATIVE ON 09/04/2019. NEGATIVE ALSO FOR FLU A AND FLU B ON 09/04/2019. Electrocardiogram Date: 09/07/19 Accelerated junctional rhythm. Low voltage QRS. Septal infarct. HR 79. Chest X-Ray Date: 09/05/19 XR chest 1V portable CLINICAL HISTORY: Not doing well. History of metastatic disease. COMPARISON STUDY: Chest radiograph and chest CT September 04, 2019. FINDINGS: Cardiomediastinal silhouette is stable. Underlying emphysema is noted. Asymmetric interstitial thickening and opacities within the right lower lung has slightly increased since prior exam. Multiple pulmonary nodules are again noted. Skeletal metastases are again noted. There is no pneumothorax or pleural effu viraj. Patient is mildly rotated. Right internal jugular [id number] is in place. IMPRESSION: Mild increase in asymmetric airspace opacity and interstitial thickening within the right lung. This favors an infectious process superimposed upon metastatic disease. Echocardiogram Date: 09/04/19 Small, underfilled LV chamber with moderate hypokinesis. Hyperdynamic LV systolic function, EF >70% Moderate hypokinesis of the inferior/inferiolateral og, otherwise, hyperdynamic wall motion. RV cavity size is enlarged. RV systolic function is severely reduced. Other Testing CT chest 09/04/2019: CT angio chest PE protocol CLINICAL HISTORY: 64 years-old Male presenting with shortness of breath, atypical chest pain, altered mental status, history metastatic cancer. TECHNIQUE: Multidetector CT angiography of the chest was performed after administration of intravenous contrast. 3-D volumetric and/or maximum intensity projection (MIP) images were subsequently reconstructed for review. IV contrast: 119 mL of Optiray 320. One or more dose lowering techniques were used consistent with the principles of ALARA (as low as reasonably achievable), including automatic exposure control, mA or kV adjustment to individual patient size, and/or use of iterative reconstruction. COMPARISON: 08/09/2019. CT DOSE (mGy.cm): The estimated cumulative dose is 1713.53 mGy.cm. FINDINGS: Anesthesiology Teacher topogram: Unremarkable. Pulmonary vasculature: The study is adequate for assessment of the pulmonary vascular tree. No filling defect within the pulmonary arteries to suggest embolus. Main pulmonary artery is not enlarged. No flattening of the interventricular septum. No intracardiac filling defect. No reflux of contrast into the hepatic veins. Remaining chest: Soft tissues: Normal thyroid and thoracic inlet. No axillary, supraclavicular, mediastinal, or hilar lymphadenopathy. Normal aorta. Normal heart size. No pericardial or pleural effusion. Diffuse esophageal distention. Esophageal wall thickening is difficult to exclude. Multiple liver lesions evident throughout the right and left hepatic lobes resulting in a nodular contour of the liver. These are stable to more prominent on the current exam. Lungs and airways: No pneumothorax. Bronchial wall thickening in the right lower lobe. Pulmonary arteries minimally enlarged relative to adjacent bronchi. The intralobular septal thickening may be present in the right lower lobe. Interval increase in peribronchovascular predominant consolidation in the right lower lobe. Redemonstration of multiple solid pulmonary nodules, an index nodule in the lingula measuring 7 mm (series 6 image 117), previously 7 mm. A second index nodule in the superior segment of the left lower lobe now measures 10 mm at the series series 6 image 153), previously 7 mm. Apparent increased size by several millimeters of any of the small nodules (1 to 3 mm increase). Moderate to severe emphysematous changes most significant in the left upper lobe and lingula. Musculoskeletal: Expansile destructive osseous lesions with extraosseous extension increased from prior. This is most notable at the lateral right fourth rib, the sternum, and posterior right eighth rib. IMPRESSION: 1. No evidence of pulmonary embolus. 2. Peribronchovascular predominant consolidation in the right lower lobe concerning for pneumonia or aspiration. Less likely, the appearance could relate to lymphangitic carcinomatosis predominant metastases. 3. Slight interval increase in size of many of the numerous solid pulmonary metastatic nodules (1 to 3 mm increase). Stable appearance of the remainder of the metastatic nodules. 4. Diffuse esophageal dilatation and/or wall thickening. Perhaps this could relate to reflux or esophagitis. 5. Redemonstration of hepatic metastatic disease. 6. Worsened extraosseous extension of osseous metastatic disease. 7. Emphysema. Brain MRI 09/04/2019: IMPRESSION: 1. Mildly motion degraded exam. No acute intracranial abnormality. 2. Moderate patchy T2/FLAIR hyperintensities throughout the white matter are nonspecific however, are suggestive of chronic microvascular ischemic disease. 3. No abnormal enhancement.
[2019-09-07] MEDS: ENOXAPARIN INJ 40 MG/0.4 ML SYR SQ SCH (19:28)
[2019-09-07] MEDS ORDERED: D5W AND NSS 1,000 ML IV SCH (20:30)
[2019-09-08] MEDS: PIPERACILLIN/TAZOBACTAM 3.375 GM in DEXTROSE 5% 100 ML IV SCH ×3 (00:50→19:37)
--- NOTE | 2019-09-08 05:31 | Electrocardiogram Report ---
Test Reason : Blood Pressure : / mmHG Vent. Rate : 079 BPM Atrial Rate : 000 BPM P-R Int : 000 ms QRS Dur : 078 ms QT Int : 394 ms P-R-T Axes : 000 039 066 degrees QTc Int : 451 ms Normal sinus rhythm Low voltage QRS Cannot rule out Septal infarct (cited on or before 06-SEP-2019) Abnormal ECG When compared with ECG of 06-SEP-2019 06:36, No significant change Confirmed by Regan Ortega [id number]) on 09/08/2019 5:31:28 AM Referred By: REFERRED SELF Confirmed By:Regan Ortega
[2019-09-08 07:17] LABS: Creatinine Clr Calc Pharmacy 136.6 ml/min; Est GFR (African American) 110.8; Est GFR (Non-African American) 95.6
--- NOTE | 2019-09-08 08:19 | Gastroenterology Progress Note ---
Date of Service September 08, 2019 Assessment & Plan (1) Nausea: 64 year old male with metastatic esophageal cancer diagnosed in May admitted w/ altered mental status/fevers on Zosyn/Vanco for pneumonia. He reports issues with constipation/bloating and notes intermittent episodes of dysphagia post/prandial vomiting over the past week. Notes he tolerated PO intake well yesterday but vomited food after lunch today. Denies any foreign body sensation, inability to tolerate secretions or further discomfort. KUB w/ significant stool burden but no evidence of ileus/obstruction - NPO for EGD today, possible stenting if progressive disease causing obstruction - Continue Antiemetics PRN and analgesia PRN - Would start a bowel regimen after endoscopy w/ colace 100 mg twice daily, miralax 1 capful twice daily Thank you for allowing us to participate in the care of this patient. Please call with any acute changes, questions or concerns. Please see addendum below with additional recommendation from my supervising physician. Admission and Anticipated Discharge Date Admission Date: September 04, 2019 Supervising Physician Co-Signing Physician Notes I have personally seen and examined the patient with LON Abarca. Her note reflects my exam and findings. I agree with her impression and plan. Awaiting EGD to determine if stent is an option. Mike Hightower M.D. Subjective Pt was seen and evaluated, chart reviewed. He was sleeping upon entering room. He was disoriented when he woke up but a few minutes into our conversation began answering questions appropriately. No abd pain but some bloating. Still reports intermittent nausea/vomiting w/ intermittent dysphagia over the past week. Denies any UGI issues since we had discussed yesterday. Review of Systems Constitutional: no fever Respiratory: + cough; no dyspnea Cardiovascular: no chest pain Gastrointestinal: + dysphagia; no abdominal pain Physical Exam Constitutional: + ill appearing (chronically ill appearing); no acute distress Neck: trachea midline Respiratory: normal respiratory effort; no respiratory distress Cardiovascular: Rate/Rhythm: regular rate Gastrointestinal (Abdomen): Percussion/Palpation: abdomen soft; abdomen nontender Results & Data ([facility]) Vital Signs (Past 12 Hours) Vital Signs Temp Pulse Resp BP BP Pulse Ox 09/08/19 07:59 36.4 C L 70 19 119/78 97 09/08/19 03:52 36.5 C 83 18 138/90 98 09/08/19 00:00 36.7 C 71 18 116/71 97 Laboratory Results 09/08/19 09/07/19 Range/Units 06:30 06:44 Sodium 138 (136-145) mmol/L Potassium 3.9 (3.5-5.1) mmol/L Chloride 104 (98-107) mmol/L Carbon Dioxide 27 (21-32) mmol/L Anion Gap 7.0 (3-11) BUN 10 (7-18) mg/dl Creatinine 0.79 0.76 (0.6-1.4) mg/dl Est Cr Clr Drug Dosing 136.6 140.6 ml/min Est GFR ( Amer) 110.8 112.5 Est GFR (Non-Af Amer) 95.6 97.1 BUN/Creatinine Ratio 13.4 (10-20) Glucose 64 L (70-99) mg/dl Calcium 8.5 (8.5-10.1) mg/dl
[2019-09-08] MEDS: METHADONE HCL 5 MG TAB PO SCH ×2 (09:10→21:02)
[2019-09-08] MEDS: METOPROLOL SUCC 50MG EXT REL TAB PO SCH ×2 (09:11→21:03)
[2019-09-08] MEDS: ASPIRIN 81 MG ECTAB PO SCH (09:11)
[2019-09-08] MEDS: CHECK FENTANYL PATCH PLACEMENT SCH ×3 (09:12→23:18)
[2019-09-08] MEDS: IBUPROFEN 800 MG TAB PO SCH ×3 (09:26→21:02)
[2019-09-08] MEDS: LACTOBACILLUS ACIDOPHILUS (FLORANEX) TAB PO SCH ×3 (09:26→21:02)
[2019-09-08] MEDS: GABAPENTIN 300 MG CAP PO SCH ×3 (09:26→21:03)
--- NOTE | 2019-09-08 09:33 | Consultation Report ---
DATE OF CONSULTATION: 09/08/2019 REASON FOR CONSULTATION: Metastatic esophageal cancer (hepatic mets). DATE OF DIAGNOSIS: 05/31/2019. HISTORY OF PRESENT ILLNESS: Mr. Alvarez is an obtunded 64-year-old gentleman who suffers from stage IV esophageal cancer, was admitted on 09/04/2019 with altered mental function., confusion, fevers, and lethargy. He was also noted to be hypotensive, tachycardic, suspicious for emerging sepsis. The patient had been seen a couple of days prior to admission because of hypoxia. CTA of the chest had revealed no pulmonary embolism; however, did reveal a right lower lobe infiltrate thought to be aspiration pneumonia versus lymphangitic spread. The patient was placed on antibiotics prophylactically; however, blood cultures and sputum have been negative thus far. No pathogens to date have been identified. Mr. Alvarez himself did not impart a great deal of information, answered a few simple questions, but was lethargic through most of my encounter. Mr. Alvarez has been started on aggressive pain management including fentanyl patch and methadone, receiving Dilaudid in our facility. He is currently under the care of the Palliative service. From what his nurse imparts to me both Mr. Alvarez and his want to pursue salvage treatment; however, they also appear to be somewhat unrealistic in regards to his survivability. He suffers from aggressive terminal disease, but if his performance status improves after this recent insult I would be happy to reconvene with him in the outpatient setting to discuss salvage treatment options. My other concern is his diagnosis was established back in early May. He apparently completed palliative radiation therapy, I suspect to the esophagus itself to help with dysphagia, but will convene with Drs. Napier or Jama to get details on his treatment. He has not received systemic treatment as of the present time. Apparently, he was scheduled as a new patient with our service and obviously missed that appointment because of hospitalizations. PAST MEDICAL HISTORY: Positive for acute hypoxic respiratory failure, atrial fibrillation, anxiety, metastatic esophageal cancer, chronic kidney disease, gastroesophageal reflux disease, hypertension, nonischemic cardiomyopathy, pneumonia and rheumatoid arthritis. PAST SURGICAL HISTORY: Includes cardiac catheterization, tooth extraction, colonoscopy. MEDICATIONS: Prior to admission include metoprolol 50 mg p.o. b.i.d., aspirin 81 mg p.o. daily, methadone 5 mg p.o. t.i.d., morphine 15 mg p.o. q. 6 hours p.r.n., fentanyl, I believe it is 50 mcg 1 patch applied q.72 hours, Lactinex 1 tablet p.o. t.i.d., gabapentin 600 mg p.o. daily, extra strength Tylenol 1000 mg p.o. 6 hours, Mucinex 1 tablespoon p.o. daily p.r.n., Naloxone 4 mg intranasally UD p.r.n., MiraLax 17 grams p.o. daily, hydroxychloroquine 400 mg p.o. daily, gabapentin 300 mg p.o. in the morning and noon. ALLERGIES: No known drug allergies. FAMILY HISTORY: Maternal grandfather suffered from diabetes. No further information could be extracted from the patient. SOCIAL HISTORY: He lives with his spouse. He consumes beer and wine, frequency unknown. Nonsmoker and non-illicit drug user. REVIEW OF SYSTEMS: Unobtainable because of the patient's mental state. PHYSICAL EXAMINATION: GENERAL: He is a somnolent, lethargic 64-year-old gentleman, answers a few questions, but otherwise nonverbal. VITAL SIGNS: Temperature 36.5, pulse 83, respirations 18, blood pressure 138/90. SKIN: Cool to touch. Turgor is fair. Noted stasis dermatitis involving his lower extremities about mid mata down to his ankles. No petechiae or ecchymosis noted. HEENT: Limited examination again because of lack of patient cooperation. Oral mucosa is dry. No buccal lesions or ulcerations. NECK: Supple. No palpable peripheral lymphadenopathy in the cervical or supraclavicular regions. HEART: Regular rate and rhythm. LUNGS: Clear to auscultation bilaterally, distant breath sounds. Could not appreciate rales, rhonchi otherwise. GASTROINTESTINAL: Abdomen is soft, nontender, nondistended. Bowel sounds are hypoactive. No rigidity or guarding. EXTREMITIES: Again, no clubbing, cyanosis or edema. Stasis dermatitis is noted on skin exam. Strength testing not done. NEUROLOGIC: The patient does arouse to direct questioning, but unable to assess further motor and sensory components. LABORATORY DATA: These are from 09/06/2019. WBC count 13,780, hemoglobin 8.4, platelet count 396,000. Sodium is more recent from 09/07/2019, 138, potassium 3.9, chloride 104, carbon dioxide 27, creatinine 0.76, BUN 10, alkaline phosphatase markedly elevated at 949, AST 140. Total bilirubin 1.2. IMPRESSION: 1. Metabolic encephalopathy. 2. Fever. 3. Right lower lobe pneumonia, possible aspiration versus lymphangitic spread. 4. Metastatic esophageal cancer (liver mets, bilateral pulmonary mets) biopsy proven 05/31/2019. 5. Chronic pain syndrome. 6. Normocytic normochromic anemia. PLAN: I have been asked to render an opinion on Mr. Alvarez's case. Unfortunately, Erik himself did not impart any helpful information during this morning's encounter. I gathered information from the chart and from the patient's nurse who expressed a desire Mr. Alvarez and his would like to pursue salvage therapy. Unfortunately, he suffers from terminal state. His performance status is suboptimal at the present time, but would be more than happy to convene with the patient and his family once he is through this most recent clinical consult. I need to speak to Dr. Yun/Dr. Napier from radiation oncology to get a better handle on how extensive his treatment and to what areas. It would be prudent to obtain more characteristics on his tumor, perhaps HER-2/alvino status as to direct salvage therapy should the patient decide to pursue. There are several options including standard FOLFOX, combination cisplatin and gemcitabine, Taxotere in combination with cisplatin, or paclitaxel in combination with cisplatin. All these regimens are quite toxic and the patient would need to be optimally well to tolerate. I would suggest even with optimal response I do not think this gentleman has survival beyond 6 months; without treatment, he probably has a month or two. Adenocarcinoma of the esophagus tends to be very aggressive once it spreads beyond the esophagus. I would be more than happy to discuss further with patient's over the phone. We will continue to periodically check on his status. Perhaps somewhere along the way if patient and desire treatment, consider MediPort placement.
[2019-09-08] MEDS ORDERED: LIDOCAINE HCL 2% 2 ML VIAL/AMP(20MG/ML) INFIL ONE (14:59)
[2019-09-08] MEDS ORDERED: fentaNYL citrate 100 MCG/2 ML VIAL ONE (14:59)
[2019-09-08] MEDS ORDERED: ONDANSETRON INJ 2 MG/ML 2 ML VIAL ONE (14:59)
--- NOTE | 2019-09-08 15:14 | History & Physical Bridge Note ---
Date of Service September 08, 2019 History & Physical Bridge Note I have examined the patient, reviewed the History & Physical and in the interval since the performance of the History & Physical I have noted the following changes of clinical significance: no changes noted Spoke to his and she consented for EGD with possible esophageal stent
[2019-09-08] MEDS ORDERED: PROPOFOL IV EMULSION 10 MG/ML 20 ML VIAL IV ONE (15:18)
[2019-09-08] MEDS ORDERED: ETOMIDATE 2 MG/ML 20 ML VIAL IV ONE (15:18)
--- NOTE | 2019-09-08 15:58 | Operative Report ---
Post Operative Report Pre & Post Diagnosis Operation Date: 09/08/19 07:00 Pre-Op Diagnosis: Metastatic esophageal cancer Post-Op Diagnosis: Metastatic esophageal cancer I identified the patient and participated in the time-out.: Yes Procedure Operation Date: 09/08/19 07:00 Actual Procedures p Esophagogastroduodenoscopy with Stent Placement - Agustina Schaeffer MD Surgeon Agustina Schaeffer MD Virtualization Engineer None Estimated Blood Loss 0 Findings See Below (Esophageal tumor with obstruction, esophageal stent placed) Specimens None Description of Procedure EGD I attest to the content of the Intraoperative Record and any orders documented therein. Any exceptions are noted below.
--- NOTE | 2019-09-08 16:15 | GI REPORT ---
Patient Name: Erik Alvarez Procedure Date: 09/08/2019 2:53 PM Date of : 1955 Admit Type: Inpatient Age: 64 Gender: Male Attending MD: Agustina Schaeffer MD Procedure: Upper GI endoscopy Providers: Agustina Schaeffer MD Referring MD: Yimi Mederos, Mike Hightower MD Indications: Therapeutic procedure, Dysphagia, For palliative stenting of stenosing neoplasm of the esophagus, Vomiting Medicines: General Anesthesia Complications: No immediate complications. Estimated Blood Loss: Estimated blood loss: none. Procedure: Pre-Anesthesia Assessment: - Prior to the procedure, a History and Physical was performed, and patient medications, allergies and sensitivities were reviewed. The patient's tolerance of previous anesthesia was reviewed. - The patient is unable to give consent secondary to the patient's altered mental status. The alternatives, risks and benefits of the procedure were discussed at length with the patient's spouse. The patient's proxy verbalized understanding of the risks as well as the alternatives and wished to proceed with the procedure. - Patient identification and proposed procedure were verified prior to the procedure by the physician and the nurse. The procedure was verified in the procedure room. - Pre-procedure physical examination revealed no contraindications to sedation. After obtaining informed consent, the endoscope was passed under direct vision. Throughout the procedure, the patient's blood pressure, pulse, and oxygen saturations were monitored continuously. The Endoscope was introduced through the mouth, and advanced to the second part of duodenum. The upper GI endoscopy was accomplished without difficulty. The patient tolerated the procedure well. Findings: A large, fungating and ulcerating mass with spontaneous blood oozing was found in the lower third of the esophagus, 38 to 45 cm from the incisors. The mass was completely obstructing and circumferential (involving 100% of the lumen circumference). This was stented with a 20 mm x 12.5 cm Evolution partially covered controlled-release stent with a 25 mm flange under fluoroscopic guidance, proximal margin at 35 cm from the incisors. I personally interpretted the fluoroscopy images. The entire examined stomach was normal. The duodenal bulb and second portion of the duodenum were normal. Impression: - Obstructing, malignant esophageal tumor was found in the lower third of the esophagus. Partially covered esophageal stent placed. Recommendation: - [facility]. - Clear liquid diet today then advance to full liquid diet tomorrow then soft diet afterwards and follow specific esophageal stent modified diet. - Avoid bread and toast, tough meat, hard boiled or fried egg, fruits like (orange, grapefruit, pineapple), Potato skins, Salad, Raw vegetables, Chips. - Recall GI if needed. Agustina Schaeffer MD 09/08/2019 4:15:01 PM This report has been signed electronically. Note Initiated On: 09/08/2019 2:53 PM Number of Addenda: 0 I attest to the content of the Intraoperative Record and orders documented therein, exceptions below {[id number]}
--- NOTE | 2019-09-08 16:21 | Fluoroscopy Report ---
FL chest 1V frontal CLINICAL HISTORY: EGD WITH STENT PLACEMENT COMPARISON STUDY: Chest CT September 04, 2019. Chest radiograph September 05, 2019. FLUOROSCOPY TIME: 28 seconds. FLUOROSCOPIC IMAGES: 7 FINDINGS: Fluoroscopy was provided for endoscopy with placement of a distal esophageal stent. Stent a ppears appropriately positioned. IMPRESSION: Fluoroscopy provided for distal esophageal stent placement. ACT 112: Negative or not required by law. Electronically signed by: Quincy Spears M.D. 09/08/2019 4:19 PM
[2019-09-08] MEDS ORDERED: NALOXONE HCL 0.4 MG/1 ML VIAL/CARP IV PRN (16:34)
[2019-09-08] MEDS ORDERED: ePHEDrine sulfate 50 MG/ML AMP IV PRN (16:34)
[2019-09-08] MEDS ORDERED: ATROPINE SULFATE 0.1 MG/ML 10ML SYR IV PRN (16:34)
[2019-09-08] MEDS ORDERED: LABETALOL HCL IV 5 MG/ML 20ML IV PRN (16:34)
[2019-09-08] MEDS ORDERED: FLUMAZENIL 0.1 MG/1 ML 10 ML VIAL IV PRN (16:34)
[2019-09-08] MEDS: fentaNYL citrate 100 MCG/2 ML VIAL IV PRN ×2 (16:41→16:48)
--- NOTE | 2019-09-08 16:44 | Hospitalist Progress Note ---
Date of Service September 08, 2019 Assessment & Plan (1) Pneumonia: Possible Health care associated vs Aspiration Presented with sepsis syndrome Received IV Vanco and Zosyn and continued with intravenous Zosyn day / Appreciate ID input and recommendation Blood cultures are negative and sputum culture- light normal jenifer No aspiration as per speech Possible aspiration Speak peech therapy eval: no aspiration noted Patient has recurrent vomiting since 09/06/2019 GI consulted. Status post EGD with placement of esophageal stent Diet as per GI recommendation Chronic pain secondary to metastatic esophageal cancer Appreciate palliative care input and recommendation and pain management (2) Metabolic encephalopathy: likely multifactorial: from Pneumonia -- management as above from pain medications -- follows with Dr. Perdomo for pain management related to Bone Mets, she is consulted on the case Fentanyl reduced from 50 to 25mcg Gabapentin being tapered down, now 300mg daily Methadone 5mg TID continued continue usual Morphine PO Ibuprofen 800mg TID added (3) Metastatic adenocarcinoma to bone: per Dr. 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 Per oncology, plans to start Taxol and Herceptin within next two weeks which will be palliative. PET and echo to be done first with followup. He is a member of [employer]. Recent conversations with regarding her wish to seek a second opinion. She is planning to try and see someone at [facility]. Cont Methadone 5mg TID, restart Fentanyl at lower dose 37.5mcg q72h, cont morphine prn breakthrough pain. Patient would like to establish with [facility] Oncology service for 2nd opinion Appreciate Dr. Reno's input and recommendation (4) Right ventricular dysfunction: RV dysfunction seen on echo appears euvolemic Cardiology consulted--> avoid worsening of preload, no further intervention at this time (5) Hypoxia: Multiple contributors here including pneumonia, diffuse metastatic disease and right heart failure. Management of above conditions as noted above Wean off oxygen supplement accordingly (6) Rheumatoid arthritis: Hold home Plaquenil for now in setting of infection. Additionally want to avoid prolonged QTc in setting of methadone. -- discussed with Dr. Stuart, may hold Plaquenil until antibiotics completed (7) Prolonged QT interval: resolved off the plaquenil monitor (8) Nonischemic cardiomyopathy: Last echo October 2018 revealed a normalized ejection fraction. Preserved EF at this time with some inferior hypokinesis and RV dysfunction. -- euvolemic (9) Paroxysmal atrial fibrillation: Hx of Eliquis which was stopped after a negative event monitor performed by cardiology. Takes metoprolol regularly. Currently in sinus rhythm. (10) Anemia: chronic and at baseline. No overt bleeding. Likely secondary to chronic disease. (11) DVT prophylaxis: Lovenox Full Code Disposition lives with at home has not been ambulating for the past 3 months secondary to pain OT consulted Admission and Anticipated Discharge Date Admission Date: September 04, 2019 Subjective The patient was seen and examined in telemetry unit He looked anxious with minimal distress but did not have any complaints He is a status post EGD with esophageal stent placement Review of Systems Review of Systems: All systems reviewed and are unremarkable except as noted below Respiratory: + dyspnea on exertion; no cough Cardiovascular: no chest pain and no palpitations Musculoskeletal: + back pain Physical Exam Physical Exam: Lying in bed very anxious but without any significant distress Constitutional: well developed, well nourished, + acute distress, + ill appearing and + obese Eyes: PERRL, conjunctivae normal, anicteric sclerae ENMT: external ear and nose normal, oropharynx normal Neck: trachea midline, no thyromegaly Respiratory: normal respiratory effort; no respiratory distress Auscultation: lungs clear to auscultation bilaterally Cardiovascular: Rate/Rhythm: regular rate and regular rhythm Heart Sounds: no murmur Gastrointestinal (Abdomen): Inspection/Auscultation: abdomen normal to inspection; abdomen not distended Percussion/Palpation: abdomen soft; abdomen nontender Musculoskeletal: No acute pain involving any joints Neurologic: moves all extremities; no focal motor deficits Lymphatic: no cervical or axillary lymphadenopathy Results & Data Results & Data ([facility]) Vital Signs (Past 12 Hours) Vital Signs Temp Pulse Resp BP BP Pulse Ox 09/08/19 14:38 37 C 85 20 148/90 H 99 09/08/19 11:30 36.7 C 79 19 114/67 98 09/08/19 09:40 94 09/08/19 09:08 93 H 145/76 H 09/08/19 07:59 36.4 C L 70 19 119/78 97 Laboratory Results BMP 09/08/19 06:30 Creatinine 0.79 Medications Administered Current Inpatient Medications Acetaminophen (Tylenol) 650 mg PO Q4H PRN PRN Reason: Pain or Fever Stop: 10/04/19 10:29 Aspirin (Ecotrin Ectab) 81 mg PO DAILY@0800 [facility] Stop: 10/05/19 07:59 Last Admin: 09/08/19 09:11 Dose: 81 mg Documented by: Enoxaparin Sodium (Lovenox) 40 mg SQ Q24H [facility] Stop: 10/04/19 17:59 Last Admin: 09/07/19 19:28 Dose: 40 mg Documented by: Fentanyl (Duragesic) 12 mcg TD Q3D@1999 [facility] Stop: 09/19/19 19:59 Last Admin: 09/05/19 21:10 Dose: 12 mcg Documented by: Fentanyl (Duragesic) 25 mcg TD Q3D [facility] Stop: 09/21/19 14:59 Last Admin: 09/07/19 16:19 Dose: 25 mcg Documented by: Gabapentin (Neurontin) 300 mg PO BID@08,1199 [facility] Stop: 10/05/19 07:59 Last Admin: 09/08/19 12:36 Dose: Not Given Documented by: Gabapentin (Neurontin) 300 mg PO DAILY@1999 [facility] Stop: 10/07/19 19:59 Last Admin: 09/07/19 19:29 Dose: 300 mg Documented by: Gadobutrol (Gadavist 65ml) 11.5 ml IV ONCE PRN PRN Reason: Interaction Checking Stop: 09/10/19 01:00 Last Admin: 09/06/19 00:33 Dose: 11.5 ml Documented by: Heparin Sodium (Porcine) (Heparin Sod 100 Unit/Ml Flush) 5 ml FLUSH PRN PRN PRN Reason: Flush Stop: 10/04/19 23:44 Last Admin: 09/07/19 02:16 Dose: 5 ml Documented by: Lorazepam (Ativan) 2 mg in 4 mls @ 4 mls/min IV PRN PRN PRN Reason: seizures Stop: 10/05/19 19:43 Piperacillin Sod/Tazobactam (Sod 3.375 gm/ Dextrose) 115 mls @ 28.75 mls/hr IV Q8H [facility]; Protocol Stop: 09/13/19 09:59 Last Infusion: 09/08/19 13:00 Dose: Infused Documented by: Promethazine HCl 6.25 mg/ (Sodium Chloride) 50.25 mls @ 202 mls/hr IV Q6H PRN PRN Reason: Nausea And Vomiting Stop: 10/06/19 12:23 Ibuprofen (Motrin) 800 mg PO TID [facility] Stop: 10/05/19 20:59 Last Admin: 09/08/19 13:45 Dose: Not Given Documented by: Lactobacillus Acidophilus (Floranex) 1 tab PO TID@0800,1199,1999 [facility] Stop: 10/04/19 19:59 Last Admin: 09/08/19 12:35 Dose: Not Given Documented by: Methadone HCl (Dolophine) 10 mg PO Q12 [facility] Stop: 09/22/19 08:59 Last Admin: 09/08/19 09:10 Dose: 10 mg Documented by: Metoprolol Succinate (Toprol Xl) 50 mg PO BID@799,1999 [facility] Stop: 10/04/19 19:59 Last Admin: 09/08/19 09:11 Dose: 50 mg Documented by: Miscellaneous (Fentanyl Patch Check Placement) 1 ea N/A QS [facility] Stop: 10/07/19 15:59 Last Admin: 09/08/19 09:12 Dose: 1 ea Documented by: Miscellaneous (Fentanyl Patch Remove & Waste) 1 ea N/A Q3D@1459 [facility] Stop: 10/10/19 14:58 Miscellaneous Information (Consult) 1 ea N/A UD PRN PRN Reason: Consult Stop: 10/06/19 08:49 Morphine Sulfate (Morphine Sulfate Ir) 15 mg PO Q6H PRN PRN Reason: Pain Stop: 09/18/19 12:49 Last Admin: 09/04/19 13:28 Dose: 15 mg Documented by: Polyethylene Glycol (Miralax Powder Packet) 17 gm PO DAILY PRN PRN Reason: constipation Stop: 10/04/19 12:49 Psyllium Hydrophilic Mucilloid (Metamucil) 1 pkt PO DAILY PRN PRN Reason: Diarrhea Stop: 10/04/19 13:28
--- NOTE | 2019-09-08 17:03 | Anesthesiology Progress Note ---
Date of Service September 08, 2019 Anesthesia Post Procedure Vital Signs Vital Signs: Temp Pulse Pulse Resp BP BP Pulse Ox 09/08/19 16:55 36.6 C 90 20 143/89 H 95 09/08/19 16:45 87 21 131/80 95 09/08/19 16:35 94 H 23 110/92 94 09/08/19 16:28 36.1 C L 93 H 21 133/114 H 99 09/08/19 14:38 37 C 85 20 148/90 H 99 09/08/19 11:30 36.7 C 79 19 114/67 98 09/08/19 09:40 94 09/08/19 09:08 93 H 145/76 H 09/08/19 07:59 36.4 C L 70 19 119/78 97 09/08/19 03:52 36.5 C 83 18 138/90 98 09/08/19 00:00 36.7 C 71 18 116/71 97 09/07/19 19:30 36.7 C 70 18 112/76 98 Pain Intensity Bilateral Generalized: Pain Intensity: 3 Transfer of Care Handoff Completed per policy Notes Mental Status: alert / awake / arousable Patient Amnestic to Procedure: Yes Nausea / Vomiting: adequately controlled Pain: adequately controlled Airway Patency, RR, SpO2: stable & adequate BP & HR: stable & adequate Hydration State: stable & adequate Anesthetic Complications: no major complications apparent
[2019-09-08] MEDS: ENOXAPARIN INJ 40 MG/0.4 ML SYR SQ SCH (19:37)
[2019-09-09] MEDS: PIPERACILLIN/TAZOBACTAM 3.375 GM in DEXTROSE 5% 100 ML IV SCH ×3 (00:40→17:26)
[2019-09-09] MEDS ORDERED: ALUMINUM/MAGNESIUM/SIMETH (MAALOX MAX) 30 ML UDC ONE (02:12)
[2019-09-09] MEDS: ALUMINUM/MAGNESIUM/SIMETH (MAALOX MAX) 30 ML UDC PO PRN (02:13)
[2019-09-09] MEDS ORDERED: PANTOprazole 40 MG in SYRINGE 0 ML IV ONE (05:24)
[2019-09-09 06:20] LABS: Creatinine Clr Calc Pharmacy 126.4 ml/min; Est GFR (African American) 107.5; Est GFR (Non-African American) 92.7
[2019-09-09] MEDS: METHADONE HCL 5 MG TAB PO SCH ×2 (08:45→21:15)
[2019-09-09] MEDS: GABAPENTIN 300 MG CAP PO SCH ×3 (08:45→21:15)
[2019-09-09] MEDS: METOPROLOL SUCC 50MG EXT REL TAB PO SCH ×2 (08:45→21:15)
[2019-09-09] MEDS: LACTOBACILLUS ACIDOPHILUS (FLORANEX) TAB PO SCH ×3 (08:45→21:14)
[2019-09-09] MEDS: IBUPROFEN 800 MG TAB PO SCH (08:45)
[2019-09-09] MEDS: CHECK FENTANYL PATCH PLACEMENT SCH ×3 (08:47→23:54)
[2019-09-09] MEDS: ASPIRIN 81 MG ECTAB PO SCH (08:47)
--- NOTE | 2019-09-09 09:19 | Communication Note ---
Date of Service: September 09, 2019 Post-stent diet discussed with nursing. No nausea, vomiting since stent placement. Will advance diet per EGD note recommendations. Please recall if needed.
[2019-09-09] MEDS: PANTOprazole 40 MG in SYRINGE 0 ML IV SCH (11:38)
[2019-09-09] MEDS: IBUPROFEN 200 MG/10 ML UDC PO SCH ×2 (13:22→21:15)
--- NOTE | 2019-09-09 13:40 | Cardiology Progress Note ---
Date of Service September 09, 2019 Assessment & Plan (1) Right ventricular dysfunction: New finding. Likely represents progressive pulmonary pathology. Unclear whether this is due to active pneumonia versus further metastatic disease. No further cardiac intervention indicated at this time. Would recommend avoiding decrease of preload Okay to DC telemetry or to home from a cardiac standpoint. (2) Pneumonia: (3) Metastatic adenocarcinoma to bone: (4) Cancer related pain: (5) Paroxysmal atrial fibrillation: Subjective Patient seen and examined, medical records reviewed. Rather anxious but without complaints status post EGD. Denies chest pain, shortness of breath, palpitations, lightheadedness, dizziness or syncope. Telemetry reviewed: Normal sinus rhythm without arrhythmia or significant ectopy. Review of Systems Review of Systems: All systems reviewed & are unremarkable except as noted in HPI & below Physical Exam Physical Exam: General: Awake, alert and oriented x 3. No acute distress. HEENT: Normocephalic, atraumatic. Pupils equal, round and reactive to light and accommodation. Extraocular muscles are intact. Anicteric sclera. Moist mucous membranes. Neck: No JVD. No bruit. Cardiovascular: Regular. Positive S-4. Normal S-1 and S-2. No S-3. 3/6 holosystolic ejection murmur, 5th intercostal space, mid-clavicular line without radiation. No rubs. Pulmonary: Clear to auscultation bilaterally. No rales, rhonchi, or wheezing. Abdomen: Bowel sounds x 4, soft. No rebound, guarding or tenderness. No organomegaly. Extremities: No clubbing, cyanosis or edema. +2 pedal pulses bilaterally. Skin: Warm and dry. Results & Data Vital Signs (Past 12 Hours) Vital Signs Temp Pulse Resp BP Pulse Ox 09/09/19 12:00 37 C 81 16 134/82 95 09/09/19 07:18 37.1 C 94 H 18 152/92 H 96 09/09/19 04:00 36.6 C 100 H 19 159/103 H 98
--- NOTE | 2019-09-09 14:59 | Hospitalist Progress Note ---
Date of Service September 09, 2019 Assessment & Plan (1) Pneumonia: Possible Health care associated vs Aspiration Presented with sepsis syndrome Received IV Vanco and Zosyn and continued with intravenous Zosyn day 6/7 Appreciate ID input and recommendation Blood cultures are negative and sputum culture- light normal jenifer No aspiration as per speech Possible aspiration Speak peech therapy eval: no aspiration noted Patient has recurrent vomiting since 09/06/2019 GI consulted. Status post EGD with placement of esophageal stent Diet as per GI recommendation Chronic pain secondary to metastatic esophageal cancer Appreciate palliative care input and recommendation and pain management Will continue current pain medications (2) Metabolic encephalopathy: likely multifactorial: from Pneumonia -- management as above from pain medications -- follows with Dr. Perdomo for pain management related to Bone Mets, she is consulted on the case Fentanyl reduced from 50 to 25mcg Gabapentin being tapered down, now 300mg daily Methadone 5mg TID continued continue usual Morphine PO Ibuprofen 800mg TID added (3) Metastatic adenocarcinoma to bone: per Dr. 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 Per oncology, plans to start Taxol and Herceptin within next two weeks which will be palliative. PET and echo to be done first with followup. He is a member of [employer]. Recent conversations with regarding her wish to seek a second opinion. She is planning to try and see someone at [facility]. Cont Methadone 5mg TID, restart Fentanyl at lower dose 37.5mcg q72h, cont morphine prn breakthrough pain. Patient would like to establish with [facility] service for 2nd opinion Appreciate Dr. Reno's input and recommendation Discussed with Dr. Reno-not planning for any salvage chemo right away which is going to be of limited efficacy. He will try to call the tomorrow Prognosis remains poor (4) Right ventricular dysfunction: RV dysfunction seen on echo appears euvolemic Cardiology consulted--> avoid worsening of preload, no further intervention at this time No acute cardiac symptoms (5) Hypoxia: Multiple contributors here including pneumonia, diffuse metastatic disease and right heart failure. Management of above conditions as noted above Wean off oxygen supplement accordingly (6) Rheumatoid arthritis: Hold home Plaquenil for now in setting of infection. Additionally want to avoid prolonged QTc in setting of methadone. -- discussed with Dr. Stuart, may hold Plaquenil until antibiotics completed (7) Prolonged QT interval: resolved off the plaquenil monitor (8) Nonischemic cardiomyopathy: Last echo October 2018 revealed a normalized ejection fraction. Preserved EF at this time with some inferior hypokinesis and RV dysfunction. -- euvolemic (9) Paroxysmal atrial fibrillation: Hx of Eliquis which was stopped after a negative event monitor performed by cardiology. Takes metoprolol regularly. Currently in sinus rhythm. (10) Anemia: chronic and at baseline. No overt bleeding. Likely secondary to chronic disease. (11) DVT prophylaxis: Lovenox Full Code Disposition lives with at home has not been ambulating for the past 3 months secondary to pain OT consulted Admission and Anticipated Discharge Date Admission Date: September 04, 2019 Subjective The patient was seen and examined in telemetry unit He looked anxious with minimal distress but did not have any complaints He is a status post EGD with esophageal stent placement 09/09/2019 The patient was seen and examined in telemetry unit He remains drowsy and pleasantly confused Denies any acute symptoms Has not had a very good night sleep last night Review of Systems Review of Systems: All systems reviewed and are unremarkable except as noted below Respiratory: + dyspnea on exertion; no cough Musculoskeletal: + back pain Physical Exam Physical Exam: Lying in bed drowsy and generally weak Constitutional: well developed, well nourished, + ill appearing and + obese Eyes: PERRL, conjunctivae normal, anicteric sclerae ENMT: external ear and nose normal, oropharynx normal Neck: trachea midline, no thyromegaly Respiratory: normal respiratory effort; no respiratory distress Auscultation: lungs clear to auscultation bilaterally Cardiovascular: Rate/Rhythm: regular rate and regular rhythm Heart Sounds: no murmur Gastrointestinal (Abdomen): Inspection/Auscultation: abdomen normal to inspec tion; abdomen not distended Percussion/Palpation: abdomen soft; abdomen nontender Neurologic: moves all extremities; no focal motor deficits Lymphatic: no cervical or axillary lymphadenopathy Results & Data Results & Data ([facility]) Vital Signs (Past 12 Hours) Vital Signs Temp Pulse Resp BP Pulse Ox 09/09/19 12:00 37 C 81 16 134/82 95 09/09/19 07:18 37.1 C 94 H 18 152/92 H 96 09/09/19 04:00 36.6 C 100 H 19 159/103 H 98 Laboratory Results BMP 09/09/19 05:28 Creatinine 0.85 Medications Administered Current Inpatient Medications Acetaminophen (Tylenol) 650 mg PO Q4H PRN PRN Reason: Pain or Fever Stop: 10/04/19 10:29 Al Hydrox/Mg Hydrox/Simethicone (Maalox Max) 30 ml PO Q6H PRN PRN Reason: Indigestion Stop: 10/09/19 02:06 Last Admin: 09/09/19 02:13 Dose: 30 ml Documented by: Aspirin (Ecotrin Ectab) 81 mg PO DAILY@0800 [facility] Stop: 10/05/19 07:59 Last Admin: 09/09/19 08:47 Dose: 81 mg Documented by: Enoxaparin Sodium (Lovenox) 40 mg SQ Q24H [facility] Stop: 10/04/19 17:59 Last Admin: 09/08/19 19:37 Dose: 40 mg Documented by: Fentanyl (Duragesic) 12 mcg TD Q3D@1999 [facility] Stop: 09/19/19 19:59 Last Admin: 09/05/19 21:10 Dose: 12 mcg Documented by: Fentanyl (Duragesic) 25 mcg TD Q3D [facility] Stop: 09/21/19 14:59 Last Admin: 09/07/19 16:19 Dose: 25 mcg Documented by: Gabapentin (Neurontin) 300 mg PO BID@08,1200 [facility] Stop: 10/05/19 07:59 Last Admin: 09/09/19 13:22 Dose: Not Given Documented by: Gabapentin (Neurontin) 300 mg PO DAILY@1999 [facility] Stop: 10/07/19 19:59 Last Admin: 09/08/19 21:03 Dose: 300 mg Documented by: Gadobutrol (Gadavist 65ml) 11.5 ml IV ONCE PRN PRN Reason: Interaction Checking Stop: 09/10/19 01:00 Last Admin: 09/06/19 00:33 Dose: 11.5 ml Documented by: Heparin Sodium (Porcine) (Heparin Sod 100 Unit/Ml Flush) 5 ml FLUSH PRN PRN PRN Reason: Flush Stop: 10/04/19 23:44 Last Admin: 09/07/19 02:16 Dose: 5 ml Documented by: Lorazepam (Ativan) 2 mg in 4 mls @ 4 mls/min IV PRN PRN PRN Reason: seizures Stop: 10/05/19 19:43 Last Admin: 09/09/19 09:12 Dose: 4 mls/min Documented by: Piperacillin Sod/Tazobactam (Sod 3.375 gm/ Dextrose) 115 mls @ 28.75 mls/hr IV Q8H [facility]; Protocol Stop: 09/10/19 23:59 Last Infusion: 09/09/19 13:22 Dose: Infused Documented by: Promethazine HCl 6.25 mg/ (Sodium Chloride) 50.25 mls @ 202 mls/hr IV Q6H PRN PRN Reason: Nausea And Vomiting Stop: 10/06/19 12:23 Pantoprazole Sodium 40 mg/ (Syringe) 10 mls @ 5 mls/min IV DAILY@1100 [facility] Stop: 10/09/19 10:59 Last Admin: 09/09/19 11:38 Dose: 5 mls/min Documented by: Ibuprofen (Motrin) 800 mg PO TID [facility] Stop: 10/09/19 13:59 Last Admin: 09/09/19 13:22 Dose: Not Given Documented by: Lactobacillus Acidophilus (Floranex) 1 tab PO TID@0800,1199,1999 [facility] Stop: 10/04/19 19:59 Last Admin: 09/09/19 13:22 Dose: Not Given Documented by: Methadone HCl (Dolophine) 10 mg PO Q12 [facility] Stop: 09/22/19 08:59 Last Admin: 09/09/19 08:45 Dose: 10 mg Documented by: Metoprolol Succinate (Toprol Xl) 50 mg PO BID@799,1999 [facility] Stop: 10/04/19 19:59 Last Admin: 09/09/19 08:45 Dose: 50 mg Documented by: Miscellaneous (Fentanyl Patch Check Placement) 1 ea N/A QS [facility] Stop: 10/07/19 15:59 Last Admin: 09/09/19 08:47 Dose: 1 ea Documented by: Miscellaneous (Fentanyl Patch Remove & Waste) 1 ea N/A Q3D@1459 [facility] Stop: 10/10/19 14:58 Miscellaneous Information (Consult) 1 ea N/A UD PRN PRN Reason: Consult Stop: 10/06/19 08:49 Morphine Sulfate (Morphine Sulfate Ir) 15 mg PO Q6H PRN PRN Reason: Pain Stop: 09/18/19 12:49 Last Admin: 09/04/19 13:28 Dose: 15 mg Documented by: Polyethylene Glycol (Miralax Powder Packet) 17 gm PO DAILY PRN PRN Reason: constipation Stop: 10/04/19 12:49 Psyllium Hydrophilic Mucilloid (Metamucil) 1 pkt PO DAILY PRN PRN Reason: Diarrhea Stop: 10/04/19 13:28
[2019-09-09] MEDS ORDERED: LORazepam 0.5 MG TAB PO PRN (15:20)
--- NOTE | 2019-09-09 16:33 | Palliative Care Progress Note ---
Date of Service September 09, 2019 Assessment & Plan (1) Goals of care, counseling/discussion: -64 year old male patient with PMH stage IV esophageal cancer s/p XRT completed 07/01/2019, mets to lungs and bone, has not started systemic therapy yet, htn, RA-on Plaquenil, chronic lower extremity lymphedema, cardiomyopathy with EF 30% diagnosed via cardiac catheterization June 2018, EF now >70% with severely reduced RV function, who presented to the ED with fevers, confusion and lethargy. Patient was in the hospital on 08/01 with septicemia and again on 08/16 briefly for confusion and fevers. Upon arrival in ED three days ago, he was hypotensive, tachycardic, and lethargic. Patient was also requiring oxygen. CTA obtained-- no PE, but did show RLL infiltrate vs. metastatic disease. Aspiration risk due to lethargy. His lactate was slightly elevated at 2.1, now at 1.4. Patient was placed on abx prophylactically for possible sepsis, however blood cultures and sputum culture negative so far. Urine cx and blood cultures negative. Patient has been intermittently spiking fevers-last elevated temp was on 09/04.Echocardiogram performed-- hyperdynamic LV systolic function with EF >70%, also with new finding of severely reduced right ventricular systolic function. Per cardiology, could represent progressive pulmonary disease. Palliative care is consulted to assist with pain management. Patient is known to palliative care service. -Patient's methadone was increased to 10 mg every 12 on 09/07, patient somnolent, may be due 2 AM Ativan versus current opioids. We will decrease his fentanyl patch to 12 mcg -monitor pain control. Plan will be to wean off the fentanyl as this may be causing his episodes of altered mental status along with his fevers- fentanyl absorption is increased with fevers. -Called patient's and left a message so I can update her on his medication changes. Collaborated with attending physician Dr. Mederos -Patient still plans on starting chemotherapy when he is able. He lives at home with his who is very supportive. -We will continue to follow and assist with his pain related medications. (2) Pneumonia: (3) Right ventricular dysfunction: (4) Cancer related pain: Subjective Patient seen and examined, patient did not respond to voice or touch. Nursing reported patient did not sleep well overnight, he was restless this a.m. received a dose of IV Ativan. Patient's methadone was increased to 10 mg every 12 hours on 09/07, will decrease his fentanyl patch due to somnolence, plan is to wean gabapentin as tolerated. Patient underwent esophageal stent on 09/07-diet as per GI. Review of Systems Review of Systems: Unobtainable due to reduced consciousness Physical Exam Physical Exam: PE: Patient appears comfortable Respirations: Unlabored, no rhonchi CV: Regular rate, no increased edema Abdomen: Soft, no grimace on palpation Neuro: Unresponsive to voice or touch Results & Data Vital Signs (Past 12 Hours) Vital Signs Temp Pulse Resp BP Pulse Ox 09/09/19 15:55 98.1 F 83 18 136/88 96 09/09/19 12:00 98.6 F 81 16 134/82 95 09/09/19 07:18 98.8 F 94 H 18 152/92 H 96 PG Care Time/CCT Total # of Minutes Spent Total Time Spent with Patient: Total time spent 35 minutes greater than 50% of the time spent at bedside assessing patient's current status as well as collaborating with attending physician on hospital unit. Coding Level of Care Code 40057 Subseq Hosp Care Lvl 3 Diagnoses Goals of care, counseling/discussion Z71.89 Pneumonia J18.9 Right ventricular dysfunction I51.9 Cancer related pain G89.3 Time Spent (min) 35
[2019-09-09] MEDS: ENOXAPARIN INJ 40 MG/0.4 ML SYR SQ SCH (17:26)
[2019-09-10] MEDS: MoRPHine SULFATE IR 15 MG TAB (IMMEDIATE RELEASE) PO PRN (01:52)
[2019-09-10] MEDS: PIPERACILLIN/TAZOBACTAM 3.375 GM in DEXTROSE 5% 100 ML IV SCH ×3 (01:57→17:38)
[2019-09-10] MEDS: METHADONE HCL 5 MG TAB PO SCH (08:51)
[2019-09-10] MEDS: GABAPENTIN 300 MG CAP PO SCH ×3 (08:52→20:33)
[2019-09-10] MEDS: PANTOprazole 40 MG in SYRINGE 0 ML IV SCH (08:52)
[2019-09-10] MEDS: CHECK FENTANYL PATCH PLACEMENT SCH ×3 (08:52→23:57)
[2019-09-10] MEDS: ASPIRIN 81 MG ECTAB PO SCH (08:53)
[2019-09-10] MEDS: LACTOBACILLUS ACIDOPHILUS (FLORANEX) TAB PO SCH ×3 (08:53→20:33)
[2019-09-10] MEDS: METOPROLOL SUCC 50MG EXT REL TAB PO SCH ×2 (08:53→20:34)
[2019-09-10] MEDS: IBUPROFEN 200 MG/10 ML UDC PO SCH ×3 (08:54→20:33)
[2019-09-10 09:38] LABS: Basophils # (auto) 0.06 K/uL (0-0.2); Basophils % (auto) 0.4 %; Eosinophils # (auto) 0.33 K/uL (0-0.5); Eosinophils % (auto) 2.1 %; Hematocrit (blood only) 26.6 % (42-52); Hemoglobin 8.2 g/dL (14.0-18.0); Immature Granulocytes # (auto) 0.22 K/uL (0.00-0.02); Immature Granulocytes % (auto) 1.4 %; Lymphocytes # (auto) 0.64 K/uL (1.2-3.4); Lymphocytes % (auto) 4.1 %; Mean Corpuscular Hemoglobin 27.9 pg (25-34); Mean Corpuscular Hgb Conc 30.8 g/dL (32-36); Mean Corpuscular Volume 90.5 fL (80-100); Mean Platelet Volume 9.2 fL (7.4-10.4); Monocytes # (auto) 1.68 K/uL (0.11-0.59); Monocytes % (auto) 10.8 %; Neutrophils # (auto) 12.65 K/uL (1.4-6.5); Neutrophils % (auto) 81.2 %; Nucleated RBC # (auto) 0.02 K/uL (0-0); Nucleated RBC % (auto) 0.1 %; Platelet Count 403 K/uL (130-400); RDW Coefficient of Variation 19.4 % (11.5-14.5); Red Blood Count 2.94 M/uL (4.7-6.1); White Blood Count 15.58 K/uL (4.8-10.8)
--- NOTE | 2019-09-10 09:44 | XRay Report ---
XR chest 1V portable CLINICAL HISTORY: 64 years-old Male presenting with pneumonia. TECHNIQUE: Portable upright AP view of the chest was obtained. COMPARISON: 09/05/2019. FINDINGS: The patient is SUE rotated. Right internal jugular Mediport has been accessed and terminates within t he internal jugular vein as on prior exam. Atherosclerosis of the aortic arch. Cardiac silhouette enl arged. Added density with vascular and interstitial prominence of the right lung. This has slightly d ecreased from prior exam. Several nodules are noted at the left lung base. No large effusion or pneum othorax. Degenerative changes of the thoracic spine. Upper abdomen normal. IMPRESSION: 1. Decreasing right lung infiltrate with some degree of asymmetric venolymphatic congestion and/or i nterstitial infiltrate remaining. 2. Redemonstration of pulmonary nodules best visualized at the left lung base compatible with known metastatic disease. ACT 112: Negative or not required by law. Electronically signed by: Justin Gtz M.D. 09/10/2019 9:43 AM
[2019-09-10 09:56] LABS: Albumin Level 1.7 gm/dl (3.4-5.0); BUN Creatinine Ratio 12.9 (10-20); Calcium 8.9 mg/dl (8.5-10.1); Creatinine Clr Calc Pharmacy 136.9 ml/min; Est GFR (African American) 110.8; Est GFR (Non-African American) 95.6; Magnesium 2.2 mg/dl (1.8-2.4); Potassium 3.8 mmol/L (3.5-5.1)
[2019-09-10 10:11] LABS: Albumin Globulin Ratio 0.4 (0.9-2); Globulin 3.9 gm/dl (2.5-4.0); Phosphorus 2.3 mg/dl (2.5-4.9); Total Protein 5.6 gm/dl (6.4-8.2)
[2019-09-10 13:07] LABS: Appearance Urine Turbid (Clear); Bacteria Urine Automated Negative (Negative); Blood Urine Negative (Negative); Color Urine Dark Yellow; Glucose Urine UA Negative (Negative); Ketones Urine Trace (Negative); Leukocyte Esterase Urine 1+ (Negative); Nitrite Urine Negative (Negative); Protein Urine 1+ (Negative); Specific Gravity Urine 1.033 (1.000-1.030); Urobilinogen Urine Negative (Negative)
[2019-09-10 13:11] LABS: Bilirubin Urine 2+ (Negative)
[2019-09-10 13:13] LABS: Ictotest Urine Positive (Negative)
--- NOTE | 2019-09-10 13:22 | Palliative Care Progress Note ---
Date of Service September 10, 2019 Assessment & Plan (1) Goals of care, counseling/discussion: -64 year old male patient with PMH stage IV esophageal cancer s/p XRT completed 07/01/2019, mets to lungs and bone, has not started systemic therapy yet, htn, RA-on Plaquenil, chronic lower extremity lymphedema, cardiomyopathy with EF 30% diagnosed via cardiac catheterization June 2018, EF now >70% with severely reduced RV function, who presented to the ED with fevers, confusion and lethargy. Patient was in the hospital on 08/01 with septicemia and again on 08/16 briefly for confusion and fevers. Upon arrival in ED three days ago, he was hypotensive, tachycardic, and lethargic. Patient was also requiring oxygen. CTA obtained-- no PE, but did show RLL infiltrate vs. metastatic disease. Aspiration risk due to lethargy. His lactate was slightly elevated at 2.1, now at 1.4. Patient was placed on abx prophylactically for possible sepsis, however blood cultures and sputum culture negative so far. Urine cx and blood cultures negative. Patient has been intermittently spiking fevers-last elevated temp was on 09/04.Echocardiogram performed-- hyperdynamic LV systolic function with EF >70%, also with new finding of severely reduced right ventricular systolic function. Per cardiology, could represent progressive pulmonary disease. Palliative care is consulted to assist with pain management. Patient is known to palliative care service. -Patient's methadone was increased to 10 mg every 12 hours on 09/07, patient more alert on exam today. - Will stop fentanyl as this may be causing his altered mental status -continue methadone at 10 mg every 12 hours, continue PRN morphine for breakthrough pain. -Called patient's -updated her on patient's condition and plan of care. reports she has not heard from GI regarding his procedure-collaborated with attending physician Dr. Mederos -Patient still plans on starting chemotherapy when he is able. He lives at home with his who is very supportive. -We will continue to follow and assist with his pain related medications. (2) Pneumonia: (3) Right ventricular dysfunction: (4) Cancer related pain: Subjective Patient seen and examined this a.m., spoke with patient's on 2 separate occasions today. Patient easily aroused, speech is slow and mumbled. Patient required 1 PRN morphine at proximate 2 AM, no other PRN meds pain medicines required Patient had a 25 mcg fentanyl patch in place-this was to be decreased to 12 mcg yesterday-we will discontinue fentanyl altogether, removed patch during exam. Notified nursing of discontinuation of fentanyl as well as time of patch removal. Review of Systems Review of Systems: Unobtainable due to cognitive status Physical Exam Physical Exam: PE: Patient arousable, quickly dozes off HEENT: EOMI, hearing within normal limits Respirations: Clear breath sounds, unlabored CV: Regular rate, lower extremity edema unchanged Abdomen: Soft, nontender Neuro: Improving cognition Results & Data Vital Signs (Past 12 Hours) Vital Signs Temp Pulse Resp BP Pulse Ox 09/10/19 11:27 97.7 F 88 18 124/75 98 09/10/19 07:18 97.9 F 98 H 27 H 134/84 98 09/10/19 03:37 98.4 F 99 H 18 112/71 100 PG Care Time/CCT Total # of Minutes Spent Total Time Spent with Patient: Total time spent 35 minutes with greater than 50% of the time at bedside assessing patient's current comfort level as well as assessing cognition. Updated patient's and collaborated with attending physician Coding Level of Care Code 54016 Subseq Hosp Care Lvl 3 Diagnoses Goals of care, counseling/discussion Z71.89 Pneumonia J18.9 Right ventricular dysfunction I51.9 Cancer related pain G89.3 Time Spent (min) 35
--- NOTE | 2019-09-10 13:46 | Cardiology Progress Note ---
Date of Service September 10, 2019 Assessment & Plan (1) Right ventricular dysfunction: New finding. Likely represents progressive pulmonary pathology. Unclear whether this is due to active pneumonia versus further metastatic disease. No further cardiac intervention indicated at this time. Would recommend avoiding decrease of preload Okay to DC telemetry or to home from a cardiac standpoint. We will sign off, please call with questions or concerns. (2) Pneumonia: (3) Metastatic adenocarcinoma to bone: (4) Cancer related pain: (5) Paroxysmal atrial fibrillation: Subjective Patient seen and examined, medical records reviewed. Patient currently in significant distress from pain and rather incoherent. Telemetry reviewed: Normal sinus rhythm without arrhythmia or significant ectopy. Review of Systems Review of Systems: Unobtainable due to cognitive status Physical Exam Physical Exam: General: Awake, alert. Currently in moderate distress. HEENT: Normocephalic, atraumatic. Pupils equal, round and reactive to light and accommodation. Extraocular muscles are intact. Anicteric sclera. Moist mucous membranes. Neck: No JVD. No bruit. Cardiovascular: Regular. Positive S-4. Normal S-1 and S-2. No S-3. 3/6 holosystolic ejection murmur, 5th intercostal space, mid-clavicular line without radiation. No rubs. Pulmonary: Clear to auscultation bilaterally. No rales, rhonchi, or wheezing. Abdomen: Bowel sounds x 4, soft. No rebound, guarding or tenderness. No organomegaly. Extremities: No clubbing, cyanosis or edema. +2 pedal pulses bilaterally. Skin: Warm and dry. Results & Data Vital Signs (Past 12 Hours) Vital Signs Temp Pulse Resp BP Pulse Ox 09/10/19 11:27 36.5 C 88 18 124/75 98 09/10/19 07:18 36.6 C 98 H 27 H 134/84 98 09/10/19 03:37 36.9 C 99 H 18 112/71 100
--- NOTE | 2019-09-10 13:55 | Hospitalist Progress Note ---
Date of Service September 10, 2019 Assessment & Plan (1) Pneumonia: Possible Health care associated vs Aspiration Presented with sepsis syndrome Received IV Vanco and Zosyn and continued with intravenous Zosyn day 6/7 Appreciate ID input and recommendation Blood cultures are negative and sputum culture- light normal jenifer No aspiration as per speech Repeat chest x-ray which showed decreasing pneumonic consolidation Remains very weak and lethargic Possible aspiration Speak peech therapy eval: no aspiration noted Patient has recurrent vomiting since 09/06/2019 GI consulted. Status post EGD with placement of esophageal stent Diet as per GI recommendation Not being able to eating or drinking due to extreme lethargy Chronic pain secondary to metastatic esophageal cancer Appreciate palliative care input and recommendation and pain management Will continue current pain medications Acute pain medications are on hold and will continue methadone for now Appreciate palliative care input and recommendation (2) Metabolic encephalopathy: likely multifactorial: from Pneumonia -- management as above from pain medications -- follows with Dr. Perdomo for pain management related to Bone Mets, she is consulted on the case Fentanyl reduced from 50 to 25mcg Gabapentin being tapered down, now 300mg daily Methadone 5mg TID continued continue usual Morphine PO Ibuprofen 800mg TID added Worsening metabolic encephalopathy Multifactorial-cancer with metastasis remains the main cause, infection has to be ruled out, administration of multiple pain medications will need to be adjusted Updated the (3) Metastatic adenocarcinoma to bone: per Dr. 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 Per oncology, plans to start Taxol and Herceptin within next two weeks which will be palliative. PET and echo to be done first with followup. He is a member of [employer]. Recent conversations with regarding her wish to seek a second opinion. She is planning to try and see someone at [facility] [facility]. Cont Methadone 5mg TID, restart Fentanyl at lower dose 37.5mcg q72h, cont morphine prn breakthrough pain. Patient would like to establish with [facility] service for 2nd opinion Appreciate Dr. Reno's input and recommendation Discussed with Dr. Reno-not planning for any salvage chemo right away which is going to be of limited efficacy. He will try to call the tomorrow Prognosis remains poor (4) Right ventricular dysfunction: RV dysfunction seen on echo appears euvolemic Cardiology consulted--> avoid worsening of preload, no further intervention at this time No acute cardiac symptoms We will try to decrease volume overload (5) Hypoxia: Multiple contributors here including pneumonia, diffuse metastatic disease and right heart failure. Management of above conditions as noted above Wean off oxygen supplement accordingly (6) Rheumatoid arthritis: Hold home Plaquenil for now in setting of infection. Additionally want to avoid prolonged QTc in setting of methadone. -- discussed with Dr. Stuart, may hold Plaquenil until antibiotics completed (7) Prolonged QT interval: resolved off the plaquenil monitor (8) Nonischemic cardiomyopathy: Last echo October 2018 revealed a normalized ejection fraction. Preserved EF at this time with some inferior hypokinesis and RV dysfunction. -- euvolemic (9) Paroxysmal atrial fibrillation: Hx of Eliquis which was stopped after a negative event monitor performed by cardiology. Takes metoprolol regularly. Currently in sinus rhythm. (10) Anemia: chronic and at baseline. No overt bleeding. Likely secondary to chronic disease. (11) DVT prophylaxis: Lovenox Full Code Disposition lives with at home has not been ambulating for the past 3 months secondary to pain PT and OT have been consulted Admission and Anticipated Discharge Date Admission Date: September 04, 2019 Subjective The patient was seen and examined in telemetry unit He looked anxious with minimal distress but did not have any complaints He is a status post EGD with esophageal stent placement 09/09/2019 The patient was seen and examined in telemetry unit He remains drowsy and pleasantly confused Denies any acute symptoms Has not had a very good night sleep last night 09/10/2019 The patient was seen and examined in telemetry unit He has been more alert this morning He remains extremely weak and lethargic but not in any acute distress He has not been able to eat or drink much Review of Systems Review of Systems: All systems reviewed and are unremarkable except as noted below Respiratory: no cough Musculoskeletal: + back pain Cancer related pain Physical Exam Physical Exam: Lying in bed drowsy and generally weak and lethargic Constitutional: well developed, well nourished, + ill appearing, + obese and + altered mental status Eyes: PERRL, conjunctivae normal, anicteric sclerae ENMT: external ear and nose normal, oropharynx normal Neck: trachea midline, no thyromegaly Respiratory: normal respiratory effort; no respiratory distress Auscultation: lungs clear to auscultation bilaterally Cardiovascular: Rate/Rhythm: regular rate and regular rhythm Heart Sounds: no murmur Gastrointestinal (Abdomen): Inspection/Auscultation: abdomen normal to inspection; abdomen not distended Percussion/Palpation: abdomen soft; abdomen nontender Neurologic: moves all extremities; no focal motor deficits Remains very weak and lethargic and drowsy. Trying to converse normally Psychiatric: Orientation: alert Mood: + depressed mood and + anxious mood Judgement: + poor judgement Lymphatic: no cervical or axillary lymphadenopathy Results & Data Results & Data ([facility]) Vital Signs (Past 12 Hours) Vital Signs Temp Pulse Resp BP Pulse Ox 09/10/19 11:27 36.5 C 88 18 124/75 98 09/10/19 07:18 36.6 C 98 H 27 H 134/84 98 09/10/19 03:37 36.9 C 99 H 18 112/71 100 Laboratory Results Short CBC 09/10/19 Range/Units 09:14 WBC 15.58 H (4.8-10.8) K/uL Hgb 8.2 L (14.0-18.0) g/dL Hct 26.6 L (42-52) % Plt Count 403 H (130-400) K/uL BMP 09/10/19 09:14 Sodium 135 L Potassium 3.8 Chloride 102 Carbon Dioxide 25 BUN 10 Creatinine 0.79 Glucose 88 Calcium 8.9 Liver Function 09/10/19 Range/Units 09:14 Total Bilirubin 1.0 (0.2-1) mg/dl AST 181 H (15-37) U/L ALT 23 (12-78) U/L Alkaline Phosphatase 988 H (45-117) U/L Albumin 1.7 L (3.4-5.0) gm/dl Urine 09/10/19 Range/Units 12:39 Urine Color Dark Yellow Urine Appearance Turbid A (Clear) Urine pH 5.0 (4.5-7.5) Ur Specific [place] 1.033 H (1.000-1.030) Urine Protein 1+ H (Negative) Urine Glucose (UA) Negative (Negative) Medications Administered Current Inpatient Medications Acetaminophen (Tylenol) 650 mg PO Q4H PRN PRN Reason: Pain or Fever Stop: 10/04/19 10:29 Al Hydrox/Mg Hydrox/Simethicone (Maalox Max) 30 ml PO Q6H PRN PRN Reason: Indigestion Stop: 10/09/19 02:06 Last Admin: 09/09/19 02:13 Dose: 30 ml Documented by: Aspirin (Ecotrin Ectab) 81 mg PO DAILY@0800 [facility] Stop: 10/05/19 07:59 Last Admin: 09/10/19 08:53 Dose: 81 mg Documented by: Enoxaparin Sodium (Lovenox) 40 mg SQ Q24H [facility] Stop: 10/04/19 17:59 Last Admin: 09/09/19 17:26 Dose: 40 mg Documented by: Gabapentin (Neurontin) 300 mg PO BID@08,1200 [facility] Stop: 10/05/19 07:59 Last Admin: 09/10/19 12:19 Dose: 300 mg Documented by: Gabapentin (Neurontin) 300 mg PO DAILY@2000 [facility] Stop: 10/07/19 19:59 Last Admin: 09/09/19 21:15 Dose: Not Given Documented by: Heparin Sodium (Porcine) (Heparin Sod 100 Unit/Ml Flush) 5 ml FLUSH PRN PRN PRN Reason: Flush Stop: 10/04/19 23:44 Last Admin: 09/07/19 02:16 Dose: 5 ml Documented by: Lorazepam (Ativan) 2 mg in 4 mls @ 4 mls/min IV PRN PRN PRN Reason: seizures Stop: 10/05/19 19:43 Last Admin: 09/09/19 09:12 Dose: 4 mls/min Documented by: Piperacillin Sod/Tazobactam (Sod 3.375 gm/ Dextrose) 115 mls @ 28.75 mls/hr IV Q8H [facility]; Protocol Stop: 09/10/19 23:59 Last Infusion: 09/10/19 12:40 Dose: Infused Documented by: Promethazine HCl 6.25 mg/ (Sodium Chloride) 50.25 mls @ 202 mls/hr IV Q6H PRN PRN Reason: Nausea And Vomiting Stop: 10/06/19 12:23 Pantoprazole Sodium 40 mg/ (Syringe) 10 mls @ 5 mls/min IV DAILY@1100 [facility] Stop: 10/09/19 10:59 Last Admin: 09/10/19 08:52 Dose: 5 mls/min Documented by: Ibuprofen (Motrin) 800 mg PO TID [facility] Stop: 10/09/19 13:59 Last Admin: 09/10/19 08:54 Dose: 800 mg Documented by: Lactobacillus Acidophilus (Floranex) 1 tab PO TID@0800,1199,1999 [facility] Stop: 10/04/19 19:59 Last Admin: 09/10/19 12:19 Dose: 1 tab Documented by: Lorazepam (Ativan) 0.5 mg PO Q6H PRN PRN Reason: Anxiety Stop: 10/09/19 15:19 Methadone HCl (Dolophine) 10 mg PO Q12 [facility] Stop: 09/22/19 08:59 Last Admin: 09/10/19 08:51 Dose: 10 mg Documented by: Metoprolol Succinate (Toprol Xl) 50 mg PO BID@799,1999 [facility] Stop: 10/04/19 19:59 Last Admin: 09/10/19 08:53 Dose: 50 mg Documented by: Miscellaneous (Fentanyl Patch Check Placement) 1 ea N/A QS [facility] Stop: 10/07/19 15:59 Last Admin: 09/10/19 08:52 Dose: 1 ea Documented by: Miscellaneous (Fentanyl Patch Remove & Waste) 1 ea N/A Q3D@1459 [facility] Stop: 10/10/19 14:58 Last Admin: 09/10/19 12:18 Dose: 1 ea Documented by: Miscellaneous Information (Consult) 1 ea N/A UD PRN PRN Reason: Consult Stop: 10/06/19 08:49 Morphine Sulfate (Morphine Sulfate Ir) 15 mg PO Q6H PRN PRN Reason: Pain Stop: 09/18/19 12:49 Last Admin: 09/10/19 01:52 Dose: 15 mg Documented by: Polyethylene Glycol (Miralax Powder Packet) 17 gm PO DAILY PRN PRN Reason: constipation Stop: 10/04/19 12:49 Psyllium Hydrophilic Mucilloid (Metamucil) 1 pkt PO DAILY PRN PRN Reason: Diarrhea Stop: 10/04/19 13:28
[2019-09-10 14:42] LABS: Amorphous Sediment Urine Present (None Prsent); RBC Urine Automated 0-4 /hpf (0-4); Uric Acid Crystals Urine Present (None Prsent)
--- NOTE | 2019-09-10 17:20 | Electrocardiogram Report ---
Test Reason : Blood Pressure : / mmHG Vent. Rate : 099 BPM Atrial Rate : 099 BPM P-R Int : 160 ms QRS Dur : 082 ms QT Int : 348 ms P-R-T Axes : 101 077 084 degrees QTc Int : 446 ms Poor data quality, interpretation may be adversely affected Normal sinus rhythm Low voltage QRS Septal infarct (cited on or before 06-SEP-2019) Abnormal ECG When compared with ECG of 07-SEP-2019 07:02, No significant change was found Confirmed by Regan Ortega ([id number]) on 09/10/2019 5:20:12 PM Referred By: REFERRED SELF Confirmed By:Regan Ortega
[2019-09-10] MEDS: ENOXAPARIN INJ 40 MG/0.4 ML SYR SQ SCH (17:37)
[2019-09-10] MEDS: METHADONE HCL 10 MG TAB PO SCH (20:35)
[2019-09-11] MEDS ORDERED: SODIUM CHLORIDE 0.9% 500 ML IV SCH (06:15)
[2019-09-11] MEDS: CHECK FENTANYL PATCH PLACEMENT SCH (07:52)
[2019-09-11] MEDS: METOPROLOL SUCC 50MG EXT REL TAB PO SCH ×2 (08:15→22:20)
[2019-09-11] MEDS: METHADONE HCL 10 MG TAB PO SCH ×2 (08:15→22:21)
[2019-09-11] MEDS: GABAPENTIN 300 MG CAP PO SCH ×2 (08:16→11:54)
[2019-09-11] MEDS: ASPIRIN 81 MG ECTAB PO SCH (08:16)
[2019-09-11] MEDS: LACTOBACILLUS ACIDOPHILUS (FLORANEX) TAB PO SCH ×3 (08:16→22:19)
[2019-09-11] MEDS: IBUPROFEN 200 MG/10 ML UDC PO SCH ×2 (08:17→15:34)
[2019-09-11] MEDS: HEPARIN 100 UNIT/ML 5ML FLUSH FLUSH PRN (09:07)
[2019-09-11] MEDS: PANTOprazole 40 MG in SYRINGE 0 ML IV SCH (11:53)
--- NOTE | 2019-09-11 13:42 | Hospitalist Progress Note ---
Date of Service September 11, 2019 Assessment & Plan (1) Pneumonia: Possible Health care associated vs Aspiration Presented with sepsis syndrome Received IV Vanco and Zosyn and continued with intravenous Zosyn day 6/7 Appreciate ID input and recommendation Blood cultures are negative and sputum culture- light normal jenifer No aspiration as per speech Repeat chest x-ray which showed decreasing pneumonic consolidation No signs and/or symptoms of infection Alert and awake with pleasantly confused Has been tolerating his diet and participating in physical therapy Possible aspiration Speak peech therapy eval: no aspiration noted Patient has recurrent vomiting since 09/06/2019 GI consulted. Status post EGD with placement of esophageal stent Diet as per GI recommendation Not being able to eating or drinking due to extreme lethargy Chronic pain secondary to metastatic esophageal cancer Appreciate palliative care input and recommendation and pain management Will continue current pain medications Acute pain medications are on hold and will continue methadone for now Appreciate palliative care input and recommendation Narcotic pain medications are on hold Has been getting methadone only (2) Metabolic encephalopathy: likely multifactorial: from Pneumonia -- management as above from pain medications -- follows with Dr. Perdomo for pain management related to Bone Mets, she is consulted on the case Fentanyl reduced from 50 to 25mcg Gabapentin being tapered down, now 300mg daily Methadone 5mg TID continued continue usual Morphine PO Ibuprofen 800mg TID added Worsening metabolic encephalopathy Multifactorial-cancer with metastasis remains the main cause, infection has to be ruled out, administration of multiple pain medications will need to be adjusted Updated the Much better as of today (3) Metastatic adenocarcinoma to bone: per Dr. 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 Per oncology, plans to start Taxol and Herceptin within next two weeks which will be palliative. PET and echo to be done first with followup. He is a member of [employer]. Recent conversations with regarding her wish to seek a second opinion. She is planning to try and see someone at [facility]. Cont Methadone 5mg TID, restart Fentanyl at lower dose 37.5mcg q72h, cont morphine prn breakthrough pain. Patient would like to establish with [facility] [place] [facility] service for 2nd opinion Appreciate Dr. Reno's input and recommendation Discussed with Dr. Reno-not planning for any salvage chemo right away which is going to be of limited efficacy. He will try to call the tomorrow Prognosis remains poor (4) Right ventricular dysfunction: RV dysfunction seen on echo appears euvolemic Cardiology consulted--> avoid worsening of preload, no further intervention at this time No acute cardiac symptoms We will try to decrease volume overload We will transfer him to medical floor (5) Hypoxia: Multiple contributors here including pneumonia, diffuse metastatic disease and right heart failure. Management of above conditions as noted above Wean off oxygen supplement accordingly (6) Rheumatoid arthritis: Hold home Plaquenil for now in setting of infection. Additionally want to avoid prolonged QTc in setting of methadone. -- discussed with Dr. Stuart, may hold Plaquenil until antibiotics completed (7) Prolonged QT interval: resolved off the plaquenil monitor (8) Nonischemic cardiomyopathy: Last echo October 2018 revealed a normalized ejection fraction. Preserved EF at this time with some inferior hypokinesis and RV dysfunction. -- euvolemic (9) Paroxysmal atrial fibrillation: Hx of Eliquis which was stopped after a negative event monitor performed by cardiology. Takes metoprolol regularly. Currently in sinus rhythm. (10) Anemia: chronic and at baseline. No overt bleeding. Likely secondary to chronic disease. (11) DVT prophylaxis: Lovenox Full Code Disposition lives with at home has not been ambulating for the past 3 months secondary to pain PT and OT have been consulted Admission and Anticipated Discharge Date Admission Date: September 04, 2019 Subjective The patient was seen and examined in telemetry unit He looked anxious with minimal distress but did not have any complaints He is a status post EGD with esophageal stent placement 09/09/2019 The patient was seen and examined in telemetry unit He remains drowsy and pleasantly confused Denies any acute symptoms Has not had a very good night sleep last night 09/10/2019 The patient was seen and examined in telemetry unit He has been more alert this morning He remains extremely weak and lethargic but not in any acute distress He has not been able to eat or drink much 09/11/2019 The patient was seen and examined in telemetry unit He is alert, awake and oriented x2 He has been tolerating diet Remains pleasantly confused with some dysarthria No acute distress at rest Review of Systems Review of Systems: All systems reviewed and are unremarkable except as noted below Musculoskeletal: + back pain Cancer related pain Physical Exam Physical Exam: Lying in bed drowsy and generally weak and lethargic Constitutional: well developed, well nourished, + ill appearing, + obese and + altered mental status Eyes: PERRL, conjunctivae normal, anicteric sclerae ENMT: external ear and nose normal, oropharynx normal Neck: trachea midline, no thyromegaly Respiratory: normal respiratory effort; no respiratory distress Auscultation: lungs clear to auscultation bilaterally Cardiovascular: Rate/Rhythm: regular rate and regular rhythm Heart Sounds: no murmur Gastrointestinal (Abdomen): Inspection/Auscultation: abdomen normal to inspec tion; abdomen not distended Percussion/Palpation: abdomen soft; abdomen nontender Neurologic: moves all extremities; no focal motor deficits Pleasantly confused Psychiatric: Orientation: alert Mood: + depressed mood and + anxious mood Judgement: + poor judgement Lymphatic: no cervical or axillary lymphadenopathy Results & Data Results & Data ([facility]) Vital Signs (Past 12 Hours) Vital Signs Temp Pulse Pulse Resp BP BP Pulse Ox 09/11/19 11:58 36.7 C 82 20 117/76 97 09/11/19 08:00 79 09/11/19 07:33 36.4 C L 74 24 122/75 99 09/11/19 04:05 36.7 C 81 18 149/97 H 97 Medications Administered Current Inpatient Medications Acetaminophen (Tylenol) 650 mg PO Q4H PRN PRN Reason: Pain or Fever Stop: 10/04/19 10:29 Al Hydrox/Mg Hydrox/Simethicone (Maalox Max) 30 ml PO Q6H PRN PRN Reason: Indigestion Stop: 10/09/19 02:06 Last Admin: 09/09/19 02:13 Dose: 30 ml Documented by: Aspirin (Ecotrin Ectab) 81 mg PO DAILY@0800 [facility] Stop: 10/05/19 07:59 Last Admin: 09/11/19 08:16 Dose: 81 mg Documented by: Enoxaparin Sodium (Lovenox) 40 mg SQ Q24H [facility] Stop: 10/04/19 17:59 Last Admin: 09/10/19 17:37 Dose: 40 mg Documented by: Gabapentin (Neurontin) 300 mg PO BID@08,1200 [facility] Stop: 10/05/19 07:59 Last Admin: 09/11/19 11:54 Dose: 300 mg Documented by: Gabapentin (Neurontin) 300 mg PO DAILY@2000 [facility] Stop: 10/07/19 19:59 Last Admin: 09/10/19 20:33 Dose: 300 mg Documented by: Heparin Sodium (Porcine) (Heparin Sod 100 Unit/Ml Flush) 5 ml FLUSH PRN PRN PRN Reason: Flush Stop: 10/04/19 23:44 Last Admin: 09/11/19 09:07 Dose: 5 ml Documented by: Lorazepam (Ativan) 2 mg in 4 mls @ 4 mls/min IV PRN PRN PRN Reason: seizures Stop: 10/05/19 19:43 Last Admin: 09/09/19 09:12 Dose: 4 mls/min Documented by: Promethazine HCl 6.25 mg/ (Sodium Chloride) 50.25 mls @ 202 mls/hr IV Q6H PRN PRN Reason: Nausea And Vomiting Stop: 10/06/19 12:23 Pantoprazole Sodium 40 mg/ (Syringe) 10 mls @ 5 mls/min IV DAILY@1100 [facility] Stop: 10/09/19 10:59 Last Admin: 09/11/19 11:53 Dose: 5 mls/min Documented by: Ibuprofen (Motrin) 800 mg PO TID [facility] Stop: 10/09/19 13:59 Last Admin: 09/11/19 08:17 Dose: 800 mg Documented by: Lactobacillus Acidophilus (Floranex) 1 tab PO TID@0800,1199,1999 [facility] Stop: 10/04/19 19:59 Last Admin: 09/11/19 11:54 Dose: 1 tab Documented by: Lorazepam (Ativan) 0.5 mg PO Q6H PRN PRN Reason: Anxiety Stop: 10/09/19 15:19 Methadone HCl (Dolophine) 10 mg PO Q12 [facility] Stop: 09/24/19 20:59 Last Admin: 09/11/19 08:15 Dose: 10 mg Documented by: Metoprolol Succinate (Toprol Xl) 50 mg PO BID@799,1999 [facility] Stop: 10/04/19 19:59 Last Admin: 09/11/19 08:15 Dose: 50 mg Documented by: Miscellaneous (Fentanyl Patch Check Placement) 1 ea N/A QS [facility] Stop: 10/07/19 15:59 Last Admin: 09/11/19 07:52 Dose: Not Given Documented by: Miscellaneous (Fentanyl Patch Remove & Waste) 1 ea N/A Q3D@1459 [facility] Stop: 10/10/19 14:58 Last Admin: 09/10/19 12:18 Dose: 1 ea Documented by: Morphine Sulfate (Morphine Sulfate Ir) 15 mg PO Q6H PRN PRN Reason: Pain Stop: 09/18/19 12:49 Last Admin: 09/10/19 01:52 Dose: 15 mg Documented by: Polyethylene Glycol (Miralax Powder Packet) 17 gm PO DAILY PRN PRN Reason: constipation Stop: 10/04/19 12:49 Psyllium Hydrophilic Mucilloid (Metamucil) 1 pkt PO DAILY PRN PRN Reason: Diarrhea Stop: 10/04/19 13:28
[2019-09-11] MEDS ORDERED: Nursing to Pharmacy Communication ONE (15:12)
[2019-09-11] MEDS ORDERED: MoRPHine SULFATE IR 15 MG TAB (IMMEDIATE RELEASE) PO PRN (15:39)
[2019-09-11] MEDS: ENOXAPARIN INJ 40 MG/0.4 ML SYR SQ SCH (18:00)
[2019-09-11] MEDS: ALUMINUM/MAGNESIUM/SIMETH (MAALOX MAX) 30 ML UDC PO PRN (18:35)
[2019-09-11] MEDS ORDERED: ALUMINUM/MAGNESIUM/SIMETH (MAALOX MAX) 30 ML UDC PO STA (21:49)
[2019-09-11] MEDS: IBUPROFEN 800 MG TAB PO SCH (22:38)
[2019-09-11] MEDS: GABAPENTIN 100 MG CAP PO SCH (22:39)
[2019-09-12 06:48] LABS: Basophils # (auto) 0.03 K/uL (0-0.2); Basophils % (auto) 0.3 %; Eosinophils # (auto) 0.51 K/uL (0-0.5); Eosinophils % (auto) 4.3 %; Hematocrit (blood only) 27.5 % (42-52); Hemoglobin 8.3 g/dL (14.0-18.0); Immature Granulocytes # (auto) 0.13 K/uL (0.00-0.02); Immature Granulocytes % (auto) 1.1 %; Lymphocytes # (auto) 1.03 K/uL (1.2-3.4); Lymphocytes % (auto) 8.8 %; Mean Corpuscular Hgb Conc 30.2 g/dL (32-36); Mean Corpuscular Volume 92.9 fL (80-100); Mean Platelet Volume 8.9 fL (7.4-10.4); Monocytes # (auto) 0.83 K/uL (0.11-0.59); Monocytes % (auto) 7.1 %; Neutrophils # (auto) 9.21 K/uL (1.4-6.5); Neutrophils % (auto) 78.4 %; Platelet Count 391 K/uL (130-400); RDW Coefficient of Variation 19.5 % (11.5-14.5); Red Blood Count 2.96 M/uL (4.7-6.1); White Blood Count 11.74 K/uL (4.8-10.8)
[2019-09-12 07:10] LABS: Albumin Level 1.7 gm/dl (3.4-5.0); BUN Creatinine Ratio 11.9 (10-20); Calcium 9.1 mg/dl (8.5-10.1); Creatinine Clr Calc Pharmacy 126.9 ml/min; Est GFR (African American) 107.5; Est GFR (Non-African American) 92.7; Magnesium 2.2 mg/dl (1.8-2.4); Potassium 3.7 mmol/L (3.5-5.1)
[2019-09-12 07:24] LABS: Albumin Globulin Ratio 0.4 (0.9-2); Bilirubin,Total 0.8 mg/dl (0.2-1); Phosphorus 2.3 mg/dl (2.5-4.9); Total Protein 5.7 gm/dl (6.4-8.2)
[2019-09-12] MEDS: METHADONE HCL 10 MG TAB PO SCH ×2 (08:56→22:40)
[2019-09-12] MEDS: METOPROLOL SUCC 50MG EXT REL TAB PO SCH ×2 (08:57→22:41)
[2019-09-12] MEDS: LACTOBACILLUS ACIDOPHILUS (FLORANEX) TAB PO SCH ×3 (08:57→22:41)
[2019-09-12] MEDS: ASPIRIN 81 MG ECTAB PO SCH (08:57)
[2019-09-12] MEDS: GABAPENTIN 100 MG CAP PO SCH ×3 (08:57→22:42)
[2019-09-12] MEDS: IBUPROFEN 800 MG TAB PO SCH ×3 (08:58→22:42)
[2019-09-12] MEDS: ALUMINUM/MAGNESIUM/SIMETH (MAALOX MAX) 30 ML UDC PO PRN (09:21)
--- NOTE | 2019-09-12 12:45 | Hospitalist Progress Note ---
Date of Service September 12, 2019 Assessment & Plan (1) Pneumonia: Possible Health care associated vs Aspiration Presented with sepsis syndrome Received IV Vanco and Zosyn and continued with intravenous Zosyn day 6/7 Appreciate ID input and recommendation Blood cultures are negative and sputum culture- light normal jenifer No aspiration as per speech Repeat chest x-ray which showed decreasing pneumonic consolidation No signs and/or symptoms of infection Alert and awake with pleasantly confused Has been tolerating his diet and participating in physical therapy No more symptoms of pneumonia and antibiotic course is finished Possible aspiration Speak peech therapy eval: no aspiration noted Patient has recurrent vomiting since 09/06/2019 GI consulted. Status post EGD with placement of esophageal stent Diet as per GI recommendation Not being able to eating or drinking due to extreme lethargy Chronic pain secondary to metastatic esophageal cancer Appreciate palliative care input and recommendation and pain management Will continue current pain medications Acute pain medications are on hold and will continue methadone for now Appreciate palliative care input and recommendation Narcotic pain medications are on hold Has been getting methadone only Methadone dose has been decreased to 10 mg twice daily More coherent today and has been communicating normally (2) Metabolic encephalopathy: likely multifactorial: from Pneumonia -- management as above from pain medications -- follows with Dr. Perdomo for pain management related to Bone Mets, she is consulted on the case Fentanyl reduced from 50 to 25mcg Gabapentin being tapered down, now 300mg daily Methadone 5mg TID continued continue usual Morphine PO Ibuprofen 800mg TID added Worsening metabolic encephalopathy Multifactorial-cancer with metastasis remains the main cause, infection has to be ruled out, administration of multiple pain medications will need to be adjusted Alkaline phosphatase is worsening likely secondary to bone metastasis Ammonia has been normal No infection at this time His encephalopathy seems to be related to metastatic disease Has had issues with low urine output Has been passing urine normally now Was advised to drink more fluid (3) Metastatic adenocarcinoma to bone: per Dr. 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 Per oncology, plans to start Taxol and Herceptin within next two weeks which will be palliative. PET and echo to be done first with followup. He is a member of [employer]. Recent conversations with regarding her wish to seek a second opinion. She is planning to try and see someone at [facility]. Cont Methadone 5mg TID, restart Fentanyl at lower dose 37.5mcg q72h, cont morphine prn yariel kthrough pain. Patient would like to establish with [facility] Oncology service for 2nd opinion Appreciate Dr. Reno's input and recommendation Discussed with Dr. Reno-not planning for any salvage chemo right away which is going to be of limited efficacy. He will try to call the tomorrow Prognosis remains poor (4) Right ventricular dysfunction: RV dysfunction seen on echo appears euvolemic Cardiology consulted--> avoid worsening of preload, no further intervention at this time No acute cardiac symptoms We will try to decrease volume overload We will transfer him to medical floor (5) Hypoxia: Multiple contributors here including pneumonia, diffuse metastatic disease and right heart failure. Management of above conditions as noted above Wean off oxygen supplement accordingly (6) Rheumatoid arthritis: Hold home Plaquenil for now in setting of infection. Additionally want to avoid prolonged QTc in setting of methadone. -- discussed with Dr. Stuart, may hold Plaquenil until antibiotics completed (7) Prolonged QT interval: resolved off the plaquenil monitor (8) Nonischemic cardiomyopathy: Last echo October 2018 revealed a normalized ejection fraction. Preserved EF at this time with some inferior hypokinesis and RV dysfunction. -- euvolemic (9) Paroxysmal atrial fibrillation: Hx of Eliquis which was stopped after a negative event monitor performed by cardiology. Takes metoprolol regularly. Currently in sinus rhythm. (10) Anemia: chronic and at baseline. No overt bleeding. Likely secondary to chronic disease. (11) DVT prophylaxis: Lovenox Full Code Disposition lives with at home has not been ambulating for the past 3 months secondary to pain PT and OT have been consulted Admission and Anticipated Discharge Date Admission Date: September 04, 2019 Subjective The patient was seen and examined in telemetry unit He looked anxious with minimal distress but did not have any complaints He is a status post EGD with esophageal stent placement 09/09/2019 The patient was seen and examined in telemetry unit He remains drowsy and pleasantly confused Denies any acute symptoms Has not had a very good night sleep last night 09/10/2019 The patient was seen and examined in telemetry unit He has been more alert this morning He remains extremely weak and lethargic but not in any acute distress He has not been able to eat or drink much 09/11/2019 The patient was seen and examined in telemetry unit He is alert, awake and oriented x2 He has been tolerating diet Remains pleasantly confused with some dysarthria No acute distress at rest 09/12/2019 Patient is seen and examined in medical floor He has been much better today Minimally confused and denies any other significant symptoms Has been getting physical therapy Review of Systems Review of Systems: All systems reviewed and are unremarkable except as noted below Musculoskeletal: + back pain Cancer related pain Physical Exam Physical Exam: Lying in bed drowsy and generally weak and lethargic Constitutional: well developed, well nourished, + ill appearing, + obese and + altered mental status Eyes: PERRL, conjunctivae normal, anicteric sclerae ENMT: external ear and nose normal, oropharynx normal Neck: trachea midline, no thyromegaly Respiratory: normal respiratory effort; no respiratory distress Auscultation: lungs clear to auscultation bilaterally Cardiovascular: Rate/Rhythm: regular rate and regular rhythm Heart Sounds: no murmur Gastrointestinal (Abdomen): Inspection/Auscultation: abdomen normal to in spection; abdomen not distended Percussion/Palpation: abdomen soft; abdomen nontender Musculoskeletal: No acute arthritis in any joint Neurologic: moves all extremities; no focal motor deficits Pleasantly confused. Dysarthria is almost gone Psychiatric: Orientation: alert Mood: + depressed mood and + anxious mood Judgement: + poor judgement Lymphatic: no cervical or axillary lymphadenopathy Results & Data Results & Data ([facility]) Vital Signs (Past 12 Hours) Vital Signs Temp Pulse Pulse Resp BP BP Pulse Ox 09/12/19 11:14 36.5 C 86 19 121/78 93 09/12/19 07:27 37.2 C 98 H 18 152/91 H 95 09/12/19 07:12 86 09/12/19 03:29 36.8 C 83 18 130/74 97 Laboratory Results Short CBC 09/12/19 Range/Units 06:36 WBC 11.74 H (4.8-10.8) K/uL Hgb 8.3 L (14.0-18.0) g/dL Hct 27.5 L (42-52) % Plt Count 391 (130-400) K/uL BMP 09/12/19 06:36 Sodium 137 Potassium 3.7 Chloride 102 Carbon Dioxide 28 BUN 10 Creatinine 0.85 Glucose 87 Calcium 9.1 Liver Function 09/12/19 Range/Units 06:36 Total Bilirubin 0.8 (0.2-1) mg/dl AST 178 H (15-37) U/L ALT 27 (12-78) U/L Alkaline Phosphatase 1037 H (45-117) U/L Albumin 1.7 L (3.4-5.0) gm/dl Medications Administered Current Inpatient Medications Acetaminophen (Tylenol) 650 mg PO Q4H PRN PRN Reason: Pain or Fever Stop: 10/04/19 10:29 Al Hydrox/Mg Hydrox/Simethicone (Maalox Max) 30 ml PO Q6H PRN PRN Reason: Indigestion Stop: 10/09/19 02:06 Last Admin: 09/12/19 09:21 Dose: 30 ml Documented by: Aspirin (Ecotrin Ectab) 81 mg PO DAILY@0800 [facility] Stop: 10/05/19 07:59 Last Admin: 09/12/19 08:57 Dose: 81 mg Documented by: Enoxaparin Sodium (Lovenox) 40 mg SQ Q24H [facility] Stop: 10/04/19 17:59 Last Admin: 09/11/19 18:00 Dose: 40 mg Documented by: Gabapentin (Neurontin) 200 mg PO TID@0800,1400,2100 [facility] Stop: 10/11/19 20:59 Last Admin: 09/12/19 08:57 Dose: 200 mg Documented by: Heparin Sodium (Porcine) (Heparin Sod 100 Unit/Ml Flush) 5 ml FLUSH PRN PRN PRN Reason: Flush Stop: 10/04/19 23:44 Last Admin: 09/11/19 09:07 Dose: 5 ml Documented by: Promethazine HCl 6.25 mg/ (Sodium Chloride) 50.25 mls @ 202 mls/hr IV Q6H PRN PRN Reason: Nausea And Vomiting Stop: 10/06/19 12:23 Pantoprazole Sodium 40 mg/ (Syringe) 10 mls @ 5 mls/min IV DAILY@1100 [facility] Stop: 10/09/19 10:59 Last Admin: 09/11/19 11:53 Dose: 5 mls/min Documented by: Ibuprofen (Motrin) 800 mg PO TID [facility] Stop: 10/11/19 20:59 Last Admin: 09/12/19 08:58 Dose: 800 mg Documented by: Lactobacillus Acidophilus (Floranex) 1 tab PO TID@0800,1200,2000 [facility] Stop: 10/04/19 19:59 Last Admin: 09/12/19 08:57 Dose: 1 tab Documented by: Lorazepam (Ativan) 0.5 mg PO Q6H PRN PRN Reason: Anxiety Stop: 10/09/19 15:19 Methadone HCl (Dolophine) 10 mg PO Q12 [facility] Stop: 09/24/19 20:59 Last Admin: 09/12/19 08:56 Dose: 10 mg Documented by: Metoprolol Succinate (Toprol Xl) 50 mg PO BID@799,1999 [facility] Stop: 10/04/19 19:59 Last Admin: 09/12/19 08:57 Dose: 50 mg Documented by: Morphine Sulfate (Morphine Sulfate Ir) 7.5 mg PO Q6H PRN PRN Reason: Pain Stop: 09/25/19 15:38 Polyethylene Glycol (Miralax Powder Packet) 17 gm PO DAILY PRN PRN Reason: constipation Stop: 10/04/19 12:49 Psyllium Hydrophilic Mucilloid (Metamucil) 1 pkt PO DAILY PRN PRN Reason: Diarrhea Stop: 10/04/19 13:28
[2019-09-12] MEDS: HEPARIN 100 UNIT/ML 5ML FLUSH FLUSH PRN (12:57)
[2019-09-12] MEDS: PANTOprazole 40 MG in SYRINGE 0 ML IV SCH (12:57)
[2019-09-12] MEDS: ENOXAPARIN INJ 40 MG/0.4 ML SYR SQ SCH (17:24)
[2019-09-13] MEDS: GABAPENTIN 100 MG CAP PO SCH ×2 (07:39→13:02)
[2019-09-13] MEDS: METHADONE HCL 10 MG TAB PO SCH (07:39)
[2019-09-13] MEDS: IBUPROFEN 800 MG TAB PO SCH ×2 (07:39→13:02)
[2019-09-13] MEDS: METOPROLOL SUCC 50MG EXT REL TAB PO SCH (07:39)
[2019-09-13] MEDS: LACTOBACILLUS ACIDOPHILUS (FLORANEX) TAB PO SCH ×2 (07:40→13:02)
[2019-09-13] MEDS: ASPIRIN 81 MG ECTAB PO SCH (07:40)
[2019-09-13] MEDS: HEPARIN 100 UNIT/ML 5ML FLUSH FLUSH PRN (10:41)
[2019-09-13] MEDS: PANTOprazole 40 MG in SYRINGE 0 ML IV SCH (10:41)
[2019-09-13] MEDS ORDERED: HYDROCORTISONE ACETATE 25 MG SUPP PR PRN (12:28)
[2019-09-13] MEDS ORDERED: HYDROCORTISONE HC 2.5% CRM 30GM TUBE EXT PRN (12:29)
--- NOTE | 2019-09-13 14:10 | Hospitalist Progress Note ---
Date of Service September 13, 2019 Assessment & Plan (1) Pneumonia: Possible Health care associated vs Aspiration Presented with sepsis syndrome Received IV Vanco and Zosyn and continued with intravenous Zosyn day 6/7 Appreciate ID input and recommendation Blood cultures are negative and sputum culture- light normal jenifer No aspiration as per speech Repeat chest x-ray which showed decreasing pneumonic consolidation No signs and/or symptoms of infection Alert and awake with pleasantly confused Has been tolerating his diet and participating in physical therapy No more symptoms of pneumonia and antibiotic course is finished Possible aspiration Speak peech therapy eval: no aspiration noted Patient has recurrent vomiting since 09/06/2019 GI consulted. Status post EGD with placement of esophageal stent Diet as per GI recommendation Not being able to eating or drinking due to extreme lethargy Chronic pain secondary to metastatic esophageal cancer Appreciate palliative care input and recommendation and pain management Will continue current pain medications Acute pain medications are on hold and will continue methadone for now Appreciate palliative care input and recommendation Narcotic pain medications are on hold Has been getting methadone only Methadone dose has been decreased to 10 mg twice daily More coherent today and has been communicating normally Pain medications have been adjusted as per palliative care On discharge he will have methadone 10 mg twice daily, gabapentin 100 mg 3 times daily, MSIR 7.5 mg 4 times daily as needed (2) Metabolic encephalopathy: likely multifactorial: from Pneumonia -- management as above from pain medications -- follows with Dr. Perdomo for pain management related to Bone Mets, she is consulted on the case Fentanyl reduced from 50 to 25mcg Gabapentin being tapered down, now 300mg daily Methadone 5mg TID continued continue usual Morphine PO Ibuprofen 800mg TID added Worsening metabolic encephalopathy Multifactorial-cancer with metastasis remains the main cause, infection has to be ruled out, administration of multiple pain medications will need to be adjusted Alkaline phosphatase is worsening likely secondary to bone metastasis Ammonia has been normal No infection at this time His encephalopathy seems to be related to metastatic disease As above Has had issues with low urine output Has been passing urine normally now Was advised to drink more fluid (3) Metastatic adenocarcinoma to bone: per Dr. 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 Per o ncology, plans to start Taxol and Herceptin within next two weeks which will be palliative. PET and echo to be done first with followup. He is a member of [employer] [facility]. Recent conversations with regarding her wish to seek a second opinion. She is planning to try and see someone [place] [facility] Cont Methadone 5mg TID, restart Fentanyl at lower dose 37.5mcg q72h, cont morphine prn breakthrough pain. Patient would like to establish with [facility] Oncology service for 2nd opinion Appreciate Dr. Reno's input and recommendation Discussed with Dr. Reno-not planning for any salvage chemo right away which is going to be of limited efficacy. He will try to call the tomorrow Prognosis remains poor We will have outpatient appointment with oncologist on Friday/Friday for further management plan (4) Right ventricular dysfunction: RV dysfunction seen on echo appears euvolemic Cardiology consulted--> avoid worsening of preload, no further intervention at this time No acute cardiac symptoms We will try to decrease volume overload We will transfer him to medical floor (5) Hypoxia: Multiple contributors here including pneumonia, diffuse metastatic disease and right heart failure. Management of above conditions as noted above Wean off oxygen supplement accordingly (6) Rheumatoid arthritis: Hold home Plaquenil for now in setting of infection. Additionally want to avoid prolonged QTc in setting of methadone. -- discussed with Dr. Stuart, may hold Plaquenil until antibiotics completed (7) Prolonged QT interval: resolved off the plaquenil monitor (8) Nonischemic cardiomyopathy: Last echo October 2018 revealed a normalized ejection fraction. Preserved EF at this time with some inferior hypokinesis and RV dysfunction. -- euvolemic (9) Paroxysmal atrial fibrillation: Hx of Eliquis which was stopped after a negative event monitor performed by cardiology. Takes metoprolol regularly. Currently in sinus rhythm. (10) Anemia: chronic and at baseline. No overt bleeding. Likely secondary to chronic disease. (11) DVT prophylaxis: Lovenox Full Code Disposition lives with at home has not been ambulating for the past 3 months secondary to pain PT and OT have been consulted Discharged home this afternoon Admission and Anticipated Discharge Date Admission Date: September 04, 2019 Subjective The patient was seen and examined in telemetry unit He looked anxious with minimal distress but did not have any complaints He is a status post EGD with esophageal stent placement 09/09/2019 The patient was seen and examined in telemetry unit He remains drowsy and pleasantly confused Denies any acute symptoms Has not had a very good night sleep last night 09/10/2019 The patient was seen and examined in telemetry unit He has been more alert this morning He remains extremely weak and lethargic but not in any acute distress He has not been able to eat or drink much 09/11/2019 The patient was seen and examined in telemetry unit He is alert, awake and oriented x2 He has been tolerating diet Remains pleasantly confused with some dysarthria No acute distress at rest 09/12/2019 Patient is seen and examined in medical floor He has been much better today Minimally confused and denies any other significant symptoms Has been getting physical therapy 09/13/2019 The patient was seen and examined in medical floor He has been feeling a lot better Confusion is almost gone and denies any significant symptoms except some pain secondary to hemorrhoids without bleeding Has been getting physical therapy Review of Systems Review of Systems: All systems reviewed and are unremarkable except as noted below Musculoskeletal: + back pain Cancer related pain Physical Exam Physical Exam: Lying in bed drowsy and generally weak and lethargic Constitutional: well developed, well nourished, + ill appearing, + obese and + altered mental status Eyes: PERRL, conjunctivae normal, anicteric sclerae ENMT: external ear and nose normal, oropharynx normal Neck: trachea midline, no thyromegaly Respiratory: normal respiratory effort; no respiratory distress Auscultation: lungs clear to auscultation bilaterally Cardiovascular: Rate/Rhythm: regular rate and regular rhythm Heart Sounds: no murmur Gastrointestinal (Abdomen): Inspection/Auscultation: abdomen normal to inspection; abdomen not distended Percussion/Palpation: abdomen soft; abdomen nontender Musculoskeletal: Has chronic pain at the back. Pain is worse with movement. No pain at rest Neurologic: moves all extremities; no focal motor deficits Pleasantly confused Psychiatric: Orientation: alert Mood: + depressed mood and + anxious mood Judgement: + poor judgement Lymphatic: no cervical or axillary lymphadenopathy Results & Data Results & Data ([facility]) Vital Signs (Past 12 Hours) Vital Signs Temp Pulse Resp BP BP Pulse Ox 09/13/19 11:31 36.7 C 78 18 127/76 95 09/13/19 07:14 36.6 C 86 18 115/76 95 09/13/19 03:52 36.7 C 76 18 121/74 91
--- NOTE | 2019-09-13 14:26 | Palliative Care Progress Note ---
Date of Service September 13, 2019 Assessment & Plan (1) Goals of care, counseling/discussion: - Patient is a 64 year old male patient with PMH stage IV esophageal cancer s/p XRT completed 07/01/2019, mets to lungs and bone, has not started systemic therapy yet, htn, RA-on Plaquenil, chronic lower extremity lymphedema, cardiomyopathy with EF 30% diagnosed via cardiac catheterization June 2018, EF now >70% with severely reduced RV function, who presented to the ED with fevers, confusion and lethargy. Patient was in the hospital on 08/01 with septicemia and again on 08/16 briefly for confusion and fevers. Upon arrival in ED on 09/03, he was hypotensive, tachycardic, and lethargic. Patient was also requiring oxygen. CTA obtained-- no PE, but did show RLL infiltrate vs. metastatic disease. Aspiration risk due to lethargy. His lactate was slightly elevated at 2.1, now at 1.4. Patient was placed on abx prophylactically for possible sepsis, however blood cultures and sputum culture negative so far. Urine cx and blood cultures negative. Patient has been intermittently spiking fevers-last elevated temp was on 09/04.Echocardiogram performed-- hyperdynamic LV systolic function with EF >70%, also with new finding of severely reduced right ventricular systolic function. Per cardiology, could represent progressive pulmonary disease. Palliative care is consulted to assist with pain management. Patient is known to palliative care service. -Patient's methadone was increased to 10 mg every 12 hours on 09/07, -patient's morphine was decreased to 7.5 mg as needed, fentanyl patch was weaned down and then discontinued. Gabapentin also weaned-we will wean him to 100 mg 3 times daily and further wean as outpatient. Patient's mental status has returned to his prior baseline -We will continue to contact patient's to updated her on patient's condition, med changes and plan of care. -Patient still plans on starting chemotherapy when he is able. He lives at home with his who is very supportive. -We will continue as an outpatient (2) Pneumonia: (3) Right ventricular dysfunction: (4) Cancer related pain: Subjective Patient awake and alert, no acute distress. Patient alert and oriented, no slurred speech. Patient back to his prior baseline mental status. Patient reports he was able to sit on the side of the bed without any pain or difficulty. Does report some pain when sitting upright for prolonged periods of time-states the pain is be arable. Patient has not required any PRN morphine or PRN Ativan, has tolerated weaning of his gabapentin to 200 mg 3 times daily-we will start a further wean by starting him on a 100 mg 3 times daily, will continue taper as an outpatient. Patient is plan for discharge home today-attempted several times to reach his regarding medication changes-we will continue to try to reach her. is making arrangements for further evaluation regarding cancer care. Patient tolerating a full liquid diet. Review of Systems Review of Systems: Patient denies fever, chills, chest pain, shortness of breath, or abdominal pain Physical Exam Physical Exam: PE: Awake, alert and oriented x4 HEENT: EOMI, hearing within normal limits Respirations: Unlabored, clear breath sounds CV: Regular rate, trace to 1+ lower extremity edema-stable Abdomen: Soft, nontender Neuro alert and oriented x4 Results & Data Vital Signs (Past 12 Hours) Vital Signs Temp Pulse Resp BP BP Pulse Ox 09/13/19 11:31 98.1 F 78 18 127/76 95 09/13/19 07:14 97.9 F 86 18 115/76 95 09/13/19 03:52 98.1 F 76 18 121/74 91 PG Care Time/CCT Total # of Minutes Spent Total Time Spent with Patient: Total time spent 35 minutes with greater than 50% of the time at bedside assessing patient's current status, discussing medication changes as well as plan of care. Patient's goal is to be evaluated at a tertiary care center for options regarding cancer treatment Coding Level of Care Code 42667 Subseq Hosp Care Lvl 3 Diagnoses Goals of care, counseling/discussion Z71.89 Pneumonia J18.9 Right ventricular dysfunction I51.9 Cancer related pain G89.3 Time Spent (min) 35
[2019-09-13 15:38] VITALS: BP 142/84; TEMP 98.6; O2SAT 94
[2019-09-13 16:47] VITALS: PULSE 89
--- NOTE | 2019-09-13 17:29 | Discharge Summary ---
Date of Service September 13, 2019 Admission HPI Per Admitting Provider 64 yo M with known h/o metastatic esophageal adenocarcinoma presented to the ER with acute confusion and fever. He was placed on oxygen, for hypoxia and CXR is relatively clear outside of known metastatic disease. The patient was resuscitated in the ER and prehospital with IVF and broad spectrum antibiotics and his confusion cleared. Blood cultures are pending and he remains slightly hypotensive and tachycardic but is responding to fluids. The patient is very fatigued on my exam, frequently falling asleep, however, is able to wake up and orient to give a history. He denies any recent acute fevers, chills, cough, SOB, respiratory or GI symptoms, or pain outside of his known cancer pain. He acutely became ill last night with fevers and confusion despite feeling well yesterday. He has not started treatment for his cancer, and is working with his oncologist to set this up. Admission Exam Per Admitting Provider Physical Exam: CONSTITUTIONAL: WNWD, vitals as above, generally ill- appearing 2/2 uncontrolled pain. Intermittent lethargy and frequently falling asleep. Difficult to move him around in the bed 2/2 severe pain. EYES: PERRL, normal conjunctivae, no scleral icterus ENT: external ear and nose normal, mucous membranes are dry NECK: trachea midline RESPIRATORY: clear to auscultation bilaterally, no crackles, rales or wheezes, normal respiratory effort. Difficult to auscultate as patient not taking very deep breaths CARDIOVASCULAR: distant heart sounds, regular rate and rhythm, S1 and 2 heard without murmurs, gallops or rubs, no JVD, no peripheral edema GASTROINTESTINAL: soft, nontender, nondistended, no guarding MUSCULOSKELETAL: physically deconditioned and weak, moves all extremities symmetrically SKIN: warm and dry NEUROLOGIC: patellar DTRs -could not elicit as patient is tensing up. PERRL, could not perform EOM of eyes as he wouldn't keep eyes open long enought to test, no facial palsy, no dysarthria. CN 2-12 grossly intact, lethargic PSYCHIATRIC: A&O x 3 when awoken to physical and verbal stimuli but very lethargic and frequently falling asleep. Principal Diagnosis Pneumonia, chronic pain secondary to metastatic esophageal adenocarcinoma , metabolic encephalopathy, rheumatoid arthritis Discharge Exam Constitutional well developed, well nourished, + ill appearing, + obese and + altered mental status Eyes PERRL, conjunctivae normal, anicteric sclerae ENMT external ear and nose normal, oropharynx normal Neck trachea midline, no thyromegaly Respiratory normal respiratory effort; no respiratory distress Auscultation: lungs clear to auscultation bilaterally Cardiovascular Rate/Rhythm: regular rate and regular rhythm Heart Sounds: no murmur Gastrointestinal (Abdomen) Inspection/Auscultation: abdomen normal to inspection; abdomen not distended Percussion/Palpation: abdomen soft; abdomen nontender Neurologic moves all extremities; no focal motor deficits Psychiatric Orientation: alert Mood: + depressed mood and + anxious mood Judgement: + poor judgement Lymphatic no cervical or axillary lymphadenopathy Discharge Data Allergies Allergy/AdvReac Type Severity Reaction Status Date / Time No Known Allergies Allergy Verified 08/09/19 11:33 Consultations 09/04/19 08:29 ED Decision to Admit Stat 09/04/19 10:30 Consult Case Management - Discharge Planning Routine 09/05/19 19:42 Consult Neurology Routine 09/05/19 21:16 Consult Cardiology Routine 09/06/19 08:40 Consult Infectious Diseases Routine 09/06/19 14:48 Consult Palliative Care Routine 09/07/19 12:28 Consult Gastroenterology Routine 09/07/19 18:52 Consult Oncology Routine Procedures Performed Operation Date: 09/08/19 07:00 Actual Procedures p Esophagogastroduodenoscopy with Stent Placement - Agustina Schaeffer MD Ordered Studies 09/04/19 14:03 CT head/brain wo con Stat 09/04/19 14:06 CT angio chest PE protocol Urgent 09/05/19 18:12 CT head/brain wo con Routine 09/05/19 19:42 MR brain wo/w con Routine 09/08/19 15:34 FL chest 1V frontal Routine 09/08/19 16:10 FL fluoroscopy <1hr Routine Hospital Course (1) Pneumonia: Possible Health care associated vs Aspiration Presented with sepsis syndrome Received IV Vanco and Zosyn and continued with intravenous Zosyn day 6/7 Appreciate ID input and recommendation Blood cultures are negative and sputum culture- light normal jenifer No aspiration as per speech Repeat chest x-ray which showed decreasing pneumonic consolidation No signs and/or symptoms of infection Alert and awake with pleasantly confused Has been tolerating his diet and participating in physical therapy No more symptoms of pneumonia and antibiotic course is finished Possible aspiration Speak peech therapy eval: no aspiration noted Patient has recurrent vomiting since 09/06/2019 GI consulted. Status post EGD with placement of esophageal stent Diet as per GI recommendation Not being able to eating or drinking due to extreme lethargy Chronic pain secondary to metastatic esophageal cancer Appreciate palliative care input and recommendation and pain management Will continue current pain medications Acute pain medications are on hold and will continue methadone for now Appreciate palliative care input and recommendation Narcotic pain medications are on hold Has been getting methadone only Methadone dose has been decreased to 10 mg twice daily More coherent today and has been communicating normally Pain medications have been adjusted as per palliative care On discharge he will have methadone 10 mg twice daily, gabapentin 100 mg 3 times daily, MSIR 7.5 mg 4 times daily as needed (2) Metabolic encephalopathy: likely multifactorial: from Pneumonia -- management as above from pain medications -- follows with Dr. Perdomo for pain management related to Bone Mets, she is consulted on the case Fentanyl reduced from 50 to 25mcg Gabapentin being tapered down, now 300mg daily Methadone 5mg TID continued continue usual Morphine PO Ibuprofen 800mg TID added Worsening metabolic encephalopathy Multifactorial-cancer with metastasis remains the main cause, infection has to be ruled out, administration of multiple pain medications will need to be a djusted Alkaline phosphatase is worsening likely secondary to bone metastasis Ammonia has been normal No infection at this time His encephalopathy seems to be related to metastatic disease As above Has had issues with low urine output Has been passing urine normally now Was advised to drink more fluid (3) Metastatic adenocarcinoma to bone: per Dr. 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 Per oncology, plans to start Taxol and Herceptin within next two weeks which will be palliative. PET and echo to be done first with followup. He is a member of [employer]. Recent conversations with regarding her wish to seek a second opinion. She is planning to try and see someone [place] [facility] Methadone 5mg TID, restart Fentanyl at lower dose 37.5mcg q72h, cont morphine prn breakthrough pain. Patient would like [place] [facility] [place] for 2nd opinion Appreciate Dr. Reno's input and recommendation Discussed with Dr. Reno-not planning for any salvage chemo right away which is going to be of limited efficacy. He will try to call the tomorrow Prognosis remains poor We will have outpatient appointment with oncologist on Friday/Friday for further management plan (4) Right ventricular dysfunction: RV dysfunction seen on echo appears euvolemic Cardiology consulted--> avoid worsening of preload, no further intervention at this time No acute cardiac symptoms We will try to decrease volume overload We will transfer him to medical floor (5) Hypoxia: Multiple contributors here including pneumonia, diffuse metastatic disease and right heart failure. Management of above conditions as noted above Wean off oxygen supplement accordingly (6) Rheumatoid arthritis: Hold home Plaquenil for now in setting of infection. Additionally want to avoid prolonged QTc in setting of methadone. -- discussed with Dr. Stuart, may hold Plaquenil until antibiotics completed (7) Prolonged QT interval: resolved off the plaquenil monitor (8) Nonischemic cardiomyopathy: Last echo October 2018 revealed a normalized ejection fraction. Preserved EF at this time with some inferior hypokinesis and RV dysfunction. -- euvolemic (9) Paroxysmal atrial fibrillation: Hx of Eliquis which was stopped after a negative event monitor performed by cardiology. Takes metoprolol regularly. Currently in sinus rhythm. (10) Anemia: chronic and at baseline. No overt bleeding. Likely secondary to chronic disease. (11) DVT prophylaxis: Lovenox Full Code Disposition lives with at home has not been ambulating for the past 3 months secondary to pain PT and OT have been consulted Discharged home this afternoon Total Time Total Time Spent Total Time Spent (In Minutes): 35 minutes Total Time Includes: Examination of the Patient, Discharge Planning, Medication Reconciliation and Communication With Other Providers Discharge Plan Discharge Items Patient Disposition: Home - Home Health Services Reason For Visit: SEPSIS Discharge Diagnosis: Pneumonia, chronic pain secondary to metastatic esophageal adenocarcinoma , metabolic encephalopathy, rheumatoid arthritis Condition on Discharge: Serious Activity: Resume your previous activity Activity Comment: Please take precaution to avoid falls Non-emergency contact: Primary Care Provider Call non-emergency contact if: you have any medication questions Follow-up/Referrals: Grzegorz Jaquez DO [Primary Care Provider] - 09/21/19 10:20 am (09/21/2019 10:20 AM Grzegorz Jaquez DO [facility] ) Diet: Regular Diet Comment: Minced and moist Addtl Attending Provider Instructions: Please take precaution to avoid falls Try to use less of narcotics pain medication Drink fluid up about 1500 mL a day Pending Studies at Discharge: No Stand-Alone Forms: My [facility], Smoking Cessation Medications and DC Order Prescriptions: New hydrocortisone [Proctosol HC] 2.5 % Cream With Perineal Applicator 1 applic EXT BID PRN (Reason: hemorrhoids) 30 Days Qty: 1 RF: 0 gabapentin 100 mg Capsule 100 mg PO TID@0800,1400,2100 30 Days Qty: 90 RF: 0 morphine 15 mg Tablet 7.5 mg PO Q6H PRN (Reason: pain) Qty: 1 RF: 0 Continued hydroxychloroquine 200 mg tablet 400 mg PO DAILY@1999 RF: 0 polyethylene glycol 3350 [Miralax] 17 gram Powder In Packet 17 g PO DAILY PRN (Reason: constipation) Qty: 30 RF: 0 aspirin 81 mg Tablet,Delayed Release (Dr/Ec) 81 mg PO DAILY Qty: 30 RF: 0 naloxone 4 mg/actuation spray,non-aerosol 4 mg intranasal UD PRN (Reason: Opiate Reversal) RF: 0 Metamucil 3.4 gram/5.4 gram Powder 1 tbsp PO DAILY PRN (Reason: Diarrhea) RF: 0 acetaminophen [Tylenol Extra Strength] 500 mg Tablet 1,000 mg PO Q6H RF: 0 Lactinex 1 million cell tablet,chewable 1 tab PO TID Qty: 30 RF: 0 metoprolol succinate 50 mg tablet extended release 24 hr 50 mg PO BID RF: 0 Changed methadone 5 mg tablet 10 mg PO BID Qty: 0 RF: 0 Discontinued gabapentin 300 mg capsule 300 mg PO .AM&NOON RF: 0 gabapentin 300 mg capsule 600 mg PO DAILY@1999 RF: 0 fentanyl 50 mcg/hr patch 72 hour 1 patch TD Q72H 10 Days Qty: 3 RF: 0 morphine 15 mg tablet 15 mg PO Q6H PRN (Reason: Pain) 3 Days Qty: 10 RF: 0 Discharge Orders: Discharge Order (Routine); Ordered 09/13/19 Ordered By: Yimi Mederos Admission Data Admit Date/Time: 09/04/19 08:59 Attending Provider: Yimi Mederos Admit Provider: Eliana Cotton Primary Care Provider: Grzegorz Jaquez Other Providers: [facility] ; Jaren Quintanilla ; Eliana Cotton ; Chapincito Alicea ; Catalino Broderick ; Bailey Johns ; Emmy Perdomo ; Mike Hightower ; Brian Brantley Other Interventions: Discharge Summary Assessment (RN) Last Done: 09/13/19 16:43
[2019-09-13] MEDS ORDERED: GABAPENTIN 100 MG CAP PO SCH (21:00)
== END 2019-09-13 18:25 | disposition home health service (06) | DRG 871 ==
LOC: ED 06:28 → 2S 08:59 → SUATTDRO 08:59 → 2S 09:54 → 2W 09-11 15:14

== ENCOUNTER 2019-09-20 04:50 | Inpatient (IN) ==
[2019-09-20] MEDS ORDERED: SODIUM CHLORIDE 0.9% 1000ML 1,000 ML IV ONE (05:00)
[2019-09-20] MEDS ORDERED: LORazepam 1 MG/2 ML VIAL IV STA (05:00)
--- NOTE | 2019-09-20 05:06 | Emergency Department Note ---
History of Present Illness General Chief complaint: Unresponsive Stated complaint: Unresponsive Time Seen by Provider: 09/20/19 05:00 Source: EMS Mode of arrival: EMS Limitations: altered mental status History of Present Illness Provider complaint: unresponsive episode Onset (ago): unknown This is a 64-year-old male presenting via EMS from home after called 911 as patient was unresponsive. Patient has a significant past medical history including metastatic cancer and is on multiple medications including chronic pain medication. Patient's told EMS she typically wakes up at around 3 AM to check on him because she gives him additional medication for pain prior to bed. When she woke up to check on him she was not able to wake him up. The tried for quite some time to check on him before calling 911. Upon EMS arrival patient had snoring respirations and was unresponsive. They started IVs and checked the patient's blood sugar which was 50. Patient was given D10 in route for a total of 25 g. Patient slowly became more awake in route however still seemed confused and began to get combative. I asked for security to meet them at the door prior to coming into a room. Patient here is awake but agitated, cannot provide any history. Patient did know the year, but was otherwise confused to questions of orientation. No family present at this time. Upon review patient has been admitted several times in this past year. Most recent according to the EMR was earlier this month when patient was admitted with sepsis and pneumonia. Pt seen during a time of high acuity and national emergency pandemic while wearing PPE. Home Medications Home Medications Medication Instructions Recorded Confirmed Type hydrocortisone [Proctosol HC] 1 applic EXT BID PRN 30 Days #1 09/13/19 09/20/19 Rx tube lorazepam [Ativan] 0.5 mg PO Q4 PRN 09/20/19 09/20/19 History Allergies Allergy/AdvReac Type Severity Reaction Status Date / Time No Known Allergies Allergy Verified 09/20/19 05:19 Past Med/Surg History Medical History Acute encephalopathy Acute hypoxemic respiratory failure 06/2018 Acute hypoxemic respiratory failure Afib Recent confinement June 2018 for new diagnosis of heart failure. Paroxysmal A. fib noted during confinement. Patient discharged on Eliquis for anticoagulation.> PT REPORTS NO LONGER ON ELIQUIS> THIS WAS ISOLATED INCIDENT Eliquis discontinued a few months later by ornamental brick installer after outpatient telemetry did not show recurrent AF. Anxiety Atypical chest pain Cancer associated pain (Inactive) Cardiomyopathy Severe LV dysfunction with EF of 30% found on admission June 2018. TTE 11/02/2018 showed resolution of cardiomyopathy with EF greater than 70%. Chronic anemia CKD (chronic kidney disease), stage III Constipation Elevated troponin 06/2018. Cardiac catheterization performed during admission showed severe LV dysfunction with EF of 30% but large-caliber coronaries with minimal irregularities at most. Elevation felt secondary to demand ischemia from cardiomyopathy/fluid overload. GE junction carcinoma GERD (gastroesophageal reflux disease) HX Hypertension Lactic acidosis Malignant neoplasm of gastroesophageal junction REASON FOR PROCEDURE > RADIATION AT PRESENT Metastatic cancer to spine (Inactive) Nonischemic cardiomyopathy Paroxysmal atrial fibrillation Pathologic compression fracture of lumbar vertebra L5 with retropulsion > W/C AT PRESENT Pneumonia (Acute) 06/2018 Rheumatoid arthritis Severe sepsis Stage IV malignant neoplasm of esophagus Status post admission to intensive care unit Surgical History History of cardiac cath JUNE 2018 > FOR C.P/SOB > [facility] > NO STENTS History of tooth extraction Hx of colonoscopy Family History Grandfather (Maternal) Diabetes Social History Preferred Language: Irish Communication Ability: Effective Marine Geologist Required: No Beliefs That Will Affect Care: None marital status: Current Living Situation: Spouse Feels Safe at Home: Yes Smoking Status: Never smoker Second Hand Exposure: No ; Hx Alcohol Use: Yes Alcohol type: beer, wine and hard liquor Hx Substance Use: No Review of Systems Unobtainable due to cognitive status Physical Exam Vital Signs Vital Signs - 24 hr 09/20/19 04:56 09/20/19 05:13 09/20/19 05:14 Temperature 38.4 C H Temperature Source Rectal Pulse Rate 152 H Pulse Rate [Right Finger] Pulse Rhythm [Right Finger] Pulse Strength [Right Finger] Respiratory Rate 18 Respiratory Effort / Characteristics Non-Labored Spontaneous Respiratory Depth Normal Respiratory Pattern Blood Pressure 132/93 Blood Pressure [Right Arm] Blood Pressure Mean 106 Blood Pressure Mean [Right Arm] Blood Pressure Position Lying Pulse Oximetry 87 L 84 L 91 Oxygen Delivery Method Room Air Non-rebreather Non-rebreather Oxygen Flow Rate 10 10 Fraction of Inspired Oxygen SaO2/FiO2 Ratio Sepsis Recent Fever Within 48 Hours Yes Sepsis Action Taken by Nursing No Action Required 09/20/19 05:17 09/20/19 05:19 09/20/19 05:45 Temperature Temperature Source Pulse Rate Pulse Rate [Right Finger] 111 H Pulse Rhythm [Right Finger] Regular Pulse Strength [Right Finger] Normal Respiratory Rate 22 Respiratory Effort / Characteristics Non-Labored Spontaneous Respiratory Depth Normal Respiratory Pattern Blood Pressure Blood Pressure [Right Arm] 132/93 Blood Pressure Mean Blood Pressure Mean [Right Arm] 106 Blood Pressure Position Pulse Oximetry 97 97 88 L Oxygen Delivery Method Non-rebreather Non-rebreather Non-rebreather Oxygen Flow Rate 10 10 15 Fraction of Inspired Oxygen SaO2/FiO2 Ratio Sepsis Recent Fever Within 48 Hours Sepsis Action Taken by Nursing 09/20/19 05:52 09/20/19 05:56 09/20/19 06:18 Temperature Temperature Source Pulse Rate Pulse Rate [Right Finger] 133 H 133 H 130 H Pulse Rhythm [Right Finger] Pulse Strength [Right Finger] Respiratory Rate 22 22 26 H Respiratory Effort / Characteristics Non-Labored Respiratory Depth Respiratory Pattern Blood Pressure Blood Pressure [Right Arm] 138/109 H 152/84 H 103/71 Blood Pressure Mean Blood Pressure Mean [Right Arm] 118 106 81 Blood Pressure Position Pulse Oximetry 99 96 92 Oxygen Delivery Method BiPAP BiPAP BiPAP Oxygen Flow Rate 100 Fraction of Inspired Oxygen SaO2/FiO2 Ratio Sepsis Recent Fever Within 48 Hours Sepsis Action Taken by Nursing 09/20/19 06:32 09/20/19 06:45 09/20/19 06:53 Temperature Temperature Source Pulse Rate 133 H Pulse Rate [Right Finger] 135 H 110 H Pulse Rhythm [Right Finger] Pulse Strength [Right Finger] Respiratory Rate 24 26 H 34 H Respiratory Effort / Characteristics Labored Short of Breath Respiratory Depth Deep Respiratory Pattern Tachypnea Blood Pressure Blood Pressure [Right Arm] 145/117 H 133/80 Blood Pressure Mean Blood Pressure Mean [Right Arm] 126 97 Blood Pressure Position Pulse Oximetry 93 99 99 Oxygen Delivery Method BiPAP BiPAP Oxygen Flow Rate Fraction of Inspired Oxygen 60 60 SaO2/FiO2 Ratio 165 Sepsis Recent Fever Within 48 Hours Sepsis Action Taken by Nursing GENERAL: alert, ill appearing, well nourished, agitated, non-toxic EYE EXAM: normal conjunctiva, PERRL and EOM's grossly intact OROPHARYNX: no exudate, no erythema, lips, buccal mucosa, and tongue normal and mucous membranes are moist NECK: supple, no nuchal rigidity, no adenopathy, non-tender LUNGS: Clear to auscultation. Normal chest wall mechanics, no w/r/r HEART: no murmurs, S1 normal and S2 normal, port noted right anterior superior chest wall ABDOMEN: abdomen soft, non-tender, normo-active bowel sounds, no masses, no rebound or guarding. BACK: Back is symmetrical on inspection and there is no deformity, no midline tenderness, no CVA tenderness. SKIN: no rashes and no bruising UPPER EXTREMITIES: upper extremities are grossly normal. FROM, nml pulses b/l. Bilateral 18-gauge IV sites in the AC started by EMS. LOWER EXTREMITIES: No pitting edema. FROM, nml pulses b/l. NEURO EXAM: Patient awake, moving all extremities spontaneously, no slurred speech, no obvious facial droop, patient was only able to answer 1 question of orientation correctly. Patient unable to cooperate for any additional neuro testing. Pt agitated, had to be restrained by security in order to protect staff and perform appropriate assessment. Course Course 0535: Pt returned from CT, now unresponsive, hypoxic, slowing respirations. Minimal response to sternal rub. NPA placed and NRB turned up to 15 lmp. Flumazenil ordered and given No change. RT called for possible intubation. OPA placed in addition after dentures removed in preparation for possible intubation. Given pt's known metastatic disease, I wanted to contact the to discuss code status, pt placed on bipap to assist with ventilation and oxygenation for the duration of my phone call. 0545: Called due to deterioration in condition. She states that prior to bed around 11 PM patient takes 1 mg of Ativan and 15 mg of methadone. She states there is been a significant drop off in his appetite recently so much so that they were considering a feeding tube. She states he had not otherwise been recently ill. However last night around 2 AM patient did have an episode of vomiting which seem to wake him up. Patient was able to go back to sleep and it was sometime after that when she had checked on the patient that he was unresponsive and she could not arouse him. Patient states he is on less sedating medication now than he had been at his last admission. She is most concerned about sepsis as this is how he is presented with sepsis previously. Patient has previously had both pneumonia and UTIs which have led to sepsis. We did discuss his current condition and wishes should he continue to deteriorate. She states that at this time, patient is not on hospice, and she would want him to be intubated. 0615: Discussed with again. Updated on condition. Pt now more awake after narcan, better RR and oxygenation on bipap. OPA and NPA removed. Pt slightly agitated again, however less so compared to initial presentation. 0650: Discussed with Dr. Gamino. He suggests if pt become somnolent again, to use narcan again and attempt to avoid intubation. 0745: I attempted to contact again to update her. No answer and voice mail disconnected. Administered Medications Discontinued Medications Flumazenil (Romazicon) Confirm Administered Dose 1 mg IV .STK-MED ONE Stop: 09/20/19 05:39 Last Admin: 09/20/19 05:41 Dose: 0.1 mg Documented by: [id number] Flumazenil (Romazicon) 0.1 mg IV NOW STA Stop: 09/20/19 05:56 Last Admin: 09/20/19 05:56 Dose: 0.1 mg Documented by: [id number] Flumazenil (Romazicon) 0.2 mg IV NOW STA Stop: 09/20/19 06:01 Last Admin: 09/20/19 06:02 Dose: 0.2 mg Documented by: [id number] Haloperidol Lactate (Haldol) 1 mg IM NOW STA Stop: 09/22/19 18:40 Last Admin: 09/22/19 19:03 Dose: 1 mg Documented by: [id number] Hydromorphone HCl (Dilaudid) 0.2 mg IV Q2H PRN PRN Reason: Pain Stop: 10/05/19 12:50 Last Admin: 09/22/19 02:36 Dose: 0.2 mg Documented by: [id number] Admin: 09/21/19 21:00 Dose: 0.2 mg Documented by: [id number] Admin: 09/21/19 17:24 Dose: 0.2 mg Documented by: [id number] Sodium Chloride (Nss 1000ml) 1,000 mls @ 999 mls/hr IV .Q1H1M ONE Stop: 09/20/19 06:00 Last Infusion: 09/20/19 06:14 Dose: 0 mls/hr Documented by: [id number] Admin: 09/20/19 05:13 Dose: 999 mls/hr Documented by: [id number] Lorazepam (Ativan) 1 mg in 2 mls @ 2 mls/min IV NOW STA Stop: 09/20/19 05:01 Last Admin: 09/20/19 05:13 Dose: 2 mls/min Documented by: [id number] Cefepime HCl (Maxipime) 2,000 mg in 20 mls @ 5 mls/min IV NOW STA Stop: 09/20/19 06:04 Last Admin: 09/20/19 10:06 Dose: Not Given Documented by: [id number] Vancomycin HCl 2,500 mg/ (Sodium Chloride) 550 mls @ 200 mls/hr IV NOW ONE Stop: 09/20/19 08:45 Last Infusion: 09/20/19 09:00 Dose: 0 mls/hr Documented by: [id number] Admin: 09/20/19 06:14 Dose: 200 mls/hr Documented by: [id number] Acetaminophen (Ofirmev) 1,000 mg in 100 mls @ 400 mls/hr IV NOW STA Stop: 09/20/19 06:20 Last Infusion: 09/20/19 06:30 Dose: 0 mls/hr Documented by: [id number] Admin: 09/20/19 06:14 Dose: 400 mls/hr Documented by: [id number] Piperacillin Sod/Tazobactam Sod (Zosyn) 4.5 gm in 120 mls @ 240 mls/hr IV NOW ONE Stop: 09/20/19 06:35 Last Infusion: 09/20/19 06:46 Dose: 0 mls/hr Documented by: [id number] Admin: 09/20/19 06:14 Dose: 240 mls/hr Documented by: [id number] Potassium Chloride/Sodium Chloride (Normal Saline W/20 Meq Kcl) 20 meq in 1,000 mls @ 125 mls/hr IV .Q8H JANE Stop: 10/20/19 10:29 Last Admin: 09/20/19 12:09 Dose: Not Given Documented by: [id number] Vancomycin HCl 1,750 mg/ (Sodium Chloride) 535 mls @ 200 mls/hr IV Q12H JANE; Protocol Stop: 09/27/19 17:59 Last Infusion: 09/21/19 18:43 Dose: 0 mls/hr Documented by: [id number] Admin: 09/21/19 18:30 Dose: 200 mls/hr Documented by: [id number] Infusion: 09/21/19 07:52 Dose: 0 mls/hr Documented by: [id number] Admin: 09/21/19 05:04 Dose: 200 mls/hr Documented by: [id number] Infusion: 09/20/19 21:03 Dose: 0 mls/hr Documented by: [id number] Admin: 09/20/19 18:22 Dose: 200 mls/hr Documented by: [id number] Cefepime HCl 2,000 mg/ Syringe 20 mls @ 5 mls/min IV Q8H JANE; Protocol Stop: 09/27/19 13:59 Last Admin: 09/22/19 14:00 Dose: 5 mls/min Documented by: [id number] Admin: 09/22/19 07:38 Dose: 5 mls/min Documented by: [id number] Admin: 09/21/19 21:38 Dose: 5 mls/min Documented by: [id number] Admin: 09/21/19 14:28 Dose: 5 mls/min Documented by: [id number] Admin: 09/21/19 05:04 Dose: 5 mls/min Documented by: [id number] Admin: 09/20/19 22:02 Dose: 5 mls/min Documented by: [id number] Admin: 09/20/19 13:26 Dose: 5 mls/min Documented by: [id number] Dexmedetomidine HCl 200 mcg/ (Sodium Chloride) 50 mls @ 0 mls/hr IV .Q0M JANE; Protocol Stop: 09/24/19 20:14 Last Admin: 09/21/19 14:29 Dose: Not Given Documented by: [id number] Titration: 09/21/19 13:57 Dose: 0 mcg/kg/hr, 0 mls/hr Documented by: [id number] Titration: 09/21/19 09:49 Dose: 0 mcg/kg/hr, 0 mls/hr Documented by: [id number] Admin: 09/21/19 08:56 Dose: 0.6 mcg/kg/hr, 18 mls/hr Documented by: [id number] Cosigned by: [id number] Titration: 09/21/19 08:13 Dose: 0.6 mcg/kg/hr, 18 mls/hr Documented by: [id number] Cosigned by: [id number] Titration: 09/21/19 07:00 Dose: 0.6 mcg/kg/hr, 18 mls/hr Documented by: [id number] Cosigned by: [id number] Titration: 09/21/19 05:20 Dose: 0.5 mcg/kg/hr, 15 mls/hr Documented by: [id number] Admin: 09/21/19 05:04 Dose: 0.4 mcg/kg/hr, 12 mls/hr Documented by: [id number] Cosigned by: [id number] Titration: 09/21/19 04:42 Dose: 0.4 mcg/kg/hr, 12 mls/hr Documented by: [id number] Cosigned by: [id number] Titration: 09/21/19 00:45 Dose: 0.4 mcg/kg/hr, 12 mls/hr Documented by: [id number] Admin: 09/21/19 00:27 Dose: 0.3 mcg/kg/hr, 9 mls/hr Documented by: [id number] Cosigned by: [id number] Titration: 09/21/19 00:27 Dose: 0.3 mcg/kg/hr, 9 mls/hr Documented by: [id number] Cosigned by: [id number] Titration: 09/21/19 00:15 Dose: 0.3 mcg/kg/hr, 9 mls/hr Documented by: [id number] Admin: 09/20/19 20:19 Dose: 0.2 mcg/kg/hr, 6 mls/hr Documented by: [id number] Cosigned by: [id number] Dextrose/Sodium Chloride (D5w And 1/2nss) 1,000 mls @ 60 mls/hr IV .[id number] JANE Stop: 10/21/19 08:44 Last Admin: 09/22/19 19:29 Dose: Not Given Documented by: [id number] Infusion: 09/22/19 19:20 Dose: 0 mls/hr Documented by: [id number] Admin: 09/22/19 01:56 Dose: 60 mls/hr Documented by: [id number] Infusion: 09/22/19 01:36 Dose: 60 mls/hr Documented by: [id number] Infusion: 09/21/19 22:24 Dose: 60 mls/hr Documented by: [id number] Admin: 09/21/19 08:56 Dose: 60 mls/hr Documented by: [id number] Sodium Chloride (Nss 1000ml) 500 mls @ 999 mls/hr IV .Q31M ONE Stop: 09/22/19 08:14 Last Infusion: 09/22/19 09:10 Dose: 0 mls/hr Documented by: [id number] Admin: 09/22/19 07:59 Dose: 999 mls/hr Documented by: [id number] Ketorolac Tromethamine (Toradol) 15 mg IV NOW ONE Stop: 09/22/19 04:04 Last Admin: 09/22/19 04:17 Dose: 15 mg Documented by: [id number] Naloxone HCl (Narcan) Confirm Administered Dose 0.4 mg .ROUTE .STK-MED ONE Stop: 09/20/19 06:01 Last Admin: 09/20/19 06:02 Dose: 0.4 mg Documented by: [id number] Naloxone HCl (Narcan) 0.4 mg IV NOW STA Stop: 09/20/19 06:03 Last Admin: 09/20/19 06:01 Dose: 0.4 mg Documented by: [id number] Critical Care Time Critical Care Time: Yes Total Critical Care Time: 80 Critical care of 80 min performed to assess and manage high likelihood of life- threatening sepsis, involving labs and imaging performed with assessment to evaluate sepsis diagnosis with frequent reassessment. This time includes bedside time, treatment discussions with patient/family/consultants, documentation time and excludes procedure time. Medical Decision Making Differential Diagnosis Differential diagnoses includes but is not limited to toxic, metabolic, infectious, traumatic, cardiac, neurologic, hematologic, psychiatric and inflammatory etiologies. Medical Records Attestation: I reviewed the patient's medical records. Home Medications Current Medication List: was personally reviewed by me Laboratory Data Attestation: I reviewed the patient's lab results. Result diagrams: 09/21/19 04:27 09/21/19 04:27 Lab Results 09/20/19 09/20/19 09/20/19 Range/Units 05:07 05:15 05:18 WBC (4.8-10.8) K/uL RBC (4.7-6.1) M/uL Hgb (14.0-18.0) g/dL Hct (42-52) % MCV (80-100) fL MCH (25-34) pg MCHC (32-36) g/dL RDW Std Deviation (36.4-46.3) fL RDW Coeff of Arlyn (11.5-14.5) % Plt Count (130-400) K/uL MPV (7.4-10.4) fL Immature Gran % (Auto) % Neut % (Auto) % Lymph % (Auto) % [place] % (Auto) % Eos % (Auto) % Baso % (Auto) % Immature Gran # (Auto) (0.00-0.02) K/uL Neut # (Auto) (1.4-6.5) K/uL Lymph # (Auto) (1.2-3.4) K/uL [place] # (Auto) (0.11-0.59) K/uL Eos # (Auto) (0-0.5) K/uL Baso # (Auto) (0-0.2) K/uL PT 16.6 H (9.0-12.0) Seconds INR 1.6 H (0.9-1.1) APTT 44.1 H (21.0-31.0) Seconds PTT Ratio 1.6 ABG pH (7.35-7.45) ABG pCO2 (35-46) mmHg ABG pO2 (80-95) mmHg ABG HCO3 (19-24) mmol/L ABG O2 Saturation (90-95) % ABG Base Excess (-9-1.8) mEq/L Adrien Test (Pos) Barometric Pressure mm/Hg Oxygen Given Sodium (136-145) mmol/L Potassium (3.5-5.1) mmol/L Chloride (98-107) mmol/L Carbon Dioxide (21-32) mmol/L Anion Gap (3-11) BUN (7-18) mg/dl Creatinine (0.6-1.4) mg/dl Est Cr Clr Drug Dosing ml/min Est GFR ( Amer) Est GFR (Non-Af Amer) BUN/Creatinine Ratio (10-20) Glucose (70-99) mg/dl POC Glucose 101 H (70-99) mg/dl Lactate (0.4-2.0) mmol/L Calcium (8.5-10.1) mg/dl Phosphorus (2.5-4.9) mg/dl Magnesium (1.8-2.4) mg/dl Total Bilirubin (0.2-1) mg/dl AST (15-37) U/L ALT (12-78) U/L Alkaline Phosphatase (45-117) U/L Troponin I (0-0.045) ng/ml Total Protein (6.4-8.2) gm/dl Albumin (3.4-5.0) gm/dl Globulin (2.5-4.0) gm/dl Albumin/Globulin Ratio (0.9-2) Procalcitonin (0-0.5) ng/ml TSH (0.300-4.500) uIu/ml Free T4 (0.8-1.6) ng/dl Urine Color Dark Yellow Urine Appearance Clear (Clear) Urine pH 5.5 (4.5-7.5) Ur Specific [place] 1.019 (1.000-1.030) Urine Protein 1+ H (Negative) Urine Glucose (UA) Negative (Negative) Urine Ketones 1+ H (Negative) Urine Blood Negative (Negative) Urine Nitrite Negative (Negative) Urine Bilirubin Negative (Negative) Urine Urobilinogen Negative (Negative) Ur Leukocyte Esterase Negative (Negative) Urine WBC (Auto) 1-5 (0-5) /hpf Urine RBC (Auto) 0-4 (0-4) /hpf U Hyaline Cast (Auto) 0 (0-5) /lpf U Epithel Cells (Auto) 0-5 (0-5) /lpf Urine Bacteria (Auto) Negative (Negative) COVID-19 PCR (Negative) SARS Serology 09/20/19 09/20/19 09/20/19 Range/Units 05:18 05:18 05:18 WBC (4.8-10.8) K/uL RBC (4.7-6.1) M/uL Hgb (14.0-18.0) g/dL Hct (42-52) % MCV (80-100) fL MCH (25-34) pg MCHC (32-36) g/dL RDW Std Deviation (36.4-46.3) fL RDW Coeff of Arlyn (11.5-14.5) % Plt Count (130-400) K/uL MPV (7.4-10.4) fL Immature Gran % (Auto) % Neut % (Auto) % Lymph % (Auto) % [place] % (Auto) % Eos % (Auto) % Baso % (Auto) % Immature Gran # (Auto) (0.00-0.02) K/uL Neut # (Auto) (1.4-6.5) K/uL Lymph # (Auto) (1.2-3.4) K/uL [place] # (Auto) (0.11-0.59) K/uL Eos # (Auto) (0-0.5) K/uL Baso # (Auto) (0-0.2) K/uL PT (9.0-12.0) Seconds INR (0.9-1.1) APTT (21.0-31.0) Seconds PTT Ratio ABG pH (7.35-7.45) ABG pCO2 (35-46) mmHg ABG pO2 (80-95) mmHg ABG HCO3 (19-24) mmol/L ABG O2 Saturation (90-95) % ABG Base Excess (-9-1.8) mEq/L Adrien Test (Pos) Barometric Pressure mm/Hg Oxygen Given Sodium 131 L (136-145) mmol/L Potassium 3.9 (3.5-5.1) mmol/L Chloride 96 L (98-107) mmol/L Carbon Dioxide 25 (21-32) mmol/L Anion Gap 10.0 (3-11) BUN 8 (7-18) mg/dl Creatinine 0.99 (0.6-1.4) mg/dl Est Cr Clr Drug Dosing 106.0 ml/min Est GFR ( Amer) 93.6 Est GFR (Non-Af Amer) 80.7 BUN/Creatinine Ratio 7.7 L (10-20) Glucose 91 (70-99) mg/dl POC Glucose (70-99) mg/dl Lactate 4.1 H* (0.4-2.0) mmol/L Calcium 8.3 L (8.5-10.1) mg/dl Phosphorus 2.8 (2.5-4.9) mg/dl Magnesium 1.8 (1.8-2.4) mg/dl Total Bilirubin 1.4 H (0.2-1) mg/dl AST 189 H (15-37) U/L ALT 31 (12-78) U/L Alkaline Phosphatase 1051 H (45-117) U/L Troponin I < 0.015 (0-0.045) ng/ml Total Protein 6.1 L (6.4-8.2) gm/dl Albumin 1.9 L (3.4-5.0) gm/dl Globulin 4.2 H (2.5-4.0) gm/dl Albumin/Globulin Ratio 0.5 L (0.9-2) Procalcitonin 1.61 H (0-0.5) ng/ml TSH 16.100 H (0.300-4.500) uIu/ml Free T4 1.27 (0.8-1.6) ng/dl Urine Color Urine Appearance (Clear) Urine pH (4.5-7.5) Ur Specific [place] (1.000-1.030) Urine Protein (Negative) Urine Glucose (UA) (Negative) Urine Ketones (Negative) Urine Blood (Negative) Urine Nitrite (Negative) Urine Bilirubin (Negative) Urine Urobilinogen (Negative) Ur Leukocyte Esterase (Negative) Urine WBC (Auto) (0-5) /hpf Urine RBC (Auto) (0-4) /hpf U Hyaline Cast (Auto) (0-5) /lpf U Epithel Cells (Auto) (0-5) /lpf Urine Bacteria (Auto) (Negative) COVID-19 PCR (Negative) SARS Serology 09/20/19 09/20/19 09/20/19 Range/Units 05:21 05:23 07:29 WBC 21.69 H (4.8-10.8) K/uL RBC 3.04 L (4.7-6.1) M/uL Hgb 8.8 L (14.0-18.0) g/dL Hct 28.8 L (42-52) % MCV 94.7 (80-100) fL MCH 28.9 (25-34) pg MCHC 30.6 L (32-36) g/dL RDW Std Deviation 65.8 H (36.4-46.3) fL RDW Coeff of Arlyn 19.0 H (11.5-14.5) % Plt Count 449 H (130-400) K/uL MPV 8.7 (7.4-10.4) fL Immature Gran % (Auto) 1.6 % Neut % (Auto) 82.1 % Lymph % (Auto) 6.1 % [place] % (Auto) 8.5 % Eos % (Auto) 1.4 % Baso % (Auto) 0.3 % Immature Gran # (Auto) 0.34 H (0.00-0.02) K/uL Neut # (Auto) 17.80 H (1.4-6.5) K/uL Lymph # (Auto) 1.32 (1.2-3.4) K/uL [place] # (Auto) 1.85 H (0.11-0.59) K/uL Eos # (Auto) 0.31 (0-0.5) K/uL Baso # (Auto) 0.07 (0-0.2) K/uL PT (9.0-12.0) Seconds INR (0.9-1.1) APTT (21.0-31.0) Seconds PTT Ratio ABG pH 7.19 L* (7.35-7.45) ABG pCO2 71 H (35-46) mmHg ABG pO2 89 (80-95) mmHg ABG HCO3 26 H (19-24) mmol/L ABG O2 Saturation 95.0 (90-95) % ABG Base Excess -2.2 (-9-1.8) mEq/L Adrien Test Pos (Pos) Barometric Pressure 734.9 mm/Hg Oxygen Given 10 LITERS O2 Sodium (136-145) mmol/L Potassium (3.5-5.1) mmol/L Chloride (98-107) mmol/L Carbon Dioxide (21-32) mmol/L Anion Gap (3-11) BUN (7-18) mg/dl Creatinine (0.6-1.4) mg/dl Est Cr Clr Drug Dosing ml/min Est GFR ( Amer) Est GFR (Non-Af Amer) BUN/Creatinine Ratio (10-20) Glucose (70-99) mg/dl POC Glucose (70-99) mg/dl Lactate 2.2 H* (0.4-2.0) mmol/L Calcium (8.5-10.1) mg/dl Phosphorus (2.5-4.9) mg/dl Magnesium (1.8-2.4) mg/dl Total Bilirubin (0.2-1) mg/dl AST (15-37) U/L ALT (12-78) U/L Alkaline Phosphatase (45-117) U/L Troponin I (0-0.045) ng/ml Total Protein (6.4-8.2) gm/dl Albumin (3.4-5.0) gm/dl Globulin (2.5-4.0) gm/dl Albumin/Globulin Ratio (0.9-2) Procalcitonin (0-0.5) ng/ml TSH (0.300-4.500) uIu/ml Free T4 (0.8-1.6) ng/dl Urine Color Urine Appearance (Clear) Urine pH (4.5-7.5) Ur Specific [place] (1.000-1.030) Urine Protein (Negative) Urine Glucose (UA) (Negative) Urine Ketones (Negative) Urine Blood (Negative) Urine Nitrite (Negative) Urine Bilirubin (Negative) Urine Urobilinogen (Negative) Ur Leukocyte Esterase (Negative) Urine WBC (Auto) (0-5) /hpf Urine RBC (Auto) (0-4) /hpf U Hyaline Cast (Auto) (0-5) /lpf U Epithel Cells (Auto) (0-5) /lpf Urine Bacteria (Auto) (Negative) COVID-19 PCR (Negative) SARS Serology 09/20/19 09/20/19 09/20/19 Range/Units 07:33 07:33 09:21 WBC (4.8-10.8) K/uL RBC (4.7-6.1) M/uL Hgb (14.0-18.0) g/dL Hct (42-52) % MCV (80-100) fL MCH (25-34) pg MCHC (32-36) g/dL RDW Std Deviation (36.4-46.3) fL RDW Coeff of Arlyn (11.5-14.5) % Plt Count (130-400) K/uL MPV (7.4-10.4) fL Immature Gran % (Auto) % Neut % (Auto) % Lymph % (Auto) % Dupage % (Auto) % Eos % (Auto) % Baso % (Auto) % Immature Gran # (Auto) (0.00-0.02) K/uL Neut # (Auto) (1.4-6.5) K/uL Lymph # (Auto) (1.2-3.4) K/uL Dupage # (Auto) (0.11-0.59) K/uL Eos # (Auto) (0-0.5) K/uL Baso # (Auto) (0-0.2) K/uL PT (9.0-12.0) Seconds INR (0.9-1.1) APTT (21.0-31.0) Seconds PTT Ratio ABG pH 7.26 L (7.35-7.45) ABG pCO2 50 H (35-46) mmHg ABG pO2 128 H (80-95) mmHg ABG HCO3 22 (19-24) mmol/L ABG O2 Saturation 98.4 H (90-95) % ABG Base Excess -4.8 (-9-1.8) mEq/L Adrien Test Pos (Pos) Barometric Pressure 736.7 mm/Hg Oxygen Given 12 Sodium (136-145) mmol/L Potassium (3.5-5.1) mmol/L Chloride (98-107) mmol/L Carbon Dioxide (21-32) mmol/L Anion Gap (3-11) BUN (7-18) mg/dl Creatinine (0.6-1.4) mg/dl Est Cr Clr Drug Dosing ml/min Est GFR ( Amer) Est GFR (Non-Af Amer) BUN/Creatinine Ratio (10-20) Glucose (70-99) mg/dl POC Glucose (70-99) mg/dl Lactate (0.4-2.0) mmol/L Calcium (8.5-10.1) mg/dl Phosphorus (2.5-4.9) mg/dl Magnesium (1.8-2.4) mg/dl Total Bilirubin (0.2-1) mg/dl AST (15-37) U/L ALT (12-78) U/L Alkaline Phosphatase (45-117) U/L Troponin I (0-0.045) ng/ml Total Protein (6.4-8.2) gm/dl Albumin (3.4-5.0) gm/dl Globulin (2.5-4.0) gm/dl Albumin/Globulin Ratio (0.9-2) Procalcitonin (0-0.5) ng/ml TSH (0.300-4.500) uIu/ml Free T4 (0.8-1.6) ng/dl Urine Color Urine Appearance (Clear) Urine pH (4.5-7.5) Ur Specific [place] (1.000-1.030) Urine Protein (Negative) Urine Glucose (UA) (Negative) Urine Ketones (Negative) Urine Blood (Negative) Urine Nitrite (Negative) Urine Bilirubin (Negative) Urine Urobilinogen (Negative) Ur Leukocyte Esterase (Negative) Urine WBC (Auto) (0-5) /hpf Urine RBC (Auto) (0-4) /hpf U Hyaline Cast (Auto) (0-5) /lpf U Epithel Cells (Auto) (0-5) /lpf Urine Bacteria (Auto) (Negative) COVID-19 PCR NEGATIVE (Negative) SARS Serology NEGATIVE Imaging Data My Impression: X-ray: I interpreted the following studies. Chest: A single view study of the chest was reviewed and was negative for cardiomegaly, effusion, pulmonary edema, or wide mediastinum. Right sided infiltrate noted. ECG Data Attestation: I personally reviewed and interpreted this ECG as follows: Indication: + altered mental status Rate (beats per minute): 68 Rhythm: + normal sinus ECG Intervals/blocks: + Normal QRS and + Normal QT ECG Wanda: + Normal ECG ST segments: + Nonspecific ST abnormalities Blood Pressure Blood Pressure Findings: Elevated blood pressure MDM Narrative Pt arrived via ems after being found unresponsive by his at home. Given dextrose by ems due to glucose of 50 and pt agitated on arrival. Due to pt's agitation despite attempts at redirection and calming, pt was placed in handcuffs by security. Due to ongoing agitation and need for evaluation, lab draw, IV placement, imaging, pt given 1 mg ativan. Pt sent for head CT. Upon returning pt unresponsive with snoring respirations and began to desat. Given he had ativan, additional oxygen placed, then an NPA and jaw thrust and sats started coming up. I asked nursing staff to give flumazenil believing they would reverse the effects and no response. OPA placed, RT called. Pt began to desat again. Pt placed on bipap temporarily until I could confirm code status/intubation status with given known metastatic disease. While add itional set up being made for intubation, I tried narcan additionally due to chronic narotic use for ongoing cancer related pain. Pt awoke and became agitated again. As RR and oxygenation settled, NPA and OPA removed. Pt more lucid and oriented at this time and slowly calmed after 10 minutes. We did continue to monitor his level of arousal due to effects of narcan likely wearing off. Pt did continue to be arousable. Given likely aspiration pneumonia on cxr and story of pt vomiting earlier this is likely the cause of his sepsis. I do not suspect COVID 19. Elevated lactate was repeated per protocol. Pt received IV antibiotics and cautious IVF given persistent hypertension and unknown cardiac function at the time. Pt hypercapnic likely from hypopnea from medications and likely underlying JOSEFINA. ABg repeated also and was improving. Lactate improved on repeat also. Due to concern for stabilty after initial head CT, additional CT imaging not immediately pursued in the ER such as CT chest to r/o PE. This was discussed with the hospitalist. Hospitalist requested COVID 19 testing prior to placing admission status orders. An order was placed for continuous cardiac monitoring. The monitor shows a rate of _86_ with normal sinus rhythm. Impression & Plan Sepsis, Aspiration pneumonia, Acute hypoxemic respiratory failure, Chronic anemia, Cancer related pain, Hypercapnia, Metastatic cancer Discharge Plan Visit Data *Final* Discharge Date/Time: 09/20/19 10:05 Chief Complaint: Unresponsive Stated Complaint: Unresponsive ED Provider: Erlinda Cronin Discharge Problem: Sepsis, Aspiration pneumonia, Acute hypoxemic respiratory failure, Chronic anemia, Cancer related pain, Hypercapnia, Metastatic cancer Patient Disposition: Admitted As Inpatient Discharge Instructions Interventions: ED Discharge Assessment Last Done: 09/20/19 10:05 Discharge Problem: Sepsis Qualifiers: Sepsis type: sepsis due to unspecified organism Sepsis acute organ dysfunction status: with acute organ dysfunction Severe sepsis acute organ dysfunction type: acute respiratory failure Acute respiratory failure type: with hypoxia Severe sepsis shock status: without septic shock Qualified Code(s): A41.9 - Sepsis, unspecified organism Aspiration pneumonia Qualifiers: Aspiration pneumonia type: due to vomit Laterality: right Lung location: lower lobe of lung Qualified Code(s): J69.0 - Pneumonitis due to inhalation of food and vomit
[2019-09-20 05:24] LABS: Appearance Urine Clear (Clear); Bacteria Urine Automated Negative (Negative); Blood Urine Negative (Negative); Cast Urine Automated 0 /lpf (0-5); Color Urine Dark Yellow; Epithelial Cell Urine Auto 0-5 /lpf (0-5); Glucose Urine UA Negative (Negative); Ketones Urine 1+ (Negative); Leukocyte Esterase Urine Negative (Negative); Nitrite Urine Negative (Negative); Protein Urine 1+ (Negative); RBC Urine Automated 0-4 /hpf (0-4); Specific Gravity Urine 1.019 (1.000-1.030); Urobilinogen Urine Negative (Negative); pH Urine 5.5 (4.5-7.5)
[2019-09-20 05:32] LABS: Basophils % (auto) 0.3 %; Eosinophils % (auto) 1.4 %; Hematocrit (blood only) 28.8 % (42-52); Hemoglobin 8.8 g/dL (14.0-18.0); Immature Granulocytes % (auto) 1.6 %; Lymphocytes # (auto) 1.32 K/uL (1.2-3.4); Lymphocytes % (auto) 6.1 %; Mean Corpuscular Hemoglobin 28.9 pg (25-34); Mean Corpuscular Hgb Conc 30.6 g/dL (32-36); Mean Corpuscular Volume 94.7 fL (80-100); Mean Platelet Volume 8.7 fL (7.4-10.4); Monocytes % (auto) 8.5 %; Neutrophils % (auto) 82.1 %; Platelet Count 449 K/uL (130-400); RDW Standard Deviation 65.8 fL (36.4-46.3); Red Blood Count 3.04 M/uL (4.7-6.1); White Blood Count 21.69 K/uL (4.8-10.8)
[2019-09-20 05:33] LABS: Basophils # (auto) 0.07 K/uL (0-0.2); Eosinophils # (auto) 0.31 K/uL (0-0.5); Immature Granulocytes # (auto) 0.34 K/uL (0.00-0.02); Monocytes # (auto) 1.85 K/uL (0.11-0.59)
[2019-09-20 05:36] LABS: Base Excess ABG -2.2 mEq/L (-9-1.8); HCO3 ABG 26 mmol/L (19-24); PCO2 ABG 71 mmHg (35-46); PO2 ABG 89 mmHg (80-95)
[2019-09-20] MEDS ORDERED: FLUMAZENIL 0.1 MG/1 ML 10 ML VIAL IV ONE (05:38)
[2019-09-20 05:40] LABS: Bilirubin Urine Negative (Negative); Ictotest Urine Negative (Negative)
[2019-09-20 05:42] LABS: Allen Test Pos (Pos); pH ABG 7.19 (7.35-7.45)
[2019-09-20 05:44] LABS: INR 1.6 (0.9-1.1); Partial Thromboplastin Ratio 1.6; Partial Thromboplastin Time 44.1 Seconds (21.0-31.0); Prothrombin Time 16.6 Seconds (9.0-12.0)
[2019-09-20 05:50] LABS: Alanine Aminotransferase 31 U/L (12-78); Albumin Level 1.9 gm/dl (3.4-5.0); Aspartate Aminotransferase 189 U/L (15-37); BUN Creatinine Ratio 7.7 (10-20); Blood Urea Nitrogen 8 mg/dl (7-18); Calcium 8.3 mg/dl (8.5-10.1); Carbon Dioxide 25 mmol/L (21-32); Chloride 96 mmol/L (98-107); Est GFR (African American) 93.6; Est GFR (Non-African American) 80.7; Glucose 91 mg/dl (70-99); Magnesium 1.8 mg/dl (1.8-2.4); Potassium 3.9 mmol/L (3.5-5.1); Sodium 131 mmol/L (136-145)
[2019-09-20] MEDS ORDERED: FLUMAZENIL 0.1 MG/1 ML 10 ML VIAL IV STA ×2 (05:55→06:00)
[2019-09-20] MEDS ORDERED: NALOXONE HCL 0.4 MG/1 ML VIAL/CARP ONE (06:00)
[2019-09-20] MEDS ORDERED: CEFEPIME 2,000 MG/20 ML VIAL IV STA (06:01)
[2019-09-20] MEDS ORDERED: VANCOMYCIN CONSULT ACTIVE PRN ×2 (06:01)
[2019-09-20] MEDS ORDERED: VANCOMYCIN HCL 2,500 MG in SODIUM CHLORIDE 0.9% 500 ML IV ONE (06:01)
[2019-09-20] MEDS ORDERED: NALOXONE HCL 0.4 MG/1 ML VIAL/CARP IV STA (06:02)
[2019-09-20 06:03] LABS: Albumin Globulin Ratio 0.5 (0.9-2); Alkaline Phosphatase 1051 U/L (45-117); Bilirubin,Total 1.4 mg/dl (0.2-1); Globulin 4.2 gm/dl (2.5-4.0); Phosphorus 2.8 mg/dl (2.5-4.9); Total Protein 6.1 gm/dl (6.4-8.2); Troponin I < 0.015 ng/ml (0-0.045)
[2019-09-20] MEDS ORDERED: PIPERACILLIN/TAZOBACTAM 4.5 GM/120 ML BAG IV ONE (06:06)
[2019-09-20] MEDS ORDERED: PIPERACILL/TAZOBAC CONSULT ACTIVE PRN (06:06)
[2019-09-20] MEDS ORDERED: ACETAMINOPHEN 1,000 MG/100 ML VIAL IV STA (06:06)
[2019-09-20 06:16] LABS: T4 Free Thyroxine 1.27 ng/dl (0.8-1.6)
--- NOTE | 2019-09-20 06:45 | CT Scan Report ---
CT head/brain wo con CLINICAL HISTORY: 64 years-old Male presenting with ams, unresponsive, heavy breathing. TECHNIQUE: Multidetector CT imaging of the head was performed without the use of intravenous contrast . IV contrast: None. One or more dose lowering techniques were used consistent with the principles of ALARA (as low as reasonably achievable), including automatic exposure control, mA or kV adjustment t o individual patient size, and/or use of iterative reconstruction. COMPARISON: 09/05/2019. CT DOSE (mGy.cm): The estimated cumulative dose is 1547.95 mGy.cm. FINDINGS: African History Professor topogram: The patient is edentulous. Ventricles and sulci normal in size. No hemorrhage. Mild periventricular and subcortical white matter hypoattenuation, nonspecific but likely indicative of chronic small vessel ischemic change. No acute territorial infarct. No mass effect or midline shift. No extra-axial fluid collection. Paranasal sin uses and mastoid air cells clear. Calvarium intact. IMPRESSION: 1. Mild chronic small vessel ischemic change. No acute intracranial abnormality. ACT 112: Negative or not required by law. Electronically signed by: Justin Gtz M.D. 09/20/2019 6:43 AM
--- NOTE | 2019-09-20 06:49 | XRay Report ---
XR chest 1V portable CLINICAL HISTORY: 64 years-old Male presenting with SEPSIS, unresponsive. TECHNIQUE: Portable semiupright AP view of the chest was obtained. COMPARISON: 09/10/2019. FINDINGS: Right internal jugular Mediport terminates in the right internal jugular vein, unchanged. Cardiac babita houette top normal in size. Mild pulmonary vascular prominence. Asymmetric right infrahilar and right basilar opacity. There is also focal pleural thickening at the right mid to upper lung. Left retroca rdiac density also suggested. No large effusion or pneumothorax. Heterogeneous radiolucency of the le ft lung. Degenerative changes of the thoracic spine. IMPRESSION: 1. Significant increase in right basilar infiltrate concerning for pneumonia. 2. Focal pleural abnormality at the right mid to upper lung. This likely relates to worsened extraos seous extension of known underlying metastatic lesion in the lateral right fourth rib. 3. Left retrocardiac opacity may relate to atelectasis or also developing infiltrate. 4. Underlying emphysema. ACT 112: Negative or not required by law. Electronically signed by: Justin Gtz M.D. 09/20/2019 6:47 AM
[2019-09-20 09:34] LABS: Allen Test Pos (Pos); Base Excess ABG -4.8 mEq/L (-9-1.8); HCO3 ABG 22 mmol/L (19-24); Oxygen Saturation ABG 98.4 % (90-95); PCO2 ABG 50 mmHg (35-46); PO2 ABG 128 mmHg (80-95); pH ABG 7.26 (7.35-7.45)
[2019-09-20] MEDS ORDERED: CONSULT PHARMACY STA (10:30)
[2019-09-20] MEDS ORDERED: NSS + 20MEQ KCL 20 MEQ/1,000 ML BAG IV SCH (10:30)
[2019-09-20 11:16] LABS: Base Excess ABG -0.7 mEq/L (-9-1.8); HCO3 ABG 26 mmol/L (19-24); Oxygen Saturation ABG 98.8 % (90-95); PCO2 ABG 52 mmHg (35-46); PO2 ABG 140 mmHg (80-95); pH ABG 7.31 (7.35-7.45)
[2019-09-20 11:17] LABS: Allen Test Pos (Pos)
[2019-09-20] MEDS ORDERED: PIPERACILLIN/TAZOBACTAM 3.375 GM in DEXTROSE 5% 100 ML IV SCH (12:00)
[2019-09-20] MEDS ORDERED: CEFEPIME CONSULT ACTIVE PRN (12:04)
--- NOTE | 2019-09-20 12:11 | XRay Report ---
XR KUB/Abdomen 1 view CLINICAL HISTORY: 64 years-old Male presenting with vomiting, r/o obstruction. TECHNIQUE: Single supine view of the abdomen was obtained. COMPARISON: 09/07/2019. FINDINGS: Esophageal stents located at the level of the gastroesophageal junction. Nonobstructive bowel gas pat tern. No gross pneumoperitoneum. Patient body habitus moderately decreases diagnostic sensitivity the exam. Mild diffuse stool burden. Allowing for bowel gas and stool, no calcifications to suggest nephrolithiasis. Extensive degenerative changes of the spine. Previously demonstrated fracture of L5 not well depicted . Underlying lucent lesions previously seen on CT from 06/14/2019 now well depicted. Lung bases clear. IMPRESSION: 1. No radiographic evidence of bowel obstruction. 2. Gastroesophageal stent in place. ACT 112: Negative or not required by law. Electronically signed by: Justin Gtz M.D. 09/20/2019 12:09 PM
--- NOTE | 2019-09-20 12:50 | Critical Care Consultation ---
Date of Consultation September 20, 2019 Assessment & Plan (1) Status post admission to intensive care unit: 64-year-old male with a past medical history of stage IV esophageal cancer that was deemed "terminal" by patient's oncologist Dr. Avilez presenting acutely hypoxemic and encephalopathic. Patient received a dose of vancomycin and Zosyn in the ER. We are going to continue vancomycin and cefepime for aspiration pneumonia. PCT MRSA screen is pending. Will obtain a procalcitonin level. COVID-19 testing was negative in the ER. As his ABG is improving, we will continue BiPAP for the time being. If he does not have significant improvement in his encephalopathy and obtundation, will intubate to protect his airway. Avoid further sedating medications. His INR has also been trending up to 1.6. Unclear etiology. May be related to metastatic liver disease versus poor oral intake. He does have a mild transaminitis with a very significant alk phosphatase elevation which may be also related to bony metastatic disease. Albumin is noted to be 1.9 today and previously was 1.7 on 09/12/2019. He is severely hypoalbuminemic and malnourished and has a very poor prognosis related to this and his malignancy. He also has anemia of chronic disease. This does appear to be stable. Lactic acidosis improving since admission from 4-2.2. I was able to get a hold of the and spoke to her at length over the phone. Approximately 20 minutes of conversation. The indicated that she was not quite sure what to do prior to him coming to the hospital. He told her approximately 3 or 4 times that he wanted to go to the ER and that he felt like he was going to . I had a lengthy discussion and she had decided that she would prefer him to be a DO NOT RESUSCITATE. She is going to discuss with her family with regards to palliative/hospice care. She said that if she were to make that decision, she would like to be present in the hospital by his bedside. She would ideally like to take him home and allow him to at home. Thus, for the time being we are going to make him DO NOT RESUSCITATE and okay for intubation. She will likely give us a call later today with regards to intubation and comfort care. CRITICAL CARE TIME - I have personally spent 92 minutes of critical care time in the direct management of this patient. This is a life/limb threatening event. This includes time spent evaluating patient, direct bedside care, chart review, placing orders, interpretation of diagnostic studies, discussion with consultants, patient, and family members, as well as other required patient management activities. This time is exclusive of all separately billable procedures, and teaching time and separate from and in addition to any other critical care service time. (2) Stage IV malignant neoplasm of esophagus: (3) Acute hypoxemic respiratory failure: (4) Lactic acidosis: (5) Severe sepsis: (6) Acute encephalopathy: History of Present Illness Reason for Consultation: Acute hypoxemic respiratory failure with altered mental status. Requesting Physician: Jaren Quintanilla MD Attending Physician: Jaren Quintanilla MD History of Present Illness 64-year-old male with a past medical history of stage IV esophageal cancer with metastatic disease to the liver lungs and bones presenting to the hospital with acute hypoxemic respiratory failure and altered mental status. History is unobtainable from the patient as he is unresponsive. I did discuss the case with the patient's hospitalist and reviewed the electronic medical record. Apparently the patient presented via EMS from home after his called 911 since the patient was unresponsive. He has been getting Ativan overnight due to agitation by his . He woke up around 3 AM and she gave him an additional dose of Ativan and pain medications. His blood sugar was found to be in the 50s on route to the hospital and he was given D10. Currently, the patient was awake in the ER but unable to give any history to the provider. I did try to call the twice myself and she was unavailable. There was also reports that the patient may have vomited in the ER while on BiPAP. On presentation his pH was 7.19/PCO2 of 71 and PO2 of 89. This improved to a pH of 7.31 and a PCO2 of 52. He did receive Narcan twice and a dose of flumazenil in the ER. He also received a dose of Ativan prior to the flumazenil. Allergies Allergy/AdvReac Type Severity Reaction Status Date / Time No Known Allergies Allergy Verified 09/20/19 05:19 Home Medications Home Medications Medication Instructions Recorded Confirmed Type hydroxychloroquine 400 mg PO DAILY@199906/14/19 09/20/19 History polyethylene glycol 3350 [Miralax] 17 g PO DAILY PRN #30 ea 06/18/19 09/20/19 Rx naloxone 4 mg INTRANASAL UD PRN 06/28/19 09/20/19 History Metamucil 1 tbsp PO DAILY PRN 06/30/19 09/20/19 History acetaminophen [Tylenol Extra 1,000 mg PO Q8 PRN 07/28/19 09/20/19 History Strength] aspirin 81 mg PO DAILY #30 tab 08/12/19 09/20/19 Rx metoprolol succinate 50 mg PO BID 09/04/19 09/20/19 History gabapentin 100 mg PO TID@0800,1400,2100 30 09/13/19 09/20/19 Rx Days #90 cap hydrocortisone [Proctosol HC] 1 applic EXT BID PRN 30 Days #1 09/13/19 09/20/19 Rx tube methadone 10 mg PO BID #0 tab 09/13/19 09/20/19 Rx morphine 7.5 mg PO Q6H PRN #1 tab 09/13/19 09/20/19 Rx Lactobacillus acidoph-L.bulgar 1 tab PO TIDM 09/20/19 09/20/19 History [Lactinex] acetaminophen 650 mg GA Q4 PRN MDD 4gm 09/20/19 09/20/19 History fentanyl 50 mcg TRANSDERMAL [id number] 09/20/19 09/20/19 History haloperidol lactate 1 mg PO Q4 PRN 09/20/19 09/20/19 History hyoscyamine sulfate 0.125 mg PO Q4 PRN 09/20/19 09/20/19 History loperamide [Imodium A-D] 2 mg PO UD PRN 09/20/19 09/20/19 History lorazepam [Ativan] 0.5 mg PO Q4 PRN 09/20/19 09/20/19 History morphine concentrate 5 mg PO . Q 2 HOURS PRN 09/20/19 09/20/19 History ondansetron HCl 8 mg PO Q8 PRN 09/20/19 09/20/19 History pantoprazole 40 mg PO BID 09/20/19 09/20/19 History sucralfate 1 g PO ACHS 09/20/19 09/20/19 History Patient History Medical History Acute hypoxemic respiratory failure 06/2018 Afib Recent confinement June 2018 for new diagnosis of heart failure. Paroxysmal A. fib noted during confinement. Patient discharged on Eliquis for anticoagulation.> PT REPORTS NO LONGER ON ELIQUIS> THIS WAS ISOLATED INCIDENT Eliquis discontinued a few months later by accounting machine servicer after outpatient telemetry did not show recurrent AF. Anxiety Atypical chest pain Cancer associated pain (Inactive) Cardiomyopathy Severe LV dysfunction with EF of 30% found on admission June 2018. TTE 11/02/2018 showed resolution of cardiomyopathy with EF greater than 70%. Chronic anemia CKD (chronic kidney disease), stage III Constipation Elevated troponin 06/2018. Cardiac catheterization performed during admission showed severe LV dysfunction with EF of 30% but large-caliber coronaries with minimal irregularities at most. Elevation felt secondary to demand ischemia from cardiomyopathy/fluid overload. GE junction carcinoma GERD (gastroesophageal reflux disease) HX Hypertension Malignant neoplasm of gastroesophageal junction REASON FOR PROCEDURE > RADIATION AT PRESENT Metastatic cancer to spine (Inactive) Nonischemic cardiomyopathy Paroxysmal atrial fibrillation Pathologic compression fracture of lumbar vertebra L5 with retropulsion > W/C AT PRESENT Pneumonia (Acute) 06/2018 Rheumatoid arthritis Surgical History History of cardiac cath JUNE 2018 > FOR C.P/SOB > [facility] > NO STENTS History of tooth extraction Hx of colonoscopy Family History Grandfather (Maternal) Diabetes Social History Preferred Language: Telugu Communication Ability: Impaired Operations Supervisor Required: No Beliefs That Will Affect Care: None marital status: Current Living Situation: Spouse Other Information That Helps Us Care for You: No Feels Safe at Home: Yes Safety Concerns: Feels Safe At This Time Smoking Status: Never smoker Second Hand Exposure: No ; Hx Alcohol Use: Yes Alcohol type: beer, wine and hard liquor Hx Substance Use: No Review of Systems Review of Systems: Unobtainable due to cognitive status Physical Exam Physical Exam: Patient is chronically ill-appearing. He is lying in bed. He is unresponsive. He does moan at times. Currently BiPAP is in place. Eyes: Pupils pinpoint. ENMT: external ear and nose normal, oropharynx normal Neck: trachea midline, no thyromegaly BiPAP in place. Respiratory: Coarse breath sounds on the BiPAP. Cardiovascular: Tachycardic. 1+ pitting edema in the lower extremities bilaterally. Gastrointestinal (Abdomen): normal bowel sounds, soft, nontender, no hepatosplenomegaly Musculoskeletal: no cyanosis or clubbing, extremities motor strength 5/5 Skin: no rashes, warm and dry Neurologic: Unable to fully assess as the patient is obtunded. GCS of 4. Psychiatric: Unable to be assessed. Results & Data Results & Data ([facility]) Vital Signs (Past 12 Hours) Vital Signs Temp Pulse Pulse Pulse Resp BP BP 09/20/19 11:55 108 H 18 09/20/19 10:48 110 H 16 09/20/19 10:30 97.5 F L 111 H 22 133/87 09/20/19 09:41 105 H 13 122/76 09/20/19 09:30 106 H 17 09/20/19 09:00 108 H 13 09/20/19 08:30 105 H 16 108/74 09/20/19 08:15 107 H 14 129/79 09/20/19 08:02 109 H 18 09/20/19 08:01 97.5 F L 111 H 18 120/77 09/20/19 08:00 114 H 16 09/20/19 07:45 109 H 21 113/72 09/20/19 07:30 111 H 24 130/77 09/20/19 07:15 109 H 22 109/75 09/20/19 07:01 121 H 121/79 09/20/19 07:00 122 H 16 09/20/19 06:53 133 H 34 H 09/20/19 06:45 117 H 110 H 15 133/80 133/80 09/20/19 06:32 135 H 135 H 30 H 145/117 H 145/117 H 09/20/19 06:30 135 H 28 H 09/20/19 06:18 130 H 26 H 103/71 09/20/19 06:12 156 H 25 H 103/71 09/20/19 06:06 158 H 29 H 131/93 09/20/19 06:00 129 H 21 159/88 H 09/20/19 05:56 133 H 22 152/84 H 09/20/19 05:55 132 H 17 152/84 H 09/20/19 05:52 133 H 22 138/109 H 09/20/19 05:51 135 H 18 138/109 H 09/20/19 05:45 129 H 30 H 142/78 H 09/20/19 05:41 137 H 18 137/83 09/20/19 05:34 131 H 13 174/104 H 09/20/19 05:19 111 H 22 132/93 09/20/19 05:17 09/20/19 05:14 09/20/19 05:13 09/20/19 05:02 146 H 23 132/93 09/20/19 05:00 144 H 23 09/20/19 04:58 137 H 16 09/20/19 04:56 101.1 F H 137 H 18 164/144 H 09/20/19 04:53 123 H 18 153/98 H Pulse Ox 09/20/19 11:55 92 09/20/19 10:48 97 09/20/19 10:30 96 09/20/19 09:41 100 09/20/19 09:30 100 09/20/19 09:00 100 09/20/19 08:30 100 09/20/19 08:15 99 09/20/19 08:02 100 09/20/19 08:01 100 09/20/19 08:00 99 09/20/19 07:45 98 09/20/19 07:30 97 09/20/19 07:15 95 09/20/19 07:01 89 L 09/20/19 07:00 96 09/20/19 06:53 99 09/20/19 06:45 100 09/20/19 06:32 88 L 09/20/19 06:30 97 09/20/19 06:18 92 09/20/19 06:12 88 L 09/20/19 06:06 91 09/20/19 06:00 95 09/20/19 05:56 96 09/20/19 05:55 97 09/20/19 05:52 99 09/20/19 05:51 99 09/20/19 05:45 89 L 09/20/19 05:41 83 L 09/20/19 05:34 82 L 09/20/19 05:19 97 09/20/19 05:17 97 09/20/19 05:14 91 09/20/19 05:13 84 L 09/20/19 05:02 91 09/20/19 05:00 09/20/19 04:58 93 09/20/19 04:56 93 09/20/19 04:53 I did personally review his prior labs, chest imaging and the previous notes Coding Level of Care Code 07953 Prolonged Care (int'l) Diagnoses Status post admission to intensive care unit Stage IV malignant neoplasm of esophagus C15.9 Acute hypoxemic respiratory failure J96.01 Lactic acidosis E87.2 Severe sepsis A41.9; R65.20 Acute encephalopathy G93.40 Time Spent (min) 92
--- NOTE | 2019-09-20 13:10 | Electrocardiogram Report ---
Test Reason : Blood Pressure : / mmHG Vent. Rate : 120 BPM Atrial Rate : 120 BPM P-R Int : 112 ms QRS Dur : 102 ms QT Int : 434 ms P-R-T Axes : 000 052 077 degrees QTc Int : 613 ms Poor data quality, interpretation may be adversely affected Sinus tachycardia Low voltage QRS Poor R wave progression, consider anterior CO vs. lead placement vs. LVH Nonspecific ST abnormality Abnormal ECG When compared with ECG of 10-SEP-2019 09:32, T wave inversion now evident in Inferior leads Nonspecific T wave abnormality now evident in Lateral leads Confirmed by Prasanth Perrin ([id number]) on 09/20/2019 1:09:50 PM Referred By: REFERRED SELF Confirmed By:Prasanth Perrin
[2019-09-20] MEDS: CEFEPIME 2,000 MG in SYRINGE 7.5 ML IV SCH ×2 (13:26→22:02)
--- NOTE | 2019-09-20 15:59 | Pharmacy Report ---
Pharmacy Abx Initial Consult - Date of Service September 20, 2019 - Pharmacy Dosing Scope Date of Consult: 09/20/19 Consultation requested by: Dr. Tolbert Pharmacy is consulted to initiate Vancomycin IV dosing therapy, order appropriate labs and adjust drug dose/frequency. - Subjective The patient is a 64 year old M admitted on 09/20/19 09:28. - Objective Height: 6 ft 5 in Weight: 120 kg Vital Signs (Past 12hrs): Vital Signs Temp Pulse Pulse Pulse Resp BP BP 09/20/19 15:30 104 H 15 09/20/19 15:00 103 H 17 09/20/19 14:46 104 H 21 109/64 09/20/19 14:45 105 H 13 109/64 09/20/19 14:30 104 H 14 09/20/19 14:00 110 H 17 09/20/19 13:45 112 H 22 103/70 09/20/19 13:30 110 H 19 09/20/19 13:18 106 H 14 126/76 09/20/19 13:00 110 H 26 H 09/20/19 12:45 106 H 18 126/76 09/20/19 12:30 100 H 12 09/20/19 12:00 116 H 19 09/20/19 11:55 108 H 18 09/20/19 11:46 105 H 17 111/74 09/20/19 11:41 107 H 16 09/20/19 11:00 112 H 09/20/19 10:48 110 H 16 09/20/19 10:34 110 H 09/20/19 10:30 36.4 C L 111 H 22 133/87 09/20/19 10:00 36.9 C 110 H 11 L 134/79 09/20/19 09:45 107 H 15 110/80 09/20/19 09:42 106 H 13 09/20/19 09:41 105 H 13 122/76 09/20/19 09:30 106 H 17 09/20/19 09:00 108 H 13 09/20/19 08:30 105 H 16 108/74 09/20/19 08:15 107 H 14 129/79 09/20/19 08:02 109 H 18 09/20/19 08:01 36.4 C L 111 H 18 120/77 09/20/19 08:00 114 H 16 09/20/19 07:45 109 H 21 113/72 09/20/19 07:30 111 H 24 130/77 09/20/19 07:15 109 H 22 109/75 09/20/19 07:01 121 H 121/79 09/20/19 07:00 122 H 16 09/20/19 06:53 133 H 34 H 09/20/19 06:45 117 H 110 H 15 133/80 133/80 09/20/19 06:32 135 H 135 H 30 H 145/117 H 145/117 H 09/20/19 06:30 135 H 28 H 09/20/19 06:18 130 H 26 H 103/71 09/20/19 06:12 156 H 25 H 103/71 09/20/19 06:06 158 H 29 H 131/93 09/20/19 06:00 129 H 21 159/88 H 09/20/19 05:56 133 H 22 152/84 H 09/20/19 05:55 132 H 17 152/84 H 09/20/19 05:52 133 H 22 138/109 H 09/20/19 05:51 135 H 18 138/109 H 09/20/19 05:45 129 H 30 H 142/78 H 09/20/19 05:41 137 H 18 137/83 09/20/19 05:34 131 H 13 174/104 H 09/20/19 05:19 111 H 22 132/93 09/20/19 05:17 09/20/19 05:14 09/20/19 05:13 09/20/19 05:02 146 H 23 132/93 09/20/19 05:00 144 H 23 09/20/19 04:58 137 H 16 09/20/19 04:56 38.4 C H 137 H 18 164/144 H 09/20/19 04:53 123 H 18 153/98 H Pulse Ox 09/20/19 15:30 94 09/20/19 15:00 09/20/19 14:46 96 09/20/19 14:45 94 09/20/19 14:30 93 09/20/19 14:00 91 09/20/19 13:45 91 09/20/19 13:30 93 09/20/19 13:18 94 09/20/19 13:00 95 09/20/19 12:45 93 09/20/19 12:30 93 09/20/19 12:00 99 09/20/19 11:55 92 09/20/19 11:46 09/20/19 11:41 09/20/19 11:00 09/20/19 10:48 97 09/20/19 10:34 09/20/19 10:30 96 09/20/19 10:00 100 09/20/19 09:45 100 09/20/19 09:42 100 09/20/19 09:41 100 09/20/19 09:30 100 09/20/19 09:00 100 09/20/19 08:30 100 09/20/19 08:15 99 09/20/19 08:02 100 09/20/19 08:01 100 09/20/19 08:00 99 09/20/19 07:45 98 09/20/19 07:30 97 09/20/19 07:15 95 09/20/19 07:01 89 L 09/20/19 07:00 96 09/20/19 06:53 99 09/20/19 06:45 100 09/20/19 06:32 88 L 09/20/19 06:30 97 09/20/19 06:18 92 09/20/19 06:12 88 L 09/20/19 06:06 91 09/20/19 06:00 95 09/20/19 05:56 96 09/20/19 05:55 97 09/20/19 05:52 99 09/20/19 05:51 99 09/20/19 05:45 89 L 09/20/19 05:41 83 L 09/20/19 05:34 82 L 09/20/19 05:19 97 09/20/19 05:17 97 09/20/19 05:14 91 09/20/19 05:13 84 L 09/20/19 05:02 91 09/20/19 05:00 09/20/19 04:58 93 09/20/19 04:56 93 09/20/19 04:53 Lab Results (24hrs): Laboratory Tests (24 Hours) 09/20/19 0509/20/19 05:21 05:18 05:18 WBC 21.69 H Neut # (Auto) 17.80 H Creatinine 0.99 Est Cr Clr Drug Dosing 106.0 Procalcitonin 1.61 H Micro Results: 09/20/19 05:18 Aerobic Blood Culture - Pending Blood Anaerobic Blood Culture - Pending 09/20/19 05:23 Aerobic Blood Culture - Pending Blood Anaerobic Blood Culture - Pending - Risk Factors for Resistance * Hospitalization for 48 hours or more within the past 90 days * Antimicrobial use within the last 90 days- Daptomycin, Zosyn, Cefepime - Assessment & Plan Assessment 64 year old M admitted for Sepsis. Currently with possible aspiration Pneumonia. Patient with several recent hospital admissions and antibiotic therapies. He was ordered Vancomycin and Cefepime today. Blood cultures pending. Nasal swab for MRSA pending. Plan Vancomycin IV * PK Parameters were not calculated since patient was recently admitted in July 2019 with Vancomycin on board. Trough level was within goal then. * Used same dosing as in July since CrCl also similar. * Loading dose: 2500 mg (20 mg/kg) IV x 1 given in ED * Maintenance dose: 1750 mg IV (15 mg/kg) every 12 hours * Goal trough level for PNA: 15 to 20 mcg/mL * Trough level ordered for 09/21/19 before dose at 1800. Pharmacy will continue to follow and will adjust dose/frequency as necessary. Thank you.
--- NOTE | 2019-09-20 16:27 | Pharmacy Report ---
Pharmacy Abx Initial Consult - Date of Service September 20, 2019 - Pharmacy Dosing Scope Date of Consult: [] Consultation requested by: [] Pharmacy is consulted to initiate [] IV/PO dosing therapy, order appropriate labs and adjust drug dose/frequency. - Subjective The patient is a 64 year old M admitted on 09/20/19 09:28. - Objective Height: 6 ft 5 in Weight: 120 kg Vital Signs (Past 12hrs): Vital Signs Temp Pulse Pulse Pulse Resp BP BP 09/20/19 15:30 104 H 15 09/20/19 15:00 103 H 17 09/20/19 14:46 104 H 21 109/64 09/20/19 14:45 105 H 13 109/64 09/20/19 14:30 104 H 14 09/20/19 14:00 110 H 17 09/20/19 13:45 112 H 22 103/70 09/20/19 13:30 110 H 19 09/20/19 13:18 106 H 14 126/76 09/20/19 13:00 110 H 26 H 09/20/19 12:45 106 H 18 126/76 09/20/19 12:30 100 H 12 09/20/19 12:00 116 H 19 09/20/19 11:55 108 H 18 09/20/19 11:46 105 H 17 111/74 09/20/19 11:41 107 H 16 09/20/19 11:00 112 H 09/20/19 10:48 110 H 16 09/20/19 10:34 110 H 09/20/19 10:30 36.4 C L 111 H 22 133/87 09/20/19 10:00 36.9 C 110 H 11 L 134/79 09/20/19 09:45 107 H 15 110/80 09/20/19 09:42 106 H 13 09/20/19 09:41 105 H 13 122/76 09/20/19 09:30 106 H 17 09/20/19 09:00 108 H 13 09/20/19 08:30 105 H 16 108/74 09/20/19 08:15 107 H 14 129/79 09/20/19 08:02 109 H 18 09/20/19 08:01 36.4 C L 111 H 18 120/77 09/20/19 08:00 114 H 16 09/20/19 07:45 109 H 21 113/72 09/20/19 07:30 111 H 24 130/77 09/20/19 07:15 109 H 22 109/75 09/20/19 07:01 121 H 121/79 09/20/19 07:00 122 H 16 09/20/19 06:53 133 H 34 H 09/20/19 06:45 117 H 110 H 15 133/80 133/80 09/20/19 06:32 135 H 135 H 30 H 145/117 H 145/117 H 09/20/19 06:30 135 H 28 H 09/20/19 06:18 130 H 26 H 103/71 09/20/19 06:12 156 H 25 H 103/71 09/20/19 06:06 158 H 29 H 131/93 09/20/19 06:00 129 H 21 159/88 H 09/20/19 05:56 133 H 22 152/84 H 09/20/19 05:55 132 H 17 152/84 H 09/20/19 05:52 133 H 22 138/109 H 09/20/19 05:51 135 H 18 138/109 H 09/20/19 05:45 129 H 30 H 142/78 H 09/20/19 05:41 137 H 18 137/83 09/20/19 05:34 131 H 13 174/104 H 09/20/19 05:19 111 H 22 132/93 09/20/19 05:17 09/20/19 05:14 09/20/19 05:13 09/20/19 05:02 146 H 23 132/93 09/20/19 05:00 144 H 23 09/20/19 04:58 137 H 16 09/20/19 04:56 38.4 C H 137 H 18 164/144 H 09/20/19 04:53 123 H 18 153/98 H Pulse Ox 09/20/19 15:30 94 09/20/19 15:00 09/20/19 14:46 96 09/20/19 14:45 94 09/20/19 14:30 93 09/20/19 14:00 91 09/20/19 13:45 91 09/20/19 13:30 93 09/20/19 13:18 94 09/20/19 13:00 95 09/20/19 12:45 93 09/20/19 12:30 93 09/20/19 12:00 99 09/20/19 11:55 92 09/20/19 11:46 09/20/19 11:41 09/20/19 11:00 09/20/19 10:48 97 09/20/19 10:34 09/20/19 10:30 96 09/20/19 10:00 100 09/20/19 09:45 100 09/20/19 09:42 100 09/20/19 09:41 100 09/20/19 09:30 100 09/20/19 09:00 100 09/20/19 08:30 100 09/20/19 08:15 99 09/20/19 08:02 100 09/20/19 08:01 100 09/20/19 08:00 99 09/20/19 07:45 98 09/20/19 07:30 97 09/20/19 07:15 95 09/20/19 07:01 89 L 09/20/19 07:00 96 09/20/19 06:53 99 09/20/19 06:45 100 09/20/19 06:32 88 L 09/20/19 06:30 97 09/20/19 06:18 92 09/20/19 06:12 88 L 09/20/19 06:06 91 09/20/19 06:00 95 09/20/19 05:56 96 09/20/19 05:55 97 09/20/19 05:52 99 09/20/19 05:51 99 09/20/19 05:45 89 L 09/20/19 05:41 83 L 09/20/19 05:34 82 L 09/20/19 05:19 97 09/20/19 05:17 97 09/20/19 05:14 91 09/20/19 05:13 84 L 09/20/19 05:02 91 09/20/19 05:00 09/20/19 04:58 93 09/20/19 04:56 93 09/20/19 04:53 Lab Results (24hrs): Laboratory Tests (24 Hours) 09/20/19 09/20/19 09/20/19 05:21 05:18 05:18 WBC 21.69 H Neut # (Auto) 17.80 H Creatinine 0.99 Est Cr Clr Drug Dosing 106.0 Procalcitonin 1.61 H Micro Results: 09/20/19 05:18 Aerobic Blood Culture - Pending Blood Anaerobic Blood Culture - Pending 09/20/19 05:23 Aerobic Blood Culture - Pending Blood Anaerobic Blood Culture - Pending - Risk Factors for Resistance * Resident in a longterm or extended-care facility * Hospitalization for 48 hours or more within the past 90 days * Current hospitalization > 5 days * Chronic dialysis within the past 30 days * Immunocompromised (chronic steroid therapy, chemotherapy, immunomodulators) * History of infection with a multidrug-resistant organism: [organism] [site of infection] [date] * Antimicrobial use within the last 90 days [include specific drugs, if known] - Assessment & Plan Assessment 64 year old M [] Plan [] for treatment of [Indication] Vancomycin IV * Estimated PK Parameters: Vd [] L/kg, Eric [] hr-1, t1/2 [] hr * Loading dose: [] mg ([] mg/kg) * Maintenance dose: [] mg IV ([] mg/kg) every [] hours * Goal trough level for [indication] : [] to [] mcg/mL * Trough/Random level ordered for []/[]/[] * A less than traditional dose and/or extended dosing interval has/have been selected due to likelihood of drug accumulation in obese patient/patient with h/o CKD. Piperacillin/tazobactam * [] g bolus administered over 30 minutes, then [] g IV extended infusion every 8 hours for CrCl greater than 20 mL/min OR every 12 hours for CrCl 20 mL/min or less and dialysis. * Aggressive dosing selected due to critically ill status/BMI 35 or more/history of cystic fibrosis. Tobramycin/Gentamicin/Amikacin * Patient meets criteria for extended-interval aminoglycoside dosing per the [facility] nomogram * Dose: [] mg (7 mg/kg) or (15 mg/kg) IV every [] hours * Dosage based on adjusted body weight for patients weighing > 120% of ideal body weight. * Random level ordered for 6-14 hours after the start of the infusion to ensure dosing interval is appropriate. Tobramycin/Gentamicin/Amikacin * Patient is not a candidate for extended-interval dosing due to age/CrCl less than 20 mL/min/end stage renal disease/dialysis/fluctuating kidney function/treatment of Enterococcal endocarditis OR altered pharmacokinetics in the setting of /ascites/significant angulo/cystic fibrosis. * Dose: [] mg ([] mg/kg) IV every [] hours * Dosage based on adjusted body weight for patients weighing > 120% of ideal body weight. * Goal trough level for [indication] : [] to [] mcg/mL * Goal peak level for [indication] : [] to [] mcg/mL * Peak and trough level ordered for []/[]/[] around the [] dose. Pharmacy will continue to follow and will adjust dose/frequency as necessary. Thank you.
[2019-09-20] MEDS: VANCOMYCIN HCL 1,750 MG in SODIUM CHLORIDE 0.9% 500 ML IV SCH (18:22)
[2019-09-20] MEDS ORDERED: STAT IV Infusion **Titration per Protocol STA (20:05)
[2019-09-20] MEDS: DEXMEDETOMIDINE HCL 200 MCG in SODIUM CHLORIDE 0.9% 48 ML IV SCH (20:19)
--- NOTE | 2019-09-20 20:31 | History & Physical Report ---
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 fib, anemia, presented with altered mental status. Sepsis possibly secondary to bilateral pneumonia-possible H CAP versus aspiration Lactic acid improved from 4.1-2.2, continue IV fluids Follow-up blood cultures, sputum culture Vancomycin and Zosyn ordered Acute hypercapnic and hypoxic respiratory failure secondary to pneumonia, narcotic and benzodiazepine BiPAP reordered Pulmonary consulted Severe lung cancer with mets to the lung, liver, bones Post esophageal stent placement Hold methadone and lorazepam at this time Will need evaluation by speech therapist May also need evaluation by GI once encephalopathy and hypoxia resolves Rheumatoid arthritis Hold Plaquenil RV dysfunction No overt signs of volume overload Paroxysmal atrial fibrillation Continue metoprolol Anemia Monitor hemoglobin DVT prophylaxis SCDs for now CODE STATUS Full code as per patient's Disposition Pending Admission and Anticipated Discharge Date Admission Date: September 20, 2019 History of Present Illness 64-year-old male with history of esophageal cancer with metastasis to the lungs, liver, bone, Moderate arthritis on Plaquenil, right ventricular dysfunction, paroxysmal A. fib, anemia, presenting with unresponsive episode this morning. History obtained from patient's due to patient's altered mental status. Patient was discharged from [facility] last week after being treated for pneumonia, and vomiting, placement of esophageal stenting. As per patient's , the patient was noted to have a very poor appetite at home, not able to tolerate food or drinks, mostly more vomiting after eating or drinking. Last night, the patient was given lorazepam for the first time along with his usual methadone. When his checked on him at around 3 AM the patient was noted to be unresponsive. He was then brought to the ER. At the ER, the patient was received unresponsive. Received Narcan and Romazicon. After that, the patient was found to be combative and restless. At one point the patient desaturated, and became hypoxic and lethargic. ABG revealed respiratory acidosis secondary to hypercapnia. She was then placed on BiPAP. After some point, the patient was found to have vomiting and BiPAP was removed. On my exam, the patient is on oxygen mask, but very lethargic. Responds to painful stimuli, able to speak a few words but very garbled, and goes right back to sleep. BiPAP reordered. Primary Care Provider: Grzegorz Jaquez DO Allergies Allergy/AdvReac Type Severity Reaction Status Date / Time No Known Allergies Allergy Verified 09/20/19 05:19 Home Medications Home Medications Medication Instructions Recorded Confirmed Type hydroxychloroquine 400 mg PO DAILY@199906/14/19 09/20/19 History polyethylene glycol 3350 [Miralax] 17 g PO DAILY PRN #30 ea 06/18/19 09/20/19 Rx naloxone 4 mg INTRANASAL UD PRN 06/28/19 09/20/19 History Metamucil 1 tbsp PO DAILY PRN 06/30/19 09/20/19 History acetaminophen [Tylenol Extra 1,000 mg PO Q8 PRN 07/28/19 09/20/19 History Strength] aspirin 81 mg PO DAILY #30 tab 08/12/19 09/20/19 Rx metoprolol succinate 50 mg PO BID 09/04/19 09/20/19 History gabapentin 100 mg PO TID@0800,1400,2100 30 09/13/19 09/20/19 Rx Days #90 cap hydrocortisone [Proctosol HC] 1 applic EXT BID PRN 30 Days #1 09/13/19 09/20/19 Rx tube methadone 10 mg PO BID #0 tab 09/13/19 09/20/19 Rx morphine 7.5 mg PO Q6H PRN #1 tab 09/13/19 09/20/19 Rx Lactobacillus acidoph-L.bulgar 1 tab PO TIDM 09/20/19 09/20/19 History [Lactinex] acetaminophen 650 mg MO Q4 PRN MDD 4gm 09/20/19 09/20/19 History fentanyl 50 mcg TRANSDERMAL [id number] 09/20/19 09/20/19 History haloperidol lactate 1 mg PO Q4 PRN 09/20/19 09/20/19 History hyoscyamine sulfate 0.125 mg PO Q4 PRN 09/20/19 09/20/19 History loperamide [Imodium A-D] 2 mg PO UD PRN 09/20/19 09/20/19 History lorazepam [Ativan] 0.5 mg PO Q4 PRN 09/20/19 09/20/19 History morphine concentrate 5 mg PO . Q 2 HOURS PRN 09/20/19 09/20/19 History ondansetron HCl 8 mg PO Q8 PRN 09/20/19 09/20/19 History pantoprazole 40 mg PO BID 09/20/19 09/20/19 History sucralfate 1 g PO ACHS 09/20/19 09/20/19 History Past Med/Surg History Medical History Acute encephalopathy Acute hypoxemic respiratory failure 06/2018 Acute hypoxemic respiratory failure Afib Recent confinement June 2018 for new diagnosis of heart failure. Paroxysmal A. fib noted during confinement. Patient discharged on Eliquis for anticoagulation.> PT REPORTS NO LONGER ON ELIQUIS> THIS WAS ISOLATED INCIDENT Eliquis discontinued a few months later by fur joiner after outpatient telemetry did not show recurrent AF. Anxiety Atypical chest pain Cancer associated pain (Inactive) Cardiomyopathy Severe LV dysfunction with EF of 30% found on admission June 2018. TTE 11/02/2018 showed resolution of cardiomyopathy with EF greater than 70%. Chronic anemia CKD (chronic kidney disease), stage III Constipation Elevated troponin 06/2018. Cardiac catheterization performed during admission showed severe LV dysfunction with EF of 30% but large-caliber coronaries with minimal irregularities at most. Elevation felt secondary to demand ischemia from cardiomyopathy/fluid overload. GE junction carcinoma GERD (gastroesophageal reflux disease) HX Hypertension Lactic acidosis Malignant neoplasm of gastroesophageal junction REASON FOR PROCEDURE > RADIATION AT PRESENT Metastatic cancer to spine (Inactive) Nonischemic cardiomyopathy Paroxysmal atrial fibrillation Pathologic compression fracture of lumbar vertebra L5 with retropulsion > W/C AT PRESENT Pneumonia (Acute) 06/2018 Rheumatoid arthritis Severe sepsis Stage IV malignant neoplasm of esophagus Status post admission to intensive care unit Surgical History History of cardiac cath JUNE 2018 > FOR C.P/SOB > [facility] > NO STENTS History of tooth extraction Hx of colonoscopy Family History Grandfather (Maternal) Diabetes Social History Preferred Language: Czech 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 Beliefs That Will Affect Care: None marital status: Current Living Situation: Spouse Feels Safe at Home: Yes Smoking Status: Never smoker Second Hand Exposure: No ; Hx Alcohol Use: Yes Alcohol type: beer, wine and hard liquor Hx Substance Use: No Review of Systems Review of Systems: All systems reviewed & are unremarkable except as noted in HPI & below Physical Exam Physical Exam: General-lethargic, not in distress, breathing with no effort or accessory muscle use Head- atraumatic Eyes- PERRL, EOMI, anicteric ENT- oropharynx clear Neck- supple, no JVD, no adenopathy, no thyromegaly; carotids +2/2, no bruits appreciated Lungs- clear to auscultation bilaterally, no rales/wheezes Heart- normal rate, regular rhythm; no murmur, no gallop, no rub appreciated Abdomen- normal bowel sounds, nondistended, soft, nontender, no masses or hepatosplenomegaly Extremities- no pretibial edema, no calf tenderness; peripheral pulses intact Neuro-lethargic, only responds to painful stimuli, moves extremities equally Skin- warm & dry Results & Data Results & Data ([facility]) Vital Signs (Past 12 Hours) Vital Signs Temp Pulse Pulse Resp BP BP Pulse Ox 09/20/19 20:01 102 H 09/20/19 19:56 96 H 16 95 09/20/19 19:46 98 H 17 105/67 98 09/20/19 18:45 37.1 C 101 H 19 109/67 98 09/20/19 17:45 36.7 C 99 H 16 94/62 L 97 09/20/19 17:30 99 H 18 97 09/20/19 17:00 102 H 11 L 95 09/20/19 16:45 102 H 16 95/62 L 95 09/20/19 16:30 100 H 16 95 09/20/19 16:00 103 H 15 95 09/20/19 15:45 101 H 17 86/62 L 98 09/20/19 15:30 104 H 15 94 09/20/19 15:00 103 H 17 93 09/20/19 14:46 104 H 21 109/64 96 09/20/19 14:45 105 H 13 109/64 94 09/20/19 14:30 104 H 14 93 09/20/19 14:00 110 H 17 91 09/20/19 13:45 112 H 22 103/70 91 09/20/19 13:30 110 H 19 93 09/20/19 13:18 106 H 14 126/76 94 09/20/19 13:00 110 H 26 H 95 09/20/19 12:45 106 H 18 126/76 93 09/20/19 12:30 100 H 12 93 09/20/19 12:00 116 H 19 99 09/20/19 11:55 108 H 18 92 09/20/19 11:46 105 H 17 111/74 09/20/19 11:41 107 H 16 09/20/19 11:00 112 H 09/20/19 10:48 110 H 16 97 09/20/19 10:34 110 H 09/20/19 10:30 36.4 C L 111 H 22 133/87 96 09/20/19 10:00 36.9 C 110 H 11 L 134/79 100 09/20/19 09:45 107 H 15 110/80 100 09/20/19 09:42 106 H 13 100 09/20/19 09:41 105 H 13 122/76 100 09/20/19 09:30 106 H 17 100 09/20/19 09:00 108 H 13 100 09/20/19 08:30 105 H 16 108/74 100 Laboratory Results Laboratory Results - last 24 hr 09/20/19 09/20/19 09/20/19 05:07 05:15 05:18 WBC RBC Hgb Hct MCV MCH MCHC RDW Std Deviation RDW Coeff of Arlyn Plt Count MPV Immature Gran % (Auto) Neut % (Auto) Lymph % (Auto) [place] % (Auto) Eos % (Auto) Baso % (Auto) Immature Gran # (Auto) Neut # (Auto) Lymph # (Auto) [place] # (Auto) Eos # (Auto) Baso # (Auto) PT 16.6 H INR 1.6 H APTT 44.1 H PTT Ratio 1.6 ABG pH ABG pCO2 ABG pO2 ABG HCO3 ABG O2 Saturation ABG Base Excess Adrien Test Barometric Pressure Oxygen Given Sodium Potassium Chloride Carbon Dioxide Anion Gap BUN Creatinine Est Cr Clr Drug Dosing Est GFR ( Amer) Est GFR (Non-Af Amer) BUN/Creatinine Ratio Glucose POC Glucose 101 H Lactate Calcium Phosphorus Magnesium Total Bilirubin AST ALT Alkaline Phosphatase Ammonia Troponin I Total Protein Albumin Globulin Albumin/Globulin Ratio Procalcitonin TSH Free T4 Urine Color Dark Yellow Urine Appearance Clear Urine pH 5.5 Ur Specific [place] 1.019 Urine Protein 1+ H Urine Glucose (UA) Negative Urine Ketones 1+ H Urine Blood Negative Urine Nitrite Negative Urine Bilirubin Negative Urine Urobilinogen Negative Ur Leukocyte Esterase Negative Urine WBC (Auto) 1-5 Urine RBC (Auto) 0-4 U Hyaline Cast (Auto) 0 U Epithel Cells (Auto) 0-5 Urine Bacteria (Auto) Negative Nasal Screen MRSA (PCR) COVID-19 PCR SARS Serology 09/20/19 09/20/19 09/20/19 05:18 05:18 05:18 WBC RBC Hgb Hct MCV MCH MCHC RDW Std Deviation RDW Coeff of Arlyn Plt Count MPV Immature Gran % (Auto) Neut % (Auto) Lymph % (Auto) [place] % (Auto) Eos % (Auto) Baso % (Auto) Immature Gran # (Auto) Neut # (Auto) Lymph # (Auto) [place] # (Auto) Eos # (Auto) Baso # (Auto) PT INR APTT PTT Ratio ABG pH ABG pCO2 ABG pO2 ABG HCO3 ABG O2 Saturation ABG Base Excess Adrien Test Barometric Pressure Oxygen Given Sodium 131 L Potassium 3.9 Chloride 96 L Carbon Dioxide 25 Anion Gap 10.0 BUN 8 Creatinine 0.99 Est Cr Clr Drug Dosing 106.0 Est GFR ( Amer) 93.6 Est GFR (Non-Af Amer) 80.7 BUN/Creatinine Ratio 7.7 L Glucose 91 POC Glucose Lactate 4.1 H* Calcium 8.3 L Phosphorus 2.8 Magnesium 1.8 Total Bilirubin 1.4 H AST 189 H ALT 31 Alkaline Phosphatase 1051 H Ammonia Troponin I < 0.015 Total Protein 6.1 L Albumin 1.9 L Globulin 4.2 H Albumin/Globulin Ratio 0.5 L Procalcitonin 1.61 H TSH 16.100 H Free T4 1.27 Urine Color Urine Appearance Urine pH Ur Specific [place] Urine Protein Urine Glucose (UA) Urine Ketones Urine Blood Urine Nitrite Urine Bilirubin Urine Urobilinogen Ur Leukocyte Esterase Urine WBC (Auto) Urine RBC (Auto) U Hyaline Cast (Auto) U Epithel Cells (Auto) Urine Bacteria (Auto) Nasal Screen MRSA (PCR) COVID-19 PCR SARS Serology 09/20/19 09/20/19 09/20/19 05:21 05:23 07:29 WBC 21.69 H RBC 3.04 L Hgb 8.8 L Hct 28.8 L MCV 94.7 MCH 28.9 MCHC 30.6 L RDW Std Deviation 65.8 H RDW Coeff of Arlyn 19.0 H Plt Count 449 H MPV 8.7 Immature Gran % (Auto) 1.6 Neut % (Auto) 82.1 Lymph % (Auto) 6.1 [place] % (Auto) 8.5 Eos % (Auto) 1.4 Baso % (Auto) 0.3 Immature Gran # (Auto) 0.34 H Neut # (Auto) 17.80 H Lymph # (Auto) 1.32 [place] # (Auto) 1.85 H Eos # (Auto) 0.31 Baso # (Auto) 0.07 PT INR APTT PTT Ratio ABG pH 7.19 L* ABG pCO2 71 H ABG pO2 89 ABG HCO3 26 H ABG O2 Saturation 95.0 ABG Base Excess -2.2 Adrien Test Pos Barometric Pressure 734.9 Oxygen Given 10 LITERS O2 Sodium Potassium Chloride Carbon Dioxide Anion Gap BUN Creatinine Est Cr Clr Drug Dosing Est GFR ( Amer) Est GFR (Non-Af Amer) BUN/Creatinine Ratio Glucose POC Glucose Lactate 2.2 H* Calcium Phosphorus Magnesium Total Bilirubin AST ALT Alkaline Phosphatase Ammonia Troponin I Total Protein Albumin Globulin Albumin/Globulin Ratio Procalcitonin TSH Free T4 Urine Color Urine Appearance Urine pH Ur Specific [place] Urine Protein Urine Glucose (UA) Urine Ketones Urine Blood Urine Nitrite Urine Bilirubin Urine Urobilinogen Ur Leukocyte Esterase Urine WBC (Auto) Urine RBC (Auto) U Hyaline Cast (Auto) U Epithel Cells (Auto) Urine Bacteria (Auto) Nasal Screen MRSA (PCR) COVID-19 PCR SARS Serology 09/20/19 09/20/19 09/20/19 07:33 07:33 09:21 WBC RBC Hgb Hct MCV MCH MCHC RDW Std Deviation RDW Coeff of Arlyn Plt Count MPV Immature Gran % (Auto) Neut % (Auto) Lymph % (Auto) [place] % (Auto) Eos % (Auto) Baso % (Auto) Immature Gran # (Auto) Neut # (Auto) Lymph # (Auto) [place] # (Auto) Eos # (Auto) Baso # (Auto) PT INR APTT PTT Ratio ABG pH 7.26 L ABG pCO2 50 H ABG pO2 128 H ABG HCO3 22 ABG O2 Saturation 98.4 H ABG Base Excess -4.8 Adrien Test Pos Barometric Pressure 736.7 Oxygen Given 12 Sodium Potassium Chloride Carbon Dioxide Anion Gap BUN Creatinine Est Cr Clr Drug Dosing Est GFR ( Amer) Est GFR (Non-Af Amer) BUN/Creatinine Ratio Glucose POC Glucose Lactate Calcium Phosphorus Magnesium Total Bilirubin AST ALT Alkaline Phosphatase Ammonia Troponin I Total Protein Albumin Globulin Albumin/Globulin Ratio Procalcitonin TSH Free T4 Urine Color Urine Appearance Urine pH Ur Specific [place] Urine Protein Urine Glucose (UA) Urine Ketones Urine Blood Urine Nitrite Urine Bilirubin Urine Urobilinogen Ur Leukocyte Esterase Urine WBC (Auto) Urine RBC (Auto) U Hyaline Cast (Auto) U Epithel Cells (Auto) Urine Bacteria (Auto) Nasal Screen MRSA (PCR) COVID-19 PCR NEGATIVE SARS Serology Pending 09/20/19 09/20/19 09/20/19 11:07 11:14 13:28 WBC RBC Hgb Hct MCV MCH MCHC RDW Std Deviation RDW Coeff of Arlyn Plt Count MPV Immature Gran % (Auto) Neut % (Auto) Lymph % (Auto) [place] % (Auto) Eos % (Auto) Baso % (Auto) Immature Gran # (Auto) Neut # (Auto) Lymph # (Auto) [place] # (Auto) Eos # (Auto) Baso # (Auto) PT INR APTT PTT Ratio ABG pH 7.31 L ABG pCO2 52 H ABG pO2 140 H ABG HCO3 26 H ABG O2 Saturation 98.8 H ABG Base Excess -0.7 Adrien Test Pos Barometric Pressure 736.7 Oxygen Given 60% Sodium Potassium Chloride Carbon Dioxide Anion Gap BUN Creatinine Est Cr Clr Drug Dosing Est GFR ( Amer) Est GFR (Non-Af Amer) BUN/Creatinine Ratio Glucose POC Glucose 69 L* Lactate Calcium Phosphorus Magnesium Total Bilirubin AST ALT Alkaline Phosphatase Ammonia < 10.0 L Troponin I Total Protein Albumin Globulin Albumin/Globulin Ratio Procalcitonin TSH Free T4 Urine Color Urine Appearance Urine pH Ur Specific [place] Urine Protein Urine Glucose (UA) Urine Ketones Urine Blood Urine Nitrite Urine Bilirubin Urine Urobilinogen Ur Leukocyte Esterase Urine WBC (Auto) Urine RBC (Auto) U Hyaline Cast (Auto) U Epithel Cells (Auto) Urine Bacteria (Auto) Nasal Screen MRSA (PCR) COVID-19 PCR SARS Serology 09/20/19 09/20/19 09/20/19 13:29 13:30 19:26 WBC RBC Hgb Hct MCV MCH MCHC RDW Std Deviation RDW Coeff of Arlyn Plt Count MPV Immature Gran % (Auto) Neut % (Auto) Lymph % (Auto) [place] % (Auto) Eos % (Auto) Baso % (Auto) Immature Gran # (Auto) Neut # (Auto) Lymph # (Auto) [place] # (Auto) Eos # (Auto) Baso # (Auto) PT INR APTT PTT Ratio ABG pH ABG pCO2 ABG pO2 ABG HCO3 ABG O2 Saturation ABG Base Excess Adrien Test Barometric Pressure Oxygen Given Sodium Potassium Chloride Carbon Dioxide Anion Gap BUN Creatinine Est Cr Clr Drug Dosing Est GFR ( Amer) Est GFR (Non-Af Amer) BUN/Creatinine Ratio Glucose POC Glucose 73 70 Lactate Calcium Phosphorus Magnesium Total Bilirubin AST ALT Alkaline Phosphatase Ammonia Troponin I Total Protein Albumin Globulin Albumin/Globulin Ratio Procalcitonin TSH Free T4 Urine Color Urine Appearance Urine pH Ur Specific [place] Urine Protein Urine Glucose (UA) Urine Ketones Urine Blood Urine Nitrite Urine Bilirubin Urine Urobilinogen Ur Leukocyte Esterase Urine WBC (Auto) Urine RBC (Auto) U Hyaline Cast (Auto) U Epithel Cells (Auto) Urine Bacteria (Auto) Nasal Screen MRSA (PCR) Uninterpretable COVID-19 PCR SARS Serology Code Status & VTE Plan VTE Prophylaxis Plan VTE Prophylaxis will be ordered: Yes
[2019-09-21] MEDS: DEXMEDETOMIDINE HCL 200 MCG in SODIUM CHLORIDE 0.9% 48 ML IV SCH ×4 (00:27→14:29)
[2019-09-21] MEDS: CEFEPIME 2,000 MG in SYRINGE 7.5 ML IV SCH ×3 (05:04→21:38)
[2019-09-21] MEDS: VANCOMYCIN HCL 1,750 MG in SODIUM CHLORIDE 0.9% 500 ML IV SCH ×2 (05:04→18:30)
[2019-09-21 05:51] LABS: Albumin Globulin Ratio 0.4 (0.9-2); Albumin Level 1.5 gm/dl (3.4-5.0); Bilirubin,Total 1.1 mg/dl (0.2-1); Creatinine Clr Calc Pharmacy 96.5 ml/min; Est GFR (African American) 79.7; Est GFR (Non-African American) 68.8; Globulin 3.8 gm/dl (2.5-4.0); Magnesium 1.9 mg/dl (1.8-2.4); Phosphorus 3.1 mg/dl (2.5-4.9); Potassium 4.6 mmol/L (3.5-5.1); Total Protein 5.3 gm/dl (6.4-8.2)
[2019-09-21 06:22] LABS: Basophils # (auto) 0.06 K/uL (0-0.2); Basophils % (auto) 0.4 %; Eosinophils % (auto) 1.4 %; Hematocrit (blood only) 26.6 % (42-52); Immature Granulocytes # (auto) 0.07 K/uL (0.00-0.02); Immature Granulocytes % (auto) 0.5 %; Lymphocytes # (auto) 0.69 K/uL (1.2-3.4); Lymphocytes % (auto) 4.9 %; Mean Corpuscular Hemoglobin 28.7 pg (25-34); Mean Corpuscular Hgb Conc 30.1 g/dL (32-36); Mean Corpuscular Volume 95.3 fL (80-100); Mean Platelet Volume 9.1 fL (7.4-10.4); Monocytes # (auto) 0.81 K/uL (0.11-0.59); Monocytes % (auto) 5.7 %; Neutrophils # (auto) 12.35 K/uL (1.4-6.5); Neutrophils % (auto) 87.1 %; Platelet Count 306 K/uL (130-400); RDW Coefficient of Variation 19.1 % (11.5-14.5); RDW Standard Deviation 66.8 fL (36.4-46.3); Red Blood Count 2.79 M/uL (4.7-6.1); White Blood Count 14.18 K/uL (4.8-10.8)
[2019-09-21] MEDS: D5W AND 1/2NSS 1,000 ML IV SCH (08:56)
[2019-09-21 09:07] LABS: iSTAT Allen Test Pass; iSTAT Arterial Blood Gas HCO3 23 meg/L (19-24); iSTAT Arterial Blood Gas pCO2 41 mmHg (35-46); iSTAT Arterial Blood Gas pH 7.35 (7.35-7.45); iSTAT Arterial Blood Gas pO2 84 mmHg (80-95); iSTAT Carbon Dioxide 24 mmol/L (24-31); iSTAT FiO2 30 %; iSTAT Site L Radial
--- NOTE | 2019-09-21 09:29 | Pulmonology Progress Note ---
Date of Service September 21, 2019 Assessment & Plan (1) Status post admission to intensive care unit: Patient clinically improved today. ABG is 7.35/41/84 on 18/60 BiPAP at 30% FiO2. Able to wean off his BiPAP. Patient will need PRN BiPAP and BiPAP with sleep. Procalcitonin is trending upwards. Continue vancomycin and cefepime. MRSA screen was read as uninterpretable. Repeating MRSA screen. LFTs improved slightly. Alk phosphatase continues to be elevated likely related to bony metastatic disease. We are using Precedex periodically for agitation. Will likely need to restart some of his pain medications for bony pain. Consulting palliative care. Patient was apparently on hospice prior to admission. Ideally, patient should go back to hospice as he has end-stage esophageal cancer. N.p.o. for now. Holding his p.o. metoprolol. Can use as needed IV metoprolol for the time being. Will need a swallow assessment. Holding Plaquenil currently as this is a p.o. med. He does have a history of rheumatoid arthritis. CRITICAL CARE TIME - I have personally spent 32 minutes of critical care time in the direct management of this patient. This is a life/limb threatening event. This includes time spent evaluating patient, direct bedside care, chart review, placing orders, interpretation of diagnostic studies, discussion with consultants, patient, and family members, as well as other required patient management activities. This time is exclusive of all separately billable procedures, and teaching time and separate from and in addition to any other critical care service time. (2) Acute encephalopathy: (3) Severe sepsis: (4) Hypoxia: (5) Atrial fibrillation with rapid ventricular response: (6) Malignant neoplasm of gastroesophageal junction: (7) Pneumonia: Laterality: right Lung location: middle lobe of lung Pneumonia type: due to unspecified organism Qualified Code(s): J18.9 - Pneumonia, unspecified organism Admission and Anticipated Discharge Date Admission Date: September 20, 2019 Subjective Patient able to be weaned off BiPAP this morning. ABG does appear better. He is moaning intermittently. He is much more awake and alert than he was yesterday. He had chest pain this midmorning and was placed on Precedex for anxiety. Review of Systems Review of Systems: Unobtainable due to mental health condition Physical Exam Constitutional: Patient is awake and alert. Intermittently confused. Moaning at times. He is very pale. Eyes: PERRL, conjunctivae normal, anicteric sclerae ENMT: external ear and nose normal, oropharynx normal Neck: trachea midline, no thyromegaly Respiratory: Coarse breath sounds bilaterally. Diminished in the bases. Cardiovascular: RRR, no murmur, no edema Gastrointestinal (Abdomen): normal bowel sounds, soft, nontender, no hepatosplenomegaly Musculoskeletal: no cyanosis or clubbing, extremities motor strength 5/5 Skin: no rashes, warm and dry Neurologic: patellar DTR's 2+ bilat, sensation intact Psychiatric: Mood: + anxious mood and + dysphoric mood Results & Data Results & Data ([facility]) Vital Signs (Past 12 Hours) Vital Signs Temp Pulse Resp BP Pulse Ox 09/21/19 07:09 69 20 94 09/21/19 06:54 70 18 114/76 96 09/21/19 06:38 63 19 89/57 L 90 09/21/19 06:30 63 16 91 09/21/19 05:16 100 H 26 H 120/82 09/21/19 05:07 95 H 16 111/90 98 09/21/19 04:38 63 17 87/55 L 97 09/21/19 03:51 97.7 F 88 18 135/88 100 09/21/19 03:48 66 15 87/60 L 98 09/21/19 02:44 77 17 96/67 L 99 09/21/19 02:01 67 16 98 09/21/19 01:46 67 15 81/51 L 96 09/21/19 00:46 83 16 105/60 98 09/21/19 00:19 96 H 22 120/77 95 09/20/19 23:46 98.8 F 85 16 83/56 L 92 09/20/19 23:24 80 09/20/19 23:15 100 H 20 98 09/20/19 23:01 98.8 F 90 15 110/72 98 09/20/19 22:45 80 16 79/51 L 97 09/20/19 21:46 85 16 86/57 L 97 I personally reviewed the patient's laboratory data, chest imaging and previous notes. PG Care Time/CCT Total # of Minutes Spent Total Time Spent with Patient: Total time spent is greater than 50% in coordination of care (as documented) at patient's floor/unit and/or counseling patient: Coding Level of Care Code None Diagnoses Status post admission to intensive care unit Acute encephalopathy G93.40 Severe sepsis A41.9; R65.20 Hypoxia R09.02 Atrial fibrillation with rapid ventricular response I48.91 Malignant neoplasm of gastroesophageal junction C16.0 Pneumonia J18.9 Laterality: right Lung location: middle lobe of lung Pneumonia type: due to unspecified organism Time Spent (min) 32
--- NOTE | 2019-09-21 10:13 | XRay Report ---
XR chest 1V portable CLINICAL HISTORY: Pneumonia, sepsis COMPARISON STUDY: 09/20/2019 FINDINGS: The cardiac and mediastinal contours remain stable. There is a right-sided A-Port catheter, unchanged in position with its tip projected over the right internal jugular vein. There is a stable 57 x 17 mm dural based opacity on the right. There are progressive predominantly interstitial right lung opacities. Airspace opacities are also present at the left medial lung base.[There are multiple left lung pulmonary nodules. IMPRESSION: 1. Persistent pleural-based right-sided chest wall mass 2. Progressive right lung airspace opacities. Stable airspace opacities the left medial lung base. 3. Multiple left lung pulmonary nodules, concerning for metastatic disease ACT 112: Negative or not required by law. Electronically signed by: Berhane Harrington M.D. 09/21/2019 10:11 AM
--- NOTE | 2019-09-21 14:20 | Palliative Care Progress Note ---
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 Patient had been hospitalized from 09/03 to 09/12 for altered mental status and fevers. The mental status changes I thought were due to increased fentanyl patch absorption due to fevers. Patient was weaned off his fentanyl patch, his methadone was increased from 5 mg 3 times daily to 10 mg twice daily, and his gabapentin was also weaned. Patient is very sensitive to medications that sedate. Patient stopped his Plaquenil in order to further titrate his methadone due to borderline prolonged QTC-his QTC was 420 off his Plaquenil. Due to recurrent vomiting-patient had an EGD and a stent placed on 09/07. Patient was discharged home with home health and was quickly transitioned to hospice. On admission on 09/19 patient's QTC was found to be 613. Patient was also found to be hypoxic-was placed on BiPAP, his blood glucose was 50. Of note his INR is elevated at 1.6-may be due to liver mets. Patient's mental status did improve somewhat with his increase in blood sugar, patient remained lethargic. Patient was admitted to the ICU. Patient was arousable on exam, speech was somewhat mumbled which it has been in the past when he is sedated. Spoke with patient at length regarding CODE STATUS-patient does not want intubation, chest compressions, or shock. Patient feels that he is nearing end-of-life and stated he wanted to leave his one more time. Spoke with patient's at length-she is in agreement with a DNR status. Will move patient to comfort care and transfer to a medical floor to allow to visit. Spoke with regarding methadone-given his prolonged QT it is not safe to use at current dose-we will discontinue methadone, and plan to place patient on a Dilaudid METER/RELAY TECHNICIAN. Patient's last dose of methadone was the evening of 09/18. Collaborated with pharmacy regarding appropriate Dilaudid dosing-methadone still present in patient's system, will need to be careful with any additional opioids. We will start with 0.2 mg IV every 2 hours-we will monitor Dilaudid requirements overnight. Hope to discharge patient home on hospice tomorrow on Dilaudid METER/RELAY TECHNICIAN for pain control. Patient's pain requirements are expected to change as methadone levels diminish. -Stage IV esophageal cancer-mets to lung liver and bone-patient appropriate for home hospice care, continue pain management for bone mets -Prolonged QT interval-new, patient is off Plaquenil and has been since his last admission, QTC was 420 at that time. May be due to altered metabolism due to increased liver mets. Will need to discontinue methadone and transition to Dilaudid METER/RELAY TECHNICIAN. -Mets to bone-patient's main pain is in his back-due to pathologic burst compression fracture of L5-plan to transition to Dilaudid METER/RELAY TECHNICIAN -Patient's CODE STATUS has now reverted to DO NOT RESUSCITATE per discussion with the patient as well as his -Plan to discharge home with hospice, plan to start Dilaudid METER/RELAY TECHNICIAN for pain control. (2) Stage IV malignant neoplasm of esophagus: (3) Prolonged QT interval: (4) Metastatic adenocarcinoma to bone: (5) Cancer related pain: (6) Pathologic compression fracture of lumbar vertebra: Subjective Patient well-known to our service from prior hospitalizations in addition to palliative outpatient clinic. - Patient is a 64 year old male patient with PMH stage IV esophageal cancer diagnosed early May 2019-s/p XRT completed 07/01/2019, mets to lungs, liver and bone, has not started systemic therapy yet, HTN, RA-no longer on Plaquenil- discontinued on his last admission, chronic lower extremity lymphedema, cardiomyopathy who was sent to the ED by his when she was unable to arouse him at 3 AM. Patient had been hospitalized from 09/03 to 09/12 for altered mental status and fevers. The mental status changes I thought were due to increased fentanyl patch absorption due to fevers. Patient was weaned off his fentanyl patch, his methadone was increased from 5 mg 3 times daily to 10 mg twice daily, and his gabapentin was also weaned. Patient is very sensitive to medications that sedate. Patient stopped his Plaquenil in order to further titrate his methadone due to borderline prolonged QTC-his QTC was 420 off his Plaquenil. Due to recurrent vomiting-patient had an EGD and a stent placed on 09/07. Patient was discharged home with home health and was quickly transitioned to hospice. On admission on 09/19 patient's QTC was found to be 613. Patient was also found to be hypoxic-was placed on BiPAP, his blood glucose was 50. Of note his INR is elevated at 1.6-may be due to liver mets. Patient's mental status did improve somewhat with his increase in blood sugar, patient remained lethargic. Patient was admitted to the ICU. Patient was arousable on exam, speech was somewhat mumbled which it has been in the past when he is sedated. Spoke with patient at length regarding CODE STATUS-patient does not want intubation, chest compressions, or shock. Patient feels that he is nearing end-of-life and stated he wanted to leave his one more time. Spoke with patient's at length-she is in agreement with a DNR status. Will move patient to comfort care and transfer to a medical floor to allow to visit. Spoke with regarding methadone-given his prolonged QT it is not safe to use at current dose-we will discontinue methadone, and plan to place patient on a Dilaudid METER/RELAY TECHNICIAN. Patient's last dose of methadone was the evening of 09/18. Collaborated with pharmacy regarding appropriate Dilaudid dosing-methadone still present in patient's system, will need to be careful with any additional opioids. We will start with 0.2 mg IV every 2 hours-we will monitor Dilaudid requirements overnight. Hope to discharge patient home on hospice tomorrow on Dilaudid METER/RELAY TECHNICIAN for pain control. Patient's pain requirements are expected to change as methadone levels diminish. Review of Systems Review of Systems: Unobtainable due to cognitive status On exam patient denied pain Physical Exam Physical Exam: PE: Patient arousable, lethargic, mumbled speech HEENT: EOMI, hearing within normal limits Respirations: Unlabored, on O2 via nasal cannula CV: Regular rate, lower extremity edema-unchanged Abdomen: Soft, nontender, obese Neuro: Arousable, doses off quickly, able to answer questions, oriented. Results & Data Vital Signs (Past 12 Hours) Vital Signs Temp Pulse Resp BP Pulse Ox 09/21/19 11:38 66 17 84/49 L 94 09/21/19 10:38 70 23 102/57 L 96 09/21/19 09:38 60 18 93/54 L 93 09/21/19 08:38 71 20 113/72 95 09/21/19 07:38 98.6 F 61 14 95/64 L 87 L 09/21/19 07:09 69 20 94 09/21/19 06:54 70 18 114/76 96 09/21/19 06:38 63 19 89/57 L 90 09/21/19 06:30 63 16 91 09/21/19 05:16 100 H 26 H 120/82 09/21/19 05:07 95 H 16 111/90 98 09/21/19 04:38 63 17 87/55 L 97 09/21/19 03:51 97.7 F 88 18 135/88 100 09/21/19 03:48 66 15 87/60 L 98 09/21/19 02:44 77 17 96/67 L 99 PG Care Time/CCT Total # of Minutes Spent Total Time Spent with Patient: Total time spent 85 minutes with greater than 50% of the time at bedside, collaborated with pharmacy, nursing, ICU and attending physician. Spoke with patient's on 2 separate occasions. Coding Diagnoses Palliative care encounter Z51.5 Stage IV malignant neoplasm of esophagus C15.9 Prolonged QT interval R94.31 Metastatic adenocarcinoma to bone C79.51 Cancer related pain G89.3 Pathologic compression fracture of lumbar vertebra M48.56XA
--- NOTE | 2019-09-21 14:56 | Palliative Care Consultation ---
Date of Consultation September 21, 2019 Assessment & Plan (1) Palliative care encounter: - Patient is a 64 year old male patient with PMH stage IV esophageal cancer diagnosed early May 2019-s/p XRT completed 07/01/2019, mets to lungs, liver and bone, has not started systemic therapy yet, HTN, RA-no longer on Plaquenil-discontinued on his last admission, chronic lower extremity lymphedema, cardiomyopathy who was sent to the ED by his when she was unable to arouse him at 3 AM. Patient had been hospitalized from 09/03 to 09/12 for altered mental status and fevers. The mental status changes I thought were due to increased fentanyl patch absorption due to fevers. Patient was weaned off his fentanyl patch, his methadone was increased from 5 mg 3 times daily to 10 mg twice daily, and his gabapentin was also weaned. Patient is very sensitive to medications that sedate. Patient stopped his Plaquenil in order to further titrate his methadone due to borderline prolonged QTC-his QTC was 420 off his Plaquenil. Due to recurrent vomiting-patient had an EGD and a stent placed on 09/07. Patient was discharged home with home health and was quickly transitioned to hospice. On admission on 09/19 patient's QTC was found to be 613. Patient was also found to be hypoxic-was placed on BiPAP, his blood glucose was 50. Of note his INR is elevated at 1.6-may be due to liver mets. Patient's mental status did improve somewhat with his increase in blood sugar, patient remained lethargic. Patient was admitted to the ICU. Patient was arousable on exam, speech was somewhat mumbled which it has been in the past when he is sedated. Spoke with patient at length regarding CODE STATUS-patient does not want intubation, chest compressions, or shock. Patient feels that he is nearing end-of-life and stated he wanted to leave his one more time. Spoke with patient's at length-she is in agreement with a DNR status. Will move patient to comfort care and transfer to a medical floor to allow to visit. Spoke with regarding methadone-given his prolonged QT it is not safe to use at current dose-we will discontinue methadone, and plan to place patient on a Dilaudid AT RISK SPECIALIST. Patient's last dose of methadone was the evening of 09/18. Collaborated with pharmacy regarding appropriate Dilaudid dosing-methadone still present in patient's system, will need to be careful with any additional opioids. We will start with 0.2 mg IV every 2 hours-we will monitor Dilaudid requirements overnight. Hope to discharge patient home on hospice tomorrow on Dilaudid AT RISK SPECIALIST for pain control. Patient's pain requirements are expected to change as methadone levels diminish. -Stage IV esophageal cancer-mets to lung liver and bone-patient appropriate for home hospice care, continue pain management for bone mets -Prolonged QT interval-new, patient is off Plaquenil and has been since his last admission, QTC was 420 at that time. May be due to altered metabolism due to increased liver mets. Will need to discontinue methadone and transition to Dilaudid AT RISK SPECIALIST. -Mets to bone-patient's main pain is in his back-due to pathologic burst compression fracture of L5-plan to transition to Dilaudid AT RISK SPECIALIST -Patient's CODE STATUS has now reverted to DO NOT RESUSCITATE per discussion with the patient as well as his -Plan to discharge home with hospice, plan to start Dilaudid AT RISK SPECIALIST for pain control. (2) Stage IV malignant neoplasm of esophagus: (3) Prolonged QT interval: (4) Metastatic adenocarcinoma to bone: (5) Cancer related pain: (6) Pathologic compression fracture of lumbar vertebra: History of Present Illness Reason for Consultation: Assist with pain management as well as goals of care Requesting Physician: Dr. Tolbert Attending Physician: Jaren Quintanilla MD History of Present Illness - Patient is a 64 year old male patient with PMH stage IV esophageal cancer diagnosed early May 2019-s/p XRT completed 07/01/2019, mets to lungs, liver and bone, has not started systemic therapy yet, HTN, RA-no longer on Plaquenil- discontinued on his last admission, chronic lower extremity lymphedema, cardiomyopathy who was sent to the ED by his when she was unable to arouse him at 3 AM. Patient had been hospitalized from 09/03 to 09/12 for altered mental status and fevers. The mental status changes I thought were due to increased fentanyl patch absorption due to fevers. Patient was weaned off his fentanyl patch, his methadone was increased from 5 mg 3 times daily to 10 mg twice daily, and his gabapentin was also weaned. Patient is very sensitive to medications that sedate. Patient stopped his Plaquenil in order to further titrate his methadone due to borderline prolonged QTC-his QTC was 420 off his Plaquenil. Due to recurrent vomiting-patient had an EGD and a stent placed on 09/07. Patient was discharged home with home health and was quickly transitioned to hospice. On admission on 09/19 patient's QTC was found to be 613. Patient was also found to be hypoxic-was placed on BiPAP, his blood glucose was 50. Of note his INR is elevated at 1.6-may be due to liver mets. Patient's mental status did improve somewhat with his increase in blood sugar, patient remained lethargic. Patient was admitted to the ICU. Patient was arousable on exam, speech was somewhat mumbled which it has been in the past when he is sedated. Spoke with patient at length regarding CODE STATUS-patient does not want intubation, chest compressions, or shock. Patient feels that he is nearing end-of-life and stated he wanted to leave his one more time. Spoke with patient's at length-she is in agreement with a DNR status. Will move patient to comfort care and transfer to a medical floor to allow to visit. Spoke with regarding methadone-given his prolonged QT it is not safe to use at current dose-we will discontinue methadone, and plan to place patient on a Dilaudid AT RISK SPECIALIST. Patient's last dose of methadone was the evening of 09/18. Collaborated with pharmacy regarding appropriate Dilaudid dosing-methadone still present in patient's system, will need to be careful with any additional opioids. We will start with 0.2 mg IV every 2 hours-we will monitor Dilaudid requirements overnight. Hope to discharge patient home on hospice tomorrow on Dilaudid AT RISK SPECIALIST for pain control. Patient's pain requirements are expected to change as methadone levels diminish. Allergies Allergy/AdvReac Type Severity Reaction Status Date / Time No Known Allergies Allergy Verified 09/20/19 05:19 Home Medications Home Medications Medication Instructions Recorded Confirmed Type hydroxychloroquine 400 mg PO DAILY@199906/14/19 09/20/19 History polyethylene glycol 3350 [Miralax] 17 g PO DAILY PRN #30 ea 06/18/19 09/20/19 Rx naloxone 4 mg INTRANASAL UD PRN 06/28/19 09/20/19 History Metamucil 1 tbsp PO DAILY PRN 06/30/19 09/20/19 History acetaminophen [Tylenol Extra 1,000 mg PO Q8 PRN 07/28/19 09/20/19 History Strength] aspirin 81 mg PO DAILY #30 tab 08/12/19 09/20/19 Rx metoprolol succinate 50 mg PO BID 09/04/19 09/20/19 History gabapentin 100 mg PO TID@0800,1400,2100 30 09/13/19 09/20/19 Rx Days #90 cap hydrocortisone [Proctosol HC] 1 applic EXT BID PRN 30 Days #1 09/13/19 09/20/19 Rx tube methadone 10 mg PO BID #0 tab 09/13/19 09/20/19 Rx morphine 7.5 mg PO Q6H PRN #1 tab 09/13/19 09/20/19 Rx Lactobacillus acidoph-L.bulgar 1 tab PO TIDM 09/20/19 09/20/19 History [Lactinex] acetaminophen 650 mg ND Q4 PRN MDD 4gm 09/20/19 09/20/19 History fentanyl 50 mcg TRANSDERMAL [id number] 09/20/19 09/20/19 History haloperidol lactate 1 mg PO Q4 PRN 09/20/19 09/20/19 History hyoscyamine sulfate 0.125 mg PO Q4 PRN 09/20/19 09/20/19 History loperamide [Imodium A-D] 2 mg PO UD PRN 09/20/19 09/20/19 History lorazepam [Ativan] 0.5 mg PO Q4 PRN 09/20/19 09/20/19 History morphine concentrate 5 mg PO . Q 2 HOURS PRN 09/20/19 09/20/19 History ondansetron HCl 8 mg PO Q8 PRN 09/20/19 09/20/19 History pantoprazole 40 mg PO BID 09/20/19 09/20/19 History sucralfate 1 g PO ACHS 09/20/19 09/20/19 History Patient History Medical History Acute encephalopathy Acute hypoxemic respiratory failure 06/2018 Acute hypoxemic respiratory failure Afib Recent confinement June 2018 for new diagnosis of heart failure. Paroxysmal A. fib noted during confinement. Patient discharged on Eliquis for anticoagulation.> PT REPORTS NO LONGER ON ELIQUIS> THIS WAS ISOLATED INCIDENT Eliquis discontinued a few months later by miller apprentice after outpatient telemetry did not show recurrent AF. Anxiety Atypical chest pain Cancer associated pain (Inactive) Cardiomyopathy Severe LV dysfunction with EF of 30% found on admission June 2018. TTE 11/02/2018 showed resolution of cardiomyopathy with EF greater than 70%. Chronic anemia CKD (chronic kidney disease), stage III Constipation Elevated troponin 06/2018. Cardiac catheterization performed during admission showed severe LV dysfunction with EF of 30% but large-caliber coronaries with minimal irregularities at most. Elevation felt secondary to demand ischemia from cardiomyopathy/fluid overload. GE junction carcinoma GERD (gastroesophageal reflux disease) HX Hypertension Lactic acidosis Malignant neoplasm of gastroesophageal junction REASON FOR PROCEDURE > RADIATION AT PRESENT Metastatic cancer to spine (Inactive) Nonischemic cardiomyopathy Paroxysmal atrial fibrillation Pathologic compression fracture of lumbar vertebra L5 with retropulsion > W/C AT PRESENT Pneumonia (Acute) 06/2018 Rheumatoid arthritis Severe sepsis Stage IV malignant neoplasm of esophagus Status post admission to intensive care unit Surgical History History of cardiac cath JUNE 2018 > FOR C.P/SOB > [facility] > NO STENTS History of tooth extraction Hx of colonoscopy Family History Grandfather (Maternal) Diabetes Social History Preferred Language: Yi Communication Ability: Effective Bone Plant Supervisor Required: No Beliefs That Will Affect Care: None marital status: Current Living Situation: Spouse Other Information That Helps Us Care for You: No Feels Safe at Home: Yes Safety Concerns: Feels Safe At This Time Smoking Status: Never smoker Second Hand Exposure: No ; Hx Alcohol Use: Yes Alcohol type: beer, wine and hard liquor Hx Substance Use: No Review of Systems Review of Systems: Unobtainable due to cognitive status Patient was able to deny pain on exam Physical Exam Physical Exam: PE: Patient arousable, lethargic, mumbled speech HEENT: EOMI, hearing within normal limits Respirations: Unlabored, on O2 via nasal cannula CV: Regular rate, lower extremity edema-unchanged Abdomen: Soft, nontender, obese Neuro: Arousable, doses off quickly, able to answer questions, oriented. Results & Data Vital Signs (Past 12 Hours) Vital Signs Temp Pulse Resp BP Pulse Ox 09/21/19 11:38 66 17 84/49 L 94 09/21/19 10:38 70 23 102/57 L 96 09/21/19 09:38 60 18 93/54 L 93 09/21/19 08:38 71 20 113/72 95 09/21/19 07:38 98.6 F 61 14 95/64 L 87 L 09/21/19 07:09 69 20 94 09/21/19 06:54 70 18 114/76 96 09/21/19 06:38 63 19 89/57 L 90 09/21/19 06:30 63 16 91 09/21/19 05:16 100 H 26 H 120/82 09/21/19 05:07 95 H 16 111/90 98 09/21/19 04:38 63 17 87/55 L 97 09/21/19 03:51 97.7 F 88 18 135/88 100 09/21/19 03:48 66 15 87/60 L 98 PG Care Time/CCT Total # of Minutes Spent Total Time Spent with Patient: Total time spent 100 minutes with greater than 50% of the time at bedside discussing CODE STATUS with patient, assessing pain control, collaborating with nursing, ICU physician, attending physician and case management. Spoke with patient's on 2 separate occasions. Prolonged Care Time Prolonged Care Time: Yes Total Prolonged Care Time: 30 Coding Level of Care Code 34263 Inpt Consult Level 3 Diagnoses Palliative care encounter Z51.5 Stage IV malignant neoplasm of esophagus C15.9 Prolonged QT interval R94.31 Metastatic adenocarcinoma to bone C79.51 Cancer related pain G89.3 Pathologic compression fracture of lumbar vertebra M48.56XA Additional Codes Prolonged Care Time - Prolonged Care Time: Yes ([id number]) Time Spent (min) 100 Critical Care Time Prolonged Care Time Prolonged Care Time: Yes Total Prolonged Care Time: 30 100
--- NOTE | 2019-09-21 16:04 | Electrocardiogram Report ---
Test Reason : Blood Pressure : / mmHG Vent. Rate : 068 BPM Atrial Rate : 068 BPM P-R Int : 162 ms QRS Dur : 094 ms QT Int : 416 ms P-R-T Axes : 068 042 046 degrees QTc Int : 442 ms Poor data quality, interpretation may be adversely affected Normal sinus rhythm Low voltage QRS Borderline ECG When compared with ECG of 20-SEP-2019 05:13, Vent. rate has decreased BY 52 BPM Minimal criteria for Anterior infarct are no longer Present T wave inversion no longer evident in Inferior leads Nonspecific T wave abnormality no longer evident in Anterolateral leads Confirmed by Karlo Andrews ([id number]) on 09/21/2019 4:03:56 PM Referred By: REFERRED SELF Confirmed By:Karlo Andrews
[2019-09-21] MEDS: HYDROmorphone INJ 0.5 MG/0.5 ML SYR IV PRN ×2 (17:24→21:00)
[2019-09-21] MEDS ORDERED: VANCOMYCIN TROUGH ONE (17:30)
--- NOTE | 2019-09-21 18:13 | Hospitalist Progress Note ---
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 fib, anemia, presented with altered mental status. Sepsis possibly secondary to bilateral pneumonia-possible HCAP versus aspiration Lactic acid improved from 4.1-2.2 blood cultures, sputum culture: pending Vancomycin and cefepime given --Palliative care consulted, discussed with patient's , patient transition to comfort measures Discussed with Dr. Perdomo, recommend to continue IV fluids and IV antibiotics at this time, Dilaudid IV as needed started Plan to transition to home with hospice with Dilaudid [employer] pump tomorrow Acute hypercapnic and hypoxic respiratory failure secondary to pneumonia, narcotic and benzodiazepine BiPAP reordered, ABG improved, weaned off BiPAP Currently on nasal cannula Pulmonary consulted Severe lung cancer with mets to the lung, liver, bones s/Post esophageal stent placement during this admission Holding usual methadone and lorazepam at this time IV Dilaudid PRN ordered may have sips of water, and ice chips if patient requests Need to reevaluate if patient is awake enough for clear liquid diet as he is a very high aspiration risk Rheumatoid arthritis Hold Plaquenil RV dysfunction No overt signs of volume overload Paroxysmal atrial fibrillation Continue metoprolol Anemia Monitor hemoglobin DVT prophylaxis SCDs for now CODE STATUS DNR as per patient's Disposition Discharge to home with hospice with Dilaudid [employer] EXPERT pump tomorrow, to be arranged by palliative care service Admission and Anticipated Discharge Date Admission Date: September 20, 2019 Subjective Follow-up for altered mental status, acute hypoxic and hypercapnic respiratory failure, bilateral pneumonia Off BiPAP Seen resting in bed, awake and alert, oriented x1-2 Patient slightly confused, improves with reorientation Not in distress, comfortable States he feels fine overall, denies pain, shortness of breath, nausea or abdominal pain Review of Systems Review of Systems: All systems reviewed & are unremarkable except as noted in HPI & below Physical Exam Physical Exam: General- oriented x 1-2, not in distress, speaks in sentences with no effort or accessory muscle use Eyes- anicteric Neck- no JVD Lungs- clear breath sounds bilaterally, no rales/wheezes Heart- normal rate, regular rhythm; no murmurs Abdomen- normal bowel sounds, mildly distended, soft, nontender Extremities- no pretibial edema, no calf tenderness Neuro- alert, oriented x 1-2; mild confusion, but no gross focal neurologic deficits Skin- warm & dry Results & Data Results & Data ([facility]) Vital Signs (Past 12 Hours) Vital Signs Temp Pulse Resp BP Pulse Ox 09/21/19 11:38 66 17 84/49 L 94 09/21/19 10:38 70 23 102/57 L 96 09/21/19 09:38 60 18 93/54 L 93 09/21/19 08:38 71 20 113/72 95 09/21/19 07:38 37 C 61 14 95/64 L 87 L 09/21/19 07:09 69 20 94 09/21/19 06:54 70 18 114/76 96 09/21/19 06:38 63 19 89/57 L 90 09/21/19 06:30 63 16 91 Laboratory Results Laboratory Results - last 24 hr 09/20/19 09/20/19 09/20/19 13:30 19:26 23:19 WBC RBC Hgb Hct MCV MCH MCHC RDW Std Deviation RDW Coeff of Arlyn Plt Count MPV Immature Gran % (Auto) Neut % (Auto) Lymph % (Auto) [place] % (Auto) Eos % (Auto) Baso % (Auto) Immature Gran # (Auto) Neut # (Auto) Lymph # (Auto) [place] # (Auto) Eos # (Auto) Baso # (Auto) Sample Site POC pH POC pCO2 POC pO2 POC HCO3 POC Total CO2 POC Base Excess POC ABG O2 Sat Adrien Test O2 Delivery Device POC FiO2 IPAP Sodium Potassium Chloride Carbon Dioxide Anion Gap BUN Creatinine Est Cr Clr Drug Dosing Est GFR ( Amer) Est GFR (Non-Af Amer) BUN/Creatinine Ratio Glucose POC Glucose 70 77 Calcium Phosphorus Magnesium Total Bilirubin AST ALT Alkaline Phosphatase Total Protein Albumin Globulin Albumin/Globulin Ratio Procalcitonin Nasal Screen MRSA (PCR) Uninterpretable Vancomycin Trough 09/21/19 09/21/19 09/21/19 04:27 04:27 04:27 WBC 14.18 H RBC 2.79 L Hgb 8.0 L Hct 26.6 L MCV 95.3 MCH 28.7 MCHC 30.1 L RDW Std Deviation 66.8 H RDW Coeff of Arlyn 19.1 H Plt Count 306 MPV 9.1 Immature Gran % (Auto) 0.5 Neut % (Auto) 87.1 Lymph % (Auto) 4.9 [place] % (Auto) 5.7 Eos % (Auto) 1.4 Baso % (Auto) 0.4 Immature Gran # (Auto) 0.07 H Neut # (Auto) 12.35 H Lymph # (Auto) 0.69 L [place] # (Auto) 0.81 H Eos # (Auto) 0.20 Baso # (Auto) 0.06 Sample Site POC pH POC pCO2 POC pO2 POC HCO3 POC Total CO2 POC Base Excess POC ABG O2 Sat Adrien Test O2 Delivery Device POC FiO2 IPAP Sodium 133 L Potassium 4.6 D Chloride 100 Carbon Dioxide 24 Anion Gap 9.0 BUN 11 Creatinine 1.13 Est Cr Clr Drug Dosing 96.5 Est GFR ( Amer) 79.7 Est GFR (Non-Af Amer) 68.8 BUN/Creatinine Ratio 10.0 Glucose 83 POC Glucose Calcium 8.0 L Phosphorus 3.1 Magnesium 1.9 Total Bilirubin 1.1 H AST 194 H ALT 27 Alkaline Phosphatase 905 H Total Protein 5.3 L Albumin 1.5 L Globulin 3.8 Albumin/Globulin Ratio 0.4 L Procalcitonin 1.92 H Nasal Screen MRSA (PCR) Vancomycin Trough 09/21/19 09/21/19 09/21/19 08:53 09:51 11:50 WBC RBC Hgb Hct MCV MCH MCHC RDW Std Deviation RDW Coeff of Arlyn Plt Count MPV Immature Gran % (Auto) Neut % (Auto) Lymph % (Auto) [place] % (Auto) Eos % (Auto) Baso % (Auto) Immature Gran # (Auto) Neut # (Auto) Lymph # (Auto) [place] # (Auto) Eos # (Auto) Baso # (Auto) Sample Site L Radial POC pH 7.35 POC pCO2 41 POC pO2 84 POC HCO3 23 POC Total CO2 24 POC Base Excess -3.0 POC ABG O2 Sat 96.0 H Adrien Test Pass O2 Delivery Device BIPAP POC FiO2 30 IPAP 16 Sodium Potassium Chloride Carbon Dioxide Anion Gap BUN Creatinine Est Cr Clr Drug Dosing Est GFR ( Amer) Est GFR (Non-Af Amer) BUN/Creatinine Ratio Glucose POC Glucose 99 Calcium Phosphorus Magnesium Total Bilirubin AST ALT Alkaline Phosphatase Total Protein Albumin Globulin Albumin/Globulin Ratio Procalcitonin Nasal Screen MRSA (PCR) Negative Vancomycin Trough 09/21/19 17:40 WBC RBC Hgb Hct MCV MCH MCHC RDW Std Deviation RDW Coeff of Arlyn Plt Count MPV Immature Gran % (Auto) Neut % (Auto) Lymph % (Auto) [place] % (Auto) Eos % (Auto) Baso % (Auto) Immature Gran # (Auto) Neut # (Auto) Lymph # (Auto) [place] # (Auto) Eos # (Auto) Baso # (Auto) Sample Site POC pH POC pCO2 POC pO2 POC HCO3 POC Total CO2 POC Base Excess POC ABG O2 Sat Adrien Test O2 Delivery Device POC FiO2 IPAP Sodium Potassium Chloride Carbon Dioxide Anion Gap BUN Creatinine Est Cr Clr Drug Dosing Est GFR ( Amer) Est GFR (Non-Af Amer) BUN/Creatinine Ratio Glucose POC Glucose Calcium Phosphorus Magnesium Total Bilirubin AST ALT Alkaline Phosphatase Total Protein Albumin Globulin Albumin/Globulin Ratio Procalcitonin Nasal Screen MRSA (PCR) Vancomycin Trough Pending
[2019-09-22] MEDS: D5W AND 1/2NSS 1,000 ML IV SCH ×2 (01:56→19:29)
[2019-09-22] MEDS: HYDROmorphone INJ 0.5 MG/0.5 ML SYR IV PRN (02:36)
[2019-09-22] MEDS ORDERED: KETOROLAC TROMETHAMINE 15 MG/ML VIAL IV ONE (04:03)
[2019-09-22] MEDS: CEFEPIME 2,000 MG in SYRINGE 7.5 ML IV SCH ×2 (07:38→14:00)
[2019-09-22] MEDS ORDERED: SODIUM CHLORIDE 0.9% 1000ML 500 ML IV ONE (07:44)
--- NOTE | 2019-09-22 15:49 | Hospitalist Progress Note ---
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 fib, anemia, presented with altered mental status. -Sepsis possibly secondary to bilateral pneumonia-possible HCAP versus aspiration, admission lactic acid 4.1, was started on sepsis treatment and then weaned off BIPAP to nasal cannula oxygen -was empirically started on IV vancomycin and IV cefepime, cultures no growth to date -patient generally lethargic -goals of care have been discussed with patient's Alma Rosa ([phone]) -Discharge to home with hospice ([facility] hospice) -As per Dr. Perdomo from palliative care, there is little to no benefit in continuing IV antibiotics and all IV antibiotics stopped on 09/22/2019 after discussing with patient's Alma Rosa ([phone]) in agreement -As per Dr. Perdomo, hospitalist have made discharge prescription for pain control as [employer]UDENT [employer]ICE PRESIDENT pump with 0.1 mg/hr Dilaudid (hydromorphone) with 0.2 mg q15 minutes as subcutaneous route because of pain from cancer and because of patient's dependence on methadone pain medications in the past -As per Dr. Perdomo, patient also with discharge prescription for normal saline as 80 cc/hr as subcutaneous route for hydration. Hospitalist also noting that patient has chest port and if this method causes concern for fluid overload then also permit that normal saline can be given through chest port intravenously. -Rheumatoid arthritis: stopped Plaquenil on discharge medication list -RV dysfunction, Paroxysmal atrial fibrillation, stopped metoprolol from home medication list -no further labs in regards to anemia or for other health issues because of discharge on home hospice Admission and Anticipated Discharge Date Admission Date: September 20, 2019 Subjective Patient is lethargic. Has been sleeping all day. Goals of care discussed with palliative care, patient's and patient to be discharge on home hospice Review of Systems Review of Systems: Unobtainable due to cognitive status Physical Exam Constitutional: + lethargic Neck: normal visual inspection Respiratory: normal respiratory effort, lungs clear to auscultation Cardiovascular: Rate/Rhythm: regular rate Gastrointestinal (Abdomen): Inspection/Auscultation: abdomen normal to inspection Percussion/Palpation: abdomen soft Musculoskeletal: Head/Neck/Chest: normocephalic and head atraumatic Results & Data Results & Data ([facility]) Vital Signs (Past 12 Hours) Vital Signs Temp Pulse Resp BP Pulse Ox 09/22/19 11:18 106 H 12 96 09/22/19 08:04 109 H 96 09/22/19 04:11 37.5 C 119 H 18 116/61 99
--- NOTE | 2019-09-22 15:55 | Discharge Summary ---
Date of Service September 22, 2019 Admission HPI Per Admitting Provider 64-year-old male with history of esophageal cancer with metastasis to the lungs, liver, bone, Moderate arthritis on Plaquenil, right ventricular dysfunction, paroxysmal A. fib, anemia, presenting with unresponsive episode this morning. History obtained from patient's due to patient's altered mental status. Patient was discharged from [facility] last week after being treated for pneumonia, and vomiting, placement of esophageal stenting. As per patient's , the patient was noted to have a very poor appetite at home, not able to tolerate food or drinks, mostly more vomiting after eating or drinking. Last night, the patient was given lorazepam for the first time along with his usual methadone. When his checked on him at around 3 AM the patient was noted to be unresponsive. He was then brought to the ER. At the ER, the patient was received unresponsive. Received Narcan and Romazicon. After that, the patient was found to be combative and restless. At one point the patient desaturated, and became hypoxic and lethargic. ABG revealed respiratory acidosis secondary to hypercapnia. She was then placed on BiPAP. After some point, the patient was found to have vomiting and BiPAP was removed. On my exam, the patient is on oxygen mask, but very lethargic. Responds to painful stimuli, able to speak a few words but very garbled, and goes right back to sleep. BiPAP reordered. Principal Diagnosis Acute hypercapnic and hypoxic respiratory failure / Acute Encephalopathy secondary to pneumonia, narcotic and benzodiazepine Sepsis possibly secondary to bilateral pneumonia-possible HCAP versus aspiration chronic pain secondary to metastatic esophageal adenocarcinoma Rheumatoid arthritis Paroxysmal atrial fibrillation Anemia Discharge Exam Constitutional + lethargic Neck normal visual inspection Respiratory normal respiratory effort, lungs clear to auscultation Cardiovascular Rate/Rhythm: regular rate Gastrointestinal (Abdomen) Inspection/Auscultation: abdomen normal to inspection Percussion/Palpation: abdomen soft Musculoskeletal Head/Neck/Chest: normocephalic and head atraumatic Discharge Data Allergies Allergy/AdvReac Type Severity Reaction Status Date / Time No Known Allergies Allergy Verified 09/20/19 05:19 Consultations 09/20/19 06:55 ED Decision to Admit Stat 09/20/19 10:30 Consult Pulmonology Routine 09/20/19 20:32 Consult Lumber Racker Routine 09/20/19 21:11 Consult Palliative Care Routine Ordered Studies 09/20/19 05:06 CT head/brain wo con Urgent Hospital Course (1) Sepsis: Acute hypercapnic and hypoxic respiratory failure / Acute Encephalopathy secondary to pneumonia, narcotic and benzodiazepine Sepsis possibly secondary to bilateral pneumonia-possible HCAP versus aspiration chronic pain secondary to metastatic esophageal adenocarcinoma Rheumatoid arthritis Paroxysmal atrial fibrillation Anemia -64-year-old male with history of esophageal adenocarcinoma, 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 fib, anemia, presented with altered mental status. -Sepsis possibly secondary to bilateral pneumonia-possible HCAP versus aspiration, admission lactic acid 4.1, was started on sepsis treatment and then weaned off BIPAP to nasal cannula oxygen -was empirically started on IV vancomycin and IV cefepime, cultures no growth to date -patient generally lethargic -goals of care have been discussed with patient's Alma Rosa ([phone]) -Discharge to home with hospice ([facility] hospice) -As per Dr. Perdomo from palliative care, there is little to no benefit in continuing IV antibiotics and all IV antibiotics stopped on 09/22/2019 after discussing with patient's Alma Rosa ([phone]) in agreement -As per Dr. Perdomo, hospitalist have made discharge prescription for pain control as [employer]ERIFF pump with 0.1 mg/hr Dilaudid (hydromorphone) with 0.2 mg q15 minutes as subcutaneous route because of pain from cancer and because of patient's dependence on methadone pain medications in the past -As per Dr. Perdomo, patient also with discharge prescription for normal saline as 80 cc/hr as subcutaneous route for hydration. Hospitalist also noting that patient has chest port and if this method causes concern for fluid overload then also permit that normal saline can be given through chest port intravenously. -Rheumatoid arthritis: stopped Plaquenil on discharge medication list -RV dysfunction, Paroxysmal atrial fibrillation, stopped metoprolol from home medication list -no further labs in regards to anemia or for other health issues because of discharge on home hospice Total Time Total Time Spent Total Time Spent (In Minutes): 40 minutes Total Time Includes: Examination of the Patient, Discharge Planning, Medication Reconciliation and Communication With Other Providers Discharge Plan Discharge Items Patient Disposition: Hospice - Home Reason For Visit: ALTERED MENTAL STATUS Discharge Diagnosis: Acute hypercapnic and hypoxic respiratory failure / Acute Encephalopathy secondary to pneumonia, narcotic and benzodiazepine Sepsis possibly secondary to bilateral pneumonia-possible HCAP versus aspiration chronic pain secondary to metastatic esophageal adenocarcinoma Rheumatoid arthritis Paroxysmal atrial fibrillation Anemia Activity: Per Instructions section Non-emergency contact: Primary Care Provider Call non-emergency contact if: you have any medication questions Follow-up/Referrals: Grzegorz Jaquez DO [Primary Care Provider] - Diet: Other - See Diet Comment Diet Comment: non per oral (NPO) unless for comfort sips or food for comfort Addtl Attending Provider Instructions: Discharge to home with hospice ([facility] hospice) As per Dr. Perdomo from palliative care, there is little to no benefit in continuing IV antibiotics and all IV antibiotics stopped on 09/22/2019 after discussing with patient's Alma Rosa ([phone]) in agreement As per Dr. Perdomo, hospitalist have made discharge prescription for pain control as 0.1 mg/hr Dilaudid (hydromorphone) with 0.2 mg q15 minutes as subcutaneous route because of pain from cancer and because of patient's dependence on methadone pain medications in the past As per Dr. Perdomo, patient also with discharge prescription for normal saline as 80 cc/hr as subcutaneous route for hydration. Hospitalist also noting that patient has chest port and if this method causes concern for fluid overload then also permit that normal saline can be given through chest port intravenously. Pending Studies at Discharge: No Stand-Alone Forms: My [facility] Medications and DC Order Prescriptions: Continued hydrocortisone [Proctosol HC] 2.5 % Cream With Perineal Applicator 1 applic EXT BID PRN (Reason: hemorrhoids) 30 Days Qty: 1 RF: 0 lorazepam [Ativan] 1 mg tablet 0.5 mg PO Q4 PRN (Reason: restlessness/insomnia) RF: 0 Discontinued hydroxychloroquine 200 mg tablet 400 mg PO DAILY@1999 RF: 0 polyethylene glycol 3350 [Miralax] 17 gram Powder In Packet 17 g PO DAILY PRN (Reason: constipation) Qty: 30 RF: 0 aspirin 81 mg Tablet,Delayed Release (Dr/Ec) 81 mg PO DAILY Qty: 30 RF: 0 naloxone 4 mg/actuation spray,non-aerosol 4 mg intranasal UD PRN (Reason: Opiate Reversal) RF: 0 Metamucil 3.4 gram/5.4 gram Powder 1 tbsp PO DAILY PRN (Reason: Diarrhea) RF: 0 acetaminophen [Tylenol Extra Strength] 500 mg Tablet 1,000 mg PO Q8 PRN (Reason: Fever Or Pain) RF: 0 metoprolol succinate 50 mg tablet extended release 24 hr 50 mg PO BID RF: 0 gabapentin 100 mg Capsule 100 mg PO TID@0800,1400,2100 30 Days Qty: 90 RF: 0 morphine 15 mg Tablet 7.5 mg PO Q6H PRN (Reason: pain) Qty: 1 RF: 0 methadone 5 mg tablet 10 mg PO BID Qty: 0 RF: 0 acetaminophen 650 mg suppository 650 mg IN Q4 MDD 4gm PRN (Reason: Fever Or Pain) RF: 0 sucralfate 1 gram tablet 1 g PO ACHS RF: 0 fentanyl 50 mcg/hr patch 72 hour 50 mcg transdermal [id number] RF: 0 hyoscyamine sulfate 0.125 mg tablet 0.125 mg PO Q4 PRN (Reason: terminal secretions) RF: 0 haloperidol lactate 2 mg/mL concentrate 1 mg PO Q4 PRN (Reason: nausea/vomiting/agitation) RF: 0 ondansetron HCl 8 mg tablet 8 mg PO Q8 PRN (Reason: Nausea And Vomiting) RF: 0 Lactinex 1 million cell tablet,chewable 1 tab PO TIDM RF: 0 morphine concentrate 100 mg/5 mL (20 mg/mL) solution 5 mg PO . Q 2 HOURS PRN (Reason: pain/sob) RF: 0 loperamide [Imodium A-D] 2 mg tablet 2 mg PO UD PRN (Reason: Diarrhea) RF: 0 pantoprazole 40 mg tablet,delayed release (DR/EC) 40 mg PO BID RF: 0 Discharge Orders: Discharge Order (Routine); Ordered 09/22/19 Ordered By: Mau Parnell Admission Data Admit Date/Time: 09/20/19 09:28 Attending Provider: Mau Parnell Admit Provider: Jaren Quintanilla Primary Care Provider: Grzegorz Jaquez Other Providers: Jaren Quintanilla ; Karlo Correa ; Art Tolbert ; Emmy Perdomo
[2019-09-22] MEDS ORDERED: haloperidoL 1 MG TAB PO PRN (18:39)
[2019-09-22] MEDS ORDERED: HALOPERIDOL LACTATE 5 MG/ML 1 ML VIAL IM STA (18:39)
== END 2019-09-22 19:24 | disposition hospice, home (50) | DRG 374 ==
LOC: ED 04:50 → SUATTDRO 09:28 → 2S 09:28 → 1E 11:16 → 2N 09-21 12:27 → 3E 09-21 22:13